=== PATIENT | female | born 1950 | race African-American/Black ===

== ENCOUNTER 2016-03-04 16:08 | Inpatient (IN) | payer OTHER ==
[~2016-03-04] VITALS: Ht 172.7 cm; Wt 134.2 kg
[~2016-03-04 16:08] MED LIST: LETR2.5T PO; LISI2.5T3 PO; LORTA5 PO
[2016-03-04 16:10] VITALS: BP 157/79; PULSE 80; RESP 20; TEMP 97.8; O2SAT 98
[2016-03-04] MEDS ORDERED: LETR2.5T PO (16:26)
[2016-03-04] MEDS ORDERED: LISI20TA3 PO (16:26)
[2016-03-04] MEDS ORDERED: SODIUM CHLOR 0.9% 1000 ML INJ 1,000 ML IV SCH ×4 (16:26→17:45)
[2016-03-04 16:27] VITALS: BP 190/86; PULSE 67; RESP 26; O2SAT 97
[2016-03-04] MEDS ORDERED: SODIUM CHLORIDE 0.9% FLUSH 5 ML FLUSH IVF PRN (16:30)
[2016-03-04] MEDS ORDERED: ONDANSETRON HCL 4 MG/2 ML VIAL IVP ONE (16:30)
[2016-03-04 16:45] LABS: BLOOD GAS BASE EXCESS -1.1 mmol/L (-2-2); BLOOD GAS CARBOXYHEMOGLOBIN 1.8 % (0-4); BLOOD GAS HCO3 23 mmol/L (22-26); BLOOD GAS METHEMOGLOBIN 1.9 % (0-2); BLOOD GAS O2 HGB SATURATION 90 % (90-100); BLOOD GAS OXYGEN CONTENT 17.9 Vol % (12.0-20.0); BLOOD GAS PCO2 35 mmHg (38-42); BLOOD GAS PO2 63 mmHG (61-120); BLOOD GAS TOTAL HGB 14.2 G/DL (12.0-16.0); CRITICAL VALUE NO; DRAW SITE RT RADIAL; FIO2 21 %; NUMBER OF ARTERIAL PUNCTURES 1; STAT YES; TEMP CORR TO 98.6; ULNAR PULSE PRESENT
--- NOTE | 2016-03-04 16:47 | PD ---
HPI Chief Complaint: Abdominal Pain Time Seen by Provider: 16:21 Travel History International Travel<30 days: No Contact w/Intl Traveler<30days: No Traveled to known affect area: No History of Present Illness HPI This is a 66-year-old female who presents to the emergency department having had onset of vomiting starting yesterday evening, severe, constant, unable to keep anything down today. She did have a loose stool yesterday prior to the onset of her symptoms. She denies any fevers or chills. She denies any dysuria or hematuria. She's never had symptoms like this before. Patient is quite lethargic and most of her history is obtained through her family member. The patient does deny any headache or chest pain. She's never had surgery on her abdomen. PFSH Past Medical History Cancer: Yes (breast) Diminished Hearing: No Hypertension: Yes Past Surgical History Hysterectomy: Yes Other Surgery: Yes (RT MASTECTOMY) Social History Alcohol Use: No Tobacco Use: No Substance Use: No Allergies-Medications (Allergen,Severity, Reaction): Coded Allergies: No Known Allergies (Verified , 02/18/15) Reported Meds & Prescriptions Reported Meds & Active Scripts Active Reported Letrozole 2.5 Mg Tab 1 Tab PO DAILY Lisinopril-Hctz 20-25 Mg Tab 1 Tab PO DAILY Review of Systems Except as stated in HPI: all other systems reviewed are Neg Physical Exam Narrative GENERAL:Ill appearing SKIN: Warm and dry. HEAD: Atraumatic. Normocephalic. EYES: Pupils equal and round. No injection or drainage. ENT: Moist mucous membranes NECK: Trachea midline. CARDIOVASCULAR: Regular rate and rhythm. No murmur appreciated. RESPIRATORY: Clear to auscultation. Breath sounds equal bilaterally. GASTROINTESTINAL: Abdomen soft, diffusely tender to palpation, worst in the upper abdomen with no rebound/guarding MUSCULOSKELETAL: No obvious deformities. NEUROLOGICAL: Awake and alert. No obvious cranial nerve deficits. Moving all extremities PSYCHIATRIC: Appropriate mood and affect; insight and judgment normal. Data Data Last Documented VS Vital Signs Date Time Temp Pulse Resp B/P Pulse Ox O2 Delivery O2 Flow Rate FiO2 03/04/16 17:30 70 14 204/90 96 Room Air 03/04/16 16:49 2.00 03/04/16 16:10 97.8 Orders Complete Blood Count With Diff (03/04/16 16:26) Comprehensive Metabolic Panel (03/04/16 16:26) Lipase (03/04/16 16:26) Lactic Acid (03/04/16 16:26) Prothrombin Time / Inr (Pt) (03/04/16 16:26) Act Partial Throm Time (Ptt) (03/04/16 16:26) Urinalysis - C+S If Indicated (03/04/16 16:26) Iv Access Insert/Monitor (03/04/16 16:26) Ecg Monitoring (03/04/16 16:26) Oximetry (03/04/16 16:26) Ondansetron Inj (Zofran Inj) (03/04/16 16:30) Sodium Chlor 0.9% 1000 Ml Inj (Ns 1000 M (03/04/16 16:26) Sodium Chloride 0.9% Flush (Ns Flush) (03/04/16 16:30) Chest, Single Ap (03/04/16 16:26) Sodium Chlor 0.9% 1000 Ml Inj (Ns 1000 M (03/04/16 16:30) Troponin I (03/04/16 16:26) Electrocardiogram (03/04/16 ) Arterial Blood Gas (Abg) (03/04/16 ) Blood Culture (03/04/16 16:52) Piperacil-Tazo 3.375 Gm Premix (Zosyn 3. (03/04/16 17:45) Us Abdomen Gallbladder (03/04/16 ) Sodium Chlor 0.9% 1000 Ml Inj (Ns 1000 M (03/04/16 17:45) Sodium Chlor 0.9% 1000 Ml Inj (Ns 1000 M (03/04/16 17:45) Morphine Inj (Morphine Inj) (03/04/16 17:45) Urine Culture (03/04/16 16:44) Mri Mrcp W/O Contrast (03/04/16 ) Admit Order (Ed Use Only) (03/04/16 18:02) Consult Gastroenterology (03/04/16 ) Labs Laboratory Tests Test 03/04/16 03/04/16 03/04/16 16:38 16:44 16:50 Blood Gas Puncture Site RT RADIAL Blood Gas Patient Temperature 98.6 Blood Gas HCO3 23 mmol/L Blood Gas Base Excess -1.1 mmol/L Blood Gas Oxygen Saturation 90 % Arterial Blood pH 7.42 Arterial Blood Partial 35 mmHg Pressure CO2 Arterial Blood Partial 63 mmHG Pressure O2 Arterial Blood Oxygen Content 17.9 Vol % Arterial Blood 1.8 % Carboxyhemoglobin Arterial Blood Methemoglobin 1.9 % Blood Gas Hemoglobin 14.2 G/DL Blood Gas Inspired Oxygen 21 % Urine Color DARK-BROWN Urine Turbidity HAZY Urine pH 5.5 Urine Specific [place] 1.025 Urine Protein 30 mg/dL Urine Glucose (UA) TRACE mg/dL Urine Ketones NEG mg/dL Urine Occult Blood SMALL Urine Nitrite NEG Urine Bilirubin MOD Urine Urobilinogen 8.0 MG/DL Urine Leukocyte Esterase NEG Urine RBC 2 /hpf Urine WBC 33 /hpf Urine Squamous Epithelial 1 /hpf Cells Urine Bacteria RARE /hpf Urine Hyaline Casts 7 /lpf Urine Granular Casts 1 /lpf Urine Mucus MOD /lpf Microscopic Urinalysis Comment CULTURE INDICATED White Blood Count 16.8 TH/MM3 Red Blood Count 5.09 MIL/MM3 Hemoglobin 14.5 GM/DL Hematocrit 43.3 % Mean Corpuscular Volume 85.1 FL Mean Corpuscular Hemoglobin 28.5 PG Mean Corpuscular Hemoglobin 33.5 % Concent Red Cell Distribution Width 13.9 % Platelet Count 246 TH/MM3 Mean Platelet Volume 9.2 FL Neutrophils (%) (Auto) 89.8 % Lymphocytes (%) (Auto) 2.7 % Monocytes (%) (Auto) 7.3 % Eosinophils (%) (Auto) 0.0 % Basophils (%) (Auto) 0.2 % Neutrophils # (Auto) 15.1 TH/MM3 Lymphocytes # (Auto) 0.4 TH/MM3 Monocytes # (Auto) 1.2 TH/MM3 Eosinophils # (Auto) 0.0 TH/MM3 Basophils # (Auto) 0.0 TH/MM3 CBC Comment DIFF FINAL Differential Comment Prothrombin Time 12.0 SEC Prothromb Time International 1.1 RATIO Ratio Activated Partial 24.3 SEC Thromboplast Time Sodium Level 138 MEQ/L Potassium Level 3.1 MEQ/L Chloride Level 100 MEQ/L Carbon Dioxide Level 25.4 MEQ/L Anion Gap 13 MEQ/L Blood Urea Nitrogen 14 MG/DL Creatinine 1.20 MG/DL Random Glucose 207 MG/DL Lactic Acid Level 4.5 mmol/L Calcium Level 10.5 MG/DL Total Bilirubin 4.0 MG/DL Aspartate Amino Transf 472 U/L (AST/SGOT) Alanine Aminotransferase 378 U/L (ALT/SGPT) Alkaline Phosphatase 154 U/L Troponin I LESS THAN 0.02 NG/ML Total Protein 8.5 GM/DL Albumin 3.7 GM/DL Lipase 7635 U/L [facility] Medical Decision Making Medical Screen Exam Complete: Yes Emergency Medical Condition: Yes Interpretation(s) Afebrile, no tachycardia, hypertensive, tachypneic Leukocytosis with left shift Mild hypokalemia Total bilirubin is 4 Transaminitis Lipase is 7635 Lactic acid is 4.5 PH is 7.42 Urinalysis demonstrates some white blood cells Differential Diagnosis Perforated ulcer, cholecystitis, colitis, cholangitis, ischemic bowel Narrative Course This is a 66-year-old female who presents to the emergency department ill- appearing after 2 days of vomiting and abdominal pain. She was placed on a monitor and 2 IVs were established. She was given 2 L of IV fluid up front, cultures were obtained and the patient was started on IV Zosyn. Upright plain films demonstrated no free air. Labs resulted in were consistent with cholangitis and sepsis. Patient is given an additional 2 L of IV fluid. I spoke to Dr. Reyes on-call for GI who ordered an MRCP. Ultrasound is also pending. Patient will be admitted to the intensive care unit for concern for possible deterioration as she was quite ill-appearing on arrival. Critical Care Narrative Aggregate critical care time was 60 minutes. Time to perform other separately billable procedures was not included in the critical care time. My time did not include minutes spent treating any other patients simultaneously or on activities that did not directly contribute to the patient's treatment. The services I provided to this patient were to treat and/or prevent clinically significant deterioration that could result in: Disability, I provided critical care services requiring my management, as noted below: Chart data review, documentation time, medication orders and management, vital sign assessments/reviewing monitor data, ordering and reviewing lab tests, ordering and interpreting/reviewing x-rays and diagnostic studies, care of the patient and discussion of the patient with the admitting physicians. Diagnosis Primary Impression: Cholangitis Admitting Information Admitting Physician Requests: Admit Jina Farias MD Mar 04, 2016 16:47
[2016-03-04 16:49] VITALS: O2SAT 95
[2016-03-04 17:20] LABS: AUTOMATED NEUTROPHIL # 15.1 TH/MM3 (1.8-7.7); BASOPHIL % 0.2 % (0.0-2.0); HEMATOCRIT 43.3 % (35.0-46.0); HEMO FLAGS DIFF FINAL; LYMPH % 2.7 % (9.0-44.0); LYMPHOCYTE # 0.4 TH/MM3 (1.0-4.8); MEAN CELL VOLUME 85.1 FL (80.0-100.0); MEAN CORPUSCULAR HEMOGLOBIN 28.5 PG (27.0-34.0); MEAN CORPUSCULAR HGB CONC 33.5 % (32.0-36.0); MONO % 7.3 % (0.0-8.0); NEUT % 89.8 % (16.0-70.0); PLATELET COUNT 246 TH/MM3 (150-450); RED BLOOD COUNT 5.09 MIL/MM3 (4.00-5.30); RED CELL DISTRIBUTION WIDTH 13.9 % (11.6-17.2); WHITE BLOOD COUNT 16.8 TH/MM3 (4.0-11.0)
--- NOTE | 2016-03-04 17:23 | RADRPT ---
EXAM DATE/TIME: 03/04/2016 16:52 [facility] COMPARISON: No previous studies available for comparison. INDICATIONS : Possible Free Air MEDICAL HISTORY : Hypertension. SURGICAL HISTORY : Mastectomy, right. Hysterectomy. ENCOUNTER: Initial ACUITY: 1 day PAIN SCORE: 10/10 LOCATION: Abdominal FINDINGS: There is mild elevation of the right hemidiaphragm. The heart is mildly enlarged. The pulmonary vas cular pattern is normal. The lungs are clear. CONCLUSION: 1. Mild cardiomegaly. 2. No acute focal pulmonary infiltrate or pulmonary vascular congestion. 3. Mild elevation of right hemidiaphragm. Odilon Butler MD on March 04, 2016 at 17:17 Board Certified Radiologist. This report was verified electronically.
[2016-03-04 17:30] VITALS: BP 204/90; PULSE 70; RESP 14; O2SAT 96
[2016-03-04 17:32] LABS: ALT (GPT) 378 U/L (10-53); ANION GAP 13 MEQ/L (5-15); AST (GOT) 472 U/L (15-37); BICARBONATE 25.4 MEQ/L (21.0-32.0); BLOOD UREA NITROGEN 14 MG/DL (7-18); CHLORIDE 100 MEQ/L (98-107); POTASSIUM 3.1 MEQ/L (3.5-5.1); SODIUM (NA) 138 MEQ/L (136-145)
[2016-03-04 17:36] LABS: BACTERIA, URINE RARE /hpf; BLOOD, URINE SMALL (NEG); COMMENT (UR) CULTURE INDICATED; CULTURE IF INDICATED CULTURE INDICATED; GLUCOSE,URINE TRACE mg/dL (NEG); GRANULAR CAST, URINE 1 /lpf; HYALINE CAST, URINE 7 /lpf (RARE); KETONE, URINE NEG (NEG); MUCUS URINE MOD /lpf (OCC); NITRITE,URINE NEG (NEG); PH, URINE 5.5 (5.0-8.5); SQUAMOUS EPITHELIAL CELL URINE 1 /hpf (0-5)
[2016-03-04 17:36] LABS: ALKALINE PHOSPHATASE 154 U/L (45-117)
[2016-03-04 17:44] LABS: APTT (PATIENT) 24.3 SEC (24.3-30.1); INTERNATIONAL NORMALIZED RATIO 1.1 RATIO
[2016-03-04] MEDS ORDERED: PIPERACIL-TAZO 3.375 GM PREMIX 50 ML IV ONE (17:45)
[2016-03-04] MEDS ORDERED: MORPHINE SULFATE 4 MG/ML INJ IV PUSH ONE (17:45)
[2016-03-04 17:49] LABS: URINE COLOR DARK-BROWN (YELLW/STRAW)
[2016-03-04] MEDS: SODIUM CHLOR 0.9% 1000 ML INJ 1,000 ML IV SCH (18:07)
[2016-03-04] MEDS ORDERED: SODIUM CHLORIDE 0.9% FLUSH 5 ML FLUSH IV FLUSH PRN (18:15)
[2016-03-04] MEDS ORDERED: MAGNESIUM SULFATE INJ 4 GM in SODIUM CHLORIDE 0.9% INJ 92 ML IV PRN (18:15)
[2016-03-04] MEDS ORDERED: MORPHINE SULFATE 4 MG/ML INJ IV PRN (18:15)
[2016-03-04] MEDS ORDERED: POTASSIUM PHOSPHATE MONOBASIC 500 MG TAB PO/TUBE PRN (18:15)
[2016-03-04] MEDS ORDERED: SODIUM PHOSPHATE INJ 30 MMOL in SODIUM CHLOR 0.9% 250 ML INJ 240 ML IV PRN (18:15)
[2016-03-04] MEDS ORDERED: POTASSIUM CHLOR 40 MEQ PREMIX 100 ML IV PRN ×2 (18:15)
[2016-03-04] MEDS ORDERED: CHLORHEXIDINE GLUCONATE 2 % 1 PACK (2 CLOTHS) TOP PRN (18:15)
[2016-03-04] MEDS ORDERED: LABETALOL HCL 100 MG/20 ML VIAL IV PUSH PRN (18:15)
[2016-03-04] MEDS ORDERED: RESP: ALBUTEROL 2.5 MG/IPRATROPIUM 0.5 MG NEB (PRN) INH (18:15)
[2016-03-04] MEDS ORDERED: MAGNESIUM SULFATE INJ 2 GM in SODIUM CHLORIDE 0.9% INJ 96 ML IV PRN (18:15)
[2016-03-04] MEDS ORDERED: ONDANSETRON HCL 4 MG/2 ML VIAL IV PRN (18:15)
[2016-03-04] MEDS ORDERED: POTASSIUM PHOSPHATE INJ 30 MMOL in SODIUM CHLOR 0.9% 250 ML INJ 250 ML IV PRN (18:15)
[2016-03-04] MEDS ORDERED: MISCELLANEOUS NURSING INFORMATION XX SCH (18:15)
[2016-03-04] MEDS ORDERED: POTASSIUM CL 40 MEQ/30 ML LIQ UDC PO/TUBE PRN ×2 (18:15)
[2016-03-04] MEDS ORDERED: POTASSIUM CHLOR 20 MEQ PREMIX 100 ML IV PRN (18:15)
[2016-03-04] MEDS ORDERED: MAGNESIUM OXIDE 400 MG TAB PO PRN (18:15)
--- NOTE | 2016-03-04 18:35 | MB ---
cc: SCOT BROWN M.D. DATE OF CONSULTATION: 03/04/2016. REASON FOR CONSULTATION: Pancreatitis, possible cholecystitis versus common bile duct obstruction. DATE OF : 1950. REFERRING PHYSICIAN: Dr. Farias. HISTORY OF PRESENT ILLNESS: Mrs. Dalton is a very pleasant 66-year-old lady who was in her usual state of health when she suddenly developed nausea and vomiting yesterday evening with severe abdominal pain, unable to keep anything down. She did have some loose stools yesterday prior to her symptoms developing. She also had complained of some abdominal pain. At this point, the patient is complaining of diffuse abdominal pain. She did have some chills at home, unclear if she had fever or not. She denies any previous history of similar symptoms. No history of gallstones or pancreatic issues. She had a colonoscopy some time ago and according to her it was normal. PAST MEDICAL HISTORY: 1. Breast cancer status post surgery. 2. High blood pressure. PAST SURGICAL HISTORY: 1. Double mastectomy. 2. Hysterectomy. SOCIAL HISTORY: She denies smoking, drinking or drug use. ALLERGIES: NO KNOWN ALLERGIES. MEDICATIONS: 1. Letrozole. 2. Lisinopril. REVIEW OF SYSTEMS: CONSTITUTIONAL: She did have chills, felt sick. HEAD, EYES, EARS, NOSE, THROAT: No alteration in baseline hearing or visual acuity. PULMONARY: Denies any chest pain or shortness of breath. GASTROINTESTINAL: As above. GENITOURINARY: Denies any dysuria or hematuria. HEMATOLOGICAL: Denies any history of anemia or bleeding disorder. SKIN: No alteration in baseline skin lesions. NEUROLOGICAL: No history of TIA or CVA kind of symptoms. PHYSICAL EXAMINATION: GENERAL: On clinical exam, she is sitting in bed in mild distress. She looks sick. VITAL SIGNS: Temperature 97.8, pulse 80, respirations 20, blood pressure 157/79. HEAD, EYES, EARS, NOSE, THROAT: Pupils equal, round and reactive to light and accommodation. Mild jaundice. NECK: No jugular venous distention. No lymphadenopathy. CHEST: Clear to auscultation and palpation. CARDIOVASCULAR: S1 and S2, no murmur. ABDOMEN: Abdomen soft and obese, diffuse tenderness. Bowel sounds are present. LINING PARTS SEWER: Awake, alert and oriented times three. No focal signs identified. LABORATORY STUDIES: Her white count is 16.8, hemoglobin 14.5, platelets 246,000. PT/INR normal. Her chemistry IS suggestive of A glucose of 207, calcium 10.5 total bilirubin 4, AST 472 with ALT 378, alkaline phosphatase 154, lipase 7635. Urine test is pending. MEDICATIONS: She was started on: 1. Piperacillin. 2. IV fluids. 3. Morphine. 4. Zofran. IMAGING STUDIES: There are no abdominal images at this time. The patient just had a chest x-ray shows mild cardiomegaly and mild elevation of the right diaphragm. IMPRESSION: Mrs. Dalton is a very pleasant 66-year-old lady admitted with acute pancreatitis most likely biliary origin, concern for possible cholecystitis or cholangitis. RECOMMENDATIONS: 1. IV fluids. 2. IV antibiotics. 3. Right upper quadrant ultrasound was already ordered by the emergency room doctors. 4. STAT MRCP. 5. Lipid profile. 6. Direct and indirect bilirubin. 7. Protonix drip. 8. Supportive care. 9. Agree with admission to the intensive care unit. Further recommendation depending on the patient's clinical status and the imaging results. If any indication of common bile duct obstruction, may need ERCP. If any indication of cholecystitis, may need surgical consultation. Risks and benefits of possible ERCP were discussed with the patient and family at bedside and discussed with the emergency room physician. MD KIMBERLY MarvinB/PAM /6:06 PM /6:24 PM [facility]ENTERFifi
[2016-03-04] MEDS: PANTOPRAZOLE SODIUM 40 MG VIAL IV SCH (18:54)
--- NOTE | 2016-03-04 18:57 | RADRPT ---
EXAM DATE/TIME: 03/04/2016 18:24 [facility] COMPARISON: CT ABDOMEN & PELVIS W/O CONTRAST, February 18, 2015, 2:32. INDICATIONS : Pancreatitis. MEDICAL HISTORY : Hypertension. SURGICAL HISTORY : Hysterectomy. Mastectomy, right. ENCOUNTER: Initial ACUITY: 1 day PAIN SCORE: 4/10 LOCATION: Abdomen TECHNIQUE: Multiplanar, multisequence magnetic resonance imaging of the abdomen was performed. High-resolution 3D dataset was utilized to reconstruct maximum-intensity projection (MIP) images. FINDINGS: Breathing motion artifact degrades the examination. INTRAHEPATIC BILE DUCTS: Within normal limits. No significant anatomical variant is present. EXTRAHEPATIC BILE DUCTS: The common bile duct measures 6 mm. No stone or filling defect is identified. It does show a signific ant caliber change within the pancreatic head. It tapers to 1-2 mm. No discrete mass observed. GALLBLADDER: A few tiny stones are seen layering within the gallbladder. No gallbladder wall thickening. No disten tion of the gallbladder. LIVER: Normal size and signal intensity. No concerning liver lesion is identified on this non-contrast exam. PANCREAS: The pancreas is diffusely edematous and there is fluid throughout the retroperitoneum. No abscess or pseudocyst. No pancreatic ductal dilatation. No discrete mass. OTHER: The remaining visualized structures demonstrate no acute abnormality on this non-contrast exam. Tiny cortical cysts are seen involving each kidney. CONCLUSION: 1. Extensive edema throughout the retroperitoneum and pancreas. No abscess or pseudocyst. 2. Tiny layering gallstones within the gallbladder. No discrete common bile duct stone. There is tape ring of the common bile duct within the pancreatic head felt to be secondary to the edema within the pancreas. No discrete mass or choledocholithiasis. No intrahepatic or extrahepatic ductal dilatation. Maxwell Hsu Jr., MD on March 04, 2016 at 18:45 Board Certified Radiologist. This report was verified electronically.
[2016-03-04 20:00] VITALS: BP 207/87; PULSE 80; PULSE 96; RESP 24; TEMP 98; O2SAT 100
[2016-03-04] MEDS ORDERED: PIPERACIL-TAZO 4.5 GM PREMIX 100 ML IV SCH (20:00)
[2016-03-04] MEDS ORDERED: hydrALAZINE HCL 20 MG/ML VIAL IV PUSH PRN (20:00)
[2016-03-04 20:09] LABS: HDL CHOLESTEROL 64.2 MG/DL (40.0-60.0)
--- NOTE | 2016-03-04 20:22 | RADRPT ---
EXAM DATE/TIME: 03/04/2016 19:36 [facility] COMPARISON: No previous studies available for comparison. INDICATIONS : Right upper quadrant pain. MEDICAL HISTORY : Hypertension. Carcinoma, breast. SURGICAL HISTORY : Hysterectomy. Mastectomy, right. ENCOUNTER: Initial ACUITY: 2 days PAIN SCORE: 10/10 LOCATION: Right upper quadrant MEASUREMENTS: LIVER: 12.3 cm length COMMON DUCT: 4 mm RIGHT KIDNEY: 10.8 x 4.8 x 5.6 cm FINDINGS: The wall of the gallbladder is thickened. There is pericholecystic fluid. There is a gallstone with in the neck of the gallbladder. The findings raise the possibility of acute cholecystitis. Clinical correlation is recommended. There is free fluid within the expected region of Polanco's pouch. The liver is normal in size but demonstrates diffuse increased echogenicity consistent with probable fat ty infiltration. No focal hepatic mass is noted. No biliary ductal dilatation is noted. There is h epatopetal flow within the portal vein. The common bile duct is normal in caliber. There is poor vi sualization of the pancreas due to shadowing bowel gas. The right kidney is unremarkable without haily id mass or hydronephrosis. No stone is noted within the right kidney. CONCLUSION: 1. Thick-walled gallbladder with some pericholecystic fluid and multiple gallstones in the region of the neck. The findings are suggestive of acute cholecystitis. Clinical correlation is recommended. 2. Fatty liver. 3. Minimal ascites within Polanco's pouch. 4. Poor visualization of the pancreas due to shadowing bowel gas. Odilon Butler MD on March 04, 2016 at 20:14 Board Certified Radiologist. This report was verified electronically.
[2016-03-04] MEDS: HYDROmorphone HCL PF 1 MG/ML VIAL IV PRN (20:42)
[2016-03-04] MEDS ORDERED: SODIUM CHLORIDE 0.9% FLUSH 5 ML FLUSH IV FLUSH SCH (21:00)
[2016-03-04] MEDS: ENALAPRILAT 1.25 MG/ML VIAL IV PUSH SCH (22:10)
--- NOTE | 2016-03-04 22:12 | HHI.HP ---
[facility] Service Critical Care Medicine Primary Care Physician Vic Diaz, DO Admission Diagnosis cholangitis Diagnosis: (1) Severe sepsis with acute organ dysfunction Diagnosis: Principal (2) Cholangitis Diagnosis: Principal (3) Hypertensive urgency Diagnosis: Secondary Chief Complaint: Epigastric pain with vomiting for over 48 hours. Unable to eat or swallow her BP meds. Travel History International Travel<30 Days: No Contact w/Intl Traveler <30 Da: No Traveled to Known Affected Are: No Sepsis Criteria SIRS Criteria (2 or more): Heart rate over 90, WBC > 24342, < 4000 or > 10% bands Sepsis Criteria (SIRS+source): Infect source susp/known Severe Sepsis (+one): Organ Dysfunction, Lactate >2, Acute Oliguria/Renal Failure Criteria Outcome: Meets severe sepsis criteria History of Present Illness > 48 hour history of epigastric pain, vomiting. GB US reveals cholecystitis with stones in neck. MRCP - pancreatitis, ducts not dilated. Review of Systems ROS Vomiting, abdominal pain > 48 hrs. Past Family Social History Allergies: Coded Allergies: No Known Allergies (Verified , 02/18/15) Past Medical History Past Medical History Cancer: Yes (breast) Diminished Hearing: No Hypertension: Yes Past Surgical History Hysterectomy: Yes Other Surgery: Yes (RT MASTECTOMY) Social History Alcohol Use: No Tobacco Use: No Substance Use: No Allergies-Medications Allergies-Medications (Allergen,Severity, Reaction): Coded Allergies: No Known Allergies (Verified , 02/18/15) Reported Meds & Prescriptions Reported Meds & Active Scripts Active Reported Letrozole 2.5 Mg Tab 1 Tab PO DAILY Lisinopril-Hctz 20-25 Mg Tab 1 Tab PO DAILY Physical Exam Vital Signs Vital Signs Date Time Temp Pulse Resp B/P Pulse Ox O2 Delivery O2 Flow Rate FiO2 03/04/16 17:30 70 14 204/90 96 Room Air 03/04/16 16:49 95 Nasal Cannula 2.00 03/04/16 16:27 67 26 190/86 97 Room Air 03/04/16 16:10 97.8 80 20 157/79 98 Room Air Physical Exam Gen: Ill-appearing elderly woman. Head: Normal, flushed face. Neck: Supple, airway widely patent. Lungs: Clear with tachypnea, shallow breaths limited by abdominal pain. Heart: NL S1S2, no m,r. RRR. neck veins are flat. Abdomen: Diffusely tender to mild palpation, > RUQ, epigastrium No peritoneal irritation. BS few. Extremities: Flushed, warm, diaphoretic. Neuro: Lethargic, weak. O X 3. Follows commands, moves 4 limbs spontaneously. Laboratory Laboratory Tests Test 03/04/16 03/04/16 03/04/16 16:38 16:44 16:50 Blood Gas Puncture Site RT RADIAL Blood Gas Patient Temperature 98.6 Blood Gas HCO3 23 Blood Gas Base Excess -1.1 Blood Gas Oxygen Saturation 90 Arterial Blood pH 7.42 Arterial Blood Partial 35 Pressure CO2 Arterial Blood Partial 63 Pressure O2 Arterial Blood Oxygen Content 17.9 Arterial Blood 1.8 Carboxyhemoglobin Arterial Blood Methemoglobin 1.9 Blood Gas Hemoglobin 14.2 Blood Gas Inspired Oxygen 21 Urine Color DARK-BROWN Urine Turbidity HAZY Urine pH 5.5 Urine Specific [place] 1.025 Urine Protein 30 Urine Glucose (UA) TRACE Urine Ketones NEG Urine Occult Blood SMALL Urine Nitrite NEG Urine Bilirubin MOD Urine Urobilinogen 8.0 Urine Leukocyte Esterase NEG Urine RBC 2 Urine WBC 33 Urine Squamous Epithelial 1 Cells Urine Bacteria RARE Urine Hyaline Casts 7 Urine Granular Casts 1 Urine Mucus MOD Microscopic Urinalysis Comment CULTURE INDICATED White Blood Count 16.8 Red Blood Count 5.09 Hemoglobin 14.5 Hematocrit 43.3 Mean Corpuscular Volume 85.1 Mean Corpuscular Hemoglobin 28.5 Mean Corpuscular Hemoglobin 33.5 Concent Red Cell Distribution Width 13.9 Platelet Count 246 Mean Platelet Volume 9.2 Neutrophils (%) (Auto) 89.8 Lymphocytes (%) (Auto) 2.7 Monocytes (%) (Auto) 7.3 Eosinophils (%) (Auto) 0.0 Basophils (%) (Auto) 0.2 Neutrophils # (Auto) 15.1 Lymphocytes # (Auto) 0.4 Monocytes # (Auto) 1.2 Eosinophils # (Auto) 0.0 Basophils # (Auto) 0.0 CBC Comment DIFF FINAL Differential Comment Prothrombin Time 12.0 Prothromb Time International 1.1 Ratio Activated Partial 24.3 Thromboplast Time Sodium Level 138 Potassium Level 3.1 Chloride Level 100 Carbon Dioxide Level 25.4 Anion Gap 13 Blood Urea Nitrogen 14 Creatinine 1.20 Random Glucose 207 Lactic Acid Level 4.5 Calcium Level 10.5 Total Bilirubin 4.0 Direct Bilirubin 2.9 Aspartate Amino Transf 472 (AST/SGOT) Alanine Aminotransferase 378 (ALT/SGPT) Alkaline Phosphatase 154 Troponin I LESS THAN 0.02 Total Protein 8.5 Albumin 3.7 Triglycerides Level 117 Cholesterol Level 222 LDL Cholesterol 134 HDL Cholesterol 64.2 Cholesterol/HDL Ratio 3.45 Lipase 7635 Date/Time Procedure Status Source Growth 03/04/16 16:55 Aerobic Blood Culture Received Blood Peripheral Pending 03/04/16 16:55 Anaerobic Blood Culture Received Blood Peripheral Pending 03/04/16 16:44 Urine Culture Received Urine Clean Catch Pending Result Diagram: 03/04/16 1650 03/04/16 1650 Assessment and Plan Problem List: (1) Severe sepsis with acute organ dysfunction ICD Code: A41.9 Status: Acute (2) Cholangitis ICD Code: K83.0 Status: Acute (3) Hypertensive urgency ICD Code: I16.0 Status: Acute Assessment and Plan PLAN: CV: Aggressive hydration with NS to produce urine > 30/hr. IV hydralazine and labetalol. Hold GIFTY-I until better hydrated. RESP: Suppl O2 to keep sats > 92%. May require BiPAP. NEURO: Analgesia required. GI: NPO, consider NG decompression and bowel rest. ERCP/sphincterotomy planned REN. Serial LFTs, lipase. : Azul required for assessment of hydration status. HEME: Serial WBC. ID: [id number] coverage has been started, adjust for C&S blood. ENDO: Follow glucose, calcium closely. Anticipate glucose intolerance and hypocalcemia. RENAL: Electrolyte repalcement protocol. Hydration with isotonic solution. PROPHYLAXIS:Heparin sq tid, protonix. Overall impression: This woman presented with severe sepsis from cholangitis, marked dehydration, and lactic acidosis. She has been aggressively hydrated and loaded with IV antibiotics. She remains critically ill with a life-threatening biliary tract infection and requires attempt at emergency biliary decompression as soon as possible. Critical Care 48 mins aside from procedures Carl Maxwell MD Mar 04, 2016 22:12
[2016-03-04] MEDS ORDERED: SODIUM CHLOR 0.9% 1000 ML INJ 1,000 ML IV ONE (22:15)
[2016-03-04] MEDS ORDERED: IOHEXOL 350 MG/ML 100 ML BTL (for RAD DIAG) OTHER ONE (23:00)
[2016-03-05] VITALS (13 sets, daily range): BP systolic 93–160; BP diastolic 54–81; PULSE 80–132; RESP 14–27; TEMP 98.4–99.9; O2SAT 93–100
[2016-03-05] MEDS ORDERED: ONDANSETRON HCL 4 MG/5 ML UDC ONE (00:01)
--- NOTE | 2016-03-05 00:47 | RADRPT ---
EXAM DATE/TIME: 03/04/2016 23:02 [facility] COMPARISON: US ABDOMEN - GALLBLADDER, March 04, 2016, 19:36. INDICATIONS : Distal Common Bile Duct stricture, CDB stent placement. The right upper quadrant pain. Patient had an abnormal ultrasound demonstrating gallbladder wall thickening with pericholecystic fluid and multipl e gallstones. FLUORO TIME: 8.01 minutes IMAGE COUNT: 6 CONTRAST: Instilled by Ordering Physician MEDICAL HISTORY : Hypertension. Carcinoma, breast. SURGICAL HISTORY : Hysterectomy. Mastectomy, right. ENCOUNTER: Initial ACUITY: 1 day PAIN SCORE: Non-responsive. LOCATION: Abdomen FINDINGS: An ERCP was performed by the ordering physician. The images demonstrate placement of an endoscope and cannulization of the distal common bile duct. Th e common bile duct is within normal limits with no definite filling defects. The pancreatic duct is u nremarkable. The last image demonstrates placement of a stent catheter. CONCLUSION: ERCP as above. Vidal Ye MD on March 05, 2016 at 0:43 Board Certified Radiologist. This report was verified electronically.
[2016-03-05] MEDS: HYDROmorphone HCL PF 1 MG/ML VIAL IV PRN ×2 (01:18→19:36)
[2016-03-05] MEDS: SODIUM CHLOR 0.9% 1000 ML INJ 1,000 ML IV SCH ×4 (01:30→21:45)
[2016-03-05] MEDS: ENALAPRILAT 1.25 MG/ML VIAL IV PUSH SCH (02:00)
[2016-03-05 03:50] LABS: AUTOMATED NEUTROPHIL # 8.1 TH/MM3 (1.8-7.7); BASOPHIL % 0.4 % (0.0-2.0); HEMATOCRIT 37.4 % (35.0-46.0); HEMO FLAGS DIFF FINAL; LYMPH % 6.9 % (9.0-44.0); LYMPHOCYTE # 0.7 TH/MM3 (1.0-4.8); MEAN CELL VOLUME 86.5 FL (80.0-100.0); MEAN CORPUSCULAR HEMOGLOBIN 28.5 PG (27.0-34.0); MONO % 9.3 % (0.0-8.0); NEUT % 83.4 % (16.0-70.0); PLATELET COUNT 191 TH/MM3 (150-450); RED BLOOD COUNT 4.32 MIL/MM3 (4.00-5.30); RED CELL DISTRIBUTION WIDTH 14.3 % (11.6-17.2); WHITE BLOOD COUNT 9.7 TH/MM3 (4.0-11.0)
[2016-03-05] MEDS ORDERED: CHLORHEXIDINE GLUCONATE 2 % 1 PACK (2 CLOTHS) TOP SCH (04:00)
[2016-03-05] MEDS ORDERED: PIPERACIL-TAZO 4.5 GM PREMIX 100 ML IV SCH ×2 (04:00→07:00)
[2016-03-05 04:26] LABS: ALT (GPT) 292 U/L (10-53); ANION GAP 8 MEQ/L (5-15); AST (GOT) 355 U/L (15-37); BICARBONATE 23.8 MEQ/L (21.0-32.0); BLOOD UREA NITROGEN 14 MG/DL (7-18); CHLORIDE 110 MEQ/L (98-107); GLOMERULAR FILTRATION RATE 67 ML/MIN (>89); SODIUM (NA) 142 MEQ/L (136-145)
[2016-03-05 04:34] LABS: ALKALINE PHOSPHATASE 120 U/L (45-117); POTASSIUM 4.9 MEQ/L (3.5-5.1); TOTAL BILIRUBIN ADULT 5.3 MG/DL (0.2-1.0)
[2016-03-05] MEDS ORDERED: NITROGLYCERIN 2% OINT 1 GM PACKET TOPICAL PRN (06:45)
[2016-03-05] MEDS ORDERED: MISCELLANEOUS NURSING INFORMATION XX SCH (07:00)
[2016-03-05] MEDS ORDERED: SODIUM CHLORIDE 0.9% FLUSH 5 ML FLUSH IV FLUSH PRN (07:00)
[2016-03-05] MEDS ORDERED: DEXTROSE 50% IN WATER 50 ML VIAL(D50) IV PUSH PRN (07:00)
[2016-03-05] MEDS ORDERED: HEPARIN SODIUM - SQ 10,000 UNITS/ML VIAL SQ SCH (07:00)
[2016-03-05] MEDS ORDERED: GLUCAGON 1 MG/ML VIAL OTHER PRN (07:00)
[2016-03-05] MEDS ORDERED: cefTRIAXone INJ 1,000 MG in SODIUM CHLORIDE 0.9% INJ 100 ML IV SCH (07:00)
[2016-03-05] MEDS ORDERED: CHLORHEXIDINE GLUCONATE 2 % 1 PACK (2 CLOTHS) TOP PRN (07:00)
[2016-03-05] MEDS ORDERED: ONDANSETRON HCL 4 MG/2 ML VIAL IV PRN (07:00)
[2016-03-05] MEDS ORDERED: SENNOSIDES 8.6 MG TAB PO PRN (07:00)
--- NOTE | 2016-03-05 07:16 | HHI.CCPN ---
Subjective Remarks/Hospital Course > 48 hour history of epigastric pain, vomiting. GB US reveals cholecystitis with stones in neck. MRCP - pancreatitis, ducts not dilated. Subjective 03/05: Status post ERCP with stent placement, bile duct secondary to stricture overnight. Pain is currently 8/10. Cleared for clear liquid as by GI. Hemodynamically stable. Urine output is picking up. Objective Vital Signs Date Time Temp Pulse Resp B/P Pulse Ox O2 Delivery O2 Flow Rate FiO2 03/05/16 06:00 97 03/05/16 04:00 98.6 14 151/70 99 03/04/16 20:00 Nasal Cannula 4.00 Intake and Output 03/04/16 03/04/16 03/04/16 07:59 15:59 23:59 Intake Total 2000 ml Output Total 200 ml Balance 1800 ml Result Diagram: 03/05/16 0338 03/05/16 0338 Other Results Microbiology Date/Time Procedure Status Source Growth 03/04/16 16:55 Aerobic Blood Culture Received Blood Peripheral Pending 03/04/16 16:55 Anaerobic Blood Culture Received Blood Peripheral Pending 03/04/16 16:44 Urine Culture Received Urine Clean Catch Pending Imaging Last Impressions GI Procedure 03/05/16 0000 Signed Impressions: Service Date/Time: Friday, March 04, 2016 23:02 - CONCLUSION: ERCP as above. Vidal Ye MD Chest X-Ray 03/04/16 1626 Signed Impressions: Service Date/Time: Friday, March 04, 2016 16:52 - CONCLUSION: 1. Mild cardiomegaly. 2. No acute focal pulmonary infiltrate or pulmonary vascular congestion. 3. Mild elevation of right hemidiaphragm. Odilon Butler MD Gall Bladder Ultrasound 03/04/16 0000 Signed Impressions: Service Date/Time: Friday, March 04, 2016 19:36 - CONCLUSION: 1. Thick-walled gallbladder with some pericholecystic fluid and multiple gallstones in the region of the neck. The findings are suggestive of acute cholecystitis. Clinical correlation is recommended. 2. Fatty liver. 3. Minimal ascites within Polanco's pouch. 4. Poor visualization of the pancreas due to shadowing bowel gas. Odilon Butler MD Cholangiopancreatography MRI 03/04/16 0000 Signed Impressions: Service Date/Time: Friday, March 04, 2016 18:24 - CONCLUSION: 1. Extensive edema throughout the retroperitoneum and pancreas. No abscess or pseudocyst. 2. Tiny layering gallstones within the gallbladder. No discrete common bile duct stone. There is tapering of the common bile duct within the pancreatic head felt to be secondary to the edema within the pancreas. No discrete mass or choledocholithiasis. No intrahepatic or extrahepatic ductal dilatation. Maxwell Hsu Jr., MD Objective Remarks GENERAL: 66-year-old AA female, critically ill currently resting in bed in no acute distress SKIN: Warm and dry. No rash HEAD: Atraumatic. Normocephalic. EYES: Pupils equal and round around 3 mm bilaterally and reactive. No scleral icterus. No injection or drainage. ENT: No nasal bleeding or discharge. Mucous membranes pink and moist. NECK: Trachea midline. No JVD. CARDIOVASCULAR: Regular rate and rhythm. S1, S2. No S4. Without murmur RESPIRATORY: Clear to auscultation. Breath sounds equal bilaterally. GASTROINTESTINAL: Abdomen obese. Tender to palpation right upper quadrant/ epigastric region with no rebound. Voluntary guarding. No rigidity. Hypoactive bowel sounds MUSCULOSKELETAL: Extremities trace lower extremity pedal edema. No obvious deformities. NEUROLOGICAL: Awake and alert. No obvious cranial nerve deficits. Motor grossly within normal limits. Five out of 5 muscle strength in the arms and legs. Normal speech. PSYCHIATRIC: Appropriate mood and affect; insight and judgment normal. A/P Problem List: (1) Severe sepsis with acute organ dysfunction ICD Code: A41.9 Status: Acute (2) Cholangitis ICD Code: K83.0 Status: Acute (3) Hypertensive urgency ICD Code: I16.0 Status: Acute Assessment and Plan Neuro/Psych: Pain management for acute pancreatitis Datil 5/325 one every 4 hours/Dilaudid 1 mg IV every 4 hours when necessary for pain management CV: Severe sepsis from cholangitis Hypertension Dyslipidemia Lactic acidosis Status post 3 L normal saline bolus in ED. Currently on NS @ 150 cc an hour. Continue hydration Holding home medications lisinopril/HCTZ 20/25 one tablet daily until better hydrated Noted elevated HDL/LDL/total cholesterol. Consider starting statin when appropriate once LFTs normalize As needed labetalol, hydralazine, Nitropaste for blood pressure control of present Lactates subjective cleared currently 2.2. Recheck in a.m. Resp: Nasal cannula to maintain saturations greater than equal to 90% Incentive spirometry while awake GI: Status post ERCP/placement of stenting, bile duct secondary to stenosis Pancreatitis Transaminitis Hypo-albuminemia Dr. Lucero/GI performed ERCP with stent placement, common bile duct secondary to stricture Ultrasound revealed thickening in the gallbladder with pericholecystic fluid. Tiny gallstones noted. MRCP revealed retroperitoneal edema, with edema causing potentially narrowing of the distal common bile duct LFTs/lipase ordered for a.m. Protonix for GI prophylaxis Colace/as needed Senokot for bowel regimen : Azul if needed for accurate I's and O's in critically ill patient Endo: Hyperglycemia of critical illness Sliding-scale insulin. Accu-Cheks before meals/at bedtime to maintain euglycemia. Low regimen. Renal: Creatinine currently within normal limits. Follow BMP in a.m. Heme/Onc: History of breast cancer status post right mastectomy CBC/cordis within normal limits this exam. Follow-up labs in a.m. Currently holding Letrozole 2.5 mg daily with elevated LFTs. Resume when clinically indicated ID: UTI Day #2 Zosyn. Narrow spectrum once cultures obtained. Pertinent cultures 03/04 - blood cultures 2 - pending 03/04 - urine - pending FEN: Replace electrolytes as clinically indicated per ICU electrolyte protocol On clear liquid diet per GI MSK: Out of bed/PT evaluate and treat Access - Utilize peripheral IV. Central line if clinically indicated Prophylaxis - GI - Protonix - DVT - SCD/heparin Critical Care: The total critical care time was 45 minutes. Time to perform other separately billable procedures was not included in the critical care time. Rosalio Bowie MD Mar 05, 2016 07:16
[2016-03-05] MEDS: ACETAMINOPHEN/HYDROcodone 325 MG/5 MG TAB PO PRN ×2 (09:29→15:32)
[2016-03-05] MEDS: DOCUSATE SODIUM 100 MG CAP PO SCH ×2 (09:29→19:35)
[2016-03-05] MEDS: SODIUM CHLORIDE 0.9% FLUSH 5 ML FLUSH IV FLUSH SCH ×2 (09:30→19:36)
[2016-03-05] MEDS: PANTOPRAZOLE SODIUM 40 MG VIAL IV SCH (09:30)
--- NOTE | 2016-03-05 09:39 | PD.CONS ---
HPI Service General Surgery Consult Requested By Dr. Fairchild Reason for Consult Gallstones pancreatitis, possible cholecystitis Primary Care Physician Vic Diaz DO History of Present Illness Ms. Dalton is a 66 yo F who developed epigastric abdominal pain with nausea and vomiting about two days prior to admission. In the ED she was noted to have leukocytosis, hyperbilirubinemia, elevated lipase. MRCP revealed pancreatic and peripancreatic edema with compression of the distal CBD as well as gallstones. Ultrasound revealed gallstones in the neck of the gallbladder with pericholecystic fluid and wall thickening. She underwent emergent ERCP last night with stent placement. The cystic duct was patent. This morning, she states she has some improvement in abdominal pain. She is hemodynamically stable. WBC and lactic acid have improved. LFTs remain elevated. Review of Systems Constitutional: COMPLAINS OF: Chills, DENIES: Fever Eyes: DENIES: Eye inflammation, Eye pain Respiratory: DENIES: Cough, Wheezing Cardiovascular: DENIES: Chest pain, Palpitations Gastrointestinal: COMPLAINS OF: Abdominal pain, Nausea, Vomiting Integumentary: DENIES: Pruritus, Rash Neurologic: DENIES: Localized weakness, Paresthesias Past Family Social History Past Medical History Breast cancer s/p bilateral mastectomy HTN Past Surgical History Bilateral mastectomy Hysterectomy Reported Medications Reported Meds & Active Scripts Active Reported Letrozole 2.5 Mg Tab 1 Tab PO DAILY Lisinopril-Hctz 20-25 Mg Tab 1 Tab PO DAILY Allergies: Coded Allergies: No Known Allergies (Verified , 02/18/15) Active Ordered Medications Current Medications Medications (Trade) Dose Ordered Sig/Zonia Route Start Time Stop Time Status Last Admin Labetalol HCl 20 mg 20 mg Q2H PRN IV PUSH 03/04/16 18:15 (NS 1000 ml Inj) 1,000 ml @ 150 mls/hr Q6H40M IV 03/04/16 18:07 03/04/16 18:07 Pantoprazole Sodium 40 mg 40 mg DAILY IV 03/04/16 18:15 03/04/16 18:54 Potassium Chloride 100 ml @ 50 mls/hr Q2H PRN IV 03/04/16 18:15 (KCl 20 Meq Premix Inj) 100 ml @ 50 mls/hr Q2H PRN IV 03/04/16 18:15 Potassium Chloride 40 meq 40 meq UNSCH PRN PO/TUBE 03/04/16 18:15 Potassium Chloride 100 ml @ 25 mls/hr UNSCH PRN IV 03/04/16 18:15 Potassium Chloride 100 ml @ 50 mls/hr Q2H PRN IV 03/04/16 18:15 (Magnesium Sulfate Inj/NS Inj) 100 ml @ 50 mls/hr UNSCH PRN IV 03/04/16 18:15 Magnesium Oxide 800 mg 800 mg UNSCH PRN PO 03/04/16 18:15 (Magnesium Sulfate Inj/NS Inj) 100 ml @ 50 mls/hr UNSCH PRN IV 03/04/16 18:15 Potassium Phosphate 2000 mg 2,000 mg Q4H PRN PO 03/04/16 18:15 (Sodium Phosphate Inj/NS 250 ml Inj) 250 ml @ 42 mls/hr UNSCH PRN IV 03/04/16 18:15 (KCl 40 Meq/30 ml Liq) 40 meq UNSCH PRN PO/TUBE 03/04/16 18:15 Potassium Phosphate 2000 mg 2,000 mg UNSCH PRN PO/TUBE 03/04/16 18:15 (Potassium Phosphate Inj/NS 250 ml Inj) 260 ml @ 42 mls/hr UNSCH PRN IV 03/04/16 18:15 (Dilaudid Pf Inj) 1 mg Q3H PRN IV 03/04/16 20:30 03/05/16 01:18 (Apresoline Inj) 10 mg Q1HR PRN IV PUSH 03/05/16 07:00 (Trandate Inj) 10 mg Q1HR PRN IV PUSH 03/05/16 06:45 (Nitroglycerin 2% Oint) 2 inch Q6HR PRN TOPICAL 03/05/16 06:45 (D50w (Vial) Inj) 25 ml UNSCH PRN IV PUSH 03/05/16 07:00 (Glucagon Inj) 1 mg UNSCH PRN OTHER 03/05/16 07:00 (Slaughters 5-325 Mg) 1 tab Q4H PRN PO 03/05/16 07:00 (NS Flush) 2 ml UNSCH PRN IV FLUSH 03/05/16 07:00 (NS Flush) 2 ml BID IV FLUSH 03/05/16 09:00 (Tylenol) 650 mg Q6H PRN PO 03/05/16 07:00 (Zofran Inj) 4 mg Q6H PRN IV 03/05/16 07:00 (Colace) 100 mg BID PO 03/05/16 09:00 (Senokot) 17.2 mg Q12H PRN PO 03/05/16 07:00 Miscellaneous Information 1 Q361D XX 03/05/16 07:00 (Chlorhexidine 2% Cloth) 3 pack Taper DAILY@04 TOP 03/06/16 04:00 03/02/17 03:59 (Chlorhexidine 2% Cloth) 3 pack UNSCH PRN TOP 03/05/16 07:00 Heparin Sodium (Porcine) 5000 units 5,000 units Q8H SQ 03/06/16 08:00 (Zosyn 4.5 Gm Premix) 100 ml @ 200 mls/hr Q8H IV 03/05/16 12:00 Family History Noncontributory Social History Denies ETOH, tobacco, or drug use. Physical Exam Vital Signs Vital Signs Date Time Temp Pulse Resp B/P Pulse Ox O2 Delivery O2 Flow Rate FiO2 03/05/16 09:12 99 Nasal Cannula 2.00 03/05/16 06:00 97 03/05/16 04:00 96 03/05/16 04:00 98.6 80 14 151/70 99 03/05/16 02:00 94 03/05/16 01:48 18 03/05/16 00:00 98.4 85 24 133/81 100 03/04/16 20:00 100 Nasal Cannula 4.00 03/04/16 20:00 98.0 80 24 207/87 100 03/04/16 20:00 96 03/04/16 17:30 70 14 204/90 96 Room Air 03/04/16 16:49 95 Nasal Cannula 2.00 03/04/16 16:27 67 26 190/86 97 Room Air 03/04/16 16:10 97.8 80 20 157/79 98 Room Air Physical Exam GENERAL: Awake and alert. Cooperative. Appears in some pain. HEAD: Normocephalic. Atraumatic. EYES: Pupils equal round and reactive to light bilaterally. ? mild scleral icterus. NECK: Trachea midline. CHEST: Lungs clear to auscultation bilaterally with no wheezing or rhonchi. No respiratory distress. CARDIOVASCULAR: Regular rate and rhythm. ABDOMEN: Well healed lower midline incision. Mild distention. Diffuse ttp, worse in bilateral lower abdomen and RUQ. EXTREMITIES: No cyanosis or edema. SKIN: Warm, dry, nonjaundiced. Laboratory Laboratory Tests Test 03/04/16 03/04/16 03/04/16 03/04/16 16:38 16:44 16:50 20:00 Blood Gas Puncture Site RT RADIAL Blood Gas Patient Temperature 98.6 Blood Gas HCO3 23 Blood Gas Base Excess -1.1 Blood Gas Oxygen Saturation 90 Arterial Blood pH 7.42 Arterial Blood Partial 35 Pressure CO2 Arterial Blood Partial 63 Pressure O2 Arterial Blood Oxygen Content 17.9 Arterial Blood 1.8 Carboxyhemoglobin Arterial Blood Methemoglobin 1.9 Blood Gas Hemoglobin 14.2 Blood Gas Inspired Oxygen 21 Urine Color DARK-BROWN Urine Turbidity HAZY Urine pH 5.5 Urine Specific [place] 1.025 Urine Protein 30 Urine Glucose (UA) TRACE Urine Ketones NEG Urine Occult Blood SMALL Urine Nitrite NEG Urine Bilirubin MOD Urine Urobilinogen 8.0 Urine Leukocyte Esterase NEG Urine RBC 2 Urine WBC 33 Urine Squamous Epithelial 1 Cells Urine Bacteria RARE Urine Hyaline Casts 7 Urine Granular Casts 1 Urine Mucus MOD Microscopic Urinalysis Comment CULTURE INDICATED White Blood Count 16.8 Red Blood Count 5.09 Hemoglobin 14.5 Hematocrit 43.3 Mean Corpuscular Volume 85.1 Mean Corpuscular Hemoglobin 28.5 Mean Corpuscular Hemoglobin 33.5 Concent Red Cell Distribution Width 13.9 Platelet Count 246 Mean Platelet Volume 9.2 Neutrophils (%) (Auto) 89.8 Lymphocytes (%) (Auto) 2.7 Monocytes (%) (Auto) 7.3 Eosinophils (%) (Auto) 0.0 Basophils (%) (Auto) 0.2 Neutrophils # (Auto) 15.1 Lymphocytes # (Auto) 0.4 Monocytes # (Auto) 1.2 Eosinophils # (Auto) 0.0 Basophils # (Auto) 0.0 CBC Comment DIFF FINAL Differential Comment Prothrombin Time 12.0 Prothromb Time International 1.1 Ratio Activated Partial 24.3 Thromboplast Time Sodium Level 138 Potassium Level 3.1 Chloride Level 100 Carbon Dioxide Level 25.4 Anion Gap 13 Blood Urea Nitrogen 14 Creatinine 1.20 Random Glucose 207 Lactic Acid Level 4.5 Calcium Level 10.5 Total Bilirubin 4.0 Direct Bilirubin 2.9 Aspartate Amino Transf 472 (AST/SGOT) Alanine Aminotransferase 378 (ALT/SGPT) Alkaline Phosphatase 154 Troponin I LESS THAN 0.02 Total Protein 8.5 Albumin 3.7 Triglycerides Level 117 Cholesterol Level 222 LDL Cholesterol 134 HDL Cholesterol 64.2 Cholesterol/HDL Ratio 3.45 Lipase 7635 Nasal Screen MRSA (PCR) NEGATIVE Test 03/05/16 03:38 White Blood Count 9.7 Red Blood Count 4.32 Hemoglobin 12.3 Hematocrit 37.4 Mean Corpuscular Volume 86.5 Mean Corpuscular Hemoglobin 28.5 Mean Corpuscular Hemoglobin 33.0 Concent Red Cell Distribution Width 14.3 Platelet Count 191 Mean Platelet Volume 8.5 Neutrophils (%) (Auto) 83.4 Lymphocytes (%) (Auto) 6.9 Monocytes (%) (Auto) 9.3 Eosinophils (%) (Auto) 0.0 Basophils (%) (Auto) 0.4 Neutrophils # (Auto) 8.1 Lymphocytes # (Auto) 0.7 Monocytes # (Auto) 0.9 Eosinophils # (Auto) 0.0 Basophils # (Auto) 0.0 CBC Comment DIFF FINAL Differential Comment Sodium Level 142 Potassium Level 4.9 Chloride Level 110 Carbon Dioxide Level 23.8 Anion Gap 8 Blood Urea Nitrogen 14 Creatinine 1.00 Estimat Glomerular Filtration 67 Rate Random Glucose 226 Lactic Acid Level 2.2 Calcium Level 8.6 Total Bilirubin 5.3 Aspartate Amino Transf 355 (AST/SGOT) Alanine Aminotransferase 292 (ALT/SGPT) Alkaline Phosphatase 120 Total Protein 6.3 Albumin 2.7 Lipase 6764 Date/Time Procedure Status Source Growth 03/04/16 16:55 Aerobic Blood Culture Received Blood Peripheral Pending 03/04/16 16:55 Anaerobic Blood Culture Received Blood Peripheral Pending 03/04/16 16:44 Urine Culture Received Urine Clean Catch Pending Result Diagram: 03/05/16 0338 03/05/16 0338 Imaging Last Impressions GI Procedure 03/05/16 0000 Signed Impressions: Service Date/Time: Friday, March 04, 2016 23:02 - CONCLUSION: ERCP as above. Vidal Ye MD Chest X-Ray 03/04/16 1626 Signed Impressions: Service Date/Time: Friday, March 04, 2016 16:52 - CONCLUSION: 1. Mild cardiomegaly. 2. No acute focal pulmonary infiltrate or pulmonary vascular congestion. 3. Mild elevation of right hemidiaphragm. Odilon Butler MD Gall Bladder Ultrasound 03/04/16 0000 Signed Impressions: Service Date/Time: Friday, March 04, 2016 19:36 - CONCLUSION: 1. Thick-walled gallbladder with some pericholecystic fluid and multiple gallstones in the region of the neck. The findings are suggestive of acute cholecystitis. Clinical correlation is recommended. 2. Fatty liver. 3. Minimal ascites within Polanco's pouch. 4. Poor visualization of the pancreas due to shadowing bowel gas. Odilon Butler MD Cholangiopancreatography MRI 03/04/16 0000 Signed Impressions: Service Date/Time: Friday, March 04, 2016 18:24 - CONCLUSION: 1. Extensive edema throughout the retroperitoneum and pancreas. No abscess or pseudocyst. 2. Tiny layering gallstones within the gallbladder. No discrete common bile duct stone. There is tapering of the common bile duct within the pancreatic head felt to be secondary to the edema within the pancreas. No discrete mass or choledocholithiasis. No intrahepatic or extrahepatic ductal dilatation. Maxwell Hsu Jr., MD Assessment and Plan Assessment and Plan 66 yo F with gallstone pancreatitis, biliary obstruction secondary to choledocholithiasis vs pancreatic head edema, cholecystitis. S/p ERCP with stent placement. Stable. I would recommend continued medical management of cholangitis and pancreatitis with IVF, NPO status, antibiotics. Continue to follow LFTs. Regarding cholecystitis, would continue to treat with antibiotics and avoid any invasive procedure at this point. She will certainly benefit from cholecystectomy in the future. I will continue to follow. Brian Ceballos MD Mar 05, 2016 09:39
--- NOTE | 2016-03-05 11:22 | HHI.GIFU ---
GI Follow-up Note Consult Follow-up Subjective: Patient laying in bed comfortably, feeling better. Nausea, no vomiting. Abdominal pain better. US, mrcp, labs , notes reviewed Objective: PHYSICAL EXAMINATION: Vitals signs stable No fever Vital Signs Date Time Temp Pulse Resp B/P Pulse Ox O2 Delivery O2 Flow Rate FiO2 03/05/16 10:00 112 03/05/16 09:12 99 Nasal Cannula 2.00 03/05/16 08:00 100 03/05/16 08:00 99.3 100 23 137/68 100 03/05/16 07:00 100 Nasal Cannula 3.00 03/05/16 06:00 97 03/05/16 04:00 96 03/05/16 04:00 98.6 80 14 151/70 99 HEENT: Pupils round and reactive to light; normocephalic; atraumatic; no jaundice. Throat is clear. NECK: Neck is supple, no JVD, no lymphadenopathy. CHEST: Chest is clear to auscultation and percussion. CARDIAC: Regular rate and rhythm with no murmur gallop or rubs. ABDOMEN: Soft, distended, epigastric tenderness ; no hepatosplenomegaly; bowel sounds are present in all four quadrants. EXTREMITIES: No clubbing, cyanosis, or edema. SKIN: Normal; no rash; no jaundice. 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 Available Data (labs, X- Rays, Procedues) : Laboratory Tests Test 03/04/16 03/04/16 03/04/16 03/04/16 16:38 16:44 16:50 20:00 Blood Gas Puncture Site RT RADIAL Blood Gas Patient Temperature 98.6 Blood Gas HCO3 23 mmol/L Blood Gas Base Excess -1.1 mmol/L Blood Gas Oxygen Saturation 90 % Arterial Blood pH 7.42 Arterial Blood Partial 35 mmHg Pressure CO2 Arterial Blood Partial 63 mmHG Pressure O2 Arterial Blood Oxygen Content 17.9 Vol % Arterial Blood 1.8 % Carboxyhemoglobin Arterial Blood Methemoglobin 1.9 % Blood Gas Hemoglobin 14.2 G/DL Blood Gas Inspired Oxygen 21 % Urine Color DARK-BROWN Urine Turbidity HAZY Urine pH 5.5 Urine Specific [place] 1.025 Urine Protein 30 mg/dL Urine Glucose (UA) TRACE mg/dL Urine Ketones NEG mg/dL Urine Occult Blood SMALL Urine Nitrite NEG Urine Bilirubin MOD Urine Urobilinogen 8.0 MG/DL Urine Leukocyte Esterase NEG Urine RBC 2 /hpf Urine WBC 33 /hpf Urine Squamous Epithelial 1 /hpf Cells Urine Bacteria RARE /hpf Urine Hyaline Casts 7 /lpf Urine Granular Casts 1 /lpf Urine Mucus MOD /lpf Microscopic Urinalysis Comment CULTURE INDICATED White Blood Count 16.8 TH/MM3 Red Blood Count 5.09 MIL/MM3 Hemoglobin 14.5 GM/DL Hematocrit 43.3 % Mean Corpuscular Volume 85.1 FL Mean Corpuscular Hemoglobin 28.5 PG Mean Corpuscular Hemoglobin 33.5 % Concent Red Cell Distribution Width 13.9 % Platelet Count 246 TH/MM3 Mean Platelet Volume 9.2 FL Neutrophils (%) (Auto) 89.8 % Lymphocytes (%) (Auto) 2.7 % Monocytes (%) (Auto) 7.3 % Eosinophils (%) (Auto) 0.0 % Basophils (%) (Auto) 0.2 % Neutrophils # (Auto) 15.1 TH/MM3 Lymphocytes # (Auto) 0.4 TH/MM3 Monocytes # (Auto) 1.2 TH/MM3 Eosinophils # (Auto) 0.0 TH/MM3 Basophils # (Auto) 0.0 TH/MM3 CBC Comment DIFF FINAL Differential Comment Prothrombin Time 12.0 SEC Prothromb Time International 1.1 RATIO Ratio Activated Partial 24.3 SEC Thromboplast Time Sodium Level 138 MEQ/L Potassium Level 3.1 MEQ/L Chloride Level 100 MEQ/L Carbon Dioxide Level 25.4 MEQ/L Anion Gap 13 MEQ/L Blood Urea Nitrogen 14 MG/DL Creatinine 1.20 MG/DL Random Glucose 207 MG/DL Lactic Acid Level 4.5 mmol/L Calcium Level 10.5 MG/DL Total Bilirubin 4.0 MG/DL Direct Bilirubin 2.9 MG/DL Aspartate Amino Transf 472 U/L (AST/SGOT) Alanine Aminotransferase 378 U/L (ALT/SGPT) Alkaline Phosphatase 154 U/L Troponin I LESS THAN 0.02 NG/ML Total Protein 8.5 GM/DL Albumin 3.7 GM/DL Triglycerides Level 117 MG/DL Cholesterol Level 222 MG/DL LDL Cholesterol 134 MG/DL HDL Cholesterol 64.2 MG/DL Cholesterol/HDL Ratio 3.45 RATIO Lipase 7635 U/L Nasal Screen MRSA (PCR) NEGATIVE Test 03/05/16 03:38 White Blood Count 9.7 TH/MM3 Red Blood Count 4.32 MIL/MM3 Hemoglobin 12.3 GM/DL Hematocrit 37.4 % Mean Corpuscular Volume 86.5 FL Mean Corpuscular Hemoglobin 28.5 PG Mean Corpuscular Hemoglobin 33.0 % Concent Red Cell Distribution Width 14.3 % Platelet Count 191 TH/MM3 Mean Platelet Volume 8.5 FL Neutrophils (%) (Auto) 83.4 % Lymphocytes (%) (Auto) 6.9 % Monocytes (%) (Auto) 9.3 % Eosinophils (%) (Auto) 0.0 % Basophils (%) (Auto) 0.4 % Neutrophils # (Auto) 8.1 TH/MM3 Lymphocytes # (Auto) 0.7 TH/MM3 Monocytes # (Auto) 0.9 TH/MM3 Eosinophils # (Auto) 0.0 TH/MM3 Basophils # (Auto) 0.0 TH/MM3 CBC Comment DIFF FINAL Differential Comment Sodium Level 142 MEQ/L Potassium Level 4.9 MEQ/L Chloride Level 110 MEQ/L Carbon Dioxide Level 23.8 MEQ/L Anion Gap 8 MEQ/L Blood Urea Nitrogen 14 MG/DL Creatinine 1.00 MG/DL Estimat Glomerular Filtration 67 ML/MIN Rate Random Glucose 226 MG/DL Lactic Acid Level 2.2 mmol/L Calcium Level 8.6 MG/DL Total Bilirubin 5.3 MG/DL Aspartate Amino Transf 355 U/L (AST/SGOT) Alanine Aminotransferase 292 U/L (ALT/SGPT) Alkaline Phosphatase 120 U/L Total Protein 6.3 GM/DL Albumin 2.7 GM/DL Lipase 6764 U/L ASSESSMENT/PLAN: acute pancreatitis secondary gallstones-improving acute cholecystitis obstructive jaundice secondary compressed CBD secondary peripancreatic edema s/ p ercp with stent placement, no indication of cholangitis during ERCP Recommendations iv fluids iv antibiotics clear liquid diet cholecystectomy timing as per surgery ercp with stent removal in 6-8 weeks antiemetics It was a pleasure seeing Swapna Dalton. Thank you for this consult. Entered by: Cara Hilario MD Mar 05, 2016 11:22
[2016-03-05] MEDS: INSULIN NovoLIN REGULAR SUPPLEMENTAL SCALE SQ SCH ×3 (12:20→20:53)
[2016-03-05] MEDS: PIPERACIL-TAZO 4.5 GM PREMIX 100 ML IV SCH ×2 (12:20→19:35)
[2016-03-05] MEDS ORDERED: PROPOFOL 200 MG/20 ML AMP IV ONE (14:24)
[2016-03-05] MEDS ORDERED: SINCALIDE 5 MCG/5 ML VIAL IV ONE (14:24)
[2016-03-05] MEDS ORDERED: PHENYLEPH/NS 1000 MCG/10 ML SYR IV ONE (14:24)
[2016-03-05] MEDS: hydrALAZINE HCL 20 MG/ML VIAL IV PUSH PRN (18:47)
[2016-03-05 21:35] LABS: HEMATOCRIT 36.1 % (35.0-46.0); MEAN CELL VOLUME 87.5 FL (80.0-100.0); MEAN CORPUSCULAR HEMOGLOBIN 29.1 PG (27.0-34.0); MEAN CORPUSCULAR HGB CONC 33.3 % (32.0-36.0); PLATELET COUNT 172 TH/MM3 (150-450); RED BLOOD COUNT 4.13 MIL/MM3 (4.00-5.30); RED CELL DISTRIBUTION WIDTH 14.5 % (11.6-17.2); WHITE BLOOD COUNT 14.5 TH/MM3 (4.0-11.0)
[2016-03-05 21:40] LABS: HEMO FLAGS AUTO DIFF
--- NOTE | 2016-03-05 21:43 | EKG ---
Date Performed: 03/04/2016 Time Performed: 16:43:09 PTAGE: 66 years EKG: sinus arrhythmia INTRAVENTRICULAR CONDUCTION DELAY ABNORMAL ECG PREVIOUS TRACING : 05/28/1995 08.29 DOCTOR: Thai Todd Interpretating Date/Time 03/05/2016 21:34:11
[2016-03-05 21:57] LABS: BICARBONATE 21.1 MEQ/L (21.0-32.0)
[2016-03-05 22:02] LABS: POTASSIUM 4.3 MEQ/L (3.5-5.1)
[2016-03-05 22:11] LABS: BANDS 25 % (0-6); NEUTROPHIL # MANUAL DIFF 13.8 TH/MM3 (1.8-7.7); PLATELET ESTIMATE SMEAR NORMAL (NORMAL); PLATELET MORPHOLOGY NORMAL (NORMAL); POLYS (SEG NEUTROPHILS) 70 % (16-70); SCAN/DIFF FINAL DIFF MANUAL; WBC DIFF SAMPLE 100
[2016-03-06] VITALS (14 sets, daily range): BP systolic 107–145; BP diastolic 59–82; PULSE 100–136; RESP 20–32; TEMP 97–99.7; O2SAT 93–100
[2016-03-06] MEDS ORDERED: LACTATED RINGER'S 1000 ML INJ 1,000 ML IV ONE ×2 (01:00→08:30)
[2016-03-06] MEDS: LACTATED RINGER'S 1000 ML INJ 1,000 ML IV SCH ×5 (01:25→23:26)
[2016-03-06 03:52] LABS: HEMATOCRIT 34.7 % (35.0-46.0); MEAN CELL VOLUME 86.9 FL (80.0-100.0); MEAN CORPUSCULAR HEMOGLOBIN 29.1 PG (27.0-34.0); MEAN CORPUSCULAR HGB CONC 33.5 % (32.0-36.0); PLATELET COUNT 168 TH/MM3 (150-450); RED CELL DISTRIBUTION WIDTH 14.5 % (11.6-17.2); WHITE BLOOD COUNT 16.9 TH/MM3 (4.0-11.0)
[2016-03-06] MEDS: CHLORHEXIDINE GLUCONATE 2 % 1 PACK (2 CLOTHS) TOP SCH (04:00)
[2016-03-06 04:19] LABS: HEMO FLAGS AUTO DIFF
[2016-03-06 04:25] LABS: ALKALINE PHOSPHATASE 104 U/L (45-117); ALT (GPT) 197 U/L (10-53); CREATINE KINASE 211 U/L (26-192); TOTAL BILIRUBIN ADULT 4.9 MG/DL (0.2-1.0)
[2016-03-06 04:28] LABS: ANION GAP 10 MEQ/L (5-15); AST (GOT) 180 U/L (15-37); CHLORIDE 109 MEQ/L (98-107); GLOMERULAR FILTRATION RATE 36 ML/MIN (>89); MAGNESIUM 1.5 MG/DL (1.5-2.5); SODIUM (NA) 140 MEQ/L (136-145)
[2016-03-06 04:43] LABS: CKMB 2.7 NG/ML (0.5-3.6)
[2016-03-06 04:44] LABS: BLOOD UREA NITROGEN 32 MG/DL (7-18)
[2016-03-06] MEDS: PIPERACIL-TAZO 4.5 GM PREMIX 100 ML IV SCH (04:49)
[2016-03-06 04:50] LABS: BANDS 13 % (0-6); METAMYELOCYTES 1 % (0-1); NEUTROPHIL # MANUAL DIFF 15.9 TH/MM3 (1.8-7.7); POLYS (SEG NEUTROPHILS) 80 % (16-70); WBC DIFF SAMPLE 100
[2016-03-06 04:51] LABS: OVALOCYTES 1+ (NORMAL); PLATELET ESTIMATE SMEAR LOW (NORMAL); PLATELET MORPHOLOGY NORMAL (NORMAL); SCAN/DIFF FINAL DIFF MANUAL
[2016-03-06] MEDS: INSULIN NovoLIN REGULAR SUPPLEMENTAL SCALE SQ SCH ×4 (06:20→20:42)
[2016-03-06] MEDS: PANTOPRAZOLE SODIUM 40 MG VIAL IV SCH (07:59)
[2016-03-06] MEDS: HEPARIN SODIUM - SQ 10,000 UNITS/ML VIAL SQ SCH ×3 (07:59→23:27)
[2016-03-06] MEDS: SODIUM CHLORIDE 0.9% FLUSH 5 ML FLUSH IV FLUSH SCH ×2 (08:00→20:42)
[2016-03-06] MEDS: HYDROmorphone HCL PF 1 MG/ML VIAL IV PRN (08:00)
[2016-03-06] MEDS: DOCUSATE SODIUM 100 MG CAP PO SCH ×2 (08:00→20:41)
[2016-03-06] MEDS: POTASSIUM PHOSPHATE MONOBASIC 500 MG TAB PO PRN ×2 (08:01→12:00)
--- NOTE | 2016-03-06 08:21 | HHI.PR ---
Subjective Subjective Notes She states her abdomen is sore but overall the pain feels better. UOP overnight low and she received on bolus. Objective Vitals/I&O Vital Signs Date Time Temp Pulse Resp B/P Pulse Ox O2 Delivery O2 Flow Rate FiO2 03/06/16 07:42 95 Nasal Cannula 2.00 03/06/16 06:00 123 03/06/16 04:00 99.7 32 130/62 Labs Laboratory Tests Test 03/05/16 03/06/16 21:03 03:40 White Blood Count 14.5 16.9 Red Blood Count 4.13 4.00 Hemoglobin 12.0 11.6 Hematocrit 36.1 34.7 Mean Corpuscular Volume 87.5 86.9 Mean Corpuscular Hemoglobin 29.1 29.1 Mean Corpuscular Hemoglobin 33.3 33.5 Concent Red Cell Distribution Width 14.5 14.5 Platelet Count 172 168 Mean Platelet Volume 9.1 9.1 Neutrophils (%) (Auto) Lymphocytes (%) (Auto) Monocytes (%) (Auto) Eosinophils (%) (Auto) Basophils (%) (Auto) Neutrophils # (Auto) Lymphocytes # (Auto) Monocytes # (Auto) Eosinophils # (Auto) Basophils # (Auto) CBC Comment AUTO DIFF AUTO DIFF Differential Total Cells 100 100 Counted Neutrophils % (Manual) 70 80 Band Neutrophils % 25 13 Lymphocytes % 3 1 Monocytes % 2 5 Neutrophils # (Manual) 13.8 15.9 Differential Comment FINAL DIFF FINAL DIFF MANUAL MANUAL Platelet Estimate NORMAL LOW Platelet Morphology Comment NORMAL NORMAL Red Cell Morphology Comment NORMAL Sodium Level 142 140 Potassium Level 4.3 4.0 Chloride Level 110 109 Carbon Dioxide Level 21.1 21.0 Anion Gap 11 10 Blood Urea Nitrogen 25 32 Creatinine 1.66 1.74 Estimat Glomerular Filtration 38 36 Rate Random Glucose 293 235 Lactic Acid Level 4.0 2.4 Calcium Level 8.6 9.0 Metamyelocytes 1 Ovalocytes 1+ Phosphorus Level 1.8 Magnesium Level 1.5 Total Bilirubin 4.9 Aspartate Amino Transf 180 (AST/SGOT) Alanine Aminotransferase 197 (ALT/SGPT) Alkaline Phosphatase 104 Total Creatine Kinase 211 Creatine Kinase MB 2.7 Creatine Kinase MB % 1.3 Total Protein 6.1 Albumin 2.4 Lipase 7155 Date/Time Procedure Status Source Growth 03/04/16 16:55 Aerobic Blood Culture - Preliminary Resulted Blood Peripheral NO GROWTH IN 1 DAY 03/04/16 16:55 Anaerobic Blood Culture - Preliminary Resulted Blood Peripheral NO GROWTH IN 1 DAY 03/04/16 16:44 Urine Culture - Preliminary Resulted Urine Clean Catch NO GROWTH IN 24 HOURS. Radiology Last Impressions GI Procedure 03/05/16 0000 Signed Impressions: Service Date/Time: Friday, March 04, 2016 23:02 - CONCLUSION: ERCP as above. Vidal Ye MD Chest X-Ray 03/04/16 1626 Signed Impressions: Service Date/Time: Friday, March 04, 2016 16:52 - CONCLUSION: 1. Mild cardiomegaly. 2. No acute focal pulmonary infiltrate or pulmonary vascular congestion. 3. Mild elevation of right hemidiaphragm. Odilon Butler MD Gall Bladder Ultrasound 03/04/16 0000 Signed Impressions: Service Date/Time: Friday, March 04, 2016 19:36 - CONCLUSION: 1. Thick-walled gallbladder with some pericholecystic fluid and multiple gallstones in the region of the neck. The findings are suggestive of acute cholecystitis. Clinical correlation is recommended. 2. Fatty liver. 3. Minimal ascites within Polanco's pouch. 4. Poor visualization of the pancreas due to shadowing bowel gas. Odilon Butler MD Cholangiopancreatography MRI 03/04/16 0000 Signed Impressions: Service Date/Time: Friday, March 04, 2016 18:24 - CONCLUSION: 1. Extensive edema throughout the retroperitoneum and pancreas. No abscess or pseudocyst. 2. Tiny layering gallstones within the gallbladder. No discrete common bile duct stone. There is tapering of the common bile duct within the pancreatic head felt to be secondary to the edema within the pancreas. No discrete mass or choledocholithiasis. No intrahepatic or extrahepatic ductal dilatation. Maxwell Hsu Jr., MD Narrative Exam Awake and alert, no distress Lungs: 2L NC CV: sinus tachycardia 120s Abd: upper abdomen severe ttp, no guarding. Lower abdomen mild ttp. : UOP marginal A/P Assessment and Plan 66 yo F with biliary obstruction secondary to pancreatic head edema s/p ERCP with stent, gallstone pancreatitis, acute cholecystitis. WBC is increasing. LFTs, lipase remain elevated. UOP low. Cont IV antibiotics. Fluids Will consider naomie tube as WBC is increasing and also still has obstructive jaundice. I will d/w GI. Brian Ceballos MD Mar 06, 2016 08:21
[2016-03-06] MEDS: PIPERACIL-TAZO 2.25 GM PREMIX 50 ML IV SCH ×3 (13:02→23:26)
[2016-03-06] MEDS: LABETALOL HCL 100 MG/20 ML VIAL IV PUSH PRN (15:16)
--- NOTE | 2016-03-06 15:53 | HHI.PR ---
Subjective Remarks Pt reports continued abd pain and no appetite She has not been eating the clear liquids Tmax 99.7 today No vomiting. Objective Vitals Vital Signs Date Time Temp Pulse Resp B/P Pulse Ox O2 Delivery O2 Flow Rate FiO2 03/06/16 14:00 127 03/06/16 12:00 136 03/06/16 12:00 99.2 136 24 116/82 93 03/06/16 10:00 133 03/06/16 08:39 22 03/06/16 08:00 127 03/06/16 08:00 99.4 126 22 138/63 95 03/06/16 07:42 95 Nasal Cannula 2.00 03/06/16 07:00 95 Nasal Cannula 2.00 03/06/16 06:00 123 03/06/16 04:00 123 03/06/16 04:00 99.7 132 32 130/62 96 03/06/16 02:00 120 03/06/16 00:00 97.0 124 29 107/65 97 03/06/16 00:00 124 03/05/16 22:00 121 03/05/16 20:32 93 Nasal Cannula 2.00 03/05/16 20:00 132 03/05/16 20:00 99.7 132 27 93/54 93 03/05/16 19:00 93 Nasal Cannula 3.00 03/05/16 16:00 99.9 116 24 160/77 95 03/05/16 16:00 116 03/05/16 03/05/16 03/06/16 14:59 22:59 06:59 Intake Total 1567 ml 1107 ml 1880 ml Output Total 475 ml 261 ml 139 ml Balance 1092 ml 846 ml 1741 ml Intake Oral 360 ml 60 ml IV Total 1207 ml 1107 ml 1820 ml Output Urine Total 475 ml 261 ml 139 ml # Bowel Movements 0 0 Result Diagram: 03/06/16 0340 03/06/16 0340 Other Results Laboratory Tests Test 03/04/16 03/04/16 03/04/16 03/04/16 16:38 16:44 16:50 20:00 Blood Gas Puncture Site RT RADIAL Blood Gas Patient Temperature 98.6 Blood Gas HCO3 23 mmol/L Blood Gas Base Excess -1.1 mmol/L Blood Gas Oxygen Saturation 90 % Arterial Blood pH 7.42 Arterial Blood Partial 35 mmHg Pressure CO2 Arterial Blood Partial 63 mmHG Pressure O2 Arterial Blood Oxygen Content 17.9 Vol % Arterial Blood 1.8 % Carboxyhemoglobin Arterial Blood Methemoglobin 1.9 % Blood Gas Hemoglobin 14.2 G/DL Blood Gas Inspired Oxygen 21 % Urine Color DARK-BROWN Urine Turbidity HAZY Urine pH 5.5 Urine Specific [place] 1.025 Urine Protein 30 mg/dL Urine Glucose (UA) TRACE mg/dL Urine Ketones NEG mg/dL Urine Occult Blood SMALL Urine Nitrite NEG Urine Bilirubin MOD Urine Urobilinogen 8.0 MG/DL Urine Leukocyte Esterase NEG Urine RBC 2 /hpf Urine WBC 33 /hpf Urine Squamous Epithelial 1 /hpf Cells Urine Bacteria RARE /hpf Urine Hyaline Casts 7 /lpf Urine Granular Casts 1 /lpf Urine Mucus MOD /lpf Microscopic Urinalysis Comment CULTURE INDICATED White Blood Count 16.8 TH/MM3 Red Blood Count 5.09 MIL/MM3 Hemoglobin 14.5 GM/DL Hematocrit 43.3 % Mean Corpuscular Volume 85.1 FL Mean Corpuscular Hemoglobin 28.5 PG Mean Corpuscular Hemoglobin 33.5 % Concent Red Cell Distribution Width 13.9 % Platelet Count 246 TH/MM3 Mean Platelet Volume 9.2 FL Neutrophils (%) (Auto) 89.8 % Lymphocytes (%) (Auto) 2.7 % Monocytes (%) (Auto) 7.3 % Eosinophils (%) (Auto) 0.0 % Basophils (%) (Auto) 0.2 % Neutrophils # (Auto) 15.1 TH/MM3 Lymphocytes # (Auto) 0.4 TH/MM3 Monocytes # (Auto) 1.2 TH/MM3 Eosinophils # (Auto) 0.0 TH/MM3 Basophils # (Auto) 0.0 TH/MM3 CBC Comment DIFF FINAL Differential Comment Prothrombin Time 12.0 SEC Prothromb Time International 1.1 RATIO Ratio Activated Partial 24.3 SEC Thromboplast Time Sodium Level 138 MEQ/L Potassium Level 3.1 MEQ/L Chloride Level 100 MEQ/L Carbon Dioxide Level 25.4 MEQ/L Anion Gap 13 MEQ/L Blood Urea Nitrogen 14 MG/DL Creatinine 1.20 MG/DL Random Glucose 207 MG/DL Lactic Acid Level 4.5 mmol/L Calcium Level 10.5 MG/DL Total Bilirubin 4.0 MG/DL Direct Bilirubin 2.9 MG/DL Aspartate Amino Transf 472 U/L (AST/SGOT) Alanine Aminotransferase 378 U/L (ALT/SGPT) Alkaline Phosphatase 154 U/L Troponin I LESS THAN 0.02 NG/ML Total Protein 8.5 GM/DL Albumin 3.7 GM/DL Triglycerides Level 117 MG/DL Cholesterol Level 222 MG/DL LDL Cholesterol 134 MG/DL HDL Cholesterol 64.2 MG/DL Cholesterol/HDL Ratio 3.45 RATIO Lipase 7635 U/L Nasal Screen MRSA (PCR) NEGATIVE Test 03/05/16 03/05/16 03/06/16 03:38 21:03 03:40 White Blood Count 9.7 TH/MM3 14.5 TH/MM3 16.9 TH/MM3 Red Blood Count 4.32 MIL/MM3 4.13 MIL/MM3 4.00 MIL/MM3 Hemoglobin 12.3 GM/DL 12.0 GM/DL 11.6 GM/DL Hematocrit 37.4 % 36.1 % 34.7 % Mean Corpuscular Volume 86.5 FL 87.5 FL 86.9 FL Mean Corpuscular Hemoglobin 28.5 PG 29.1 PG 29.1 PG Mean Corpuscular Hemoglobin 33.0 % 33.3 % 33.5 % Concent Red Cell Distribution Width 14.3 % 14.5 % 14.5 % Platelet Count 191 TH/MM3 172 TH/MM3 168 TH/MM3 Mean Platelet Volume 8.5 FL 9.1 FL 9.1 FL Neutrophils (%) (Auto) 83.4 % % % Lymphocytes (%) (Auto) 6.9 % % % Monocytes (%) (Auto) 9.3 % % % Eosinophils (%) (Auto) 0.0 % % % Basophils (%) (Auto) 0.4 % % % Neutrophils # (Auto) 8.1 TH/MM3 TH/MM3 TH/MM3 Lymphocytes # (Auto) 0.7 TH/MM3 TH/MM3 TH/MM3 Monocytes # (Auto) 0.9 TH/MM3 TH/MM3 TH/MM3 Eosinophils # (Auto) 0.0 TH/MM3 TH/MM3 TH/MM3 Basophils # (Auto) 0.0 TH/MM3 TH/MM3 TH/MM3 CBC Comment DIFF FINAL AUTO DIFF AUTO DIFF Differential Comment FINAL DIFF FINAL DIFF MANUAL MANUAL Sodium Level 142 MEQ/L 142 MEQ/L 140 MEQ/L Potassium Level 4.9 MEQ/L 4.3 MEQ/L 4.0 MEQ/L Chloride Level 110 MEQ/L 110 MEQ/L 109 MEQ/L Carbon Dioxide Level 23.8 MEQ/L 21.1 MEQ/L 21.0 MEQ/L Anion Gap 8 MEQ/L 11 MEQ/L 10 MEQ/L Blood Urea Nitrogen 14 MG/DL 25 MG/DL 32 MG/DL Creatinine 1.00 MG/DL 1.66 MG/DL 1.74 MG/DL Estimat Glomerular Filtration 67 ML/MIN 38 ML/MIN 36 ML/MIN Rate Random Glucose 226 MG/DL 293 MG/DL 235 MG/DL Lactic Acid Level 2.2 mmol/L 4.0 mmol/L 2.4 mmol/L Calcium Level 8.6 MG/DL 8.6 MG/DL 9.0 MG/DL Total Bilirubin 5.3 MG/DL 4.9 MG/DL Aspartate Amino Transf 355 U/L 180 U/L (AST/SGOT) Alanine Aminotransferase 292 U/L 197 U/L (ALT/SGPT) Alkaline Phosphatase 120 U/L 104 U/L Total Protein 6.3 GM/DL 6.1 GM/DL Albumin 2.7 GM/DL 2.4 GM/DL Lipase 6764 U/L 7155 U/L Differential Total Cells 100 100 Counted Neutrophils % (Manual) 70 % 80 % Band Neutrophils % 25 % 13 % Lymphocytes % 3 % 1 % Monocytes % 2 % 5 % Neutrophils # (Manual) 13.8 TH/MM3 15.9 TH/MM3 Platelet Estimate NORMAL LOW Platelet Morphology Comment NORMAL NORMAL Red Cell Morphology Comment NORMAL Metamyelocytes 1 % Ovalocytes 1+ Phosphorus Level 1.8 MG/DL Magnesium Level 1.5 MG/DL Total Creatine Kinase 211 U/L Creatine Kinase MB 2.7 NG/ML Creatine Kinase MB % 1.3 % Imaging Last Impressions GI Procedure 03/05/16 0000 Signed Impressions: Service Date/Time: Friday, March 04, 2016 23:02 - CONCLUSION: ERCP as above. Vidal Ye MD Chest X-Ray 03/04/16 1626 Signed Impressions: Service Date/Time: Friday, March 04, 2016 16:52 - CONCLUSION: 1. Mild cardiomegaly. 2. No acute focal pulmonary infiltrate or pulmonary vascular congestion. 3. Mild elevation of right hemidiaphragm. Odilon Butler MD Gall Bladder Ultrasound 03/04/16 0000 Signed Impressions: Service Date/Time: Friday, March 04, 2016 19:36 - CONCLUSION: 1. Thick-walled gallbladder with some pericholecystic fluid and multiple gallstones in the region of the neck. The findings are suggestive of acute cholecystitis. Clinical correlation is recommended. 2. Fatty liver. 3. Minimal ascites within Polanco's pouch. 4. Poor visualization of the pancreas due to shadowing bowel gas. Odilon Butler MD Cholangiopancreatography MRI 03/04/16 0000 Signed Impressions: Service Date/Time: Friday, March 04, 2016 18:24 - CONCLUSION: 1. Extensive edema throughout the retroperitoneum and pancreas. No abscess or pseudocyst. 2. Tiny layering gallstones within the gallbladder. No discrete common bile duct stone. There is tapering of the common bile duct within the pancreatic head felt to be secondary to the edema within the pancreas. No discrete mass or choledocholithiasis. No intrahepatic or extrahepatic ductal dilatation. Maxwell Hsu Jr., MD Objective Remarks General: NAD, AAOx3 Chest: CTA bilaterally Cardiac: Tachy, regular Abd: Ext: A/P Problem List: (1) Severe sepsis with acute organ dysfunction Status: Acute Plan: - Pt admitted with sudden onset of abd pain, nausea/vomiting on 03/04/16 - Labs at admission noted elevated WBC count 16.8 - LFTs were elevated at TBili 4.0, AST 472, ALT 378, AlkPhos 154 with Lipase of 7635 - Also noted to have an elevated Lactic acid of 4.5 and was admitted to ICU - MRCP (03/04) --> Extensive edema throughout the retroperitoneum and pancreas. No abscess or pseudocyst. Tiny layering gallstones within the gallbladder. No discrete common bile duct stone. There is tapering of the common bile duct within the pancreatic head felt to be secondary to the edema within the pancreas. No discrete mass or choledocholithiasis. No intrahepatic or extrahepatic ductal dilatation. - GB US (03/04) --> Thick-walled gallbladder with some pericholecystic fluid and multiple gallstones in the region of the neck. The findings are suggestive of acute cholecystitis. Fatty liver. Minimal ascites within Polanco's pouch. - Pt was seen by GI and underwent ERCP with stent placement in the CBD on - General Surgery is following and pt may require cholecystostomy tube - LFTs are slightly improved today compared to labs on 03/05 with TBili 4.9, AST 180, ALT 197, AlkPhos 104 - Lipase remains elevated at 7155 - Pts renal function is worsening and UOP is decreased today - Pt with very low grade temps with Tmax 99.7 today. - WBC count increased today to 16.9 with elevated bands - Cont. Zosyn - Cont. IVF - Supportive care - DVT prophylaxis (2) Cholangitis Status: Acute Plan: - See above (3) HTN (hypertension) Status: Chronic Plan: - BP at admission was quite elevated - Her home medications are being held due to renal dysfunction - Currently BP is low/normal - PRN BP meds (4) Renal insufficiency Status: Acute Plan: - See above (5) Leukocytosis Status: Acute Plan: - See above Assessment and Plan Patient examined. Assessment and plan formulated with Zita Plummer PA-C. I agree with the above. Zita Plummer Mar 06, 2016 15:52 Yandel Stewart DO Mar 10, 2016 00:01
--- NOTE | 2016-03-06 16:43 | HHI.GIFU ---
Subjective Remarks Feeling hungry but still complaining of abdominal pain, Objective Vitals I&O Vital Signs Date Time Temp Pulse Resp B/P Pulse Ox O2 Delivery O2 Flow Rate FiO2 03/06/16 14:00 127 03/06/16 12:00 136 03/06/16 12:00 99.2 136 24 116/82 93 03/06/16 10:00 133 03/06/16 08:39 22 03/06/16 08:00 127 03/06/16 08:00 99.4 126 22 138/63 95 03/06/16 07:42 95 Nasal Cannula 2.00 03/06/16 07:00 95 Nasal Cannula 2.00 03/06/16 06:00 123 03/06/16 04:00 123 03/06/16 04:00 99.7 132 32 130/62 96 03/06/16 02:00 120 03/06/16 00:00 97.0 124 29 107/65 97 03/06/16 00:00 124 03/05/16 22:00 121 03/05/16 20:32 93 Nasal Cannula 2.00 03/05/16 20:00 132 03/05/16 20:00 99.7 132 27 93/54 93 03/05/16 19:00 93 Nasal Cannula 3.00 I/O 03/05/16 03/05/16 03/05/16 03/06/16 03/06/16 03/06/16 06:59 14:59 22:59 06:59 14:59 22:59 Intake Total 2000 ml 1567 ml 1107 ml 1880 ml 1854 ml 113 ml Output Total 200 ml 475 ml 261 ml 139 ml 261 ml 45 ml Balance 1800 ml 1092 ml 846 ml 1741 ml 1593 ml 68 ml Intake Oral 360 ml 60 ml 200 ml IV Total 2000 ml 1207 ml 1107 ml 1820 ml 1654 ml 113 ml Output Urine Total 200 ml 475 ml 261 ml 139 ml 261 ml 45 ml # Bowel Movements 0 0 0 0 Laboratory Laboratory Tests Test 03/05/16 03/06/16 21:03 03:40 White Blood Count 14.5 16.9 Red Blood Count 4.13 4.00 Hemoglobin 12.0 11.6 Hematocrit 36.1 34.7 Mean Corpuscular Volume 87.5 86.9 Mean Corpuscular Hemoglobin 29.1 29.1 Mean Corpuscular Hemoglobin 33.3 33.5 Concent Red Cell Distribution Width 14.5 14.5 Platelet Count 172 168 Mean Platelet Volume 9.1 9.1 Neutrophils (%) (Auto) Lymphocytes (%) (Auto) Monocytes (%) (Auto) Eosinophils (%) (Auto) Basophils (%) (Auto) Neutrophils # (Auto) Lymphocytes # (Auto) Monocytes # (Auto) Eosinophils # (Auto) Basophils # (Auto) CBC Comment AUTO DIFF AUTO DIFF Differential Total Cells 100 100 Counted Neutrophils % (Manual) 70 80 Band Neutrophils % 25 13 Lymphocytes % 3 1 Monocytes % 2 5 Neutrophils # (Manual) 13.8 15.9 Differential Comment FINAL DIFF FINAL DIFF MANUAL MANUAL Platelet Estimate NORMAL LOW Platelet Morphology Comment NORMAL NORMAL Red Cell Morphology Comment NORMAL Sodium Level 142 140 Potassium Level 4.3 4.0 Chloride Level 110 109 Carbon Dioxide Level 21.1 21.0 Anion Gap 11 10 Blood Urea Nitrogen 25 32 Creatinine 1.66 1.74 Estimat Glomerular Filtration 38 36 Rate Random Glucose 293 235 Lactic Acid Level 4.0 2.4 Calcium Level 8.6 9.0 Metamyelocytes 1 Ovalocytes 1+ Phosphorus Level 1.8 Magnesium Level 1.5 Total Bilirubin 4.9 Aspartate Amino Transf 180 (AST/SGOT) Alanine Aminotransferase 197 (ALT/SGPT) Alkaline Phosphatase 104 Total Creatine Kinase 211 Creatine Kinase MB 2.7 Creatine Kinase MB % 1.3 Total Protein 6.1 Albumin 2.4 Lipase 7155 Date/Time Procedure Status Source Growth 03/04/16 16:55 Aerobic Blood Culture - Preliminary Resulted Blood Peripheral NO GROWTH IN 2 DAYS 03/04/16 16:55 Anaerobic Blood Culture - Preliminary Resulted Blood Peripheral NO GROWTH IN 2 DAYS 03/04/16 16:44 Urine Culture - Final Complete Urine Clean Catch NO GROWTH IN 48 HOURS. Physical Exam NECK: Neck is supple, no JVD, no lymphadenopathy. CHEST: Chest is clear to auscultation and percussion. CARDIAC: Regular rate and rhythm with no murmur gallop or rubs. ABDOMEN: Tender in all four quadrants. EXTREMITIES: No clubbing, cyanosis, or edema. SKIN: Normal; no rash; no jaundice. 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
[2016-03-07] VITALS (14 sets, daily range): BP systolic 123–152; BP diastolic 60–79; PULSE 118–128; RESP 24–35; TEMP 98.7–100.7; O2SAT 91–97
[2016-03-07] MEDS: ACETAMINOPHEN/HYDROcodone 325 MG/5 MG TAB PO PRN ×3 (04:04→16:33)
[2016-03-07] MEDS: CHLORHEXIDINE GLUCONATE 2 % 1 PACK (2 CLOTHS) TOP SCH (04:05)
[2016-03-07 04:43] LABS: TOTAL BILIRUBIN ADULT 3.2 MG/DL (0.2-1.0)
[2016-03-07 04:52] LABS: BICARBONATE 20.2 MEQ/L (21.0-32.0); INDIRECT BILIRUBIN 1.3 MG/DL (0.0-0.8); MAGNESIUM 1.7 MG/DL (1.5-2.5); POTASSIUM 4.2 MEQ/L (3.5-5.1)
[2016-03-07 04:57] LABS: AUTOMATED NEUTROPHIL # 14.9 TH/MM3 (1.8-7.7); BASOPHIL % 0.2 % (0.0-2.0); EOSINOPHIL % 0.2 % (0.0-4.0); HEMATOCRIT 35.8 % (35.0-46.0); LYMPH % 5.5 % (9.0-44.0); MEAN CELL VOLUME 87.9 FL (80.0-100.0); MEAN CORPUSCULAR HEMOGLOBIN 29.5 PG (27.0-34.0); MEAN CORPUSCULAR HGB CONC 33.6 % (32.0-36.0); NEUT % 86.1 % (16.0-70.0); PLATELET COUNT 161 TH/MM3 (150-450); RED BLOOD COUNT 4.08 MIL/MM3 (4.00-5.30); WHITE BLOOD COUNT 17.3 TH/MM3 (4.0-11.0)
[2016-03-07] MEDS: LACTATED RINGER'S 1000 ML INJ 1,000 ML IV SCH ×4 (05:27→23:14)
[2016-03-07] MEDS: PIPERACIL-TAZO 2.25 GM PREMIX 50 ML IV SCH ×4 (06:13→23:35)
[2016-03-07] MEDS: INSULIN NovoLIN REGULAR SUPPLEMENTAL SCALE SQ SCH ×4 (06:22→21:06)
[2016-03-07 06:43] LABS: HEMO FLAGS AUTO DIFF
[2016-03-07 06:46] LABS: BANDS 21 % (0-6); METAMYELOCYTES 1 % (0-1); NEUTROPHIL # MANUAL DIFF 14.9 TH/MM3 (1.8-7.7); POLYS (SEG NEUTROPHILS) 64 % (16-70); WBC DIFF SAMPLE 100
[2016-03-07 06:47] LABS: ACANTHOCYTES OCC (NORMAL); PLATELET ESTIMATE SMEAR NORMAL (NORMAL); PLATELET MORPHOLOGY NORMAL (NORMAL); SCAN/DIFF FINAL DIFF MANUAL
[2016-03-07] MEDS: HEPARIN SODIUM - SQ 10,000 UNITS/ML VIAL SQ SCH ×4 (07:55→23:35)
[2016-03-07] MEDS: DOCUSATE SODIUM 100 MG CAP PO SCH ×3 (07:55→21:06)
--- NOTE | 2016-03-07 09:56 | HHI.PR ---
Subjective Subjective Notes Her pain is improving. Her granddaughter is at bedside. Tm 100.4 this am. Objective Vitals/I&O Vital Signs Date Time Temp Pulse Resp B/P Pulse Ox O2 Delivery O2 Flow Rate FiO2 03/07/16 06:00 128 03/07/16 04:00 100.4 30 152/70 97 03/06/16 19:41 Nasal Cannula 03/06/16 19:00 2.00 Labs Laboratory Tests Test 03/07/16 03:40 White Blood Count 17.3 Red Blood Count 4.08 Hemoglobin 12.0 Hematocrit 35.8 Mean Corpuscular Volume 87.9 Mean Corpuscular Hemoglobin 29.5 Mean Corpuscular Hemoglobin 33.6 Concent Red Cell Distribution Width 15.0 Platelet Count 161 Mean Platelet Volume 10.0 Neutrophils (%) (Auto) 86.1 Lymphocytes (%) (Auto) 5.5 Monocytes (%) (Auto) 8.0 Eosinophils (%) (Auto) 0.2 Basophils (%) (Auto) 0.2 Neutrophils # (Auto) 14.9 Lymphocytes # (Auto) 1.0 Monocytes # (Auto) 1.4 Eosinophils # (Auto) 0.0 Basophils # (Auto) 0.0 CBC Comment AUTO DIFF Differential Total Cells 100 Counted Neutrophils % (Manual) 64 Band Neutrophils % 21 Lymphocytes % 3 Monocytes % 11 Neutrophils # (Manual) 14.9 Metamyelocytes 1 Differential Comment FINAL DIFF MANUAL Platelet Estimate NORMAL Platelet Morphology Comment NORMAL Acanthocytes OCC Sodium Level 139 Potassium Level 4.2 Chloride Level 109 Carbon Dioxide Level 20.2 Anion Gap 10 Blood Urea Nitrogen 36 Creatinine 1.69 Estimat Glomerular Filtration 37 Rate Random Glucose 215 Calcium Level 9.3 Magnesium Level 1.7 Total Bilirubin 3.2 Direct Bilirubin 1.9 Indirect Bilirubin 1.3 Aspartate Amino Transf 106 (AST/SGOT) Alanine Aminotransferase 133 (ALT/SGPT) Alkaline Phosphatase 107 Total Protein 6.2 Albumin 2.3 Date/Time Procedure Status Source Growth 03/04/16 16:55 Aerobic Blood Culture - Preliminary Resulted Blood Peripheral NO GROWTH IN 2 DAYS 03/04/16 16:55 Anaerobic Blood Culture - Preliminary Resulted Blood Peripheral NO GROWTH IN 2 DAYS 03/04/16 16:44 Urine Culture - Final Complete Urine Clean Catch NO GROWTH IN 48 HOURS. Radiology Last Impressions GI Procedure 03/05/16 0000 Signed Impressions: Service Date/Time: Friday, March 04, 2016 23:02 - CONCLUSION: ERCP as above. Vidal Ye MD Chest X-Ray 03/04/16 1626 Signed Impressions: Service Date/Time: Friday, March 04, 2016 16:52 - CONCLUSION: 1. Mild cardiomegaly. 2. No acute focal pulmonary infiltrate or pulmonary vascular congestion. 3. Mild elevation of right hemidiaphragm. Odilon Butler MD Gall Bladder Ultrasound 03/04/16 0000 Signed Impressions: Service Date/Time: Friday, March 04, 2016 19:36 - CONCLUSION: 1. Thick-walled gallbladder with some pericholecystic fluid and multiple gallstones in the region of the neck. The findings are suggestive of acute cholecystitis. Clinical correlation is recommended. 2. Fatty liver. 3. Minimal ascites within Polanco's pouch. 4. Poor visualization of the pancreas due to shadowing bowel gas. Odilon Butler MD Cholangiopancreatography MRI 03/04/16 0000 Signed Impressions: Service Date/Time: Friday, March 04, 2016 18:24 - CONCLUSION: 1. Extensive edema throughout the retroperitoneum and pancreas. No abscess or pseudocyst. 2. Tiny layering gallstones within the gallbladder. No discrete common bile duct stone. There is tapering of the common bile duct within the pancreatic head felt to be secondary to the edema within the pancreas. No discrete mass or choledocholithiasis. No intrahepatic or extrahepatic ductal dilatation. Maxwell Hsu Jr., MD Narrative Exam Awake and alert, no distress CV: sinus tachycardia 120s Abd: upper abdomen mod ttp worst in epigastrium, no guarding. Lower abdomen nontender. : UOP adequate A/P Assessment and Plan 66 yo F with biliary obstruction secondary to pancreatic head edema s/p ERCP with stent, gallstone pancreatitis, acute cholecystitis. Symptomatically improving. WBC still elevated, low grade temps. LFTs improving. Plan: - Cont to monitor. If continued temps/leukocytosis may benefit from CT a/p to eval evolving pancreatitis. RUQ is less tender so I doubt cholecystitis is the cause but could also repeat u/s. Will hold off on imaging now. She needs continued resuscitation. Brian Ceballos MD Mar 07, 2016 09:56
[2016-03-07] MEDS: SODIUM CHLORIDE 0.9% FLUSH 5 ML FLUSH IV FLUSH SCH ×2 (10:09→21:07)
[2016-03-07] MEDS: PANTOPRAZOLE SODIUM 40 MG VIAL IV SCH (10:09)
--- NOTE | 2016-03-07 11:23 | HHI.GIFU ---
Subjective Remarks Still complaining of abdominal pain but improving, tolerating clears well. Objective Vitals I&O Vital Signs Date Time Temp Pulse Resp B/P Pulse Ox O2 Delivery O2 Flow Rate FiO2 03/07/16 10:24 91 Nasal Cannula 2.00 03/07/16 06:00 128 03/07/16 04:00 124 03/07/16 04:00 100.4 124 30 152/70 97 03/07/16 02:00 123 03/07/16 00:00 126 03/07/16 00:00 100.4 126 30 143/60 96 03/06/16 22:00 126 03/06/16 20:00 122 03/06/16 20:00 99.2 122 29 145/73 95 03/06/16 19:41 100 Nasal Cannula 03/06/16 19:00 97 Nasal Cannula 2.00 03/06/16 18:00 122 03/06/16 16:00 100 03/06/16 16:00 99.3 100 20 124/59 95 03/06/16 14:00 127 03/06/16 12:00 136 03/06/16 12:00 99.2 136 24 116/82 93 I/O 03/06/16 03/06/16 03/06/16 03/07/16 03/07/16 03/07/16 06:59 14:59 22:59 06:59 14:59 22:59 Intake Total 1880 ml 1854 ml 811 ml 1143 ml 123 ml Output Total 139 ml 261 ml 367 ml 525 ml 30 ml Balance 1741 ml 1593 ml 444 ml 618 ml 93 ml Intake Oral 60 ml 200 ml IV Total 1820 ml 1654 ml 811 ml 1143 ml 123 ml Output Urine Total 139 ml 261 ml 367 ml 525 ml 30 ml Stool Total 0 ml # Bowel Movements 0 Laboratory Laboratory Tests Test 03/07/16 03:40 White Blood Count 17.3 Red Blood Count 4.08 Hemoglobin 12.0 Hematocrit 35.8 Mean Corpuscular Volume 87.9 Mean Corpuscular Hemoglobin 29.5 Mean Corpuscular Hemoglobin 33.6 Concent Red Cell Distribution Width 15.0 Platelet Count 161 Mean Platelet Volume 10.0 Neutrophils (%) (Auto) 86.1 Lymphocytes (%) (Auto) 5.5 Monocytes (%) (Auto) 8.0 Eosinophils (%) (Auto) 0.2 Basophils (%) (Auto) 0.2 Neutrophils # (Auto) 14.9 Lymphocytes # (Auto) 1.0 Monocytes # (Auto) 1.4 Eosinophils # (Auto) 0.0 Basophils # (Auto) 0.0 CBC Comment AUTO DIFF Differential Total Cells 100 Counted Neutrophils % (Manual) 64 Band Neutrophils % 21 Lymphocytes % 3 Monocytes % 11 Neutrophils # (Manual) 14.9 Metamyelocytes 1 Differential Comment FINAL DIFF MANUAL Platelet Estimate NORMAL Platelet Morphology Comment NORMAL Acanthocytes OCC Sodium Level 139 Potassium Level 4.2 Chloride Level 109 Carbon Dioxide Level 20.2 Anion Gap 10 Blood Urea Nitrogen 36 Creatinine 1.69 Estimat Glomerular Filtration 37 Rate Random Glucose 215 Calcium Level 9.3 Magnesium Level 1.7 Total Bilirubin 3.2 Direct Bilirubin 1.9 Indirect Bilirubin 1.3 Aspartate Amino Transf 106 (AST/SGOT) Alanine Aminotransferase 133 (ALT/SGPT) Alkaline Phosphatase 107 Total Protein 6.2 Albumin 2.3 Date/Time Procedure Status Source Growth 03/04/16 16:55 Aerobic Blood Culture - Preliminary Resulted Blood Peripheral NO GROWTH IN 3 DAYS 03/04/16 16:55 Anaerobic Blood Culture - Preliminary Resulted Blood Peripheral NO GROWTH IN 3 DAYS 03/04/16 16:44 Urine Culture - Final Complete Urine Clean Catch NO GROWTH IN 48 HOURS. Physical Exam NECK: Neck is supple, no JVD, no lymphadenopathy. CHEST: Chest is clear to auscultation and percussion. CARDIAC: Regular rate and rhythm with no murmur gallop or rubs. ABDOMEN: Tender in all four quadrants. EXTREMITIES: No clubbing, cyanosis, or edema. SKIN: Normal; no rash; no jaundice. 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
--- NOTE | 2016-03-07 15:58 | HHI.PR ---
Subjective Remarks c/o continued abdominal pain. but, pt is tolerating PO intake. no n/v Objective Vitals Vital Signs Date Time Temp Pulse Resp B/P Pulse Ox O2 Delivery O2 Flow Rate FiO2 03/07/16 10:24 91 Nasal Cannula 2.00 03/07/16 06:00 128 03/07/16 04:00 124 03/07/16 04:00 100.4 124 30 152/70 97 03/07/16 02:00 123 03/07/16 00:00 126 03/07/16 00:00 100.4 126 30 143/60 96 03/06/16 22:00 126 03/06/16 20:00 122 03/06/16 20:00 99.2 122 29 145/73 95 03/06/16 19:41 100 Nasal Cannula 03/06/16 19:00 97 Nasal Cannula 2.00 03/06/16 18:00 122 03/06/16 16:00 100 03/06/16 16:00 99.3 100 20 124/59 95 03/06/16 03/06/16 03/07/16 14:59 22:59 06:59 Intake Total 1854 ml 811 ml 1143 ml Output Total 261 ml 367 ml 525 ml Balance 1593 ml 444 ml 618 ml Intake Oral 200 ml IV Total 1654 ml 811 ml 1143 ml Output Urine Total 261 ml 367 ml 525 ml Stool Total 0 ml # Bowel Movements 0 Result Diagram: 03/07/16 0340 03/07/16 0340 Imaging Last Impressions GI Procedure 03/05/16 0000 Signed Impressions: Service Date/Time: Friday, March 04, 2016 23:02 - CONCLUSION: ERCP as above. Vidal Ye MD Chest X-Ray 03/04/16 1626 Signed Impressions: Service Date/Time: Friday, March 04, 2016 16:52 - CONCLUSION: 1. Mild cardiomegaly. 2. No acute focal pulmonary infiltrate or pulmonary vascular congestion. 3. Mild elevation of right hemidiaphragm. Odilon Butler MD Gall Bladder Ultrasound 03/04/16 0000 Signed Impressions: Service Date/Time: Friday, March 04, 2016 19:36 - CONCLUSION: 1. Thick-walled gallbladder with some pericholecystic fluid and multiple gallstones in the region of the neck. The findings are suggestive of acute cholecystitis. Clinical correlation is recommended. 2. Fatty liver. 3. Minimal ascites within Polanco's pouch. 4. Poor visualization of the pancreas due to shadowing bowel gas. Odilon Butler MD Cholangiopancreatography MRI 03/04/16 0000 Signed Impressions: Service Date/Time: Friday, March 04, 2016 18:24 - CONCLUSION: 1. Extensive edema throughout the retroperitoneum and pancreas. No abscess or pseudocyst. 2. Tiny layering gallstones within the gallbladder. No discrete common bile duct stone. There is tapering of the common bile duct within the pancreatic head felt to be secondary to the edema within the pancreas. No discrete mass or choledocholithiasis. No intrahepatic or extrahepatic ductal dilatation. 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 No abscess or pseudocyst. Tiny layering gallstones within the gallbladder. No discrete common bile duct stone. There is tapering of the common bile duct within the pancreatic head felt to be secondary to the edema within the pancreas. No discrete mass or choledocholithiasis. No intrahepatic or extrahepatic ductal dilatation. - GB US (03/04) --> Thick-walled gallbladder with some pericholecystic fluid and multiple gallstones in the region of the neck. The findings are suggestive of acute cholecystitis. Fatty liver. Minimal ascites within Polanco's pouch. - Pt was seen by GI and underwent ERCP with stent placement in the CBD on - General Surgery is following and pt may require cholecystostomy tube - LFTs continue to slowly improve - Lipase 7155 (03/07/16) - Pts renal function is worsening and UOP is decreased today - Pt with low grade temps with Tmax 100.4F today. - WBC count increased today to 17.3 (03/07/16) with elevated bands - Cont. Zosyn - Cont. IVF - Supportive care - DVT prophylaxis (2) Cholangitis Status: Acute Plan: - See above (3) HTN (hypertension) Status: Chronic Plan: - BP at admission was quite elevated - Her home medications are being held due to renal dysfunction - Currently BP is low/normal - PRN BP meds (4) Renal insufficiency Status: Acute Plan: - See above (5) Leukocytosis Status: Acute Plan: - See above Yandel Stewart DO Mar 07, 2016 15:58
--- NOTE | 2016-03-07 16:22 | RADRPT ---
EXAM DATE/TIME: 03/07/2016 16:02 [facility] COMPARISON: CHEST SINGLE AP, March 04, 2016, 16:52. INDICATIONS : Fever with lower chest pain MEDICAL HISTORY : Hypertension SURGICAL HISTORY : Mastectomy, right. Hysterectomy ENCOUNTER: Subsequent ACUITY: 2 days PAIN SCORE: 2/10 LOCATION: Bilateral chest FINDINGS: The heart is enlarged. Minimal patchiness is noted within the left lung base consistent with possibl e atelectasis and/or infiltrate. Clinical correlation is recommended. The right lung is clear. CONCLUSION: 1. Minimal patchiness within the left lung base consistent with atelectasis and/or infiltrate. Clinic al correlation is recommended. 2. Cardiomegaly. Odilon Butler MD on March 07, 2016 at 16:15 Board Certified Radiologist. This report was verified electronically.
[2016-03-07 17:15] LABS: BACTERIA, URINE RARE /hpf; BLOOD, URINE MOD (NEG); COMMENT (UR) CULT NOT INDICATED; CULTURE IF INDICATED CULT NOT INDICATED; GLUCOSE,URINE 150 mg/dL (NEG); KETONE, URINE NEG (NEG); MUCUS URINE FEW /lpf (OCC); NITRITE,URINE NEG (NEG); PH, URINE 5.5 (5.0-8.5); SQUAMOUS EPITHELIAL CELL URINE <1 /hpf (0-5); URINE COLOR YELLOW (YELLW/STRAW)
[2016-03-08] VITALS (11 sets, daily range): BP systolic 123–166; BP diastolic 65–88; PULSE 85–129; RESP 26–32; TEMP 98.2–100.7; O2SAT 94–96
[2016-03-08 00:20] LABS: MAGNESIUM 1.7 MG/DL (1.5-2.5); POTASSIUM 3.9 MEQ/L (3.5-5.1)
[2016-03-08] MEDS ORDERED: MAGNESIUM SULFATE 1 GM PREMIX 100 ML IV ONE (00:30)
[2016-03-08] MEDS: ACETAMINOPHEN/HYDROcodone 325 MG/5 MG TAB PO PRN (03:45)
[2016-03-08] MEDS: CHLORHEXIDINE GLUCONATE 2 % 1 PACK (2 CLOTHS) TOP SCH ×2 (04:01→22:00)
[2016-03-08 04:45] LABS: AUTOMATED NEUTROPHIL # 12.1 TH/MM3 (1.8-7.7); BASOPHIL % 0.2 % (0.0-2.0); EOSINOPHIL % 0.1 % (0.0-4.0); HEMATOCRIT 31.2 % (35.0-46.0); LYMPH % 6.6 % (9.0-44.0); MEAN CELL VOLUME 86.2 FL (80.0-100.0); MEAN CORPUSCULAR HEMOGLOBIN 29.2 PG (27.0-34.0); MEAN CORPUSCULAR HGB CONC 33.9 % (32.0-36.0); MONO % 11.7 % (0.0-8.0); NEUT % 81.4 % (16.0-70.0); PLATELET COUNT 190 TH/MM3 (150-450); RED BLOOD COUNT 3.62 MIL/MM3 (4.00-5.30); RED CELL DISTRIBUTION WIDTH 15.2 % (11.6-17.2); WHITE BLOOD COUNT 14.9 TH/MM3 (4.0-11.0)
[2016-03-08 04:53] LABS: HEMO FLAGS AUTO DIFF
[2016-03-08 05:16] LABS: ALKALINE PHOSPHATASE 87 U/L (45-117); ALT (GPT) 82 U/L (10-53); TOTAL BILIRUBIN ADULT 2.1 MG/DL (0.2-1.0)
[2016-03-08] MEDS: LACTATED RINGER'S 1000 ML INJ 1,000 ML IV SCH ×4 (05:19→20:47)
[2016-03-08 05:20] LABS: ANION GAP 11 MEQ/L (5-15); AST (GOT) 41 U/L (15-37); BICARBONATE 22.1 MEQ/L (21.0-32.0); BLOOD UREA NITROGEN 33 MG/DL (7-18); CHLORIDE 106 MEQ/L (98-107); GLOMERULAR FILTRATION RATE 46 ML/MIN (>89); POTASSIUM 3.8 MEQ/L (3.5-5.1); SODIUM (NA) 139 MEQ/L (136-145)
[2016-03-08 05:26] LABS: SCAN/DIFF AUTO DIFF CONFIRMED
[2016-03-08] MEDS: INSULIN NovoLIN REGULAR SUPPLEMENTAL SCALE SQ SCH ×4 (06:46→20:48)
[2016-03-08] MEDS: PIPERACIL-TAZO 2.25 GM PREMIX 50 ML IV SCH ×4 (06:46→23:48)
--- NOTE | 2016-03-08 08:35 | HHI.PR ---
Subjective Subjective Notes She had short runs of v tach last night per nursing staff and cardiology has been consulted. She complains of shortness of breath and inability to move IS much. Abdominal pain continues to improve. She tolerated clears without nausea. Objective Vitals/I&O Vital Signs Date Time Temp Pulse Resp B/P Pulse Ox O2 Delivery O2 Flow Rate FiO2 03/08/16 06:00 128 03/08/16 04:00 100.5 28 152/88 95 03/07/16 20:39 Nasal Cannula 2.00 Labs Laboratory Tests Test 03/07/16 03/07/16 03/08/16 16:40 23:53 03:30 Urine Color YELLOW Urine Turbidity HAZY Urine pH 5.5 Urine Specific [place] 1.020 Urine Protein 30 Urine Glucose (UA) 150 Urine Ketones NEG Urine Occult Blood MOD Urine Nitrite NEG Urine Bilirubin SMALL Urine Urobilinogen LESS THAN 2.0 Urine Leukocyte Esterase NEG Urine RBC 11 Urine WBC 2 Urine Squamous Epithelial <1 Cells Urine Bacteria RARE Urine Mucus FEW Microscopic Urinalysis Comment CULT NOT INDICATED Potassium Level 3.9 3.8 Magnesium Level 1.7 Troponin I LESS THAN 0.02 White Blood Count 14.9 Red Blood Count 3.62 Hemoglobin 10.6 Hematocrit 31.2 Mean Corpuscular Volume 86.2 Mean Corpuscular Hemoglobin 29.2 Mean Corpuscular Hemoglobin 33.9 Concent Red Cell Distribution Width 15.2 Platelet Count 190 Mean Platelet Volume 9.8 Neutrophils (%) (Auto) 81.4 Lymphocytes (%) (Auto) 6.6 Monocytes (%) (Auto) 11.7 Eosinophils (%) (Auto) 0.1 Basophils (%) (Auto) 0.2 Neutrophils # (Auto) 12.1 Lymphocytes # (Auto) 1.0 Monocytes # (Auto) 1.7 Eosinophils # (Auto) 0.0 Basophils # (Auto) 0.0 CBC Comment AUTO DIFF Differential Comment AUTO DIFF CONFIRMED Sodium Level 139 Chloride Level 106 Carbon Dioxide Level 22.1 Anion Gap 11 Blood Urea Nitrogen 33 Creatinine 1.39 Estimat Glomerular Filtration 46 Rate Random Glucose 277 Calcium Level 9.5 Total Bilirubin 2.1 Aspartate Amino Transf 41 (AST/SGOT) Alanine Aminotransferase 82 (ALT/SGPT) Alkaline Phosphatase 87 Total Protein 6.0 Albumin 2.0 Lipase 449 Date/Time Procedure Status Source Growth 03/07/16 17:15 Aerobic Blood Culture Received Blood Peripheral Pending 03/07/16 17:15 Anaerobic Blood Culture Received Blood Peripheral Pending 03/04/16 16:55 Aerobic Blood Culture - Preliminary Resulted Blood Peripheral NO GROWTH IN 3 DAYS 03/04/16 16:55 Anaerobic Blood Culture - Preliminary Resulted Blood Peripheral NO GROWTH IN 3 DAYS 03/04/16 16:44 Urine Culture - Final Complete Urine Clean Catch NO GROWTH IN 48 HOURS. Radiology Last Impressions GI Procedure 03/05/16 0000 Signed Impressions: Service Date/Time: Friday, March 04, 2016 23:02 - CONCLUSION: ERCP as above. Vidal Ye MD Chest X-Ray 03/04/16 1626 Signed Impressions: Service Date/Time: Friday, March 04, 2016 16:52 - CONCLUSION: 1. Mild cardiomegaly. 2. No acute focal pulmonary infiltrate or pulmonary vascular congestion. 3. Mild elevation of right hemidiaphragm. Odilon Butler MD Gall Bladder Ultrasound 03/04/16 0000 Signed Impressions: Service Date/Time: Friday, March 04, 2016 19:36 - CONCLUSION: 1. Thick-walled gallbladder with some pericholecystic fluid and multiple gallstones in the region of the neck. The findings are suggestive of acute cholecystitis. Clinical correlation is recommended. 2. Fatty liver. 3. Minimal ascites within Polanco's pouch. 4. Poor visualization of the pancreas due to shadowing bowel gas. Odilon Butler MD Cholangiopancreatography MRI 03/04/16 0000 Signed Impressions: Service Date/Time: Friday, March 04, 2016 18:24 - CONCLUSION: 1. Extensive edema throughout the retroperitoneum and pancreas. No abscess or pseudocyst. 2. Tiny layering gallstones within the gallbladder. No discrete common bile duct stone. There is tapering of the common bile duct within the pancreatic head felt to be secondary to the edema within the pancreas. No discrete mass or choledocholithiasis. No intrahepatic or extrahepatic ductal dilatation. Maxwell Hsu Jr., MD Narrative Exam Awake and alert, no distress Pulm: shallow breathing, moderate tachypnea CV: sinus tachycardia 120s Abd: mod ttp in epigastrium, no guarding. Lower abdomen nontender. : UOP adequate A/P Assessment and Plan 66 yo F with biliary obstruction secondary to pancreatic head edema s/p ERCP with stent, gallstone pancreatitis, acute cholecystitis. Abdomen seems to be improving, however she has persistent leukocytosis and has been having low grade temps. I will order a CT a/p to evaluate evolving pancreatitis. Cardiology is consulted regarding v tach. Brian Ceballos MD Mar 08, 2016 08:35
[2016-03-08] MEDS ORDERED: DIATRIZOATE MEGLUM/DIATRIZOATE SOD 9 ML CUP PO ONE (09:00)
--- NOTE | 2016-03-08 09:06 | MR ---
cc: QUINTON BOLAÑOS BEATRICE S. M.D. ZULFIQAR, HASSAN M.D. HARMAN, P.KENT MD DATE OF PROCEDURE March 04, 2016 PHYSICIAN Carl Maxwell MD INDICATIONS FOR PROCEDURE Cholangitis. Elevated liver function tests. Abdominal pain. PROCEDURE ERCP. OPERATIVE PROCEDURE After informed consent and explaining the risks of the procedure to the patient including bleeding, perforation, risk of pancreatitis, risk of failed procedure, Ms. Dalton was electively intubated and sedated with the help of Anesthesia. ERCP scope advanced to the ampulla. The pancreatic duct was easily cannulated. This was a very, very small pancreatic duct. After some maneuvering, the common bile duct was able to be cannulated. There appeared to be a long stricture in the distal common bile duct in the intrapancreatic portion of the pancreas. This could just be related to severe pancreatitis. The duct above that was normal. Intrahepatic ducts were normal. Large patent cystic duct with low takeoff. The common bile duct filled normally. No clear filling defects identified. An 8.5-Frency x 7-cm stent was left in place. Good drainage of bile was seen after stent placement. The patient appeared to tolerate the procedure well. There were no apparent immediate complications. There was no evidence of cholangitis. IMPRESSION 1. Stricture in the distal common bile duct. 2. Normal intrahepatic ducts. 3. Normal pancreatic duct. 4. Patent cystic duct. RECOMMENDATIONS 1. Post-ERCP protocol. 2. Continue antibiotics. 3. Clear liquid diet. 4. Dr. Fairchild will follow. MD DILLON Grey/AMINA /11:59 PM /8:55 AM
--- NOTE | 2016-03-08 09:36 | MB ---
cc: MEHRDAD URIOSTEGUI MD DATE OF CONSULTATION 03/08/2016 HISTORY This is a 66-year-old woman who was admitted to the hospital with nausea and vomiting and found to have acute cholelithiasis with resultant pancreatitis. She has undergone emergency ERCP with stent placement and has been slowly improving. She is now taking p.o. liquids and abdominal pain is much improved. No history of heart disease has been present. We have been asked to see her in that she had two runs of ventricular tachycardia last night. No shortness of breath, lightheadedness or dizziness has been present. As noted above, she has not had any prior history of heart disease. PAST MEDICAL HISTORY Significant only for - 1. Hypertension. 2. History of breast cancer which apparently is in remission. PAST SURGICAL HISTORY She has undergone mastectomy and hysterectomy in the past. ALLERGIES None. PHYSICAL EXAMINATION General: On physical exam now she is resting comfortably eating Jello. Vital Signs: Her blood pressure is 150/80, pulse is 110 and regular. Neck: There is no neck vein distension. Carotids are normal. Lungs: Clear. Cardiovascular: Exam reveals a regular rate and rhythm. No murmur is noted. There is no gallop. Abdomen: Obese; it is mildly tender to palpation. Bowel sounds are normal. Extremities: Reveal no edema. CHEST X-RAY Reveals evidence for heart failure. LABORATORY DATA Electrolytes are within normal limits. Troponin was 0.02. ASSESSMENT The patient has had a run of ventricular tachycardia, probably secondary to her acute illness. PLAN We will get an echocardiogram and I have started her on a small dose of metoprolol to help prevent further episodes. MD YEIMI Childs/AMINA /9:13 AM /9:29 AM
[2016-03-08] MEDS: PANTOPRAZOLE SODIUM 40 MG VIAL IV SCH (09:40)
[2016-03-08] MEDS: SODIUM CHLORIDE 0.9% FLUSH 5 ML FLUSH IV FLUSH SCH ×2 (09:40→23:49)
[2016-03-08] MEDS: HEPARIN SODIUM - SQ 10,000 UNITS/ML VIAL SQ SCH ×3 (09:40→23:47)
[2016-03-08] MEDS: METOPROLOL TARTRATE 50 MG TAB PO SCH ×2 (09:42→20:47)
[2016-03-08] MEDS: DOCUSATE SODIUM 100 MG CAP PO SCH ×2 (09:42→20:47)
--- NOTE | 2016-03-08 11:13 | HHI.GIFU ---
Subjective Remarks Patient is sitting up in chair, denies nausea, vomiting or abd pain. (Mary LouOtis) Objective Vitals I&O Vital Signs Date Time Temp Pulse Resp B/P Pulse Ox O2 Delivery O2 Flow Rate FiO2 03/08/16 06:00 128 03/08/16 04:00 126 03/08/16 04:00 100.5 126 28 152/88 95 03/08/16 02:00 124 03/08/16 00:00 100.7 116 30 158/76 94 03/08/16 00:00 116 03/07/16 22:00 128 03/07/16 20:39 94 Nasal Cannula 2.00 03/07/16 20:00 100.7 128 35 148/79 94 03/07/16 20:00 128 03/07/16 19:00 95 Nasal Cannula 2.00 03/07/16 18:00 128 03/07/16 16:00 98.7 127 29 140/66 94 03/07/16 16:00 127 03/07/16 14:00 119 03/07/16 12:00 122 03/07/16 12:00 100.0 122 26 123/71 93 I/O 03/07/16 03/07/16 03/07/16 03/08/16 03/08/16 03/08/16 07:00 15:00 23:00 07:00 15:00 23:00 Intake Total 1177 ml 1242 ml 1532 ml 371 ml Output Total 455 ml 595 ml 447 ml 395 ml Balance 722 ml 647 ml 1085 ml -24 ml Intake Oral 480 ml 840 ml IV Total 1177 ml 762 ml 692 ml 371 ml Output Urine Total 455 ml 595 ml 447 ml 395 ml # Bowel Movements 0 Laboratory Laboratory Tests Test 03/07/16 03/07/16 03/08/16 16:40 23:53 03:30 Urine Color YELLOW Urine Turbidity HAZY Urine pH 5.5 Urine Specific [place] 1.020 Urine Protein 30 Urine Glucose (UA) 150 Urine Ketones NEG Urine Occult Blood MOD Urine Nitrite NEG Urine Bilirubin SMALL Urine Urobilinogen LESS THAN 2.0 Urine Leukocyte Esterase NEG Urine RBC 11 Urine WBC 2 Urine Squamous Epithelial <1 Cells Urine Bacteria RARE Urine Mucus FEW Microscopic Urinalysis Comment CULT NOT INDICATED Potassium Level 3.9 3.8 Magnesium Level 1.7 Troponin I LESS THAN 0.02 White Blood Count 14.9 Red Blood Count 3.62 Hemoglobin 10.6 Hematocrit 31.2 Mean Corpuscular Volume 86.2 Mean Corpuscular Hemoglobin 29.2 Mean Corpuscular Hemoglobin 33.9 Concent Red Cell Distribution Width 15.2 Platelet Count 190 Mean Platelet Volume 9.8 Neutrophils (%) (Auto) 81.4 Lymphocytes (%) (Auto) 6.6 Monocytes (%) (Auto) 11.7 Eosinophils (%) (Auto) 0.1 Basophils (%) (Auto) 0.2 Neutrophils # (Auto) 12.1 Lymphocytes # (Auto) 1.0 Monocytes # (Auto) 1.7 Eosinophils # (Auto) 0.0 Basophils # (Auto) 0.0 CBC Comment AUTO DIFF Differential Comment AUTO DIFF CONFIRMED Sodium Level 139 Chloride Level 106 Carbon Dioxide Level 22.1 Anion Gap 11 Blood Urea Nitrogen 33 Creatinine 1.39 Estimat Glomerular Filtration 46 Rate Random Glucose 277 Calcium Level 9.5 Total Bilirubin 2.1 Aspartate Amino Transf 41 (AST/SGOT) Alanine Aminotransferase 82 (ALT/SGPT) Alkaline Phosphatase 87 Total Protein 6.0 Albumin 2.0 Lipase 449 Date/Time Procedure Status Source Growth 03/07/16 17:15 Aerobic Blood Culture Received Blood Peripheral Pending 03/07/16 17:15 Anaerobic Blood Culture Received Blood Peripheral Pending 03/04/16 16:55 Aerobic Blood Culture - Preliminary Resulted Blood Peripheral NO GROWTH IN 3 DAYS 03/04/16 16:55 Anaerobic Blood Culture - Preliminary Resulted Blood Peripheral NO GROWTH IN 3 DAYS 03/04/16 16:44 Urine Culture - Final Complete Urine Clean Catch NO GROWTH IN 48 HOURS. Imaging Last Impressions Chest X-Ray 03/07/16 0000 Signed Impressions: Service Date/Time: Monday, March 07, 2016 16:02 - CONCLUSION: 1. Minimal patchiness within the left lung base consistent with atelectasis and/or infiltrate. Clinical correlation is recommended. 2. Cardiomegaly. Odilon Butler MD GI Procedure 03/05/16 0000 Signed Impressions: Service Date/Time: Friday, March 04, 2016 23:02 - CONCLUSION: ERCP as above. Vidal Ye MD Gall Bladder Ultrasound 03/04/16 0000 Signed Impressions: Service Date/Time: Friday, March 04, 2016 19:36 - CONCLUSION: 1. Thick-walled gallbladder with some pericholecystic fluid and multiple gallstones in the region of the neck. The findings are suggestive of acute cholecystitis. Clinical correlation is recommended. 2. Fatty liver. 3. Minimal ascites within Polanco's pouch. 4. Poor visualization of the pancreas due to shadowing bowel gas. Odilon Butler MD Cholangiopancreatography MRI 03/04/16 0000 Signed Impressions: Service Date/Time: Friday, March 04, 2016 18:24 - CONCLUSION: 1. Extensive edema throughout the retroperitoneum and pancreas. No abscess or pseudocyst. 2. Tiny layering gallstones within the gallbladder. No discrete common bile duct stone. There is tapering of the common bile duct within the pancreatic head felt to be secondary to the edema within the pancreas. No discrete mass or choledocholithiasis. No intrahepatic or extrahepatic ductal dilatation. Maxwell Hsu Jr., MD Physical Exam NECK: Neck is supple, no JVD, no lymphadenopathy. CHEST: Chest is clear to auscultation and percussion. CARDIAC: Regular rate and rhythm with no murmur gallop or rubs. ABDOMEN: Non tender, soft, active bowel sound EXTREMITIES: No clubbing, cyanosis, or edema. SKIN: Normal; no rash; no jaundice. 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 Stroud and myself and this note is written on his behalf. (Otis Barreto) Physician Comments Seen and examined, plan as above, significant improvement chemically and clinically . (Dottie Stroud MD) Otis Barreto Mar 08, 2016 11:13 Dottie Stroud MD Mar 08, 2016 21:17
[2016-03-08] MEDS ORDERED: LIDOCAINE HCL 2% 100 MG/5 ML SYRINGE ONE (14:52)
[2016-03-08] MEDS ORDERED: ATROPINE SULFATE 1 MG/10 ML SYRINGE ONE (14:52)
[2016-03-08] MEDS ORDERED: EPINEPHrine HCL (1:10,000) 1 MG/10 ML SYRINGE ONE (14:52)
--- NOTE | 2016-03-08 15:21 | HHI.PR ---
Subjective Remarks Pt had episode of nonsustained VT last night. Pt had NO c/o chest pain. Objective Vitals Vital Signs Date Time Temp Pulse Resp B/P Pulse Ox O2 Delivery O2 Flow Rate FiO2 03/08/16 08:38 95 Nasal Cannula 2.00 03/08/16 06:00 128 03/08/16 04:00 126 03/08/16 04:00 100.5 126 28 152/88 95 03/08/16 02:00 124 03/08/16 00:00 100.7 116 30 158/76 94 03/08/16 00:00 116 03/07/16 22:00 128 03/07/16 20:39 94 Nasal Cannula 2.00 03/07/16 20:00 100.7 128 35 148/79 94 03/07/16 20:00 128 03/07/16 19:00 95 Nasal Cannula 2.00 03/07/16 18:00 128 03/07/16 16:00 98.7 127 29 140/66 94 03/07/16 16:00 127 03/07/16 03/07/16 03/08/16 15:00 23:00 07:00 Intake Total 1242 ml 1532 ml 371 ml Output Total 595 ml 447 ml 395 ml Balance 647 ml 1085 ml -24 ml Intake Oral 480 ml 840 ml IV Total 762 ml 692 ml 371 ml Output Urine Total 595 ml 447 ml 395 ml # Bowel Movements 0 Result Diagram: 03/08/16 0330 03/08/16 0330 Imaging Last Impressions GI Procedure 03/05/16 0000 Signed Impressions: Service Date/Time: Friday, March 04, 2016 23:02 - CONCLUSION: ERCP as above. Vidal Ye MD Chest X-Ray 03/04/16 1626 Signed Impressions: Service Date/Time: Friday, March 04, 2016 16:52 - CONCLUSION: 1. Mild cardiomegaly. 2. No acute focal pulmonary infiltrate or pulmonary vascular congestion. 3. Mild elevation of right hemidiaphragm. Odilon Butler MD Gall Bladder Ultrasound 03/04/16 0000 Signed Impressions: Service Date/Time: Friday, March 04, 2016 19:36 - CONCLUSION: 1. Thick-walled gallbladder with some pericholecystic fluid and multiple gallstones in the region of the neck. The findings are suggestive of acute cholecystitis. Clinical correlation is recommended. 2. Fatty liver. 3. Minimal ascites within Polanco's pouch. 4. Poor visualization of the pancreas due to shadowing bowel gas. Odilon Butler MD Cholangiopancreatography MRI 03/04/16 0000 Signed Impressions: Service Date/Time: Sunday, March 04, 2016 18:24 - CONCLUSION: 1. Extensive edema throughout the retroperitoneum and pancreas. No abscess or pseudocyst. 2. Tiny layering gallstones within the gallbladder. No discrete common bile duct stone. There is tapering of the common bile duct within the pancreatic head felt to be secondary to the edema within the pancreas. No discrete mass or choledocholithiasis. No intrahepatic or extrahepatic ductal dilatation. 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 No abscess or pseudocyst. Tiny layering gallstones within the gallbladder. No discrete common bile duct stone. There is tapering of the common bile duct within the pancreatic head felt to be secondary to the edema within the pancreas. No discrete mass or choledocholithiasis. No intrahepatic or extrahepatic ductal dilatation. - GB US (03/04) --> Thick-walled gallbladder with some pericholecystic fluid and multiple gallstones in the region of the neck. The findings are suggestive of acute cholecystitis. Fatty liver. Minimal ascites within Polanco's pouch. - Pt was seen by GI and underwent ERCP with stent placement in the CBD on - General Surgery is following and pt may require cholecystostomy tube - LFTs continue to improve - Lipase 7155 (03/07/16), 449 (03/08/16) - Pts renal function is now improving - Pt with low grade temps with Tmax 100.7F at noon - WBC count 17.3 (03/07/16) with elevated bands, 14.9 (03/08/16) - Cont. Zosyn - Cont. IVF - await input from ID - Supportive care - DVT prophylaxis (2) Cholangitis Status: Acute Plan: - See above (3) HTN (hypertension) Status: Chronic Plan: - metoprolol 50mg BID - start lisinopril 10mg BID (4) Renal insufficiency Status: Acute Plan: - improving - See above (5) Leukocytosis Status: Acute Plan: - improving - See above Yandel Stewart DO Mar 08, 2016 15:21
[2016-03-08] MEDS ORDERED: IOHEXOL 300 MG/ML 50 ML BTL (for RAD DIAG) IV ONE (15:46)
--- NOTE | 2016-03-08 16:12 | RADRPT ---
EXAM DATE/TIME: 03/08/2016 15:28 [place] COMPARISON: No previous studies available for comparison. INDICATIONS : Abdominal pain, pancreatitis. IV CONTRAST: 93 cc Omnipaque 300 (iohexol) IV ORAL CONTRAST: Prescribed oral contrast ingested. RADIATION DOSE: 27.71 CTDIvol (mGy) MEDICAL HISTORY : Carcinoma, breast. Hypertension. Pancreatitis. SURGICAL HISTORY : Hysterectomy. ENCOUNTER: Initial ACUITY: 2 days PAIN SCALE: 6/10 LOCATION: diffuse abdomen. TECHNIQUE: Volumetric scanning of the abdomen and pelvis was performed. Using automated exposure control and ad justment of the mA and/or kV according to patient size, radiation dose was kept as low as reasonably achievable to obtain optimal diagnostic quality images. FINDINGS: LOWER LUNGS: Mild bibasilar atelectasis. Small effusion on the left. LIVER: Homogeneous density without lesion. There is no dilation of the biliary tree. Biliary stent in place . SPLEEN: Normal size without lesion. PANCREAS: Diffusely edematous with prominent inflammatory change throughout pancreatic bed and in the para jordin l spaces bilaterally extending into the pelvis. Irregularly-shaped focus of relative increased densit y in the pancreatic body region may be a small area of normally preserved pancreatic parenchyma or ma y reflect hemorrhage within the injured organ. KIDNEYS: Normal in size and shape. There is no mass, stone or hydronephrosis. ADRENAL GLANDS: Within normal limits. VASCULAR: There is no aortic aneurysm. BOWEL/MESENTERY: The stomach, small bowel, and colon demonstrate no acute abnormality. Small volume of peritoneal flui d and mild nonspecific fluid and gaseous distention of bowel structures, likely reflecting mild ileus ABDOMINAL WALL: Within normal limits. RETROPERITONEUM: There is no lymphadenopathy. BLADDER: No wall thickening or mass. REPRODUCTIVE: Uterus surgically absent. INGUINAL: There is no lymphadenopathy or hernia. MUSCULOSKELETAL: Severe degenerative changes in the hips and spine. CONCLUSION: Severe changes of pancreatitis, potentially with areas of hemorrhagic conversion. Darrian Engel MD on March 08, 2016 at 16:02 Board Certified Radiologist. This report was verified electronically.
--- NOTE | 2016-03-08 17:02 | EC ---
Study Study Date:03/08/2016 STUDY CONCLUSIONS SUMMARY - Procedure narrative: Transthoracic echocardiography. Image quality was poor. Scanning was performed from the parasternal, apical, and subcostal acoustic windows. - Left ventricle: The cavity size was normal. Wall thickness was normal. Systolic function was normal. The estimated ejection fraction was in the range of 55% to 60%. Regional wall motion abnormalities cannot be excluded. - Tricuspid valve: Mild regurgitation. - Pulmonary arteries: PA peak pressure: 39mm Hg (S). If LV function is below 40, please consider prescribing an ACEI or ARB or document rationale for non-use. PROCEDURE DATA STUDY STATUS: Elective. Procedure: Transthoracic echocardiography. Image quality was poor. Scanning was performed from the parasternal, apical, and subcostal acoustic windows. Study completion: The patient tolerated the procedure well. Transthoracic echocardiography. M-mode, complete 2D, complete spectral Doppler, and color Doppler. Height: Height: 68in. Weight: Weight: 290.4lb. Body mass index: BMI: 44.2kg/m^2. Body surface area: BSA: 2.4m^2. Patient status: Inpatient. CARDIAC ANATOMY LEFT VENTRICLE: The cavity size was normal. Wall thickness was normal. Systolic function was normal. The estimated ejection fraction was in the range of 55% to 60%. Regional wall motion abnormalities cannot be excluded. AORTIC VALVE: Trileaflet; normal thickness leaflets. Doppler: Transvalvular velocity was within the normal range. There was no stenosis. No regurgitation. Valve area: 2.09cm^2 (Vmax). Indexed valve area: 0.87cm^2/m^2 (Vmax). Peak gradient: 11mm Hg (S). AORTA: Aortic root: The aortic root was normal in size. MITRAL VALVE: Structurally normal valve. Doppler: Transvalvular velocity was within the normal range. There was no evidence for stenosis. No regurgitation. LEFT ATRIUM: The atrium was normal in size. RIGHT VENTRICLE: The cavity size was normal. Wall thickness was normal. PULMONIC VALVE: Doppler: Transvalvular velocity was within the normal range. There was no evidence for stenosis. No regurgitation. TRICUSPID VALVE: Structurally normal valve. Doppler: Transvalvular velocity was within the normal range. Mild regurgitation. PULMONARY ARTERY: The main pulmonary artery was normal-sized. Systolic pressure was within the normal range. RIGHT ATRIUM: The atrium was normal in size. PERICARDIUM: There was no pericardial effusion. SYSTEMIC VEINS: Inferior vena cava: The vessel was normal in size. Patient weight: 290.4lb _Ejection fraction:_ 65-75% _Fractional shortening:_ 32% up to 5Kg 5-11.5Kg 11.6-22.9Kg 23-45Kg 45-57Kg Aortic Root 7-13 <17 13-22 17-27 17-27 LA diam 6-13 <23 24-38 33-47 37-40 RVID 10-17 7-15 7-15 7-18 8-17 LVIDd 12-22 <32 24-38 33-47 37-40 LVPW 2-4 3-6 5-7 6-8 7-8 IVS 2-4 3-6 5-7 6-8 7-8 BASIC MEASUREMENTS ADULT NORMAL Left ventricle LV internal dimension, ED, chordal *41.6 mm 43-52 level, PLAX LV internal dimension, ES, chordal 30 mm 23-38 level, PLAX Fractional shortening, chordal level, *28 % >29 PLAX LV posterior wall thickness, ED 9.43 mm IVS/LVPW ratio, ED 0.92 <1.3 Ventricular septum Septal thickness, ED 8.66 mm Aortic valve Leaflet separation 20 mm 15-26 Right ventricle RV internal dimension, ED, PLAX 24.8 mm 19-38 BASIC MEASUREMENTS ADULT NORMAL Aortic valve Leaflet separation 20 mm 15-26 Aorta Root diameter, ED 28 mm 20-37 Left atrium Anterior-posterior dimension, ES 38 mm 19-40 Anterior-posterior dimension index, ES 1.58 cm/m^2 <2.2 LA/aortic root ratio 1.36 DOPPLER MEASUREMENTS ADULT NORMAL Main pulmonary artery Pressure, S *39 mm Hg =30 Aortic valve Peak velocity, S 166 cm/s Peak gradient, S 11 mm Hg Valve area, Vmax 2.09 cm^2 Valve area index, Vmax 0.87 cm^2/m^2 Mitral valve Peak E-wave velocity 46.4 cm/s Peak A-wave velocity 54.8 cm/s Deceleration time *254 ms 150-230 Peak E/A ratio 0.8 Tricuspid valve Regurgitant peak velocity 295 cm/s Peak RV-RA gradient, S 35 mm Hg Maximal regurgitant velocity 295 cm/s Systemic veins Estimated CVP 10 mm Hg Right ventricle RV pressure, S *45 mm Hg <30 Pulmonic valve Peak velocity, S 126 cm/s LEGEND: Mean values are shown as u=mean value. Asterisk (*) andrews values outside specified normal range. Prepared and signed by Franck Mendez [id number]
--- NOTE | 2016-03-08 17:34 | PD.ID.CON ---
History of Present Illness Service Infectious Disease Consult Requested By Reason for Consult Evaluation and Mment of fever in a patient with acute cholangitis and acute severe pancreatitis. Primary Care Physician Vic Diaz DO Diagnoses: History of Present Illness is a 66-year-old woman who was admitted to the hospital with nausea and vomiting with severe abdominal pain and no po intake on admission.She also reports diarrhea prior to arrival. Patient reported chills on admission. No prior h/o gallstones or pancreatic issues. In the ED she was noted to have leukocytosis, hyperbilirubinemia, elevated lipase and lactic acidemia. MRCP revealed pancreatic and peripancreatic edema with compression of the distal CBD as well as gallstones. Ultrasound revealed gallstones in the neck of the gallbladder with pericholecystic fluid and wall thickening. She underwent emergent ERCP last night with stent placement. The cystic duct was patent. Patient reports some improvement in abdominal pain since ERCP. She is hemodynamically stable. LFTs remain elevated but trending downwards. Patient has low grade fevers and leucocytosis with bandemia. Pertinent positives and negatives: No central lines in place. Patient has a esparza in place since . No cough or chest pain. ID is consulted for evaluation and Mment of fever in a patient with acute cholangitis and acute severe pancreatitis. Review of Systems ROS Limitations: Poor Historian Gastrointestinal: COMPLAINS OF: Abdominal pain Past Family Social History Allergies: Coded Allergies: No Known Allergies (Verified , 02/18/15) Past Medical History Hypertension. History of breast cancer which apparently is in remission. Past Surgical History mastectomy Hysterectomy Colonoscopy ERCP this admission Reported Medications Reported Meds & Active Scripts Active Reported Letrozole 2.5 Mg Tab 1 Tab PO DAILY Lisinopril-Hctz 20-25 Mg Tab 1 Tab PO DAILY Active Ordered Medications Current Medications Medications (Trade) Dose Ordered Sig/Zonia Route Start Time Stop Time Status Last Admin (Trandate Inj) 20 mg Q2H PRN IV PUSH 03/04/16 18:15 Pantoprazole Sodium 40 mg 40 mg DAILY IV 03/04/16 18:15 03/08/16 09:40 Potassium Chloride 100 ml @ 50 mls/hr Q2H PRN IV 03/04/16 18:15 (KCl 20 Meq Premix Inj) 100 ml @ 50 mls/hr Q2H PRN IV 03/04/16 18:15 Potassium Chloride 40 meq 40 meq UNSCH PRN PO/TUBE 03/04/16 18:15 Potassium Chloride 100 ml @ 25 mls/hr UNSCH PRN IV 03/04/16 18:15 Potassium Chloride 100 ml @ 50 mls/hr Q2H PRN IV 03/04/16 18:15 (Magnesium Sulfate Inj/NS Inj) 100 ml @ 50 mls/hr UNSCH PRN IV 03/04/16 18:15 Magnesium Oxide 800 mg 800 mg UNSCH PRN PO 03/04/16 18:15 03/06/16 08:00 (Magnesium Sulfate Inj/NS Inj) 100 ml @ 50 mls/hr UNSCH PRN IV 03/04/16 18:15 Potassium Phosphate 2000 mg 2,000 mg Q4H PRN PO 03/04/16 18:15 03/06/16 12:00 (Sodium Phosphate Inj/NS 250 ml Inj) 250 ml @ 42 mls/hr UNSCH PRN IV 03/04/16 18:15 (KCl 40 Meq/30 ml Liq) 40 meq UNSCH PRN PO/TUBE 03/04/16 18:15 Potassium Phosphate 2000 mg 2,000 mg UNSCH PRN PO/TUBE 03/04/16 18:15 (Potassium Phosphate Inj/NS 250 ml Inj) 260 ml @ 42 mls/hr UNSCH PRN IV 03/04/16 18:15 (Dilaudid Pf Inj) 1 mg Q3H PRN IV 03/04/16 20:30 03/06/16 08:00 (Apresoline Inj) 10 mg Q1HR PRN IV PUSH 03/05/16 07:00 03/05/16 18:47 (Trandate Inj) 10 mg Q1HR PRN IV PUSH 03/05/16 06:45 03/06/16 15:16 (Nitroglycerin 2% Oint) 2 inch Q6HR PRN TOPICAL 03/05/16 06:45 (D50w (Vial) Inj) 25 ml UNSCH PRN IV PUSH 03/05/16 07:00 (Glucagon Inj) 1 mg UNSCH PRN OTHER 03/05/16 07:00 ([place] 5-325 Mg) 1 tab Q4H PRN PO 03/05/16 07:00 03/08/16 03:45 (NS Flush) 2 ml UNSCH PRN IV FLUSH 03/05/16 07:00 (NS Flush) 2 ml BID IV FLUSH 03/05/16 09:00 03/08/16 09:40 (Tylenol) 650 mg Q6H PRN PO 03/05/16 07:00 (Zofran Inj) 4 mg Q6H PRN IV 03/05/16 07:00 03/05/16 19:35 (Colace) 100 mg BID PO 03/05/16 09:00 03/08/16 09:42 (Senokot) 17.2 mg Q12H PRN PO 03/05/16 07:00 03/08/16 09:42 Miscellaneous Information 1 Q361D XX 03/05/16 07:00 03/05/16 20:52 (Chlorhexidine 2% Cloth) 3 pack Taper DAILY@04 TOP 03/06/16 04:00 03/02/17 03:59 03/08/16 04:01 (Chlorhexidine 2% Cloth) 3 pack UNSCH PRN TOP 03/05/16 07:00 Heparin Sodium (Porcine) 5000 units 5,000 units Q8H SQ 03/06/16 08:00 03/08/16 17:28 Lactated Ringer's 1,000 ml @ 175 mls/hr Q5H43M IV 03/06/16 01:00 03/08/16 05:19 (Zosyn 2.25 Gm Premix) 50 ml @ 200 mls/hr Q6H IV 03/06/16 12:00 03/08/16 17:28 (Lopressor) 50 mg Q12HR PO 03/08/16 10:00 03/08/16 09:42 (Prinivil) 10 mg Q12HR PO 03/08/16 21:00 (Diflucan) 100 mg DAILY PO 03/08/16 17:45 03/08/16 17:41 Family History reviewed and NC to current ID problems. Social History reviewed. Physical Exam Vital Signs Vital Signs Date Time Temp Pulse Resp B/P Pulse Ox O2 Delivery O2 Flow Rate FiO2 03/08/16 08:38 95 Nasal Cannula 2.00 03/08/16 06:00 128 03/08/16 04:00 126 03/08/16 04:00 100.5 126 28 152/88 95 03/08/16 02:00 124 03/08/16 00:00 100.7 116 30 158/76 94 03/08/16 00:00 116 03/07/16 22:00 128 03/07/16 20:39 94 Nasal Cannula 2.00 03/07/16 20:00 100.7 128 35 148/79 94 03/07/16 20:00 128 03/07/16 19:00 95 Nasal Cannula 2.00 03/07/16 18:00 128 Physical Exam GENERAL: This is a well-nourished, well-developed patient, in no apparent distress. SKIN: No rashes, ecchymoses or lesions. Cool and dry. HEAD: Atraumatic. Normocephalic. No temporal or scalp tenderness. EYES: Pupils equal round and reactive. Extraocular motions intact. No scleral icterus. No injection or drainage. ENT: Nose without bleeding, purulent drainage or septal hematoma. Throat without erythema, tonsillar hypertrophy or exudate. Uvula midline. Airway patent. NECK: Trachea midline. No JVD or lymphadenopathy. Supple, nontender, no meningeal signs. CARDIOVASCULAR: Regular rate and rhythm without murmurs, gallops, or rubs. RESPIRATORY: Clear to auscultation. Breath sounds equal bilaterally. No wheezes , rales, or rhonchi. GASTROINTESTINAL: Abdomen soft, tenderness in RUQ and epigastric region. MUSCULOSKELETAL: Extremities without clubbing, cyanosis, or edema. No joint tenderness, effusion, or edema noted. No calf tenderness. Negative Homans sign bilaterally. NEUROLOGICAL: Awake and alert. Grossly non focal Psych: cooperative IV line sites with no e/o infection. Laboratory Laboratory Tests Test 03/07/16 03/08/16 23:53 03:30 Potassium Level 3.9 3.8 Magnesium Level 1.7 Troponin I LESS THAN 0.02 White Blood Count 14.9 Red Blood Count 3.62 Hemoglobin 10.6 Hematocrit 31.2 Mean Corpuscular Volume 86.2 Mean Corpuscular Hemoglobin 29.2 Mean Corpuscular Hemoglobin 33.9 Concent Red Cell Distribution Width 15.2 Platelet Count 190 Mean Platelet Volume 9.8 Neutrophils (%) (Auto) 81.4 Lymphocytes (%) (Auto) 6.6 Monocytes (%) (Auto) 11.7 Eosinophils (%) (Auto) 0.1 Basophils (%) (Auto) 0.2 Neutrophils # (Auto) 12.1 Lymphocytes # (Auto) 1.0 Monocytes # (Auto) 1.7 Eosinophils # (Auto) 0.0 Basophils # (Auto) 0.0 CBC Comment AUTO DIFF Differential Comment AUTO DIFF CONFIRMED Sodium Level 139 Chloride Level 106 Carbon Dioxide Level 22.1 Anion Gap 11 Blood Urea Nitrogen 33 Creatinine 1.39 Estimat Glomerular Filtration 46 Rate Random Glucose 277 Calcium Level 9.5 Total Bilirubin 2.1 Aspartate Amino Transf 41 (AST/SGOT) Alanine Aminotransferase 82 (ALT/SGPT) Alkaline Phosphatase 87 Total Protein 6.0 Albumin 2.0 Lipase 449 Date/Time Procedure Status Source Growth 03/07/16 17:15 Aerobic Blood Culture - Preliminary Resulted Blood Peripheral NO GROWTH IN 1 DAY 03/07/16 17:15 Anaerobic Blood Culture - Preliminary Resulted Blood Peripheral NO GROWTH IN 1 DAY 03/04/16 16:44 Urine Culture - Final Complete Urine Clean Catch NO GROWTH IN 48 HOURS. Result Diagram: 03/08/16 0330 03/08/16 0330 Imaging Last Impressions Abdomen/Pelvis CT 03/08/16 0000 Signed Impressions: Service Date/Time: Tuesday, March 08, 2016 15:28 - CONCLUSION: Severe changes of pancreatitis, potentially with areas of hemorrhagic conversion. Darrian Engel MD Chest X-Ray 03/07/16 0000 Signed Impressions: Service Date/Time: Monday, March 07, 2016 16:02 - CONCLUSION: 1. Minimal patchiness within the left lung base consistent with atelectasis and/or infiltrate. Clinical correlation is recommended. 2. Cardiomegaly. Odilon Butler MD GI Procedure 03/05/16 0000 Signed Impressions: Service Date/Time: Friday, March 04, 2016 23:02 - CONCLUSION: ERCP as above. Vidal Ye MD Gall Bladder Ultrasound 03/04/16 0000 Signed Impressions: Service Date/Time: Friday, March 04, 2016 19:36 - CONCLUSION: 1. Thick-walled gallbladder with some pericholecystic fluid and multiple gallstones in the region of the neck. The findings are suggestive of acute cholecystitis. Clinical correlation is recommended. 2. Fatty liver. 3. Minimal ascites within Polanco's pouch. 4. Poor visualization of the pancreas due to shadowing bowel gas. Odilon Butler MD Cholangiopancreatography MRI 03/04/16 0000 Signed Impressions: Service Date/Time: Friday, March 04, 2016 18:24 - CONCLUSION: 1. Extensive edema throughout the retroperitoneum and pancreas. No abscess or pseudocyst. 2. Tiny layering gallstones within the gallbladder. No discrete common bile duct stone. There is tapering of the common bile duct within the pancreatic head felt to be secondary to the edema within the pancreas. No discrete mass or choledocholithiasis. No intrahepatic or extrahepatic ductal dilatation. Maxwell Hsu Jr., MD Assessment and Plan Assessment and Plan SIRS possible Sepsis related vs Pancreatitis related. Severe Pancreatitis with hemorrhage. Acute cholangitis Fever DDX: new infection, need for fungal coverage in abd sepsis, drug fever. UA negative. CXR negative. Recs: Continue Zosyn IV Add Diflucan If fevers persist will consider switching class of ABX. If that does not help it either then likely pancreatitis related SIRS although lipase is trending down suggesting resolving inflammatory process. Follow cultures Follow clinically. Margo WISE and patient. Cely Ayers MD Mar 08, 2016 17:33 Cely Ayers MD Mar 08, 2016 17:33
[2016-03-08] MEDS: FLUCONAZOLE 100 MG TAB PO SCH (17:41)
[2016-03-08] MEDS: LISINOPRIL 10 MG TAB PO SCH (20:47)
--- NOTE | 2016-03-08 21:09 | EKG ---
Date Performed: 03/07/2016 Time Performed: 22:58:48 PTAGE: 66 years EKG: Sinus tachycardia with PVC(s) Lateral ST-T changes may be due to myocardial ischemia Abnorm al ECG Compared to the PREVIOUS TRACING , ST present DOCTOR: Sincere Howard Interpretating Date/Time 03/08/2016 21:08:51
[2016-03-09] VITALS (14 sets, daily range): BP systolic 126–173; BP diastolic 58–99; PULSE 78–103; RESP 18–24; TEMP 97.9–99.9; O2SAT 93–99
[2016-03-09 04:44] LABS: INDIRECT BILIRUBIN 0.6 MG/DL (0.0-0.8); TOTAL BILIRUBIN ADULT 1.5 MG/DL (0.2-1.0)
[2016-03-09] MEDS: PIPERACIL-TAZO 2.25 GM PREMIX 50 ML IV SCH ×3 (05:54→18:13)
[2016-03-09] MEDS: LACTATED RINGER'S 1000 ML INJ 1,000 ML IV SCH ×3 (05:55→18:13)
[2016-03-09] MEDS: INSULIN NovoLIN REGULAR SUPPLEMENTAL SCALE SQ SCH ×4 (06:49→21:44)
--- NOTE | 2016-03-09 07:28 | PD.CARD.PN ---
Subjective Subjective Remarks Normal sinus overnight. BMP normal. Echo shows normal EF. Will continue beta ayyo Objective Vital Signs / I&O Vital Signs Date Time Temp Pulse Resp B/P Pulse Ox O2 Delivery O2 Flow Rate FiO2 03/09/16 06:00 95 03/09/16 04:00 98.9 103 23 139/65 96 03/09/16 04:00 103 03/09/16 02:00 101 03/09/16 00:00 99.1 100 24 147/67 96 03/09/16 00:00 100 03/08/16 22:00 97 03/08/16 20:00 99 Nasal Cannula 2.00 03/08/16 20:00 100 03/08/16 20:00 99.9 100 26 153/71 96 03/08/16 19:49 95 Nasal Cannula 03/08/16 16:00 85 03/08/16 16:00 98.7 85 28 166/82 94 03/08/16 12:00 90 03/08/16 12:00 98.8 90 32 123/78 96 03/08/16 08:38 95 Nasal Cannula 2.00 03/08/16 08:00 95 Nasal Cannula 2.00 03/08/16 08:00 98.2 129 30 138/65 95 03/08/16 08:00 129 I/O 03/08/16 03/08/16 03/08/16 03/09/16 03/09/16 03/09/16 07:00 15:00 23:00 07:00 15:00 23:00 Intake Total 515 ml 1605 ml 1449 ml 120 ml Output Total 435 ml 375 ml 475 ml 220 ml Balance 80 ml 1230 ml 974 ml -100 ml Intake Oral 1150 ml 420 ml 120 ml IV Total 515 ml 455 ml 1029 ml Output Urine Total 435 ml 375 ml 475 ml 220 ml # Bowel Movements 0 1 4 Laboratory Laboratory Tests Test 03/09/16 03:24 Total Bilirubin 1.5 MG/DL Direct Bilirubin 0.9 MG/DL Indirect Bilirubin 0.6 MG/DL Aspartate Amino Transf 29 U/L (AST/SGOT) Alanine Aminotransferase 52 U/L (ALT/SGPT) Alkaline Phosphatase 80 U/L Total Protein 6.0 GM/DL Albumin 1.8 GM/DL Lipase 224 U/L Star Cao MD, [facility] Mar 09, 2016 07:28
[2016-03-09] MEDS: DOCUSATE SODIUM 100 MG CAP PO SCH ×2 (09:00→20:38)
[2016-03-09] MEDS: FLUCONAZOLE 100 MG TAB PO SCH (09:29)
[2016-03-09] MEDS: LISINOPRIL 10 MG TAB PO SCH ×2 (09:29→20:39)
[2016-03-09] MEDS: PANTOPRAZOLE SODIUM 40 MG VIAL IV SCH (09:29)
[2016-03-09] MEDS: METOPROLOL TARTRATE 50 MG TAB PO SCH ×2 (09:29→20:39)
[2016-03-09] MEDS: HEPARIN SODIUM - SQ 10,000 UNITS/ML VIAL SQ SCH ×2 (09:30→20:40)
[2016-03-09] MEDS: SODIUM CHLORIDE 0.9% FLUSH 5 ML FLUSH IV FLUSH SCH ×2 (09:30→20:39)
--- NOTE | 2016-03-09 09:58 | HHI.PR ---
Subjective Subjective Notes Continues to feel better. HR much improved after lopressor started. Leilani clears. CT yesterday showed severe peripancreatic edema and retroperitoneal edema. Objective Vitals/I&O Vital Signs Date Time Temp Pulse Resp B/P Pulse Ox O2 Delivery O2 Flow Rate FiO2 03/09/16 07:00 98 Nasal Cannula 2.00 03/09/16 06:00 95 03/09/16 04:00 98.9 23 139/65 Labs Laboratory Tests Test 03/09/16 03:24 Total Bilirubin 1.5 Direct Bilirubin 0.9 Indirect Bilirubin 0.6 Aspartate Amino Transf 29 (AST/SGOT) Alanine Aminotransferase 52 (ALT/SGPT) Alkaline Phosphatase 80 Total Protein 6.0 Albumin 1.8 Lipase 224 Date/Time Procedure Status Source Growth 03/07/16 17:15 Aerobic Blood Culture - Preliminary Resulted Blood Peripheral NO GROWTH IN 1 DAY 03/07/16 17:15 Anaerobic Blood Culture - Preliminary Resulted Blood Peripheral NO GROWTH IN 1 DAY 03/04/16 16:44 Urine Culture - Final Complete Urine Clean Catch NO GROWTH IN 48 HOURS. Radiology Last Impressions GI Procedure 03/05/16 0000 Signed Impressions: Service Date/Time: Friday, March 04, 2016 23:02 - CONCLUSION: ERCP as above. Vidal Ye MD Chest X-Ray 03/04/16 1626 Signed Impressions: Service Date/Time: Friday, March 04, 2016 16:52 - CONCLUSION: 1. Mild cardiomegaly. 2. No acute focal pulmonary infiltrate or pulmonary vascular congestion. 3. Mild elevation of right hemidiaphragm. Odilon Butler MD Gall Bladder Ultrasound 03/04/16 0000 Signed Impressions: Service Date/Time: Friday, March 04, 2016 19:36 - CONCLUSION: 1. Thick-walled gallbladder with some pericholecystic fluid and multiple gallstones in the region of the neck. The findings are suggestive of acute cholecystitis. Clinical correlation is recommended. 2. Fatty liver. 3. Minimal ascites within Polanco's pouch. 4. Poor visualization of the pancreas due to shadowing bowel gas. Odilon Butler MD Cholangiopancreatography MRI 03/04/16 0000 Signed Impressions: Service Date/Time: Friday, March 04, 2016 18:24 - CONCLUSION: 1. Extensive edema throughout the retroperitoneum and pancreas. No abscess or pseudocyst. 2. Tiny layering gallstones within the gallbladder. No discrete common bile duct stone. There is tapering of the common bile duct within the pancreatic head felt to be secondary to the edema within the pancreas. No discrete mass or choledocholithiasis. No intrahepatic or extrahepatic ductal dilatation. Maxwell Hsu Jr., MD Narrative Exam Awake and alert, no distress CV: RRR Abd: mod ttp in epigastrium, no guarding. Lower abdomen nontender. : UOP adequate A/P Assessment and Plan 66 yo F with biliary obstruction secondary to pancreatic head edema s/p ERCP with stent, gallstone pancreatitis, acute cholecystitis. Recommend dobhoff placement and initiation of post pyloric tube feeds. Would continue antibiotics. I do not think she needs cholecystostomy tube at this time. TuckerBrian garcia MD Mar 09, 2016 09:58
--- NOTE | 2016-03-09 11:03 | RADRPT ---
EXAM DATE/TIME: 03/09/2016 10:33 [facility] COMPARISON: CHEST SINGLE AP, March 07, 2016, 16:02. INDICATIONS : NG tube placement MEDICAL HISTORY : Carcinoma, breast. Hypertension. SURGICAL HISTORY : Hysterectomy. ENCOUNTER: Subsequent ACUITY: 3 days PAIN SCORE: 0/10 LOCATION: Bilateral abdomen FINDINGS: The examination demonstrates a weighted feeding tube to be present. The tip of the tube is through th e pylorus and into the proximal duodenum. Note is made of an internal biliary stent. The exam demonstrates mild gaseous distention of the small bowel. There no findings to indicate bowel obstruction. CONCLUSION: The tip of the feeding tube is through the pylorus and into the proximal duodenum. Scar Resendez MD on March 09, 2016 at 10:59 Board Certified Radiologist. This report was verified electronically.
--- NOTE | 2016-03-09 11:42 | RADRPT ---
EXAM DATE/TIME: 03/09/2016 11:11 [facility] COMPARISON: ABDOMEN KUB ONLY, March 09, 2016, 10:33. INDICATIONS : Confirm NG Tube Placement. MEDICAL HISTORY : Carcinoma, breast. Hypertension. Pancreatitis. SURGICAL HISTORY : Hysterectomy. ENCOUNTER: Subsequent ACUITY: 3 days PAIN SCORE: 4/10 LOCATION: Abdomen. FINDINGS: The examination demonstrates the tip of a weighted feeding tube to be through the pylorus and into th e descending portion of the duodenum. Note is made of the distal portion of a biliary stent. There is mild gaseous distention of at least 2 loops of small bowel. CONCLUSION: 1. The tip of the weighted feeding tube is located in the descending portion of the duodenum. Scar Resendez MD on March 09, 2016 at 11:36 Board Certified Radiologist. This report was verified electronically.
--- NOTE | 2016-03-09 12:18 | HHI.GIFU ---
Subjective Remarks patient was receiving a bed bath, accompanied by nurses who reports blue discoloration on bilateral sides of lower abd, no nausea, vomiting or abd pain, Dobbhoff tube inserted. (Mary LouAnupdavidjohn CORONADO) Objective Vitals I&O Vital Signs Date Time Temp Pulse Resp B/P Pulse Ox O2 Delivery O2 Flow Rate FiO2 03/09/16 10:00 85 03/09/16 08:00 99.9 82 23 153/68 99 03/09/16 08:00 82 03/09/16 07:00 98 Nasal Cannula 2.00 03/09/16 06:00 95 03/09/16 04:00 98.9 103 23 139/65 96 03/09/16 04:00 103 03/09/16 02:00 101 03/09/16 00:00 99.1 100 24 147/67 96 03/09/16 00:00 100 03/08/16 22:00 97 03/08/16 20:00 99 Nasal Cannula 2.00 03/08/16 20:00 100 03/08/16 20:00 99.9 100 26 153/71 96 03/08/16 19:49 95 Nasal Cannula 03/08/16 16:00 85 03/08/16 16:00 98.7 85 28 166/82 94 I/O 03/08/16 03/08/16 03/08/16 03/09/16 03/09/16 03/09/16 06:59 14:59 22:59 06:59 14:59 22:59 Intake Total 455 ml 1613 ml 1585 ml 120 ml 10 ml Output Total 445 ml 360 ml 490 ml 260 ml Balance 10 ml 1253 ml 1095 ml -140 ml 10 ml Intake Oral 1150 ml 420 ml 120 ml 10 ml IV Total 455 ml 463 ml 1165 ml Output Urine Total 445 ml 360 ml 490 ml 260 ml # Bowel Movements 0 1 4 Laboratory Laboratory Tests Test 03/09/16 03:24 Total Bilirubin 1.5 Direct Bilirubin 0.9 Indirect Bilirubin 0.6 Aspartate Amino Transf 29 (AST/SGOT) Alanine Aminotransferase 52 (ALT/SGPT) Alkaline Phosphatase 80 Total Protein 6.0 Albumin 1.8 Lipase 224 Date/Time Procedure Status Source Growth 03/07/16 17:15 Aerobic Blood Culture - Preliminary Resulted Blood Peripheral NO GROWTH IN 2 DAYS 12/20/16 17:15 Anaerobic Blood Culture - Preliminary Resulted Blood Peripheral NO GROWTH IN 2 DAYS 03/04/16 16:55 Aerobic Blood Culture - Final Complete Blood Peripheral NO GROWTH IN 5 DAYS 03/04/16 16:55 Anaerobic Blood Culture - Final Complete Blood Peripheral NO GROWTH IN 5 DAYS 03/04/16 16:44 Urine Culture - Final Complete Urine Clean Catch NO GROWTH IN 48 HOURS. Imaging Last Impressions Abdomen X-Ray 03/09/16 0000 Signed Impressions: Service Date/Time: February 11:11 - CONCLUSION: 1. The tip of the weighted feeding tube is located in the descending portion of the duodenum. Scar Resendez MD Abdomen/Pelvis CT 03/08/16 0000 Signed Impressions: Service Date/Time: Tuesday, March 08, 2016 15:28 - CONCLUSION: Severe changes of pancreatitis, potentially with areas of hemorrhagic conversion. Darrian Engel MD Chest X-Ray 03/07/16 0000 Signed Impressions: Service Date/Time: Monday, March 07, 2016 16:02 - CONCLUSION: 1. Minimal patchiness within the left lung base consistent with atelectasis and/or infiltrate. Clinical correlation is recommended. 2. Cardiomegaly. Odilon Butler MD GI Procedure 03/05/16 0000 Signed Impressions: Service Date/Time: Friday, March 04, 2016 23:02 - CONCLUSION: ERCP as above. Vidal Ye MD Gall Bladder Ultrasound 03/04/16 0000 Signed Impressions: Service Date/Time: Friday, March 04, 2016 19:36 - CONCLUSION: 1. Thick-walled gallbladder with some pericholecystic fluid and multiple gallstones in the region of the neck. The findings are suggestive of acute cholecystitis. Clinical correlation is recommended. 2. Fatty liver. 3. Minimal ascites within Polanco's pouch. 4. Poor visualization of the pancreas due to shadowing bowel gas. Odilon Butler MD Cholangiopancreatography MRI 03/04/16 0000 Signed Impressions: Service Date/Time: Friday, March 04, 2016 18:24 - CONCLUSION: 1. Extensive edema throughout the retroperitoneum and pancreas. No abscess or pseudocyst. 2. Tiny layering gallstones within the gallbladder. No discrete common bile duct stone. There is tapering of the common bile duct within the pancreatic head felt to be secondary to the edema within the pancreas. No discrete mass or choledocholithiasis. No intrahepatic or extrahepatic ductal dilatation. Maxwell Hsu Jr., MD Physical Exam NECK: Neck is supple, no JVD, no lymphadenopathy. CHEST: Chest is clear to auscultation and percussion. CARDIAC: Regular rate and rhythm with no murmur gallop or rubs. ABDOMEN: Non tender, soft, active bowel sound, blue discoloration to bilateral lower abd EXTREMITIES: No clubbing, cyanosis, or edema. SKIN: Normal; no rash; no jaundice. (Otis Barreto) Assessment and Plan Plan ASSESSMENT: - Acute pancreatitis, lipase normalized, CT yesterday showed severe peripancreatic edema and retroperitoneal edema, potentially with areas of hemorrhagic conversion. - Acute cholecystitis- GS on the case, holding off on surgery due to leukocytosis, CT91/) yesterday showed diffusely edematous with prominent inflammatory change throughout pancreatic bed ans in the para renal spaces bilaterally extending into the pelvis. 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, s/p ercp with stent placement , LFTs, lipase continue to improve - Leukocytosis- WBC 14.9, febrile,CT yesterday showed severe peripancreatic edema and retroperitoneal edema, potentially with areas of hemorrhagic conversion.Dobbhoff inserted for post pyloric feedings - possible hemorrhage- patient on Heparin, blue discoloration to bilateral lower abd Recommendations - consult c wpf developer for TF recommendation - Stat CBC - Consider discontinuing heparin - IV antibiotics - GS on the case - ERCP in 3 months for stent removal - Supportive care - Further recommendations to follow - Patient seen and examined by Dr. Stroud and myself and this note is written on his behalf. (Otis Barreto) Physician Comments Seen and examined, plan as above, will sign off for now, please notify us if needed. (Dottie Stroud MD) Otis Barreto Mar 09, 2016 12:18 Dottie Stroud MD Mar 09, 2016 12:52
[2016-03-09 12:43] LABS: AUTOMATED NEUTROPHIL # 14.9 TH/MM3 (1.8-7.7); BASOPHIL # 0.1 TH/MM3 (0-0.2); BASOPHIL % 0.6 % (0.0-2.0); EOSINOPHIL # 0.6 TH/MM3 (0-0.4); EOSINOPHIL % 3.3 % (0.0-4.0); HEMATOCRIT 32.3 % (35.0-46.0); LYMPH % 10.7 % (9.0-44.0); LYMPHOCYTE # 2.1 TH/MM3 (1.0-4.8); MEAN CELL VOLUME 86.9 FL (80.0-100.0); MEAN CORPUSCULAR HEMOGLOBIN 28.5 PG (27.0-34.0); MEAN CORPUSCULAR HGB CONC 32.8 % (32.0-36.0); MONO % 7.9 % (0.0-8.0); NEUT % 77.5 % (16.0-70.0); PLATELET COUNT 207 TH/MM3 (150-450); RED BLOOD COUNT 3.72 MIL/MM3 (4.00-5.30); WHITE BLOOD COUNT 19.3 TH/MM3 (4.0-11.0)
[2016-03-09 12:45] LABS: HEMO FLAGS AUTO DIFF
--- NOTE | 2016-03-09 13:09 | HHI.PR ---
Subjective Remarks Pt had Dobhoff placed today for post-pyloric TF Pt had some bluish discoloration on her flanks and thighs noted by the nursing staff. Pt feeling more SOB today and appears dyspneic and is audibly wheezing at the time of exam Objective Vitals Vital Signs Date Time Temp Pulse Resp B/P Pulse Ox O2 Delivery O2 Flow Rate FiO2 03/09/16 12:00 99.1 78 24 173/99 93 03/09/16 12:00 78 03/09/16 10:00 85 03/09/16 08:00 99.9 82 23 153/68 99 03/09/16 08:00 82 03/09/16 07:00 98 Nasal Cannula 2.00 03/09/16 06:00 95 03/09/16 04:00 98.9 103 23 139/65 96 03/09/16 04:00 103 03/09/16 02:00 101 03/09/16 00:00 99.1 100 24 147/67 96 03/09/16 00:00 100 03/08/16 22:00 97 03/08/16 20:00 99 Nasal Cannula 2.00 03/08/16 20:00 100 03/08/16 20:00 99.9 100 26 153/71 96 03/08/16 19:49 95 Nasal Cannula 03/08/16 16:00 85 03/08/16 16:00 98.7 85 28 166/82 94 03/08/16 03/08/16 03/09/16 15:00 23:00 07:00 Intake Total 1605 ml 1449 ml 130 ml Output Total 375 ml 475 ml 220 ml Balance 1230 ml 974 ml -90 ml Intake Oral 1150 ml 420 ml 130 ml IV Total 455 ml 1029 ml Output Urine Total 375 ml 475 ml 220 ml # Bowel Movements 0 1 4 Result Diagram: 03/09/16 1226 03/08/16 0330 Other Results Laboratory Tests Test 03/07/16 03/07/16 03/08/16 03/09/16 16:40 23:53 03:30 03:24 Urine Color YELLOW Urine Turbidity HAZY Urine pH 5.5 Urine Specific [place] 1.020 Urine Protein 30 mg/dL Urine Glucose (UA) 150 mg/dL Urine Ketones NEG mg/dL Urine Occult Blood MOD Urine Nitrite NEG Urine Bilirubin SMALL Urine Urobilinogen LESS THAN 2.0 MG/DL Urine Leukocyte Esterase NEG Urine RBC 11 /hpf Urine WBC 2 /hpf Urine Squamous Epithelial <1 /hpf Cells Urine Bacteria RARE /hpf Urine Mucus FEW /lpf Microscopic Urinalysis Comment CULT NOT INDICATED Potassium Level 3.9 MEQ/L 3.8 MEQ/L Magnesium Level 1.7 MG/DL Troponin I LESS THAN 0.02 NG/ML White Blood Count 14.9 TH/MM3 Red Blood Count 3.62 MIL/MM3 Hemoglobin 10.6 GM/DL Hematocrit 31.2 % Mean Corpuscular Volume 86.2 FL Mean Corpuscular Hemoglobin 29.2 PG Mean Corpuscular Hemoglobin 33.9 % Concent Red Cell Distribution Width 15.2 % Platelet Count 190 TH/MM3 Mean Platelet Volume 9.8 FL Neutrophils (%) (Auto) 81.4 % Lymphocytes (%) (Auto) 6.6 % Monocytes (%) (Auto) 11.7 % Eosinophils (%) (Auto) 0.1 % Basophils (%) (Auto) 0.2 % Neutrophils # (Auto) 12.1 TH/MM3 Lymphocytes # (Auto) 1.0 TH/MM3 Monocytes # (Auto) 1.7 TH/MM3 Eosinophils # (Auto) 0.0 TH/MM3 Basophils # (Auto) 0.0 TH/MM3 CBC Comment AUTO DIFF Differential Comment AUTO DIFF CONFIRMED Sodium Level 139 MEQ/L Chloride Level 106 MEQ/L Carbon Dioxide Level 22.1 MEQ/L Anion Gap 11 MEQ/L Blood Urea Nitrogen 33 MG/DL Creatinine 1.39 MG/DL Estimat Glomerular Filtration 46 ML/MIN Rate Random Glucose 277 MG/DL Calcium Level 9.5 MG/DL Total Bilirubin 2.1 MG/DL 1.5 MG/DL Aspartate Amino Transf 41 U/L 29 U/L (AST/SGOT) Alanine Aminotransferase 82 U/L 52 U/L (ALT/SGPT) Alkaline Phosphatase 87 U/L 80 U/L Total Protein 6.0 GM/DL 6.0 GM/DL Albumin 2.0 GM/DL 1.8 GM/DL Lipase 449 U/L 224 U/L Direct Bilirubin 0.9 MG/DL Indirect Bilirubin 0.6 MG/DL Test 03/09/16 12:26 White Blood Count 19.3 TH/MM3 Red Blood Count 3.72 MIL/MM3 Hemoglobin 10.6 GM/DL Hematocrit 32.3 % Mean Corpuscular Volume 86.9 FL Mean Corpuscular Hemoglobin 28.5 PG Mean Corpuscular Hemoglobin 32.8 % Concent Red Cell Distribution Width 15.0 % Platelet Count 207 TH/MM3 Mean Platelet Volume 9.5 FL Neutrophils (%) (Auto) 77.5 % Lymphocytes (%) (Auto) 10.7 % Monocytes (%) (Auto) 7.9 % Eosinophils (%) (Auto) 3.3 % Basophils (%) (Auto) 0.6 % Neutrophils # (Auto) 14.9 TH/MM3 Lymphocytes # (Auto) 2.1 TH/MM3 Monocytes # (Auto) 1.5 TH/MM3 Eosinophils # (Auto) 0.6 TH/MM3 Basophils # (Auto) 0.1 TH/MM3 CBC Comment AUTO DIFF Imaging Last Impressions Abdomen X-Ray 03/09/16 0000 Signed Impressions: Service Date/Time: February 11:11 - CONCLUSION: 1. The tip of the weighted feeding tube is located in the descending portion of the duodenum. Scar Resenedz MD Abdomen/Pelvis CT 03/08/16 0000 Signed Impressions: Service Date/Time: Tuesday, March 08, 2016 15:28 - CONCLUSION: Severe changes of pancreatitis, potentially with areas of hemorrhagic conversion. Darrian Engel MD Chest X-Ray 03/07/16 0000 Signed Impressions: Service Date/Time: Monday, March 07, 2016 16:02 - CONCLUSION: 1. Minimal patchiness within the left lung base consistent with atelectasis and/or infiltrate. Clinical correlation is recommended. 2. Cardiomegaly. Odilon Butler MD GI Procedure 03/05/16 0000 Signed Impressions: Service Date/Time: Friday, March 04, 2016 23:02 - CONCLUSION: ERCP as above. Vidal Ye MD Gall Bladder Ultrasound 03/04/16 0000 Signed Impressions: Service Date/Time: Friday, March 04, 2016 19:36 - CONCLUSION: 1. Thick-walled gallbladder with some pericholecystic fluid and multiple gallstones in the region of the neck. The findings are suggestive of acute cholecystitis. Clinical correlation is recommended. 2. Fatty liver. 3. Minimal ascites within Polanco's pouch. 4. Poor visualization of the pancreas due to shadowing bowel gas. Odilon Butler MD Cholangiopancreatography MRI 03/04/16 0000 Signed Impressions: Service Date/Time: Friday, March 04, 2016 18:24 - CONCLUSION: 1. Extensive edema throughout the retroperitoneum and pancreas. No abscess or pseudocyst. 2. Tiny layering gallstones within the gallbladder. No discrete common bile duct stone. There is tapering of the common bile duct within the pancreatic head felt to be secondary to the edema within the pancreas. No discrete mass or choledocholithiasis. No intrahepatic or extrahepatic ductal dilatation. Maxwell Hsu Jr., MD Objective Remarks General: NAD, AAOx3 Chest: diffuse wheeze, poor air movement, appears dyspneic Cardiac: Tachy, regular Abd: soft, +BS x 4 Ext: Bilateral LE pitting edema A/P Problem List: (1) Severe sepsis with acute organ dysfunction Status: Acute Plan: - Pt admitted with sudden onset of abd pain, nausea/vomiting on 03/04/16 - Labs at admission noted elevated WBC count 16.8 - LFTs were elevated at TBili 4.0, AST 472, ALT 378, AlkPhos 154 with Lipase of 7635 - Also noted to have an elevated Lactic acid of 4.5 and was admitted to ICU - MRCP (03/04) --> Extensive edema throughout the retroperitoneum and pancreas. No abscess or pseudocyst. Tiny layering gallstones within the gallbladder. No discrete common bile duct stone. There is tapering of the common bile duct within the pancreatic head felt to be secondary to the edema within the pancreas. No discrete mass or choledocholithiasis. No intrahepatic or extrahepatic ductal dilatation. - GB US (03/04) --> Thick-walled gallbladder with some pericholecystic fluid and multiple gallstones in the region of the neck. The findings are suggestive of acute cholecystitis. Fatty liver. Minimal ascites within Polanco's pouch. - Pt was seen by GI and underwent ERCP with stent placement in the CBD on - General Surgery is following - LFTs continue to improve - Lipase 7155 (03/07/16) --> 449 (03/08/16) --> 224 (03/09) - Pt had been having fevers and CT Abd/pelvis was repeated on 03/08 which noted severe changes of pancreatitis, potentially with areas of hemorrhagic conversion. - Pt made NPO and had Dobbhoff placed for post-pyloric TF - Pt with continues to have low grade temps with Tmax 99.9 today - WBC count increased today to 19.3 - Blood cultures (03/04) with no growth x 5 days - Repeat blood cultures (03/07) with no growth to date - Cont. Zosyn - Diflucan 100mg po daily added on 03/08 - Appreciate input from ID - Pt more SOB today and appears to be dyspneic and audibly wheezing on exam - Check STAT CXR - Pts weight has increased from 121Kg to 130 Kg since admission. - Pt is receiving IVF with LR @175mL/hr - Pt likely getting volume overloaded and will require some diuresis. Await CXR results - DVT prophylaxis (2) Pancreatitis, acute Status: Acute Plan: - See above. (3) Cholangitis Status: Acute Plan: - See above (4) Ventricular tachycardia (paroxysmal) Status: Acute Plan: - Cardiology consulted on 03/08 due to pt having a two runs of ventricular tachycardia on 03/07 which was felt to be secondary to her acute illness. - Pt was started on Metoprolol 50mg Q12H - No further issues with dysrhythmia noted - 2D echo (03/08) - Estimated EF 55-60% - Mild tricuspid regurgitation - PA peak pressure 39mmHg (5) HTN (hypertension) Status: Chronic Plan: - Cont. Metoprolol 50mg BID - Cont. Lisinopril 10mg BID (6) Renal insufficiency Status: Acute Plan: - improving - See above (7) Leukocytosis Status: Acute Plan: - improving - See above Assessment and Plan Patient examined. Assessment and plan formulated with Zita Plummer PA-C. I agree with the above. Zita Plummer Mar 09, 2016 13:09 Yandel Stewart DO Mar 10, 2016 00:04
[2016-03-09 13:16] LABS: MAGNESIUM 2.2 MG/DL (1.5-2.5)
[2016-03-09 13:17] LABS: BANDS 11 % (0-6); CORRECTED NUCLEATED RBC 1 /100 WBC (0-0); EOSINOPHILS 2 % (0-4); METAMYELOCYTES 1 % (0-1); MYELOCYTES 8 % (0-0); NEUTROPHIL # MANUAL DIFF 14.5 TH/MM3 (1.8-7.7); PLASMA CELLS 1 % (0-0); PLATELET ESTIMATE SMEAR NORMAL (NORMAL); PLATELET MORPHOLOGY NORMAL (NORMAL); POLYS (SEG NEUTROPHILS) 55 % (16-70); SCAN/DIFF FINAL DIFF MANUAL; TOXIC GRANULATION 1+ (NORMAL); TOXIC VACUOLATION PRESENT (NONE SEEN); WBC DIFF SAMPLE 100
[2016-03-09 13:18] LABS: OVALOCYTES 1+ (NORMAL)
[2016-03-09] MEDS: ACETAMINOPHEN/HYDROcodone 325 MG/5 MG TAB PO PRN (13:21)
--- NOTE | 2016-03-09 13:31 | RADRPT ---
EXAM DATE/TIME: 03/09/2016 13:11 [facility] COMPARISON: CHEST SINGLE AP, March 07, 2016, 16:02. INDICATIONS : Short of breath. MEDICAL HISTORY : Carcinoma, breast. Pancreatitis. Hypertension. SURGICAL HISTORY : Hysterectomy. ENCOUNTER: Subsequent ACUITY: 2 days PAIN SCORE: 0/10 LOCATION: Bilateral chest FINDINGS: A single portable frontal view of the chest is blurred by motion artifact. The heart is at the upper limits of normal in terms of size. Right hemidiaphragm elevation is again noted. Again seen is a pare nchymal opacity within the left lower lobe. This is similar to the prior study. No effusions. Weighte d feeding tube courses off the inferior margin of the film. CONCLUSION: Left lower lobe atelectasis versus infiltrate is unchanged. Maxwell Hsu Jr., MD on March 09, 2016 at 13:18 Board Certified Radiologist. This report was verified electronically.
[2016-03-09] MEDS ORDERED: FUROSEMIDE 100 MG/10 ML VIAL IV PUSH ONE (14:00)
--- NOTE | 2016-03-09 14:18 | HHI.IDPN ---
Subjective Subjective Remarks is a 66-year-old woman who was admitted to the hospital with nausea and vomiting with severe abdominal pain and no po intake on admission.She also reports diarrhea prior to arrival. Patient reported chills on admission. No prior h/o gallstones or pancreatic issues. Being treated acute pancreatitis and acute cholangitis. Overnight events reviewed No fever No rash No diarrhea. Antibiotics Zosyn IV Diflucan oral Lines Line sites with no e/o infection Past Medical History reviewed. Allergies: Coded Allergies: No Known Allergies (Verified , 02/18/15) Objective . Vital Signs Date Time Temp Pulse Resp B/P Pulse Ox O2 Delivery O2 Flow Rate FiO2 03/09/16 12:00 99.1 78 24 173/99 93 03/09/16 12:00 78 03/09/16 10:00 85 03/09/16 08:00 99.9 82 23 153/68 99 03/09/16 08:00 82 03/09/16 07:00 98 Nasal Cannula 2.00 03/09/16 06:00 95 03/09/16 04:00 98.9 103 23 139/65 96 03/09/16 04:00 103 03/09/16 02:00 101 03/09/16 00:00 99.1 100 24 147/67 96 03/09/16 00:00 100 03/08/16 22:00 97 03/08/16 20:00 99 Nasal Cannula 2.00 03/08/16 20:00 100 03/08/16 20:00 99.9 100 26 153/71 96 03/08/16 19:49 95 Nasal Cannula 03/08/16 16:00 85 03/08/16 16:00 98.7 85 28 166/82 94 03/08/16 03/08/16 03/09/16 15:00 23:00 07:00 Intake Total 1605 ml 1449 ml 130 ml Output Total 375 ml 475 ml 220 ml Balance 1230 ml 974 ml -90 ml Intake Oral 1150 ml 420 ml 130 ml IV Total 455 ml 1029 ml Output Urine Total 375 ml 475 ml 220 ml # Bowel Movements 0 1 4 . Laboratory Tests Test 03/08/16 03/09/16 03:30 12:26 White Blood Count 14.9 TH/MM3 19.3 TH/MM3 Red Blood Count 3.62 MIL/MM3 3.72 MIL/MM3 Hemoglobin 10.6 GM/DL 10.6 GM/DL Hematocrit 31.2 % 32.3 % Mean Corpuscular Volume 86.2 FL 86.9 FL Mean Corpuscular Hemoglobin 29.2 PG 28.5 PG Mean Corpuscular Hemoglobin 33.9 % 32.8 % Concent Red Cell Distribution Width 15.2 % 15.0 % Platelet Count 190 TH/MM3 207 TH/MM3 Mean Platelet Volume 9.8 FL 9.5 FL Neutrophils (%) (Auto) 81.4 % 77.5 % Lymphocytes (%) (Auto) 6.6 % 10.7 % Monocytes (%) (Auto) 11.7 % 7.9 % Eosinophils (%) (Auto) 0.1 % 3.3 % Basophils (%) (Auto) 0.2 % 0.6 % Neutrophils # (Auto) 12.1 TH/MM3 14.9 TH/MM3 Lymphocytes # (Auto) 1.0 TH/MM3 2.1 TH/MM3 Monocytes # (Auto) 1.7 TH/MM3 1.5 TH/MM3 Eosinophils # (Auto) 0.0 TH/MM3 0.6 TH/MM3 Basophils # (Auto) 0.0 TH/MM3 0.1 TH/MM3 CBC Comment AUTO DIFF AUTO DIFF Differential Comment AUTO DIFF FINAL DIFF CONFIRMED MANUAL Differential Total Cells 100 Counted Neutrophils % (Manual) 55 % Band Neutrophils % 11 % Lymphocytes % 11 % Monocytes % 11 % Eosinophils % 2 % Neutrophils # (Manual) 14.5 TH/MM3 Metamyelocytes 1 % Myelocytes 8 % Nucleated Red Blood Cells 1 /100 WBC Plasma Cells 1 % Toxic Granulation 1+ Toxic Vacuolation PRESENT Platelet Estimate NORMAL Platelet Morphology Comment NORMAL Polychromasia 2.0 % Ovalocytes 1+ Laboratory Tests Test 03/07/16 03/08/16 03/09/16 03/09/16 23:53 03:30 03:24 12:18 Potassium Level 3.9 MEQ/L 3.8 MEQ/L Magnesium Level 1.7 MG/DL 2.2 MG/DL Troponin I LESS THAN 0.02 NG/ML Sodium Level 139 MEQ/L Chloride Level 106 MEQ/L Carbon Dioxide Level 22.1 MEQ/L Anion Gap 11 MEQ/L Blood Urea Nitrogen 33 MG/DL Creatinine 1.39 MG/DL Estimat Glomerular Filtration 46 ML/MIN Rate Random Glucose 277 MG/DL Calcium Level 9.5 MG/DL Total Bilirubin 2.1 MG/DL 1.5 MG/DL Aspartate Amino Transf 41 U/L 29 U/L (AST/SGOT) Alanine Aminotransferase 82 U/L 52 U/L (ALT/SGPT) Alkaline Phosphatase 87 U/L 80 U/L Total Protein 6.0 GM/DL 6.0 GM/DL Albumin 2.0 GM/DL 1.8 GM/DL Lipase 449 U/L 224 U/L Direct Bilirubin 0.9 MG/DL Indirect Bilirubin 0.6 MG/DL Phosphorus Level 2.2 MG/DL Microbiology Date/Time Procedure Status Source Growth 03/07/16 17:10 Aerobic Blood Culture - Preliminary Resulted Blood Peripheral NO GROWTH IN 2 DAYS 03/07/16 17:10 Anaerobic Blood Culture - Preliminary Resulted Blood Peripheral NO GROWTH IN 2 DAYS 03/07/16 17:15 Aerobic Blood Culture - Preliminary Resulted Blood Peripheral NO GROWTH IN 2 DAYS 03/07/16 17:15 Anaerobic Blood Culture - Preliminary Resulted Blood Peripheral NO GROWTH IN 2 DAYS Imaging Last Impressions Chest X-Ray 03/09/16 0000 Signed Impressions: Service Date/Time: February 13:11 - CONCLUSION: Left lower lobe atelectasis versus infiltrate is unchanged. Maxwell Hsu Jr., MD Abdomen X-Ray 03/09/16 0000 Signed Impressions: Service Date/Time: February 11:11 - CONCLUSION: 1. The tip of the weighted feeding tube is located in the descending portion of the duodenum. Scar Resendez MD Abdomen/Pelvis CT 03/08/16 0000 Signed Impressions: Service Date/Time: Tuesday, March 08, 2016 15:28 - CONCLUSION: Severe changes of pancreatitis, potentially with areas of hemorrhagic conversion. Darrian Engel MD GI Procedure 03/05/16 0000 Signed Impressions: Service Date/Time: Friday, March 04, 2016 23:02 - CONCLUSION: ERCP as above. Vidal Ye MD Gall Bladder Ultrasound 03/04/16 0000 Signed Impressions: Service Date/Time: Friday, March 04, 2016 19:36 - CONCLUSION: 1. Thick-walled gallbladder with some pericholecystic fluid and multiple gallstones in the region of the neck. The findings are suggestive of acute cholecystitis. Clinical correlation is recommended. 2. Fatty liver. 3. Minimal ascites within Polanco's pouch. 4. Poor visualization of the pancreas due to shadowing bowel gas. Odilon Butler MD Cholangiopancreatography MRI 03/04/16 0000 Signed Impressions: Service Date/Time: Friday, March 04, 2016 18:24 - CONCLUSION: 1. Extensive edema throughout the retroperitoneum and pancreas. No abscess or pseudocyst. 2. Tiny layering gallstones within the gallbladder. No discrete common bile duct stone. There is tapering of the common bile duct within the pancreatic head felt to be secondary to the edema within the pancreas. No discrete mass or choledocholithiasis. No intrahepatic or extrahepatic ductal dilatation. Maxwell Hsu Jr., MD Physical Exam GENERAL: This is a well-nourished, well-developed patient, in no apparent distress. SKIN: No rashes, ecchymoses or lesions. Cool and dry. HEAD: Atraumatic. Normocephalic. No temporal or scalp tenderness. EYES: Pupils equal round and reactive. Extraocular motions intact. No scleral icterus. No injection or drainage. ENT: Nose without bleeding, purulent drainage or septal hematoma. Throat without erythema, tonsillar hypertrophy or exudate. Uvula midline. Airway patent. NECK: Trachea midline. No JVD or lymphadenopathy. Supple, nontender, no meningeal signs. CARDIOVASCULAR: Regular rate and rhythm without murmurs, gallops, or rubs. RESPIRATORY: Clear to auscultation. Breath sounds equal bilaterally. No wheezes , rales, or rhonchi. GASTROINTESTINAL: Abdomen soft, tenderness in RUQ and epigastric region. MUSCULOSKELETAL: Extremities without clubbing, cyanosis, or edema. No joint tenderness, effusion, or edema noted. No calf tenderness. Negative Homans sign bilaterally. NEUROLOGICAL: Awake and alert. Grossly non focal Psych: cooperative IV line sites with no e/o infection. Assessment & Plan Remarks SIRS possible Sepsis related vs Pancreatitis related. Severe Pancreatitis with hemorrhage. Acute cholangitis Fever DDX: new infection, need for fungal coverage in abd sepsis, drug fever. UA negative. CXR negative. Recs: Continue Zosyn IV Continue Diflucan oral. If fevers persist will consider switching class of ABX. If that does not help it either then likely pancreatitis related SIRS although lipase is trending down suggesting resolving inflammatory process. Follow cultures Follow clinically. Margo WISE and patient. Cely Ayers MD Mar 09, 2016 14:18
[2016-03-09] MEDS: INSULIN DETEMIR 100 UNITS/ML VIAL SQ SCH (20:40)
[2016-03-10] VITALS (14 sets, daily range): BP systolic 139–166; BP diastolic 62–72; PULSE 70–87; RESP 18–26; TEMP 97.7–101.6; O2SAT 93–99
[2016-03-10] MEDS: PIPERACIL-TAZO 2.25 GM PREMIX 50 ML IV SCH ×5 (00:10→23:50)
[2016-03-10] MEDS: LACTATED RINGER'S 1000 ML INJ 1,000 ML IV SCH ×2 (03:46→15:26)
[2016-03-10] MEDS: CHLORHEXIDINE GLUCONATE 2 % 1 PACK (2 CLOTHS) TOP SCH (04:00)
[2016-03-10 06:11] LABS: BICARBONATE 21.2 MEQ/L (21.0-32.0)
[2016-03-10 06:13] LABS: POTASSIUM 3.9 MEQ/L (3.5-5.1)
[2016-03-10] MEDS: INSULIN NovoLIN REGULAR SUPPLEMENTAL SCALE SQ SCH ×4 (06:53→21:20)
[2016-03-10 08:38] LABS: HEMATOCRIT 28.4 % (35.0-46.0); MEAN CELL VOLUME 86.2 FL (80.0-100.0); MEAN CORPUSCULAR HEMOGLOBIN 28.6 PG (27.0-34.0); MEAN CORPUSCULAR HGB CONC 33.2 % (32.0-36.0); PLATELET COUNT 209 TH/MM3 (150-450); WHITE BLOOD COUNT 22.3 TH/MM3 (4.0-11.0)
[2016-03-10 08:41] LABS: HEMO FLAGS AUTO DIFF
[2016-03-10] MEDS: DOCUSATE SODIUM 100 MG CAP PO SCH ×2 (09:00→21:00)
[2016-03-10] MEDS: HEPARIN SODIUM - SQ 10,000 UNITS/ML VIAL SQ SCH ×2 (09:16→21:20)
[2016-03-10] MEDS: METOPROLOL TARTRATE 50 MG TAB PO SCH ×2 (09:17→21:19)
[2016-03-10] MEDS: PANTOPRAZOLE SODIUM 40 MG VIAL IV SCH (09:18)
[2016-03-10] MEDS: FLUCONAZOLE 100 MG TAB PO SCH (09:18)
[2016-03-10] MEDS: LISINOPRIL 10 MG TAB PO SCH ×2 (09:18→21:19)
[2016-03-10] MEDS: SODIUM CHLORIDE 0.9% FLUSH 5 ML FLUSH IV FLUSH SCH ×2 (09:18→21:19)
[2016-03-10] MEDS: INSULIN DETEMIR 100 UNITS/ML VIAL SQ SCH ×2 (09:19→21:20)
[2016-03-10 10:37] LABS: BANDS 37 % (0-6); METAMYELOCYTES 1 % (0-1); MYELOCYTES 7 % (0-0); NEUTROPHIL # MANUAL DIFF 18.1 TH/MM3 (1.8-7.7); POLYS (SEG NEUTROPHILS) 36 % (16-70); WBC DIFF SAMPLE 100
[2016-03-10 10:38] LABS: ACANTHOCYTES 1+ (NORMAL); PLATELET ESTIMATE SMEAR NORMAL (NORMAL); PLATELET MORPHOLOGY NORMAL (NORMAL); POLYCHROMASIA 2.6 % (0.0-1.9); SCAN/DIFF FINAL DIFF MANUAL; TOXIC GRANULATION 2+ (NORMAL); TOXIC VACUOLATION PRESENT (NONE SEEN)
--- NOTE | 2016-03-10 11:05 | HHI.PR ---
Subjective Remarks Pt very weak today Still with some SOB Pt still receiving po clear liquids per nursing staff. Objective Vitals Vital Signs Date Time Temp Pulse Resp B/P Pulse Ox O2 Delivery O2 Flow Rate FiO2 03/10/16 08:00 99.4 77 21 146/68 97 03/10/16 08:00 77 03/10/16 07:00 97 Nasal Cannula 2.00 03/10/16 06:00 74 03/10/16 04:00 97.7 81 18 166/62 99 03/10/16 04:00 81 03/10/16 02:00 82 03/10/16 00:00 98.0 80 18 145/66 98 03/10/16 00:00 80 03/09/16 22:00 79 03/09/16 20:05 98 Nasal Cannula 2.00 03/09/16 20:00 97.9 81 18 126/59 97 03/09/16 20:00 81 03/09/16 19:00 100 Nasal Cannula 2.00 03/09/16 18:00 81 03/09/16 16:00 98.5 78 19 127/58 97 03/09/16 16:00 78 03/09/16 14:21 21 03/09/16 14:00 80 03/09/16 12:00 99.1 78 24 173/99 93 03/09/16 12:00 78 03/09/16 03/09/16 03/10/16 14:59 22:59 06:59 Intake Total 981 ml 1066 ml 849 ml Output Total 400 ml 1000 ml 650 ml Balance 581 ml 66 ml 199 ml Intake Oral 250 ml 300 ml 240 ml IV Total 710 ml 682 ml 540 ml Tube Feeding 21 ml 84 ml 69 ml Output Urine Total 400 ml 1000 ml 650 ml # Bowel Movements 2 0 1 Result Diagram: 03/10/16 0820 03/10/16 0504 Other Results Laboratory Tests Test 03/09/16 03/09/16 03/09/16 03/10/16 03:24 12:18 12:26 05:04 Total Bilirubin 1.5 MG/DL Direct Bilirubin 0.9 MG/DL Indirect Bilirubin 0.6 MG/DL Aspartate Amino Transf 29 U/L (AST/SGOT) Alanine Aminotransferase 52 U/L (ALT/SGPT) Alkaline Phosphatase 80 U/L Total Protein 6.0 GM/DL Albumin 1.8 GM/DL Lipase 224 U/L Phosphorus Level 2.2 MG/DL Magnesium Level 2.2 MG/DL White Blood Count 19.3 TH/MM3 Red Blood Count 3.72 MIL/MM3 Hemoglobin 10.6 GM/DL Hematocrit 32.3 % Mean Corpuscular Volume 86.9 FL Mean Corpuscular Hemoglobin 28.5 PG Mean Corpuscular Hemoglobin 32.8 % Concent Red Cell Distribution Width 15.0 % Platelet Count 207 TH/MM3 Mean Platelet Volume 9.5 FL Neutrophils (%) (Auto) 77.5 % Lymphocytes (%) (Auto) 10.7 % Monocytes (%) (Auto) 7.9 % Eosinophils (%) (Auto) 3.3 % Basophils (%) (Auto) 0.6 % Neutrophils # (Auto) 14.9 TH/MM3 Lymphocytes # (Auto) 2.1 TH/MM3 Monocytes # (Auto) 1.5 TH/MM3 Eosinophils # (Auto) 0.6 TH/MM3 Basophils # (Auto) 0.1 TH/MM3 CBC Comment AUTO DIFF Differential Total Cells 100 Counted Neutrophils % (Manual) 55 % Band Neutrophils % 11 % Lymphocytes % 11 % Monocytes % 11 % Eosinophils % 2 % Neutrophils # (Manual) 14.5 TH/MM3 Metamyelocytes 1 % Myelocytes 8 % Nucleated Red Blood Cells 1 /100 WBC Differential Comment FINAL DIFF MANUAL Plasma Cells 1 % Toxic Granulation 1+ Toxic Vacuolation PRESENT Platelet Estimate NORMAL Platelet Morphology Comment NORMAL Polychromasia 2.0 % Ovalocytes 1+ Sodium Level 136 MEQ/L Potassium Level 3.9 MEQ/L Chloride Level 105 MEQ/L Carbon Dioxide Level 21.2 MEQ/L Anion Gap 10 MEQ/L Blood Urea Nitrogen 39 MG/DL Creatinine 1.68 MG/DL Estimat Glomerular Filtration 37 ML/MIN Rate Random Glucose 226 MG/DL Calcium Level 9.7 MG/DL Test 03/10/16 08:20 White Blood Count 22.3 TH/MM3 Red Blood Count 3.30 MIL/MM3 Hemoglobin 9.4 GM/DL Hematocrit 28.4 % Mean Corpuscular Volume 86.2 FL Mean Corpuscular Hemoglobin 28.6 PG Mean Corpuscular Hemoglobin 33.2 % Concent Red Cell Distribution Width 15.0 % Platelet Count 209 TH/MM3 Mean Platelet Volume 9.4 FL Neutrophils (%) (Auto) % Lymphocytes (%) (Auto) % Monocytes (%) (Auto) % Eosinophils (%) (Auto) % Basophils (%) (Auto) % Neutrophils # (Auto) TH/MM3 Lymphocytes # (Auto) TH/MM3 Monocytes # (Auto) TH/MM3 Eosinophils # (Auto) TH/MM3 Basophils # (Auto) TH/MM3 CBC Comment AUTO DIFF Differential Total Cells 100 Counted Neutrophils % (Manual) 36 % Band Neutrophils % 37 % Lymphocytes % 9 % Monocytes % 10 % Neutrophils # (Manual) 18.1 TH/MM3 Metamyelocytes 1 % Myelocytes 7 % Differential Comment FINAL DIFF MANUAL Toxic Granulation 2+ Toxic Vacuolation PRESENT Platelet Estimate NORMAL Platelet Morphology Comment NORMAL Polychromasia 2.6 % Acanthocytes 1+ Imaging Last Impressions Chest X-Ray 03/09/16 0000 Signed Impressions: Service Date/Time: February 13:11 - CONCLUSION: Left lower lobe atelectasis versus infiltrate is unchanged. Maxwell Hsu Jr., MD Abdomen X-Ray 03/09/16 0000 Signed Impressions: Service Date/Time: February 11:11 - CONCLUSION: 1. The tip of the weighted feeding tube is located in the descending portion of the duodenum. Scar Resendez MD Abdomen/Pelvis CT 03/08/16 0000 Signed Impressions: Service Date/Time: Tuesday, March 08, 2016 15:28 - CONCLUSION: Severe changes of pancreatitis, potentially with areas of hemorrhagic conversion. Darrian Engel MD GI Procedure 03/05/16 0000 Signed Impressions: Service Date/Time: Friday, March 04, 2016 23:02 - CONCLUSION: ERCP as above. Vidal Ye MD Gall Bladder Ultrasound 03/04/16 0000 Signed Impressions: Service Date/Time: Friday, March 04, 2016 19:36 - CONCLUSION: 1. Thick-walled gallbladder with some pericholecystic fluid and multiple gallstones in the region of the neck. The findings are suggestive of acute cholecystitis. Clinical correlation is recommended. 2. Fatty liver. 3. Minimal ascites within Polanco's pouch. 4. Poor visualization of the pancreas due to shadowing bowel gas. Odilon Butler MD Cholangiopancreatography MRI 03/04/16 0000 Signed Impressions: Service Date/Time: Friday, March 04, 2016 18:24 - CONCLUSION: 1. Extensive edema throughout the retroperitoneum and pancreas. No abscess or pseudocyst. 2. Tiny layering gallstones within the gallbladder. No discrete common bile duct stone. There is tapering of the common bile duct within the pancreatic head felt to be secondary to the edema within the pancreas. No discrete mass or choledocholithiasis. No intrahepatic or extrahepatic ductal dilatation. Maxwell Hsu Jr., MD Objective Remarks General: NAD, AAOx3 Chest: diffuse wheeze, poor air movement Cardiac: Regular Abd: soft, +BS x 4 Ext: Bilateral LE pitting edema A/P Problem List: (1) Severe sepsis with acute organ dysfunction Status: Acute Plan: - Pt admitted with sudden onset of abd pain, nausea/vomiting on 03/04/16 - Labs at admission noted elevated WBC count 16.8 - LFTs were elevated at TBili 4.0, AST 472, ALT 378, AlkPhos 154 with Lipase of 7635 - Also noted to have an elevated Lactic acid of 4.5 and was admitted to ICU - MRCP (03/04) --> Extensive edema throughout the retroperitoneum and pancreas. No abscess or pseudocyst. Tiny layering gallstones within the gallbladder. No discrete common bile duct stone. There is tapering of the common bile duct within the pancreatic head felt to be secondary to the edema within the pancreas. No discrete mass or choledocholithiasis. No intrahepatic or extrahepatic ductal dilatation. - GB US (03/04) --> Thick-walled gallbladder with some pericholecystic fluid and multiple gallstones in the region of the neck. The findings are suggestive of acute cholecystitis. Fatty liver. Minimal ascites within Polanco's pouch. - Pt was seen by GI and underwent ERCP with stent placement in the CBD on - General Surgery is following - LFTs continue to improve - Lipase 7155 (03/07/16) --> 449 (03/08/16) --> 224 (03/09) - Pt had been having fevers and CT Abd/pelvis was repeated on 03/08 which noted severe changes of pancreatitis, potentially with areas of hemorrhagic conversion. - Pt made NPO and had Dobbhoff placed for post-pyloric TF - WBC count increased today to 22.3 - Blood cultures (03/04) with no growth x 5 days - Repeat blood cultures (03/07) wth no growth to date - Cont. Zosyn - Diflucan 100mg po daily added on 03/08 - Appreciate input from ID - Pt had more SOB yesterday and was audibly wheezing on exam - CXR (03/09) --> Left lower lobe atelectasis versus infiltrate is unchanged. - Pts weight had increased from 121Kg to 133 Kg on 03/09. - IVF with LR were decreased to @85mL/hr - Pt was given Lasix 80mg IV x one dose on 03/09. - Pt UOP was 2049 and weight decreased to 130.2kg - DVT prophylaxis (2) Pancreatitis, acute Status: Acute Plan: - See above. (3) Cholangitis Status: Acute Plan: - See above (4) Ventricular tachycardia (paroxysmal) Status: Acute Plan: - Cardiology consulted on 03/08 due to pt having a two runs of ventricular tachycardia on 03/07 which was felt to be secondary to her acute illness. - Pt was started on Metoprolol 50mg Q12H - No further issues with dysrhythmia noted - 2D echo (03/08) - Estimated EF 55-60% - Mild tricuspid regurgitation - PA peak pressure 39mmHg (5) HTN (hypertension) Status: Chronic Plan: - Cont. Metoprolol 50mg BID - Cont. Lisinopril 10mg BID (6) Renal insufficiency Status: Acute Plan: - Renal function worse today with Cr 1.68/BUN 39, GFR 37 - Monitor labs - See above (7) Leukocytosis Status: Acute Plan: - See above Assessment and Plan Patient examined. Assessment and plan formulated with Zita Plummer PA-C. I agree with the above. Zita Plummer Mar 10, 2016 11:05 Yandel Stewart DO Mar 12, 2016 14:59
--- NOTE | 2016-03-10 12:41 | HHI.GIFU ---
Subjective Remarks Patient is resting in bed feeling weak, denies nausea, vomiting or abd pain. Objective Vitals I&O Vital Signs Date Time Temp Pulse Resp B/P Pulse Ox O2 Delivery O2 Flow Rate FiO2 03/10/16 10:00 87 03/10/16 08:00 99.4 77 21 146/68 97 03/10/16 08:00 77 03/10/16 07:00 97 Nasal Cannula 2.00 03/10/16 06:00 74 03/10/16 04:00 97.7 81 18 166/62 99 03/10/16 04:00 81 03/10/16 02:00 82 03/10/16 00:00 98.0 80 18 145/66 98 03/10/16 00:00 80 03/09/16 22:00 79 03/09/16 20:05 98 Nasal Cannula 2.00 03/09/16 20:00 97.9 81 18 126/59 97 03/09/16 20:00 81 03/09/16 19:00 100 Nasal Cannula 2.00 03/09/16 18:00 81 03/09/16 16:00 98.5 78 19 127/58 97 03/09/16 16:00 78 03/09/16 14:21 21 03/09/16 14:00 80 I/O 03/09/16 03/09/16 03/09/16 03/10/16 03/10/16 03/10/16 06:59 14:59 22:59 06:59 14:59 22:59 Intake Total 120 ml 981 ml 1066 ml 849 ml Output Total 260 ml 400 ml 1000 ml 650 ml Balance -140 ml 581 ml 66 ml 199 ml Intake Oral 120 ml 250 ml 300 ml 240 ml IV Total 710 ml 682 ml 540 ml Tube Feeding 21 ml 84 ml 69 ml Output Urine Total 260 ml 400 ml 1000 ml 650 ml # Bowel Movements 4 2 0 1 Laboratory Laboratory Tests Test 03/10/16 03/10/16 05:04 08:20 Sodium Level 136 Potassium Level 3.9 Chloride Level 105 Carbon Dioxide Level 21.2 Anion Gap 10 Blood Urea Nitrogen 39 Creatinine 1.68 Estimat Glomerular Filtration 37 Rate Random Glucose 226 Calcium Level 9.7 White Blood Count 22.3 Red Blood Count 3.30 Hemoglobin 9.4 Hematocrit 28.4 Mean Corpuscular Volume 86.2 Mean Corpuscular Hemoglobin 28.6 Mean Corpuscular Hemoglobin 33.2 Concent Red Cell Distribution Width 15.0 Platelet Count 209 Mean Platelet Volume 9.4 Neutrophils (%) (Auto) Lymphocytes (%) (Auto) Monocytes (%) (Auto) Eosinophils (%) (Auto) Basophils (%) (Auto) Neutrophils # (Auto) Lymphocytes # (Auto) Monocytes # (Auto) Eosinophils # (Auto) Basophils # (Auto) CBC Comment AUTO DIFF Differential Total Cells 100 Counted Neutrophils % (Manual) 36 Band Neutrophils % 37 Lymphocytes % 9 Monocytes % 10 Neutrophils # (Manual) 18.1 Metamyelocytes 1 Myelocytes 7 Differential Comment FINAL DIFF MANUAL Toxic Granulation 2+ Toxic Vacuolation PRESENT Platelet Estimate NORMAL Platelet Morphology Comment NORMAL Polychromasia 2.6 Acanthocytes 1+ Date/Time Procedure Status Source Growth 03/07/16 17:15 Aerobic Blood Culture - Preliminary Resulted Blood Peripheral NO GROWTH IN 3 DAYS 03/07/16 17:15 Anaerobic Blood Culture - Preliminary Resulted Blood Peripheral NO GROWTH IN 3 DAYS Imaging Last Impressions Chest X-Ray 03/09/16 0000 Signed Impressions: Service Date/Time: February 13:11 - CONCLUSION: Left lower lobe atelectasis versus infiltrate is unchanged. Maxwell Hsu Jr., MD Abdomen X-Ray 03/09/16 0000 Signed Impressions: Service Date/Time: February 11:11 - CONCLUSION: 1. The tip of the weighted feeding tube is located in the descending portion of the duodenum. Scar Resendez MD Abdomen/Pelvis CT 03/08/16 0000 Signed Impressions: Service Date/Time: Tuesday, March 08, 2016 15:28 - CONCLUSION: Severe changes of pancreatitis, potentially with areas of hemorrhagic conversion. Darrian Engel MD GI Procedure 03/05/16 0000 Signed Impressions: Service Date/Time: Friday, March 04, 2016 23:02 - CONCLUSION: ERCP as above. Vidal Ye MD Gall Bladder Ultrasound 03/04/16 0000 Signed Impressions: Service Date/Time: Friday, March 04, 2016 19:36 - CONCLUSION: 1. Thick-walled gallbladder with some pericholecystic fluid and multiple gallstones in the region of the neck. The findings are suggestive of acute cholecystitis. Clinical correlation is recommended. 2. Fatty liver. 3. Minimal ascites within Polanco's pouch. 4. Poor visualization of the pancreas due to shadowing bowel gas. Odilon Butler MD Cholangiopancreatography MRI 03/04/16 0000 Signed Impressions: Service Date/Time: Friday, March 04, 2016 18:24 - CONCLUSION: 1. Extensive edema throughout the retroperitoneum and pancreas. No abscess or pseudocyst. 2. Tiny layering gallstones within the gallbladder. No discrete common bile duct stone. There is tapering of the common bile duct within the pancreatic head felt to be secondary to the edema within the pancreas. No discrete mass or choledocholithiasis. No intrahepatic or extrahepatic ductal dilatation. Maxwell Hsu Jr., MD Physical Exam NECK: Neck is supple, no JVD, no lymphadenopathy. CHEST: Chest is clear to auscultation and percussion. CARDIAC: Regular rate and rhythm with no murmur gallop or rubs. ABDOMEN: Non tender, soft, active bowel sound, blue discoloration to bilateral lower abd EXTREMITIES: No clubbing, cyanosis, or edema. SKIN: Normal; no rash; no jaundice. Assessment and Plan Plan ASSESSMENT: - Acute pancreatitis, lipase normalized, CT (03/08/16) showed severe peripancreatic edema and retroperitoneal edema, potentially with areas of hemorrhagic conversion. - Acute cholecystitis- GS on the case, holding off on surgery due to leukocytosis, CT(03/08/16) showed diffusely edematous with prominent inflammatory change throughout pancreatic bed ans in the para renal spaces bilaterally extending into the pelvis. 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 CT () showed severe peripancreatic edema and retroperitoneal edema, potentially with areas of hemorrhagic conversion.Dobbhoff inserted for post pyloric feedings - possible hemorrhage- patient on Heparin, blue discoloration to bilateral lower abd, hgb 9.4 Recommendations - Glucerna to rate of 50 per dietary recommendation through Dobbhoff - NPO - Consider discontinuing heparin - IV antibiotics - GS on the case - ERCP in 3 months for stent removal - Supportive care - Further recommendations to follow - Patient seen and examined by Dr. Stroud and myself and this note is written on his behalf. Otis Barreto Mar 10, 2016 12:41
[2016-03-10] MEDS: ACETAMINOPHEN 325 MG TAB PO PRN (15:43)
--- NOTE | 2016-03-10 16:40 | HHI.PR ---
Subjective Subjective Notes Clinically she continues to do well. Tolerating post pyloric tube feeding at 30cc/h. Denies abdominal pain. Objective Vitals/I&O Vital Signs Date Time Temp Pulse Resp B/P Pulse Ox O2 Delivery O2 Flow Rate FiO2 03/10/16 14:00 86 03/10/16 12:00 100.0 26 156/72 98 03/10/16 09:18 Nasal Cannula 2.00 Labs Laboratory Tests Test 03/10/16 03/10/16 05:04 08:20 Sodium Level 136 Potassium Level 3.9 Chloride Level 105 Carbon Dioxide Level 21.2 Anion Gap 10 Blood Urea Nitrogen 39 Creatinine 1.68 Estimat Glomerular Filtration 37 Rate Random Glucose 226 Calcium Level 9.7 White Blood Count 22.3 Red Blood Count 3.30 Hemoglobin 9.4 Hematocrit 28.4 Mean Corpuscular Volume 86.2 Mean Corpuscular Hemoglobin 28.6 Mean Corpuscular Hemoglobin 33.2 Concent Red Cell Distribution Width 15.0 Platelet Count 209 Mean Platelet Volume 9.4 Neutrophils (%) (Auto) Lymphocytes (%) (Auto) Monocytes (%) (Auto) Eosinophils (%) (Auto) Basophils (%) (Auto) Neutrophils # (Auto) Lymphocytes # (Auto) Monocytes # (Auto) Eosinophils # (Auto) Basophils # (Auto) CBC Comment AUTO DIFF Differential Total Cells 100 Counted Neutrophils % (Manual) 36 Band Neutrophils % 37 Lymphocytes % 9 Monocytes % 10 Neutrophils # (Manual) 18.1 Metamyelocytes 1 Myelocytes 7 Differential Comment FINAL DIFF MANUAL Toxic Granulation 2+ Toxic Vacuolation PRESENT Platelet Estimate NORMAL Platelet Morphology Comment NORMAL Polychromasia 2.6 Acanthocytes 1+ Date/Time Procedure Status Source Growth 03/07/16 17:15 Aerobic Blood Culture - Preliminary Resulted Blood Peripheral NO GROWTH IN 3 DAYS 03/07/16 17:15 Anaerobic Blood Culture - Preliminary Resulted Blood Peripheral NO GROWTH IN 3 DAYS Radiology Last Impressions GI Procedure 03/05/16 0000 Signed Impressions: Service Date/Time: Friday, March 04, 2016 23:02 - CONCLUSION: ERCP as above. Vidal Ye MD Chest X-Ray 03/04/16 1626 Signed Impressions: Service Date/Time: Friday, March 04, 2016 16:52 - CONCLUSION: 1. Mild cardiomegaly. 2. No acute focal pulmonary infiltrate or pulmonary vascular congestion. 3. Mild elevation of right hemidiaphragm. Odilon Butler MD Gall Bladder Ultrasound 03/04/16 0000 Signed Impressions: Service Date/Time: Friday, March 04, 2016 19:36 - CONCLUSION: 1. Thick-walled gallbladder with some pericholecystic fluid and multiple gallstones in the region of the neck. The findings are suggestive of acute cholecystitis. Clinical correlation is recommended. 2. Fatty liver. 3. Minimal ascites within Polanco's pouch. 4. Poor visualization of the pancreas due to shadowing bowel gas. Odilon Butler MD Cholangiopancreatography MRI 03/04/16 0000 Signed Impressions: Service Date/Time: Friday, March 04, 2016 18:24 - CONCLUSION: 1. Extensive edema throughout the retroperitoneum and pancreas. No abscess or pseudocyst. 2. Tiny layering gallstones within the gallbladder. No discrete common bile duct stone. There is tapering of the common bile duct within the pancreatic head felt to be secondary to the edema within the pancreas. No discrete mass or choledocholithiasis. No intrahepatic or extrahepatic ductal dilatation. Maxwell Hsu Jr., MD Narrative Exam Awake and alert, no distress CV: RRR Abd: Soft, nontender A/P Assessment and Plan 66 yo F with biliary obstruction secondary to pancreatic head edema s/p ERCP with stent, gallstone pancreatitis, acute cholecystitis. I think she likely has hemorrhagic pancreatitis. Heparin is on hold. Hemoglobin went down slightly to 9.4 today. Continue to monitor. Continue enteral feeding at this time. Brian Ceballos MD Mar 10, 2016 16:40
[2016-03-10] MEDS: HYDROmorphone HCL PF 1 MG/ML VIAL IV PRN (21:28)
[2016-03-11] VITALS (14 sets, daily range): BP systolic 132–176; BP diastolic 60–91; PULSE 75–112; RESP 16–37; TEMP 98.3–100.1; O2SAT 92–100
[2016-03-11] MEDS: CHLORHEXIDINE GLUCONATE 2 % 1 PACK (2 CLOTHS) TOP SCH (00:21)
[2016-03-11] MEDS: LACTATED RINGER'S 1000 ML INJ 1,000 ML IV SCH ×2 (01:14→14:33)
[2016-03-11 04:44] LABS: AUTOMATED NEUTROPHIL # 22.7 TH/MM3 (1.8-7.7); BASOPHIL # 0.2 TH/MM3 (0-0.2); BASOPHIL % 0.6 % (0.0-2.0); EOSINOPHIL # 0.3 TH/MM3 (0-0.4); EOSINOPHIL % 1.1 % (0.0-4.0); HEMATOCRIT 30.9 % (35.0-46.0); LYMPH % 3.6 % (9.0-44.0); LYMPHOCYTE # 0.9 TH/MM3 (1.0-4.8); MEAN CELL VOLUME 86.2 FL (80.0-100.0); MEAN CORPUSCULAR HEMOGLOBIN 28.1 PG (27.0-34.0); MEAN CORPUSCULAR HGB CONC 32.6 % (32.0-36.0); MONO % 6.9 % (0.0-8.0); NEUT % 87.8 % (16.0-70.0); PLATELET COUNT 222 TH/MM3 (150-450); RED BLOOD COUNT 3.58 MIL/MM3 (4.00-5.30); RED CELL DISTRIBUTION WIDTH 15.1 % (11.6-17.2); WHITE BLOOD COUNT 25.8 TH/MM3 (4.0-11.0)
[2016-03-11 04:52] LABS: HEMO FLAGS AUTO DIFF
[2016-03-11 05:06] LABS: ALT (GPT) 34 U/L (10-53); ANION GAP 9 MEQ/L (5-15); AST (GOT) 39 U/L (15-37); BICARBONATE 24.9 MEQ/L (21.0-32.0); BLOOD UREA NITROGEN 41 MG/DL (7-18); CHLORIDE 106 MEQ/L (98-107); GLOMERULAR FILTRATION RATE 36 ML/MIN (>89); POTASSIUM 3.3 MEQ/L (3.5-5.1); SODIUM (NA) 140 MEQ/L (136-145)
[2016-03-11 05:10] LABS: ALKALINE PHOSPHATASE 103 U/L (45-117); TOTAL BILIRUBIN ADULT 0.8 MG/DL (0.2-1.0)
[2016-03-11] MEDS: POTASSIUM CHLOR 20 MEQ PREMIX 100 ML IV PRN (05:15)
[2016-03-11 05:25] LABS: BANDS 33 % (0-6); EOSINOPHILS 1 % (0-4); METAMYELOCYTES 2 % (0-1); MYELOCYTES 1 % (0-0); NEUTROPHIL # MANUAL DIFF 22.4 TH/MM3 (1.8-7.7); PLATELET ESTIMATE SMEAR NORMAL (NORMAL); PLATELET MORPHOLOGY ENLARGED (NORMAL); POLYS (SEG NEUTROPHILS) 51 % (16-70); SCAN/DIFF FINAL DIFF MANUAL; WBC DIFF SAMPLE 100
[2016-03-11 05:26] LABS: TOXIC GRANULATION 1+ (NORMAL)
[2016-03-11] MEDS: INSULIN NovoLIN REGULAR SUPPLEMENTAL SCALE SQ SCH ×4 (05:54→21:25)
[2016-03-11] MEDS: PIPERACIL-TAZO 2.25 GM PREMIX 50 ML IV SCH ×4 (05:54→23:16)
[2016-03-11] MEDS: PANTOPRAZOLE SODIUM 40 MG VIAL IV SCH (07:54)
[2016-03-11] MEDS: SODIUM CHLORIDE 0.9% FLUSH 5 ML FLUSH IV FLUSH SCH ×2 (07:54→20:56)
[2016-03-11] MEDS: INSULIN DETEMIR 100 UNITS/ML VIAL SQ SCH ×2 (07:55→20:55)
[2016-03-11] MEDS: HEPARIN SODIUM - SQ 10,000 UNITS/ML VIAL SQ SCH ×2 (07:55→20:55)
[2016-03-11] MEDS: DOCUSATE SODIUM 100 MG CAP PO SCH ×2 (07:56→21:00)
[2016-03-11] MEDS: HYDROmorphone HCL PF 1 MG/ML VIAL IV PRN ×3 (07:56→21:03)
[2016-03-11] MEDS: FLUCONAZOLE 100 MG TAB PO SCH (07:57)
[2016-03-11] MEDS: METOPROLOL TARTRATE 50 MG TAB PO SCH ×2 (09:00→20:56)
[2016-03-11] MEDS: LISINOPRIL 10 MG TAB PO SCH ×2 (09:49→20:55)
--- NOTE | 2016-03-11 10:25 | HHI.PR ---
Subjective Subjective Notes Tolerating post pyloric feeding. No complaints. Denies nausea or abdominal pain. Objective Vitals/I&O Vital Signs Date Time Temp Pulse Resp B/P Pulse Ox O2 Delivery O2 Flow Rate FiO2 03/11/16 08:30 96 Nasal Cannula 2.00 03/11/16 08:00 98.5 97 19 176/91 Labs Laboratory Tests Test 03/11/16 03:45 White Blood Count 25.8 Red Blood Count 3.58 Hemoglobin 10.1 Hematocrit 30.9 Mean Corpuscular Volume 86.2 Mean Corpuscular Hemoglobin 28.1 Mean Corpuscular Hemoglobin 32.6 Concent Red Cell Distribution Width 15.1 Platelet Count 222 Mean Platelet Volume 9.8 Neutrophils (%) (Auto) 87.8 Lymphocytes (%) (Auto) 3.6 Monocytes (%) (Auto) 6.9 Eosinophils (%) (Auto) 1.1 Basophils (%) (Auto) 0.6 Neutrophils # (Auto) 22.7 Lymphocytes # (Auto) 0.9 Monocytes # (Auto) 1.8 Eosinophils # (Auto) 0.3 Basophils # (Auto) 0.2 CBC Comment AUTO DIFF Differential Total Cells 100 Counted Neutrophils % (Manual) 51 Band Neutrophils % 33 Lymphocytes % 6 Monocytes % 6 Eosinophils % 1 Neutrophils # (Manual) 22.4 Metamyelocytes 2 Myelocytes 1 Differential Comment FINAL DIFF MANUAL Toxic Granulation 1+ Platelet Estimate NORMAL Platelet Morphology Comment ENLARGED Sodium Level 140 Potassium Level 3.3 Chloride Level 106 Carbon Dioxide Level 24.9 Anion Gap 9 Blood Urea Nitrogen 41 Creatinine 1.74 Estimat Glomerular Filtration 36 Rate Random Glucose 225 Calcium Level 9.9 Magnesium Level 2.0 Total Bilirubin 0.8 Aspartate Amino Transf 39 (AST/SGOT) Alanine Aminotransferase 34 (ALT/SGPT) Alkaline Phosphatase 103 Total Protein 6.0 Albumin 1.6 Date/Time Procedure Status Source Growth 03/07/16 17:15 Aerobic Blood Culture - Preliminary Resulted Blood Peripheral NO GROWTH IN 3 DAYS 03/07/16 17:15 Anaerobic Blood Culture - Preliminary Resulted Blood Peripheral NO GROWTH IN 3 DAYS Radiology Last Impressions GI Procedure 03/05/16 0000 Signed Impressions: Service Date/Time: Friday, March 04, 2016 23:02 - CONCLUSION: ERCP as above. Vidal Ye MD Chest X-Ray 03/04/16 1626 Signed Impressions: Service Date/Time: Friday, March 04, 2016 16:52 - CONCLUSION: 1. Mild cardiomegaly. 2. No acute focal pulmonary infiltrate or pulmonary vascular congestion. 3. Mild elevation of right hemidiaphragm. Odilon Butler MD Gall Bladder Ultrasound 03/04/16 0000 Signed Impressions: Service Date/Time: Friday, March 04, 2016 19:36 - CONCLUSION: 1. Thick-walled gallbladder with some pericholecystic fluid and multiple gallstones in the region of the neck. The findings are suggestive of acute cholecystitis. Clinical correlation is recommended. 2. Fatty liver. 3. Minimal ascites within Polanco's pouch. 4. Poor visualization of the pancreas due to shadowing bowel gas. Odilon Butler MD Cholangiopancreatography MRI 03/04/16 0000 Signed Impressions: Service Date/Time: Friday, March 04, 2016 18:24 - CONCLUSION: 1. Extensive edema throughout the retroperitoneum and pancreas. No abscess or pseudocyst. 2. Tiny layering gallstones within the gallbladder. No discrete common bile duct stone. There is tapering of the common bile duct within the pancreatic head felt to be secondary to the edema within the pancreas. No discrete mass or choledocholithiasis. No intrahepatic or extrahepatic ductal dilatation. Maxwell Hsu Jr., MD Narrative Exam Awake and alert, no distress CV: RRR Abd: Soft, moderate upper abdominal ttp A/P Assessment and Plan 66 yo F with biliary obstruction secondary to pancreatic head edema s/p ERCP with stent, gallstone pancreatitis, acute cholecystitis. Hgb stable. Tolerating enteral feeding. WBC continues to climb. ? secondary to SIRS from pancreatitis vs infectious process, although CT a/p recently did not show evidence of abdominal infection. Brian Ceballos MD Mar 11, 2016 10:25
--- NOTE | 2016-03-11 13:18 | HHI.PR ---
Subjective Remarks No new complaints. Objective Vitals Vital Signs Date Time Temp Pulse Resp B/P Pulse Ox O2 Delivery O2 Flow Rate FiO2 03/11/16 12:00 98.3 82 25 152/69 95 03/11/16 12:00 82 03/11/16 10:00 82 03/11/16 08:30 96 Nasal Cannula 2.00 03/11/16 08:00 98.5 97 19 176/91 95 03/11/16 08:00 97 03/11/16 07:00 98 Nasal Cannula 2.00 03/11/16 06:00 93 03/11/16 04:00 99.0 84 21 151/70 98 03/11/16 04:00 86 03/11/16 02:00 83 03/11/16 00:00 75 03/11/16 00:00 98.9 75 16 132/60 100 03/10/16 22:00 70 03/10/16 20:52 96 Nasal Cannula 2.00 03/10/16 20:00 80 03/10/16 20:00 Nasal Cannula 2.00 Humidified 03/10/16 20:00 99.8 80 24 152/70 96 03/10/16 18:00 81 03/10/16 16:00 84 03/10/16 16:00 101.6 84 23 139/62 96 03/10/16 14:00 86 03/10/16 03/10/16 03/11/16 15:00 23:00 07:00 Intake Total 681 ml 694 ml 748 ml Output Total 400 ml 400 ml 300 ml Balance 281 ml 294 ml 448 ml Intake Oral 240 ml 0 ml 0 ml IV Total 339 ml 437 ml 469 ml Tube Feeding 102 ml 227 ml 259 ml Other 30 ml 20 ml Output Urine Total 400 ml 400 ml 300 ml # Bowel Movements 1 1 1 Result Diagram: 03/11/16 0345 03/11/16 0345 Imaging Last Impressions Chest X-Ray 03/09/16 0000 Signed Impressions: Service Date/Time: February 13:11 - CONCLUSION: Left lower lobe atelectasis versus infiltrate is unchanged. Maxwell Hsu Jr., MD Abdomen X-Ray 03/09/16 0000 Signed Impressions: Service Date/Time: February 11:11 - CONCLUSION: 1. The tip of the weighted feeding tube is located in the descending portion of the duodenum. Scar Resendez MD Abdomen/Pelvis CT 03/08/16 0000 Signed Impressions: Service Date/Time: Tuesday, March 08, 2016 15:28 - CONCLUSION: Severe changes of pancreatitis, potentially with areas of hemorrhagic conversion. Darrian Engel MD GI Procedure 03/05/16 0000 Signed Impressions: Service Date/Time: Friday, March 04, 2016 23:02 - CONCLUSION: ERCP as above. Vidal Ye MD Gall Bladder Ultrasound 03/04/16 0000 Signed Impressions: Service Date/Time: Friday, March 04, 2016 19:36 - CONCLUSION: 1. Thick-walled gallbladder with some pericholecystic fluid and multiple gallstones in the region of the neck. The findings are suggestive of acute cholecystitis. Clinical correlation is recommended. 2. Fatty liver. 3. Minimal ascites within Polanco's pouch. 4. Poor visualization of the pancreas due to shadowing bowel gas. Odilon Butler MD Cholangiopancreatography MRI 03/04/16 0000 Signed Impressions: Service Date/Time: Friday, March 04, 2016 18:24 - CONCLUSION: 1. Extensive edema throughout the retroperitoneum and pancreas. No abscess or pseudocyst. 2. Tiny layering gallstones within the gallbladder. No discrete common bile duct stone. There is tapering of the common bile duct within the pancreatic head felt to be secondary to the edema within the pancreas. No discrete mass or choledocholithiasis. No intrahepatic or extrahepatic ductal dilatation. Maxwell Hsu Jr., MD Objective Remarks General: NAD, AAOx3 Chest: diffuse wheeze, poor air movement Cardiac: Regular Abd: soft, +BS x 4 Ext: Bilateral LE pitting edema A/P Problem List: (1) Severe sepsis with acute organ dysfunction Status: Acute Plan: - comgmt with General Surgery, ID, and GI - Pt admitted with sudden onset of abd pain, nausea/vomiting on 03/04/16 - Labs at admission noted elevated WBC count 16.8 - LFTs were elevated at TBili 4.0, AST 472, ALT 378, AlkPhos 154 with Lipase of 7635 - Also noted to have an elevated Lactic acid of 4.5 and was admitted to ICU - MRCP (03/04) --> Extensive edema throughout the retroperitoneum and pancreas. No abscess or pseudocyst. Tiny layering gallstones within the gallbladder. No discrete common bile duct stone. There is tapering of the common bile duct within the pancreatic head felt to be secondary to the edema within the pancreas. No discrete mass or choledocholithiasis. No intrahepatic or extrahepatic ductal dilatation. - GB US (03/04) --> Thick-walled gallbladder with some pericholecystic fluid and multiple gallstones in the region of the neck. The findings are suggestive of acute cholecystitis. Fatty liver. Minimal ascites within Polanco's pouch. - Pt was seen by GI and underwent ERCP with stent placement in the CBD on - LFTs nearly normalized - Tmax 101.6F 4PM 03/10/16 - Lipase 7155 (03/07/16) --> 449 (03/08/16) --> 224 (03/09) - repeat CT Abd/pelvis (03/08/16) severe pancreatitis, potentially with areas of hemorrhagic conversion. - Pt made NPO and had Dobbhoff placed for post-pyloric TF - WBC count increased today to 25,8 - Blood cultures (03/04) with no growth x 5 days - Repeat blood cultures (03/07) with no growth at 4d - Cont. Zosyn - Diflucan 100mg po daily added on 03/08 - Pts weight had increased from 121Kg to 133 Kg on 03/09. - IVF with LR were decreased to @85mL/hr - Pt was given Lasix 80mg IV x one dose on 03/09. - Pt UOP was 0 and weight decreased to 130.2kg - DVT prophylaxis (2) Pancreatitis, acute Status: Acute Plan: - See above. (3) Cholangitis Status: Acute Plan: - See above (4) Ventricular tachycardia (paroxysmal) Status: Acute Plan: - Cardiology consulted on 03/08 due to pt having a two runs of ventricular tachycardia on 03/07 which was felt to be secondary to her acute illness. - Pt was started on Metoprolol 50mg Q12H - No further issues with dysrhythmia noted - 2D echo (03/08) - Estimated EF 55-60% - Mild tricuspid regurgitation - PA peak pressure 39mmHg (5) HTN (hypertension) Status: Chronic Plan: - Cont. Metoprolol 50mg BID - Cont. Lisinopril 10mg BID (6) Renal insufficiency Status: Acute Plan: - Renal function worse today with Cr 1.68/BUN 39, GFR 37 - Monitor labs - See above (7) Leukocytosis Status: Acute Plan: - See above Yandel Stewart DO Mar 11, 2016 13:18
[2016-03-11] MEDS: hydrALAZINE HCL 20 MG/ML VIAL IV PUSH PRN (17:02)
[2016-03-12] VITALS (14 sets, daily range): BP systolic 108–171; BP diastolic 53–88; PULSE 68–116; RESP 21–28; TEMP 98.6–99.9; O2SAT 92–96
[2016-03-12] MEDS: ACETAMINOPHEN/HYDROcodone 325 MG/5 MG TAB PO PRN (01:19)
[2016-03-12] MEDS: LACTATED RINGER'S 1000 ML INJ 1,000 ML IV SCH ×3 (02:50→21:25)
[2016-03-12] MEDS: CHLORHEXIDINE GLUCONATE 2 % 1 PACK (2 CLOTHS) TOP SCH (04:00)
[2016-03-12] MEDS: HYDROmorphone HCL PF 1 MG/ML VIAL IV PRN ×5 (04:01→22:32)
[2016-03-12 04:34] LABS: HEMATOCRIT 29.1 % (35.0-46.0); MEAN CELL VOLUME 86.8 FL (80.0-100.0); MEAN CORPUSCULAR HEMOGLOBIN 27.9 PG (27.0-34.0); MEAN CORPUSCULAR HGB CONC 32.2 % (32.0-36.0); PLATELET COUNT 277 TH/MM3 (150-450); RED BLOOD COUNT 3.35 MIL/MM3 (4.00-5.30); RED CELL DISTRIBUTION WIDTH 15.6 % (11.6-17.2); WHITE BLOOD COUNT 27.6 TH/MM3 (4.0-11.0)
[2016-03-12 04:40] LABS: HEMO FLAGS AUTO DIFF
[2016-03-12 04:43] LABS: BICARBONATE 22.4 MEQ/L (21.0-32.0); MAGNESIUM 2.1 MG/DL (1.5-2.5); POTASSIUM 3.9 MEQ/L (3.5-5.1)
[2016-03-12 05:41] LABS: BANDS 7 % (0-6); EOSINOPHILS 3 % (0-4); METAMYELOCYTES 1 % (0-1); MYELOCYTES 2 % (0-0); NEUTROPHIL # MANUAL DIFF 25.4 TH/MM3 (1.8-7.7); POLYS (SEG NEUTROPHILS) 82 % (16-70); WBC DIFF SAMPLE 100
[2016-03-12 05:42] LABS: KERATOCYTES 1+ (NORMAL); PLATELET ESTIMATE SMEAR NORMAL (NORMAL); PLATELET MORPHOLOGY NORMAL (NORMAL); SCAN/DIFF FINAL DIFF MANUAL
[2016-03-12] MEDS: PIPERACIL-TAZO 2.25 GM PREMIX 50 ML IV SCH ×3 (06:23→17:35)
[2016-03-12] MEDS: INSULIN NovoLIN REGULAR SUPPLEMENTAL SCALE SQ SCH ×4 (06:52→21:28)
[2016-03-12] MEDS: FLUCONAZOLE 100 MG TAB PO SCH (07:57)
[2016-03-12] MEDS: LISINOPRIL 10 MG TAB PO SCH (07:57)
[2016-03-12] MEDS: HEPARIN SODIUM - SQ 10,000 UNITS/ML VIAL SQ SCH ×2 (07:57→21:26)
[2016-03-12] MEDS: PANTOPRAZOLE SODIUM 40 MG VIAL IV SCH (07:57)
[2016-03-12] MEDS: INSULIN DETEMIR 100 UNITS/ML VIAL SQ SCH ×2 (07:58→21:27)
[2016-03-12] MEDS: METOPROLOL TARTRATE 50 MG TAB PO SCH ×2 (07:58→21:26)
[2016-03-12] MEDS: DOCUSATE SODIUM 100 MG CAP PO SCH ×2 (07:58→21:26)
[2016-03-12] MEDS: SODIUM CHLORIDE 0.9% FLUSH 5 ML FLUSH IV FLUSH SCH ×2 (08:52→21:26)
--- NOTE | 2016-03-12 09:51 | HHI.PR ---
Subjective Subjective Notes Abdomen is more sore today. Continues to tolerate enteral feeding. Objective Vitals/I&O Vital Signs Date Time Temp Pulse Resp B/P Pulse Ox O2 Delivery O2 Flow Rate FiO2 03/12/16 08:00 100 03/12/16 08:00 98.6 26 171/88 92 03/12/16 07:36 Nasal Cannula 2.00 Labs Laboratory Tests Test 03/11/16 03/12/16 13:58 03:36 Potassium Level 3.6 3.9 White Blood Count 27.6 Red Blood Count 3.35 Hemoglobin 9.4 Hematocrit 29.1 Mean Corpuscular Volume 86.8 Mean Corpuscular Hemoglobin 27.9 Mean Corpuscular Hemoglobin 32.2 Concent Red Cell Distribution Width 15.6 Platelet Count 277 Mean Platelet Volume 9.7 Neutrophils (%) (Auto) Lymphocytes (%) (Auto) Monocytes (%) (Auto) Eosinophils (%) (Auto) Basophils (%) (Auto) Neutrophils # (Auto) Lymphocytes # (Auto) Monocytes # (Auto) Eosinophils # (Auto) Basophils # (Auto) CBC Comment AUTO DIFF Differential Total Cells 100 Counted Neutrophils % (Manual) 82 Band Neutrophils % 7 Monocytes % 5 Eosinophils % 3 Neutrophils # (Manual) 25.4 Metamyelocytes 1 Myelocytes 2 Differential Comment FINAL DIFF MANUAL Platelet Estimate NORMAL Platelet Morphology Comment NORMAL Keratocytes 1+ Sodium Level 140 Chloride Level 107 Carbon Dioxide Level 22.4 Anion Gap 11 Blood Urea Nitrogen 48 Creatinine 2.06 Estimat Glomerular Filtration 29 Rate Random Glucose 302 Calcium Level 10.0 Magnesium Level 2.1 Date/Time Procedure Status Source Growth 03/07/16 17:15 Aerobic Blood Culture - Preliminary Resulted Blood Peripheral NO GROWTH IN 4 DAYS 03/07/16 17:15 Anaerobic Blood Culture - Preliminary Resulted Blood Peripheral NO GROWTH IN 4 DAYS Radiology Last Impressions GI Procedure 03/05/16 0000 Signed Impressions: Service Date/Time: Friday, March 04, 2016 23:02 - CONCLUSION: ERCP as above. Vidal Ye MD Chest X-Ray 03/04/16 1626 Signed Impressions: Service Date/Time: Friday, March 04, 2016 16:52 - CONCLUSION: 1. Mild cardiomegaly. 2. No acute focal pulmonary infiltrate or pulmonary vascular congestion. 3. Mild elevation of right hemidiaphragm. Odilon Butler MD Gall Bladder Ultrasound 03/04/16 0000 Signed Impressions: Service Date/Time: Friday, March 04, 2016 19:36 - CONCLUSION: 1. Thick-walled gallbladder with some pericholecystic fluid and multiple gallstones in the region of the neck. The findings are suggestive of acute cholecystitis. Clinical correlation is recommended. 2. Fatty liver. 3. Minimal ascites within Polanco's pouch. 4. Poor visualization of the pancreas due to shadowing bowel gas. Odilon Butler MD Cholangiopancreatography MRI 03/04/16 0000 Signed Impressions: Service Date/Time: Friday, March 04, 2016 18:24 - CONCLUSION: 1. Extensive edema throughout the retroperitoneum and pancreas. No abscess or pseudocyst. 2. Tiny layering gallstones within the gallbladder. No discrete common bile duct stone. There is tapering of the common bile duct within the pancreatic head felt to be secondary to the edema within the pancreas. No discrete mass or choledocholithiasis. No intrahepatic or extrahepatic ductal dilatation. Maxwell Hsu Jr., MD Narrative Exam Awake and alert, no distress CV: RRR Abd: Soft, moderate upper abdominal ttp A/P Assessment and Plan 66 yo F with biliary obstruction secondary to pancreatic head edema s/p ERCP with stent, gallstone pancreatitis, acute cholecystitis. WBC continues to increase. Will check another CT a/p. Cont enteral feeding. Brian Ceballos MD Mar 12, 2016 09:51
[2016-03-12] MEDS ORDERED: DIATRIZOATE MEGLUM/DIATRIZOATE SOD 9 ML CUP PO ONE (10:45)
--- NOTE | 2016-03-12 15:01 | HHI.PR ---
Subjective Remarks Pt c/o worsening abdominal pain and distension. No n/v. Pt is tolerating TF Objective Vitals Vital Signs Date Time Temp Pulse Resp B/P Pulse Ox O2 Delivery O2 Flow Rate FiO2 03/12/16 14:00 87 03/12/16 12:00 87 03/12/16 12:00 99.0 87 25 122/60 94 03/12/16 10:00 68 03/12/16 08:00 100 03/12/16 08:00 98.6 100 26 171/88 92 03/12/16 07:36 93 Nasal Cannula 2.00 03/12/16 07:00 94 Nasal Cannula 2.00 03/12/16 06:00 74 03/12/16 04:00 99.9 74 27 147/84 95 03/12/16 04:00 74 03/12/16 02:00 70 03/12/16 00:00 82 03/12/16 00:00 98.9 82 21 108/60 95 03/11/16 22:00 80 03/11/16 20:38 96 Nasal Cannula 2.00 03/11/16 20:00 100.1 104 24 134/65 95 03/11/16 20:00 104 03/11/16 19:00 95 Nasal Cannula 2.00 03/11/16 18:00 108 03/11/16 16:00 99.1 112 37 171/79 92 03/11/16 16:00 112 03/11/16 03/11/16 03/12/16 14:59 22:59 06:59 Intake Total 1441 ml 1126 ml 1210 ml Output Total 400 ml 375 ml 240 ml Balance 1041 ml 751 ml 970 ml Intake Oral 0 ml IV Total 1014 ml 663 ml 701 ml Tube Feeding 347 ml 363 ml 409 ml Other 80 ml 100 ml 100 ml Output Urine Total 400 ml 375 ml 240 ml # Bowel Movements 1 1 0 Result Diagram: 03/12/16 0336 03/12/16 0336 Imaging Last Impressions Chest X-Ray 03/09/16 0000 Signed Impressions: Service Date/Time: February 13:11 - CONCLUSION: Left lower lobe atelectasis versus infiltrate is unchanged. Maxwell Hsu Jr., MD Abdomen X-Ray 03/09/16 0000 Signed Impressions: Service Date/Time: February 11:11 - CONCLUSION: 1. The tip of the weighted feeding tube is located in the descending portion of the duodenum. Scar Resendez MD Abdomen/Pelvis CT 03/08/16 0000 Signed Impressions: Service Date/Time: Tuesday, March 08, 2016 15:28 - CONCLUSION: Severe changes of pancreatitis, potentially with areas of hemorrhagic conversion. Darrian Engel MD GI Procedure 03/05/16 0000 Signed Impressions: Service Date/Time: Friday, March 04, 2016 23:02 - CONCLUSION: ERCP as above. Vidal Ye MD Gall Bladder Ultrasound 03/04/16 0000 Signed Impressions: Service Date/Time: Friday, March 04, 2016 19:36 - CONCLUSION: 1. Thick-walled gallbladder with some pericholecystic fluid and multiple gallstones in the region of the neck. The findings are suggestive of acute cholecystitis. Clinical correlation is recommended. 2. Fatty liver. 3. Minimal ascites within Polanco's pouch. 4. Poor visualization of the pancreas due to shadowing bowel gas. Odilon Butler MD Cholangiopancreatography MRI 03/04/16 0000 Signed Impressions: Service Date/Time: Friday, March 04, 2016 18:24 - CONCLUSION: 1. Extensive edema throughout the retroperitoneum and pancreas. No abscess or pseudocyst. 2. Tiny layering gallstones within the gallbladder. No discrete common bile duct stone. There is tapering of the common bile duct within the pancreatic head felt to be secondary to the edema within the pancreas. No discrete mass or choledocholithiasis. No intrahepatic or extrahepatic ductal dilatation. Maxwell Hsu Jr., MD Objective Remarks General: NAD, AAOx3 Chest: diffuse wheeze, poor air movement Cardiac: Regular Abd: soft, +BS x 4 Ext: mild LE pitting edema A/P Problem List: (1) Severe sepsis with acute organ dysfunction Status: Acute Plan: - comgmt with General Surgery, ID, and GI - Pt admitted with sudden onset of abd pain, nausea/vomiting on 03/04/16 - Labs at admission noted elevated WBC count 16.8 - LFTs were elevated at TBili 4.0, AST 472, ALT 378, AlkPhos 154 with Lipase of 7635 - Also noted to have an elevated Lactic acid of 4.5 and was admitted to ICU - MRCP (03/04) --> Extensive edema throughout the retroperitoneum and pancreas. No abscess or pseudocyst. Tiny layering gallstones within the gallbladder. No discrete common bile duct stone. There is tapering of the common bile duct within the pancreatic head felt to be secondary to the edema within the pancreas. No discrete mass or choledocholithiasis. No intrahepatic or extrahepatic ductal dilatation. - GB US (03/04) --> Thick-walled gallbladder with some pericholecystic fluid and multiple gallstones in the region of the neck. The findings are suggestive of acute cholecystitis. Fatty liver. Minimal ascites within Polanco's pouch. - Pt was seen by GI and underwent ERCP with stent placement in the CBD on - LFTs nearly normalized - Tmax 100.1 at 8PM (03/11/16) - Lipase 7155 (03/07/16) --> 449 (03/08/16) --> 224 (03/09) - repeat CT Abd/pelvis (03/08/16) severe pancreatitis, potentially with areas of hemorrhagic conversion. - Pt made NPO and had Dobbhoff placed for post-pyloric TF - WBC count increased today to 27.6 (03/12/16) - Blood cultures (03/04) with no growth x 5 days - Repeat blood cultures (03/07) with no growth at 5d - Cont. Zosyn - Diflucan 100mg po daily added on 03/08 - Pts weight had increased from 121Kg to 133 Kg on 03/09. - IVF with LR were decreased to @85mL/hr - Pt was given Lasix 80mg IV x one dose on 03/09. - Pt UOP was 2049 and weight decreased to 130.2kg - pt's UOP now decreased. IVF rate again increased, 150 ml/hour - observe UOP - observe respiratory status - repeat CBC, BMP, Mag in AM - agree with repeat CT abd/pelvis ordered by General Surgery - DVT prophylaxis (2) Pancreatitis, acute Status: Acute Plan: - See above. (3) Cholangitis Status: Acute Plan: - See above (4) Ventricular tachycardia (paroxysmal) Status: Acute Plan: - Cardiology consulted on 03/08 due to pt having a two runs of ventricular tachycardia on 03/07 which was felt to be secondary to her acute illness. - Pt was started on Metoprolol 50mg Q12H - No further issues with dysrhythmia noted - 2D echo (03/08) - Estimated EF 55-60% - Mild tricuspid regurgitation - PA peak pressure 39mmHg (5) HTN (hypertension) Status: Chronic Plan: - Cont. Metoprolol 50mg BID - Cont. Lisinopril 10mg BID (6) Renal insufficiency Status: Acute Plan: - worsening - Cr 2.06 (03/12/16) - IVFs - repeat BMP in AM (7) Leukocytosis Status: Acute Plan: - See above Yandel Stewart DO Mar 12, 2016 15:01
[2016-03-12] MEDS ORDERED: FUROSEMIDE 20 MG/2 ML VIAL IV PUSH ONE (15:45)
--- NOTE | 2016-03-12 15:50 | RADRPT ---
EXAM DATE/TIME: 03/12/2016 15:26 [facility] COMPARISON: CHEST SINGLE AP, March 07, 2016, 16:02. CHEST SINGLE AP, March 09, 2016, 13:11. INDICATIONS : Shortness of breath. MEDICAL HISTORY : Carcinoma, breast. Pancreatitis. Hypertension. SURGICAL HISTORY : Hysterectomy. ENCOUNTER: Subsequent ACUITY: 1 week PAIN SCORE: Non-responsive. LOCATION: Bilateral chest FINDINGS: Mild left lung base atelectasis and/or infiltrate is seen. Dobbhoff tube is present with tip not visu alized. There is slight haziness to the perivascular structures may be technical. CONCLUSION: Mild left lung base atelectasis and/or infiltrate is seen. Abisai Lundy MD on March 12, 2016 at 15:46 Board Certified Radiologist. This report was verified electronically.
--- NOTE | 2016-03-12 16:13 | HHI.CCPN ---
Subjective Remarks/Hospital Course > 48 hour history of epigastric pain, vomiting. GB US reveals cholecystitis with stones in neck. MRCP - pancreatitis, ducts not dilated. Received stent into a bile duct secondary to stricture due to pancreatic head edema. [facility] re -consulted today 03/12 due to patient's tachypnea and abdominal distention. Objective Vital Signs Date Time Temp Pulse Resp B/P Pulse Ox O2 Delivery O2 Flow Rate FiO2 03/12/16 14:00 87 03/12/16 12:00 99.0 25 122/60 94 03/12/16 07:36 Nasal Cannula 2.00 Intake and Output 03/11/16 03/11/16 03/12/16 08:00 16:00 00:00 Intake Total 748 ml 1441 ml 1126 ml Output Total 300 ml 400 ml 375 ml Balance 448 ml 1041 ml 751 ml Result Diagram: 03/12/16 0336 03/12/16 0336 Imaging Last Impressions GI Procedure 03/05/16 0000 Signed Impressions: Service Date/Time: Friday, March 04, 2016 23:02 - CONCLUSION: ERCP as above. Vidal Ye MD Chest X-Ray 03/04/16 1626 Signed Impressions: Service Date/Time: Friday, March 04, 2016 16:52 - CONCLUSION: 1. Mild cardiomegaly. 2. No acute focal pulmonary infiltrate or pulmonary vascular congestion. 3. Mild elevation of right hemidiaphragm. Oidlon Butler MD Gall Bladder Ultrasound 03/04/16 0000 Signed Impressions: Service Date/Time: Friday, March 04, 2016 19:36 - CONCLUSION: 1. Thick-walled gallbladder with some pericholecystic fluid and multiple gallstones in the region of the neck. The findings are suggestive of acute cholecystitis. Clinical correlation is recommended. 2. Fatty liver. 3. Minimal ascites within Polanco's pouch. 4. Poor visualization of the pancreas due to shadowing bowel gas. Odilon Butler MD Cholangiopancreatography MRI 03/04/16 0000 Signed Impressions: Service Date/Time: Friday, March 04, 2016 18:24 - CONCLUSION: 1. Extensive edema throughout the retroperitoneum and pancreas. No abscess or pseudocyst. 2. Tiny layering gallstones within the gallbladder. No discrete common bile duct stone. There is tapering of the common bile duct within the pancreatic head felt to be secondary to the edema within the pancreas. No discrete mass or choledocholithiasis. No intrahepatic or extrahepatic ductal dilatation. Maxwell Hsu Jr., MD Objective Remarks GENERAL: 66-year-old AA female, morbidly obese, critically ill appearing, currently resting in bed in no acute distress SKIN: Warm and dry. No rash HEAD: Atraumatic. Normocephalic. EYES: Pupils equal and round around 3 mm bilaterally and reactive. No scleral icterus. No injection or drainage. ENT: No nasal bleeding or discharge. Mucous membranes pink and moist. NECK: Trachea midline. No JVD. CARDIOVASCULAR: Regular rate and rhythm. S1, S2. No S4. Without murmur RESPIRATORY: Clear to auscultation. Breath sounds equal bilaterally. GASTROINTESTINAL: Abdomen obese. Tender to palpation in all quadrants with no rebound. Voluntary guarding. No rigidity. Hypoactive bowel sounds MUSCULOSKELETAL: Extremities trace lower extremity pedal edema. No obvious deformities. NEUROLOGICAL: Awake and alert. No obvious cranial nerve deficits. Motor grossly within normal limits. Five out of 5 muscle strength in the arms and legs. Normal speech. PSYCHIATRIC: Appropriate mood and affect; insight and judgment normal. Reason for Continuation resp distress A/P Problem List: (1) Severe sepsis with acute organ dysfunction ICD Code: A41.9 Status: Acute (2) Cholangitis ICD Code: K83.0 Status: Acute (3) Hypertensive urgency ICD Code: I16.0 Status: Acute Assessment and Plan Neuro/Psych: Pain management for acute pancreatitis [place] 5/325 one every 4 hours/Dilaudid 1 mg IV every 4 hours when necessary for pain management CV: Severe sepsis from cholangitis Hypertension Dyslipidemia Lactic acidosis - appears fluid overloaded, will hold hydration - repeat ABG, Lactate - Holding home medications lisinopril/HCTZ 20/25 - Noted elevated HDL/LDL/total cholesterol - Consider statin when appropriate once LFTs normalize - As needed labetalol, hydralazine, Nitropaste for blood pressure control of present Resp: - Nasal cannula to maintain saturations greater than equal to 90% - Incentive spirometry while awake - ABG stat - CXR stat GI: Status post ERCP/placement of stenting, bile duct secondary to stenosis Pancreatitis Transaminitis Hypo-albuminemia - Dr. Lucero/GI performed ERCP with stent placement, common bile duct secondary to stricture - Ultrasound revealed thickening in the gallbladder with pericholecystic fluid. Tiny gallstones noted. - MRCP revealed retroperitoneal edema, with edema causing potentially narrowing of the distal common bile duct - LFTs/lipase STAT - Protonix for GI prophylaxis - Colace/as needed Senokot for bowel regimen - Autoimmune pancreatitis??? - consider steroids : Azul if needed for accurate I's and O's in critically ill patient Endo: Hyperglycemia of critical illness Sliding-scale insulin. Accu-Cheks before meals/at bedtime to maintain euglycemia. Low regimen. Renal: LOI - fluid overload - Creatinine worsening - attempt to diurese - Follow BMP in a.m. Heme/Onc: History of breast cancer status post right mastectomy CBC/cordis within normal limits this exam. Follow-up labs in a.m. Currently holding Letrozole 2.5 mg daily with elevated LFTs. Resume when clinically indicated ID: Zosyn Fluconazole ID consult appreciated FEN: Replace electrolytes as clinically indicated per ICU electrolyte protocol On clear liquid diet per GI MSK: Out of bed/PT evaluate and treat Access - Utilize peripheral IV. Central line if clinically indicated Prophylaxis - GI - Protonix - DVT - SCD/heparin Critical Care: The total critical care time was 35 minutes. Time to perform other separately billable procedures was not included in the critical care time. Alexandre Stafford MD Mar 12, 2016 16:13 The total critical care time was 45 minutes. Time to perform other separately billable procedures was not included in the critical care time. Alexandre Stafford MD Mar 12, 2016 16:13
[2016-03-12 16:30] LABS: BLOOD GAS BASE EXCESS 0.2 mmol/L (-2-2); BLOOD GAS CARBOXYHEMOGLOBIN 1.5 % (0-4); BLOOD GAS HCO3 25 mmol/L (22-26); BLOOD GAS METHEMOGLOBIN 0.9 % (0-2); BLOOD GAS O2 HGB SATURATION 93 % (90-100); BLOOD GAS OXYGEN CONTENT 13.1 Vol % (12.0-20.0); BLOOD GAS PCO2 45 mmHg (38-42); BLOOD GAS PO2 80 mmHg (61-120); BLOOD GAS TOTAL HGB 9.9 G/DL (12.0-16.0); CRITICAL VALUE NO; DRAW SITE LT RADIAL; LITER FLOW 3.5 L/M; NUMBER OF ARTERIAL PUNCTURES 1; OXYGEN DEVICE NASAL CANNULA; STAT YES; TEMP CORR TO 98.6; ULNAR PULSE PRESENT
[2016-03-12 17:07] LABS: INDIRECT BILIRUBIN 0.2 MG/DL (0.0-0.8); TOTAL BILIRUBIN ADULT 0.6 MG/DL (0.2-1.0)
--- NOTE | 2016-03-12 17:48 | RADRPT ---
EXAM DATE/TIME: 03/12/2016 16:59 This report includes an Addendum and supersedes previous reports for this exam. [facility] COMPARISON: CT ABDOMEN & PELVIS W CONTRAST, March 08, 2016, 15:28. ABDOMEN KUB ONLY, March 09, 2016, 11:11 . INDICATIONS : Follow up pancreatitis. ORAL CONTRAST: Prescribed oral contrast ingested. RADIATION DOSE: 31.76 CTDIvol (mGy) MEDICAL HISTORY : Hypertension. Pancreatitis. Carcinoma, breast. SURGICAL HISTORY : None. ENCOUNTER: Subsequent ACUITY: 1 week PAIN SCALE: Non-responsive LOCATION: abdomen TECHNIQUE: Volumetric scanning of the abdomen and pelvis was performed. Using automated exposure control and ad justment of the mA and/or kV according to patient size, radiation dose was kept as low as reasonably achievable to obtain optimal diagnostic quality images. FINDINGS: Multiple gallstones are again seen. There is slight fluid in the perihepatic space with signific ant fluid and edema in the lesser sac surrounding the pancreas. This is characteristic of fairly sign ificant acute pancreatitis and the possibility of gangrenous pancreatitis should be entertained. Ther e is worsening of edema in the lesser sac with extension down into bilateral paracolic gutters. Sligh t degree of anasarca is seen. Dobbhoff tube is present with tip in the duodenum and there is also a b iliary stent in place. Left lung base consolidation is present with slight right lung base atelectasi s and/or infiltrate. A Dobbhoff tube is in place with gas collection projecting over the dome of the bladder probably inside the bladder on the coronal projection. The rest of the examination is unremar kable. CONCLUSION: Worsening acute pancreatitis. Abisai Lundy MD on March 12, 2016 at 17:37 Board Certified Radiologist. This report was verified electronically. ADDENDUM: Not mentioned above are bubbles of gas involving the cecum and ascending colon difficult to exclude p neumatosis, however they appear to be towards the dependent portion of the bowel wall and therefore p ossibility of pneumatosis intestinalis should be entertained. Abisai Lundy MD on March 12, 2016 at 19:05 Board Certified Radiologist. This report was verified electronically.
[2016-03-12] MEDS ORDERED: HYDROCORTISONE SOD SUCCINATE 100 MG VIAL IV PUSH SCH (22:00)
[2016-03-13] VITALS (14 sets, daily range): BP systolic 95–153; BP diastolic 51–70; PULSE 67–108; RESP 20–31; TEMP 97.7–99.8; O2SAT 93–100
[2016-03-13] MEDS: PIPERACIL-TAZO 2.25 GM PREMIX 50 ML IV SCH ×2 (00:18→05:23)
[2016-03-13] MEDS ORDERED: SODIUM CHLORID 0.9% 500 ML INJ 500 ML IV ONE (00:45)
[2016-03-13] MEDS: HYDROmorphone HCL PF 1 MG/ML VIAL IV PRN ×3 (03:17→12:56)
[2016-03-13] MEDS: CHLORHEXIDINE GLUCONATE 2 % 1 PACK (2 CLOTHS) TOP SCH (03:31)
[2016-03-13 05:07] LABS: HEMATOCRIT 30.1 % (35.0-46.0); MEAN CELL VOLUME 87.3 FL (80.0-100.0); MEAN CORPUSCULAR HEMOGLOBIN 27.3 PG (27.0-34.0); MEAN CORPUSCULAR HGB CONC 31.3 % (32.0-36.0); PLATELET COUNT 325 TH/MM3 (150-450); RED BLOOD COUNT 3.45 MIL/MM3 (4.00-5.30); RED CELL DISTRIBUTION WIDTH 15.5 % (11.6-17.2); WHITE BLOOD COUNT 35.3 TH/MM3 (4.0-11.0)
[2016-03-13 05:09] LABS: HEMO FLAGS AUTO DIFF
[2016-03-13] MEDS: LACTATED RINGER'S 1000 ML INJ 1,000 ML IV SCH (05:22)
[2016-03-13 06:07] LABS: BLOOD UREA NITROGEN 62 MG/DL (7-18); GLOMERULAR FILTRATION RATE 25 ML/MIN (>89)
[2016-03-13 06:08] LABS: ALKALINE PHOSPHATASE 118 U/L (45-117); ALT (GPT) 34 U/L (10-53); ANION GAP 10 MEQ/L (5-15); AST (GOT) 43 U/L (15-37); BICARBONATE 24.4 MEQ/L (21.0-32.0); CHLORIDE 106 MEQ/L (98-107); MAGNESIUM 2.2 MG/DL (1.5-2.5); POTASSIUM 4.6 MEQ/L (3.5-5.1); SODIUM (NA) 140 MEQ/L (136-145); TOTAL BILIRUBIN ADULT 0.6 MG/DL (0.2-1.0)
[2016-03-13] MEDS: INSULIN NovoLIN REGULAR SUPPLEMENTAL SCALE SQ SCH ×4 (06:26→21:23)
[2016-03-13 06:47] LABS: BANDS 6 % (0-6); METAMYELOCYTES 1 % (0-1); MYELOCYTES 1 % (0-0); NEUTROPHIL # MANUAL DIFF 33.5 TH/MM3 (1.8-7.7); POLYS (SEG NEUTROPHILS) 87 % (16-70); SCAN/DIFF FINAL DIFF MANUAL; WBC DIFF SAMPLE 100
[2016-03-13 06:48] LABS: PLATELET ESTIMATE SMEAR NORMAL (NORMAL)
[2016-03-13 06:49] LABS: PLATELET MORPHOLOGY NORMAL (NORMAL)
[2016-03-13 06:50] LABS: ACANTHOCYTES OCC (NORMAL); KERATOCYTES OCC (NORMAL); OVALOCYTES 1+ (NORMAL)
[2016-03-13] MEDS: FLUCONAZOLE 100 MG TAB PO SCH (08:27)
[2016-03-13] MEDS: DOCUSATE SODIUM 100 MG CAP PO SCH ×2 (08:27→21:00)
[2016-03-13] MEDS: METOPROLOL TARTRATE 50 MG TAB PO SCH (08:27)
[2016-03-13] MEDS: INSULIN DETEMIR 100 UNITS/ML VIAL SQ SCH (08:28)
[2016-03-13] MEDS: HEPARIN SODIUM - SQ 10,000 UNITS/ML VIAL SQ SCH ×2 (08:28→21:22)
[2016-03-13] MEDS: PANTOPRAZOLE SODIUM 40 MG VIAL IV SCH (08:28)
[2016-03-13] MEDS: SODIUM CHLORIDE 0.9% FLUSH 5 ML FLUSH IV FLUSH SCH ×2 (08:28→21:22)
[2016-03-13] MEDS ORDERED: MEROPENEM INJ 1,000 MG in SODIUM CHLORIDE 0.9% INJ 100 ML IV SCH ×2 (09:30→12:00)
[2016-03-13] MEDS ORDERED: ASP: Necrotizing pancreatitis XX PRN (09:30)
[2016-03-13] MEDS ORDERED: MISCELLANEOUS PHARMACY INFORMATION XX PRN (09:30)
--- NOTE | 2016-03-13 09:54 | HHI.CCPN ---
Subjective Remarks/Hospital Course > 48 hour history of epigastric pain, vomiting. GB US reveals cholecystitis with stones in neck. MRCP - pancreatitis, ducts not dilated. Received stent into a bile duct secondary to stricture due to pancreatic head edema. [facility] re -consulted today 03/12 due to patient's tachypnea and abdominal distention. Subjective 03/13 - Patient appears significantly more acutely ill since I last saw her . Answers questions in 1-2 word responses. Resting in bed with quite distant added. Diffuse in all 4 quadrants abdominal stated to be Pain 10 out of 10. Tube feeds on hold. Decreased urine output noted. Objective Vital Signs Date Time Temp Pulse Resp B/P Pulse Ox O2 Delivery O2 Flow Rate FiO2 03/13/16 08:41 98 Nasal Cannula 2.00 03/13/16 08:00 80 03/13/16 08:00 97.7 26 136/66 Intake and Output 03/12/16 03/12/16 03/13/16 08:00 16:00 00:00 Intake Total 1210 ml 1372 ml 270 ml Output Total 240 ml 200 ml 200 ml Balance 970 ml 1172 ml 70 ml Result Diagram: 03/13/16 0449 03/13/16 0449 Imaging Last Impressions Chest X-Ray 03/12/16 0000 Signed Impressions: Service Date/Time: Saturday, March 12, 2016 15:26 - CONCLUSION: Mild left lung base atelectasis and/or infiltrate is seen. Abisai Lundy MD Abdomen/Pelvis CT 03/12/16 0000 Signed Impressions: Service Date/Time: Saturday, March 12, 2016 16:59 - CONCLUSION: Worsening acute pancreatitis. Abisai Lundy MD ADDENDUM: Not mentioned above are bubbles of gas involving the cecum and ascending colon difficult to exclude pneumatosis, however they appear to be towards the dependent portion of the bowel wall and therefore possibility of pneumatosis intestinalis should be entertained. Abisai Lundy MD Abdomen X-Ray 03/09/16 0000 Signed Impressions: Service Date/Time: February 11:11 - CONCLUSION: 1. The tip of the weighted feeding tube is located in the descending portion of the duodenum. Scar Resendez MD GI Procedure 03/05/16 0000 Signed Impressions: Service Date/Time: Friday, March 04, 2016 23:02 - CONCLUSION: ERCP as above. Vidal Ye MD Gall Bladder Ultrasound 03/04/16 0000 Signed Impressions: Service Date/Time: Friday, March 04, 2016 19:36 - CONCLUSION: 1. Thick-walled gallbladder with some pericholecystic fluid and multiple gallstones in the region of the neck. The findings are suggestive of acute cholecystitis. Clinical correlation is recommended. 2. Fatty liver. 3. Minimal ascites within Polanco's pouch. 4. Poor visualization of the pancreas due to shadowing bowel gas. Odilon Butler MD Cholangiopancreatography MRI 03/04/16 0000 Signed Impressions: Service Date/Time: Friday, March 04, 2016 18:24 - CONCLUSION: 1. Extensive edema throughout the retroperitoneum and pancreas. No abscess or pseudocyst. 2. Tiny layering gallstones within the gallbladder. No discrete common bile duct stone. There is tapering of the common bile duct within the pancreatic head felt to be secondary to the edema within the pancreas. No discrete mass or choledocholithiasis. No intrahepatic or extrahepatic ductal dilatation. Maxwell Hsu Jr., MD Objective Remarks GENERAL: 66-year-old AA female, morbidly obese, critically ill appearing, currently resting in bed in no acute distress SKIN: Warm and dry. No rash HEAD: Atraumatic. Normocephalic. EYES: Pupils equal and round around 3 mm bilaterally and reactive. No scleral icterus. No injection or drainage. ENT: No nasal bleeding or discharge. Mucous membranes pink and moist. NECK: Trachea midline. No JVD. CARDIOVASCULAR: Regular rate and rhythm. S1, S2. No S4. Without murmur RESPIRATORY: Clear to auscultation. Breath sounds equal bilaterally. GASTROINTESTINAL: Abdomen obese. Tender to palpation in all quadrants with no rebound. Voluntary guarding. No rigidity. Hypoactive bowel sounds MUSCULOSKELETAL: Extremities with 1-2+ lower extremity pedal edema/anasarca- like. No obvious deformities. NEUROLOGICAL: Awake and alert. No obvious cranial nerve deficits. Motor grossly within normal limits. Five out of 5 muscle strength in the arms and legs. Normal speech. PSYCHIATRIC: Depressed mood and affect. A/P Problem List: (1) Severe sepsis with acute organ dysfunction ICD Code: A41.9 Status: Acute (2) Cholangitis ICD Code: K83.0 Status: Acute (3) Hypertensive urgency ICD Code: I16.0 Status: Acute Assessment and Plan Neuro/Psych: Pain management for acute necrotizing pancreatitis [place] 5/325 one every 4 hours/Dilaudid 1 mg IV every 4 hours when necessary for pain management CV: Severe sepsis from cholangitis/necrotizing pancreatitis Hypertension by history Dyslipidemia Lactic acidosis - resolved - appears fluid overloaded, +12 kg since admission - repeat Lactate this a.m. pending. Normal yesterday - Holding home medications lisinopril/HCTZ in light of acute kidney injury. - Noted elevated HDL/LDL/total cholesterol - triglycerides within normal limits Consider statin when appropriate once LFTs normalize - As needed labetalol, hydralazine, Nitropaste for blood pressure control of present - On metoprolol 50 mg twice a day with some SVT during this hospitalization. We 'll switch to IV Lopressor 2.5 every 6 hours - 2-D echo EF 55 - 60%. Trace MRSamuel ANNIE 39 mmHg Resp: - Nasal cannula to maintain saturations greater than equal to 92% - Incentive spirometry while awake - Chest x-ray 03/12 reveals possible right lower lobe effusion/atelectasis GI: Status post ERCP/placement of stenting, bile duct secondary to stenosis Acute necrotizing Pancreatitis Possible pneumatosis intestinalis Transaminitis Hypo-albuminemia CT abdomen/pelvis 03/12 revealed multiple gallstones/worsening pancreatitis and possible pneumatosis intestinalis involving the cecum and the ascending colon Dr. Ceballos/general surgery following Pending lactate and intra-abdominal bladder pressures - Dr. Lucero/GI performed ERCP 03/04 with stent placement, distal common bile duct 8.5 [place] 7 cm secondary to stricture - Ultrasound revealed thickening in the gallbladder with pericholecystic fluid. Tiny gallstones noted. - MRCP revealed retroperitoneal edema, with edema causing potentially narrowing of the distal common bile duct - Protonix for GI prophylaxis - Colace/as needed Senokot for bowel regimen - Autoimmune pancreatitis - IgG4 pending : Azul if needed for accurate I's and O's in critically ill patient Endo: Hyperglycemia of critical illness Sliding-scale insulin. Accu-Cheks every 6 hours to maintain euglycemia. Low regimen. Levemir 10 units twice a day held in light of nothing by mouth status Renal: LOI - fluid overload. +16 kg since admission - Creatinine worsening and currently 2.6 - Avoid nephrotoxic drugs. Noted lisinopril/adequate as it held - attempt to diurese with Bumex drip at 0.5 mg an hour - Started albumin 25 g every 6 hours 4 dosages - Nephrology consultation. Need of hemodialysis with the next 24-48 hours - Ordered urine eosinophils/electrolytes and renal ultrasound - Follow BMP in a.m. Heme/Onc: History of breast cancer status post right mastectomy Leukocytosis Normocytic anemia CBC/coags ordered this a.m. Currently holding Letrozole 2.5 mg daily with elevated LFTs. Resume when clinically indicated ID: Possible necrotizing pancreatitis/pneumatosis intestinalis Day #1 micafungin/Merrem ID consult appreciated Blood cultures 2 ordered FEN: Replace electrolytes as clinically indicated Currently nothing by mouth for general surgery On normal saline at 40 cc an hour MSK: Out of bed/PT evaluate and treat Access - Utilize peripheral IV. Central line if clinically indicated Prophylaxis - GI - Protonix - DVT - SCD/heparin Critical Care: The total critical care time was 35 minutes. Time to perform other separately billable procedures was not included in the critical care time. Discussed with Rosalio Flores MD Mar 13, 2016 09:53
[2016-03-13] MEDS: SODIUM CHLOR 0.9% 1000 ML INJ 1,000 ML IV SCH (10:04)
[2016-03-13] MEDS: ALBUMIN HUMAN 25% 25 GM/100 ML BAGP IV SCH ×2 (10:28→18:11)
[2016-03-13] MEDS: metroNIDAZOLE 500 MG INJ 100 ML IV SCH ×2 (10:29→18:11)
[2016-03-13 11:05] LABS: BACTERIA, URINE MOD /hpf; BLOOD, URINE TRACE (NEG); GLUCOSE,URINE NEG (NEG); KETONE, URINE NEG (NEG); MUCUS URINE FEW /lpf (OCC); NITRITE,URINE NEG (NEG); SQUAMOUS EPITHELIAL CELL URINE <1 /hpf (0-5); URINE COLOR YELLOW (YELLW/STRAW)
[2016-03-13] MEDS: METOPROLOL TARTRATE 5 MG/5 ML VIAL IV PUSH SCH ×2 (11:33→18:11)
[2016-03-13] MEDS: MICAFUNGIN INJ 150 MG in SODIUM CHLORIDE 0.9% INJ 100 ML IV SCH (11:34)
[2016-03-13 11:55] LABS: AMYLASE 53 U/L (25-115); CREATINE KINASE 29 U/L (26-192)
[2016-03-13] MEDS: BUMETANIDE INJ 100 ML IV SCH (13:06)
[2016-03-13 13:09] LABS: APTT (PATIENT) 23.8 SEC (24.3-30.1); INTERNATIONAL NORMALIZED RATIO 1.1 RATIO; PROTHROMBIN TIME - PATIENT 11.7 SEC (9.8-11.6)
[2016-03-13] MEDS ORDERED: HYDROmorphone HCL PF 1 MG/ML VIAL IV PUSH PRN (15:30)
[2016-03-13 16:31] LABS: BLOOD GAS BASE EXCESS 0.4 mmol/L (-2-2); BLOOD GAS CARBOXYHEMOGLOBIN 1.6 % (0-4); BLOOD GAS HCO3 26 mmol/L (22-26); BLOOD GAS METHEMOGLOBIN 0.9 % (0-2); BLOOD GAS O2 HGB SATURATION 90 % (90-100); BLOOD GAS PCO2 51 mmHg (38-42); BLOOD GAS PO2 70 mmHg (61-120); BLOOD GAS TOTAL HGB 9.4 G/DL (12.0-16.0); TEMP CORR TO 98.6
[2016-03-13 16:32] LABS: CRITICAL VALUE YES; DRAW SITE LT RADIAL; LITER FLOW 2.5 L/M; NUMBER OF ARTERIAL PUNCTURES 1; OXYGEN DEVICE NASAL CANNULA; STAT NO; ULNAR PULSE PRESENT
[2016-03-13] MEDS ORDERED: SODIUM CHLOR 0.9% 1000 ML INJ 1,000 ML IV PRN ×2 (17:19)
--- NOTE | 2016-03-13 17:26 | HHI.IDPN ---
Subjective Subjective Remarks is a 66-year-old woman who was admitted to the hospital with nausea and vomiting with severe abdominal pain and no po intake on admission.She also reports diarrhea prior to arrival. Patient reported chills on admission. No prior h/o gallstones or pancreatic issues. Being treated acute pancreatitis and acute cholangitis. Overnight events reviewed Weekend events reviewed. CT Abd/pelvis reviewed. No fevers UO low. Appears more short of breath. No rash No diarrhea Antibiotics Zosyn IV Diflucan oral Lines Line sites with no e/o infection Past Medical History reviewed. Allergies: Coded Allergies: No Known Allergies (Verified , 02/18/15) Objective . Vital Signs Date Time Temp Pulse Resp B/P Pulse Ox O2 Delivery O2 Flow Rate FiO2 03/13/16 16:00 82 03/13/16 16:00 98.6 82 25 153/67 96 03/13/16 14:00 84 03/13/16 12:00 82 03/13/16 12:00 98.2 74 25 131/60 94 03/13/16 10:00 67 03/13/16 08:41 98 Nasal Cannula 2.00 03/13/16 08:00 80 03/13/16 08:00 97.7 80 26 136/66 100 03/13/16 07:00 98 Nasal Cannula 2.00 03/13/16 06:00 81 03/13/16 04:00 98.1 79 21 120/60 93 03/13/16 04:00 79 03/13/16 02:00 79 03/13/16 00:00 73 03/13/16 00:00 98.2 73 20 95/51 96 03/12/16 22:00 91 03/12/16 20:00 110 03/12/16 20:00 99.8 110 26 118/63 94 03/12/16 19:38 94 Nasal Cannula 2.00 03/12/16 19:00 94 Nasal Cannula 2.00 03/12/16 18:00 116 03/12/16 03/12/16 03/13/16 15:00 23:00 07:00 Intake Total 1372 ml 270 ml 1269 ml Output Total 200 ml 200 ml 150 ml Balance 1172 ml 70 ml 1119 ml Intake Oral 473 ml 50 ml IV Total 577 ml 174 ml 1219 ml Tube Feeding 222 ml 96 ml Other 100 ml Output Urine Total 200 ml 200 ml 150 ml # Bowel Movements 1 . Laboratory Tests Test 03/12/16 03/13/16 03:36 04:49 White Blood Count 27.6 TH/MM3 35.3 TH/MM3 Red Blood Count 3.35 MIL/MM3 3.45 MIL/MM3 Hemoglobin 9.4 GM/DL 9.4 GM/DL Hematocrit 29.1 % 30.1 % Mean Corpuscular Volume 86.8 FL 87.3 FL Mean Corpuscular Hemoglobin 27.9 PG 27.3 PG Mean Corpuscular Hemoglobin 32.2 % 31.3 % Concent Red Cell Distribution Width 15.6 % 15.5 % Platelet Count 277 TH/MM3 325 TH/MM3 Mean Platelet Volume 9.7 FL 9.7 FL Neutrophils (%) (Auto) % % Lymphocytes (%) (Auto) % % Monocytes (%) (Auto) % % Eosinophils (%) (Auto) % % Basophils (%) (Auto) % % Neutrophils # (Auto) TH/MM3 TH/MM3 Lymphocytes # (Auto) TH/MM3 TH/MM3 Monocytes # (Auto) TH/MM3 TH/MM3 Eosinophils # (Auto) TH/MM3 TH/MM3 Basophils # (Auto) TH/MM3 TH/MM3 CBC Comment AUTO DIFF AUTO DIFF Differential Total Cells 100 100 Counted Neutrophils % (Manual) 82 % 87 % Band Neutrophils % 7 % 6 % Monocytes % 5 % 3 % Eosinophils % 3 % Neutrophils # (Manual) 25.4 TH/MM3 33.5 TH/MM3 Metamyelocytes 1 % 1 % Myelocytes 2 % 1 % Differential Comment FINAL DIFF FINAL DIFF MANUAL MANUAL Platelet Estimate NORMAL NORMAL Platelet Morphology Comment NORMAL NORMAL Keratocytes 1+ OCC Lymphocytes % 2 % Ovalocytes 1+ Acanthocytes OCC Laboratory Tests Test 03/12/16 03/12/16 03/13/16 03/13/16 03:36 16:30 04:49 11:03 Sodium Level 140 MEQ/L 140 MEQ/L Potassium Level 3.9 MEQ/L 4.6 MEQ/L Chloride Level 107 MEQ/L 106 MEQ/L Carbon Dioxide Level 22.4 MEQ/L 24.4 MEQ/L Anion Gap 11 MEQ/L 10 MEQ/L Blood Urea Nitrogen 48 MG/DL 62 MG/DL Creatinine 2.06 MG/DL 2.39 MG/DL Estimat Glomerular Filtration 29 ML/MIN 25 ML/MIN Rate Random Glucose 302 MG/DL 229 MG/DL Calcium Level 10.0 MG/DL 10.0 MG/DL Magnesium Level 2.1 MG/DL 2.2 MG/DL Lactic Acid Level 1.2 mmol/L 1.1 mmol/L Total Bilirubin 0.6 MG/DL 0.6 MG/DL Direct Bilirubin 0.4 MG/DL Indirect Bilirubin 0.2 MG/DL Aspartate Amino Transf 41 U/L 43 U/L (AST/SGOT) Alanine Aminotransferase 34 U/L 34 U/L (ALT/SGPT) Alkaline Phosphatase 124 U/L 118 U/L Total Protein 6.8 GM/DL 6.6 GM/DL Albumin 1.7 GM/DL 1.6 GM/DL Amylase Level 62 U/L 53 U/L Lipase 149 U/L 136 U/L Phosphorus Level 4.5 MG/DL Total Creatine Kinase 29 U/L Microbiology Date/Time Procedure Status Source Growth 03/13/16 11:03 Aerobic Blood Culture Received Blood Other Pending 03/13/16 11:03 Anaerobic Blood Culture Received Blood Other Pending 03/13/16 11:25 Aerobic Blood Culture Received Blood Other Pending 03/13/16 11:25 Anaerobic Blood Culture Received Blood Other Pending Imaging Last Impressions Chest X-Ray 03/09/16 0000 Signed Impressions: Service Date/Time: February 13:11 - CONCLUSION: Left lower lobe atelectasis versus infiltrate is unchanged. Maxwell Hsu Jr., MD Abdomen X-Ray 03/09/16 0000 Signed Impressions: Service Date/Time: February 11:11 - CONCLUSION: 1. The tip of the weighted feeding tube is located in the descending portion of the duodenum. Scar Resendez MD Abdomen/Pelvis CT 03/08/16 0000 Signed Impressions: Service Date/Time: Tuesday, March 08, 2016 15:28 - CONCLUSION: Severe changes of pancreatitis, potentially with areas of hemorrhagic conversion. Darrian Engel MD GI Procedure 03/05/16 0000 Signed Impressions: Service Date/Time: Friday, March 04, 2016 23:02 - CONCLUSION: ERCP as above. Vidal Ye MD Gall Bladder Ultrasound 03/04/16 0000 Signed Impressions: Service Date/Time: Friday, March 04, 2016 19:36 - CONCLUSION: 1. Thick-walled gallbladder with some pericholecystic fluid and multiple gallstones in the region of the neck. The findings are suggestive of acute cholecystitis. Clinical correlation is recommended. 2. Fatty liver. 3. Minimal ascites within Polanco's pouch. 4. Poor visualization of the pancreas due to shadowing bowel gas. Odilon Butler MD Cholangiopancreatography MRI 03/04/16 0000 Signed Impressions: Service Date/Time: Friday, March 04, 2016 18:24 - CONCLUSION: 1. Extensive edema throughout the retroperitoneum and pancreas. No abscess or pseudocyst. 2. Tiny layering gallstones within the gallbladder. No discrete common bile duct stone. There is tapering of the common bile duct within the pancreatic head felt to be secondary to the edema within the pancreas. No discrete mass or choledocholithiasis. No intrahepatic or extrahepatic ductal dilatation. Maxwell Hsu Jr., MD Physical Exam GENERAL: Obese AAF patient, in no apparent distress. SKIN: No rashes, ecchymoses or lesions. Cool and dry. HEAD: Atraumatic. Normocephalic. No temporal or scalp tenderness. EYES: Pupils equal round and reactive. Extraocular motions intact. No scleral icterus. No injection or drainage. ENT: Nose without bleeding, purulent drainage or septal hematoma. Throat without erythema, tonsillar hypertrophy or exudate. Uvula midline. Airway patent. NECK: Trachea midline. Supple, nontender, no meningeal signs. CARDIOVASCULAR: Regular rate and rhythm without murmurs, gallops, or rubs. RESPIRATORY: Clear to auscultation. Breath sounds equal bilaterally. No wheezes , rales, or rhonchi. GASTROINTESTINAL: Abdomen soft, tenderness in RUQ and epigastric region, distended, abd wall edema noted. MUSCULOSKELETAL: Generalized anasarca noted. NEUROLOGICAL: Awake and alert. Grossly non focal Psych: cooperative IV line sites with no e/o infection. Assessment & Plan Remarks SIRS possible Sepsis Acute Severe Pancreatitis with hemorrhage. Acute Pneumatosis Intestinalis (vs anasarca related bowel edema, cdiff) Acute cholangitis Recs: DC Zosyn IV and Flagyl. Start Meropenem IV Start Micafungin IV Start Flagyl IV for Cdiff and Pneumatosis Intestinalis. D/w and nephro HD tonight appears tachypneic. Follow cultures Follow clinically. D.w RN and patient. Cely Ayers MD Mar 13, 2016 17:26
[2016-03-13] MEDS ORDERED: ACETAMINOPHEN 325 MG TAB PO PRN (17:30)
[2016-03-13] MEDS ORDERED: ONDANSETRON HCL 4 MG/2 ML VIAL IV PRN (17:30)
[2016-03-13] MEDS ORDERED: diphenhydrAMINE HCL 25 MG CAP PO PRN (17:30)
[2016-03-13] MEDS ORDERED: MANNITOL 12.5 GM/50 ML VIAL IV PRN (17:30)
[2016-03-13] MEDS ORDERED: NITROGLYCERIN 0.4 MG SL 25 TABS/BTL SL PRN (17:30)
[2016-03-13] MEDS ORDERED: cloNIDine HCL 0.1 MG TAB PO PRN (17:30)
[2016-03-13] MEDS ORDERED: GELATIN 12 MM/7 MM FOAM TOP PRN (17:30)
[2016-03-13] MEDS ORDERED: ALBUMIN HUMAN 25% 25 GM/100 ML BAGP IV PRN (17:30)
[2016-03-13] MEDS ORDERED: SODIUM CHLORIDE 0.9% FLUSH 5 ML FLUSH IVF PRN (17:30)
[2016-03-13] MEDS ORDERED: HEPARIN SODIUM - IV 10,000 UNITS/10 ML VIAL IVF PRN (17:30)
--- NOTE | 2016-03-13 17:36 | PD.CONS ---
HPI Service Nephrology Consult Requested By Dr. Bowie Reason for Consult Acute renal failure Primary Care Physician Vic Diaz DO History of Present Illness Patient is 66-year-old female who has history of hypertension, obesity presented with abdominal pain and the has the elevated liver enzyme and lipase she was having acute pancreatitis underwent MRCP in the day was decompression of the common bile duct gallstones were removed to and she remains critically ill she is passing less and less urine, she is on Bumex drip at 2 mg per hour and accumulating fluid and gained weight she is increasingly short of breath requiring oxygen she is still awake and able to talk. Review of Systems Constitutional: COMPLAINS OF: Fatigue, Weight gain Respiratory: COMPLAINS OF: Shortness of breath Cardiovascular: COMPLAINS OF: Dyspnea on Exertion, Lower Extremity Edema Gastrointestinal: COMPLAINS OF: Abdominal pain, Nausea Psychiatric: COMPLAINS OF: Anxiety Past Family Social History Allergies: Coded Allergies: No Known Allergies (Verified , 02/18/15) Past Medical History Breast cancer s/p bilateral mastectomy HTN Obesity Past Surgical History Bilateral mastectomy Hysterectomy Reported Medications Reported Meds & Active Scripts Active Reported Letrozole 2.5 Mg Tab 1 Tab PO DAILY Lisinopril-Hctz 20-25 Mg Tab 1 Tab PO DAILY Active Ordered Medications Current Medications Medications (Trade) Dose Ordered Sig/Zonia Route Start Time Stop Time Status Last Admin (Protonix Inj) 40 mg DAILY IV 03/04/16 18:15 03/13/16 08:28 (Dilaudid Pf Inj) 1 mg Q3H PRN IV 03/04/16 20:30 03/13/16 12:56 (Apresoline Inj) 10 mg Q1HR PRN IV PUSH 03/05/16 07:00 03/11/16 17:02 (Trandate Inj) 10 mg Q1HR PRN IV PUSH 03/05/16 06:45 03/06/16 15:16 (Nitroglycerin 2% Oint) 2 inch Q6HR PRN TOPICAL 03/05/16 06:45 (D50w (Vial) Inj) 25 ml UNSCH PRN IV PUSH 03/05/16 07:00 (Glucagon Inj) 1 mg UNSCH PRN OTHER 03/05/16 07:00 ([place] 5-325 Mg) 1 tab Q4H PRN PO 03/05/16 07:00 03/12/16 01:19 (NS Flush) 2 ml UNSCH PRN IV FLUSH 03/05/16 07:00 (NS Flush) 2 ml BID IV FLUSH 03/05/16 09:00 03/13/16 08:28 (Tylenol) 650 mg Q6H PRN PO 03/05/16 07:00 03/10/16 15:43 (Zofran Inj) 4 mg Q6H PRN IV 03/05/16 07:00 03/05/16 19:35 (Colace) 100 mg BID PO 03/05/16 09:00 03/13/16 08:27 (Senokot) 17.2 mg Q12H PRN PO 03/05/16 07:00 03/08/16 09:42 Miscellaneous Information 1 Q361D XX 03/05/16 07:00 03/05/16 20:52 (Chlorhexidine 2% Cloth) Taper DAILY@04 TOP 03/06/16 04:00 03/02/17 03:59 03/12/16 04:00 Chlorhexidine Gluconate 3 pack 3 pack UNSCH PRN TOP 03/05/16 07:00 (Lr 1000 ml Inj) 1,000 ml @ 150 mls/hr Q6H40M IV 03/06/16 01:00 Hold 03/12/16 14:36 (Heparin Inj) 5,000 units Q12HR SQ 03/09/16 21:00 03/13/16 08:28 Lisinopril 20 mg 20 mg Q12HR PO 03/11/16 21:00 Hold 03/12/16 07:57 Micafungin Sodium 150 mg/Sodium Chloride 100 ml @ 100 mls/hr Q24H IV 03/13/16 11:00 03/13/16 11:34 Metronidazole 100 ml @ 100 mls/hr Q8H IV 03/13/16 10:00 03/13/16 10:29 (Bumex Inj) 100 ml @ 8 mls/hr CONTINUOUS IV 03/13/16 11:45 03/13/16 13:06 (Albumin 25% Inj) 25 gm Q6HR IV 03/13/16 12:00 03/14/16 06:01 03/13/16 10:28 Insulin Human Regular 1 1 Q4HR SQ 03/13/16 12:00 03/13/16 16:07 (NS 1000 ml Inj) 1,000 ml @ 42 mls/hr [id number] IV 03/13/16 09:45 03/13/16 10:04 Metoprolol Tartrate 2.5 mg 2.5 mg Q6HR IV PUSH 03/13/16 12:00 03/13/16 11:33 (Merrem Inj/NS Inj) 100 ml @ 200 mls/hr Q12H IV 03/14/16 01:00 Hydromorphone HCl 0.5 mg 0.5 mg Q4H PRN IV PUSH 03/13/16 15:30 03/13/16 15:55 (NS 1000 ml Inj) 1,000 ml @ 0 mls/hr Q0M PRN IV 03/13/16 17:19 UNV (Benadryl) 25 mg UNSCH PRN PO 03/13/16 17:30 UNV Family History Noncontributory Social History Denies smoking or alcohol use Physical Exam Vital Signs Vital Signs Date Time Temp Pulse Resp B/P Pulse Ox O2 Delivery O2 Flow Rate FiO2 03/13/16 16:00 82 03/13/16 16:00 98.6 82 25 153/67 96 03/13/16 14:00 84 03/13/16 12:00 82 03/13/16 12:00 98.2 74 25 131/60 94 03/13/16 10:00 67 03/13/16 08:41 98 Nasal Cannula 2.00 03/13/16 08:00 80 03/13/16 08:00 97.7 80 26 136/66 100 03/13/16 07:00 98 Nasal Cannula 2.00 03/13/16 06:00 81 03/13/16 04:00 98.1 79 21 120/60 93 03/13/16 04:00 79 03/13/16 02:00 79 03/13/16 00:00 73 03/13/16 00:00 98.2 73 20 95/51 96 03/12/16 22:00 91 03/12/16 20:00 110 03/12/16 20:00 99.8 110 26 118/63 94 03/12/16 19:38 94 Nasal Cannula 2.00 03/12/16 19:00 94 Nasal Cannula 2.00 03/12/16 18:00 116 Physical Exam GENERAL: Obese patient increasing shortness of breath. SKIN: Warm and dry. HEAD: Normocephalic. EYES: No scleral icterus. No injection or drainage. NECK: Supple, trachea midline. JVD 9 cm no lymphadenopathy. CARDIOVASCULAR: Tachycardia RESPIRATORY: Bilateral Rales in accessory muscles used GASTROINTESTINAL: Abdomen tender, distended. EXTREMITIES: No cyanosis, 3-4 plus edema. NEUROLOGICAL: Awake, alert, and oriented x 3. Laboratory Laboratory Tests Test 03/13/16 03/13/16 03/13/16 03/13/16 04:49 10:45 11:03 12:32 White Blood Count 35.3 Red Blood Count 3.45 Hemoglobin 9.4 Hematocrit 30.1 Mean Corpuscular Volume 87.3 Mean Corpuscular Hemoglobin 27.3 Mean Corpuscular Hemoglobin 31.3 Concent Red Cell Distribution Width 15.5 Platelet Count 325 Mean Platelet Volume 9.7 Neutrophils (%) (Auto) Lymphocytes (%) (Auto) Monocytes (%) (Auto) Eosinophils (%) (Auto) Basophils (%) (Auto) Neutrophils # (Auto) Lymphocytes # (Auto) Monocytes # (Auto) Eosinophils # (Auto) Basophils # (Auto) CBC Comment AUTO DIFF Differential Total Cells 100 Counted Neutrophils % (Manual) 87 Band Neutrophils % 6 Lymphocytes % 2 Monocytes % 3 Neutrophils # (Manual) 33.5 Metamyelocytes 1 Myelocytes 1 Differential Comment FINAL DIFF MANUAL Platelet Estimate NORMAL Platelet Morphology Comment NORMAL Ovalocytes 1+ Acanthocytes OCC Keratocytes OCC Sodium Level 140 Potassium Level 4.6 Chloride Level 106 Carbon Dioxide Level 24.4 Anion Gap 10 Blood Urea Nitrogen 62 Creatinine 2.39 Estimat Glomerular Filtration 25 Rate Random Glucose 229 Calcium Level 10.0 Phosphorus Level 4.5 Magnesium Level 2.2 Total Bilirubin 0.6 Aspartate Amino Transf 43 (AST/SGOT) Alanine Aminotransferase 34 (ALT/SGPT) Alkaline Phosphatase 118 Total Protein 6.6 Albumin 1.6 Urine Color YELLOW Urine Turbidity HAZY Urine pH 5.0 Urine Specific [place] 1.011 Urine Protein TRACE Urine Glucose (UA) NEG Urine Ketones NEG Urine Occult Blood TRACE Urine Nitrite NEG Urine Bilirubin NEG Urine Urobilinogen LESS THAN 2.0 Urine Leukocyte Esterase SMALL Urine RBC 5 Urine WBC 10 Urine Squamous Epithelial <1 Cells Urine Amorphous Sediment RARE Urine Bacteria MOD Urine Mucus FEW Urine Eosinophils NONE SEEN Urine Random Creatinine GREATER THAN 40.0 Urine Random Sodium 102 Lactic Acid Level 1.1 Total Creatine Kinase 29 Amylase Level 53 Lipase 136 Prothrombin Time 11.7 Prothromb Time International 1.1 Ratio Activated Partial 23.8 Thromboplast Time Fibrinogen 415 Test 03/13/16 16:22 Blood Gas Puncture Site LT RADIAL Blood Gas Patient Temperature 98.6 Blood Gas HCO3 26 Blood Gas Base Excess 0.4 Blood Gas Oxygen Saturation 90 Arterial Blood pH 7.33 Arterial Blood Partial 51 Pressure CO2 Arterial Blood Partial 70 Pressure O2 Arterial Blood Oxygen Content 12.0 Arterial Blood 1.6 Carboxyhemoglobin Arterial Blood Methemoglobin 0.9 Blood Gas Hemoglobin 9.4 Oxygen Delivery Device NASAL CANNULA Blood Gas Liter Flow 2.5 Date/Time Procedure Status Source Growth 03/13/16 11:25 Aerobic Blood Culture Received Blood Other Pending 03/13/16 11:25 Anaerobic Blood Culture Received Blood Other Pending Result Diagram: 03/13/16 0449 03/13/16 0449 Imaging Last Impressions Chest X-Ray 03/12/16 0000 Signed Impressions: Service Date/Time: Saturday, March 12, 2016 15:26 - CONCLUSION: Mild left lung base atelectasis and/or infiltrate is seen. Abisai Lundy MD Abdomen/Pelvis CT 03/12/16 0000 Signed Impressions: Service Date/Time: Saturday, March 12, 2016 16:59 - CONCLUSION: Worsening acute pancreatitis. Abisai Lundy MD ADDENDUM: Not mentioned above are bubbles of gas involving the cecum and ascending colon difficult to exclude pneumatosis, however they appear to be towards the dependent portion of the bowel wall and therefore possibility of pneumatosis intestinalis should be entertained. Abisai Lundy MD Abdomen X-Ray 03/09/16 0000 Signed Impressions: Service Date/Time: February 11:11 - CONCLUSION: 1. The tip of the weighted feeding tube is located in the descending portion of the duodenum. Scar Resendez MD GI Procedure 03/05/16 0000 Signed Impressions: Service Date/Time: Friday, March 04, 2016 23:02 - CONCLUSION: ERCP as above. Vidal Ye MD Gall Bladder Ultrasound 03/04/16 0000 Signed Impressions: Service Date/Time: Friday, March 04, 2016 19:36 - CONCLUSION: 1. Thick-walled gallbladder with some pericholecystic fluid and multiple gallstones in the region of the neck. The findings are suggestive of acute cholecystitis. Clinical correlation is recommended. 2. Fatty liver. 3. Minimal ascites within Polanco's pouch. 4. Poor visualization of the pancreas due to shadowing bowel gas. Odilon Butler MD Cholangiopancreatography MRI 03/04/16 0000 Signed Impressions: Service Date/Time: Friday, March 04, 2016 18:24 - CONCLUSION: 1. Extensive edema throughout the retroperitoneum and pancreas. No abscess or pseudocyst. 2. Tiny layering gallstones within the gallbladder. No discrete common bile duct stone. There is tapering of the common bile duct within the pancreatic head felt to be secondary to the edema within the pancreas. No discrete mass or choledocholithiasis. No intrahepatic or extrahepatic ductal dilatation. Maxwell Hsu Jr., MD Assessment and Plan Problem List: (1) Acute renal failure Plan: Patient will need to hemodialysis and she is tachypneic increasing shortness of breath and I discussed the care with Dr. Bowie, she'll need a Vas- Cath and hemodialysis to get fluid off or she may still need intubation at some point the she has gained the more than 17 kg of fluid and body weight since admission and she has been tried on Bumex drip, she is in multiorgan failure due to pancreatitis and likely has developed acute tubular necrosis due to severe sepsis (2) Anasarca Plan: Need hemodialysis continue to get fluid off (3) Pancreatitis, acute Plan: She will be observed (4) Severe sepsis with acute organ dysfunction Plan: ID is following on meropenem and micafungin (5) Cholangitis Plan: As above Problem Qualifiers (1) Acute renal failure: Qualified Code: N17.0 - Acute renal failure with tubular necrosis (2) Pancreatitis, acute: Estela Lares MD Mar 13, 2016 17:36
--- NOTE | 2016-03-13 18:32 | RADRPT ---
EXAM DATE/TIME: 03/13/2016 16:39 [facility] COMPARISON: No previous studies available for comparison. INDICATIONS : Increased BUN/creatine MEDICAL HISTORY : Hypertension. Pancreatitis. Carcinoma, breast. SURGICAL HISTORY : Mastectomy, right. ENCOUNTER: Initial ACUITY: 1 day PAIN SCORE: 4/10 LOCATION: Bilateral flank MEASUREMENTS: RIGHT KIDNEY: 10.8 x 6.1 x 6.1 cm LEFT KIDNEY: 11.4 x 6.7 x 6.3 cm FINDINGS: There is no hydronephrosis. No definite solid mass is identified. No definite stone is identified f or technique. The bladder is grossly intact for technique and not being completely distended during t he exam. CONCLUSION: Unremarkable renal ultrasound. Abisai Lundy MD on March 13, 2016 at 18:29 Board Certified Radiologist. This report was verified electronically.
[2016-03-13] MEDS: LABETALOL HCL 100 MG/20 ML VIAL IV PUSH PRN (18:35)
--- NOTE | 2016-03-13 20:55 | PD.PROCEDR ---
Procedure Note Procedure Internal Jugular Dialysis Catheter Placement A time-out was completed verifying correct patient, procedure, site, positioning , and special equipment if applicable. The patient was placed in a dependent position appropriate for central line placement based on the vein to be cannulated. The patients left neck was prepped and draped in sterile fashion. 1 % Lidocaine was used to anesthetize the surrounding skin area. A double lumen dialysis catheter was introduced into the the internal jugular vein using the Seldinger technique and under ultrasound guidance. The catheter was threaded smoothly over the guide wire and appropriate blood return was obtained. Each lumen of the catheter was evacuated of air and flushed with sterile saline. The catheter was then sutured in place to the skin and a sterile dressing applied. Estimated Blood Loss: 1 ml The patient tolerated the procedure well and there were no complications. Alexandre Stafford MD Mar 13, 2016 20:55
--- NOTE | 2016-03-13 21:04 | RADRPT ---
EXAM DATE/TIME: 03/13/2016 20:35 [facility] COMPARISON: CHEST SINGLE AP, March 12, 2016, 15:26. INDICATIONS : Central line placement. MEDICAL HISTORY : Carcinoma, breast. Pancreatitis. Hypertension SURGICAL HISTORY : Hysterectomy. ENCOUNTER: Subsequent ACUITY: 1 week PAIN SCORE: Non-responsive. LOCATION: Bilateral chest FINDINGS: The Dobbhoff tube is present with tip not visualized. Mild left lung base atelectasis and/or infiltra te is seen. Left IJ line is present with tip overlapping the expected region of the SVC. No definite pneumothorax is seen for technique. CONCLUSION: Line placed and no pneumothorax. Abisai Lundy MD on March 13, 2016 at 21:00 Board Certified Radiologist. This report was verified electronically.
[2016-03-13 21:11] LABS: ALKALINE PHOSPHATASE 111 U/L (45-117); ALT (GPT) 28 U/L (10-53); AST (GOT) 37 U/L (15-37); BLOOD UREA NITROGEN 66 MG/DL (7-18); GLOMERULAR FILTRATION RATE 25 ML/MIN (>89); MAGNESIUM 2.3 MG/DL (1.5-2.5); POTASSIUM 4.5 MEQ/L (3.5-5.1); SODIUM (NA) 140 MEQ/L (136-145); TOTAL BILIRUBIN ADULT 0.7 MG/DL (0.2-1.0)
[2016-03-13 21:12] LABS: ANION GAP 9 MEQ/L (5-15); BICARBONATE 24.9 MEQ/L (21.0-32.0); CHLORIDE 106 MEQ/L (98-107)
[2016-03-14] VITALS (14 sets, daily range): BP systolic 104–159; BP diastolic 56–75; PULSE 102–122; RESP 32–36; TEMP 98.9–102; O2SAT 93–99
[2016-03-14] MEDS: ALBUMIN HUMAN 25% 25 GM/100 ML BAGP IV SCH ×2 (00:44→05:25)
[2016-03-14] MEDS: INSULIN NovoLIN REGULAR SUPPLEMENTAL SCALE SQ SCH ×6 (00:45→20:22)
[2016-03-14] MEDS: HYDROmorphone HCL PF 1 MG/ML VIAL IV PRN ×2 (00:49→06:00)
[2016-03-14] MEDS: MEROPENEM INJ 1,000 MG in SODIUM CHLORIDE 0.9% INJ 100 ML IV SCH ×2 (01:00→13:56)
[2016-03-14] MEDS: metroNIDAZOLE 500 MG INJ 100 ML IV SCH ×3 (03:55→17:01)
[2016-03-14] MEDS: CHLORHEXIDINE GLUCONATE 2 % 1 PACK (2 CLOTHS) TOP SCH (04:00)
[2016-03-14 04:15] LABS: AUTOMATED NEUTROPHIL # 28.9 TH/MM3 (1.8-7.7); BASOPHIL # 0.1 TH/MM3 (0-0.2); BASOPHIL % 0.4 % (0.0-2.0); EOSINOPHIL # 0.1 TH/MM3 (0-0.4); EOSINOPHIL % 0.3 % (0.0-4.0); HEMATOCRIT 28.8 % (35.0-46.0); LYMPH % 2.7 % (9.0-44.0); LYMPHOCYTE # 0.9 TH/MM3 (1.0-4.8); MEAN CELL VOLUME 87.4 FL (80.0-100.0); MEAN CORPUSCULAR HEMOGLOBIN 27.5 PG (27.0-34.0); MEAN CORPUSCULAR HGB CONC 31.5 % (32.0-36.0); MONO % 5.6 % (0.0-8.0); PLATELET COUNT 367 TH/MM3 (150-450); RED CELL DISTRIBUTION WIDTH 15.6 % (11.6-17.2); WHITE BLOOD COUNT 31.8 TH/MM3 (4.0-11.0)
[2016-03-14 04:16] LABS: HEMO FLAGS AUTO DIFF
[2016-03-14 04:55] LABS: BANDS 24 % (0-6); CORRECTED NUCLEATED RBC 1 /100 WBC (0-0); EOSINOPHILS 1 % (0-4); MYELOCYTES 2 % (0-0); NEUTROPHIL # MANUAL DIFF 30.5 TH/MM3 (1.8-7.7); PLATELET ESTIMATE SMEAR NORMAL (NORMAL); PLATELET MORPHOLOGY NORMAL (NORMAL); POLYS (SEG NEUTROPHILS) 70 % (16-70); SCAN/DIFF FINAL DIFF MANUAL; TOXIC GRANULATION 1+ (NORMAL); WBC DIFF SAMPLE 100
[2016-03-14 04:56] LABS: ALKALINE PHOSPHATASE 107 U/L (45-117); ALT (GPT) 27 U/L (10-53); ANION GAP 10 MEQ/L (5-15); AST (GOT) 36 U/L (15-37); BICARBONATE 26.5 MEQ/L (21.0-32.0); BLOOD UREA NITROGEN 58 MG/DL (7-18); CHLORIDE 105 MEQ/L (98-107); GLOMERULAR FILTRATION RATE 28 ML/MIN (>89); MAGNESIUM 2.2 MG/DL (1.5-2.5); SODIUM (NA) 141 MEQ/L (136-145); TOTAL BILIRUBIN ADULT 0.9 MG/DL (0.2-1.0)
[2016-03-14 04:58] LABS: POTASSIUM 4.2 MEQ/L (3.5-5.1)
[2016-03-14] MEDS: METOPROLOL TARTRATE 5 MG/5 ML VIAL IV PUSH SCH ×4 (05:25→17:01)
[2016-03-14] MEDS: BUMETANIDE INJ 100 ML IV SCH (06:23)
[2016-03-14] MEDS: DOCUSATE SODIUM 100 MG CAP PO SCH ×2 (07:37→20:05)
[2016-03-14] MEDS: HEPARIN SODIUM - SQ 10,000 UNITS/ML VIAL SQ SCH ×2 (07:37→20:05)
[2016-03-14] MEDS: PANTOPRAZOLE SODIUM 40 MG VIAL IV SCH (07:37)
[2016-03-14] MEDS: SODIUM CHLORIDE 0.9% FLUSH 5 ML FLUSH IV FLUSH SCH ×2 (07:38→20:06)
[2016-03-14] MEDS: SODIUM CHLOR 0.9% 1000 ML INJ 1,000 ML IV SCH (07:38)
[2016-03-14] MEDS: EPOETIN ALFA 10,000 UNITS/ML VIAL IV PRN (08:14)
[2016-03-14] MEDS: HEPARIN SODIUM - IV 10,000 UNITS/10 ML VIAL PRN (08:14)
[2016-03-14] MEDS: SODIUM CHLOR 0.9% 1000 ML INJ 1,000 ML IV PRN (08:14)
[2016-03-14] MEDS: GENTAMICIN SULFATE (DIALYSIS USE ONLY) 20 MG/2 ML VIAL IV PRN (08:15)
[2016-03-14] MEDS ORDERED: LACTULOSE SYRUP 20 GM/30 ML CUP PO ONE (08:45)
--- NOTE | 2016-03-14 08:51 | HHI.CCPN ---
Subjective Remarks/Hospital Course > 48 hour history of epigastric pain, vomiting. GB US reveals cholecystitis with stones in neck. MRCP - pancreatitis, ducts not dilated. Received stent into a bile duct secondary to stricture due to pancreatic head edema. [facility] re -consulted today 03/12 due to patient's tachypnea and abdominal distention. 03/13 - Patient appears significantly more acutely ill since I last saw her . Answers questions in 1-2 word responses. Resting in bed with quite distant added. Diffuse in all 4 quadrants abdominal stated to be Pain 10 out of 10. Tube feeds on hold. Decreased urine output noted. Subjective 03/14: Tmax 100. Currently 98.9. Status post -4 L hemodialysis yesterday. Breathing appears intermittently tachypneic and labored however she is more alert today and able to verbally complete sentences today. No bowel movement yesterday. Tube feeds currently off. Objective Vital Signs Date Time Temp Pulse Resp B/P Pulse Ox O2 Delivery O2 Flow Rate FiO2 03/14/16 08:08 97 Nasal Cannula 3.00 03/14/16 06:00 103 03/14/16 04:00 98.9 33 155/72 Intake and Output 03/13/16 03/13/16 03/13/16 07:59 15:59 23:59 Intake Total 1269 ml 832 ml 500 ml Output Total 150 ml 200 ml 610 ml Balance 1119 ml 632 ml -110 ml Result Diagram: 03/14/16 0331 03/14/16 0331 Other Results Microbiology Date/Time Procedure Status Source Growth 03/13/16 11:25 Aerobic Blood Culture Resulted Blood Other Pending 03/13/16 11:25 Anaerobic Blood Culture - Final Resulted Blood Other QNS - SEE AEROBE REPORT Imaging Last Impressions Renal Ultrasound 03/13/16 0000 Signed Impressions: Service Date/Time: Sunday, March 13, 2016 16:39 - CONCLUSION: Unremarkable renal ultrasound. Abisai Lundy MD Chest X-Ray 03/13/16 0000 Signed Impressions: Service Date/Time: Sunday, March 13, 2016 20:35 - CONCLUSION: Line placed and no pneumothorax. Abisai Lundy MD Abdomen/Pelvis CT 03/12/16 0000 Signed Impressions: Service Date/Time: Saturday, March 12, 2016 16:59 - CONCLUSION: Worsening acute pancreatitis. Abisai Lundy MD ADDENDUM: Not mentioned above are bubbles of gas involving the cecum and ascending colon difficult to exclude pneumatosis, however they appear to be towards the dependent portion of the bowel wall and therefore possibility of pneumatosis intestinalis should be entertained. Abisai Lundy MD Abdomen X-Ray 03/09/16 0000 Signed Impressions: Service Date/Time: February 11:11 - CONCLUSION: 1. The tip of the weighted feeding tube is located in the descending portion of the duodenum. Scar Resendez MD GI Procedure 03/05/16 0000 Signed Impressions: Service Date/Time: Friday, March 04, 2016 23:02 - CONCLUSION: ERCP as above. Vidal Ye MD Gall Bladder Ultrasound 03/04/16 0000 Signed Impressions: Service Date/Time: Friday, March 04, 2016 19:36 - CONCLUSION: 1. Thick-walled gallbladder with some pericholecystic fluid and multiple gallstones in the region of the neck. The findings are suggestive of acute cholecystitis. Clinical correlation is recommended. 2. Fatty liver. 3. Minimal ascites within Polanco's pouch. 4. Poor visualization of the pancreas due to shadowing bowel gas. Odilon Butler MD Cholangiopancreatography MRI 03/04/16 0000 Signed Impressions: Service Date/Time: Friday, March 04, 2016 18:24 - CONCLUSION: 1. Extensive edema throughout the retroperitoneum and pancreas. No abscess or pseudocyst. 2. Tiny layering gallstones within the gallbladder. No discrete common bile duct stone. There is tapering of the common bile duct within the pancreatic head felt to be secondary to the edema within the pancreas. No discrete mass or choledocholithiasis. No intrahepatic or extrahepatic ductal dilatation. Maxwell Hsu Jr., MD Objective Remarks GENERAL: 66-year-old AA female, morbidly obese, critically ill appearing, currently resting in bed in mild respiratory distress SKIN: Warm and dry. No rash HEAD: Atraumatic. Normocephalic. EYES: Pupils equal and round around 3 mm bilaterally and reactive. No scleral icterus. No injection or drainage. ENT: No nasal bleeding or discharge. Mucous membranes pink and moist. Hayes fed tube in right nares NECK: Trachea midline. No JVD. Left hemodialysis catheter clean dry and intact CARDIOVASCULAR: Regular rate and rhythm. S1, S2. No S4. Without murmur RESPIRATORY: Somewhat tachypnea however very few crackles appreciated. Distant breath sounds. Symmetrical excursion. Shallow respirations. GASTROINTESTINAL: Abdomen obese. Tender to palpation in all quadrants with no rebound. Voluntary guarding. No rigidity. Hypoactive bowel sounds MUSCULOSKELETAL: Extremities with 1-2+ lower extremity pedal edema/anasarca- like. No obvious deformities. NEUROLOGICAL: Awake and alert. No obvious cranial nerve deficits. Motor grossly within normal limits. Five out of 5 muscle strength in the arms and legs. Able to answer 1 or 2 words to questions PSYCHIATRIC: Depressed mood and affect. A/P Problem List: (1) Severe sepsis with acute organ dysfunction ICD Code: A41.9 Status: Acute (2) Cholangitis ICD Code: K83.0 Status: Acute (3) Hypertensive urgency ICD Code: I16.0 Status: Acute Assessment and Plan Neuro/Psych: Pain management for acute necrotizing pancreatitis Acetaminophen for fever [place] 5/325 one every 4 hours/ morphine 2 mg every 3 hours hours when necessary for pain management CV: Severe sepsis from cholangitis/necrotizing pancreatitis Hypertension by history Dyslipidemia Lactic acidosis - resolved - appears fluid overloaded, +18 kg since admission - repeat Lactate 03/07 6 AM normal - Holding home medications lisinopril/HCTZ in light of acute kidney injury. - Noted elevated HDL/LDL/total cholesterol - triglycerides within normal limits Consider statin when appropriate once LFTs normalize - As needed labetalol, hydralazine, Nitropaste for blood pressure control of present - Previously on metoprolol 50 mg twice a day with some SVT during this hospitalization. We'll switch to IV Lopressor 2.5 every 6 hours while nothing by mouth - 2-D echo EF 55 - 60%. Trace MR. ANNIE 39 mmHg Resp: Acute respiratory insufficiency likely secondary to volume overload - Nasal cannula to maintain saturations greater than equal to 92% - Incentive spirometry while awake - Chest x-ray 03/13 after line placement reveals possible right lower lobe effusion/atelectasis GI: Status post ERCP/placement of stenting, bile duct secondary to stenosis Acute necrotizing Pancreatitis Possible pneumatosis intestinalis Transaminitis Hypo-albuminemia CT abdomen/pelvis 03/12 revealed multiple gallstones/worsening pancreatitis and possible pneumatosis intestinalis involving the cecum and the ascending colon Dr. Ceballos/general surgery following Discussed with Dr. Moulton yesterday. Agreed with hemodialysis and attempt to remove extra cellular fluid while maintaining intravascular volume. Difficult situation 14-24 intra-abdominal bladder pressures - Dr. Lucero/GI performed ERCP 03/04 with stent placement, distal common bile duct 8.5 [place] 7 cm secondary to stricture - Ultrasound revealed thickening in the gallbladder with pericholecystic fluid. Tiny gallstones noted. - MRCP revealed retroperitoneal edema, with edema causing potentially narrowing of the distal common bile duct - Protonix for GI prophylaxis - Colace/ Senokot for bowel regimen - Autoimmune pancreatitis - IgG4 pending : Azul if needed for accurate I's and O's in critically ill patient Endo: Hyperglycemia of critical illness Sliding-scale insulin. Accu-Cheks every 6 hours to maintain euglycemia. Low regimen. Levemir 10 units twice a day held in light of nothing by mouth status Renal: LOI - fluid overload. +16 kg since admission - Creatinine worsening and currently 2.1 - Avoid nephrotoxic drugs. Noted lisinopril/adequate as it held - attempt to diurese with Bumex drip at 2 mg an hour - Started albumin 25 g every 6 hours 4 dosages - Nephrology consultation. Need of hemodialysis with the next 24-48 hours -4 L yesterday. Urinalysis planned for today -Negative urine eosinophils renal ultrasound - Follow BMP in a.m. Heme/Onc: History of breast cancer status post right mastectomy Leukocytosis Normocytic anemia CBC/coags ordered this a.m. Currently holding Letrozole 2.5 mg daily with elevated LFTs. Resume when clinically indicated ID: Possible necrotizing pancreatitis/pneumatosis intestinalis Day #2 micafungin/Merrem ID consult appreciated Pertinent cultures 03/04 - urine culture - negative 03/04 - blood cultures 2 - negative 03/07 - blood cultures 2 - negative 03/13 - blood cultures 2 - pending FEN: Replace electrolytes as clinically indicated Currently nothing by mouth for general surgery On normal saline at 42 cc an hour MSK: Out of bed/PT evaluate and treat Access - Utilize peripheral IV. Central line if clinically indicated Prophylaxis - GI - Protonix - DVT - SCD/heparin Critical Care: The total critical care time was 35 minutes. Time to perform other separately billable procedures was not included in the critical care time. Discuss with daughter and granddaughter yesterday at length. Discuss with daughter at bedside this morning. Care plan discussed. All questions answered. Rosalio Bowie MD Mar 14, 2016 08:51
[2016-03-14] MEDS: POLYETHYLENE GLYCOL 17 GM PKG PO SCH (09:21)
[2016-03-14] MEDS: MORPHINE SULFATE 4 MG/ML INJ IV PUSH PRN ×3 (10:25→20:06)
[2016-03-14] MEDS ORDERED: SODIUM CHLORIDE 0.9% FLUSH 5 ML FLUSH IVF PRN (12:00)
--- NOTE | 2016-03-14 12:01 | PD.PROCEDR ---
Central Line Procedure REASON FOR PROCEDURE Central venous access PROCEDURE PERFORMED Central line placement: Right internal jugular vein CONSENT Informed consent for procedure was obtained. The risks and benefits of the procedure were discussed to include but limited to bleeding, clot formation, infection, and even . ANESTHESIA Local injection of 1% Lidocaine DESCRIPTION OF THE PROCEDURE The patient was placed in supine, mild Trendelenburg position. The area was exposed and cleansed with ChloraPrep, times two. Large sterile drape was used to cover the patient, with the site exposed, under sterile conditions including cap, face mask, sterile gown, and sterile gloves. On single attempt, the introducer needle was inserted with negative pressure in syringe and venous flash was obtained. The guide wire was then advanced without any restriction and the needle was removed. The dilator was used without any complications. Using Seldinger technique the triple-lumen catheter was advanced over the guide wire to a depth of 17 centimeters. The guide wire was removed. All ports were aspirated with dark venous blood return and flushed easily with sterile saline. All ports were capped. Antibiotic disc was placed around central line at puncture site. The central line was secured to the skin with two interrupted 2.0 silk sutures. The area was bandaged with sterile see-through central line bandage. RADIOLOGICAL DATA Ultrasound guidance was used to locate the right internal jugular vein. Doppler /color flow was used to confirm venous flow. COMPLICATIONS: No apparent complications ESTIMATED BLOOD LOSS: Less than 5 cc. Rosalio Bowie MD Mar 14, 2016 12:01
[2016-03-14] MEDS: MICAFUNGIN INJ 150 MG in SODIUM CHLORIDE 0.9% INJ 100 ML IV SCH (12:22)
[2016-03-14] MEDS: SODIUM CHLORIDE 0.9% FLUSH 5 ML FLUSH IVF SCH (12:22)
[2016-03-14] MEDS: ACETAMINOPHEN/HYDROcodone 325 MG/5 MG TAB PO PRN (12:40)
[2016-03-14] MEDS: ACETAMINOPHEN 325 MG TAB PO PRN (12:40)
--- NOTE | 2016-03-14 12:48 | RADRPT ---
EXAM DATE/TIME: 03/14/2016 12:22 [facility] COMPARISON: CHEST SINGLE AP, March 13, 2016, 20:35. INDICATIONS : Central line placement. MEDICAL HISTORY : Hypertension. Carcinoma, breast. SURGICAL HISTORY : Mastectomy, right. Hysterectomy. ENCOUNTER: Subsequent ACUITY: 2 weeks PAIN SCORE: Non-responsive. LOCATION: Right chest FINDINGS: There is a new right-sided central line in place. A central line appears to be in good position. Ther e is no pneumothorax. There is a left-sided central line remaining in position. There is prominence o f the pulmonary vasculature suggestive of pulmonary venous congestion. Heart size is stable. Stable a telectasis in the left lower lung. There is a feeding tube in place. CONCLUSION: 1. Right-sided central line in place. 2. No pneumothorax. Wilver Bond MD on March 14, 2016 at 12:45 Board Certified Radiologist. This report was verified electronically.
--- NOTE | 2016-03-14 13:37 | HHI.NPPN ---
Subjective Renal Failure: Acute Objective Data Data 03/13/16 03/14/16 19:00 07:00 Intake Total 832 ml 946 ml Output Total 200 ml 4950 ml Balance 632 ml -4004 ml Intake Oral 0 ml IV Total 672 ml 746 ml Tube Feeding 0 ml Albumin 100 ml 200 ml Tube Irrigant 60 ml Output Urine Total 200 ml 950 ml Hemodialysis 4000 ml # Bowel Movements 0 Vital Signs Date Time Temp Pulse Resp B/P Pulse Ox O2 Delivery O2 Flow Rate FiO2 03/14/16 12:00 118 03/14/16 12:00 102.0 118 36 144/68 97 03/14/16 10:00 122 03/14/16 08:08 97 Nasal Cannula 3.00 03/14/16 08:00 103 03/14/16 08:00 100.1 107 35 157/75 97 03/14/16 07:00 90 Nasal Cannula 3.00 03/14/16 06:00 103 03/14/16 04:00 110 03/14/16 04:00 98.9 110 33 155/72 99 03/14/16 02:00 111 03/14/16 00:00 100.0 115 34 104/56 96 03/14/16 00:00 115 03/13/16 22:00 108 03/13/16 20:00 99.8 107 31 151/70 93 03/13/16 20:00 107 03/13/16 19:46 93 Nasal Cannula 03/13/16 19:00 93 Nasal Cannula 2.00 03/13/16 18:00 100 03/13/16 16:00 82 03/13/16 16:00 98.6 82 25 153/67 96 03/13/16 14:00 84 -: 03/14/16 0331 03/14/16 0331 Physical Exam General Appearance: Well Developed Neck Neck Exam: Neck Supple Pulmonary Resp Exam: Decreased Bases Cardiology CV Exam: Tachycardia Gastrointestinal/Abdomen GI Exam: Soft, Distended Extremeties Extremities Exam: Moderate Edema, Pitting Edema Neurologic Neuro Exam: Alert, Awake Assessment/Plan Problem List: (1) Acute renal failure Plan: patient received hemodialysis UF 4 L Yesterday and today again another 4 L, she has edema schedule another treatment for tomorrow continue supportive care for now dc Bumex drip (2) Anasarca Plan: improving with hemodialysis (3) Pancreatitis, acute Plan: She will be observed (4) Severe sepsis with acute organ dysfunction Plan: ID is following on meropenem, Metronidazole and micafungin (5) Cholangitis Plan: As above Problem Qualifiers (1) Acute renal failure: Qualified Code: N17.0 - Acute renal failure with tubular necrosis (2) Pancreatitis, acute: Estela Lares MD Mar 14, 2016 13:37
--- NOTE | 2016-03-14 14:19 | HHI.IDPN ---
Subjective Subjective Remarks is a 66-year-old woman who was admitted to the hospital with nausea and vomiting with severe abdominal pain and no po intake on admission.She also reports diarrhea prior to arrival. Patient reported chills on admission. No prior h/o gallstones or pancreatic issues. Being treated acute pancreatitis and acute cholangitis. Overnight events reviewed CT Abd/pelvis reviewed. No fevers UO low. s/p HD x 2 today. No rash No diarrhea Antibiotics Zosyn IV Diflucan oral Lines Line sites with no e/o infection Past Medical History reviewed. Allergies: Coded Allergies: No Known Allergies (Verified , 02/18/15) Objective . Vital Signs Date Time Temp Pulse Resp B/P Pulse Ox O2 Delivery O2 Flow Rate FiO2 03/14/16 12:00 118 03/14/16 12:00 102.0 118 36 144/68 97 03/14/16 10:00 122 03/14/16 08:08 97 Nasal Cannula 3.00 03/14/16 08:00 103 03/14/16 08:00 100.1 107 35 157/75 97 03/14/16 07:00 90 Nasal Cannula 3.00 03/14/16 06:00 103 03/14/16 04:00 110 03/14/16 04:00 98.9 110 33 155/72 99 03/14/16 02:00 111 03/14/16 00:00 100.0 115 34 104/56 96 03/14/16 00:00 115 03/13/16 22:00 108 03/13/16 20:00 99.8 107 31 151/70 93 03/13/16 20:00 107 03/13/16 19:46 93 Nasal Cannula 03/13/16 19:00 93 Nasal Cannula 2.00 03/13/16 18:00 100 03/13/16 16:00 82 03/13/16 16:00 98.6 82 25 153/67 96 03/13/16 03/13/16 03/14/16 15:00 23:00 07:00 Intake Total 832 ml 500 ml 446 ml Output Total 200 ml 610 ml 4340 ml Balance 632 ml -110 ml -3894 ml Intake Oral 0 ml IV Total 672 ml 400 ml 346 ml Tube Feeding 0 ml Albumin 100 ml 100 ml 100 ml Tube Irrigant 60 ml Output Urine Total 200 ml 610 ml 340 ml Hemodialysis 4000 ml # Bowel Movements 0 . Laboratory Tests Test 03/13/16 03/14/16 04:49 03:31 White Blood Count 35.3 TH/MM3 31.8 TH/MM3 Red Blood Count 3.45 MIL/MM3 3.30 MIL/MM3 Hemoglobin 9.4 GM/DL 9.1 GM/DL Hematocrit 30.1 % 28.8 % Mean Corpuscular Volume 87.3 FL 87.4 FL Mean Corpuscular Hemoglobin 27.3 PG 27.5 PG Mean Corpuscular Hemoglobin 31.3 % 31.5 % Concent Red Cell Distribution Width 15.5 % 15.6 % Platelet Count 325 TH/MM3 367 TH/MM3 Mean Platelet Volume 9.7 FL 9.7 FL Neutrophils (%) (Auto) % 91.0 % Lymphocytes (%) (Auto) % 2.7 % Monocytes (%) (Auto) % 5.6 % Eosinophils (%) (Auto) % 0.3 % Basophils (%) (Auto) % 0.4 % Neutrophils # (Auto) TH/MM3 28.9 TH/MM3 Lymphocytes # (Auto) TH/MM3 0.9 TH/MM3 Monocytes # (Auto) TH/MM3 1.8 TH/MM3 Eosinophils # (Auto) TH/MM3 0.1 TH/MM3 Basophils # (Auto) TH/MM3 0.1 TH/MM3 CBC Comment AUTO DIFF AUTO DIFF Differential Total Cells 100 100 Counted Neutrophils % (Manual) 87 % 70 % Band Neutrophils % 6 % 24 % Lymphocytes % 2 % 2 % Monocytes % 3 % 1 % Neutrophils # (Manual) 33.5 TH/MM3 30.5 TH/MM3 Metamyelocytes 1 % Myelocytes 1 % 2 % Differential Comment FINAL DIFF FINAL DIFF MANUAL MANUAL Platelet Estimate NORMAL NORMAL Platelet Morphology Comment NORMAL NORMAL Ovalocytes 1+ Acanthocytes OCC Keratocytes OCC Eosinophils % 1 % Nucleated Red Blood Cells 1 /100 WBC Toxic Granulation 1+ Laboratory Tests Test 03/12/16 03/13/16 03/13/16 03/13/16 16:30 04:49 11:03 19:35 Lactic Acid Level 1.2 mmol/L 1.1 mmol/L 1.3 mmol/L Total Bilirubin 0.6 MG/DL 0.6 MG/DL 0.7 MG/DL Direct Bilirubin 0.4 MG/DL Indirect Bilirubin 0.2 MG/DL Aspartate Amino Transf 41 U/L 43 U/L 37 U/L (AST/SGOT) Alanine Aminotransferase 34 U/L 34 U/L 28 U/L (ALT/SGPT) Alkaline Phosphatase 124 U/L 118 U/L 111 U/L Total Protein 6.8 GM/DL 6.6 GM/DL 7.4 GM/DL Albumin 1.7 GM/DL 1.6 GM/DL 2.4 GM/DL Amylase Level 62 U/L 53 U/L Lipase 149 U/L 136 U/L Sodium Level 140 MEQ/L 140 MEQ/L Potassium Level 4.6 MEQ/L 4.5 MEQ/L Chloride Level 106 MEQ/L 106 MEQ/L Carbon Dioxide Level 24.4 MEQ/L 24.9 MEQ/L Anion Gap 10 MEQ/L 9 MEQ/L Blood Urea Nitrogen 62 MG/DL 66 MG/DL Creatinine 2.39 MG/DL 2.35 MG/DL Estimat Glomerular Filtration 25 ML/MIN 25 ML/MIN Rate Random Glucose 229 MG/DL 181 MG/DL Calcium Level 10.0 MG/DL 10.1 MG/DL Phosphorus Level 4.5 MG/DL 4.3 MG/DL Magnesium Level 2.2 MG/DL 2.3 MG/DL Total Creatine Kinase 29 U/L Test 03/14/16 03:31 Sodium Level 141 MEQ/L Potassium Level 4.2 MEQ/L Chloride Level 105 MEQ/L Carbon Dioxide Level 26.5 MEQ/L Anion Gap 10 MEQ/L Blood Urea Nitrogen 58 MG/DL Creatinine 2.13 MG/DL Estimat Glomerular Filtration 28 ML/MIN Rate Random Glucose 166 MG/DL Calcium Level 9.8 MG/DL Phosphorus Level 3.9 MG/DL Magnesium Level 2.2 MG/DL Total Bilirubin 0.9 MG/DL Aspartate Amino Transf 36 U/L (AST/SGOT) Alanine Aminotransferase 27 U/L (ALT/SGPT) Alkaline Phosphatase 107 U/L Total Protein 7.5 GM/DL Albumin 3.0 GM/DL Microbiology Date/Time Procedure Status Source Growth 03/13/16 11:03 Aerobic Blood Culture - Preliminary Resulted Blood Other NO GROWTH IN 1 DAY 03/13/16 11:03 Anaerobic Blood Culture - Preliminary Resulted Blood Other NO GROWTH IN 1 DAY 03/13/16 11:25 Aerobic Blood Culture - Preliminary Resulted Blood Other NO GROWTH IN 1 DAY 03/13/16 11:25 Anaerobic Blood Culture - Final Resulted Blood Other QNS - SEE AEROBE REPORT Imaging Last Impressions Chest X-Ray 03/09/16 0000 Signed Impressions: Service Date/Time: February 13:11 - CONCLUSION: Left lower lobe atelectasis versus infiltrate is unchanged. Maxwell Hsu Jr., MD Abdomen X-Ray 03/09/16 0000 Signed Impressions: Service Date/Time: February 11:11 - CONCLUSION: 1. The tip of the weighted feeding tube is located in the descending portion of the duodenum. Scar Resendez MD Abdomen/Pelvis CT 03/08/16 0000 Signed Impressions: Service Date/Time: Tuesday, March 08, 2016 15:28 - CONCLUSION: Severe changes of pancreatitis, potentially with areas of hemorrhagic conversion. Darrian Engel MD GI Procedure 03/05/16 0000 Signed Impressions: Service Date/Time: Friday, March 04, 2016 23:02 - CONCLUSION: ERCP as above. Vidal Ye MD Gall Bladder Ultrasound 03/04/16 0000 Signed Impressions: Service Date/Time: Friday, March 04, 2016 19:36 - CONCLUSION: 1. Thick-walled gallbladder with some pericholecystic fluid and multiple gallstones in the region of the neck. The findings are suggestive of acute cholecystitis. Clinical correlation is recommended. 2. Fatty liver. 3. Minimal ascites within Polanco's pouch. 4. Poor visualization of the pancreas due to shadowing bowel gas. Odilon Butler MD Cholangiopancreatography MRI 03/04/16 0000 Signed Impressions: Service Date/Time: Friday, March 04, 2016 18:24 - CONCLUSION: 1. Extensive edema throughout the retroperitoneum and pancreas. No abscess or pseudocyst. 2. Tiny layering gallstones within the gallbladder. No discrete common bile duct stone. There is tapering of the common bile duct within the pancreatic head felt to be secondary to the edema within the pancreas. No discrete mass or choledocholithiasis. No intrahepatic or extrahepatic ductal dilatation. Maxwell Hsu Jr., MD Physical Exam GENERAL: Obese AAF patient, in no apparent distress. SKIN: No rashes, ecchymoses or lesions. Cool and dry. HEAD: Atraumatic. Normocephalic. No temporal or scalp tenderness. EYES: Pupils equal round and reactive. Extraocular motions intact. No scleral icterus. No injection or drainage. ENT: Nose without bleeding, purulent drainage or septal hematoma. Throat without erythema, tonsillar hypertrophy or exudate. Uvula midline. Airway patent. NECK: Trachea midline. Supple, nontender, no meningeal signs. CARDIOVASCULAR: HS audible. No murmur. RESPIRATORY: Clear to auscultation. Breath sounds equal bilaterally but decreased in the bases. GASTROINTESTINAL: Abdomen soft, tenderness in RUQ and epigastric region, distended, abd wall edema noted. MUSCULOSKELETAL: Generalized anasarca noted. NEUROLOGICAL: Awake and alert. Grossly non focal Psych: cooperative IV line sites with no e/o infection. Assessment & Plan Remarks SIRS possible Sepsis Acute Severe Pancreatitis with hemorrhage. Acute Pneumatosis Intestinalis (vs anasarca related bowel edema, cdiff) Acute cholangitis Recs: Continue Meropenem IV Continue Micafungin IV Continue Flagyl IV for Cdiff and Pneumatosis Intestinalis. D/w Follow cultures Follow clinically. Daew RN and patient. Cely Ayers MD Mar 14, 2016 14:19
[2016-03-14] MEDS ORDERED: ATROPINE SULFATE 1 MG/10 ML SYRINGE ONE (15:46)
[2016-03-14] MEDS ORDERED: EPINEPHrine HCL (1:10,000) 1 MG/10 ML SYRINGE ONE (15:46)
--- NOTE | 2016-03-14 16:21 | RADRPT ---
EXAM DATE/TIME: 03/14/2016 16:13 [facility] COMPARISON: No previous studies available for comparison. INDICATIONS : Sudden-onset altered mental status today. RADIATION DOSE: 48.77 CTDIvol (mGy) MEDICAL HISTORY : Hypertension. Carcinoma, breast. SURGICAL HISTORY : None. ENCOUNTER: Initial ACUITY: 1 day PAIN SCALE: 0/10 LOCATION: cranial TECHNIQUE: Multiple contiguous axial images were obtained of the head. Using automated exposure control and adj ustment of the mA and/or kV according to patient size, radiation dose was kept as low as reasonably a chievable to obtain optimal diagnostic quality images. FINDINGS: CEREBRUM: The ventricles are normal for age. No evidence of midline shift, mass lesion, hemorrhage or acute in farction. No extra-axial fluid collections are seen. POSTERIOR FOSSA: The cerebellum and brainstem are intact. The 4th ventricle is midline. The cerebellopontine angle i s unremarkable. EXTRACRANIAL: The visualized portion of the orbits is intact. SKULL: The calvaria is intact. No evidence of skull fracture. CONCLUSION: Normal examination. Jere Toro MD on March 14, 2016 at 16:17 Board Certified Radiologist. This report was verified electronically.
[2016-03-14] MEDS: LABETALOL HCL 100 MG/20 ML VIAL IV PUSH PRN (18:41)
--- NOTE | 2016-03-14 18:46 | HHI.PR ---
Subjective Subjective Notes lying in bed with abd pain Objective Vitals/I&O Vital Signs Date Time Temp Pulse Resp B/P Pulse Ox O2 Delivery O2 Flow Rate FiO2 03/14/16 18:00 109 03/14/16 16:00 99.9 32 143/64 93 03/14/16 08:08 Nasal Cannula 3.00 Labs Laboratory Tests Test 03/13/16 03/14/16 03/14/16 19:35 03:31 17:17 Sodium Level 140 141 Potassium Level 4.5 4.2 Chloride Level 106 105 Carbon Dioxide Level 24.9 26.5 Anion Gap 9 10 Blood Urea Nitrogen 66 58 Creatinine 2.35 2.13 Estimat Glomerular Filtration 25 28 Rate Random Glucose 181 166 Lactic Acid Level 1.3 Calcium Level 10.1 9.8 Phosphorus Level 4.3 3.9 Magnesium Level 2.3 2.2 Total Bilirubin 0.7 0.9 Aspartate Amino Transf 37 36 (AST/SGOT) Alanine Aminotransferase 28 27 (ALT/SGPT) Alkaline Phosphatase 111 107 Total Protein 7.4 7.5 Albumin 2.4 3.0 Hepatitis A IgM Antibody NEGATIVE Hepatitis B Surface Antigen NEGATIVE Hepatitis B Core IgM Antibody NEGATIVE Hepatitis C Antibody NEGATIVE White Blood Count 31.8 Red Blood Count 3.30 Hemoglobin 9.1 Hematocrit 28.8 Mean Corpuscular Volume 87.4 Mean Corpuscular Hemoglobin 27.5 Mean Corpuscular Hemoglobin 31.5 Concent Red Cell Distribution Width 15.6 Platelet Count 367 Mean Platelet Volume 9.7 Neutrophils (%) (Auto) 91.0 Lymphocytes (%) (Auto) 2.7 Monocytes (%) (Auto) 5.6 Eosinophils (%) (Auto) 0.3 Basophils (%) (Auto) 0.4 Neutrophils # (Auto) 28.9 Lymphocytes # (Auto) 0.9 Monocytes # (Auto) 1.8 Eosinophils # (Auto) 0.1 Basophils # (Auto) 0.1 CBC Comment AUTO DIFF Differential Total Cells 100 Counted Neutrophils % (Manual) 70 Band Neutrophils % 24 Lymphocytes % 2 Monocytes % 1 Eosinophils % 1 Neutrophils # (Manual) 30.5 Myelocytes 2 Nucleated Red Blood Cells 1 Differential Comment FINAL DIFF MANUAL Toxic Granulation 1+ Platelet Estimate NORMAL Platelet Morphology Comment NORMAL Ammonia 21 Date/Time Procedure Status Source Growth 03/13/16 11:25 Aerobic Blood Culture - Preliminary Resulted Blood Other NO GROWTH IN 1 DAY 03/13/16 11:25 Anaerobic Blood Culture - Final Resulted Blood Other QNS - SEE AEROBE REPORT Radiology Last Impressions GI Procedure 03/05/16 0000 Signed Impressions: Service Date/Time: Friday, March 04, 2016 23:02 - CONCLUSION: ERCP as above. Vidal Ye MD Chest X-Ray 03/04/16 1626 Signed Impressions: Service Date/Time: Friday, March 04, 2016 16:52 - CONCLUSION: 1. Mild cardiomegaly. 2. No acute focal pulmonary infiltrate or pulmonary vascular congestion. 3. Mild elevation of right hemidiaphragm. Odilon Butler MD Gall Bladder Ultrasound 03/04/16 0000 Signed Impressions: Service Date/Time: Friday, March 04, 2016 19:36 - CONCLUSION: 1. Thick-walled gallbladder with some pericholecystic fluid and multiple gallstones in the region of the neck. The findings are suggestive of acute cholecystitis. Clinical correlation is recommended. 2. Fatty liver. 3. Minimal ascites within Polanco's pouch. 4. Poor visualization of the pancreas due to shadowing bowel gas. Odilon Butler MD Cholangiopancreatography MRI 03/04/16 0000 Signed Impressions: Service Date/Time: Friday, March 04, 2016 18:24 - CONCLUSION: 1. Extensive edema throughout the retroperitoneum and pancreas. No abscess or pseudocyst. 2. Tiny layering gallstones within the gallbladder. No discrete common bile duct stone. There is tapering of the common bile duct within the pancreatic head felt to be secondary to the edema within the pancreas. No discrete mass or choledocholithiasis. No intrahepatic or extrahepatic ductal dilatation. Maxwell Hsu Jr., MD Narrative Exam distended poorly localized tenderness A/P Assessment and Plan pt with sepsis secondary to pancreatitis cont to hold TF can start TPN Hydrate cont abx per ID Josias Moulton MD Mar 14, 2016 18:46
[2016-03-14] MEDS: SENNOSIDES 8.6 MG TAB PO SCH (20:05)
[2016-03-15] VITALS (14 sets, daily range): BP systolic 119–167; BP diastolic 63–77; PULSE 88–118; RESP 29–37; TEMP 98.4–100.8; O2SAT 94–99
[2016-03-15] MEDS: MORPHINE SULFATE 4 MG/ML INJ IV PUSH PRN ×3 (00:21→23:28)
[2016-03-15] MEDS: METOPROLOL TARTRATE 5 MG/5 ML VIAL IV PUSH SCH ×5 (00:21→23:29)
[2016-03-15] MEDS: MEROPENEM INJ 1,000 MG in SODIUM CHLORIDE 0.9% INJ 100 ML IV SCH ×2 (00:22→13:09)
[2016-03-15] MEDS: INSULIN NovoLIN REGULAR SUPPLEMENTAL SCALE SQ SCH ×6 (00:22→21:41)
[2016-03-15] MEDS: LABETALOL HCL 100 MG/20 ML VIAL IV PUSH PRN ×4 (01:39→22:02)
[2016-03-15] MEDS: metroNIDAZOLE 500 MG INJ 100 ML IV SCH ×2 (01:39→09:04)
[2016-03-15] MEDS: CHLORHEXIDINE GLUCONATE 2 % 1 PACK (2 CLOTHS) TOP SCH (04:00)
[2016-03-15 04:13] LABS: AUTOMATED NEUTROPHIL # 20.4 TH/MM3 (1.8-7.7); BASOPHIL % 0.2 % (0.0-2.0); EOSINOPHIL # 0.2 TH/MM3 (0-0.4); EOSINOPHIL % 0.9 % (0.0-4.0); HEMATOCRIT 25.6 % (35.0-46.0); LYMPH % 3.3 % (9.0-44.0); LYMPHOCYTE # 0.8 TH/MM3 (1.0-4.8); MEAN CELL VOLUME 86.5 FL (80.0-100.0); MEAN CORPUSCULAR HEMOGLOBIN 28.3 PG (27.0-34.0); MEAN CORPUSCULAR HGB CONC 32.8 % (32.0-36.0); MONO % 9.2 % (0.0-8.0); NEUT % 86.4 % (16.0-70.0); PLATELET COUNT 390 TH/MM3 (150-450); RED BLOOD COUNT 2.96 MIL/MM3 (4.00-5.30); RED CELL DISTRIBUTION WIDTH 15.5 % (11.6-17.2); WHITE BLOOD COUNT 23.6 TH/MM3 (4.0-11.0)
[2016-03-15 04:22] LABS: HEMO FLAGS AUTO DIFF
[2016-03-15 04:36] LABS: ALKALINE PHOSPHATASE 98 U/L (45-117); ALT (GPT) 24 U/L (10-53); ANION GAP 13 MEQ/L (5-15); AST (GOT) 28 U/L (15-37); BICARBONATE 24.7 MEQ/L (21.0-32.0); BLOOD UREA NITROGEN 56 MG/DL (7-18); CHLORIDE 106 MEQ/L (98-107); GLOMERULAR FILTRATION RATE 30 ML/MIN (>89); MAGNESIUM 2.1 MG/DL (1.5-2.5); POTASSIUM 3.4 MEQ/L (3.5-5.1); SODIUM (NA) 144 MEQ/L (136-145); TOTAL BILIRUBIN ADULT 0.8 MG/DL (0.2-1.0)
[2016-03-15] MEDS: SODIUM CHLOR 0.9% 1000 ML INJ 1,000 ML IV PRN (07:13)
[2016-03-15] MEDS: GENTAMICIN SULFATE (DIALYSIS USE ONLY) 20 MG/2 ML VIAL IV PRN (07:14)
[2016-03-15] MEDS: HEPARIN SODIUM - IV 10,000 UNITS/10 ML VIAL PRN (07:14)
[2016-03-15 07:34] LABS: BANDS 18 % (0-6); EOSINOPHILS 2 % (0-4); METAMYELOCYTES 2 % (0-1); MYELOCYTES 1 % (0-0); NEUTROPHIL # MANUAL DIFF 22.4 TH/MM3 (1.8-7.7); PLASMA CELLS 1 % (0-0); PLATELET ESTIMATE SMEAR NORMAL (NORMAL); PLATELET MORPHOLOGY NORMAL (NORMAL); POLYS (SEG NEUTROPHILS) 74 % (16-70); SCAN/DIFF FINAL DIFF MANUAL; TOXIC GRANULATION 2+ (NORMAL); WBC DIFF SAMPLE 100
[2016-03-15] MEDS: HEPARIN SODIUM - SQ 10,000 UNITS/ML VIAL SQ SCH ×2 (08:01→21:40)
[2016-03-15] MEDS: POLYETHYLENE GLYCOL 17 GM PKG PO SCH (08:01)
[2016-03-15] MEDS: PANTOPRAZOLE SODIUM 40 MG VIAL IV SCH (08:01)
[2016-03-15] MEDS: SENNOSIDES 8.6 MG TAB PO SCH ×2 (08:02→21:40)
[2016-03-15] MEDS: SODIUM CHLORIDE 0.9% FLUSH 5 ML FLUSH IVF SCH (08:02)
[2016-03-15] MEDS: DOCUSATE SODIUM 100 MG CAP PO SCH ×2 (08:02→21:39)
[2016-03-15] MEDS: SODIUM CHLORIDE 0.9% FLUSH 5 ML FLUSH IV FLUSH SCH ×2 (08:02→21:42)
[2016-03-15] MEDS: SODIUM CHLOR 0.9% 1000 ML INJ 1,000 ML IV SCH (09:04)
--- NOTE | 2016-03-15 09:30 | HHI.CCPN ---
Subjective Remarks/Hospital Course > 48 hour history of epigastric pain, vomiting. GB US reveals cholecystitis with stones in neck. MRCP - pancreatitis, ducts not dilated. Received stent into a bile duct secondary to stricture due to pancreatic head edema. [facility] re -consulted today 03/12 due to patient's tachypnea and abdominal distention. 03/13 - Patient appears significantly more acutely ill since I last saw her . Answers questions in 1-2 word responses. Resting in bed with quite distant added. Diffuse in all 4 quadrants abdominal stated to be Pain 10 out of 10. Tube feeds on hold. Decreased urine output noted. 03/14: Tmax 100. Currently 98.9. Status post -4 L hemodialysis yesterday. Breathing appears intermittently tachypneic and labored however she is more alert today and able to verbally complete sentences today. No bowel movement yesterday. Tube feeds currently off. Subjective 03/15: Tmax 102. Currently 100.5. Status post -3.5 L hemodialysis today. More lethargic. TPN to be initiated today. Objective Vital Signs Date Time Temp Pulse Resp B/P Pulse Ox O2 Delivery O2 Flow Rate FiO2 03/15/16 08:30 99 Nasal Cannula 2.00 03/15/16 08:00 98.5 94 34 119/63 Intake and Output 03/14/16 03/14/16 03/15/16 08:00 16:00 00:00 Intake Total 446 ml 588 ml 530 ml Output Total 4340 ml 4250 ml 260 ml Balance -3894 ml -3662 ml 270 ml Result Diagram: 03/15/16 0353 03/15/16 0353 Other Results Microbiology Date/Time Procedure Status Source Growth 03/13/16 11:25 Aerobic Blood Culture - Preliminary Resulted Blood Other NO GROWTH IN 1 DAY 03/13/16 11:25 Anaerobic Blood Culture - Final Resulted Blood Other QNS - SEE AEROBE REPORT Imaging Last Impressions Chest X-Ray 03/14/16 1159 Signed Impressions: Service Date/Time: Monday, March 14, 2016 12:22 - CONCLUSION: 1. Right-sided central line in place. 2. No pneumothorax. Wilver Bond MD Head CT 03/14/16 0000 Signed Impressions: Service Date/Time: Monday, March 14, 2016 16:13 - CONCLUSION: Normal examination. Jere Toro MD Renal Ultrasound 03/13/16 0000 Signed Impressions: Service Date/Time: Sunday, March 13, 2016 16:39 - CONCLUSION: Unremarkable renal ultrasound. Abisai Lundy MD Abdomen/Pelvis CT 03/12/16 0000 Signed Impressions: Service Date/Time: Saturday, March 12, 2016 16:59 - CONCLUSION: Worsening acute pancreatitis. Abisai Lundy MD ADDENDUM: Not mentioned above are bubbles of gas involving the cecum and ascending colon difficult to exclude pneumatosis, however they appear to be towards the dependent portion of the bowel wall and therefore possibility of pneumatosis intestinalis should be entertained. Abisai Lundy MD Abdomen X-Ray 03/09/16 0000 Signed Impressions: Service Date/Time: February 11:11 - CONCLUSION: 1. The tip of the weighted feeding tube is located in the descending portion of the duodenum. Scar Resendez MD GI Procedure 03/05/16 0000 Signed Impressions: Service Date/Time: Friday, March 04, 2016 23:02 - CONCLUSION: ERCP as above. Vidal Ye MD Gall Bladder Ultrasound 03/04/16 0000 Signed Impressions: Service Date/Time: Friday, March 04, 2016 19:36 - CONCLUSION: 1. Thick-walled gallbladder with some pericholecystic fluid and multiple gallstones in the region of the neck. The findings are suggestive of acute cholecystitis. Clinical correlation is recommended. 2. Fatty liver. 3. Minimal ascites within Polanco's pouch. 4. Poor visualization of the pancreas due to shadowing bowel gas. Odilon Butler MD Cholangiopancreatography MRI 03/04/16 0000 Signed Impressions: Service Date/Time: Friday, March 04, 2016 18:24 - CONCLUSION: 1. Extensive edema throughout the retroperitoneum and pancreas. No abscess or pseudocyst. 2. Tiny layering gallstones within the gallbladder. No discrete common bile duct stone. There is tapering of the common bile duct within the pancreatic head felt to be secondary to the edema within the pancreas. No discrete mass or choledocholithiasis. No intrahepatic or extrahepatic ductal dilatation. Maxwell Hsu Jr., MD Objective Remarks GENERAL: 66-year-old AA female, morbidly obese, critically ill appearing, currently resting in bed in mild respiratory distress SKIN: Warm and dry. No rash HEAD: Atraumatic. Normocephalic. EYES: Pupils equal and round around 3 mm bilaterally and reactive. No scleral icterus. No injection or drainage. ENT: No nasal bleeding or discharge. Mucous membranes pink and moist. Potter fed tube in right nares NECK: Trachea midline. No JVD. Left hemodialysis catheter clean dry and intact. Right IJ CVL clean dry and intact CARDIOVASCULAR: Regular rate and rhythm. S1, S2. No S4. Without murmur RESPIRATORY: Somewhat tachypnea however very few crackles appreciated. Distant breath sounds. Symmetrical excursion. Shallow respirations. GASTROINTESTINAL: Abdomen obese. Tender to palpation in all quadrants with no rebound. Voluntary guarding. No rigidity. Hypoactive bowel sounds MUSCULOSKELETAL: Extremities with 1+ lower extremity pedal edema/anasarca-like improved from yesterday. No obvious deformities. NEUROLOGICAL: Awake and alert to person only. No obvious cranial nerve deficits. Motor grossly within normal limits. Five out of 5 muscle strength in the arms and legs. Able to answer 1 or 2 words to questions PSYCHIATRIC: Depressed mood and affect. Urinary Catheter: Yes Assessment to: Continue Azul insert reason: Prolonged Immobilization Vascular Central Line Catheter: Yes Assessment to: Continue Date of Insertion: Mar 14, 2016 Line: Central Venous Catheter Side: Right Location: Internal, Jugular A/P Problem List: (1) Severe sepsis with acute organ dysfunction ICD Code: A41.9 Status: Acute (2) Cholangitis ICD Code: K83.0 Status: Acute (3) Hypertensive urgency ICD Code: I16.0 Status: Acute Assessment and Plan Neuro/Psych: Pain management for acute necrotizing pancreatitis Acetaminophen for fever [place] 5/325 one every 4 hours/ morphine 2 mg every 3 hours hours when necessary for pain management CV: Severe sepsis from cholangitis/necrotizing pancreatitis Hypertension by history Dyslipidemia Lactic acidosis - resolved - appears fluid overloaded, +18 kg since admission. -11.5 L past 3 dialysis sessions - repeat Lactate 03/07 6 AM normal - Holding home medications lisinopril/HCTZ in light of acute kidney injury. - Noted elevated HDL/LDL/total cholesterol - triglycerides within normal limits Consider statin when appropriate once LFTs normalize - As needed labetalol, hydralazine, Nitropaste for blood pressure control of present - Previously on metoprolol 50 mg twice a day with some SVT during this hospitalization. We'll switch to IV Lopressor 2.5 every 6 hours while nothing by mouth - 2-D echo EF 55 - 60%. Trace MR. ANNIE 39 mmHg Resp: Acute respiratory insufficiency likely secondary to volume overload - Nasal cannula to maintain saturations greater than equal to 92% - Incentive spirometry while awake - Chest x-ray 03/13 after line placement reveals possible right lower lobe effusion/atelectasis GI: Status post ERCP/placement of stenting, bile duct secondary to stenosis Acute necrotizing Pancreatitis Possible pneumatosis intestinalis Transaminitis Hypo-albuminemia CT abdomen/pelvis 03/12 revealed multiple gallstones/worsening pancreatitis and possible pneumatosis intestinalis involving the cecum and the ascending colon Dr. Ceballos/general surgery following Discussed with Dr. Moulton yesterday. Agreed with hemodialysis and attempt to remove extra cellular fluid while maintaining intravascular volume. Difficult situation - intra-abdominal bladder pressures - Dr. Lucero/GI performed ERCP 03/04 with stent placement, distal common bile duct 8.5 Yi 7 cm secondary to stricture - Ultrasound revealed thickening in the gallbladder with pericholecystic fluid. Tiny gallstones noted. - MRCP revealed retroperitoneal edema, with edema causing potentially narrowing of the distal common bile duct Plan on repeating CT abdomen and pelvis today with oral contrast - Protonix for GI prophylaxis - Colace/ Senokot/MiraLAX for bowel regimen - Autoimmune pancreatitis - IgG4 pending : Azul if needed for accurate I's and O's in critically ill patient Endo: Hyperglycemia of critical illness Sliding-scale insulin. Accu-Cheks every 6 hours to maintain euglycemia. Low regimen. Levemir 10 units twice a day held in light of nothing by mouth status. Resuming TPN initiated 14 units sliding scale insulin past 24 hours. Renal: LOI - fluid overload. +16 kg since admission - Creatinine appears to be stabilizing - Avoid nephrotoxic drugs. Noted lisinopril/adequate as it held -Bumex drip discontinued yesterday - Started albumin 25 g every 6 hours 4 dosages yesterday. Since discontinued - Nephrology consultation. Need of hemodialysis with the next 24-48 hours -11.5 L past 3 days -Negative urine eosinophils renal ultrasound - Follow BMP in a.m. Heme/Onc: History of breast cancer status post right mastectomy Leukocytosis Normocytic anemia CBC/coags ordered this a.m. Currently holding Letrozole 2.5 mg daily with elevated LFTs. Resume when clinically indicated ID: Possible necrotizing pancreatitis/pneumatosis intestinalis Day #3 micafungin/Merrem ID consult appreciated Pertinent cultures 03/04 - urine culture - negative 03/04 - blood cultures 2 - negative 03/07 - blood cultures 2 - negative 03/13 - blood cultures 2 -no growth FEN: Replace electrolytes as clinically indicated Currently nothing by mouth for general surgery TPN renal mix initiating at 8 PM tonight On normal saline at 60 cc an hour MSK: Out of bed/PT evaluate and treat Access -Right IJ CVL day 2 placed 03/14 - Left IJ hemodialysis catheter placed 03/13 Prophylaxis - GI - Protonix - DVT - SCD/heparin Critical Care: The total critical care time was 35 minutes. Time to perform other separately billable procedures was not included in the critical care time. Discuss with daughter in hallway. Care plan discussed. All questions answered. Rosalio Bowie MD Mar 15, 2016 09:29
[2016-03-15 10:54] LABS: BACTERIA, URINE MOD /hpf; BLOOD, URINE SMALL (NEG); GLUCOSE,URINE NEG (NEG); HYALINE CAST, URINE 21 /lpf (RARE); KETONE, URINE NEG (NEG); MUCUS URINE FEW /lpf (OCC); NITRITE,URINE NEG (NEG); SQUAMOUS EPITHELIAL CELL URINE 1 /hpf (0-5); URINE COLOR YELLOW (YELLW/STRAW)
[2016-03-15 10:55] LABS: COMMENT (UR) CATH-CULTURE IND; CULTURE IF INDICATED CATH CULTURE IND
[2016-03-15] MEDS: MICAFUNGIN INJ 150 MG in SODIUM CHLORIDE 0.9% INJ 100 ML IV SCH (10:55)
[2016-03-15] MEDS ORDERED: ATROPINE SULFATE 1 MG/10 ML SYRINGE ONE (15:17)
[2016-03-15] MEDS ORDERED: EPINEPHrine HCL (1:10,000) 1 MG/10 ML SYRINGE ONE (15:17)
--- NOTE | 2016-03-15 15:17 | HHI.NPPN ---
Subjective Renal Failure: Acute History of Present Illness 66 year old with Gall stone Pancreatitis Objective Data Data 03/14/16 03/15/16 19:00 07:00 Intake Total 588 ml 977 ml Output Total 4250 ml 760 ml Balance -3662 ml 217 ml Intake Oral 0 ml IV Total 468 ml 887 ml Tube Feeding 0 ml Tube Irrigant 120 ml 90 ml Output Urine Total 250 ml 760 ml Hemodialysis 4000 ml # Bowel Movements 0 Vital Signs Date Time Temp Pulse Resp B/P Pulse Ox O2 Delivery O2 Flow Rate FiO2 03/15/16 14:00 88 03/15/16 12:00 106 03/15/16 12:00 100.8 103 35 153/70 95 03/15/16 10:00 107 03/15/16 08:30 99 Nasal Cannula 2.00 03/15/16 08:00 98.5 94 34 119/63 99 03/15/16 08:00 100 03/15/16 07:00 96 Nasal Cannula 3.00 03/15/16 06:00 99 03/15/16 04:00 101 03/15/16 04:00 100.5 101 33 167/75 94 03/15/16 02:00 107 03/15/16 00:00 100.3 107 32 157/72 97 03/15/16 00:00 107 03/14/16 22:00 102 03/14/16 20:00 99.3 106 33 159/71 96 03/14/16 20:00 106 03/14/16 19:28 95 Nasal Cannula 2.00 03/14/16 19:00 90 Nasal Cannula 3.00 03/14/16 18:00 109 03/14/16 16:00 114 03/14/16 16:00 99.9 114 32 143/64 93 -: 03/15/16 0353 03/15/16 0353 Microbiology 03/15/16 Urine Culture, Received Pending Physical Exam General Appearance: Well Developed Neck Neck Exam: Neck Supple Pulmonary Resp Exam: Decreased Bases Cardiology CV Exam: Tachycardia Gastrointestinal/Abdomen GI Exam: Soft, Distended Extremeties Extremities Exam: Moderate Edema, Pitting Edema Neurologic Neuro Exam: Alert, Awake Assessment/Plan Problem List: (1) Acute renal failure Plan: patient received hemodialysis UF 3.5 L today , she has edema next HD tomorrow then may be on T,T,S shift schedule another treatment for tomorrow continue supportive care for now replace K (2) Anasarca Plan: improving with hemodialysis (3) Pancreatitis, acute Plan: She will be observed (4) Severe sepsis with acute organ dysfunction Plan: ID is following on meropenem, Metronidazole and micafungin (5) Cholangitis Plan: As above Problem Qualifiers (1) Acute renal failure: Qualified Code: N17.0 - Acute renal failure with tubular necrosis (2) Pancreatitis, acute: Estela Lares MD Mar 15, 2016 15:17
[2016-03-15] MEDS ORDERED: LIDOCAINE HCL 2% 100 MG/5 ML SYRINGE ONE (15:18)
[2016-03-15] MEDS ORDERED: POTASSIUM CHLORIDE INJ 30 MEQ in SODIUM CHLORIDE 0.9% INJ 100 ML IV-CENTRAL ONE (16:00)
[2016-03-15] MEDS: hydrALAZINE HCL 20 MG/ML VIAL IV PUSH PRN ×2 (16:21→18:55)
[2016-03-15] MEDS: ACETAMINOPHEN/HYDROcodone 325 MG/5 MG TAB PO PRN ×2 (17:27→21:39)
--- NOTE | 2016-03-15 18:13 | HHI.IDPN ---
Subjective Subjective Remarks Delayed entry. is a 66-year-old woman who was admitted to the hospital with nausea and vomiting with severe abdominal pain and no po intake on admission.She also reports diarrhea prior to arrival. Patient reported chills on admission. No prior h/o gallstones or pancreatic issues. Being treated acute pancreatitis and acute cholangitis. Overnight events reviewed No fevers UO low. Undergoing HD. No rash No diarrhea Antibiotics Meropenem IV Micafungin IV Lines Line sites with no e/o infection Past Medical History reviewed. Allergies: Coded Allergies: No Known Allergies (Verified , 02/18/15) Objective . Vital Signs Date Time Temp Pulse Resp B/P Pulse Ox O2 Delivery O2 Flow Rate FiO2 03/15/16 18:00 95 03/15/16 16:00 118 03/15/16 16:00 99.0 104 29 164/73 99 03/15/16 14:00 88 03/15/16 12:00 106 03/15/16 12:00 100.8 103 35 153/70 95 03/15/16 10:00 107 03/15/16 08:30 99 Nasal Cannula 2.00 03/15/16 08:00 98.5 94 34 119/63 99 03/15/16 08:00 100 03/15/16 07:00 96 Nasal Cannula 3.00 03/15/16 06:00 99 03/15/16 04:00 101 03/15/16 04:00 100.5 101 33 167/75 94 03/15/16 02:00 107 03/15/16 00:00 100.3 107 32 157/72 97 03/15/16 00:00 107 03/14/16 22:00 102 03/14/16 20:00 99.3 106 33 159/71 96 03/14/16 20:00 106 03/14/16 19:28 95 Nasal Cannula 2.00 03/14/16 19:00 90 Nasal Cannula 3.00 03/14/16 03/14/16 03/15/16 15:00 23:00 07:00 Intake Total 588 ml 530 ml 447 ml Output Total 4250 ml 260 ml 500 ml Balance -3662 ml 270 ml -53 ml Intake Oral 0 ml IV Total 468 ml 470 ml 417 ml Tube Feeding 0 ml Tube Irrigant 120 ml 60 ml 30 ml Output Urine Total 250 ml 260 ml 500 ml Hemodialysis 4000 ml # Bowel Movements 0 . Laboratory Tests Test 03/14/16 03/15/16 03:31 03:53 White Blood Count 31.8 TH/MM3 23.6 TH/MM3 Red Blood Count 3.30 MIL/MM3 2.96 MIL/MM3 Hemoglobin 9.1 GM/DL 8.4 GM/DL Hematocrit 28.8 % 25.6 % Mean Corpuscular Volume 87.4 FL 86.5 FL Mean Corpuscular Hemoglobin 27.5 PG 28.3 PG Mean Corpuscular Hemoglobin 31.5 % 32.8 % Concent Red Cell Distribution Width 15.6 % 15.5 % Platelet Count 367 TH/MM3 390 TH/MM3 Mean Platelet Volume 9.7 FL 9.0 FL Neutrophils (%) (Auto) 91.0 % 86.4 % Lymphocytes (%) (Auto) 2.7 % 3.3 % Monocytes (%) (Auto) 5.6 % 9.2 % Eosinophils (%) (Auto) 0.3 % 0.9 % Basophils (%) (Auto) 0.4 % 0.2 % Neutrophils # (Auto) 28.9 TH/MM3 20.4 TH/MM3 Lymphocytes # (Auto) 0.9 TH/MM3 0.8 TH/MM3 Monocytes # (Auto) 1.8 TH/MM3 2.2 TH/MM3 Eosinophils # (Auto) 0.1 TH/MM3 0.2 TH/MM3 Basophils # (Auto) 0.1 TH/MM3 0.0 TH/MM3 CBC Comment AUTO DIFF AUTO DIFF Differential Total Cells 100 100 Counted Neutrophils % (Manual) 70 % 74 % Band Neutrophils % 24 % 18 % Lymphocytes % 2 % 1 % Monocytes % 1 % 1 % Eosinophils % 1 % 2 % Neutrophils # (Manual) 30.5 TH/MM3 22.4 TH/MM3 Myelocytes 2 % 1 % Nucleated Red Blood Cells 1 /100 WBC Differential Comment FINAL DIFF FINAL DIFF MANUAL MANUAL Toxic Granulation 1+ 2+ Platelet Estimate NORMAL NORMAL Platelet Morphology Comment NORMAL NORMAL Metamyelocytes 2 % Plasma Cells 1 % Laboratory Tests Test 03/13/16 03/14/16 03/14/16 03/15/16 19:35 03:31 17:17 03:53 Sodium Level 140 MEQ/L 141 MEQ/L 144 MEQ/L Potassium Level 4.5 MEQ/L 4.2 MEQ/L 3.4 MEQ/L Chloride Level 106 MEQ/L 105 MEQ/L 106 MEQ/L Carbon Dioxide Level 24.9 MEQ/L 26.5 MEQ/L 24.7 MEQ/L Anion Gap 9 MEQ/L 10 MEQ/L 13 MEQ/L Blood Urea Nitrogen 66 MG/DL 58 MG/DL 56 MG/DL Creatinine 2.35 MG/DL 2.13 MG/DL 2.04 MG/DL Estimat Glomerular Filtration 25 ML/MIN 28 ML/MIN 30 ML/MIN Rate Random Glucose 181 MG/DL 166 MG/DL 259 MG/DL Lactic Acid Level 1.3 mmol/L 1.1 mmol/L Calcium Level 10.1 MG/DL 9.8 MG/DL 9.9 MG/DL Phosphorus Level 4.3 MG/DL 3.9 MG/DL 3.9 MG/DL Magnesium Level 2.3 MG/DL 2.2 MG/DL 2.1 MG/DL Total Bilirubin 0.7 MG/DL 0.9 MG/DL 0.8 MG/DL Aspartate Amino Transf 37 U/L 36 U/L 28 U/L (AST/SGOT) Alanine Aminotransferase 28 U/L 27 U/L 24 U/L (ALT/SGPT) Alkaline Phosphatase 111 U/L 107 U/L 98 U/L Total Protein 7.4 GM/DL 7.5 GM/DL 7.2 GM/DL Albumin 2.4 GM/DL 3.0 GM/DL 2.8 GM/DL Ammonia 21 MCMOL/L Microbiology Date/Time Procedure Status Source Growth 03/13/16 11:03 Aerobic Blood Culture - Preliminary Resulted Blood Other NO GROWTH IN 2 DAYS 03/13/16 11:03 Anaerobic Blood Culture - Preliminary Resulted Blood Other NO GROWTH IN 2 DAYS 03/13/16 11:25 Aerobic Blood Culture - Preliminary Resulted Blood Other NO GROWTH IN 2 DAYS 03/13/16 11:25 Anaerobic Blood Culture - Final Resulted Blood Other QNS - SEE AEROBE REPORT 03/15/16 09:30 Urine Culture Received Urine Clean Catch Pending Imaging Last Impressions Chest X-Ray 03/09/16 0000 Signed Impressions: Service Date/Time: February 13:11 - CONCLUSION: Left lower lobe atelectasis versus infiltrate is unchanged. Maxwell Hsu Jr., MD Abdomen X-Ray 03/09/16 0000 Signed Impressions: Service Date/Time: February 11:11 - CONCLUSION: 1. The tip of the weighted feeding tube is located in the descending portion of the duodenum. Scar Resendez MD Abdomen/Pelvis CT 03/08/16 0000 Signed Impressions: Service Date/Time: Tuesday, March 08, 2016 15:28 - CONCLUSION: Severe changes of pancreatitis, potentially with areas of hemorrhagic conversion. Darrian Engel MD GI Procedure 03/05/16 0000 Signed Impressions: Service Date/Time: Friday, March 04, 2016 23:02 - CONCLUSION: ERCP as above. Vidal Ye MD Gall Bladder Ultrasound 03/04/16 0000 Signed Impressions: Service Date/Time: Friday, March 04, 2016 19:36 - CONCLUSION: 1. Thick-walled gallbladder with some pericholecystic fluid and multiple gallstones in the region of the neck. The findings are suggestive of acute cholecystitis. Clinical correlation is recommended. 2. Fatty liver. 3. Minimal ascites within Polanco's pouch. 4. Poor visualization of the pancreas due to shadowing bowel gas. Odilon Butler MD Cholangiopancreatography MRI 03/04/16 0000 Signed Impressions: Service Date/Time: Friday, March 04, 2016 18:24 - CONCLUSION: 1. Extensive edema throughout the retroperitoneum and pancreas. No abscess or pseudocyst. 2. Tiny layering gallstones within the gallbladder. No discrete common bile duct stone. There is tapering of the common bile duct within the pancreatic head felt to be secondary to the edema within the pancreas. No discrete mass or choledocholithiasis. No intrahepatic or extrahepatic ductal dilatation. Maxwell Hsu Jr., MD Physical Exam GENERAL: Obese AAF patient, in no apparent distress. SKIN: No rashes, ecchymoses or lesions. Cool and dry. HEAD: Atraumatic. Normocephalic. No temporal or scalp tenderness. EYES: Pupils equal round and reactive. Extraocular motions intact. No scleral icterus. No injection or drainage. ENT: Nose without bleeding, purulent drainage or septal hematoma. Throat without erythema, tonsillar hypertrophy or exudate. Uvula midline. Airway patent. NECK: Trachea midline. Supple, nontender, no meningeal signs. CARDIOVASCULAR: HS audible. No murmur. RESPIRATORY: Clear to auscultation. Breath sounds equal bilaterally but decreased in the bases. GASTROINTESTINAL: Abdomen soft, tenderness in RUQ and epigastric region, distended, abd wall edema noted. MUSCULOSKELETAL: Generalized anasarca noted. NEUROLOGICAL: Awake and alert. Grossly non focal Psych: cooperative IV line sites with no e/o infection. Assessment & Plan Remarks SIRS possible Sepsis Acute Severe Pancreatitis with hemorrhage. Acute Pneumatosis Intestinalis (vs anasarca related bowel edema, cdiff) Acute cholangitis Recs: Continue Meropenem IV Continue Micafungin IV DC Flagyl IV as Cdiff negative. D/w Follow cultures Follow clinically. Margo RN and patient. Cely Ayers MD Mar 15, 2016 18:13
[2016-03-15] MEDS ORDERED: INSULIN DETEMIR 100 UNITS/ML VIAL SQ SCH (21:00)
[2016-03-15] MEDS: CLINIMIX 4.25/25 (Cust.Renal Central) 2000 mL- >42 mls/hr IV-CENTRAL SCH ×8 (21:42)
[2016-03-16] VITALS (15 sets, daily range): BP systolic 130–180; BP diastolic 60–85; PULSE 87–117; RESP 22–37; TEMP 97.3–99.9; O2SAT 95–97
[2016-03-16] MEDS: INSULIN NovoLIN REGULAR SUPPLEMENTAL SCALE SQ SCH (00:46)
[2016-03-16] MEDS: MEROPENEM INJ 1,000 MG in SODIUM CHLORIDE 0.9% INJ 100 ML IV SCH ×2 (01:29→13:02)
[2016-03-16] MEDS: hydrALAZINE HCL 20 MG/ML VIAL IV PUSH PRN ×3 (03:02→12:22)
[2016-03-16] MEDS: CHLORHEXIDINE GLUCONATE 2 % 1 PACK (2 CLOTHS) TOP SCH (04:00)
[2016-03-16 04:43] LABS: AUTOMATED NEUTROPHIL # 15.7 TH/MM3 (1.8-7.7); BASOPHIL # 0.1 TH/MM3 (0-0.2); BASOPHIL % 0.4 % (0.0-2.0); EOSINOPHIL # 0.1 TH/MM3 (0-0.4); EOSINOPHIL % 0.7 % (0.0-4.0); HEMATOCRIT 27.8 % (35.0-46.0); LYMPH % 2.6 % (9.0-44.0); LYMPHOCYTE # 0.5 TH/MM3 (1.0-4.8); MEAN CELL VOLUME 89.6 FL (80.0-100.0); MEAN CORPUSCULAR HEMOGLOBIN 28.2 PG (27.0-34.0); MEAN CORPUSCULAR HGB CONC 31.5 % (32.0-36.0); MONO % 8.7 % (0.0-8.0); NEUT % 87.6 % (16.0-70.0); PLATELET COUNT 424 TH/MM3 (150-450); RED CELL DISTRIBUTION WIDTH 15.5 % (11.6-17.2); WHITE BLOOD COUNT 17.9 TH/MM3 (4.0-11.0)
[2016-03-16 04:47] LABS: HEMO FLAGS AUTO DIFF; INTERNATIONAL NORMALIZED RATIO 1.1 RATIO; PROTHROMBIN TIME - PATIENT 12.7 SEC (9.8-11.6)
[2016-03-16] MEDS ORDERED: INSULIN REGULAR 100 UNITS/100 ML NS ALGORITHM 1 IV SCH ×2 (05:00)
[2016-03-16] MEDS ORDERED: DEXTROSE 50% IN WATER 50 ML VIAL(D50) IV PUSH PRN ×3 (05:00→16:00)
[2016-03-16] MEDS ORDERED: MISC INFORMATION XX ONE ×2 (05:00→07:45)
[2016-03-16 05:01] LABS: ALT (GPT) 23 U/L (10-53); ANION GAP 12 MEQ/L (5-15); AST (GOT) 30 U/L (15-37); BICARBONATE 24.7 MEQ/L (21.0-32.0); BLOOD UREA NITROGEN 63 MG/DL (7-18); CHLORIDE 103 MEQ/L (98-107); GLOMERULAR FILTRATION RATE 26 ML/MIN (>89); MAGNESIUM 2.2 MG/DL (1.5-2.5); POTASSIUM 3.6 MEQ/L (3.5-5.1); SODIUM (NA) 140 MEQ/L (136-145)
[2016-03-16 05:04] LABS: ALKALINE PHOSPHATASE 99 U/L (45-117); TOTAL BILIRUBIN ADULT 0.8 MG/DL (0.2-1.0)
[2016-03-16] MEDS: METOPROLOL TARTRATE 5 MG/5 ML VIAL IV PUSH SCH ×3 (06:02→17:14)
[2016-03-16 07:32] LABS: BANDS 3 % (0-6); BASOPHILS 3 % (0-2); METAMYELOCYTES 3 % (0-1); MYELOCYTES 5 % (0-0); NEUTROPHIL # MANUAL DIFF 15.9 TH/MM3 (1.8-7.7); POLYS (SEG NEUTROPHILS) 78 % (16-70); SCAN/DIFF FINAL DIFF MANUAL; WBC DIFF SAMPLE 100
[2016-03-16 07:33] LABS: PLATELET ESTIMATE SMEAR HIGH (NORMAL)
[2016-03-16 07:34] LABS: KERATOCYTES OCC (NORMAL)
[2016-03-16 07:35] LABS: PLATELET MORPHOLOGY NORMAL (NORMAL)
[2016-03-16 07:54] LABS: AMYLASE 42 U/L (25-115)
[2016-03-16] MEDS ORDERED: INSULIN REGULAR (IV INFUSION) 100 UNITS in SODIUM CHLORIDE 0.9% INJ 99 ML IV SCH (08:00)
--- NOTE | 2016-03-16 08:08 | HHI.CCPN ---
Subjective Remarks/Hospital Course > 48 hour history of epigastric pain, vomiting. GB US reveals cholecystitis with stones in neck. MRCP - pancreatitis, ducts not dilated. Received stent into a bile duct secondary to stricture due to pancreatic head edema. [place] re -consulted today 03/12 due to patient's tachypnea and abdominal distention. 03/13 - Patient appears significantly more acutely ill since I last saw her . Answers questions in 1-2 word responses. Resting in bed with quite distant added. Diffuse in all 4 quadrants abdominal stated to be Pain 10 out of 10. Tube feeds on hold. Decreased urine output noted. 03/14: Tmax 100. Currently 98.9. Status post -4 L hemodialysis yesterday. Breathing appears intermittently tachypneic and labored however she is more alert today and able to verbally complete sentences today. No bowel movement yesterday. Tube feeds currently off. 03/15: Tmax 102. Currently 100.5. Status post -3.5 L hemodialysis today. More lethargic. TPN to be initiated today. Subjective 03/16: Afebrile overnight. Started on TPN with elevated blood sugars. Currently on insulin drip. 2 large bowel movements yesterday. She is making adequate urine output. Pain better controlled today. White cell count has decreased slowly. Clinically appears better. Objective Vital Signs Date Time Temp Pulse Resp B/P Pulse Ox O2 Delivery O2 Flow Rate FiO2 03/16/16 06:00 112 03/16/16 04:00 97.9 37 178/74 95 03/15/16 20:36 Nasal Cannula 2.00 Intake and Output 03/15/16 03/15/16 03/16/16 08:00 16:00 00:00 Intake Total 447 ml 553 ml 429 ml Output Total 500 ml 3750 ml 275 ml Balance -53 ml -3197 ml 154 ml Result Diagram: 03/16/16 0415 03/16/16 0415 Other Results Microbiology Date/Time Procedure Status Source Growth 03/15/16 09:30 Urine Culture Received Urine Clean Catch Pending 03/13/16 11:25 Aerobic Blood Culture - Preliminary Resulted Blood Other NO GROWTH IN 2 DAYS 03/13/16 11:25 Anaerobic Blood Culture - Final Resulted Blood Other QNS - SEE AEROBE REPORT Imaging Last Impressions Chest X-Ray 03/14/16 1159 Signed Impressions: Service Date/Time: Monday, March 14, 2016 12:22 - CONCLUSION: 1. Right-sided central line in place. 2. No pneumothorax. Wilver Bond MD Head CT 03/14/16 0000 Signed Impressions: Service Date/Time: Monday, March 14, 2016 16:13 - CONCLUSION: Normal examination. Jere Toro MD Renal Ultrasound 03/13/16 0000 Signed Impressions: Service Date/Time: Sunday, March 13, 2016 16:39 - CONCLUSION: Unremarkable renal ultrasound. Abisai Lundy MD Abdomen/Pelvis CT 03/12/16 0000 Signed Impressions: Service Date/Time: Saturday, March 12, 2016 16:59 - CONCLUSION: Worsening acute pancreatitis. Abisai Lundy MD ADDENDUM: Not mentioned above are bubbles of gas involving the cecum and ascending colon difficult to exclude pneumatosis, however they appear to be towards the dependent portion of the bowel wall and therefore possibility of pneumatosis intestinalis should be entertained. Abisai Lundy MD Abdomen X-Ray 03/09/16 0000 Signed Impressions: Service Date/Time: February 11:11 - CONCLUSION: 1. The tip of the weighted feeding tube is located in the descending portion of the duodenum. Scar Resendez MD GI Procedure 03/05/16 0000 Signed Impressions: Service Date/Time: Friday, March 04, 2016 23:02 - CONCLUSION: ERCP as above. Vidal Ye MD Gall Bladder Ultrasound 03/04/16 0000 Signed Impressions: Service Date/Time: Friday, March 04, 2016 19:36 - CONCLUSION: 1. Thick-walled gallbladder with some pericholecystic fluid and multiple gallstones in the region of the neck. The findings are suggestive of acute cholecystitis. Clinical correlation is recommended. 2. Fatty liver. 3. Minimal ascites within Polanco's pouch. 4. Poor visualization of the pancreas due to shadowing bowel gas. Odilon Butler MD Cholangiopancreatography MRI 03/04/16 0000 Signed Impressions: Service Date/Time: Friday, March 04, 2016 18:24 - CONCLUSION: 1. Extensive edema throughout the retroperitoneum and pancreas. No abscess or pseudocyst. 2. Tiny layering gallstones within the gallbladder. No discrete common bile duct stone. There is tapering of the common bile duct within the pancreatic head felt to be secondary to the edema within the pancreas. No discrete mass or choledocholithiasis. No intrahepatic or extrahepatic ductal dilatation. Maxwell Hsu Jr., MD Objective Remarks GENERAL: 66-year-old AA female, morbidly obese, critically ill appearing, currently resting in bed in mild respiratory distress SKIN: Warm and dry. No rash HEAD: Atraumatic. Normocephalic. EYES: Pupils equal and round around 3 mm bilaterally and reactive. No scleral icterus. No injection or drainage. ENT: No nasal bleeding or discharge. Mucous membranes pink and moist. [place] fed tube in right nares NECK: Trachea midline. No JVD. Left hemodialysis catheter clean dry and intact. Right IJ CVL clean dry and intact CARDIOVASCULAR: Regular rate and rhythm. S1, S2. No S4. Without murmur RESPIRATORY: Somewhat tachypnea however very few crackles appreciated. Distant breath sounds. Symmetrical excursion. Shallow respirations. GASTROINTESTINAL: Abdomen obese. Tender to palpation in all quadrants with no rebound. Voluntary guarding. No rigidity. Hypoactive bowel sounds MUSCULOSKELETAL: Extremities with 1+ lower extremity pedal edema/anasarca-like improved from yesterday. No obvious deformities. NEUROLOGICAL: Awake and alert to person only. No obvious cranial nerve deficits. Motor grossly within normal limits. Five out of 5 muscle strength in the arms and legs. Able to answer 1 or 2 words to questions PSYCHIATRIC: Depressed mood and affect. Urinary Catheter: Yes Assessment to: Continue Azul insert reason: Prolonged Immobilization Vascular Central Line Catheter: Yes Assessment to: Continue Date of Insertion: Mar 14, 2016 Line: Central Venous Catheter Side: Right Location: Internal, Jugular A/P Problem List: (1) Severe sepsis with acute organ dysfunction ICD Code: A41.9 Status: Acute (2) Cholangitis ICD Code: K83.0 Status: Acute (3) Hypertensive urgency ICD Code: I16.0 Status: Acute Assessment and Plan Neuro/Psych: Pain management for acute necrotizing pancreatitis Acetaminophen for fever [place] 5/325 one every 4 hours/ morphine 2 mg every 3 hours hours when necessary for pain management CV: Severe sepsis from cholangitis/necrotizing pancreatitis Hypertension by history Dyslipidemia Lactic acidosis - resolved - appears fluid overloaded, +18 kg since admission. -11.5 L past 3 dialysis sessions. Plan for 1 additional session today then possibly Sunday/ and Sunday - repeat Lactate 03/07 6 AM normal - Holding home medications lisinopril/HCTZ in light of acute kidney injury. - Noted elevated HDL/LDL/total cholesterol - triglycerides within normal limits Consider statin when appropriate once LFTs normalize - As needed labetalol, hydralazine, Nitropaste for blood pressure control of present - Previously on metoprolol 50 mg twice a day with some SVT during this hospitalization. We'll switch to IV Lopressor 5 milligrams every 6 hours with scheduled Nitropaste 2 inches every 6 hours while nothing by mouth - 2-D echo EF 55 - 60%. Trace MR. ANNIE 39 mmHg Resp: Acute respiratory insufficiency likely secondary to volume overload - Nasal cannula to maintain saturations greater than equal to 92% - Incentive spirometry while awake - Chest x-ray 03/13 after line placement reveals possible right lower lobe effusion/atelectasis GI: Status post ERCP/placement of stenting, bile duct secondary to stenosis Acute necrotizing Pancreatitis Possible pneumatosis intestinalis Transaminitis Hypo-albuminemia CT abdomen/pelvis 03/12 revealed multiple gallstones/worsening pancreatitis and possible pneumatosis intestinalis involving the cecum and the ascending colon Dr. Ceballos/general surgery following Discussed with Dr. Moulton yesterday. Agreed with hemodialysis and attempt to remove extra cellular fluid while maintaining intravascular volume. Difficult situation 14-24 intra-abdominal bladder pressures - Dr. Lucero/GI performed ERCP 03/04 with stent placement, distal common bile duct 8.5 [place] 7 cm secondary to stricture - Ultrasound revealed thickening in the gallbladder with pericholecystic fluid. Tiny gallstones noted. - MRCP revealed retroperitoneal edema, with edema causing potentially narrowing of the distal common bile duct Plan on repeating CT abdomen and pelvis 03/15 with oral contrast Test complete. Awaiting results. Appears to be less pneumatosis intestinalis in the ascending colon/noted and likely colonic ileus - Protonix for GI prophylaxis - Colace/ Senokot/MiraLAX for bowel regimen - Autoimmune pancreatitis - IgG4 pending Discuss with surgery yesterday. Requesting transfer to [facility] for further evaluation by pancreatic specialist. delivery sales worker sent appropriate paperwork to review. I called transfer center. [facility] : Azul if needed for accurate I's and O's in critically ill patient Endo: Hyperglycemia of critical illness Algorithm 3 Levemir 30 units twice a day Resuming TPN initiated Renal: LOI - fluid overload. +16 kg since admission - Creatinine appears to be stabilizing - Avoid nephrotoxic drugs. Noted lisinopril/hctz held - Nephrology consultation. -11.5 L past 3 days -Negative urine eosinophils renal ultrasound - Follow BMP in a.m. Heme/Onc: History of breast cancer status post right mastectomy Leukocytosis Normocytic anemia CBC/coags ordered this a.m. Currently holding Letrozole 2.5 mg daily with elevated LFTs. Resume when clinically indicated ID: Possible necrotizing pancreatitis/pneumatosis intestinalis Day #4 micafungin/Merrem ID consult appreciated Pertinent cultures 03/04 - urine culture - negative 03/04 - blood cultures 2 - negative 03/07 - blood cultures 2 - negative 03/13 - blood cultures 2 -no growth 03/15 - urine culture - pending FEN: Hypokalemia Replace electrolytes as clinically indicated Currently nothing by mouth for general surgery TPN renal mix initiating at 8 PM tonight 20 mEq once KCl IV 1. Recheck in a.m. MSK: Out of bed/PT evaluate and treat Access -Right IJ CVL day 3 placed 03/14 - Left IJ hemodialysis catheter placed 03/13 Prophylaxis - GI - Protonix - DVT - SCD/heparin Critical Care: The total critical care time was 35 minutes. Time to perform other separately billable procedures was not included in the critical care time. Discuss with daughter at bedside.. Care plan discussed. All questions answered. Rosalio Bowie MD Mar 16, 2016 08:08
[2016-03-16] MEDS: SODIUM CHLORIDE 0.9% FLUSH 5 ML FLUSH IV FLUSH SCH ×2 (08:11→20:30)
[2016-03-16] MEDS: PANTOPRAZOLE SODIUM 40 MG VIAL IV SCH (08:11)
[2016-03-16] MEDS: SODIUM CHLORIDE 0.9% FLUSH 5 ML FLUSH IVF SCH (08:11)
[2016-03-16] MEDS: DOCUSATE SODIUM 100 MG CAP PO SCH ×2 (08:11→20:30)
[2016-03-16] MEDS ORDERED: POTASSIUM CHLOR 20 MEQ PREMIX 100 ML IV ONE (08:15)
[2016-03-16] MEDS: POLYETHYLENE GLYCOL 17 GM PKG PO SCH ×2 (08:23→20:31)
[2016-03-16] MEDS: LACTULOSE SYRUP 20 GM/30 ML CUP PO SCH ×4 (08:23→20:30)
[2016-03-16] MEDS: HEPARIN SODIUM - SQ 10,000 UNITS/ML VIAL SQ SCH ×2 (08:23→20:31)
[2016-03-16] MEDS: SENNOSIDES 8.6 MG TAB PO SCH ×2 (08:23→20:30)
--- NOTE | 2016-03-16 08:28 | RADRPT ---
EXAM DATE/TIME: 03/15/2016 15:26 [facility] COMPARISON: CT ABDOMEN & PELVIS W/O CONTRAST, March 12, 2016, 16:59. INDICATIONS : Diffuse abdominal pain; possible pancreatitis. ORAL CONTRAST: No oral contrast ingested. RADIATION DOSE: 22.45 CTDIvol (mGy) MEDICAL HISTORY : Hypertension. Carcinoma, breast. SURGICAL HISTORY : Hysterectomy. ENCOUNTER: Initial ACUITY: 2 weeks PAIN SCALE: 6/10 LOCATION: Diffuse abdomen/pelvis TECHNIQUE: Volumetric scanning of the abdomen and pelvis was performed. Using automated exposure control and ad justment of the mA and/or kV according to patient size, radiation dose was kept as low as reasonably achievable to obtain optimal diagnostic quality images. FINDINGS: LOWER LUNGS: Bibasilar atelectasis, left greater than right. No significant change. LIVER: Homogeneous density without lesion. There is no dilation of the biliary tree. There is a trace of as cites adjacent to the liver. No significant change compared to the prior study. SPLEEN: Normal size without lesion. PANCREAS: There continues to be diffuse inflammatory changes surrounding the entire pancreas characteristic of pancreatitis. No new or significant changes are demonstrated compared to the prior study. KIDNEYS: Normal in size and shape. There is no mass, stone, or hydronephrosis. ADRENAL GLANDS: Within normal limits. VASCULAR: There is no aortic aneurysm. BOWEL/MESENTERY: Bowel gas pattern is within normal limits. There is contrast in the colon. The previously noted gas b ubbles along the wall of the cecum are no longer demonstrated. No free air is seen. There continues t o be some fluid in both paracolic gutters characteristic of a pancreatitis. No loculated fluid collec tions are demonstrated. ABDOMINAL WALL: There continues to be edema in the subcutaneous tissues of the body wall. No significant change. RETROPERITONEUM: There is no lymphadenopathy. BLADDER: Decompressed. Azul catheter. REPRODUCTIVE: No significant change INGUINAL: There is no lymphadenopathy or hernia. MUSCULOSKELETAL: Stable degenerative changes. CONCLUSION: 1. Compared to the prior exam, the previously noted gas bubbles in the wall of the cecum have resolve d. 2. Otherwise, no other new or significant changes compared to the prior study. Wilver Bond MD on March 16, 2016 at 8:18 Board Certified Radiologist. This report was verified electronically.
[2016-03-16] MEDS ORDERED: METHYLNALTREXONE BROMIDE 12 MG/0.6 ML VIAL SQ ONE (08:30)
--- NOTE | 2016-03-16 08:52 | RADRPT ---
EXAM DATE/TIME: 03/16/2016 08:09 [facility] COMPARISON: CT ABDOMEN & PELVIS W/O CONTRAST, March 15, 2016, 15:26. ABDOMEN KUB ONLY, March 09, 2016, 11: 11. INDICATIONS : Abdominal pain, evaluate ileus MEDICAL HISTORY : Hypertension. Carcinoma, breast. Renal failure, chronic. SURGICAL HISTORY : Mastectomy, right. Hysterectomy. ENCOUNTER: Subsequent ACUITY: 2 weeks PAIN SCORE: Non-responsive. LOCATION: Bilateral abdomen FINDINGS: Supine view of the abdomen was performed. The abdominal bowel gas pattern is nonspecific. There are some air filled mildly dilated loops of small bowel. There is an air-filled colon which is nondistend ed. There is a Dobbhoff tube in the proximal duodenum. There is an internal biliary stent in place. T he bowel gas pattern is not significant change compared to the prior examination. CONCLUSION: Nonspecific bowel gas pattern with some air-filled loops of small and large bowel. This can be seen w ith an ileus. This has not significantly changed compared to the prior exam. Wilver Bond MD on March 16, 2016 at 8:48 Board Certified Radiologist. This report was verified electronically.
[2016-03-16] MEDS ORDERED: INSULIN DETEMIR 100 UNITS/ML VIAL SQ SCH (09:00)
[2016-03-16] MEDS: ACETAMINOPHEN/HYDROcodone 325 MG/5 MG TAB PO PRN ×2 (09:58→22:11)
--- NOTE | 2016-03-16 10:05 | HHI.GIFU ---
Subjective Remarks Resting in bed. Getting HD. Nurse reports intraabdominal pressure was 24 this am. S/P Relistor this am with multiple laxatives, good response with less abdominal distention and large liquid stool. Passing large amount of gas. ( Nakita Crowe) Objective Vitals I&O Vital Signs Date Time Temp Pulse Resp B/P Pulse Ox O2 Delivery O2 Flow Rate FiO2 03/16/16 09:00 100 03/16/16 08:44 97 Nasal Cannula 2.00 03/16/16 08:00 98.8 106 35 180/77 97 03/16/16 07:00 97 Nasal Cannula 3.00 03/16/16 06:00 112 03/16/16 04:00 97.9 117 37 178/74 95 03/16/16 04:00 117 03/16/16 02:00 94 03/16/16 00:00 98.6 87 22 164/72 95 03/16/16 00:00 107 03/15/16 22:00 107 03/15/16 20:36 98 Nasal Cannula 2.00 03/15/16 20:00 98.4 112 37 163/77 97 03/15/16 20:00 113 03/15/16 19:00 97 Nasal Cannula 3.00 03/15/16 18:00 95 03/15/16 16:00 118 03/15/16 16:00 99.0 104 29 164/73 99 03/15/16 14:00 88 03/15/16 12:00 106 03/15/16 12:00 100.8 103 35 153/70 95 03/15/16 10:00 107 I/O 03/15/16 03/15/16 03/15/16 03/16/16 03/16/16 03/16/16 07:00 15:00 23:00 07:00 15:00 23:00 Intake Total 447 ml 553 ml 429 ml 1043 ml Output Total 500 ml 3750 ml 275 ml 225 ml Balance -53 ml -3197 ml 154 ml 818 ml IV Total 417 ml 553 ml 346 ml 548 ml TPN/PPN 83 ml 495 ml Tube Irrigant 30 ml Output Urine Total 500 ml 250 ml 275 ml 225 ml Hemodialysis 3500 ml # Bowel Movements 0 Laboratory Laboratory Tests Test 03/16/16 04:15 White Blood Count 17.9 Red Blood Count 3.10 Hemoglobin 8.7 Hematocrit 27.8 Mean Corpuscular Volume 89.6 Mean Corpuscular Hemoglobin 28.2 Mean Corpuscular Hemoglobin 31.5 Concent Red Cell Distribution Width 15.5 Platelet Count 424 Mean Platelet Volume 9.4 Neutrophils (%) (Auto) 87.6 Lymphocytes (%) (Auto) 2.6 Monocytes (%) (Auto) 8.7 Eosinophils (%) (Auto) 0.7 Basophils (%) (Auto) 0.4 Neutrophils # (Auto) 15.7 Lymphocytes # (Auto) 0.5 Monocytes # (Auto) 1.6 Eosinophils # (Auto) 0.1 Basophils # (Auto) 0.1 CBC Comment AUTO DIFF Differential Total Cells 100 Counted Neutrophils % (Manual) 78 Band Neutrophils % 3 Lymphocytes % 4 Monocytes % 4 Basophils % 3 Neutrophils # (Manual) 15.9 Metamyelocytes 3 Myelocytes 5 Differential Comment FINAL DIFF MANUAL Platelet Estimate HIGH Platelet Morphology Comment NORMAL Keratocytes OCC Prothrombin Time 12.7 Prothromb Time International 1.1 Ratio Activated Partial 23.0 Thromboplast Time Fibrinogen 259 Sodium Level 140 Potassium Level 3.6 Chloride Level 103 Carbon Dioxide Level 24.7 Anion Gap 12 Blood Urea Nitrogen 63 Creatinine 2.30 Estimat Glomerular Filtration 26 Rate Random Glucose 546 Lactic Acid Level 1.2 Calcium Level 9.7 Phosphorus Level 3.7 Magnesium Level 2.2 Total Bilirubin 0.8 Aspartate Amino Transf 30 (AST/SGOT) Alanine Aminotransferase 23 (ALT/SGPT) Alkaline Phosphatase 99 Total Protein 6.9 Albumin 2.5 Amylase Level 42 Lipase 263 Date/Time Procedure Status Source Growth 03/15/16 09:30 Urine Culture Received Urine Clean Catch Pending 03/13/16 11:25 Aerobic Blood Culture - Preliminary Resulted Blood Other NO GROWTH IN 2 DAYS 03/13/16 11:25 Anaerobic Blood Culture - Final Resulted Blood Other QNS - SEE AEROBE REPORT Imaging Last Impressions Abdomen X-Ray 03/16/16 0000 Signed Impressions: Service Date/Time: February 08:09 - CONCLUSION: Nonspecific bowel gas pattern with some air-filled loops of small and large bowel. This can be seen with an ileus. This has not significantly changed compared to the prior exam. Wilver Bond MD Abdomen/Pelvis CT 03/15/16 0000 Signed Impressions: Service Date/Time: Tuesday, March 15, 2016 15:26 - CONCLUSION: 1. Compared to the prior exam, the previously noted gas bubbles in the wall of the cecum have resolved. 2. Otherwise, no other new or significant changes compared to the prior study. Wilver Bond MD Chest X-Ray 03/14/16 1159 Signed Impressions: Service Date/Time: Monday, March 14, 2016 12:22 - CONCLUSION: 1. Right-sided central line in place. 2. No pneumothorax. Wilver Bond MD Head CT 03/14/16 0000 Signed Impressions: Service Date/Time: Monday, March 14, 2016 16:13 - CONCLUSION: Normal examination. Jere Toro MD Renal Ultrasound 03/13/16 0000 Signed Impressions: Service Date/Time: Sunday, March 13, 2016 16:39 - CONCLUSION: Unremarkable renal ultrasound. KSamuel Lundy MD GI Procedure 03/05/16 0000 Signed Impressions: Service Date/Time: Friday, March 04, 2016 23:02 - CONCLUSION: ERCP as above. Vidal Ye MD Gall Bladder Ultrasound 03/04/16 0000 Signed Impressions: Service Date/Time: Friday, March 04, 2016 19:36 - CONCLUSION: 1. Thick-walled gallbladder with some pericholecystic fluid and multiple gallstones in the region of the neck. The findings are suggestive of acute cholecystitis. Clinical correlation is recommended. 2. Fatty liver. 3. Minimal ascites within Polanco's pouch. 4. Poor visualization of the pancreas due to shadowing bowel gas. Odilon Butler MD Cholangiopancreatography MRI 03/04/16 0000 Signed Impressions: Service Date/Time: Friday, March 04, 2016 18:24 - CONCLUSION: 1. Extensive edema throughout the retroperitoneum and pancreas. No abscess or pseudocyst. 2. Tiny layering gallstones within the gallbladder. No discrete common bile duct stone. There is tapering of the common bile duct within the pancreatic head felt to be secondary to the edema within the pancreas. No discrete mass or choledocholithiasis. No intrahepatic or extrahepatic ductal dilatation. Maxwell Hsu Jr., MD Physical Exam NECK: Neck is supple, no JVD, no lymphadenopathy. CHEST: Resp. shallow, mildly tachypneic. CARDIAC: ST ABDOMEN: Soft, distended, hypoactive bowel sounds. Large liquid stool, passing large amount of flatus EXTREMITIES: Generalized edema. SKIN: Lethargic. (Nakita Crowe) Assessment and Plan Plan ASSESSMENT: - Severe diffuse ileus. Abdomen/Pelvis CT (03/15/16)-----> 1. Compared to the prior exam, the previously noted gas bubbles in the wall of the cecum have resolved. 2. Otherwise, no other new or significant changes compared to the prior study. Abdomen X-Ray (03/16/16)-----> Nonspecific bowel gas pattern with some air-filled loops of small and large bowel. This can be seen with an ileus. This has not significantly changed compared to the prior exam. Intraabdominal pressure was 24 this am. S/P Relistor today along with colace, miralax, lactulose, senokot with excellent response- passing large amount of flatus and liquid stool. Abdominal pressure still 23, but clinically, she is much less distended, and is passing large amount of flatus and stool. Will start trickle feeds via dobhoff to see if this helps stimulate her bowel, if worsening distention will place back on hold and change dobhoff to NGT to LIWS. Add Reglan at renal dose. cont. bowel regimen. - Severe acute gallstone pancreatitis. S/P ERCP (03/04/16)-----> stricture in the distal common bile duct, normal intrahepatic ducts, normal pancreatic ducts , patent cystic duct. S/P stent placement. Dobhoff, but clamped. Triglycerides 117. IgG [address] scan 03/15 with diffuse inflammatory changes surrounding the entire pancreas characteristic of pancreatitis. No new or significant changes are demonstrated compared to the prior study. TPN. IVF. - Biliary obstruction/cholangitis secondary to pancreatic head edema. S/P ERCP (03/04/16)-----> stricture in the distal common bile duct, normal intrahepatic ducts, normal pancreatic ducts, patent cystic duct. S/P stent placement. Abx per ID. - Acute cholecystitis. GS following. ? cholecystostomy tube. - Acute sepsis, Leukocytosis. Abx per ID. - Acute renal failure. HD per renal. - Resp. Insuff. Resp. shallow/tachypneic. Diminished breath sounds. On N/C, O2 90%. - Anemia. H/H 8.7/27.8. - Elevated Glucose, insulin gtt per primary Recommendations - NPO - Rectal tube to LIWS - Abx per ID - Await IgG 4 level - GS following for acute cholecystitis - Add Reglan 5mg IV q8h - Cont. Miralax, Lactulose, Senokot - S/P Relistor (03/16/16), excellent response - KUB in am - Supportive care - D/W Dr. Bowie - D/W Dr. Ceballos - Further recommendations to follow - Patient seen and examined by Dr. Stroud and myself and this note is written on his behalf. (Nakita Crowe) Physician Comments Seen and examined, plan as above, further recommendations to follow. (Dottie Stroud MD) Nakita Crowe Mar 16, 2016 10:05 Dottie Stroud MD Mar 16, 2016 10:56
[2016-03-16] MEDS: MICAFUNGIN INJ 150 MG in SODIUM CHLORIDE 0.9% INJ 100 ML IV SCH (10:17)
--- NOTE | 2016-03-16 10:37 | HHI.PR ---
Subjective Subjective Notes WBC improving. She is now on TPN. She does not have any complaints. Currently undergoing dialysis. Objective Vitals/I&O Vital Signs Date Time Temp Pulse Resp B/P Pulse Ox O2 Delivery O2 Flow Rate FiO2 03/16/16 10:00 106 03/16/16 08:44 97 Nasal Cannula 2.00 03/16/16 08:00 98.8 35 180/77 Labs Laboratory Tests Test 03/16/16 04:15 White Blood Count 17.9 Red Blood Count 3.10 Hemoglobin 8.7 Hematocrit 27.8 Mean Corpuscular Volume 89.6 Mean Corpuscular Hemoglobin 28.2 Mean Corpuscular Hemoglobin 31.5 Concent Red Cell Distribution Width 15.5 Platelet Count 424 Mean Platelet Volume 9.4 Neutrophils (%) (Auto) 87.6 Lymphocytes (%) (Auto) 2.6 Monocytes (%) (Auto) 8.7 Eosinophils (%) (Auto) 0.7 Basophils (%) (Auto) 0.4 Neutrophils # (Auto) 15.7 Lymphocytes # (Auto) 0.5 Monocytes # (Auto) 1.6 Eosinophils # (Auto) 0.1 Basophils # (Auto) 0.1 CBC Comment AUTO DIFF Differential Total Cells 100 Counted Neutrophils % (Manual) 78 Band Neutrophils % 3 Lymphocytes % 4 Monocytes % 4 Basophils % 3 Neutrophils # (Manual) 15.9 Metamyelocytes 3 Myelocytes 5 Differential Comment FINAL DIFF MANUAL Platelet Estimate HIGH Platelet Morphology Comment NORMAL Keratocytes OCC Prothrombin Time 12.7 Prothromb Time International 1.1 Ratio Activated Partial 23.0 Thromboplast Time Fibrinogen 259 Sodium Level 140 Potassium Level 3.6 Chloride Level 103 Carbon Dioxide Level 24.7 Anion Gap 12 Blood Urea Nitrogen 63 Creatinine 2.30 Estimat Glomerular Filtration 26 Rate Random Glucose 546 Lactic Acid Level 1.2 Calcium Level 9.7 Phosphorus Level 3.7 Magnesium Level 2.2 Total Bilirubin 0.8 Aspartate Amino Transf 30 (AST/SGOT) Alanine Aminotransferase 23 (ALT/SGPT) Alkaline Phosphatase 99 Total Protein 6.9 Albumin 2.5 Amylase Level 42 Lipase 263 Date/Time Procedure Status Source Growth 03/15/16 09:30 Urine Culture Received Urine Clean Catch Pending 03/13/16 11:25 Aerobic Blood Culture - Preliminary Resulted Blood Other NO GROWTH IN 2 DAYS 03/13/16 11:25 Anaerobic Blood Culture - Final Resulted Blood Other QNS - SEE AEROBE REPORT Radiology Last Impressions GI Procedure 03/05/16 0000 Signed Impressions: Service Date/Time: Friday, March 04, 2016 23:02 - CONCLUSION: ERCP as above. Vidal Ye MD Chest X-Ray 03/04/16 1626 Signed Impressions: Service Date/Time: Friday, March 04, 2016 16:52 - CONCLUSION: 1. Mild cardiomegaly. 2. No acute focal pulmonary infiltrate or pulmonary vascular congestion. 3. Mild elevation of right hemidiaphragm. Odilon Butler MD Gall Bladder Ultrasound 03/04/16 0000 Signed Impressions: Service Date/Time: Friday, March 04, 2016 19:36 - CONCLUSION: 1. Thick-walled gallbladder with some pericholecystic fluid and multiple gallstones in the region of the neck. The findings are suggestive of acute cholecystitis. Clinical correlation is recommended. 2. Fatty liver. 3. Minimal ascites within Polanco's pouch. 4. Poor visualization of the pancreas due to shadowing bowel gas. Odilon Butler MD Cholangiopancreatography MRI 03/04/16 0000 Signed Impressions: Service Date/Time: Friday, March 04, 2016 18:24 - CONCLUSION: 1. Extensive edema throughout the retroperitoneum and pancreas. No abscess or pseudocyst. 2. Tiny layering gallstones within the gallbladder. No discrete common bile duct stone. There is tapering of the common bile duct within the pancreatic head felt to be secondary to the edema within the pancreas. No discrete mass or choledocholithiasis. No intrahepatic or extrahepatic ductal dilatation. Maxwell Hsu Jr., MD Narrative Exam Awake and alert, no distress CV: RRR Abd: Soft, moderate upper abdominal ttp A/P Assessment and Plan 66 yo F with biliary obstruction secondary to pancreatic head edema s/p ERCP with stent, gallstone pancreatitis, acute cholecystitis. Recent CT a/p shows possible pneumatosis of right colon to have resolved. WBC is improving. She is stooling. Bladder pressures most recently 23-24 improved from high 20s. I would hold off on tube feeds and place rectal tube as she appears to still have ileus especially colonic. Most likely ARF is multifactorial and the morbidity of decompression of her abdomen for presumed abdominal compartment syndrome at this point would be worse than current tx. She appears to have necrotizing pancreatitis. WBC much better on new antibiotic regimen. For now would continue current treatment. If WBC goes back up she needs aspiration of pancreatic fluid for gram stain and culture, and if infected transfer to tertiary center for possible debridement. Case d/w Dr. Bowie, Nakita CORONADO, and bedside nurse. Tucker,Brian EDWARDS Mar 16, 2016 10:37
[2016-03-16] MEDS: NITROGLYCERIN 2% OINT 1 GM PACKET TOPICAL SCH ×2 (11:33→17:15)
[2016-03-16] MEDS: MORPHINE SULFATE 4 MG/ML INJ IV PUSH PRN ×3 (11:59→17:14)
[2016-03-16] MEDS: LABETALOL HCL 100 MG/20 ML VIAL IV PUSH PRN (12:51)
[2016-03-16] MEDS: METOCLOPRAMIDE HCL 10 MG/2 ML VIAL IV PUSH SCH ×2 (13:14→22:10)
[2016-03-16] MEDS ORDERED: INSULIN HUMAN REGULAR 1,000 UNITS/10 ML VIAL SQ ONE (13:15)
--- NOTE | 2016-03-16 14:39 | HHI.IDPN ---
Subjective Subjective Remarks Delayed entry. is a 66-year-old woman who was admitted to the hospital with nausea and vomiting with severe abdominal pain and no po intake on admission.She also reports diarrhea prior to arrival. Patient reported chills on admission. No prior h/o gallstones or pancreatic issues. Being treated acute pancreatitis and acute cholangitis. Overnight events reviewed No fevers UO low. Undergoing HD per Nephro. WBC better. Clinically overall slightly better. No rash No diarrhea Antibiotics Meropenem IV Micafungin IV Lines Line sites with no e/o infection Past Medical History reviewed. Allergies: Coded Allergies: No Known Allergies (Verified , 02/18/15) Objective . Vital Signs Date Time Temp Pulse Resp B/P Pulse Ox O2 Delivery O2 Flow Rate FiO2 03/16/16 14:00 103 03/16/16 13:45 28 03/16/16 12:00 103 03/16/16 12:00 98.0 103 32 179/85 97 03/16/16 10:00 106 03/16/16 09:00 100 03/16/16 08:44 97 Nasal Cannula 2.00 03/16/16 08:00 98.8 106 35 180/77 97 03/16/16 07:00 97 Nasal Cannula 3.00 03/16/16 06:00 112 03/16/16 04:00 97.9 117 37 178/74 95 03/16/16 04:00 117 03/16/16 02:00 94 03/16/16 00:00 98.6 87 22 164/72 95 03/16/16 00:00 107 03/15/16 22:00 107 03/15/16 20:36 98 Nasal Cannula 2.00 03/15/16 20:00 98.4 112 37 163/77 97 03/15/16 20:00 113 03/15/16 19:00 97 Nasal Cannula 3.00 03/15/16 18:00 95 03/15/16 16:00 118 03/15/16 16:00 99.0 104 29 164/73 99 03/15/16 03/15/16 03/16/16 14:59 22:59 06:59 Intake Total 553 ml 429 ml 1043 ml Output Total 3750 ml 275 ml 225 ml Balance -3197 ml 154 ml 818 ml IV Total 553 ml 346 ml 548 ml TPN/PPN 83 ml 495 ml Output Urine Total 250 ml 275 ml 225 ml Hemodialysis 3500 ml # Bowel Movements 0 . Laboratory Tests Test 03/15/16 03/16/16 03:53 04:15 White Blood Count 23.6 TH/MM3 17.9 TH/MM3 Red Blood Count 2.96 MIL/MM3 3.10 MIL/MM3 Hemoglobin 8.4 GM/DL 8.7 GM/DL Hematocrit 25.6 % 27.8 % Mean Corpuscular Volume 86.5 FL 89.6 FL Mean Corpuscular Hemoglobin 28.3 PG 28.2 PG Mean Corpuscular Hemoglobin 32.8 % 31.5 % Concent Red Cell Distribution Width 15.5 % 15.5 % Platelet Count 390 TH/MM3 424 TH/MM3 Mean Platelet Volume 9.0 FL 9.4 FL Neutrophils (%) (Auto) 86.4 % 87.6 % Lymphocytes (%) (Auto) 3.3 % 2.6 % Monocytes (%) (Auto) 9.2 % 8.7 % Eosinophils (%) (Auto) 0.9 % 0.7 % Basophils (%) (Auto) 0.2 % 0.4 % Neutrophils # (Auto) 20.4 TH/MM3 15.7 TH/MM3 Lymphocytes # (Auto) 0.8 TH/MM3 0.5 TH/MM3 Monocytes # (Auto) 2.2 TH/MM3 1.6 TH/MM3 Eosinophils # (Auto) 0.2 TH/MM3 0.1 TH/MM3 Basophils # (Auto) 0.0 TH/MM3 0.1 TH/MM3 CBC Comment AUTO DIFF AUTO DIFF Differential Total Cells 100 100 Counted Neutrophils % (Manual) 74 % 78 % Band Neutrophils % 18 % 3 % Lymphocytes % 1 % 4 % Monocytes % 1 % 4 % Eosinophils % 2 % Neutrophils # (Manual) 22.4 TH/MM3 15.9 TH/MM3 Metamyelocytes 2 % 3 % Myelocytes 1 % 5 % Differential Comment FINAL DIFF FINAL DIFF MANUAL MANUAL Plasma Cells 1 % Toxic Granulation 2+ Platelet Estimate NORMAL HIGH Platelet Morphology Comment NORMAL NORMAL Basophils % 3 % Keratocytes OCC Laboratory Tests Test 03/14/16 03/15/16 03/16/16 17:17 03:53 04:15 Ammonia 21 MCMOL/L Sodium Level 144 MEQ/L 140 MEQ/L Potassium Level 3.4 MEQ/L 3.6 MEQ/L Chloride Level 106 MEQ/L 103 MEQ/L Carbon Dioxide Level 24.7 MEQ/L 24.7 MEQ/L Anion Gap 13 MEQ/L 12 MEQ/L Blood Urea Nitrogen 56 MG/DL 63 MG/DL Creatinine 2.04 MG/DL 2.30 MG/DL Estimat Glomerular Filtration 30 ML/MIN 26 ML/MIN Rate Random Glucose 259 MG/DL 546 MG/DL Lactic Acid Level 1.1 mmol/L 1.2 mmol/L Calcium Level 9.9 MG/DL 9.7 MG/DL Phosphorus Level 3.9 MG/DL 3.7 MG/DL Magnesium Level 2.1 MG/DL 2.2 MG/DL Total Bilirubin 0.8 MG/DL 0.8 MG/DL Aspartate Amino Transf 28 U/L 30 U/L (AST/SGOT) Alanine Aminotransferase 24 U/L 23 U/L (ALT/SGPT) Alkaline Phosphatase 98 U/L 99 U/L Total Protein 7.2 GM/DL 6.9 GM/DL Albumin 2.8 GM/DL 2.5 GM/DL Amylase Level 42 U/L Lipase 263 U/L Microbiology Date/Time Procedure Status Source Growth 03/15/16 09:30 Urine Culture - Preliminary Resulted Urine Clean Catch NO GROWTH IN 24 HOURS. Imaging Last Impressions Chest X-Ray 03/09/16 0000 Signed Impressions: Service Date/Time: February 13:11 - CONCLUSION: Left lower lobe atelectasis versus infiltrate is unchanged. Maxwell Hsu Jr., MD Abdomen X-Ray 03/09/16 0000 Signed Impressions: Service Date/Time: February 11:11 - CONCLUSION: 1. The tip of the weighted feeding tube is located in the descending portion of the duodenum. Scar Resendez MD Abdomen/Pelvis CT 03/08/16 0000 Signed Impressions: Service Date/Time: Tuesday, March 08, 2016 15:28 - CONCLUSION: Severe changes of pancreatitis, potentially with areas of hemorrhagic conversion. Darrian Engel MD GI Procedure 03/05/16 0000 Signed Impressions: Service Date/Time: Friday, March 04, 2016 23:02 - CONCLUSION: ERCP as above. Vidal Ye MD Gall Bladder Ultrasound 03/04/16 0000 Signed Impressions: Service Date/Time: Friday, March 04, 2016 19:36 - CONCLUSION: 1. Thick-walled gallbladder with some pericholecystic fluid and multiple gallstones in the region of the neck. The findings are suggestive of acute cholecystitis. Clinical correlation is recommended. 2. Fatty liver. 3. Minimal ascites within Polanco's pouch. 4. Poor visualization of the pancreas due to shadowing bowel gas. Odilon Butler MD Cholangiopancreatography MRI 03/04/16 0000 Signed Impressions: Service Date/Time: Friday, March 04, 2016 18:24 - CONCLUSION: 1. Extensive edema throughout the retroperitoneum and pancreas. No abscess or pseudocyst. 2. Tiny layering gallstones within the gallbladder. No discrete common bile duct stone. There is tapering of the common bile duct within the pancreatic head felt to be secondary to the edema within the pancreas. No discrete mass or choledocholithiasis. No intrahepatic or extrahepatic ductal dilatation. Maxwell Hsu Jr., MD Physical Exam GENERAL: Obese AAF patient, in no apparent distress. SKIN: No rashes, ecchymoses or lesions. Cool and dry. HEAD: Atraumatic. Normocephalic. No temporal or scalp tenderness. EYES: Pupils equal round and reactive. Extraocular motions intact. No scleral icterus. No injection or drainage. ENT: Nose without bleeding, purulent drainage or septal hematoma. Throat without erythema, tonsillar hypertrophy or exudate. Uvula midline. Airway patent. NECK: Trachea midline. Supple, nontender, no meningeal signs. CARDIOVASCULAR: HS audible. No murmur. RESPIRATORY: Clear to auscultation. Breath sounds equal bilaterally but decreased in the bases. GASTROINTESTINAL: Abdomen soft, tenderness in RUQ and epigastric region, distended, abd wall edema noted. MUSCULOSKELETAL: Generalized anasarca noted. NEUROLOGICAL: Awake and alert. Grossly non focal Psych: cooperative IV line sites with no e/o infection. Assessment & Plan Remarks SIRS possible Sepsis Acute Severe Pancreatitis with hemorrhage. Acute Pneumatosis Intestinalis (vs anasarca related bowel edema, cdiff) Acute cholangitis Recs: Continue Meropenem IV Continue Micafungin IV D/w Follow cultures Follow clinically. D.w RN and patient. I will be OOT from 03/17/16 to 04/05/2016. Other ID MDs covering for me. Cely Ayers MD Mar 16, 2016 14:38
--- NOTE | 2016-03-16 15:06 | HHI.NPPN ---
Subjective Renal Failure: Acute History of Present Illness 66 year old with Gall stone Pancreatitis Objective Data Data 03/15/16 03/16/16 18:59 06:59 Intake Total 553 ml 1472 ml Output Total 3750 ml 500 ml Balance -3197 ml 972 ml IV Total 553 ml 894 ml TPN/PPN 578 ml Output Urine Total 250 ml 500 ml Hemodialysis 3500 ml # Bowel Movements 0 Vital Signs Date Time Temp Pulse Resp B/P Pulse Ox O2 Delivery O2 Flow Rate FiO2 03/16/16 14:00 103 03/16/16 13:45 28 03/16/16 12:00 103 03/16/16 12:00 98.0 103 32 179/85 97 03/16/16 10:00 106 03/16/16 09:00 100 03/16/16 08:44 97 Nasal Cannula 2.00 03/16/16 08:00 98.8 106 35 180/77 97 03/16/16 07:00 97 Nasal Cannula 3.00 03/16/16 06:00 112 03/16/16 04:00 97.9 117 37 178/74 95 03/16/16 04:00 117 03/16/16 02:00 94 03/16/16 00:00 98.6 87 22 164/72 95 03/16/16 00:00 107 03/15/16 22:00 107 03/15/16 20:36 98 Nasal Cannula 2.00 03/15/16 20:00 98.4 112 37 163/77 97 03/15/16 20:00 113 03/15/16 19:00 97 Nasal Cannula 3.00 03/15/16 18:00 95 03/15/16 16:00 118 03/15/16 16:00 99.0 104 29 164/73 99 -: 03/16/16 0415 03/16/16 0415 Physical Exam General Appearance: Well Developed Neck Neck Exam: Neck Supple Pulmonary Resp Exam: Decreased Bases Cardiology CV Exam: Tachycardia Gastrointestinal/Abdomen GI Exam: Soft, Distended Extremeties Extremities Exam: Moderate Edema, Pitting Edema Neurologic Neuro Exam: Alert, Awake Assessment/Plan Problem List: (1) Acute renal failure Plan: patient received hemodialysis UF 2 L today , be on T,T,S shift stable CT scan gas bubble in cecal wall disappeared continue supportive care for now (2) Anasarca Plan: improving with hemodialysis (3) Pancreatitis, acute Plan: She will be observed (4) Severe sepsis with acute organ dysfunction Plan: ID is following on Meropenem, and micafungin (5) Cholangitis Plan: As above Problem Qualifiers (1) Acute renal failure: Qualified Code: N17.0 - Acute renal failure with tubular necrosis (2) Pancreatitis, acute: Estela Lares MD Mar 16, 2016 15:06
[2016-03-16] MEDS ORDERED: GLUCAGON 1 MG/ML VIAL OTHER PRN (16:00)
[2016-03-16] MEDS: INSULIN REGULAR (IV INFUSION) 100 UNITS in SODIUM CHLORIDE 0.9% INJ 99 ML IV SCH ×3 (17:15→23:03)
[2016-03-16] MEDS: CLINIMIX 4.25/25 (Cust.Renal Central) 2000 mL- >42 mls/hr IV-CENTRAL SCH ×8 (20:29)
[2016-03-16] MEDS: INSULIN DETEMIR 100 UNITS/ML VIAL SQ SCH (20:32)
[2016-03-17] VITALS (13 sets, daily range): BP systolic 105–181; BP diastolic 52–73; PULSE 79–120; RESP 22–30; TEMP 97.5–99.7; O2SAT 94–100
[2016-03-17] MEDS: MEROPENEM INJ 1,000 MG in SODIUM CHLORIDE 0.9% INJ 100 ML IV SCH ×2 (00:49→12:58)
[2016-03-17] MEDS: METOPROLOL TARTRATE 5 MG/5 ML VIAL IV PUSH SCH ×5 (00:49→19:56)
[2016-03-17] MEDS: NITROGLYCERIN 2% OINT 1 GM PACKET TOPICAL SCH ×4 (01:04→17:30)
[2016-03-17 03:51] LABS: IGG SUBCLASSES 4 28.4 mg/dL (4-86)
[2016-03-17] MEDS: CHLORHEXIDINE GLUCONATE 2 % 1 PACK (2 CLOTHS) TOP SCH (04:00)
[2016-03-17 04:37] LABS: AUTOMATED NEUTROPHIL # 14.3 TH/MM3 (1.8-7.7); BASOPHIL # 0.1 TH/MM3 (0-0.2); BASOPHIL % 0.3 % (0.0-2.0); EOSINOPHIL # 0.2 TH/MM3 (0-0.4); EOSINOPHIL % 1.2 % (0.0-4.0); HEMATOCRIT 25.4 % (35.0-46.0); LYMPH % 5.3 % (9.0-44.0); LYMPHOCYTE # 0.9 TH/MM3 (1.0-4.8); MEAN CELL VOLUME 86.6 FL (80.0-100.0); MEAN CORPUSCULAR HEMOGLOBIN 27.7 PG (27.0-34.0); NEUT % 82.2 % (16.0-70.0); PLATELET COUNT 388 TH/MM3 (150-450); RED BLOOD COUNT 2.93 MIL/MM3 (4.00-5.30); RED CELL DISTRIBUTION WIDTH 15.2 % (11.6-17.2); WHITE BLOOD COUNT 17.5 TH/MM3 (4.0-11.0)
[2016-03-17 04:58] LABS: HEMO FLAGS AUTO DIFF
[2016-03-17 05:00] LABS: ALKALINE PHOSPHATASE 100 U/L (45-117); ALT (GPT) 20 U/L (10-53); ANION GAP 8 MEQ/L (5-15); AST (GOT) 27 U/L (15-37); BICARBONATE 29.5 MEQ/L (21.0-32.0); BLOOD UREA NITROGEN 61 MG/DL (7-18); CHLORIDE 109 MEQ/L (98-107); GLOMERULAR FILTRATION RATE 31 ML/MIN (>89); MAGNESIUM 2.1 MG/DL (1.5-2.5); POTASSIUM 3.4 MEQ/L (3.5-5.1); SODIUM (NA) 146 MEQ/L (136-145); TOTAL BILIRUBIN ADULT 0.5 MG/DL (0.2-1.0)
[2016-03-17 05:04] LABS: CREATINE KINASE 24 U/L (26-192)
[2016-03-17] MEDS: METOCLOPRAMIDE HCL 10 MG/2 ML VIAL IV PUSH SCH ×3 (05:38→21:14)
--- NOTE | 2016-03-17 06:36 | RADRPT ---
EXAM DATE/TIME: 03/17/2016 05:14 [facility] COMPARISON: ABDOMEN KUB ONLY, March 16, 2016, 8:09. INDICATIONS : Evaluate for ileus. MEDICAL HISTORY : Hypertension. Carcinoma, breast. Renal failure, chronic. SURGICAL HISTORY : Mastectomy, right. Hysterectomy ENCOUNTER: Subsequent ACUITY: 1 week PAIN SCORE: Non-responsive. LOCATION: Bilateral abdomen FINDINGS: Supine view of the abdomen was performed. Mild distention of bowel loop within the right abdomen is u nchanged. Dobbhoff tube noted with tip in the distal duodenum. Biliary stent noted. No abnormal aden s, calcifications, or organomegaly is seen. Large catheter overlies the pelvis may be related to re ctal tube. Severe osteoarthritis of both hips greater on the left. CONCLUSION: Mild distention of bowel loop in the right abdomen is likely related to mild gaseous distention of th e cecum/ascending colon. There is left distention on current study. Wilian Rojas MD on March 17, 2016 at 6:30 Board Certified Radiologist. This report was verified electronically.
[2016-03-17] MEDS: INSULIN REGULAR (IV INFUSION) 100 UNITS in SODIUM CHLORIDE 0.9% INJ 99 ML IV SCH (07:29)
[2016-03-17] MEDS: POLYETHYLENE GLYCOL 17 GM PKG PO SCH ×2 (08:01→20:08)
[2016-03-17] MEDS: DOCUSATE SODIUM 100 MG CAP PO SCH ×2 (08:01→20:07)
[2016-03-17] MEDS: LACTULOSE SYRUP 20 GM/30 ML CUP PO SCH ×4 (08:01→20:07)
[2016-03-17] MEDS: PANTOPRAZOLE SODIUM 40 MG VIAL IV SCH (08:01)
[2016-03-17] MEDS: HEPARIN SODIUM - SQ 10,000 UNITS/ML VIAL SQ SCH ×2 (08:01→20:09)
[2016-03-17] MEDS: SENNOSIDES 8.6 MG TAB PO SCH ×2 (08:01→20:08)
[2016-03-17] MEDS: INSULIN DETEMIR 100 UNITS/ML VIAL SQ SCH ×2 (08:02→20:08)
[2016-03-17] MEDS: SODIUM CHLORIDE 0.9% FLUSH 5 ML FLUSH IV FLUSH SCH ×2 (08:02→20:07)
[2016-03-17] MEDS: SODIUM CHLORIDE 0.9% FLUSH 5 ML FLUSH IVF SCH (08:02)
[2016-03-17] MEDS: ACETAMINOPHEN/HYDROcodone 325 MG/5 MG TAB PO PRN ×2 (08:07→13:36)
[2016-03-17 09:12] LABS: BANDS 6 % (0-6); CORRECTED NUCLEATED RBC 1 /100 WBC (0-0); METAMYELOCYTES 1 % (0-1); MYELOCYTES 4 % (0-0); NEUTROPHIL # MANUAL DIFF 15.2 TH/MM3 (1.8-7.7); POLYS (SEG NEUTROPHILS) 76 % (16-70); WBC DIFF SAMPLE 100
[2016-03-17 09:13] LABS: PLATELET ESTIMATE SMEAR NORMAL (NORMAL); PLATELET MORPHOLOGY NORMAL (NORMAL); SCAN/DIFF FINAL DIFF MANUAL
[2016-03-17 09:14] LABS: ACANTHOCYTES OCC (NORMAL); KERATOCYTES OCC (NORMAL)
[2016-03-17] MEDS: MICAFUNGIN INJ 150 MG in SODIUM CHLORIDE 0.9% INJ 100 ML IV SCH (09:57)
--- NOTE | 2016-03-17 10:22 | HHI.CCPN ---
Subjective Remarks/Hospital Course > 48 hour history of epigastric pain, vomiting. GB US reveals cholecystitis with stones in neck. MRCP - pancreatitis, ducts not dilated. Received stent into a bile duct secondary to stricture due to pancreatic head edema. [facility] re -consulted today 03/12 due to patient's tachypnea and abdominal distention. 03/13 - Patient appears significantly more acutely ill since I last saw her . Answers questions in 1-2 word responses. Resting in bed with quite distant added. Diffuse in all 4 quadrants abdominal stated to be Pain 10 out of 10. Tube feeds on hold. Decreased urine output noted. 03/14: Tmax 100. Currently 98.9. Status post -4 L hemodialysis yesterday. Breathing appears intermittently tachypneic and labored however she is more alert today and able to verbally complete sentences today. No bowel movement yesterday. Tube feeds currently off. 03/15: Tmax 102. Currently 100.5. Status post -3.5 L hemodialysis today. More lethargic. TPN to be initiated today. 03/16: Afebrile overnight. Started on TPN with elevated blood sugars. Currently on insulin drip. 2 large bowel movements yesterday. She is making adequate urine output. Pain better controlled today. White cell count has decreased slowly. Clinically appears better. Subjective 03/17: Afebrile. Blood sugars are stabilized. White cell count is stabilized. Positive BM yesterday. Abdomen less distended but abdominal pressure still in the low 20s. Arousable and follows commands. Objective Vital Signs Date Time Temp Pulse Resp B/P Pulse Ox O2 Delivery O2 Flow Rate FiO2 03/17/16 10:00 84 03/17/16 09:43 94 Nasal Cannula 2.00 03/17/16 08:00 98.6 25 152/64 Intake and Output 03/16/16 03/16/16 03/16/16 07:59 15:59 23:59 Intake Total 1043 ml 1341 ml 1370 ml Output Total 225 ml 2425 ml 275 ml Balance 818 ml -1084 ml 1095 ml Result Diagram: 03/17/16 0405 03/17/16 0405 Other Results Microbiology Date/Time Procedure Status Source Growth 03/15/16 09:30 Urine Culture - Final Complete Urine Clean Catch NO GROWTH IN 48 HOURS. 03/13/16 11:25 Aerobic Blood Culture - Preliminary Resulted Blood Other NO GROWTH IN 3 DAYS 03/13/16 11:25 Anaerobic Blood Culture - Final Resulted Blood Other QNS - SEE AEROBE REPORT Imaging Last Impressions Abdomen X-Ray 03/17/16 0600 Signed Impressions: Service Date/Time: Thursday, March 17, 2016 05:14 - CONCLUSION: Mild distention of bowel loop in the right abdomen is likely related to mild gaseous distention of the cecum/ascending colon. There is left distention on current study. Wilian Rojas MD Abdomen/Pelvis CT 03/15/16 0000 Signed Impressions: Service Date/Time: Tuesday, March 15, 2016 15:26 - CONCLUSION: 1. Compared to the prior exam, the previously noted gas bubbles in the wall of the cecum have resolved. 2. Otherwise, no other new or significant changes compared to the prior study. Wilver Bond MD Chest X-Ray 03/14/16 1159 Signed Impressions: Service Date/Time: Monday, March 14, 2016 12:22 - CONCLUSION: 1. Right-sided central line in place. 2. No pneumothorax. Wilver Bond MD Head CT 03/14/16 0000 Signed Impressions: Service Date/Time: Monday, March 14, 2016 16:13 - CONCLUSION: Normal examination. Jere Toro MD Renal Ultrasound 03/13/16 0000 Signed Impressions: Service Date/Time: Sunday, March 13, 2016 16:39 - CONCLUSION: Unremarkable renal ultrasound. K. Stephen Lundy MD GI Procedure 03/05/16 0000 Signed Impressions: Service Date/Time: Friday, March 04, 2016 23:02 - CONCLUSION: ERCP as above. Vidal Ye MD Gall Bladder Ultrasound 03/04/16 0000 Signed Impressions: Service Date/Time: Friday, March 04, 2016 19:36 - CONCLUSION: 1. Thick-walled gallbladder with some pericholecystic fluid and multiple gallstones in the region of the neck. The findings are suggestive of acute cholecystitis. Clinical correlation is recommended. 2. Fatty liver. 3. Minimal ascites within Polanco's pouch. 4. Poor visualization of the pancreas due to shadowing bowel gas. Odilon Butler MD Cholangiopancreatography MRI 03/04/16 0000 Signed Impressions: Service Date/Time: Friday, March 04, 2016 18:24 - CONCLUSION: 1. Extensive edema throughout the retroperitoneum and pancreas. No abscess or pseudocyst. 2. Tiny layering gallstones within the gallbladder. No discrete common bile duct stone. There is tapering of the common bile duct within the pancreatic head felt to be secondary to the edema within the pancreas. No discrete mass or choledocholithiasis. No intrahepatic or extrahepatic ductal dilatation. Maxwell Hsu Jr., MD Objective Remarks GENERAL: 66-year-old AA female, morbidly obese, critically ill appearing, currently resting in bed in mild respiratory distress SKIN: Warm and dry. No rash HEAD: Atraumatic. Normocephalic. EYES: Pupils equal and round around 3 mm bilaterally and reactive. No scleral icterus. No injection or drainage. ENT: No nasal bleeding or discharge. Mucous membranes pink and moist. [place] fed tube in right nares NECK: Trachea midline. No JVD. Left hemodialysis catheter clean dry and intact. Right IJ CVL clean dry and intact CARDIOVASCULAR: Regular rate and rhythm. S1, S2. No S4. Without murmur RESPIRATORY: Distant breath sounds. Symmetrical excursion. Shallow respirations. GASTROINTESTINAL: Abdomen obese. Tender to palpation in all quadrants with no rebound. Voluntary guarding. No rigidity. Hypoactive bowel sounds MUSCULOSKELETAL: Extremities with 1+ lower extremity pedal edema/anasarca-like improved from yesterday. No obvious deformities. NEUROLOGICAL: Awake and alert to person only. No obvious cranial nerve deficits. Motor grossly within normal limits. Five out of 5 muscle strength in the arms and legs. Able to answer 1 or 2 words to questions PSYCHIATRIC: Depressed mood and affect. Urinary Catheter: Yes Assessment to: Continue Azul insert reason: ICU Pt Getting Diuretics Vascular Central Line Catheter: Yes Assessment to: Continue Date of Insertion: Mar 14, 2016 Line: Central Venous Catheter Side: Right Location: Internal, Jugular A/P Problem List: (1) Severe sepsis with acute organ dysfunction ICD Code: A41.9 Status: Acute (2) Cholangitis ICD Code: K83.0 Status: Acute (3) Hypertensive urgency ICD Code: I16.0 Status: Acute Assessment and Plan Neuro/Psych: Pain management for acute pancreatitis Acetaminophen for fever [place] 5/325 one every 4 hours/ morphine 2 mg every 3 hours hours when necessary for pain management CV: Severe sepsis from cholangitis and pancreatitis Hypertension by history Dyslipidemia Lactic acidosis - resolved - appears fluid overloaded, +18 kg since admission. -13.5 L past 4 dialysis sessions. Sunday/ and Sunday - repeat Lactate 03/16 6 AM normal - Holding home medications lisinopril/HCTZ in light of acute kidney injury. - Noted elevated HDL/LDL/total cholesterol - triglycerides within normal limits Consider statin when appropriate once LFTs normalize - As needed labetalol, hydralazine, Nitropaste for blood pressure control of present - Previously on metoprolol 50 mg twice a day with some SVT during this hospitalization. We'll switch to IV Lopressor 5 milligrams every 4 hours with scheduled Nitropaste 2 inches every 6 hours while nothing by mouth - 2-D echo EF 55 - 60%. Trace ANNIE 39 mmHg Resp: Acute respiratory insufficiency likely secondary to volume overload - Nasal cannula to maintain saturations greater than equal to 92% - Incentive spirometry while awake - Chest x-ray 03/13 after line placement reveals possible right lower lobe effusion/atelectasis GI: Status post ERCP/placement of stenting, bile duct secondary to stenosis Acute necrotizing Pancreatitis Possible pneumatosis intestinalis Transaminitis Hypo-albuminemia CT abdomen/pelvis 03/12 revealed multiple gallstones/worsening pancreatitis and possible pneumatosis intestinalis involving the cecum and the ascending colon Dr. Ceballos/general surgery following Discussed with Dr. Moulton yesterday. Agreed with hemodialysis and attempt to remove extra cellular fluid while maintaining intravascular volume. Difficult situation 14-24 intra-abdominal bladder pressures - Dr. Lucero/GI performed ERCP 03/04 with stent placement, distal common bile duct 8.5 Irish 7 cm secondary to stricture - Ultrasound revealed thickening in the gallbladder with pericholecystic fluid. Tiny gallstones noted. - MRCP revealed retroperitoneal edema, with edema causing potentially narrowing of the distal common bile duct Plan on repeating CT abdomen and pelvis 03/15 with oral contrast Test complete. Awaiting results. 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 I called transfer center. If unavailable will contact [facility] for another option. Discussed with surgery 03/16. Currently sinus watchful waiting. He will contact specialist pancreatic [facility] at [facility]. : Latha if needed for accurate I's and O's in critically ill patient Endo: Hyperglycemia of critical illness Algorithm 4 Levemir 60 units twice a day Resuming TPN initiated Renal: LOI - fluid overload. +16 kg since admission - Creatinine appears to be stabilizing - Avoid nephrotoxic drugs. Noted lisinopril/hctz held - Nephrology consultation. -13.5 L past 4 days -Negative urine eosinophils renal ultrasound - Follow BMP in a.m. Heme/Onc: History of breast cancer status post right mastectomy Leukocytosis Normocytic anemia CBC/coags ordered this a.m. Currently holding Letrozole 2.5 mg daily with elevated LFTs. Resume when clinically indicated ID: Possible necrotizing pancreatitis/pneumatosis intestinalis Day #5 micafungin/Merrem ID consult appreciated Pertinent cultures 03/04 - urine culture - negative 03/04 - blood cultures 2 - negative 03/07 - blood cultures 2 - negative 03/13 - blood cultures 2 -no growth 03/15 - urine culture -no growth FEN: Hypokalemia Hypophosphatemia Replace electrolytes as clinically indicated Currently nothing by mouth for general surgery TPN renal mix to be continued 30 mmol K-Phos IV 1. Recheck in a.m. MSK: Out of bed/PT evaluate and treat Access -Right IJ CVL day 4 placed 03/14 - Left IJ hemodialysis catheter placed 03/13 Prophylaxis - GI - Protonix - DVT - SCD/heparin Critical Care: The total critical care time was 35 minutes. Time to perform other separately billable procedures was not included in the critical care time. Discuss with daughter at bedside.. Care plan discussed. All questions answered. Rosalio Bowie MD Mar 17, 2016 10:22
[2016-03-17] MEDS ORDERED: POTASSIUM PHOSPHATE INJ 30 MMOL in SODIUM CHLOR 0.9% 250 ML INJ 250 ML IV ONE (11:00)
--- NOTE | 2016-03-17 11:57 | HHI.PR ---
Subjective Subjective Notes No major issues. Abd pressures recently around 13. Rectal tube in place with 500cc output overnight. Am KUB with mild colonic ileus. Objective Vitals/I&O Vital Signs Date Time Temp Pulse Resp B/P Pulse Ox O2 Delivery O2 Flow Rate FiO2 03/17/16 10:00 84 03/17/16 09:43 94 Nasal Cannula 2.00 03/17/16 08:00 98.6 25 152/64 Labs Laboratory Tests Test 03/16/16 03/17/16 16:22 04:05 Potassium Level 3.4 3.4 White Blood Count 17.5 Red Blood Count 2.93 Hemoglobin 8.1 Hematocrit 25.4 Mean Corpuscular Volume 86.6 Mean Corpuscular Hemoglobin 27.7 Mean Corpuscular Hemoglobin 32.0 Concent Red Cell Distribution Width 15.2 Platelet Count 388 Mean Platelet Volume 8.9 Neutrophils (%) (Auto) 82.2 Lymphocytes (%) (Auto) 5.3 Monocytes (%) (Auto) 11.0 Eosinophils (%) (Auto) 1.2 Basophils (%) (Auto) 0.3 Neutrophils # (Auto) 14.3 Lymphocytes # (Auto) 0.9 Monocytes # (Auto) 1.9 Eosinophils # (Auto) 0.2 Basophils # (Auto) 0.1 CBC Comment AUTO DIFF Differential Total Cells 100 Counted Neutrophils % (Manual) 76 Band Neutrophils % 6 Lymphocytes % 6 Monocytes % 7 Neutrophils # (Manual) 15.2 Metamyelocytes 1 Myelocytes 4 Nucleated Red Blood Cells 1 Differential Comment FINAL DIFF MANUAL Platelet Estimate NORMAL Platelet Morphology Comment NORMAL Acanthocytes OCC Keratocytes OCC Sodium Level 146 Chloride Level 109 Carbon Dioxide Level 29.5 Anion Gap 8 Blood Urea Nitrogen 61 Creatinine 1.97 Estimat Glomerular Filtration 31 Rate Random Glucose 217 Lactic Acid Level 1.3 Calcium Level 10.2 Phosphorus Level 2.1 Magnesium Level 2.1 Total Bilirubin 0.5 Aspartate Amino Transf 27 (AST/SGOT) Alanine Aminotransferase 20 (ALT/SGPT) Alkaline Phosphatase 100 Total Creatine Kinase 24 Total Protein 7.0 Albumin 2.3 Date/Time Procedure Status Source Growth 03/15/16 09:30 Urine Culture - Final Complete Urine Clean Catch NO GROWTH IN 48 HOURS. 03/13/16 11:25 Aerobic Blood Culture - Preliminary Resulted Blood Other NO GROWTH IN 4 DAYS 03/13/16 11:25 Anaerobic Blood Culture - Final Resulted Blood Other QNS - SEE AEROBE REPORT Radiology Last Impressions GI Procedure 03/05/16 0000 Signed Impressions: Service Date/Time: Friday, March 04, 2016 23:02 - CONCLUSION: ERCP as above. Vidal Ye MD Chest X-Ray 03/04/16 1626 Signed Impressions: Service Date/Time: Friday, March 04, 2016 16:52 - CONCLUSION: 1. Mild cardiomegaly. 2. No acute focal pulmonary infiltrate or pulmonary vascular congestion. 3. Mild elevation of right hemidiaphragm. Odilon Butler MD Gall Bladder Ultrasound 03/04/16 0000 Signed Impressions: Service Date/Time: Friday, March 04, 2016 19:36 - CONCLUSION: 1. Thick-walled gallbladder with some pericholecystic fluid and multiple gallstones in the region of the neck. The findings are suggestive of acute cholecystitis. Clinical correlation is recommended. 2. Fatty liver. 3. Minimal ascites within Polanco's pouch. 4. Poor visualization of the pancreas due to shadowing bowel gas. Odlion Butler MD Cholangiopancreatography MRI 03/04/16 0000 Signed Impressions: Service Date/Time: Friday, March 04, 2016 18:24 - CONCLUSION: 1. Extensive edema throughout the retroperitoneum and pancreas. No abscess or pseudocyst. 2. Tiny layering gallstones within the gallbladder. No discrete common bile duct stone. There is tapering of the common bile duct within the pancreatic head felt to be secondary to the edema within the pancreas. No discrete mass or choledocholithiasis. No intrahepatic or extrahepatic ductal dilatation. Maxwell Hsu Jr., MD Narrative Exam Awake and alert, no distress CV: RRR Abd: Soft, moderate upper abdominal ttp A/P Assessment and Plan 66 yo F with biliary obstruction secondary to pancreatic head edema s/p ERCP with stent, gallstone pancreatitis, acute cholecystitis. Bladder pressures better. I think ok now to restart low rate enteral feeding. Necrotizing pancreatitis- WBC stable. For now would continue current treatment. If WBC goes back up she needs aspiration of pancreatic fluid for gram stain and culture, and if infected transfer to tertiary center for possible debridement. Will not plan transfer today or over the weekend unless she were to worsen. Case d/w Dr. Bowie and bedside nurse. TuckerBrian MD Mar 17, 2016 11:57
--- NOTE | 2016-03-17 12:53 | HHI.NPPN ---
Subjective Renal Failure: Acute History of Present Illness 66 year old with Gall stone Pancreatitis Objective Data Data 03/16/16 03/17/16 19:00 07:00 Intake Total 1341 ml 2323 ml Output Total 2425 ml 975 ml Balance -1084 ml 1348 ml IV Total 597 ml 1064 ml TPN/PPN 604 ml 1199 ml Tube Irrigant 100 ml 30 ml Other 40 ml 30 ml Output Urine Total 425 ml 425 ml Stool Total 550 ml Gastric Drainage Total 0 ml Hemodialysis 2000 ml # Bowel Movements 2 Vital Signs Date Time Temp Pulse Resp B/P Pulse Ox O2 Delivery O2 Flow Rate FiO2 03/17/16 12:00 84 03/17/16 12:00 99.7 84 24 145/67 100 03/17/16 10:00 84 03/17/16 09:43 94 Nasal Cannula 2.00 03/17/16 08:00 98.6 97 25 152/64 97 03/17/16 08:00 82 03/17/16 07:00 98 Nasal Cannula 3.00 03/17/16 06:00 84 03/17/16 04:00 101 03/17/16 04:00 97.6 101 30 138/65 96 03/17/16 02:00 93 03/17/16 00:00 101 03/17/16 00:00 97.5 100 22 105/52 96 03/16/16 22:00 101 03/16/16 20:55 95 Nasal Cannula 2.00 03/16/16 20:00 101 03/16/16 20:00 97.3 102 32 132/61 95 03/16/16 19:00 95 Nasal Cannula 3.00 03/16/16 18:00 96 03/16/16 16:00 104 03/16/16 16:00 99.9 104 26 130/60 95 03/16/16 14:00 103 03/16/16 13:45 28 -: 03/17/16 0405 03/17/16 0405 Physical Exam General Appearance: Well Developed Neck Neck Exam: Neck Supple Pulmonary Resp Exam: Decreased Bases Cardiology CV Exam: Tachycardia Gastrointestinal/Abdomen GI Exam: Soft, Distended Extremeties Extremities Exam: Moderate Edema, Pitting Edema Neurologic Neuro Exam: Alert, Awake Assessment/Plan Problem List: (1) Acute renal failure Plan: patient is on HD , To be on T,T,S shift K/PO4 replaced continue supportive care for now (2) Anasarca Plan: improving with hemodialysis (3) Pancreatitis, acute Plan: She will be observed (4) Severe sepsis with acute organ dysfunction Plan: ID is following on Meropenem, and micafungin (5) Cholangitis Plan: As above Problem Qualifiers (1) Acute renal failure: Qualified Code: N17.0 - Acute renal failure with tubular necrosis (2) Pancreatitis, acute: Estela Lares MD Mar 17, 2016 12:53
--- NOTE | 2016-03-17 15:08 | HHI.GIFU ---
Subjective Remarks Resting in bed. No distress. Nurse reports that TF was started this morning and that she is tolerating this so far. 700cc liquid stool from rectal tube. Pt is quite lethargic, but she denies nausea, vomiting, abdominal pain. (Nakita Crowe) Objective Vitals I&O Vital Signs Date Time Temp Pulse Resp B/P Pulse Ox O2 Delivery O2 Flow Rate FiO2 03/17/16 12:00 84 03/17/16 12:00 99.7 84 24 145/67 100 03/17/16 10:00 84 03/17/16 09:43 94 Nasal Cannula 2.00 03/17/16 08:00 98.6 97 25 152/64 97 03/17/16 08:00 82 03/17/16 07:00 98 Nasal Cannula 3.00 03/17/16 06:00 84 03/17/16 04:00 101 03/17/16 04:00 97.6 101 30 138/65 96 03/17/16 02:00 93 03/17/16 00:00 101 03/17/16 00:00 97.5 100 22 105/52 96 03/16/16 22:00 101 03/16/16 20:55 95 Nasal Cannula 2.00 03/16/16 20:00 101 03/16/16 20:00 97.3 102 32 132/61 95 03/16/16 19:00 95 Nasal Cannula 3.00 03/16/16 18:00 96 03/16/16 16:00 104 03/16/16 16:00 99.9 104 26 130/60 95 I/O 03/16/16 03/16/16 03/16/16 03/17/16 03/17/16 03/17/16 07:00 15:00 23:00 07:00 15:00 23:00 Intake Total 1043 ml 1341 ml 1370 ml 953 ml Output Total 225 ml 2425 ml 275 ml 700 ml Balance 818 ml -1084 ml 1095 ml 253 ml IV Total 548 ml 597 ml 648 ml 416 ml TPN/PPN 495 ml 604 ml 662 ml 537 ml Tube Irrigant 100 ml 30 ml Other 40 ml 30 ml Output Urine Total 225 ml 425 ml 275 ml 150 ml Stool Total 550 ml Gastric Drainage Total 0 ml Hemodialysis 2000 ml # Bowel Movements 2 Laboratory Laboratory Tests Test 03/16/16 03/17/16 16:22 04:05 Potassium Level 3.4 3.4 White Blood Count 17.5 Red Blood Count 2.93 Hemoglobin 8.1 Hematocrit 25.4 Mean Corpuscular Volume 86.6 Mean Corpuscular Hemoglobin 27.7 Mean Corpuscular Hemoglobin 32.0 Concent Red Cell Distribution Width 15.2 Platelet Count 388 Mean Platelet Volume 8.9 Neutrophils (%) (Auto) 82.2 Lymphocytes (%) (Auto) 5.3 Monocytes (%) (Auto) 11.0 Eosinophils (%) (Auto) 1.2 Basophils (%) (Auto) 0.3 Neutrophils # (Auto) 14.3 Lymphocytes # (Auto) 0.9 Monocytes # (Auto) 1.9 Eosinophils # (Auto) 0.2 Basophils # (Auto) 0.1 CBC Comment AUTO DIFF Differential Total Cells 100 Counted Neutrophils % (Manual) 76 Band Neutrophils % 6 Lymphocytes % 6 Monocytes % 7 Neutrophils # (Manual) 15.2 Metamyelocytes 1 Myelocytes 4 Nucleated Red Blood Cells 1 Differential Comment FINAL DIFF MANUAL Platelet Estimate NORMAL Platelet Morphology Comment NORMAL Acanthocytes OCC Keratocytes OCC Sodium Level 146 Chloride Level 109 Carbon Dioxide Level 29.5 Anion Gap 8 Blood Urea Nitrogen 61 Creatinine 1.97 Estimat Glomerular Filtration 31 Rate Random Glucose 217 Lactic Acid Level 1.3 Calcium Level 10.2 Phosphorus Level 2.1 Magnesium Level 2.1 Total Bilirubin 0.5 Aspartate Amino Transf 27 (AST/SGOT) Alanine Aminotransferase 20 (ALT/SGPT) Alkaline Phosphatase 100 Total Creatine Kinase 24 Total Protein 7.0 Albumin 2.3 Date/Time Procedure Status Source Growth 03/15/16 09:30 Urine Culture - Final Complete Urine Clean Catch NO GROWTH IN 48 HOURS. 03/13/16 11:25 Aerobic Blood Culture - Preliminary Resulted Blood Other NO GROWTH IN 4 DAYS 03/13/16 11:25 Anaerobic Blood Culture - Final Resulted Blood Other QNS - SEE AEROBE REPORT Imaging Last Impressions Abdomen X-Ray 03/17/16 0600 Signed Impressions: Service Date/Time: Thursday, March 17, 2016 05:14 - CONCLUSION: Mild distention of bowel loop in the right abdomen is likely related to mild gaseous distention of the cecum/ascending colon. There is left distention on current study. Wilian Rojas MD Abdomen/Pelvis CT 03/15/16 0000 Signed Impressions: Service Date/Time: Tuesday, March 15, 2016 15:26 - CONCLUSION: 1. Compared to the prior exam, the previously noted gas bubbles in the wall of the cecum have resolved. 2. Otherwise, no other new or significant changes compared to the prior study. Wilver Bond MD Chest X-Ray 03/14/16 1159 Signed Impressions: Service Date/Time: Monday, March 14, 2016 12:22 - CONCLUSION: 1. Right-sided central line in place. 2. No pneumothorax. Wilver Bond MD Head CT 03/14/16 0000 Signed Impressions: Service Date/Time: Monday, March 14, 2016 16:13 - CONCLUSION: Normal examination. Jere Toro MD Renal Ultrasound 03/13/16 0000 Signed Impressions: Service Date/Time: Sunday, March 13, 2016 16:39 - CONCLUSION: Unremarkable renal ultrasound. KSamuel Lundy MD GI Procedure 03/05/16 0000 Signed Impressions: Service Date/Time: Friday, March 04, 2016 23:02 - CONCLUSION: ERCP as above. Vidal Ye MD Gall Bladder Ultrasound 03/04/16 0000 Signed Impressions: Service Date/Time: Friday, March 04, 2016 19:36 - CONCLUSION: 1. Thick-walled gallbladder with some pericholecystic fluid and multiple gallstones in the region of the neck. The findings are suggestive of acute cholecystitis. Clinical correlation is recommended. 2. Fatty liver. 3. Minimal ascites within Polanco's pouch. 4. Poor visualization of the pancreas due to shadowing bowel gas. Odilon Butler MD Cholangiopancreatography MRI 03/04/16 0000 Signed Impressions: Service Date/Time: Friday, March 04, 2016 18:24 - CONCLUSION: 1. Extensive edema throughout the retroperitoneum and pancreas. No abscess or pseudocyst. 2. Tiny layering gallstones within the gallbladder. No discrete common bile duct stone. There is tapering of the common bile duct within the pancreatic head felt to be secondary to the edema within the pancreas. No discrete mass or choledocholithiasis. No intrahepatic or extrahepatic ductal dilatation. Maxwell Hsu Jr., MD Physical Exam NECK: Neck is supple, no JVD, no lymphadenopathy. CHEST: Resp. shallow, mildly tachypneic. CARDIAC: RRR ABDOMEN: Soft, distended, hypoactive bowel sounds. Rectal tube with liquid stool- 700cc this shift so far EXTREMITIES: Generalized edema. SKIN: Lethargic. (Nakita Crowe) Assessment and Plan Plan ASSESSMENT: - Severe diffuse ileus. Abdomen/Pelvis CT (03/15/16)-----> 1. Compared to the prior exam, the previously noted gas bubbles in the wall of the cecum have resolved. 2. Otherwise, no other new or significant changes compared to the prior study. S/P Relistor (03/16), colace, miralax, lactulose, senokot, reglan with good results. Abdomen X-Ray (03/17/16)----> Mild distention of bowel loop in the right abdomen is likely related to mild gaseous distention of the cecum/ascending colon. There is left distention on current study. Rectal tube to LIWS- 700cc on this shift. Abdomen distended, but soft. Trickle feeds were started via dobhoff and so far she is tolerating this. - Severe acute gallstone pancreatitis. S/P ERCP (03/04/16)-----> stricture in the distal common bile duct, normal intrahepatic ducts, normal pancreatic ducts , patent cystic duct. S/P stent placement. Dobhoff, but clamped. Triglycerides 117. IgG [address] scan 03/15 with diffuse inflammatory changes surrounding the entire pancreas characteristic of pancreatitis. No new or significant changes are demonstrated compared to the prior study. TPN. IVF. Started on trickle feeds , so far tolerating. If worsening leukocytosis, plan is to rescan and take fluid sample to see if this is infected. If so, she will need to be transferred to tertiary for possible debridement. At this time, Her WBC is slowly improving. - Biliary obstruction/cholangitis secondary to pancreatic head edema. S/P ERCP (03/04/16)-----> stricture in the distal common bile duct, normal intrahepatic ducts, normal pancreatic ducts, patent cystic duct. S/P stent placement. Abx per ID. - Acute cholecystitis. GS following. - Acute sepsis, Leukocytosis. Abx per ID. - Acute renal failure. HD per renal. - Resp. Insuff. Resp. shallow/tachypneic. Diminished breath sounds. - Anemia. H/H 8.1/25.4 - Elevated Glucose, insulin gtt per primary Recommendations - Trickle feeds at 20cc/hr - Cont. TPN - Cont. Reglan - Cont. Miralax, Lactulose, Senokot - Rectal tube to LIWS - Abx per ID - S/P Relistor (03/16/16) - KUB in am - GS following - CCM following - Supportive care - Further recommendations to follow - Patient seen and examined by Dr. Stroud and myself and this note is written on his behalf. (Nakita Crowe) Physician Comments Seen and examined, plan as above, further recommendations to follow. (Dottie Stroud MD) Nakita Crowe Mar 17, 2016 15:08 Dottie Stroud MD Mar 17, 2016 15:41
[2016-03-17] MEDS: hydrALAZINE HCL 20 MG/ML VIAL IV PUSH PRN ×2 (18:41→21:14)
[2016-03-17] MEDS: CLINIMIX 4.25/25 (Cust.Renal Central) 2000 mL- >42 mls/hr IV-CENTRAL SCH ×8 (19:57)
--- NOTE | 2016-03-17 21:00 | HHI.IDPN ---
Subjective Subjective Remarks ID Xcover for Dr Ayers chart reviewed is a 66-year-old woman who was admitted to the hospital with nausea and vomiting with severe abdominal pain and no po intake on admission.She also reports diarrhea prior to arrival. Patient reported chills on admission. No prior h/o gallstones or pancreatic issues. Being treated acute pancreatitis and acute cholangitis. Dw RN at b/s Overnight events reviewed No fevers UO low. + liquid stool, diarrhea 700cc Antibiotics Meropenem IV Micafungin IV Lines Line sites with no e/o infection Past Medical History reviewed. Allergies: Coded Allergies: No Known Allergies (Verified , 02/18/15) Objective . Vital Signs Date Time Temp Pulse Resp B/P Pulse Ox O2 Delivery O2 Flow Rate FiO2 03/17/16 19:00 97 Nasal Cannula 3.00 03/17/16 18:00 106 03/17/16 16:00 91 03/17/16 16:00 99.4 91 23 141/65 97 03/17/16 14:00 79 03/17/16 12:00 84 03/17/16 12:00 99.7 84 24 145/67 100 03/17/16 10:00 84 03/17/16 09:43 94 Nasal Cannula 2.00 03/17/16 08:00 98.6 97 25 152/64 97 03/17/16 08:00 82 03/17/16 07:00 98 Nasal Cannula 3.00 03/17/16 06:00 84 03/17/16 04:00 101 03/17/16 04:00 97.6 101 30 138/65 96 03/17/16 02:00 93 03/17/16 00:00 101 03/17/16 00:00 97.5 100 22 105/52 96 03/16/16 22:00 101 03/16/16 20:55 95 Nasal Cannula 2.00 03/16/16 03/16/16 03/17/16 14:59 22:59 06:59 Intake Total 1341 ml 1370 ml 953 ml Output Total 2425 ml 275 ml 700 ml Balance -1084 ml 1095 ml 253 ml IV Total 597 ml 648 ml 416 ml TPN/PPN 604 ml 662 ml 537 ml Tube Irrigant 100 ml 30 ml Other 40 ml 30 ml Output Urine Total 425 ml 275 ml 150 ml Stool Total 550 ml Gastric Drainage Total 0 ml Hemodialysis 2000 ml # Bowel Movements 2 . Laboratory Tests Test 03/16/16 03/17/16 04:15 04:05 White Blood Count 17.9 TH/MM3 17.5 TH/MM3 Red Blood Count 3.10 MIL/MM3 2.93 MIL/MM3 Hemoglobin 8.7 GM/DL 8.1 GM/DL Hematocrit 27.8 % 25.4 % Mean Corpuscular Volume 89.6 FL 86.6 FL Mean Corpuscular Hemoglobin 28.2 PG 27.7 PG Mean Corpuscular Hemoglobin 31.5 % 32.0 % Concent Red Cell Distribution Width 15.5 % 15.2 % Platelet Count 424 TH/MM3 388 TH/MM3 Mean Platelet Volume 9.4 FL 8.9 FL Neutrophils (%) (Auto) 87.6 % 82.2 % Lymphocytes (%) (Auto) 2.6 % 5.3 % Monocytes (%) (Auto) 8.7 % 11.0 % Eosinophils (%) (Auto) 0.7 % 1.2 % Basophils (%) (Auto) 0.4 % 0.3 % Neutrophils # (Auto) 15.7 TH/MM3 14.3 TH/MM3 Lymphocytes # (Auto) 0.5 TH/MM3 0.9 TH/MM3 Monocytes # (Auto) 1.6 TH/MM3 1.9 TH/MM3 Eosinophils # (Auto) 0.1 TH/MM3 0.2 TH/MM3 Basophils # (Auto) 0.1 TH/MM3 0.1 TH/MM3 CBC Comment AUTO DIFF AUTO DIFF Differential Total Cells 100 100 Counted Neutrophils % (Manual) 78 % 76 % Band Neutrophils % 3 % 6 % Lymphocytes % 4 % 6 % Monocytes % 4 % 7 % Basophils % 3 % Neutrophils # (Manual) 15.9 TH/MM3 15.2 TH/MM3 Metamyelocytes 3 % 1 % Myelocytes 5 % 4 % Differential Comment FINAL DIFF FINAL DIFF MANUAL MANUAL Platelet Estimate HIGH NORMAL Platelet Morphology Comment NORMAL NORMAL Keratocytes OCC OCC Nucleated Red Blood Cells 1 /100 WBC Acanthocytes OCC Laboratory Tests Test 03/16/16 03/16/16 03/17/16 04:15 16:22 04:05 Sodium Level 140 MEQ/L 146 MEQ/L Potassium Level 3.6 MEQ/L 3.4 MEQ/L 3.4 MEQ/L Chloride Level 103 MEQ/L 109 MEQ/L Carbon Dioxide Level 24.7 MEQ/L 29.5 MEQ/L Anion Gap 12 MEQ/L 8 MEQ/L Blood Urea Nitrogen 63 MG/DL 61 MG/DL Creatinine 2.30 MG/DL 1.97 MG/DL Estimat Glomerular Filtration 26 ML/MIN 31 ML/MIN Rate Random Glucose 546 MG/DL 217 MG/DL Lactic Acid Level 1.2 mmol/L 1.3 mmol/L Calcium Level 9.7 MG/DL 10.2 MG/DL Phosphorus Level 3.7 MG/DL 2.1 MG/DL Magnesium Level 2.2 MG/DL 2.1 MG/DL Total Bilirubin 0.8 MG/DL 0.5 MG/DL Aspartate Amino Transf 30 U/L 27 U/L (AST/SGOT) Alanine Aminotransferase 23 U/L 20 U/L (ALT/SGPT) Alkaline Phosphatase 99 U/L 100 U/L Total Protein 6.9 GM/DL 7.0 GM/DL Albumin 2.5 GM/DL 2.3 GM/DL Amylase Level 42 U/L Lipase 263 U/L Total Creatine Kinase 24 U/L Microbiology Date/Time Procedure Status Source Growth 03/15/16 09:30 Urine Culture - Final Complete Urine Clean Catch NO GROWTH IN 48 HOURS. Imaging Last Impressions Abdomen X-Ray 03/17/16 0600 Signed Impressions: Service Date/Time: Thursday, March 17, 2016 05:14 - CONCLUSION: Mild distention of bowel loop in the right abdomen is likely related to mild gaseous distention of the cecum/ascending colon. There is left distention on current study. Wilian Rojas MD Abdomen/Pelvis CT 03/15/16 0000 Signed Impressions: Service Date/Time: Tuesday, March 15, 2016 15:26 - CONCLUSION: 1. Compared to the prior exam, the previously noted gas bubbles in the wall of the cecum have resolved. 2. Otherwise, no other new or significant changes compared to the prior study. Wilver Bond MD Chest X-Ray 03/14/16 1159 Signed Impressions: Service Date/Time: Monday, March 14, 2016 12:22 - CONCLUSION: 1. Right-sided central line in place. 2. No pneumothorax. Wilver Bond MD Head CT 03/14/16 0000 Signed Impressions: Service Date/Time: Monday, March 14, 2016 16:13 - CONCLUSION: Normal examination. Jere Toro MD Renal Ultrasound 03/13/16 0000 Signed Impressions: Service Date/Time: Sunday, March 13, 2016 16:39 - CONCLUSION: Unremarkable renal ultrasound. Abisai Lundy MD GI Procedure 03/05/16 0000 Signed Impressions: Service Date/Time: Friday, March 04, 2016 23:02 - CONCLUSION: ERCP as above. Vidal Ye MD Gall Bladder Ultrasound 03/04/16 0000 Signed Impressions: Service Date/Time: Friday, March 04, 2016 19:36 - CONCLUSION: 1. Thick-walled gallbladder with some pericholecystic fluid and multiple gallstones in the region of the neck. The findings are suggestive of acute cholecystitis. Clinical correlation is recommended. 2. Fatty liver. 3. Minimal ascites within Polanco's pouch. 4. Poor visualization of the pancreas due to shadowing bowel gas. Odilon Butler MD Cholangiopancreatography MRI 03/04/16 0000 Signed Impressions: Service Date/Time: Friday, March 04, 2016 18:24 - CONCLUSION: 1. Extensive edema throughout the retroperitoneum and pancreas. No abscess or pseudocyst. 2. Tiny layering gallstones within the gallbladder. No discrete common bile duct stone. There is tapering of the common bile duct within the pancreatic head felt to be secondary to the edema within the pancreas. No discrete mass or choledocholithiasis. No intrahepatic or extrahepatic ductal dilatation. Maxwell Hsu Jr., MD Physical Exam GENERAL: Obese AAF patient, in mild resp distress. SKIN: No rashes, ecchymoses or lesions. Cool and dry. HEAD: Atraumatic. Normocephalic. No temporal or scalp tenderness. EYES: Pupils equal round and reactive. Extraocular motions intact. No scleral icterus. No injection or drainage. ENT: Nose without bleeding, purulent drainage or septal hematoma. Throat without erythema, tonsillar hypertrophy or exudate. Uvula midline. Airway patent. NECK: Trachea midline. Supple, nontender, no meningeal signs. CARDIOVASCULAR: HS audible. No murmur. Well perfused extremeties RESPIRATORY: Clear to auscultation. Breath sounds equal bilaterally but decreased in the bases. GASTROINTESTINAL: Abdomen tense , tenderness in RUQ and epigastric region, distended, abd wall edema noted. BS hyperactive MUSCULOSKELETAL: Generalized anasarca noted. NEUROLOGICAL: Awake and alert. Grossly non focal Psych: cooperative IV line sites with no e/o infection. Assessment & Plan Remarks SIRS possible Sepsis Acute Severe Pancreatitis with hemorrhage. Acute Pneumatosis Intestinalis (vs anasarca related bowel edema, cdiff) - repeat CT showed resolution of gas bubbles Acute cholangitis Clinicaly appears to be more stable with a trend to improvement Recs: Continue Meropenem IV Continue Micafungin IV D/w RN Follow cultures Follow clinically. Sanjana Flores MD Mar 17, 2016 20:59
[2016-03-17] MEDS: MORPHINE SULFATE 4 MG/ML INJ IV PUSH PRN (22:20)
[2016-03-18] VITALS (14 sets, daily range): BP systolic 143–167; BP diastolic 6–76; PULSE 84–122; RESP 22–26; TEMP 99.2–100.1; O2SAT 95–99
[2016-03-18] MEDS: METOPROLOL TARTRATE 5 MG/5 ML VIAL IV PUSH SCH ×6 (00:27→20:56)
[2016-03-18] MEDS: MEROPENEM INJ 1,000 MG in SODIUM CHLORIDE 0.9% INJ 100 ML IV SCH ×2 (00:27→11:41)
[2016-03-18] MEDS: NITROGLYCERIN 2% OINT 1 GM PACKET TOPICAL SCH ×4 (00:27→17:44)
[2016-03-18] MEDS: CHLORHEXIDINE GLUCONATE 2 % 1 PACK (2 CLOTHS) TOP SCH (04:00)
[2016-03-18] MEDS: hydrALAZINE HCL 20 MG/ML VIAL IV PUSH PRN ×2 (04:14→06:14)
[2016-03-18 04:22] LABS: HEMATOCRIT 25.5 % (35.0-46.0); MEAN CELL VOLUME 87.2 FL (80.0-100.0); MEAN CORPUSCULAR HEMOGLOBIN 28.3 PG (27.0-34.0); MEAN CORPUSCULAR HGB CONC 32.4 % (32.0-36.0); PLATELET COUNT 372 TH/MM3 (150-450); RED BLOOD COUNT 2.92 MIL/MM3 (4.00-5.30); RED CELL DISTRIBUTION WIDTH 15.5 % (11.6-17.2); WHITE BLOOD COUNT 13.5 TH/MM3 (4.0-11.0)
[2016-03-18 04:32] LABS: HEMO FLAGS AUTO DIFF
[2016-03-18 04:45] LABS: ALKALINE PHOSPHATASE 107 U/L (45-117); ALT (GPT) 25 U/L (10-53); ANION GAP 8 MEQ/L (5-15); AST (GOT) 56 U/L (15-37); BICARBONATE 30.3 MEQ/L (21.0-32.0); BLOOD UREA NITROGEN 62 MG/DL (7-18); CHLORIDE 111 MEQ/L (98-107); GLOMERULAR FILTRATION RATE 48 ML/MIN (>89); MAGNESIUM 2.1 MG/DL (1.5-2.5); POTASSIUM 3.4 MEQ/L (3.5-5.1); SODIUM (NA) 149 MEQ/L (136-145); TOTAL BILIRUBIN ADULT 0.4 MG/DL (0.2-1.0)
[2016-03-18 05:14] LABS: BANDS 19 % (0-6); BASOPHILS 1 % (0-2); CORRECTED NUCLEATED RBC 1 /100 WBC (0-0); EOSINOPHILS 4 % (0-4); METAMYELOCYTES 2 % (0-1); NEUTROPHIL # MANUAL DIFF 11.5 TH/MM3 (1.8-7.7); POLYS (SEG NEUTROPHILS) 63 % (16-70); PROMYELOCYTES 1 % (0-0); WBC DIFF SAMPLE 100
[2016-03-18 05:15] LABS: PLATELET ESTIMATE SMEAR NORMAL (NORMAL); PLATELET MORPHOLOGY NORMAL (NORMAL); SCAN/DIFF FINAL DIFF MANUAL
[2016-03-18 05:18] LABS: KERATOCYTES OCC (NORMAL)
[2016-03-18] MEDS: METOCLOPRAMIDE HCL 10 MG/2 ML VIAL IV PUSH SCH ×3 (05:40→20:58)
[2016-03-18] MEDS: ACETAMINOPHEN/HYDROcodone 325 MG/5 MG TAB PO PRN ×2 (05:55→14:48)
--- NOTE | 2016-03-18 06:05 | RADRPT ---
EXAM DATE/TIME: 03/18/2016 04:13 [place] COMPARISON: ABDOMEN KUB ONLY, March 17, 2016, 5:14. INDICATIONS : Please evaluate for ileus. MEDICAL HISTORY : Hypertension. Carcinoma, breast. Renal failure, chronic. SURGICAL HISTORY : Mastectomy, right. Hysterectomy. ENCOUNTER: Subsequent ACUITY: 1week PAIN SCORE: Non-responsive. LOCATION: Bilateral abdomen FINDINGS: Supine view of the abdomen was performed. Gaseous distention of multiple bowel loops appear unchange d. Rectal tube noted. The Dobbhoff tube with tip in the second/third portion of the duodenum. Biliary stent unchanged. The osseous structures are unremarkable. CONCLUSION: Gaseous distention of multiple bowel loops unchanged. Wilian Rojas MD on March 18, 2016 at 6:03 Board Certified Radiologist. This report was verified electronically.
[2016-03-18] MEDS: SODIUM CHLORIDE 0.9% FLUSH 5 ML FLUSH IV FLUSH SCH ×2 (07:52→20:57)
[2016-03-18] MEDS: SODIUM CHLORIDE 0.9% FLUSH 5 ML FLUSH IVF SCH (07:52)
[2016-03-18] MEDS ORDERED: POTASSIUM CHLOR 20 MEQ PREMIX 100 ML IV ONE (08:45)
--- NOTE | 2016-03-18 08:46 | HHI.CCPN ---
Subjective Remarks/Hospital Course > 48 hour history of epigastric pain, vomiting. GB US reveals cholecystitis with stones in neck. MRCP - pancreatitis, ducts not dilated. Received stent into a bile duct secondary to stricture due to pancreatic head edema. [facility] re -consulted today 03/12 due to patient's tachypnea and abdominal distention. 03/13 - Patient appears significantly more acutely ill since I last saw her . Answers questions in 1-2 word responses. Resting in bed with quite distant added. Diffuse in all 4 quadrants abdominal stated to be Pain 10 out of 10. Tube feeds on hold. Decreased urine output noted. 03/14: Tmax 100. Currently 98.9. Status post -4 L hemodialysis yesterday. Breathing appears intermittently tachypneic and labored however she is more alert today and able to verbally complete sentences today. No bowel movement yesterday. Tube feeds currently off. 03/15: Tmax 102. Currently 100.5. Status post -3.5 L hemodialysis today. More lethargic. TPN to be initiated today. 03/16: Afebrile overnight. Started on TPN with elevated blood sugars. Currently on insulin drip. 2 large bowel movements yesterday. She is making adequate urine output. Pain better controlled today. White cell count has decreased slowly. Clinically appears better. 03/17: Afebrile. Blood sugars are stabilized. White cell count is stabilized. Positive BM yesterday. Abdomen less distended but abdominal pressure still in the low 20s. Arousable and follows commands. Subjective 03/18: Tmax 100.1. 2 BMs yesterday. Currently resting in bed. Abdominal pressures 17-19 overnight. Arousable and will follow commands. Objective Vital Signs Date Time Temp Pulse Resp B/P Pulse Ox O2 Delivery O2 Flow Rate FiO2 03/18/16 08:18 95 Nasal Cannula 3.00 03/18/16 06:00 102 03/18/16 04:00 100.1 26 167/70 Intake and Output 03/17/16 03/17/16 03/18/16 08:00 16:00 00:00 Intake Total 953 ml 1169 ml 1204 ml Output Total 700 ml 1100 ml 725 ml Balance 253 ml 69 ml 479 ml Result Diagram: 03/18/16 0400 03/18/16 0400 Other Results Microbiology Date/Time Procedure Status Source Growth 03/15/16 09:30 Urine Culture - Final Complete Urine Clean Catch NO GROWTH IN 48 HOURS. 03/13/16 11:25 Aerobic Blood Culture - Preliminary Resulted Blood Other NO GROWTH IN 4 DAYS 03/13/16 11:25 Anaerobic Blood Culture - Final Resulted Blood Other QNS - SEE AEROBE REPORT Imaging Last Impressions Abdomen X-Ray 03/17/16 0600 Signed Impressions: Service Date/Time: Thursday, March 17, 2016 05:14 - CONCLUSION: Mild distention of bowel loop in the right abdomen is likely related to mild gaseous distention of the cecum/ascending colon. There is left distention on current study. Wilian Rojas MD Abdomen/Pelvis CT 03/15/16 0000 Signed Impressions: Service Date/Time: Tuesday, March 15, 2016 15:26 - CONCLUSION: 1. Compared to the prior exam, the previously noted gas bubbles in the wall of the cecum have resolved. 2. Otherwise, no other new or significant changes compared to the prior study. Wilver Bond MD Chest X-Ray 03/14/16 1159 Signed Impressions: Service Date/Time: Monday, March 14, 2016 12:22 - CONCLUSION: 1. Right-sided central line in place. 2. No pneumothorax. Wilver Bond MD Head CT 03/14/16 0000 Signed Impressions: Service Date/Time: Monday, March 14, 2016 16:13 - CONCLUSION: Normal examination. Jere Toro MD Renal Ultrasound 03/13/16 0000 Signed Impressions: Service Date/Time: Sunday, March 13, 2016 16:39 - CONCLUSION: Unremarkable renal ultrasound. K. Stephen Lundy MD GI Procedure 03/05/16 0000 Signed Impressions: Service Date/Time: Friday, March 04, 2016 23:02 - CONCLUSION: ERCP as above. Vidal Ye MD Gall Bladder Ultrasound 03/04/16 0000 Signed Impressions: Service Date/Time: Friday, March 04, 2016 19:36 - CONCLUSION: 1. Thick-walled gallbladder with some pericholecystic fluid and multiple gallstones in the region of the neck. The findings are suggestive of acute cholecystitis. Clinical correlation is recommended. 2. Fatty liver. 3. Minimal ascites within Polanco's pouch. 4. Poor visualization of the pancreas due to shadowing bowel gas. Odilon Butler MD Cholangiopancreatography MRI 03/04/16 0000 Signed Impressions: Service Date/Time: Friday, March 04, 2016 18:24 - CONCLUSION: 1. Extensive edema throughout the retroperitoneum and pancreas. No abscess or pseudocyst. 2. Tiny layering gallstones within the gallbladder. No discrete common bile duct stone. There is tapering of the common bile duct within the pancreatic head felt to be secondary to the edema within the pancreas. No discrete mass or choledocholithiasis. No intrahepatic or extrahepatic ductal dilatation. Maxwell Hsu Jr., MD Objective Remarks GENERAL: 66-year-old AA female, morbidly obese, critically ill appearing, currently resting in bed in mild respiratory distress SKIN: Warm and dry. No rash HEAD: Atraumatic. Normocephalic. EYES: Pupils equal and round around 3 mm bilaterally and reactive. No scleral icterus. No injection or drainage. ENT: No nasal bleeding or discharge. Mucous membranes pink and moist. Cliff fed tube in right nares NECK: Trachea midline. No JVD. Left hemodialysis catheter clean dry and intact. Right IJ CVL clean dry and intact CARDIOVASCULAR: Regular rate and rhythm. S1, S2. No S4. Without murmur RESPIRATORY: Distant breath sounds. Symmetrical excursion. Shallow respirations. GASTROINTESTINAL: Abdomen obese. Tender to palpation in all quadrants with no rebound. Voluntary guarding. No rigidity. Hypoactive bowel sounds MUSCULOSKELETAL: Extremities with 1+ lower extremity pedal edema/anasarca-like improved from yesterday. No obvious deformities. NEUROLOGICAL: Awake and alert to person only. No obvious cranial nerve deficits. Motor grossly within normal limits. Five out of 5 muscle strength in the arms and legs. Able to answer 1 or 2 words to questions PSYCHIATRIC: Depressed mood and affect. Date of Insertion: Mar 14, 2016 Line: Central Venous Catheter Side: Right Location: Internal, Jugular A/P Problem List: (1) Severe sepsis with acute organ dysfunction ICD Code: A41.9 Status: Acute (2) Cholangitis ICD Code: K83.0 Status: Acute (3) Hypertensive urgency ICD Code: I16.0 Status: Acute Assessment and Plan Neuro/Psych: Pain management for acute pancreatitis Acetaminophen for fever [place] 5/325 one every 4 hours/ morphine 2 mg every 3 hours hours when necessary for pain management CV: Severe sepsis from cholangitis and pancreatitis Hypertension by history Dyslipidemia Lactic acidosis - resolved - appears fluid overloaded, +18 kg since admission. -13.5 L past 4 dialysis sessions. Sunday/ and Sunday schedule - repeat Lactate 03/18 6 AM normal at 1.2 - Holding home medications lisinopril/HCTZ in light of acute kidney injury. - Noted elevated HDL/LDL/total cholesterol - triglycerides within normal limits Consider statin when appropriate once LFTs normalize - As needed labetalol, hydralazine, Nitropaste for blood pressure control of present - Previously on metoprolol 50 mg twice a day with some SVT during this hospitalization. We'll switch to IV Lopressor 5 milligrams every 4 hours with scheduled Nitropaste 2 inches every 6 hours while nothing by mouth - 2-D echo EF 55 - 60%. Trace ANNIE 39 mmHg Resp: Acute respiratory insufficiency likely secondary to volume overload - Nasal cannula to maintain saturations greater than equal to 92% - Incentive spirometry while awake - Chest x-ray 03/13 after line placement reveals possible right lower lobe effusion/atelectasis GI: Status post ERCP/placement of stenting, bile duct secondary to stenosis Acute necrotizing Pancreatitis Possible pneumatosis intestinalis Transaminitis Hypo-albuminemia CT abdomen/pelvis 03/12 revealed multiple gallstones/worsening pancreatitis and possible pneumatosis intestinalis involving the cecum and the ascending colon Dr. Ceballos/general surgery following Discussed with Dr. Moulton yesterday. Agreed with hemodialysis and attempt to remove extra cellular fluid while maintaining intravascular volume. Difficult situation -24 intra-abdominal bladder pressures - Dr. Lucero/GI performed ERCP 03/04 with stent placement, distal common bile duct 8.5 Bengali 7 cm secondary to stricture - Ultrasound revealed thickening in the gallbladder with pericholecystic fluid. Tiny gallstones noted. - MRCP revealed retroperitoneal edema, with edema causing potentially narrowing of the distal common bile duct Plan on repeating CT abdomen and pelvis 03/15 with oral contrast Test complete. Awaiting results. 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 pupil personnel worker sent appropriate paperwork to review. I called transfer center. If unavailable will contact [facility] for another option. Discussed with surgery 03/18. Currently with watchful waiting. He will contact specialist pancreatic surgeons at [facility] and [facility] to see if transfer appropriate at this time. Continue with rectal tube to LIWS Adjusting TPN see orders. Tube feeds with Nepro at 20 cc an hour per general surgery : Azul if needed for accurate I's and O's in critically ill patient Endo: Hyperglycemia of critical illness Algorithm 4 Levemir 60 units twice a day Continue TPN initiated Renal: LOI - fluid overload. +16 kg since admission - Creatinine appears to be stabilizing - Avoid nephrotoxic drugs. Noted lisinopril/hctz held - Nephrology consultation. -12 L past 4 days -Negative urine eosinophils renal ultrasound - Follow BMP in a.m. Heme/Onc: History of breast cancer status post right mastectomy Leukocytosis Normocytic anemia CBC/coags ordered this a.m. Currently holding Letrozole 2.5 mg daily with elevated LFTs. Resume when clinically indicated ID: Possible necrotizing pancreatitis/pneumatosis intestinalis Day #6 micafungin/Merrem ID consult appreciated Pertinent cultures 03/04 - urine culture - negative 03/04 - blood cultures 2 - negative 03/07 - blood cultures 2 - negative 03/13 - blood cultures 2 -no growth 03/15 - urine culture -no growth FEN: Hypokalemia Hypophosphatemia Replace electrolytes as clinically indicated Currently on Nepro at 20 cc an hour general surgery TPN renal mix to be adjusted see orders 30 mmol K-Phos IV 1. Recheck in a.m. MSK: Out of bed/PT evaluate and treat Access -Right IJ CVL day 5 placed 03/14 - Left IJ hemodialysis catheter placed 03/13 Prophylaxis - GI - Protonix - DVT - SCD/heparin Critical Care: The total critical care time was 35 minutes. Time to perform other separately billable procedures was not included in the critical care time. Discuss with daughter at bedside.. Care plan discussed. All questions answered. Rosalio Bowie MD Mar 18, 2016 08:46
[2016-03-18] MEDS: POLYETHYLENE GLYCOL 17 GM PKG PO SCH ×2 (08:57→20:57)
[2016-03-18] MEDS: LACTULOSE SYRUP 20 GM/30 ML CUP PO SCH ×4 (08:58→20:57)
[2016-03-18] MEDS: SENNOSIDES 8.6 MG TAB PO SCH ×2 (08:58→20:58)
[2016-03-18] MEDS: DOCUSATE SODIUM 100 MG CAP PO SCH ×2 (09:00→20:57)
[2016-03-18] MEDS: INSULIN DETEMIR 100 UNITS/ML VIAL SQ SCH ×2 (09:00→20:58)
[2016-03-18] MEDS: HEPARIN SODIUM - SQ 10,000 UNITS/ML VIAL SQ SCH ×2 (09:01→20:58)
[2016-03-18] MEDS: PANTOPRAZOLE SODIUM 40 MG VIAL IV SCH (09:02)
[2016-03-18] MEDS: INSULIN REGULAR (IV INFUSION) 100 UNITS in SODIUM CHLORIDE 0.9% INJ 99 ML IV SCH ×2 (09:30→21:20)
[2016-03-18] MEDS ORDERED: POTASSIUM PHOSPHATE INJ 30 MMOL in SODIUM CHLOR 0.9% 250 ML INJ 250 ML IV ONE (10:00)
[2016-03-18] MEDS: MICAFUNGIN INJ 150 MG in SODIUM CHLORIDE 0.9% INJ 100 ML IV SCH (11:37)
--- NOTE | 2016-03-18 13:01 | HHI.PR ---
Subjective Subjective Notes Breathing fairly well. Minimally arousable. Denies pain today. Objective Vitals/I&O Vital Signs Date Time Temp Pulse Resp B/P Pulse Ox O2 Delivery O2 Flow Rate FiO2 03/18/16 10:00 104 03/18/16 08:18 95 Nasal Cannula 3.00 03/18/16 08:00 99.9 25 162/60 Labs Laboratory Tests Test 03/18/16 04:00 White Blood Count 13.5 Red Blood Count 2.92 Hemoglobin 8.3 Hematocrit 25.5 Mean Corpuscular Volume 87.2 Mean Corpuscular Hemoglobin 28.3 Mean Corpuscular Hemoglobin 32.4 Concent Red Cell Distribution Width 15.5 Platelet Count 372 Mean Platelet Volume 8.8 Neutrophils (%) (Auto) Lymphocytes (%) (Auto) Monocytes (%) (Auto) Eosinophils (%) (Auto) Basophils (%) (Auto) Neutrophils # (Auto) Lymphocytes # (Auto) Monocytes # (Auto) Eosinophils # (Auto) Basophils # (Auto) CBC Comment AUTO DIFF Differential Total Cells 100 Counted Neutrophils % (Manual) 63 Band Neutrophils % 19 Lymphocytes % 6 Monocytes % 4 Eosinophils % 4 Basophils % 1 Neutrophils # (Manual) 11.5 Metamyelocytes 2 Promyelocytes 1 Nucleated Red Blood Cells 1 Differential Comment FINAL DIFF MANUAL Platelet Estimate NORMAL Platelet Morphology Comment NORMAL Keratocytes OCC Sodium Level 149 Potassium Level 3.4 Chloride Level 111 Carbon Dioxide Level 30.3 Anion Gap 8 Blood Urea Nitrogen 62 Creatinine 1.35 Estimat Glomerular Filtration 48 Rate Random Glucose 194 Lactic Acid Level 1.2 Calcium Level 10.2 Phosphorus Level 1.7 Magnesium Level 2.1 Total Bilirubin 0.4 Aspartate Amino Transf 56 (AST/SGOT) Alanine Aminotransferase 25 (ALT/SGPT) Alkaline Phosphatase 107 Total Protein 6.6 Albumin 2.1 Date/Time Procedure Status Source Growth 03/15/16 09:30 Urine Culture - Final Complete Urine Clean Catch NO GROWTH IN 48 HOURS. Radiology Last Impressions GI Procedure 03/05/16 0000 Signed Impressions: Service Date/Time: Friday, March 04, 2016 23:02 - CONCLUSION: ERCP as above. Vidal Ye MD Chest X-Ray 03/04/16 1626 Signed Impressions: Service Date/Time: Friday, March 04, 2016 16:52 - CONCLUSION: 1. Mild cardiomegaly. 2. No acute focal pulmonary infiltrate or pulmonary vascular congestion. 3. Mild elevation of right hemidiaphragm. Odilon Butler MD Gall Bladder Ultrasound 03/04/16 0000 Signed Impressions: Service Date/Time: Friday, March 04, 2016 19:36 - CONCLUSION: 1. Thick-walled gallbladder with some pericholecystic fluid and multiple gallstones in the region of the neck. The findings are suggestive of acute cholecystitis. Clinical correlation is recommended. 2. Fatty liver. 3. Minimal ascites within Polanco's pouch. 4. Poor visualization of the pancreas due to shadowing bowel gas. Odilon Butler MD Cholangiopancreatography MRI 03/04/16 0000 Signed Impressions: Service Date/Time: Friday, March 04, 2016 18:24 - CONCLUSION: 1. Extensive edema throughout the retroperitoneum and pancreas. No abscess or pseudocyst. 2. Tiny layering gallstones within the gallbladder. No discrete common bile duct stone. There is tapering of the common bile duct within the pancreatic head felt to be secondary to the edema within the pancreas. No discrete mass or choledocholithiasis. No intrahepatic or extrahepatic ductal dilatation. Maxwell Hsu Jr., MD Cardiovascular: Regular Narrative Exam Abdomen distended; moderately tender, but also relatively soft. No peritoneal signs. A/P Assessment and Plan Severe pancreatitis. Overall hemodynamically stable. Don't anticipate surgical intervention at this time. Molina Mancilla MD Mar 18, 2016 13:01
[2016-03-18] MEDS: HEPARIN SODIUM - IV 10,000 UNITS/10 ML VIAL PRN (14:09)
[2016-03-18] MEDS: GENTAMICIN SULFATE (DIALYSIS USE ONLY) 20 MG/2 ML VIAL IV PRN (14:09)
[2016-03-18] MEDS: EPOETIN ALFA 10,000 UNITS/ML VIAL IV PRN (14:09)
[2016-03-18] MEDS: SODIUM CHLOR 0.9% 1000 ML INJ 1,000 ML IV PRN (14:09)
--- NOTE | 2016-03-18 14:33 | HHI.NPPN ---
Subjective Renal Failure: Acute History of Present Illness 66 year old with Gall stone Pancreatitis Objective Data Data 03/17/16 03/18/16 19:00 07:00 Intake Total 1169 ml 2135 ml Output Total 1100 ml 725 ml Balance 69 ml 1410 ml IV Total 450 ml 481 ml Tube Feeding 46 ml 314 ml TPN/PPN 553 ml 1250 ml Tube Irrigant 120 ml 90 ml Output Urine Total 450 ml 550 ml Stool Total 650 ml 175 ml Vital Signs Date Time Temp Pulse Resp B/P Pulse Ox O2 Delivery O2 Flow Rate FiO2 03/18/16 14:00 122 03/18/16 12:00 84 03/18/16 12:00 99.5 84 26 148/65 99 03/18/16 10:00 104 03/18/16 08:18 95 Nasal Cannula 3.00 03/18/16 08:00 108 03/18/16 08:00 99.9 108 25 162/60 95 03/18/16 07:00 95 Nasal Cannula 3.00 03/18/16 06:00 102 03/18/16 04:00 100.1 97 26 167/70 96 03/18/16 04:00 97 03/18/16 03:00 93 03/18/16 00:00 108 03/18/16 00:00 99.2 108 23 148/63 95 03/17/16 22:00 107 03/17/16 20:00 99.7 115 30 181/73 96 03/17/16 20:00 120 03/17/16 19:00 97 Nasal Cannula 3.00 03/17/16 18:00 106 03/17/16 16:00 91 03/17/16 16:00 99.4 91 23 141/65 97 -: 03/18/16 0400 03/18/16 0400 Physical Exam General Appearance: Well Developed Neck Neck Exam: Neck Supple Pulmonary Resp Exam: Decreased Bases Cardiology CV Exam: Tachycardia Gastrointestinal/Abdomen GI Exam: Soft, Distended Extremeties Extremities Exam: Moderate Edema, Pitting Edema Neurologic Neuro Exam: Alert, Awake Assessment/Plan Problem List: (1) Acute renal failure Plan: patient is on HD ,seen during hemodialysis 4K/HCO3, 4 L UF tolerating it well continue supportive care for now (2) Anasarca Plan: improving with hemodialysis (3) Pancreatitis, acute Plan: She will be observed (4) Severe sepsis with acute organ dysfunction Plan: ID is following on Meropenem, and micafungin (5) Cholangitis Plan: As above Problem Qualifiers (1) Acute renal failure: Qualified Code: N17.0 - Acute renal failure with tubular necrosis (2) Pancreatitis, acute: Estela Lares MD Mar 18, 2016 14:33
[2016-03-18] MEDS ORDERED: SODIUM ACETATE IV-CENTRAL SCH ×9 (20:00)
[2016-03-18] MEDS ORDERED: [UNRECOGNIZED DRUG - OTHER] IV-CENTRAL SCH ×9 (20:00)
[2016-03-18] MEDS ORDERED: SODIUM CHLORIDE IV-CENTRAL SCH ×9 (20:00)
[2016-03-18 21:03] LABS: POTASSIUM 3.8 MEQ/L (3.5-5.1)
[2016-03-19] VITALS (13 sets, daily range): BP systolic 125–174; BP diastolic 58–80; PULSE 71–92; RESP 19–23; TEMP 99.5–101.1; O2SAT 95–100
[2016-03-19] MEDS: MEROPENEM INJ 1,000 MG in SODIUM CHLORIDE 0.9% INJ 100 ML IV SCH ×3 (01:31→18:11)
[2016-03-19] MEDS: NITROGLYCERIN 2% OINT 1 GM PACKET TOPICAL SCH ×4 (01:32→17:11)
[2016-03-19] MEDS: METOPROLOL TARTRATE 5 MG/5 ML VIAL IV PUSH SCH ×6 (01:32→22:18)
[2016-03-19] MEDS: CHLORHEXIDINE GLUCONATE 2 % 1 PACK (2 CLOTHS) TOP SCH (04:00)
[2016-03-19 05:16] LABS: AUTOMATED NEUTROPHIL # 11.1 TH/MM3 (1.8-7.7); BASOPHIL # 0.1 TH/MM3 (0-0.2); BASOPHIL % 0.5 % (0.0-2.0); EOSINOPHIL # 0.2 TH/MM3 (0-0.4); EOSINOPHIL % 1.4 % (0.0-4.0); LYMPH % 8.3 % (9.0-44.0); LYMPHOCYTE # 1.2 TH/MM3 (1.0-4.8); MEAN CORPUSCULAR HEMOGLOBIN 28.7 PG (27.0-34.0); MEAN CORPUSCULAR HGB CONC 32.6 % (32.0-36.0); MONO % 12.8 % (0.0-8.0); PLATELET COUNT 306 TH/MM3 (150-450); RED BLOOD COUNT 2.84 MIL/MM3 (4.00-5.30); RED CELL DISTRIBUTION WIDTH 15.7 % (11.6-17.2); WHITE BLOOD COUNT 14.4 TH/MM3 (4.0-11.0)
[2016-03-19 05:32] LABS: HEMO FLAGS AUTO DIFF
[2016-03-19 05:35] LABS: ALKALINE PHOSPHATASE 137 U/L (45-117); ALT (GPT) 31 U/L (10-53); ANION GAP 6 MEQ/L (5-15); AST (GOT) 61 U/L (15-37); BICARBONATE 30.2 MEQ/L (21.0-32.0); BLOOD UREA NITROGEN 50 MG/DL (7-18); CHLORIDE 114 MEQ/L (98-107); GLOMERULAR FILTRATION RATE 65 ML/MIN (>89); MAGNESIUM 2.1 MG/DL (1.5-2.5); POTASSIUM 3.9 MEQ/L (3.5-5.1); SODIUM (NA) 150 MEQ/L (136-145); TOTAL BILIRUBIN ADULT 0.3 MG/DL (0.2-1.0)
[2016-03-19] MEDS: METOCLOPRAMIDE HCL 10 MG/2 ML VIAL IV PUSH SCH ×3 (06:37→22:18)
[2016-03-19] MEDS: HEPARIN SODIUM - SQ 10,000 UNITS/ML VIAL SQ SCH ×2 (08:50→22:16)
[2016-03-19] MEDS: LACTULOSE SYRUP 20 GM/30 ML CUP PO SCH (08:50)
[2016-03-19] MEDS: PANTOPRAZOLE SODIUM 40 MG VIAL IV SCH (08:50)
[2016-03-19] MEDS: INSULIN DETEMIR 100 UNITS/ML VIAL SQ SCH (08:50)
[2016-03-19] MEDS: POLYETHYLENE GLYCOL 17 GM PKG PO SCH (08:50)
[2016-03-19] MEDS: SODIUM CHLORIDE 0.9% FLUSH 5 ML FLUSH IVF SCH (08:51)
[2016-03-19] MEDS: ACETAMINOPHEN/HYDROcodone 325 MG/5 MG TAB PO PRN ×2 (08:51→17:11)
[2016-03-19] MEDS: DOCUSATE SODIUM 100 MG CAP PO SCH ×2 (08:51→22:16)
[2016-03-19] MEDS: SENNOSIDES 8.6 MG TAB PO SCH ×2 (08:51→22:17)
[2016-03-19] MEDS: SODIUM CHLORIDE 0.9% FLUSH 5 ML FLUSH IV FLUSH SCH ×2 (08:51→22:16)
--- NOTE | 2016-03-19 09:50 | HHI.CCPN ---
Subjective Remarks/Hospital Course > 48 hour history of epigastric pain, vomiting. GB US reveals cholecystitis with stones in neck. MRCP - pancreatitis, ducts not dilated. Received stent into a bile duct secondary to stricture due to pancreatic head edema. [facility] re -consulted today 03/12 due to patient's tachypnea and abdominal distention. 03/13 - Patient appears significantly more acutely ill since I last saw her . Answers questions in 1-2 word responses. Resting in bed with quite distant added. Diffuse in all 4 quadrants abdominal stated to be Pain 10 out of 10. Tube feeds on hold. Decreased urine output noted. 03/14: Tmax 100. Currently 98.9. Status post -4 L hemodialysis yesterday. Breathing appears intermittently tachypneic and labored however she is more alert today and able to verbally complete sentences today. No bowel movement yesterday. Tube feeds currently off. 03/15: Tmax 102. Currently 100.5. Status post -3.5 L hemodialysis today. More lethargic. TPN to be initiated today. 03/16: Afebrile overnight. Started on TPN with elevated blood sugars. Currently on insulin drip. 2 large bowel movements yesterday. She is making adequate urine output. Pain better controlled today. White cell count has decreased slowly. Clinically appears better. 03/17: Afebrile. Blood sugars are stabilized. White cell count is stabilized. Positive BM yesterday. Abdomen less distended but abdominal pressure still in the low 20s. Arousable and follows commands. 03/18: Tmax 100.1. 2 BMs yesterday. Currently resting in bed. Abdominal pressures 17-19 overnight. Arousable and will follow commands. Subjective 03/19/16: Tmax 100.2. Positive BM. -3 L hemodialysis yesterday. Patient agitated overnight. Currently received [place] and sedated. Complains of abdominal pain. Abdomen appears much less distended than previously. Objective Vital Signs Date Time Temp Pulse Resp B/P Pulse Ox O2 Delivery O2 Flow Rate FiO2 03/19/16 08:03 99 Nasal Cannula 3.00 03/19/16 06:00 88 03/19/16 04:00 100.2 21 157/70 Intake and Output 03/18/16 03/18/16 03/19/16 08:00 16:00 00:00 Intake Total 931 ml 1264 ml 984 ml Output Total 4000 ml 1375 ml Balance 931 ml -2736 ml -391 ml Result Diagram: 03/19/16 0430 03/19/16 0430 Other Results Microbiology Date/Time Procedure Status Source Growth 03/15/16 09:30 Urine Culture - Final Complete Urine Clean Catch NO GROWTH IN 48 HOURS. Imaging Last Impressions Abdomen X-Ray 03/18/16 0600 Signed Impressions: Service Date/Time: Friday, March 18, 2016 04:13 - CONCLUSION: Gaseous distention of multiple bowel loops unchanged. Wilian Rojas MD Abdomen/Pelvis CT 03/15/16 0000 Signed Impressions: Service Date/Time: Tuesday, March 15, 2016 15:26 - CONCLUSION: 1. Compared to the prior exam, the previously noted gas bubbles in the wall of the cecum have resolved. 2. Otherwise, no other new or significant changes compared to the prior study. Wilver Bond MD Chest X-Ray 03/14/16 1159 Signed Impressions: Service Date/Time: Monday, March 14, 2016 12:22 - CONCLUSION: 1. Right-sided central line in place. 2. No pneumothorax. Wilver Bond MD Head CT 03/14/16 0000 Signed Impressions: Service Date/Time: Monday, March 14, 2016 16:13 - CONCLUSION: Normal examination. Jere Toro MD Renal Ultrasound 03/13/16 0000 Signed Impressions: Service Date/Time: Sunday, March 13, 2016 16:39 - CONCLUSION: Unremarkable renal ultrasound. K. Stephen Lundy MD GI Procedure 03/05/16 0000 Signed Impressions: Service Date/Time: Friday, March 04, 2016 23:02 - CONCLUSION: ERCP as above. Vidal Ye MD Gall Bladder Ultrasound 03/04/16 0000 Signed Impressions: Service Date/Time: Friday, March 04, 2016 19:36 - CONCLUSION: 1. Thick-walled gallbladder with some pericholecystic fluid and multiple gallstones in the region of the neck. The findings are suggestive of acute cholecystitis. Clinical correlation is recommended. 2. Fatty liver. 3. Minimal ascites within Polanco's pouch. 4. Poor visualization of the pancreas due to shadowing bowel gas. Odilon Butler MD Cholangiopancreatography MRI 03/04/16 0000 Signed Impressions: Service Date/Time: Friday, March 04, 2016 18:24 - CONCLUSION: 1. Extensive edema throughout the retroperitoneum and pancreas. No abscess or pseudocyst. 2. Tiny layering gallstones within the gallbladder. No discrete common bile duct stone. There is tapering of the common bile duct within the pancreatic head felt to be secondary to the edema within the pancreas. No discrete mass or choledocholithiasis. No intrahepatic or extrahepatic ductal dilatation. Maxwell Hsu Jr., MD Objective Remarks GENERAL: 66-year-old AA female, morbidly obese, critically ill appearing, currently resting in bed in no acute distress SKIN: Warm and dry. No rash HEAD: Atraumatic. Normocephalic. EYES: Pupils equal and round around 3 mm bilaterally and reactive. No scleral icterus. No injection or drainage. ENT: No nasal bleeding or discharge. Mucous membranes pink and moist. [place] fed tube in right nares NECK: Trachea midline. No JVD. Left hemodialysis catheter clean dry and intact. Right IJ CVL clean dry and intact CARDIOVASCULAR: Regular rate and rhythm. S1, S2. No S4. Without murmur RESPIRATORY: Distant breath sounds. Symmetrical excursion. Shallow respirations. GASTROINTESTINAL: Abdomen obese. Tender to palpation in all quadrants with no rebound. Voluntary guarding. No rigidity. Hypoactive bowel sounds MUSCULOSKELETAL: Extremities with 1+ lower extremity pedal edema/anasarca-like improved from yesterday. No obvious deformities. NEUROLOGICAL: Awake and alert to person only. No obvious cranial nerve deficits. Motor grossly within normal limits. Five out of 5 muscle strength in the arms and legs. Currently mumbling this morning PSYCHIATRIC: Depressed mood and affect. Vascular Central Line Catheter: Yes Assessment to: Continue Date of Insertion: Mar 14, 2016 Line: Central Venous Catheter Side: Right Location: Internal, Jugular A/P Problem List: (1) Severe sepsis with acute organ dysfunction ICD Code: A41.9 Status: Acute (2) Cholangitis ICD Code: K83.0 Status: Acute (3) Hypertensive urgency ICD Code: I16.0 Status: Acute Assessment and Plan Neuro/Psych: Pain management for acute pancreatitis Acetaminophen for fever [place] 5/325 one every 4 hours/ morphine 2 mg every 3 hours hours when necessary for pain management CV: Severe sepsis from cholangitis and pancreatitis Hypertension by history Dyslipidemia Lactic acidosis - resolved - appears fluid overloaded, +18 kg since admission. -16.5 L past 5 dialysis sessions. Sunday/ and Sunday schedule - repeat Lactate 03/18 6 AM normal at 1.2 - Holding home medications lisinopril/HCTZ in light of acute kidney injury. - Noted elevated HDL/LDL/total cholesterol - triglycerides within normal limits Consider statin when appropriate once LFTs normalize - As needed labetalol, hydralazine, Nitropaste for blood pressure control of present - Previously on metoprolol 50 mg twice a day with some SVT during this hospitalization. We'll switch to IV Lopressor 5 milligrams every 4 hours with scheduled Nitropaste 2 inches every 6 hours while nothing by mouth - 2-D echo EF 55 - 60%. Trace MR. ANNIE 39 mmHg Resp: Acute respiratory insufficiency likely secondary to volume overload - Nasal cannula to maintain saturations greater than equal to 92% - Incentive spirometry while awake - Chest x-ray 03/14 after line placement reveals possible right lower lobe effusion/atelectasis. Chest x-ray ordered for a.m. GI: Status post ERCP/placement of stenting, bile duct secondary to stenosis Acute necrotizing Pancreatitis Possible pneumatosis intestinalis Transaminitis Hypo-albuminemia CT abdomen/pelvis 03/12 revealed multiple gallstones/worsening pancreatitis and possible pneumatosis intestinalis involving the cecum and the ascending colon Dr. Ceballos/general surgery following Discussed with Dr. Moulton yesterday. Agreed with hemodialysis and attempt to remove extra cellular fluid while maintaining intravascular volume. Difficult situation 14-24 intra-abdominal bladder pressures - Dr. Lucero/GI performed ERCP 03/04 with stent placement, distal common bile duct 8.5 [place] 7 cm secondary to stricture - Ultrasound revealed thickening in the gallbladder with pericholecystic fluid. Tiny gallstones noted. - MRCP revealed retroperitoneal edema, with edema causing potentially narrowing of the distal common bile duct Plan on repeating CT abdomen and pelvis 03/15 with oral contrast Test complete. Awaiting results. 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 [employer]worker [employer] sent appropriate paperwork to review. I called transfer center. If unavailable will contact [facility] for another option. Discussed with surgery 03/18. Currently with watchful waiting. He will contact specialist pancreatic surgeons at [facility] and [facility] to see if transfer appropriate at this time. Continue with rectal tube to LIWS Adjusting TPN see orders. Tube feeds with Nepro at 20 cc an hour per general surgery : Azul if needed for accurate I's and O's in critically ill patient Endo: Hyperglycemia of critical illness Algorithm 4. Currently at 5 units an hour Levemir 60 units twice a day . Increased to 90 units twice daily Continue TPN initiated Renal: LOI - fluid overload. +16 kg since admission - Creatinine appears to be stabilizing - Avoid nephrotoxic drugs. Noted lisinopril/hctz held - Nephrology consultation. -Negative urine eosinophils renal ultrasound - Follow BMP in a.m. Heme/Onc: History of breast cancer status post right mastectomy Leukocytosis Normocytic anemia CBC/coags ordered this a.m. Currently holding Letrozole 2.5 mg daily with elevated LFTs. Resume when clinically indicated ID: Possible necrotizing pancreatitis/pneumatosis intestinalis Day #7 micafungin/Merrem ID consult appreciated Pertinent cultures 03/04 - urine culture - negative 03/04 - blood cultures 2 - negative 03/07 - blood cultures 2 - negative 03/13 - blood cultures 2 -no growth 03/15 - urine culture -no growth FEN: Hypercalcemia Hypernatremia Hypophosphatemia Replace electrolytes as clinically indicated Currently on Nepro at 20 cc an hour general surgery TPN renal mix to be adjusted see orders 15 mmol K-Phos IV 1. Recheck in a.m. Removing calcium from TPN. Lowering sodium TPN. See orders MSK: Out of bed/PT evaluate and treat Access -Right IJ CVL day 6 placed 03/14 - Left IJ hemodialysis catheter placed 03/13 Prophylaxis - GI - Protonix - DVT - SCD/heparin Critical Care: The total critical care time was 35 minutes. Time to perform other separately billable procedures was not included in the critical care time. Discuss with daughter at bedside.. Care plan discussed. All questions answered. Rosalio Bowie MD Mar 19, 2016 09:50
[2016-03-19] MEDS ORDERED: POTASSIUM PHOSPHATE INJ 15 MMOL in SODIUM CHLORIDE 0.9% INJ 150 ML IV ONE (11:00)
[2016-03-19] MEDS: MICAFUNGIN INJ 150 MG in SODIUM CHLORIDE 0.9% INJ 100 ML IV SCH (11:16)
[2016-03-19 11:28] LABS: BANDS 9 % (0-6); BASOPHILS 1 % (0-2); CORRECTED NUCLEATED RBC 1 /100 WBC (0-0); MYELOCYTES 1 % (0-0); NEUTROPHIL # MANUAL DIFF 12.1 TH/MM3 (1.8-7.7); POLYS (SEG NEUTROPHILS) 74 % (16-70); WBC DIFF SAMPLE 100
[2016-03-19 11:29] LABS: OVALOCYTES 1+ (NORMAL); PLATELET ESTIMATE SMEAR NORMAL (NORMAL); PLATELET MORPHOLOGY NORMAL (NORMAL); POLYCHROMASIA 2.5 % (0.0-1.9); SCAN/DIFF FINAL DIFF MANUAL
--- NOTE | 2016-03-19 12:30 | HHI.PR ---
Subjective Subjective Notes More alert today; denies pain; no other complaints. Tolerating TF. Objective Vitals/I&O Vital Signs Date Time Temp Pulse Resp B/P Pulse Ox O2 Delivery O2 Flow Rate FiO2 03/19/16 08:03 99 Nasal Cannula 3.00 03/19/16 06:00 88 03/19/16 04:00 100.2 21 157/70 Labs Laboratory Tests Test 03/18/16 03/19/16 19:57 04:30 Potassium Level 3.8 3.9 Phosphorus Level 1.9 2.0 White Blood Count 14.4 Red Blood Count 2.84 Hemoglobin 8.2 Hematocrit 25.0 Mean Corpuscular Volume 88.0 Mean Corpuscular Hemoglobin 28.7 Mean Corpuscular Hemoglobin 32.6 Concent Red Cell Distribution Width 15.7 Platelet Count 306 Mean Platelet Volume 8.9 Neutrophils (%) (Auto) 77.0 Lymphocytes (%) (Auto) 8.3 Monocytes (%) (Auto) 12.8 Eosinophils (%) (Auto) 1.4 Basophils (%) (Auto) 0.5 Neutrophils # (Auto) 11.1 Lymphocytes # (Auto) 1.2 Monocytes # (Auto) 1.8 Eosinophils # (Auto) 0.2 Basophils # (Auto) 0.1 CBC Comment AUTO DIFF Differential Total Cells 100 Counted Neutrophils % (Manual) 74 Band Neutrophils % 9 Lymphocytes % 7 Monocytes % 8 Basophils % 1 Neutrophils # (Manual) 12.1 Myelocytes 1 Nucleated Red Blood Cells 1 Differential Comment FINAL DIFF MANUAL Platelet Estimate NORMAL Platelet Morphology Comment NORMAL Polychromasia 2.5 Ovalocytes 1+ Sodium Level 150 Chloride Level 114 Carbon Dioxide Level 30.2 Anion Gap 6 Blood Urea Nitrogen 50 Creatinine 1.03 Estimat Glomerular Filtration 65 Rate Random Glucose 160 Calcium Level 10.9 Magnesium Level 2.1 Total Bilirubin 0.3 Aspartate Amino Transf 61 (AST/SGOT) Alanine Aminotransferase 31 (ALT/SGPT) Alkaline Phosphatase 137 Total Protein 6.9 Albumin 2.1 Date/Time Procedure Status Source Growth 03/15/16 09:30 Urine Culture - Final Complete Urine Clean Catch NO GROWTH IN 48 HOURS. Radiology Last Impressions GI Procedure 03/05/16 0000 Signed Impressions: Service Date/Time: Friday, March 04, 2016 23:02 - CONCLUSION: ERCP as above. Vidal Ye MD Chest X-Ray 03/04/16 6016 Signed Impressions: Service Date/Time: Friday, March 04, 2016 16:52 - CONCLUSION: 1. Mild cardiomegaly. 2. No acute focal pulmonary infiltrate or pulmonary vascular congestion. 3. Mild elevation of right hemidiaphragm. Odilon Butler MD Gall Bladder Ultrasound 03/04/16 0000 Signed Impressions: Service Date/Time: Friday, March 04, 2016 19:36 - CONCLUSION: 1. Thick-walled gallbladder with some pericholecystic fluid and multiple gallstones in the region of the neck. The findings are suggestive of acute cholecystitis. Clinical correlation is recommended. 2. Fatty liver. 3. Minimal ascites within Polanco's pouch. 4. Poor visualization of the pancreas due to shadowing bowel gas. Odilon Butler MD Cholangiopancreatography MRI 03/04/16 0000 Signed Impressions: Service Date/Time: Friday, March 04, 2016 18:24 - CONCLUSION: 1. Extensive edema throughout the retroperitoneum and pancreas. No abscess or pseudocyst. 2. Tiny layering gallstones within the gallbladder. No discrete common bile duct stone. There is tapering of the common bile duct within the pancreatic head felt to be secondary to the edema within the pancreas. No discrete mass or choledocholithiasis. No intrahepatic or extrahepatic ductal dilatation. Maxwell Hsu Jr., MD Cardiovascular: Regular Lungs: Clear Narrative Exam Abdomen distended; moderately tender, but also relatively soft. No peritoneal signs. A/P Assessment and Plan Severe pancreatitis. Overall hemodynamically stable. Don't anticipate surgical intervention at this time. Molina Mancilla MD Mar 19, 2016 12:29
--- NOTE | 2016-03-19 14:49 | HHI.NPPN ---
Subjective Renal Failure: Acute History of Present Illness 66 year old with Gall stone Pancreatitis Objective Data Data 03/18/16 03/19/16 19:00 07:00 Intake Total 1264 ml 1942 ml Output Total 4000 ml 2425 ml Balance -2736 ml -483 ml IV Total 463 ml 432 ml Tube Feeding 163 ml 298 ml TPN/PPN 578 ml 1212 ml Tube Irrigant 60 ml Output Urine Total 750 ml 1275 ml Stool Total 250 ml 1150 ml Hemodialysis 3000 ml Vital Signs Date Time Temp Pulse Resp B/P Pulse Ox O2 Delivery O2 Flow Rate FiO2 03/19/16 12:00 80 03/19/16 12:00 99.6 80 20 127/58 97 03/19/16 10:00 82 03/19/16 08:03 99 Nasal Cannula 3.00 03/19/16 08:00 101.1 88 19 174/72 100 03/19/16 08:00 88 03/19/16 07:00 99 Nasal Cannula 3.00 03/19/16 06:00 88 03/19/16 04:00 100.2 90 21 157/70 99 03/19/16 04:00 90 03/19/16 02:00 71 03/19/16 00:00 99.8 87 21 125/59 97 03/19/16 00:00 87 03/18/16 22:00 86 03/18/16 20:04 96 Nasal Cannula 3.00 03/18/16 20:00 89 03/18/16 20:00 99.6 91 22 143/6 96 03/18/16 19:00 97 Nasal Cannula 3.00 03/18/16 18:00 97 03/18/16 16:00 99.9 95 22 154/76 97 03/18/16 16:00 95 -: 03/19/16 0430 03/19/16 0430 Physical Exam General Appearance: Well Developed Neck Neck Exam: Neck Supple Pulmonary Resp Exam: Decreased Bases Cardiology CV Exam: Tachycardia Gastrointestinal/Abdomen GI Exam: Soft, Distended Extremeties Extremities Exam: Moderate Edema, Pitting Edema Neurologic Neuro Exam: Alert, Awake Assessment/Plan Problem List: (1) Acute renal failure Plan: patient has hemodialysis yesterday 3 L UF She is maintaining good urine output creatinine has declined Will monitor and decide about further dialysis (2) Anasarca Plan: improving with hemodialysis (3) Pancreatitis, acute Plan: She will be observed (4) Severe sepsis with acute organ dysfunction Plan: ID is following on Meropenem, and micafungin (5) Cholangitis Plan: As above Problem Qualifiers (1) Acute renal failure: Qualified Code: N17.0 - Acute renal failure with tubular necrosis (2) Pancreatitis, acute: Estela Lares MD Mar 19, 2016 14:49
[2016-03-19] MEDS ORDERED: ALTEPLASE RECOMBINANT 2 MG VIAL IV FLUSH ONE (17:00)
[2016-03-19] MEDS ORDERED: [UNRECOGNIZED DRUG - OTHER] IV-CENTRAL SCH ×7 (20:00)
[2016-03-19] MEDS ORDERED: SODIUM CHLORIDE IV-CENTRAL SCH ×7 (20:00)
[2016-03-19] MEDS ORDERED: SODIUM ACETATE IV-CENTRAL SCH ×7 (20:00)
[2016-03-19] MEDS ORDERED: INSULIN DETEMIR 100 UNITS/ML VIAL SQ SCH (21:00)
[2016-03-20] VITALS (14 sets, daily range): BP systolic 102–172; BP diastolic 56–72; PULSE 76–96; RESP 14–25; TEMP 99.1–101; O2SAT 95–100
[2016-03-20] MEDS: METOPROLOL TARTRATE 5 MG/5 ML VIAL IV PUSH SCH ×7 (00:02→23:33)
[2016-03-20] MEDS: NITROGLYCERIN 2% OINT 1 GM PACKET TOPICAL SCH ×5 (00:02→23:34)
[2016-03-20] MEDS: MORPHINE SULFATE 4 MG/ML INJ IV PUSH PRN ×2 (00:03→20:20)
[2016-03-20] MEDS: INSULIN REGULAR (IV INFUSION) 100 UNITS in SODIUM CHLORIDE 0.9% INJ 99 ML IV SCH (00:59)
[2016-03-20] MEDS: MEROPENEM INJ 1,000 MG in SODIUM CHLORIDE 0.9% INJ 100 ML IV SCH ×3 (03:37→19:36)
[2016-03-20] MEDS: CHLORHEXIDINE GLUCONATE 2 % 1 PACK (2 CLOTHS) TOP SCH (04:00)
[2016-03-20] MEDS: ACETAMINOPHEN 325 MG TAB PO PRN ×2 (04:33→20:19)
--- NOTE | 2016-03-20 06:00 | RADRPT ---
EXAM DATE/TIME: 03/20/2016 05:05 [facility] COMPARISON: CHEST SINGLE AP, March 14, 2016, 12:22. INDICATIONS : Patient short of breath. MEDICAL HISTORY : Hypertension. Carcinoma, breast. Renal failure, chronic. SURGICAL HISTORY : Mastectomy, right. Hysterectomy. ENCOUNTER: Subsequent ACUITY: 1 week PAIN SCORE: Non-responsive. LOCATION: Bilateral chest FINDINGS: A single portable frontal view of the chest is blurred by motion artifact. Bilateral central lines an d weighted feeding tube noted. No pneumothorax. Lungs are grossly clear. No effusions. Heart is at th e upper limits of normal in terms of size. Scoliotic curvature. CONCLUSION: Limited study by breathing motion artifact. Lungs are grossly clear. Maxwell Hsu Jr., MD on March 20, 2016 at 5:58 Board Certified Radiologist. This report was verified electronically.
--- NOTE | 2016-03-20 06:01 | RADRPT ---
EXAM DATE/TIME: 03/20/2016 05:08 [facility] COMPARISON: ABDOMEN KUB ONLY, March 18, 2016, 4:13. INDICATIONS : Please evaluate for ileus. MEDICAL HISTORY : Hypertension. Carcinoma, breast. Renal failure, chronic. SURGICAL HISTORY : Mastectomy, right. Hysterectomy. ENCOUNTER: Subsequent ACUITY: 2 weeks PAIN SCORE: Non-responsive. LOCATION: Bilateral abdomen FINDINGS: 2 supine frontal views of the abdomen show a weighted feeding tube with the tip in the third portion of the duodenum. A Silastic biliary stent noted. Gas filled loops of nondilated large and small bowel . A catheter overlies the pelvis. No gross organomegaly. Scoliotic and degenerative spine. CONCLUSION: Feeding tube tip within the duodenum. No dilated loops of bowel. Maxwell Hsu Jr., MD on March 20, 2016 at 5:58 Board Certified Radiologist. This report was verified electronically.
[2016-03-20] MEDS: METOCLOPRAMIDE HCL 10 MG/2 ML VIAL IV PUSH SCH ×3 (06:03→22:24)
[2016-03-20 06:48] LABS: AUTOMATED NEUTROPHIL # 9.6 TH/MM3 (1.8-7.7); BASOPHIL # 0.1 TH/MM3 (0-0.2); BASOPHIL % 0.7 % (0.0-2.0); EOSINOPHIL # 0.3 TH/MM3 (0-0.4); HEMATOCRIT 24.4 % (35.0-46.0); LYMPH % 8.7 % (9.0-44.0); LYMPHOCYTE # 1.1 TH/MM3 (1.0-4.8); MEAN CELL VOLUME 89.1 FL (80.0-100.0); MEAN CORPUSCULAR HEMOGLOBIN 28.2 PG (27.0-34.0); MEAN CORPUSCULAR HGB CONC 31.6 % (32.0-36.0); MONO % 13.6 % (0.0-8.0); PLATELET COUNT 286 TH/MM3 (150-450); RED BLOOD COUNT 2.74 MIL/MM3 (4.00-5.30); RED CELL DISTRIBUTION WIDTH 16.4 % (11.6-17.2); WHITE BLOOD COUNT 12.8 TH/MM3 (4.0-11.0)
[2016-03-20 06:53] LABS: HEMO FLAGS AUTO DIFF
--- NOTE | 2016-03-20 07:08 | HHI.CCPN ---
Subjective Remarks/Hospital Course > 48 hour history of epigastric pain, vomiting. GB US reveals cholecystitis with stones in neck. MRCP - pancreatitis, ducts not dilated. Received stent into a bile duct secondary to stricture due to pancreatic head edema. [facility] re -consulted today 03/12 due to patient's tachypnea and abdominal distention. 03/13 - Patient appears significantly more acutely ill since I last saw her . Answers questions in 1-2 word responses. Resting in bed with quite distant added. Diffuse in all 4 quadrants abdominal stated to be Pain 10 out of 10. Tube feeds on hold. Decreased urine output noted. 03/14: Tmax 100. Currently 98.9. Status post -4 L hemodialysis yesterday. Breathing appears intermittently tachypneic and labored however she is more alert today and able to verbally complete sentences today. No bowel movement yesterday. Tube feeds currently off. 03/15: Tmax 102. Currently 100.5. Status post -3.5 L hemodialysis today. More lethargic. TPN to be initiated today. 03/16: Afebrile overnight. Started on TPN with elevated blood sugars. Currently on insulin drip. 2 large bowel movements yesterday. She is making adequate urine output. Pain better controlled today. White cell count has decreased slowly. Clinically appears better. 03/17: Afebrile. Blood sugars are stabilized. White cell count is stabilized. Positive BM yesterday. Abdomen less distended but abdominal pressure still in the low 20s. Arousable and follows commands. 03/18: Tmax 100.1. 2 BMs yesterday. Currently resting in bed. Abdominal pressures 17-19 overnight. Arousable and will follow commands. 03/19/16: Tmax 100.2. Positive BM. -3 L hemodialysis yesterday. Patient agitated overnight. Currently received [place] and sedated. Complains of abdominal pain. Abdomen appears much less distended than previously. Subjective 03/20/16: Tmax 101.1. Currently 101. More lethargic this a.m. likely secondary to fevers. White cell count continues to trend downward. A.m. labs pending. Tolerating tube feed. Positive BM. Objective Vital Signs Date Time Temp Pulse Resp B/P Pulse Ox O2 Delivery O2 Flow Rate FiO2 03/20/16 06:00 84 03/20/16 04:00 101.0 18 161/68 96 03/19/16 19:00 Nasal Cannula 2.00 Intake and Output 03/19/16 03/19/16 03/20/16 08:00 16:00 00:00 Intake Total 958 ml 1361 ml 983 ml Output Total 1050 ml 675 ml 1260 ml Balance -92 ml 686 ml -277 ml Result Diagram: 03/20/16 0630 03/19/16 0430 Other Results Microbiology Date/Time Procedure Status Source Growth 03/15/16 09:30 Urine Culture - Final Complete Urine Clean Catch NO GROWTH IN 48 HOURS. Imaging Last Impressions Abdomen X-Ray 03/18/16 0600 Signed Impressions: Service Date/Time: Friday, March 18, 2016 04:13 - CONCLUSION: Gaseous distention of multiple bowel loops unchanged. Wilian Rojas MD Abdomen/Pelvis CT 03/15/16 0000 Signed Impressions: Service Date/Time: Tuesday, March 15, 2016 15:26 - CONCLUSION: 1. Compared to the prior exam, the previously noted gas bubbles in the wall of the cecum have resolved. 2. Otherwise, no other new or significant changes compared to the prior study. Wilver Bond MD Chest X-Ray 03/14/16 1159 Signed Impressions: Service Date/Time: Monday, March 14, 2016 12:22 - CONCLUSION: 1. Right-sided central line in place. 2. No pneumothorax. Wilver Bond MD Head CT 03/14/16 0000 Signed Impressions: Service Date/Time: Monday, March 14, 2016 16:13 - CONCLUSION: Normal examination. Jere Toro MD Renal Ultrasound 03/13/16 0000 Signed Impressions: Service Date/Time: Sunday, March 13, 2016 16:39 - CONCLUSION: Unremarkable renal ultrasound. K. Stephen Lundy MD GI Procedure 03/05/16 0000 Signed Impressions: Service Date/Time: Friday, March 04, 2016 23:02 - CONCLUSION: ERCP as above. Vidal Ye MD Gall Bladder Ultrasound 03/04/16 0000 Signed Impressions: Service Date/Time: Friday, March 04, 2016 19:36 - CONCLUSION: 1. Thick-walled gallbladder with some pericholecystic fluid and multiple gallstones in the region of the neck. The findings are suggestive of acute cholecystitis. Clinical correlation is recommended. 2. Fatty liver. 3. Minimal ascites within Polanco's pouch. 4. Poor visualization of the pancreas due to shadowing bowel gas. Odilon Butler MD Cholangiopancreatography MRI 03/04/16 0000 Signed Impressions: Service Date/Time: Friday, March 04, 2016 18:24 - CONCLUSION: 1. Extensive edema throughout the retroperitoneum and pancreas. No abscess or pseudocyst. 2. Tiny layering gallstones within the gallbladder. No discrete common bile duct stone. There is tapering of the common bile duct within the pancreatic head felt to be secondary to the edema within the pancreas. No discrete mass or choledocholithiasis. No intrahepatic or extrahepatic ductal dilatation. Maxwell Hsu Jr., MD Objective Remarks GENERAL: 66-year-old AA female, morbidly obese, critically ill appearing, currently resting in bed in no acute distress SKIN: Warm and dry. No rash HEAD: Atraumatic. Normocephalic. EYES: Pupils equal and round around 3 mm bilaterally and reactive. No scleral icterus. No injection or drainage. ENT: No nasal bleeding or discharge. Mucous membranes pink and moist. Sherman fed tube in right nares NECK: Trachea midline. No JVD. Left hemodialysis catheter clean dry and intact. Right IJ CVL clean dry and intact CARDIOVASCULAR: Regular rate and rhythm. S1, S2. No S4. Without murmur RESPIRATORY: Distant breath sounds. Symmetrical excursion. Shallow respirations. Occasional grunting. GASTROINTESTINAL: Abdomen obese. Tender to palpation in all quadrants with no rebound. Voluntary guarding. No rigidity. Hypoactive bowel sounds MUSCULOSKELETAL: Extremities with trace bilateral lower extremity pedal edema/ anasarca-like improved from yesterday. No obvious deformities. NEUROLOGICAL: Awake and alert to person only. No obvious cranial nerve deficits. Motor grossly within normal limits. Five out of 5 muscle strength in the arms and legs. Currently mumbling this morning PSYCHIATRIC: Depressed mood and affect. Urinary Catheter: Yes Assessment to: Continue Azul insert reason: ICU Pt Getting Diuretics Vascular Central Line Catheter: Yes Assessment to: Continue Date of Insertion: Mar 14, 2016 Line: Central Venous Catheter Side: Right Location: Internal, Jugular A/P Problem List: (1) Severe sepsis with acute organ dysfunction ICD Code: A41.9 Status: Acute (2) Cholangitis ICD Code: K83.0 Status: Acute (3) Hypertensive urgency ICD Code: I16.0 Status: Acute Assessment and Plan Neuro/Psych: Pain management for acute pancreatitis Acetaminophen for fever [place] 5/325 one every 4 hours/ morphine 2 mg every 3 hours hours when necessary for pain management CV: Severe sepsis from cholangitis and pancreatitis Hypertension by history Dyslipidemia Lactic acidosis - resolved - appears fluid overloaded, +18 kg since admission. -16.5 L past 5 dialysis sessions. Sunday/ and Sunday schedule - repeat Lactate 03/18 6 AM normal at 1.2 - Holding home medications lisinopril/HCTZ in light of acute kidney injury. - Noted elevated HDL/LDL/total cholesterol - triglycerides within normal limits Consider statin when appropriate once LFTs normalize - As needed labetalol, hydralazine, Nitropaste for blood pressure control of present - Previously on metoprolol 50 mg twice a day with some SVT during this hospitalization. Continue IV Lopressor 5 milligrams every 4 hours with scheduled Nitropaste 2 inches every 6 hours while nothing by mouth - 2-D echo EF 55 - 60%. Trace ANNIE 39 mmHg Resp: Acute respiratory insufficiency likely secondary to volume overload - Nasal cannula to maintain saturations greater than equal to 92% - Incentive spirometry while awake - Chest x-ray 03/14 after line placement reveals possible right lower lobe effusion/atelectasis. Chest x-ray 03/20 essentially clear with no acute cardiopulmonary findings GI: Status post ERCP/placement of stenting, bile duct secondary to stenosis Acute necrotizing Pancreatitis Possible pneumatosis intestinalis Transaminitis Hypo-albuminemia CT abdomen/pelvis 03/12 revealed multiple gallstones/worsening pancreatitis and possible pneumatosis intestinalis involving the cecum and the ascending colon Dr. Ceballos/general surgery following Discussed with Dr. Moulton yesterday. Agreed with hemodialysis and attempt to remove extra cellular fluid while maintaining intravascular volume. Difficult situation 14-24 intra-abdominal bladder pressures - Dr. Lucero/GI performed ERCP 03/04 with stent placement, distal common bile duct 8.5 Filipino 7 cm secondary to stricture - Ultrasound revealed thickening in the gallbladder with pericholecystic fluid. Tiny gallstones noted. - MRCP revealed retroperitoneal edema, with edema causing potentially narrowing of the distal common bile duct Plan on repeating CT abdomen and pelvis 03/15 with oral contrast Test complete. Awaiting results. 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 auto body worker sent appropriate paperwork to review. I called transfer center. If unavailable will contact [facility] for another option. Discussed with surgery 03/18. Currently with watchful waiting. He will contact specialist pancreatic surgeons at [facility] and [facility] to see if transfer appropriate at this time. Continue with rectal tube to LIWS Adjusting TPN see orders. Tube feeds with Nepro at 20 cc an hour per general surgery advanced per general surgery : Azul if needed for accurate I's and O's in critically ill patient Endo: Hyperglycemia of critical illness Algorithm 4. Currently at 5 units an hour Levemir increased 120 units twice a day Continue TPN initiated Renal: LOI - fluid overload. +16 kg since admission - Creatinine appears to be stabilizing - Avoid nephrotoxic drugs. Noted lisinopril/hctz held - Nephrology consultation. -Negative urine eosinophils renal ultrasound without obstruction - Follow BMP in a.m. Heme/Onc: History of breast cancer status post right mastectomy Leukocytosis Normocytic anemia CBC/coags ordered this a.m. Currently holding Letrozole 2.5 mg daily with elevated LFTs. Resume when clinically indicated ID: Possible necrotizing pancreatitis/pneumatosis intestinalis Day #8 micafungin/Merrem ID consult appreciated Pertinent cultures 03/04 - urine culture - negative 03/04 - blood cultures 2 - negative 03/07 - blood cultures 2 - negative 03/13 - blood cultures 2 -no growth 03/15 - urine culture -no growth Replete urine/blood cultures 2 ordered for today with persistent fevers. Hopefully we can remove hemodialysis catheter/central line soon FEN: Hypercalcemia Hypernatremia Hypophosphatemia Replace electrolytes as clinically indicated Currently on Nepro at 20 cc an hour general surgery TPN renal mix to be adjusted see orders MSK: Out of bed/PT evaluate and treat Access -Right IJ CVL day 7 placed 03/14 - Left IJ hemodialysis catheter placed 03/13 Prophylaxis - GI - Protonix - DVT - SCD/heparin Critical Care: The total critical care time was 35 minutes. Time to perform other separately billable procedures was not included in the critical care time. Rosalio Bowie MD Mar 20, 2016 07:08
[2016-03-20 07:15] LABS: ALT (GPT) 30 U/L (10-53); ANION GAP 5 MEQ/L (5-15); AST (GOT) 59 U/L (15-37); BICARBONATE 30.5 MEQ/L (21.0-32.0); BLOOD UREA NITROGEN 47 MG/DL (7-18); CHLORIDE 118 MEQ/L (98-107); GLOMERULAR FILTRATION RATE 75 ML/MIN (>89); MAGNESIUM 2.1 MG/DL (1.5-2.5); POTASSIUM 4.2 MEQ/L (3.5-5.1); SODIUM (NA) 153 MEQ/L (136-145)
[2016-03-20 07:17] LABS: ALKALINE PHOSPHATASE 162 U/L (45-117); TOTAL BILIRUBIN ADULT 0.3 MG/DL (0.2-1.0)
[2016-03-20 08:12] LABS: BANDS 1 % (0-6); CORRECTED NUCLEATED RBC 1 /100 WBC (0-0); EOSINOPHILS 1 % (0-4); METAMYELOCYTES 1 % (0-1); NEUTROPHIL # MANUAL DIFF 11.3 TH/MM3 (1.8-7.7); POLYS (SEG NEUTROPHILS) 86 % (16-70); WBC DIFF SAMPLE 100
[2016-03-20 08:13] LABS: KERATOCYTES OCC (NORMAL); PLATELET ESTIMATE SMEAR NORMAL (NORMAL); PLATELET MORPHOLOGY NORMAL (NORMAL); SCAN/DIFF FINAL DIFF MANUAL
[2016-03-20] MEDS: SODIUM CHLORIDE 0.9% FLUSH 5 ML FLUSH IVF SCH (09:00)
[2016-03-20] MEDS: DOCUSATE SODIUM 100 MG CAP PO SCH ×2 (09:03→19:42)
[2016-03-20] MEDS: PANTOPRAZOLE SODIUM 40 MG VIAL IV SCH (09:03)
[2016-03-20] MEDS: SENNOSIDES 8.6 MG TAB PO SCH ×2 (09:03→19:41)
[2016-03-20] MEDS: INSULIN DETEMIR 100 UNITS/ML VIAL SQ SCH ×2 (09:04→19:41)
[2016-03-20] MEDS: SODIUM CHLORIDE 0.9% FLUSH 5 ML FLUSH IV FLUSH SCH ×2 (09:11→19:42)
[2016-03-20] MEDS: HEPARIN SODIUM - SQ 10,000 UNITS/ML VIAL SQ SCH ×3 (09:11→22:25)
[2016-03-20] MEDS: FREE WATER G-TUBE SCH ×4 (09:19→23:33)
[2016-03-20 09:21] LABS: BACTERIA, URINE FEW /hpf; BLOOD, URINE SMALL (NEG); COMMENT (UR) CATH-CULTURE IND; CULTURE IF INDICATED CATH CULTURE IND; GLUCOSE,URINE NEG (NEG); KETONE, URINE NEG (NEG); MUCUS URINE FEW /lpf (OCC); NITRITE,URINE NEG (NEG); PH, URINE 5.5 (5.0-8.5); SQUAMOUS EPITHELIAL CELL URINE <1 /hpf (0-5); URINE COLOR YELLOW (YELLW/STRAW)
[2016-03-20] MEDS: MICAFUNGIN IV SCH ×2 (11:04)
[2016-03-20] MEDS: DEXTROSE 5% IV SCH ×2 (11:04)
[2016-03-20] MEDS: WATER IV SCH ×2 (11:04)
[2016-03-20] MEDS: ACETAMINOPHEN/HYDROcodone 325 MG/5 MG TAB PO PRN (14:38)
--- NOTE | 2016-03-20 14:59 | HHI.NPPN ---
Subjective Renal Failure: Acute History of Present Illness 66 year old with Gall stone Pancreatitis Objective Data Data 03/19/16 03/20/16 19:00 07:00 Intake Total 1361 ml 1899 ml Output Total 675 ml 2360 ml Balance 686 ml -461 ml Intake Oral 120 ml IV Total 387 ml 332 ml Tube Feeding 155 ml 308 ml TPN/PPN 579 ml 1198 ml Tube Irrigant 120 ml Other 61 ml Output Urine Total 675 ml 1660 ml Stool Total 0 ml 700 ml Gastric Drainage Total 0 ml Vital Signs Date Time Temp Pulse Resp B/P Pulse Ox O2 Delivery O2 Flow Rate FiO2 03/20/16 12:00 99.3 84 25 149/65 98 03/20/16 12:00 78 03/20/16 10:00 76 03/20/16 09:42 100 Nasal Cannula 2.00 03/20/16 08:00 99.4 76 21 115/56 96 03/20/16 08:00 88 03/20/16 07:00 95 Nasal Cannula 2.00 03/20/16 06:00 84 03/20/16 04:00 101.0 89 18 161/68 96 03/20/16 04:00 89 03/20/16 02:00 90 03/20/16 00:08 20 03/20/16 00:00 99.1 96 23 172/72 96 03/19/16 22:00 86 03/19/16 20:00 88 03/19/16 20:00 99.6 88 21 136/61 95 03/19/16 19:00 95 Nasal Cannula 2.00 03/19/16 18:00 84 03/19/16 16:00 99.5 92 23 165/80 98 03/19/16 16:00 92 -: 03/20/16 0630 03/20/16 0630 Microbiology 03/20/16 Urine Culture, Received Pending 03/20/16 Aerobic Blood Culture, Received Pending 03/20/16 Anaerobic Blood Culture, Received Pending 03/20/16 Aerobic Blood Culture, Received Pending 03/20/16 Anaerobic Blood Culture, Received Pending Physical Exam General Appearance: Well Developed Neck Neck Exam: Neck Supple Pulmonary Resp Exam: Decreased Bases Cardiology CV Exam: Tachycardia Gastrointestinal/Abdomen GI Exam: Soft, Distended Extremeties Extremities Exam: Moderate Edema, Pitting Edema Neurologic Neuro Exam: Alert, Awake Assessment/Plan Problem List: (1) Acute renal failure Plan: ARF resolved Cr 0.9, Na 153 getting free water, TF started tolerating it may dc Vascath D/W Dr. Bowie She is maintaining good urine output creatinine has declined Nephrology to follow PRN bases (2) Anasarca Plan: improving with hemodialysis (3) Pancreatitis, acute Plan: She has improved (4) Severe sepsis with acute organ dysfunction Plan: ID is following on Meropenem (5) Cholangitis Plan: As above Problem Qualifiers (1) Acute renal failure: Qualified Code: N17.0 - Acute renal failure with tubular necrosis (2) Pancreatitis, acute: Estela Lares MD Mar 20, 2016 14:59
--- NOTE | 2016-03-20 16:17 | RADRPT ---
EXAM DATE/TIME: 03/20/2016 14:32 [place] COMPARISON: No previous studies available for comparison. INDICATIONS : Edema. MEDICAL HISTORY : Hypertension. Pancreatitis. Dyspnea. Gallstones. Right breast cancer. Nausea. Vomiting. Anxiety.. SURGICAL HISTORY : Hysterectomy.Mastectomy, right. ENCOUNTER: Initial ACUITY: 1 day PAIN SCORE: 9/10 LOCATION: Bilateral leg TECHNIQUE: Venous ultrasound of the left and right leg was performed from the inguinal ligament to the proximal calf. Real-time, color Doppler and spectral tracing, compression and augmentation techniques were us ed. FINDINGS: RIGHT LEG: There is normal compressibility of the deep venous system from the inguinal region to the proximal ca lf. No echogenic clot is seen in the lumen of the common femoral, femoral, popliteal, and posterior tibial veins. There is a normal response of the venous system to proximal and distal augmentation an d respiration. LEFT LEG: There is normal compressibility of the deep venous system from the inguinal region to the proximal ca lf. No echogenic clot is seen in the lumen of the common femoral, femoral, popliteal, and posterior tibial veins. There is a normal response of the venous system to proximal and distal augmentation an d respiration. CONCLUSION: No DVT of either lower extremity. Darrian Leary MD on March 20, 2016 at 16:16 Board Certified Radiologist. This report was verified electronically.
[2016-03-20] MEDS ORDERED: [UNRECOGNIZED DRUG - OTHER] IV-CENTRAL SCH ×8 (20:00)
[2016-03-20] MEDS ORDERED: POTASSIUM ACETATE IV-CENTRAL SCH ×8 (20:00)
[2016-03-20] MEDS ORDERED: SODIUM CHLORIDE IV-CENTRAL SCH ×8 (20:00)
[2016-03-20] MEDS ORDERED: GLUCAGON 1 MG/ML VIAL OTHER PRN (21:30)
[2016-03-20] MEDS ORDERED: DEXTROSE 50% IN WATER 50 ML VIAL(D50) IV PUSH PRN (21:30)
[2016-03-20] MEDS: INSULIN NovoLIN REGULAR SUPPLEMENTAL SCALE SQ SCH (23:33)
[2016-03-21] VITALS (13 sets, daily range): BP systolic 132–165; BP diastolic 61–71; PULSE 80–116; RESP 14–28; TEMP 99.8–101.5; O2SAT 92–100
[2016-03-21] MEDS: MEROPENEM INJ 1,000 MG in SODIUM CHLORIDE 0.9% INJ 100 ML IV SCH ×3 (02:09→17:51)
[2016-03-21] MEDS: CHLORHEXIDINE GLUCONATE 2 % 1 PACK (2 CLOTHS) TOP SCH (04:00)
[2016-03-21] MEDS: INSULIN NovoLIN REGULAR SUPPLEMENTAL SCALE SQ SCH ×5 (04:00→20:00)
[2016-03-21] MEDS: METOPROLOL TARTRATE 5 MG/5 ML VIAL IV PUSH SCH ×5 (04:23→20:07)
[2016-03-21] MEDS: MORPHINE SULFATE 4 MG/ML INJ IV PUSH PRN ×2 (04:25→20:07)
[2016-03-21 04:39] LABS: AUTOMATED NEUTROPHIL # 8.5 TH/MM3 (1.8-7.7); BASOPHIL # 0.1 TH/MM3 (0-0.2); BASOPHIL % 0.7 % (0.0-2.0); EOSINOPHIL # 0.3 TH/MM3 (0-0.4); EOSINOPHIL % 2.4 % (0.0-4.0); HEMATOCRIT 24.5 % (35.0-46.0); HEMO FLAGS DIFF FINAL; LYMPH % 9.6 % (9.0-44.0); LYMPHOCYTE # 1.1 TH/MM3 (1.0-4.8); MEAN CELL VOLUME 89.3 FL (80.0-100.0); MEAN CORPUSCULAR HEMOGLOBIN 28.1 PG (27.0-34.0); MEAN CORPUSCULAR HGB CONC 31.5 % (32.0-36.0); NEUT % 77.3 % (16.0-70.0); PLATELET COUNT 277 TH/MM3 (150-450); RED BLOOD COUNT 2.75 MIL/MM3 (4.00-5.30); RED CELL DISTRIBUTION WIDTH 16.3 % (11.6-17.2)
[2016-03-21 05:12] LABS: BICARBONATE 30.9 MEQ/L (21.0-32.0); MAGNESIUM 2.1 MG/DL (1.5-2.5); POTASSIUM 4.2 MEQ/L (3.5-5.1); TOTAL BILIRUBIN ADULT 0.3 MG/DL (0.2-1.0)
[2016-03-21] MEDS: FREE WATER G-TUBE SCH ×4 (05:14→20:00)
[2016-03-21] MEDS: NITROGLYCERIN 2% OINT 1 GM PACKET TOPICAL SCH ×3 (05:15→17:51)
[2016-03-21] MEDS: HEPARIN SODIUM - SQ 10,000 UNITS/ML VIAL SQ SCH ×3 (05:15→22:32)
[2016-03-21] MEDS: METOCLOPRAMIDE HCL 10 MG/2 ML VIAL IV PUSH SCH ×3 (05:15→22:31)
[2016-03-21 05:38] LABS: CALCIUM-PROTEIN CORRECTED 11.7 MG/DL (8.5-10.1)
[2016-03-21] MEDS: SODIUM CHLORIDE 0.9% FLUSH 5 ML FLUSH IV FLUSH SCH ×2 (08:37→20:08)
[2016-03-21] MEDS: SENNOSIDES 8.6 MG TAB PO SCH ×2 (08:37→20:08)
[2016-03-21] MEDS: PANTOPRAZOLE SODIUM 40 MG VIAL IV SCH (08:37)
[2016-03-21] MEDS: SODIUM CHLORIDE 0.9% FLUSH 5 ML FLUSH IVF SCH (08:38)
[2016-03-21] MEDS: INSULIN DETEMIR 100 UNITS/ML VIAL SQ SCH ×2 (08:38→20:10)
[2016-03-21] MEDS: DOCUSATE SODIUM 100 MG CAP PO SCH ×2 (08:38→20:08)
[2016-03-21] MEDS: WATER IV SCH ×2 (10:41)
[2016-03-21] MEDS: MICAFUNGIN IV SCH ×2 (10:41)
[2016-03-21] MEDS: DEXTROSE 5% IV SCH ×2 (10:41)
--- NOTE | 2016-03-21 14:48 | HHI.CCPN ---
Subjective Remarks/Hospital Course > 48 hour history of epigastric pain, vomiting. GB US reveals cholecystitis with stones in neck. MRCP - pancreatitis, ducts not dilated. Received stent into a bile duct secondary to stricture due to pancreatic head edema. [facility] re -consulted today 03/12 due to patient's tachypnea and abdominal distention. 03/13 - Patient appears significantly more acutely ill since I last saw her . Answers questions in 1-2 word responses. Resting in bed with quite distant added. Diffuse in all 4 quadrants abdominal stated to be Pain 10 out of 10. Tube feeds on hold. Decreased urine output noted. 03/14: Tmax 100. Currently 98.9. Status post -4 L hemodialysis yesterday. Breathing appears intermittently tachypneic and labored however she is more alert today and able to verbally complete sentences today. No bowel movement yesterday. Tube feeds currently off. 03/15: Tmax 102. Currently 100.5. Status post -3.5 L hemodialysis today. More lethargic. TPN to be initiated today. 03/16: Afebrile overnight. Started on TPN with elevated blood sugars. Currently on insulin drip. 2 large bowel movements yesterday. She is making adequate urine output. Pain better controlled today. White cell count has decreased slowly. Clinically appears better. 03/17: Afebrile. Blood sugars are stabilized. White cell count is stabilized. Positive BM yesterday. Abdomen less distended but abdominal pressure still in the low 20s. Arousable and follows commands. 03/18: Tmax 100.1. 2 BMs yesterday. Currently resting in bed. Abdominal pressures 17-19 overnight. Arousable and will follow commands. 03/19/16: Tmax 100.2. Positive BM. -3 L hemodialysis yesterday. Patient agitated overnight. Currently received Elliott and sedated. Complains of abdominal pain. Abdomen appears much less distended than previously. 03/20/16: Tmax 101.1. Currently 101. More lethargic this a.m. likely secondary to fevers. White cell count continues to trend downward. A.m. labs pending. Tolerating tube feed. Positive BM. Subjective 03/21/16: Tmax 101.1. Currently 101. White cell count has normalized. Tolerating tube feeding. Positive BM. Hemodialysis catheter removed yesterday. Objective Vital Signs Date Time Temp Pulse Resp B/P Pulse Ox O2 Delivery O2 Flow Rate FiO2 03/21/16 12:00 85 03/21/16 08:00 101.0 21 145/63 95 03/21/16 07:00 Nasal Cannula 2.00 Intake and Output 03/20/16 03/20/16 03/21/16 08:00 16:00 00:00 Intake Total 916 ml 1331 ml 1061 ml Output Total 1100 ml 950 ml 700 ml Balance -184 ml 381 ml 361 ml Result Diagram: 03/21/16 0400 03/21/16 0400 Other Results Microbiology Date/Time Procedure Status Source Growth 03/20/16 10:10 Aerobic Blood Culture - Preliminary Resulted Blood Peripheral NO GROWTH IN 1 DAY 03/20/16 10:10 Anaerobic Blood Culture - Preliminary Resulted Blood Peripheral NO GROWTH IN 1 DAY 03/20/16 09:00 Urine Culture - Preliminary Resulted Urine Catheterized Urine NO GROWTH IN 24 HOURS. Imaging Last Impressions Chest X-Ray 03/20/16 0600 Signed Impressions: Service Date/Time: Sunday, March 20, 2016 05:05 - CONCLUSION: Limited study by breathing motion artifact. Lungs are grossly clear. Maxwell Hsu Jr., MD Abdomen X-Ray 03/20/16 0600 Signed Impressions: Service Date/Time: Sunday, March 20, 2016 05:08 - CONCLUSION: Feeding tube tip within the duodenum. No dilated loops of bowel. Maxwell Hsu Jr., MD Lower Extremity Ultrasound 03/20/16 0000 Signed Impressions: Service Date/Time: Sunday, March 20, 2016 14:32 - CONCLUSION: No DVT of either lower extremity. Darrian Leary MD Abdomen/Pelvis CT 03/15/16 0000 Signed Impressions: Service Date/Time: Tuesday, March 15, 2016 15:26 - CONCLUSION: 1. Compared to the prior exam, the previously noted gas bubbles in the wall of the cecum have resolved. 2. Otherwise, no other new or significant changes compared to the prior study. Wilver Bond MD Head CT 03/14/16 0000 Signed Impressions: Service Date/Time: Monday, March 14, 2016 16:13 - CONCLUSION: Normal examination. Jere Toro MD Renal Ultrasound 03/13/16 0000 Signed Impressions: Service Date/Time: Sunday, March 13, 2016 16:39 - CONCLUSION: Unremarkable renal ultrasound. KSamuel Lundy MD GI Procedure 03/05/16 0000 Signed Impressions: Service Date/Time: Friday, March 04, 2016 23:02 - CONCLUSION: ERCP as above. Vidal Ye MD Gall Bladder Ultrasound 03/04/16 0000 Signed Impressions: Service Date/Time: Friday, March 04, 2016 19:36 - CONCLUSION: 1. Thick-walled gallbladder with some pericholecystic fluid and multiple gallstones in the region of the neck. The findings are suggestive of acute cholecystitis. Clinical correlation is recommended. 2. Fatty liver. 3. Minimal ascites within Polanco's pouch. 4. Poor visualization of the pancreas due to shadowing bowel gas. Odilon Butler MD Cholangiopancreatography MRI 03/04/16 0000 Signed Impressions: Service Date/Time: Friday, March 04, 2016 18:24 - CONCLUSION: 1. Extensive edema throughout the retroperitoneum and pancreas. No abscess or pseudocyst. 2. Tiny layering gallstones within the gallbladder. No discrete common bile duct stone. There is tapering of the common bile duct within the pancreatic head felt to be secondary to the edema within the pancreas. No discrete mass or choledocholithiasis. No intrahepatic or extrahepatic ductal dilatation. Maxwell Hsu Jr., MD Objective Remarks GENERAL: 66-year-old AA female, morbidly obese, critically ill appearing, currently resting in bed in no acute distress SKIN: Warm and dry. No rash HEAD: Atraumatic. Normocephalic. EYES: Pupils equal and round around 3 mm bilaterally and reactive. No scleral icterus. No injection or drainage. ENT: No nasal bleeding or discharge. Mucous membranes pink and moist. [place] fed tube in right nares NECK: Trachea midline. No JVD. Left hemodialysis catheter clean dry and intact. Right IJ CVL clean dry and intact CARDIOVASCULAR: Regular rate and rhythm. S1, S2. No S4. Without murmur RESPIRATORY: Distant breath sounds. Symmetrical excursion. Shallow respirations. Occasional grunting. GASTROINTESTINAL: Abdomen obese. Tender to palpation in all quadrants with no rebound. Voluntary guarding. No rigidity. Hypoactive bowel sounds MUSCULOSKELETAL: Extremities with trace bilateral lower extremity pedal edema/ anasarca-like improved from yesterday. No obvious deformities. NEUROLOGICAL: Awake and alert to person only. No obvious cranial nerve deficits. Motor grossly within normal limits. Five out of 5 muscle strength in the arms and legs. Currently mumbling this morning PSYCHIATRIC: Depressed mood and affect. Urinary Catheter: Yes Assessment to: Continue Azul insert reason: ICU Pt Getting Diuretics Vascular Central Line Catheter: Yes Assessment to: Continue Date of Insertion: Mar 14, 2016 Line: Central Venous Catheter Side: Right Location: Internal, Jugular A/P Problem List: (1) Severe sepsis with acute organ dysfunction ICD Code: A41.9 Status: Acute (2) Cholangitis ICD Code: K83.0 Status: Acute (3) Hypertensive urgency ICD Code: I16.0 Status: Acute Assessment and Plan Neuro/Psych: Pain management for acute pancreatitis Acetaminophen for fever Elliott 5/325 one every 4 hours/ morphine 2 mg every 3 hours hours when necessary for pain management CV: Severe sepsis from cholangitis and pancreatitis Hypertension by history Dyslipidemia Lactic acidosis - resolved - appears fluid overloaded, +18 kg since admission. -16.5 L past 5 dialysis sessions. Sunday/ and Sunday schedule - repeat Lactate 03/18 6 AM normal at 1.2 - Holding home medications lisinopril/HCTZ in light of acute kidney injury. - Noted elevated HDL/LDL/total cholesterol - triglycerides within normal limits Consider statin when appropriate once LFTs normalize - As needed labetalol, hydralazine, Nitropaste for blood pressure control of present - Previously on metoprolol 50 mg twice a day with some SVT during this hospitalization. Continue IV Lopressor 5 milligrams every 4 hours with scheduled Nitropaste 2 inches every 6 hours while nothing by mouth - 2-D echo EF 55 - 60%. Trace MRSamuel ANNIE 39 mmHg Resp: Acute respiratory insufficiency likely secondary to volume overload - Nasal cannula to maintain saturations greater than equal to 92% - Incentive spirometry while awake - Chest x-ray 03/14 after line placement reveals possible right lower lobe effusion/atelectasis. Chest x-ray 03/20 essentially clear with no acute cardiopulmonary findings GI: Status post ERCP/placement of stenting, bile duct secondary to stenosis Acute necrotizing Pancreatitis Possible pneumatosis intestinalis Transaminitis Hypo-albuminemia CT abdomen/pelvis 03/12 revealed multiple gallstones/worsening pancreatitis and possible pneumatosis intestinalis involving the cecum and the ascending colon Dr. Ceballos/general surgery following Discussed with Dr. Moulton yesterday. Agreed with hemodialysis and attempt to remove extra cellular fluid while maintaining intravascular volume. Difficult situation 14-24 intra-abdominal bladder pressures - Dr. Lucero/GI performed ERCP 03/04 with stent placement, distal common bile duct 8.5 Yi 7 cm secondary to stricture - Ultrasound revealed thickening in the gallbladder with pericholecystic fluid. Tiny gallstones noted. - MRCP revealed retroperitoneal edema, with edema causing potentially narrowing of the distal common bile duct Plan on repeating CT abdomen and pelvis 03/15 with oral contrast Test complete. Awaiting results. 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 lead worker of housekeeping and laundry sent appropriate paperwork to review. I called transfer center. If unavailable will contact [facility] for another option. Discussed with surgery 03/18. Currently with watchful waiting. He will contact specialist pancreatic surgeons at [facility] and [facility] to see if transfer appropriate at this time. Continue with rectal tube to LIWS Adjusting TPN see orders. Tube feeds with Nepro at 20 cc an hour per general surgery advanced per general surgery : Azul if needed for accurate I's and O's in critically ill patient Endo: Hyperglycemia of critical illness Algorithm 4. Currently at 5 units an hour Levemir increased 120 units twice a day Continue TPN initiated Renal: LOI - fluid overload. +16 kg since admission - Creatinine appears to be stabilizing - Avoid nephrotoxic drugs. Noted lisinopril/hctz held - Nephrology consultation. -Negative urine eosinophils renal ultrasound without obstruction - Follow BMP in a.m. Heme/Onc: History of breast cancer status post right mastectomy Leukocytosis Normocytic anemia CBC/coags ordered this a.m. Currently holding Letrozole 2.5 mg daily with elevated LFTs. Resume when clinically indicated ID: Possible necrotizing pancreatitis/pneumatosis intestinalis Day #8 micafungin/Merrem ID consult appreciated Pertinent cultures 03/04 - urine culture - negative 03/04 - blood cultures 2 - negative 03/07 - blood cultures 2 - negative 03/13 - blood cultures 2 -no growth 03/15 - urine culture -no growth Replete urine/blood cultures 2 ordered for today with persistent fevers. Hopefully we can remove hemodialysis catheter/central line soon FEN: Hypercalcemia Hypernatremia Hypophosphatemia Replace electrolytes as clinically indicated Currently on Nepro at 20 cc an hour general surgery TPN renal mix to be adjusted see orders MSK: Out of bed/PT evaluate and treat Access -Right IJ CVL day 7 placed 03/14 - Left IJ hemodialysis catheter placed 03/13 Prophylaxis - GI - Protonix - DVT - SCD/heparin Critical Care: The total critical care time was 35 minutes. Time to perform other separately billable procedures was not included in the critical care time. Rosalio Bowie MD Mar 21, 2016 14:48
[2016-03-21] MEDS: POTASSIUM CHLORIDE IV-CENTRAL SCH ×14 (15:15→20:09)
[2016-03-21] MEDS: [UNRECOGNIZED DRUG - OTHER] IV-CENTRAL SCH ×14 (15:15→20:09)
[2016-03-21] MEDS: POTASSIUM ACETATE IV-CENTRAL SCH ×14 (15:15→20:09)
--- NOTE | 2016-03-21 15:48 | HHI.PR ---
Subjective Subjective Notes She c/o abdominal pain. Has been having elevated temps. WBC improving. HD catheter removed. Objective Vitals/I&O Vital Signs Date Time Temp Pulse Resp B/P Pulse Ox O2 Delivery O2 Flow Rate FiO2 03/21/16 12:00 85 03/21/16 08:00 101.0 21 145/63 95 03/21/16 07:00 Nasal Cannula 2.00 Labs Laboratory Tests Test 03/21/16 04:00 White Blood Count 11.0 Red Blood Count 2.75 Hemoglobin 7.7 Hematocrit 24.5 Mean Corpuscular Volume 89.3 Mean Corpuscular Hemoglobin 28.1 Mean Corpuscular Hemoglobin 31.5 Concent Red Cell Distribution Width 16.3 Platelet Count 277 Mean Platelet Volume 9.3 Neutrophils (%) (Auto) 77.3 Lymphocytes (%) (Auto) 9.6 Monocytes (%) (Auto) 10.0 Eosinophils (%) (Auto) 2.4 Basophils (%) (Auto) 0.7 Neutrophils # (Auto) 8.5 Lymphocytes # (Auto) 1.1 Monocytes # (Auto) 1.1 Eosinophils # (Auto) 0.3 Basophils # (Auto) 0.1 CBC Comment DIFF FINAL Differential Comment Sodium Level 153 Potassium Level 4.2 Chloride Level 118 Carbon Dioxide Level 30.9 Anion Gap 4 Blood Urea Nitrogen 43 Creatinine 0.85 Estimat Glomerular Filtration 81 Rate Random Glucose 120 Calcium Level 11.6 Protein Corrected Calcium 11.7 Phosphorus Level 2.1 Magnesium Level 2.1 Total Bilirubin 0.3 Aspartate Amino Transf 84 (AST/SGOT) Alanine Aminotransferase 41 (ALT/SGPT) Alkaline Phosphatase 195 Total Protein 7.0 Albumin 2.0 Date/Time Procedure Status Source Growth 03/20/16 10:10 Aerobic Blood Culture - Preliminary Resulted Blood Peripheral NO GROWTH IN 1 DAY 03/20/16 10:10 Anaerobic Blood Culture - Preliminary Resulted Blood Peripheral NO GROWTH IN 1 DAY 03/20/16 09:00 Urine Culture - Preliminary Resulted Urine Catheterized Urine NO GROWTH IN 24 HOURS. Radiology Last Impressions GI Procedure 03/05/16 0000 Signed Impressions: Service Date/Time: Friday, March 04, 2016 23:02 - CONCLUSION: ERCP as above. Vidal Ye MD Chest X-Ray 03/04/16 1626 Signed Impressions: Service Date/Time: Friday, March 04, 2016 16:52 - CONCLUSION: 1. Mild cardiomegaly. 2. No acute focal pulmonary infiltrate or pulmonary vascular congestion. 3. Mild elevation of right hemidiaphragm. Odilon Butler MD Gall Bladder Ultrasound 03/04/16 0000 Signed Impressions: Service Date/Time: Friday, March 04, 2016 19:36 - CONCLUSION: 1. Thick-walled gallbladder with some pericholecystic fluid and multiple gallstones in the region of the neck. The findings are suggestive of acute cholecystitis. Clinical correlation is recommended. 2. Fatty liver. 3. Minimal ascites within Polanco's pouch. 4. Poor visualization of the pancreas due to shadowing bowel gas. Odilon Butler MD Cholangiopancreatography MRI 03/04/16 0000 Signed Impressions: Service Date/Time: Friday, March 04, 2016 18:24 - CONCLUSION: 1. Extensive edema throughout the retroperitoneum and pancreas. No abscess or pseudocyst. 2. Tiny layering gallstones within the gallbladder. No discrete common bile duct stone. There is tapering of the common bile duct within the pancreatic head felt to be secondary to the edema within the pancreas. No discrete mass or choledocholithiasis. No intrahepatic or extrahepatic ductal dilatation. Maxwell Hsu Jr., MD Narrative Exam Lethargic but awakes Abd: Soft, moderate upper abdominal ttp and RUQ ttp. Dobhoff in place tube feeds at 20cc/h. A/P Assessment and Plan 66 yo F with biliary obstruction secondary to pancreatic head edema s/p ERCP with stent, gallstone pancreatitis, acute cholecystitis. Necrotizing pancreatitis- stable. WBC improved. Increase tube feeds to 40cc/h. Cont rectal tube for now. Now having fevers. Cultures sent yesterday. HD cath removed. Monitor. Case d/w Dr. Bowie and bedside nurse. Tucker,Brian EDWARDS Mar 21, 2016 15:48
[2016-03-21] MEDS ORDERED: CALCITONIN SALMON INJ 400 UNITS/2 ML VIAL SQ ONE (16:00)
--- NOTE | 2016-03-21 17:09 | HHI.GIFU ---
Subjective Remarks Resting in bed. Having fevers of 101. Tolerating TF. + Stool. Still with significant abdominal tenderness. (Nakita Crowe) Objective Vitals I&O Vital Signs Date Time Temp Pulse Resp B/P Pulse Ox O2 Delivery O2 Flow Rate FiO2 03/21/16 16:00 101.0 101 21 160/71 95 03/21/16 16:00 111 03/21/16 14:00 90 03/21/16 12:00 99.8 91 16 132/61 94 03/21/16 12:00 85 03/21/16 10:00 90 03/21/16 08:00 101.0 103 21 145/63 95 03/21/16 08:00 103 03/21/16 07:00 95 Nasal Cannula 2.00 03/21/16 06:00 89 03/21/16 04:30 18 03/21/16 04:00 80 03/21/16 04:00 100.3 80 14 144/65 95 03/21/16 02:00 89 03/21/16 00:00 101.4 81 16 136/63 100 03/21/16 00:00 81 03/20/16 22:00 81 03/20/16 20:05 98 Nasal Cannula 2.00 03/20/16 20:00 100.4 87 14 155/68 100 03/20/16 20:00 87 03/20/16 19:00 100 Nasal Cannula 2.00 03/20/16 18:00 80 I/O 03/20/16 03/20/16 03/20/16 03/21/16 03/21/16 03/21/16 07:00 15:00 23:00 07:00 15:00 23:00 Intake Total 916 ml 1331 ml 1061 ml 1148 ml 1196 ml Output Total 1100 ml 950 ml 700 ml 750 ml 1100 ml Balance -184 ml 381 ml 361 ml 398 ml 96 ml IV Total 173 ml 293 ml 190 ml 273 ml 100 ml Tube Feeding 144 ml 166 ml 138 ml 137 ml 179 ml TPN/PPN 570 ml 672 ml 533 ml 538 ml 697 ml Other 29 ml 200 ml 200 ml 200 ml 220 ml Output Urine Total 800 ml 800 ml 600 ml 750 ml 1100 ml Stool Total 300 ml 0 ml Gastric Drainage Total 150 ml 100 ml 0 ml # Bowel Movements 0 Laboratory Laboratory Tests Test 03/21/16 04:00 White Blood Count 11.0 Red Blood Count 2.75 Hemoglobin 7.7 Hematocrit 24.5 Mean Corpuscular Volume 89.3 Mean Corpuscular Hemoglobin 28.1 Mean Corpuscular Hemoglobin 31.5 Concent Red Cell Distribution Width 16.3 Platelet Count 277 Mean Platelet Volume 9.3 Neutrophils (%) (Auto) 77.3 Lymphocytes (%) (Auto) 9.6 Monocytes (%) (Auto) 10.0 Eosinophils (%) (Auto) 2.4 Basophils (%) (Auto) 0.7 Neutrophils # (Auto) 8.5 Lymphocytes # (Auto) 1.1 Monocytes # (Auto) 1.1 Eosinophils # (Auto) 0.3 Basophils # (Auto) 0.1 CBC Comment DIFF FINAL Differential Comment Sodium Level 153 Potassium Level 4.2 Chloride Level 118 Carbon Dioxide Level 30.9 Anion Gap 4 Blood Urea Nitrogen 43 Creatinine 0.85 Estimat Glomerular Filtration 81 Rate Random Glucose 120 Calcium Level 11.6 Protein Corrected Calcium 11.7 Phosphorus Level 2.1 Magnesium Level 2.1 Total Bilirubin 0.3 Aspartate Amino Transf 84 (AST/SGOT) Alanine Aminotransferase 41 (ALT/SGPT) Alkaline Phosphatase 195 Total Protein 7.0 Albumin 2.0 Date/Time Procedure Status Source Growth 03/20/16 10:10 Aerobic Blood Culture - Preliminary Resulted Blood Peripheral NO GROWTH IN 1 DAY 03/20/16 10:10 Anaerobic Blood Culture - Preliminary Resulted Blood Peripheral NO GROWTH IN 1 DAY 03/20/16 09:00 Urine Culture - Preliminary Resulted Urine Catheterized Urine NO GROWTH IN 24 HOURS. Imaging Last Impressions Chest X-Ray 03/20/16 0600 Signed Impressions: Service Date/Time: Sunday, March 20, 2016 05:05 - CONCLUSION: Limited study by breathing motion artifact. Lungs are grossly clear. Maxwell Hsu Jr., MD Abdomen X-Ray 03/20/16 0600 Signed Impressions: Service Date/Time: Sunday, March 20, 2016 05:08 - CONCLUSION: Feeding tube tip within the duodenum. No dilated loops of bowel. Maxwell Hsu Jr., MD Lower Extremity Ultrasound 03/20/16 0000 Signed Impressions: Service Date/Time: Sunday, March 20, 2016 14:32 - CONCLUSION: No DVT of either lower extremity. Darrian Leary MD Abdomen/Pelvis CT 03/15/16 0000 Signed Impressions: Service Date/Time: Tuesday, March 15, 2016 15:26 - CONCLUSION: 1. Compared to the prior exam, the previously noted gas bubbles in the wall of the cecum have resolved. 2. Otherwise, no other new or significant changes compared to the prior study. Wilver Bond MD Head CT 03/14/16 0000 Signed Impressions: Service Date/Time: Monday, March 14, 2016 16:13 - CONCLUSION: Normal examination. Jere Toro MD Renal Ultrasound 03/13/16 0000 Signed Impressions: Service Date/Time: Sunday, March 13, 2016 16:39 - CONCLUSION: Unremarkable renal ultrasound. KSamuel Lundy MD GI Procedure 03/05/16 0000 Signed Impressions: Service Date/Time: Friday, March 04, 2016 23:02 - CONCLUSION: ERCP as above. Vidal Ye MD Gall Bladder Ultrasound 03/04/16 0000 Signed Impressions: Service Date/Time: Friday, March 04, 2016 19:36 - CONCLUSION: 1. Thick-walled gallbladder with some pericholecystic fluid and multiple gallstones in the region of the neck. The findings are suggestive of acute cholecystitis. Clinical correlation is recommended. 2. Fatty liver. 3. Minimal ascites within Polanco's pouch. 4. Poor visualization of the pancreas due to shadowing bowel gas. Odilon Butler MD Cholangiopancreatography MRI 03/04/16 0000 Signed Impressions: Service Date/Time: Friday, March 04, 2016 18:24 - CONCLUSION: 1. Extensive edema throughout the retroperitoneum and pancreas. No abscess or pseudocyst. 2. Tiny layering gallstones within the gallbladder. No discrete common bile duct stone. There is tapering of the common bile duct within the pancreatic head felt to be secondary to the edema within the pancreas. No discrete mass or choledocholithiasis. No intrahepatic or extrahepatic ductal dilatation. Maxwell Hsu Jr., MD Physical Exam NECK: Neck is supple, no JVD, no lymphadenopathy. CHEST: Resp. shallow, mildly tachypneic. CARDIAC: ST ABDOMEN: Soft, distended, diffuse tenderness, hypoactive bowel sounds. Rectal tube with liquid stool EXTREMITIES: Generalized edema. SKIN: Lethargic. (Nakita Crowe) Assessment and Plan Plan ASSESSMENT: - Severe diffuse ileus. Abdomen/Pelvis CT (03/15/16)-----> 1. Compared to the prior exam, the previously noted gas bubbles in the wall of the cecum have resolved. 2. Otherwise, no other new or significant changes compared to the prior study. S/P Relistor (03/16), colace, miralax, lactulose, senokot, reglan with good results. KUB (03/20/16)------> feeding tube in tip within the duodenum, no dilated loops of bowel. Rectal tube to LIWS, Abdomen distended, but soft. Tolerating TF so far and this is to be increased to 40cc/hr. Currently on Reglan, Senokot, Colace. - Severe acute gallstone pancreatitis. S/P ERCP (03/04/16)-----> stricture in the distal common bile duct, normal intrahepatic ducts, normal pancreatic ducts , patent cystic duct. S/P stent placement. Dobhoff, but clamped. Triglycerides 117. IgG [address] scan 03/15 with diffuse inflammatory changes surrounding the entire pancreas characteristic of pancreatitis. No new or significant changes are demonstrated compared to the prior study. TPN. IVF. Started on trickle feeds , so far tolerating. If worsening leukocytosis, plan is to rescan and take fluid sample to see if this is infected. If so, she will need to be transferred to tertiary for possible debridement. She is having persistent fevers up to 101.4, but her white count continues to improve. - Biliary obstruction/cholangitis secondary to pancreatic head edema. S/P ERCP (03/04/16)-----> stricture in the distal common bile duct, normal intrahepatic ducts, normal pancreatic ducts, patent cystic duct. S/P stent placement. Abx per ID. - Acute cholecystitis. GS following. - Acute sepsis, Leukocytosis. Abx per ID. - Acute renal failure. HD per renal. - Resp. Insuff. Resp. shallow/tachypneic. Diminished breath sounds. - Anemia. H/H 7.7/24.5. Recommendations - Post pyloric feedings, TF to be increased to 40cc/hr - [employer] recommends Glucerna 1.5 at GR of 50cc/hr - Wean tpn once tolerating tf - Cont. Reglan - Cont. Senokot - Cont. Colace - Rectal tube to LIWS - Abx per ID - S/P Relistor (03/16/16) - KUB in am - GS following - CCM following - Supportive care - Further recommendations to follow - Patient seen and examined by Dr. Gusman and myself and this note is written on his behalf. (Nakita Crowe) Physician Comments Patient was seen and examined, agree with above note. we will check labs, continue supportive care. KUB in am (Eli Gusman MD) Nakita Crowe Mar 21, 2016 17:09 Eli Gusman MD Mar 21, 2016 22:00
[2016-03-21] MEDS: ACETAMINOPHEN 325 MG TAB PO PRN (20:08)
[2016-03-22] VITALS (12 sets, daily range): BP systolic 119–203; BP diastolic 59–91; PULSE 68–118; RESP 18–36; TEMP 98.2–100.4; O2SAT 93–100
[2016-03-22] MEDS: NITROGLYCERIN 2% OINT 1 GM PACKET TOPICAL SCH ×4 (00:14→18:28)
[2016-03-22] MEDS: INSULIN NovoLIN REGULAR SUPPLEMENTAL SCALE SQ SCH ×5 (00:15→20:00)
[2016-03-22] MEDS: METOPROLOL TARTRATE 5 MG/5 ML VIAL IV PUSH SCH ×6 (00:15→21:07)
[2016-03-22] MEDS: MEROPENEM INJ 1,000 MG in SODIUM CHLORIDE 0.9% INJ 100 ML IV SCH ×3 (01:58→18:28)
[2016-03-22] MEDS: FREE WATER G-TUBE SCH ×6 (04:00→21:26)
[2016-03-22] MEDS: CHLORHEXIDINE GLUCONATE 2 % 1 PACK (2 CLOTHS) TOP SCH (04:00)
[2016-03-22 05:07] LABS: AUTOMATED NEUTROPHIL # 6.3 TH/MM3 (1.8-7.7); BASOPHIL # 0.1 TH/MM3 (0-0.2); BASOPHIL % 0.8 % (0.0-2.0); EOSINOPHIL # 0.1 TH/MM3 (0-0.4); EOSINOPHIL % 1.2 % (0.0-4.0); HEMATOCRIT 22.9 % (35.0-46.0); HEMO FLAGS DIFF FINAL; LYMPH % 15.7 % (9.0-44.0); LYMPHOCYTE # 1.4 TH/MM3 (1.0-4.8); MEAN CELL VOLUME 89.3 FL (80.0-100.0); MEAN CORPUSCULAR HEMOGLOBIN 28.5 PG (27.0-34.0); MEAN CORPUSCULAR HGB CONC 31.9 % (32.0-36.0); MONO % 12.8 % (0.0-8.0); NEUT % 69.5 % (16.0-70.0); PLATELET COUNT 232 TH/MM3 (150-450); RED BLOOD COUNT 2.57 MIL/MM3 (4.00-5.30); RED CELL DISTRIBUTION WIDTH 16.6 % (11.6-17.2)
[2016-03-22] MEDS: HEPARIN SODIUM - SQ 10,000 UNITS/ML VIAL SQ SCH ×3 (05:30→21:09)
[2016-03-22] MEDS: METOCLOPRAMIDE HCL 10 MG/2 ML VIAL IV PUSH SCH ×3 (05:30→21:09)
[2016-03-22 05:35] LABS: ALT (GPT) 41 U/L (10-53); ANION GAP 4 MEQ/L (5-15); AST (GOT) 79 U/L (15-37); BICARBONATE 30.7 MEQ/L (21.0-32.0); BLOOD UREA NITROGEN 36 MG/DL (7-18); CHLORIDE 118 MEQ/L (98-107); GLOMERULAR FILTRATION RATE 98 ML/MIN (>89); POTASSIUM 3.7 MEQ/L (3.5-5.1); SODIUM (NA) 153 MEQ/L (136-145)
[2016-03-22 05:37] LABS: ALKALINE PHOSPHATASE 198 U/L (45-117); TOTAL BILIRUBIN ADULT 0.3 MG/DL (0.2-1.0)
[2016-03-22] MEDS: SENNOSIDES 8.6 MG TAB PO SCH ×2 (08:32→21:00)
[2016-03-22] MEDS: INSULIN DETEMIR 100 UNITS/ML VIAL SQ SCH ×2 (08:32→21:08)
[2016-03-22] MEDS: PANTOPRAZOLE SODIUM 40 MG VIAL IV SCH (08:33)
[2016-03-22] MEDS: SODIUM CHLORIDE 0.9% FLUSH 5 ML FLUSH IVF SCH (08:34)
[2016-03-22] MEDS: SODIUM CHLORIDE 0.9% FLUSH 5 ML FLUSH IV FLUSH SCH ×2 (08:34→21:07)
[2016-03-22] MEDS: DOCUSATE SODIUM 100 MG CAP PO SCH ×2 (08:34→21:00)
[2016-03-22] MEDS: DEXTROSE 5% IV SCH ×2 (11:14)
[2016-03-22] MEDS: WATER IV SCH ×2 (11:14)
[2016-03-22] MEDS: MICAFUNGIN IV SCH ×2 (11:14)
[2016-03-22] MEDS ORDERED: POLYETHYLENE GLYCOL 17 GM PKG PO ONE (14:15)
--- NOTE | 2016-03-22 14:17 | HHI.CCPN ---
Subjective Remarks/Hospital Course > 48 hour history of epigastric pain, vomiting. GB US reveals cholecystitis with stones in neck. MRCP - pancreatitis, ducts not dilated. Received stent into a bile duct secondary to stricture due to pancreatic head edema. [facility] re -consulted today 03/12 due to patient's tachypnea and abdominal distention. 03/13 - Patient appears significantly more acutely ill since I last saw her . Answers questions in 1-2 word responses. Resting in bed with quite distant added. Diffuse in all 4 quadrants abdominal stated to be Pain 10 out of 10. Tube feeds on hold. Decreased urine output noted. 03/14: Tmax 100. Currently 98.9. Status post -4 L hemodialysis yesterday. Breathing appears intermittently tachypneic and labored however she is more alert today and able to verbally complete sentences today. No bowel movement yesterday. Tube feeds currently off. 03/15: Tmax 102. Currently 100.5. Status post -3.5 L hemodialysis today. More lethargic. TPN to be initiated today. 03/16: Afebrile overnight. Started on TPN with elevated blood sugars. Currently on insulin drip. 2 large bowel movements yesterday. She is making adequate urine output. Pain better controlled today. White cell count has decreased slowly. Clinically appears better. 03/17: Afebrile. Blood sugars are stabilized. White cell count is stabilized. Positive BM yesterday. Abdomen less distended but abdominal pressure still in the low 20s. Arousable and follows commands. 03/18: Tmax 100.1. 2 BMs yesterday. Currently resting in bed. Abdominal pressures 17-19 overnight. Arousable and will follow commands. 03/19/16: Tmax 100.2. Positive BM. -3 L hemodialysis yesterday. Patient agitated overnight. Currently received Staley and sedated. Complains of abdominal pain. Abdomen appears much less distended than previously. 03/20/16: Tmax 101.1. Currently 101. More lethargic this a.m. likely secondary to fevers. White cell count continues to trend downward. A.m. labs pending. Tolerating tube feed. Positive BM. 03/21/16: Tmax 101.1. Currently 101. White cell count has normalized. Tolerating tube feeding. Positive BM. Hemodialysis catheter removed yesterday. Subjective 03/22/16: Tmax 101.5. Currently 99. Currently out of bed to chair. White cell count is stabilized. Tolerating tube feeding as been increased to 40 cc an hour. No bowel movement 2 days Objective Vital Signs Date Time Temp Pulse Resp B/P Pulse Ox O2 Delivery O2 Flow Rate FiO2 03/22/16 10:00 68 03/22/16 08:00 99.0 18 137/65 99 03/22/16 07:00 Nasal Cannula 2.00 Intake and Output 03/21/16 03/21/16 03/21/16 07:59 15:59 23:59 Intake Total 1148 ml 1196 ml 1339 ml Output Total 750 ml 1100 ml 1350 ml Balance 398 ml 96 ml -11 ml Result Diagram: 03/22/16 0440 03/22/16 0440 Other Results Microbiology Date/Time Procedure Status Source Growth 03/20/16 10:10 Aerobic Blood Culture - Preliminary Resulted Blood Peripheral NO GROWTH IN 2 DAYS 03/20/16 10:10 Anaerobic Blood Culture - Preliminary Resulted Blood Peripheral NO GROWTH IN 2 DAYS 03/20/16 09:00 Urine Culture - Final Complete Urine Catheterized Urine NO GROWTH IN 48 HOURS. Imaging Last Impressions Chest X-Ray 03/20/16 0600 Signed Impressions: Service Date/Time: Sunday, March 20, 2016 05:05 - CONCLUSION: Limited study by breathing motion artifact. Lungs are grossly clear. Maxwell Hsu Jr., MD Abdomen X-Ray 03/20/16 0600 Signed Impressions: Service Date/Time: Sunday, March 20, 2016 05:08 - CONCLUSION: Feeding tube tip within the duodenum. No dilated loops of bowel. Maxwell Hsu Jr., MD Lower Extremity Ultrasound 03/20/16 0000 Signed Impressions: Service Date/Time: Sunday, March 20, 2016 14:32 - CONCLUSION: No DVT of either lower extremity. Darrian Leary MD Abdomen/Pelvis CT 03/15/16 0000 Signed Impressions: Service Date/Time: Tuesday, March 15, 2016 15:26 - CONCLUSION: 1. Compared to the prior exam, the previously noted gas bubbles in the wall of the cecum have resolved. 2. Otherwise, no other new or significant changes compared to the prior study. Wilver Bond MD Head CT 03/14/16 0000 Signed Impressions: Service Date/Time: Monday, March 14, 2016 16:13 - CONCLUSION: Normal examination. Jere Toro MD Renal Ultrasound 03/13/16 0000 Signed Impressions: Service Date/Time: Sunday, March 13, 2016 16:39 - CONCLUSION: Unremarkable renal ultrasound. Abisai Lundy MD GI Procedure 03/05/16 0000 Signed Impressions: Service Date/Time: Friday, March 04, 2016 23:02 - CONCLUSION: ERCP as above. Vidal Ye MD Gall Bladder Ultrasound 03/04/16 0000 Signed Impressions: Service Date/Time: Friday, March 04, 2016 19:36 - CONCLUSION: 1. Thick-walled gallbladder with some pericholecystic fluid and multiple gallstones in the region of the neck. The findings are suggestive of acute cholecystitis. Clinical correlation is recommended. 2. Fatty liver. 3. Minimal ascites within Polanco's pouch. 4. Poor visualization of the pancreas due to shadowing bowel gas. Odilon Butler MD Cholangiopancreatography MRI 03/04/16 0000 Signed Impressions: Service Date/Time: Friday, March 04, 2016 18:24 - CONCLUSION: 1. Extensive edema throughout the retroperitoneum and pancreas. No abscess or pseudocyst. 2. Tiny layering gallstones within the gallbladder. No discrete common bile duct stone. There is tapering of the common bile duct within the pancreatic head felt to be secondary to the edema within the pancreas. No discrete mass or choledocholithiasis. No intrahepatic or extrahepatic ductal dilatation. Maxwell Hsu Jr., MD Objective Remarks GENERAL: 66-year-old AA female, morbidly obese, critically ill appearing, currently resting in bed in no acute distress SKIN: Warm and dry. No rash HEAD: Atraumatic. Normocephalic. EYES: Pupils equal and round around 3 mm bilaterally and reactive. No scleral icterus. No injection or drainage. ENT: No nasal bleeding or discharge. Mucous membranes pink and moist. Keofed tube in right nares NECK: Trachea midline. No JVD. Right IJ CVL clean dry and intact CARDIOVASCULAR: Regular rate and rhythm. S1, S2. No S4. Without murmur RESPIRATORY: Distant breath sounds. Symmetrical excursion. Shallow respirations. Occasional grunting. GASTROINTESTINAL: Abdomen obese. Less tender to palpation in all quadrants. Hypoactive bowel sounds MUSCULOSKELETAL: Extremities with trace bilateral lower extremity pedal edema/ anasarca-like improved since admission. No obvious deformities. NEUROLOGICAL: Awake and alert to person and place. No obvious cranial nerve deficits. Motor grossly within normal limits. Five out of 5 muscle strength in the arms and legs. Currently annunciating better today PSYCHIATRIC: Depressed mood and affect. Urinary Catheter: Yes Assessment to: Continue Azul insert reason: ICU Pt Getting Diuretics Vascular Central Line Catheter: Yes Assessment to: Continue Date of Insertion: Mar 14, 2016 Line: Central Venous Catheter Side: Right Location: Internal, Jugular A/P Problem List: (1) Severe sepsis with acute organ dysfunction ICD Code: A41.9 Status: Acute (2) Cholangitis ICD Code: K83.0 Status: Acute (3) Hypertensive urgency ICD Code: I16.0 Status: Acute Assessment and Plan Neuro/Psych: Pain management for acute pancreatitis Acetaminophen for fever Staley 5/325 one every 4 hours/ morphine 2 mg every 3 hours hours when necessary for pain management CV: Severe sepsis from cholangitis and pancreatitis Hypertension by history Dyslipidemia - Holding home medications lisinopril/HCTZ in light of acute kidney injury. - Noted elevated HDL/LDL/total cholesterol - triglycerides within normal limits Consider statin when appropriate once LFTs normalize - As needed labetalol, hydralazine, Nitropaste for blood pressure control of present - Previously on metoprolol 50 mg twice a day with some SVT during this hospitalization. Continue IV Lopressor 5 milligrams every 4 hours with scheduled Nitropaste 2 inches every 6 hours while nothing by mouth - 2-D echo EF 55 - 60%. Trace MRSamuel ANNIE 39 mmHg Resp: Acute respiratory insufficiency likely secondary to volume overload - Nasal cannula to maintain saturations greater than equal to 92% - Incentive spirometry while awake - Chest x-ray 03/14 after line placement reveals possible right lower lobe effusion/atelectasis. Chest x-ray 03/20 essentially clear with no acute cardiopulmonary findings GI: Status post ERCP/placement of stenting, bile duct secondary to stenosis Acute necrotizing Pancreatitis Possible pneumatosis intestinalis Transaminitis Hypo-albuminemia CT abdomen/pelvis 03/12 revealed multiple gallstones/worsening pancreatitis and possible pneumatosis intestinalis involving the cecum and the ascending colon Dr. Ceballos/general surgery following Discussed with Dr. Moulton yesterday. Agreed with hemodialysis and attempt to remove extra cellular fluid while maintaining intravascular volume. Difficult situation 14-24 intra-abdominal bladder pressures - Dr. Lucero/GI performed ERCP 03/04 with stent placement, distal common bile duct 8.5 Peruvian 7 cm secondary to stricture - Ultrasound revealed thickening in the gallbladder with pericholecystic fluid. Tiny gallstones noted. 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 mission worker sent appropriate paperwork to review. I called transfer center. If unavailable will contact [facility] for another option. Discussed with surgery 03/18. Currently with watchful waiting. He will contact specialist pancreatic surgeons at [facility] and [facility] to see if transfer appropriate at this time. Continue with rectal tube to LIWS Adjusting TPN see orders. Tube feeds with Nepro at 40 cc an hour per general surgery advanced per general surgery : Azul if needed for accurate I's and O's in critically ill patient Endo: Hyperglycemia of critical illness Sliding-scale insulin/high with Accu-Cheks every 4 hours. Levemir 100 units twice a day Continue TPN initiated Renal: LOI - resolved - Creatinine appears to be stabilizing - Avoid nephrotoxic drugs. Noted lisinopril/hctz held - Nephrology consultation following when necessary as needed -Negative urine eosinophils renal ultrasound without obstruction - Follow BMP in a.m. Heme/Onc: History of breast cancer status post right mastectomy Leukocytosis Normocytic anemia CBC/coags ordered this a.m. Currently holding Letrozole 2.5 mg daily with elevated LFTs. Resume when clinically indicated ID: Possible necrotizing pancreatitis/pneumatosis intestinalis Day #9 micafungin/Merrem ID consult appreciated Pertinent cultures 03/04 - urine culture - negative 03/04 - blood cultures 2 - negative 03/07 - blood cultures 2 - negative 03/13 - blood cultures 2 -no growth 03/15 - urine culture -no growth 1/2 - blood cultures 2 - no growth 1/2 - urine cultures - negative Hopefully we can remove central line tomorrow FEN: Hypercalcemia Hypernatremia Hypophosphatemia Replace electrolytes as clinically indicated 30 mmol K-Phos 1. 1 dose of calcitonin for elevated calcium. Daily calcium is removed from TPN. Currently on Nepro at 40 cc an hour general surgery TPN renal mix to be adjusted see orders MSK: Out of bed/PT evaluate and treat Access -Right IJ CVL day placed 03/14 - Left IJ hemodialysis catheter placed 03/13 and removed 03/20 Prophylaxis - GI - Protonix - DVT - SCD/heparin Critical Care: The total critical care time was 35 minutes. Time to perform other separately billable procedures was not included in the critical care time. Rosalio Bowie MD Mar 22, 2016 14:17
[2016-03-22] MEDS: ACETAMINOPHEN/HYDROcodone 325 MG/5 MG TAB PO PRN (14:35)
[2016-03-22] MEDS ORDERED: CALCITONIN SALMON INJ 400 UNITS/2 ML VIAL SQ ONE (15:00)
[2016-03-22] MEDS: [UNRECOGNIZED DRUG - OTHER] IV-CENTRAL SCH ×14 (15:15→17:07)
[2016-03-22] MEDS: POTASSIUM ACETATE IV-CENTRAL SCH ×14 (15:15→17:07)
[2016-03-22] MEDS: POTASSIUM CHLORIDE IV-CENTRAL SCH ×14 (15:15→17:07)
--- NOTE | 2016-03-22 15:17 | HHI.PR ---
Subjective Subjective Notes She appears weak and ill. Tolerating enteral feeding at 40cc/h. No fevers since last night. Objective Vitals/I&O Vital Signs Date Time Temp Pulse Resp B/P Pulse Ox O2 Delivery O2 Flow Rate FiO2 03/22/16 10:00 68 03/22/16 08:00 99.0 18 137/65 99 03/22/16 07:00 Nasal Cannula 2.00 Labs Laboratory Tests Test 03/22/16 04:40 White Blood Count 9.0 Red Blood Count 2.57 Hemoglobin 7.3 Hematocrit 22.9 Mean Corpuscular Volume 89.3 Mean Corpuscular Hemoglobin 28.5 Mean Corpuscular Hemoglobin 31.9 Concent Red Cell Distribution Width 16.6 Platelet Count 232 Mean Platelet Volume 9.2 Neutrophils (%) (Auto) 69.5 Lymphocytes (%) (Auto) 15.7 Monocytes (%) (Auto) 12.8 Eosinophils (%) (Auto) 1.2 Basophils (%) (Auto) 0.8 Neutrophils # (Auto) 6.3 Lymphocytes # (Auto) 1.4 Monocytes # (Auto) 1.2 Eosinophils # (Auto) 0.1 Basophils # (Auto) 0.1 CBC Comment DIFF FINAL Differential Comment Sodium Level 153 Potassium Level 3.7 Chloride Level 118 Carbon Dioxide Level 30.7 Anion Gap 4 Blood Urea Nitrogen 36 Creatinine 0.72 Estimat Glomerular Filtration 98 Rate Random Glucose 159 Calcium Level 10.9 Phosphorus Level 1.8 Magnesium Level 2.0 Total Bilirubin 0.3 Aspartate Amino Transf 79 (AST/SGOT) Alanine Aminotransferase 41 (ALT/SGPT) Alkaline Phosphatase 198 Total Protein 7.0 Albumin 1.9 Date/Time Procedure Status Source Growth 03/20/16 10:10 Aerobic Blood Culture - Preliminary Resulted Blood Peripheral NO GROWTH IN 2 DAYS 03/20/16 10:10 Anaerobic Blood Culture - Preliminary Resulted Blood Peripheral NO GROWTH IN 2 DAYS 03/20/16 09:00 Urine Culture - Final Complete Urine Catheterized Urine NO GROWTH IN 48 HOURS. Radiology Last Impressions GI Procedure 03/05/16 0000 Signed Impressions: Service Date/Time: Friday, March 04, 2016 23:02 - CONCLUSION: ERCP as above. Vidal Ye MD Chest X-Ray 03/04/16 1626 Signed Impressions: Service Date/Time: Friday, March 04, 2016 16:52 - CONCLUSION: 1. Mild cardiomegaly. 2. No acute focal pulmonary infiltrate or pulmonary vascular congestion. 3. Mild elevation of right hemidiaphragm. Odilon Butler MD Gall Bladder Ultrasound 03/04/16 0000 Signed Impressions: Service Date/Time: Friday, March 04, 2016 19:36 - CONCLUSION: 1. Thick-walled gallbladder with some pericholecystic fluid and multiple gallstones in the region of the neck. The findings are suggestive of acute cholecystitis. Clinical correlation is recommended. 2. Fatty liver. 3. Minimal ascites within Polanco's pouch. 4. Poor visualization of the pancreas due to shadowing bowel gas. Odilon Butler MD Cholangiopancreatography MRI 03/04/16 0000 Signed Impressions: Service Date/Time: Friday, March 04, 2016 18:24 - CONCLUSION: 1. Extensive edema throughout the retroperitoneum and pancreas. No abscess or pseudocyst. 2. Tiny layering gallstones within the gallbladder. No discrete common bile duct stone. There is tapering of the common bile duct within the pancreatic head felt to be secondary to the edema within the pancreas. No discrete mass or choledocholithiasis. No intrahepatic or extrahepatic ductal dilatation. Maxwell Hsu Jr., MD Narrative Exam Lethargic but awakes Abd: Soft, moderate upper abdominal ttp and RUQ ttp. Dobhoff in place tube feeds at 40cc/h. A/P Assessment and Plan 66 yo F with biliary obstruction secondary to pancreatic head edema s/p ERCP with stent, gallstone pancreatitis, acute cholecystitis. Necrotizing pancreatitis- stable. WBC continues to improve. Tolerating enteral feeding- slowly advance to goal. Recent fevers- blood and urine cx from two days ago neg thus far. No fevers since last night. Brian Ceballos MD Mar 22, 2016 15:17
[2016-03-22] MEDS ORDERED: POTASSIUM PHOSPHATE INJ 30 MMOL in SODIUM CHLOR 0.9% 250 ML INJ 250 ML IV ONE (16:00)
--- NOTE | 2016-03-22 16:28 | HHI.GIFU ---
Subjective Remarks Resting in bed. Lethargic. Low grade fevers- 99. Tolerating TF. (Nakita Crowe) Objective Vitals I&O Vital Signs Date Time Temp Pulse Resp B/P Pulse Ox O2 Delivery O2 Flow Rate FiO2 03/22/16 10:00 68 03/22/16 08:00 80 03/22/16 08:00 99.0 80 18 137/65 99 03/22/16 07:00 98 Nasal Cannula 2.00 03/22/16 06:00 85 03/22/16 04:00 78 03/22/16 04:00 99.5 78 20 129/60 100 03/22/16 02:00 87 03/22/16 00:00 84 03/22/16 00:00 100.4 84 18 119/59 96 03/21/16 22:00 86 03/21/16 20:36 93 Nasal Cannula 3.00 03/21/16 20:10 91 Nasal Cannula 3.00 03/21/16 20:00 116 03/21/16 20:00 101.5 116 28 165/69 92 03/21/16 19:00 91 Nasal Cannula 2.00 03/21/16 18:00 115 I/O 03/21/16 03/21/16 03/21/16 03/22/16 03/22/16 03/22/16 06:59 14:59 22:59 06:59 14:59 22:59 Intake Total 1148 ml 1196 ml 1339 ml 1260 ml Output Total 750 ml 1100 ml 1350 ml 700 ml Balance 398 ml 96 ml -11 ml 560 ml IV Total 273 ml 100 ml 173 ml 159 ml Tube Feeding 137 ml 179 ml 387 ml 218 ml TPN/PPN 538 ml 697 ml 579 ml 483 ml Other 200 ml 220 ml 200 ml 400 ml Output Urine Total 750 ml 1100 ml 1350 ml 700 ml Stool Total 0 ml 0 ml 0 ml Gastric Drainage Total 0 ml # Bowel Movements 0 Laboratory Laboratory Tests Test 03/22/16 04:40 White Blood Count 9.0 Red Blood Count 2.57 Hemoglobin 7.3 Hematocrit 22.9 Mean Corpuscular Volume 89.3 Mean Corpuscular Hemoglobin 28.5 Mean Corpuscular Hemoglobin 31.9 Concent Red Cell Distribution Width 16.6 Platelet Count 232 Mean Platelet Volume 9.2 Neutrophils (%) (Auto) 69.5 Lymphocytes (%) (Auto) 15.7 Monocytes (%) (Auto) 12.8 Eosinophils (%) (Auto) 1.2 Basophils (%) (Auto) 0.8 Neutrophils # (Auto) 6.3 Lymphocytes # (Auto) 1.4 Monocytes # (Auto) 1.2 Eosinophils # (Auto) 0.1 Basophils # (Auto) 0.1 CBC Comment DIFF FINAL Differential Comment Sodium Level 153 Potassium Level 3.7 Chloride Level 118 Carbon Dioxide Level 30.7 Anion Gap 4 Blood Urea Nitrogen 36 Creatinine 0.72 Estimat Glomerular Filtration 98 Rate Random Glucose 159 Calcium Level 10.9 Phosphorus Level 1.8 Magnesium Level 2.0 Total Bilirubin 0.3 Aspartate Amino Transf 79 (AST/SGOT) Alanine Aminotransferase 41 (ALT/SGPT) Alkaline Phosphatase 198 Total Protein 7.0 Albumin 1.9 Date/Time Procedure Status Source Growth 03/20/16 10:10 Aerobic Blood Culture - Preliminary Resulted Blood Peripheral NO GROWTH IN 2 DAYS 03/20/16 10:10 Anaerobic Blood Culture - Preliminary Resulted Blood Peripheral NO GROWTH IN 2 DAYS 03/20/16 09:00 Urine Culture - Final Complete Urine Catheterized Urine NO GROWTH IN 48 HOURS. Imaging Last Impressions Chest X-Ray 03/20/16 0600 Signed Impressions: Service Date/Time: Sunday, March 20, 2016 05:05 - CONCLUSION: Limited study by breathing motion artifact. Lungs are grossly clear. Maxwell Hsu Jr., MD Abdomen X-Ray 03/20/16 0600 Signed Impressions: Service Date/Time: Sunday, March 20, 2016 05:08 - CONCLUSION: Feeding tube tip within the duodenum. No dilated loops of bowel. Maxwell Hsu Jr., MD Lower Extremity Ultrasound 03/20/16 0000 Signed Impressions: Service Date/Time: Sunday, March 20, 2016 14:32 - CONCLUSION: No DVT of either lower extremity. Darrian Leary MD Abdomen/Pelvis CT 03/15/16 0000 Signed Impressions: Service Date/Time: Tuesday, March 15, 2016 15:26 - CONCLUSION: 1. Compared to the prior exam, the previously noted gas bubbles in the wall of the cecum have resolved. 2. Otherwise, no other new or significant changes compared to the prior study. Wilver Bond MD Head CT 03/14/16 0000 Signed Impressions: Service Date/Time: Monday, March 14, 2016 16:13 - CONCLUSION: Normal examination. Jere Toro MD Renal Ultrasound 03/13/16 0000 Signed Impressions: Service Date/Time: Sunday, March 13, 2016 16:39 - CONCLUSION: Unremarkable renal ultrasound. Abisai Lundy MD GI Procedure 03/05/16 0000 Signed Impressions: Service Date/Time: Friday, March 04, 2016 23:02 - CONCLUSION: ERCP as above. Vidal Ye MD Gall Bladder Ultrasound 03/04/16 0000 Signed Impressions: Service Date/Time: Friday, March 04, 2016 19:36 - CONCLUSION: 1. Thick-walled gallbladder with some pericholecystic fluid and multiple gallstones in the region of the neck. The findings are suggestive of acute cholecystitis. Clinical correlation is recommended. 2. Fatty liver. 3. Minimal ascites within Polanco's pouch. 4. Poor visualization of the pancreas due to shadowing bowel gas. Odilon Butler MD Cholangiopancreatography MRI 03/04/16 0000 Signed Impressions: Service Date/Time: Friday, March 04, 2016 18:24 - CONCLUSION: 1. Extensive edema throughout the retroperitoneum and pancreas. No abscess or pseudocyst. 2. Tiny layering gallstones within the gallbladder. No discrete common bile duct stone. There is tapering of the common bile duct within the pancreatic head felt to be secondary to the edema within the pancreas. No discrete mass or choledocholithiasis. No intrahepatic or extrahepatic ductal dilatation. Maxwell Hsu Jr., MD Physical Exam NECK: Neck is supple, no JVD, no lymphadenopathy. CHEST: Resp. shallow, mildly tachypneic. CARDIAC: ST ABDOMEN: Soft, distended, diffuse tenderness, hypoactive bowel sounds. Rectal tube with liquid stool EXTREMITIES: Generalized edema. SKIN: Lethargic. (Nakita CroweP) Assessment and Plan Plan ASSESSMENT: - Severe diffuse ileus. Abdomen/Pelvis CT (03/15/16)-----> 1. Compared to the prior exam, the previously noted gas bubbles in the wall of the cecum have resolved. 2. Otherwise, no other new or significant changes compared to the prior study. S/P Relistor (03/16), colace, miralax, lactulose, senokot, reglan with good results. KUB (03/20/16)------> feeding tube in tip within the duodenum, no dilated loops of bowel. Rectal tube to LIWS, Abdomen distended, but soft. Tolerating TF so far and this is to be increased to 40cc/hr. Currently on Reglan, Senokot, Colace. Will d/c rectal tube and see how she does with this. Tolerating TF, will start to wean TPN. - Severe acute gallstone pancreatitis. S/P ERCP (03/04/16)-----> stricture in the distal common bile duct, normal intrahepatic ducts, normal pancreatic ducts , patent cystic duct. S/P stent placement. Dobhoff, but clamped. Triglycerides 117. IgG [address] scan 03/15 with diffuse inflammatory changes surrounding the entire pancreas characteristic of pancreatitis. No new or significant changes are demonstrated compared to the prior study. Improving. WBC improving. Fevers improving. Tolerating post pyloric feedings at GR, will start to wean TPN. IVF. - Biliary obstruction/cholangitis secondary to pancreatic head edema. S/P ERCP (03/04/16)-----> stricture in the distal common bile duct, normal intrahepatic ducts, normal pancreatic ducts, patent cystic duct. S/P stent placement. Abx per ID. - Acute cholecystitis. S/P GS evaluation. - Acute sepsis, Leukocytosis. Abx per ID. Improving. - Acute renal failure. Resolved. Off HD. - Resp. Insuff. Resp. shallow/tachypneic. Diminished breath sounds. - Anemia. H/H 7.3/22.9 Recommendations - Nepro at 40cc/hr - Decrease TPN to 40cc/hr - D/C rectal tube - Cont. Reglan - Cont. Senokot - Cont. Colace - Abx per ID - S/P Relistor (03/16/16) - GS following - [facility] following - Supportive care - Further recommendations to follow - Patient seen and examined by Dr. Gusman and myself and this note is written on his behalf. (Nakita Crowe) Physician Comments Patient was seen and examined, agree with above note and plan, labs for AM ( Eli Gusman MD) Nakita Crowe Mar 22, 2016 16:28 Eli Gusman MD Mar 22, 2016 20:56
[2016-03-22] MEDS: MORPHINE SULFATE 4 MG/ML INJ IV PUSH PRN (21:10)
[2016-03-23] VITALS (14 sets, daily range): BP systolic 115–146; BP diastolic 55–66; PULSE 74–98; RESP 18–32; TEMP 98.7–101.2; O2SAT 96–100
[2016-03-23] MEDS: NITROGLYCERIN 2% OINT 1 GM PACKET TOPICAL SCH ×5 (01:40→23:43)
[2016-03-23] MEDS: MEROPENEM INJ 1,000 MG in SODIUM CHLORIDE 0.9% INJ 100 ML IV SCH ×3 (01:40→18:17)
[2016-03-23] MEDS: FREE WATER G-TUBE SCH ×7 (01:40→23:43)
[2016-03-23] MEDS: METOPROLOL TARTRATE 5 MG/5 ML VIAL IV PUSH SCH ×7 (01:40→23:43)
[2016-03-23] MEDS: MORPHINE SULFATE 4 MG/ML INJ IV PUSH PRN ×2 (01:41→21:54)
[2016-03-23] MEDS: CHLORHEXIDINE GLUCONATE 2 % 1 PACK (2 CLOTHS) TOP SCH (04:00)
[2016-03-23] MEDS: METOCLOPRAMIDE HCL 10 MG/2 ML VIAL IV PUSH SCH ×3 (05:17→21:16)
[2016-03-23] MEDS: HEPARIN SODIUM - SQ 10,000 UNITS/ML VIAL SQ SCH ×3 (05:17→21:16)
[2016-03-23 05:28] LABS: HEMATOCRIT 24.7 % (35.0-46.0); MEAN CELL VOLUME 90.1 FL (80.0-100.0); MEAN CORPUSCULAR HEMOGLOBIN 28.1 PG (27.0-34.0); MEAN CORPUSCULAR HGB CONC 31.2 % (32.0-36.0); PLATELET COUNT 232 TH/MM3 (150-450); RED BLOOD COUNT 2.74 MIL/MM3 (4.00-5.30); RED CELL DISTRIBUTION WIDTH 16.9 % (11.6-17.2); WHITE BLOOD COUNT 9.8 TH/MM3 (4.0-11.0)
[2016-03-23 05:39] LABS: HEMO FLAGS AUTO DIFF
[2016-03-23 05:53] LABS: ALKALINE PHOSPHATASE 202 U/L (45-117); ALT (GPT) 46 U/L (10-53); ANION GAP 3 MEQ/L (5-15); AST (GOT) 82 U/L (15-37); BICARBONATE 32.4 MEQ/L (21.0-32.0); BLOOD UREA NITROGEN 33 MG/DL (7-18); CHLORIDE 121 MEQ/L (98-107); GLOMERULAR FILTRATION RATE 113 ML/MIN (>89); MAGNESIUM 2.1 MG/DL (1.5-2.5); POTASSIUM 4.6 MEQ/L (3.5-5.1); TOTAL BILIRUBIN ADULT 0.3 MG/DL (0.2-1.0)
[2016-03-23 06:01] LABS: SODIUM (NA) 156 MEQ/L (136-145)
[2016-03-23] MEDS: INSULIN NovoLIN REGULAR SUPPLEMENTAL SCALE SQ SCH ×7 (06:07→23:28)
[2016-03-23] MEDS: ACETAMINOPHEN/HYDROcodone 325 MG/5 MG TAB PO PRN (07:23)
[2016-03-23 07:24] LABS: BANDS 10 % (0-6); BASOPHILS 1 % (0-2); EOSINOPHILS 1 % (0-4); NEUTROPHIL # MANUAL DIFF 8.3 TH/MM3 (1.8-7.7); PLATELET ESTIMATE SMEAR NORMAL (NORMAL); PLATELET MORPHOLOGY NORMAL (NORMAL); POLYS (SEG NEUTROPHILS) 75 % (16-70); SCAN/DIFF FINAL DIFF MANUAL; WBC DIFF SAMPLE 100
[2016-03-23 07:25] LABS: KERATOCYTES OCC (NORMAL)
[2016-03-23] MEDS: SODIUM CHLORIDE 0.9% FLUSH 5 ML FLUSH IVF SCH (09:00)
[2016-03-23] MEDS: SODIUM CHLORIDE 0.9% FLUSH 5 ML FLUSH IV FLUSH SCH ×2 (09:00→20:38)
[2016-03-23] MEDS: DOCUSATE SODIUM 100 MG CAP PO SCH ×2 (10:03→20:38)
[2016-03-23] MEDS: SENNOSIDES 8.6 MG TAB PO SCH ×2 (10:03→20:39)
[2016-03-23] MEDS: LACTULOSE SYRUP 20 GM/30 ML CUP PO SCH (10:04)
[2016-03-23] MEDS: INSULIN DETEMIR 100 UNITS/ML VIAL SQ SCH ×2 (10:05→20:39)
[2016-03-23] MEDS: PANTOPRAZOLE SODIUM 40 MG VIAL IV SCH (10:05)
--- NOTE | 2016-03-23 10:45 | HHI.CCPN ---
Subjective Remarks/Hospital Course > 48 hour history of epigastric pain, vomiting. GB US reveals cholecystitis with stones in neck. MRCP - pancreatitis, ducts not dilated. Received stent into a bile duct secondary to stricture due to pancreatic head edema. [facility] re -consulted today 03/12 due to patient's tachypnea and abdominal distention. 03/13 - Patient appears significantly more acutely ill since I last saw her . Answers questions in 1-2 word responses. Resting in bed with quite distant added. Diffuse in all 4 quadrants abdominal stated to be Pain 10 out of 10. Tube feeds on hold. Decreased urine output noted. 03/14: Tmax 100. Currently 98.9. Status post -4 L hemodialysis yesterday. Breathing appears intermittently tachypneic and labored however she is more alert today and able to verbally complete sentences today. No bowel movement yesterday. Tube feeds currently off. 03/15: Tmax 102. Currently 100.5. Status post -3.5 L hemodialysis today. More lethargic. TPN to be initiated today. 03/16: Afebrile overnight. Started on TPN with elevated blood sugars. Currently on insulin drip. 2 large bowel movements yesterday. She is making adequate urine output. Pain better controlled today. White cell count has decreased slowly. Clinically appears better. 03/17: Afebrile. Blood sugars are stabilized. White cell count is stabilized. Positive BM yesterday. Abdomen less distended but abdominal pressure still in the low 20s. Arousable and follows commands. 03/18: Tmax 100.1. 2 BMs yesterday. Currently resting in bed. Abdominal pressures 17-19 overnight. Arousable and will follow commands. 03/19/16: Tmax 100.2. Positive BM. -3 L hemodialysis yesterday. Patient agitated overnight. Currently received [place] and sedated. Complains of abdominal pain. Abdomen appears much less distended than previously. 03/20/16: Tmax 101.1. Currently 101. More lethargic this a.m. likely secondary to fevers. White cell count continues to trend downward. A.m. labs pending. Tolerating tube feed. Positive BM. 03/21/16: Tmax 101.1. Currently 101. White cell count has normalized. Tolerating tube feeding. Positive BM. Hemodialysis catheter removed yesterday. 03/22/16: Tmax 101.5. Currently 99. Currently out of bed to chair. White cell count is stabilized. Tolerating tube feeding as been increased to 40 cc an hour. No bowel movement 2 days Subjective 03/23/16: Tmax 101.2. Currently afebrile. Resting in bed. Tube feeds are stable at 40 cc an hour. Positive BM. More awake and alert today. Objective Vital Signs Date Time Temp Pulse Resp B/P Pulse Ox O2 Delivery O2 Flow Rate FiO2 03/23/16 10:00 89 03/23/16 07:00 96 Nasal Cannula 6.00 03/23/16 04:00 100.0 19 115/56 Intake and Output 03/22/16 03/22/16 03/23/16 08:00 16:00 00:00 Intake Total 1260 ml 1612 ml 1280 ml Output Total 700 ml 1290 ml 1050 ml Balance 560 ml 322 ml 230 ml Result Diagram: 03/23/16 0515 03/23/16 0515 Other Results Microbiology Date/Time Procedure Status Source Growth 03/20/16 10:10 Aerobic Blood Culture - Preliminary Resulted Blood Peripheral NO GROWTH IN 2 DAYS 03/20/16 10:10 Anaerobic Blood Culture - Preliminary Resulted Blood Peripheral NO GROWTH IN 2 DAYS 03/20/16 09:00 Urine Culture - Final Complete Urine Catheterized Urine NO GROWTH IN 48 HOURS. Imaging Last Impressions Chest X-Ray 03/20/16 0600 Signed Impressions: Service Date/Time: Sunday, March 20, 2016 05:05 - CONCLUSION: Limited study by breathing motion artifact. Lungs are grossly clear. Maxwlel Hsu Jr., MD Abdomen X-Ray 03/20/16 0600 Signed Impressions: Service Date/Time: Sunday, March 20, 2016 05:08 - CONCLUSION: Feeding tube tip within the duodenum. No dilated loops of bowel. Maxwell Hsu Jr., MD Lower Extremity Ultrasound 03/20/16 0000 Signed Impressions: Service Date/Time: Sunday, March 20, 2016 14:32 - CONCLUSION: No DVT of either lower extremity. Darrian Leary MD Abdomen/Pelvis CT 03/15/16 0000 Signed Impressions: Service Date/Time: Tuesday, March 15, 2016 15:26 - CONCLUSION: 1. Compared to the prior exam, the previously noted gas bubbles in the wall of the cecum have resolved. 2. Otherwise, no other new or significant changes compared to the prior study. Wilver Bond MD Head CT 03/14/16 0000 Signed Impressions: Service Date/Time: Monday, March 14, 2016 16:13 - CONCLUSION: Normal examination. Jere Toro MD Renal Ultrasound 03/13/16 0000 Signed Impressions: Service Date/Time: Sunday, March 13, 2016 16:39 - CONCLUSION: Unremarkable renal ultrasound. K. Stephen Lundy MD GI Procedure 03/05/16 0000 Signed Impressions: Service Date/Time: Friday, March 04, 2016 23:02 - CONCLUSION: ERCP as above. Vidal Ye MD Gall Bladder Ultrasound 03/04/16 0000 Signed Impressions: Service Date/Time: Friday, March 04, 2016 19:36 - CONCLUSION: 1. Thick-walled gallbladder with some pericholecystic fluid and multiple gallstones in the region of the neck. The findings are suggestive of acute cholecystitis. Clinical correlation is recommended. 2. Fatty liver. 3. Minimal ascites within Polanco's pouch. 4. Poor visualization of the pancreas due to shadowing bowel gas. Odilon Butler MD Cholangiopancreatography MRI 03/04/16 0000 Signed Impressions: Service Date/Time: Friday, March 04, 2016 18:24 - CONCLUSION: 1. Extensive edema throughout the retroperitoneum and pancreas. No abscess or pseudocyst. 2. Tiny layering gallstones within the gallbladder. No discrete common bile duct stone. There is tapering of the common bile duct within the pancreatic head felt to be secondary to the edema within the pancreas. No discrete mass or choledocholithiasis. No intrahepatic or extrahepatic ductal dilatation. Maxwell Hsu Jr., MD Objective Remarks GENERAL: 66-year-old AA female, morbidly obese, critically ill appearing, currently resting in bed in no acute distress SKIN: Warm and dry. No rash HEAD: Atraumatic. Normocephalic. EYES: Pupils equal and round around 3 mm bilaterally and reactive. No scleral icterus. No injection or drainage. ENT: No nasal bleeding or discharge. Mucous membranes pink and moist. Keofed tube in right nares NECK: Trachea midline. No JVD. Right IJ CVL clean dry and intact CARDIOVASCULAR: Regular rate and rhythm. S1, S2. No S4. Without murmur RESPIRATORY: Distant breath sounds. Symmetrical excursion. Essentially clear to auscultation GASTROINTESTINAL: Abdomen obese. Less tender to palpation in all quadrants. Hypoactive bowel sounds rectal tube has been removed MUSCULOSKELETAL: Extremities with trace bilateral lower extremity pedal edema/ anasarca-like improved since admission. No obvious deformities. NEUROLOGICAL: Awake and alert to person and place. No obvious cranial nerve deficits. Motor grossly within normal limits. Five out of 5 muscle strength in the arms and legs. Currently annunciating better today PSYCHIATRIC: Depressed mood and affect. Urinary Catheter: No Assessment to: Continue Vascular Central Line Catheter: Yes Assessment to: Continue Date of Insertion: Mar 14, 2016 Line: Central Venous Catheter Side: Right Location: Internal, Jugular A/P Problem List: (1) Severe sepsis with acute organ dysfunction ICD Code: A41.9 Status: Acute (2) Cholangitis ICD Code: K83.0 Status: Acute (3) Hypertensive urgency ICD Code: I16.0 Status: Acute Assessment and Plan Neuro/Psych: Pain management for acute pancreatitis Acetaminophen for fever [place] 5/325 one every 4 hours/ morphine 2 mg every 3 hours hours when necessary for pain management CV: Severe sepsis from cholangitis and pancreatitis Hypertension by history Dyslipidemia - Holding home medications lisinopril/HCTZ in light of acute kidney injury. - Noted elevated HDL/LDL/total cholesterol - triglycerides within normal limits Consider statin when appropriate once LFTs normalize - As needed labetalol, hydralazine, Nitropaste for blood pressure control of present - Previously on metoprolol 50 mg twice a day with some SVT during this hospitalization. Continue IV Lopressor 5 milligrams every 4 hours with scheduled Nitropaste 2 inches every 6 hours while nothing by mouth - 2-D echo EF 55 - 60%. Trace MRSamuel ANNIE 39 mmHg Resp: Acute respiratory insufficiency likely secondary to volume overload - Nasal cannula to maintain saturations greater than equal to 92%. Currently on 2 L - Incentive spirometry while awake - Chest x-ray 03/14 after line placement reveals possible right lower lobe effusion/atelectasis. Chest x-ray 03/20 essentially clear with no acute cardiopulmonary findings GI: Status post ERCP/placement of stenting, bile duct secondary to stenosis Acute necrotizing Pancreatitis Possible pneumatosis intestinalis Transaminitis Hypo-albuminemia CT abdomen/pelvis 03/12 revealed multiple gallstones/worsening pancreatitis and possible pneumatosis intestinalis involving the cecum and the ascending colon Dr. Ceballos/general surgery following Discussed with Dr. Moulton yesterday. Agreed with hemodialysis and attempt to remove extra cellular fluid while maintaining intravascular volume. Difficult situation 14-24 intra-abdominal bladder pressures - Dr. Lucero/GI performed ERCP 03/04 with stent placement, distal common bile duct 8.5 [place] 7 cm secondary to stricture - Ultrasound revealed thickening in the gallbladder with pericholecystic fluid. Tiny gallstones noted. 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 storage brine worker sent appropriate paperwork to review. I called transfer center. If unavailable will contact [facility] for another option. Discussed with surgery 03/18. Currently with watchful waiting. He will contact specialist pancreatic surgeons at [facility] and [facility] if appropriate. Surgery signed off as a 03/22. Reconsult if necessary Continue with rectal tube to LIWS Adjusting TPN see orders. Tube feeds with Nepro at 40 cc an hour per general surgery advanced per general surgery : Azul if needed for accurate I's and O's in critically ill patient Endo: Hyperglycemia of critical illness Sliding-scale insulin/high with Accu-Cheks every 4 hours. Levemir to be decreased to 50 units twice a day has TPNdecreased Continue TPN initiated Renal: LOI - resolved - Creatinine appears to be stabilizing - Avoid nephrotoxic drugs. Noted lisinopril/hctz held - Nephrology consultation following when necessary as needed -Negative urine eosinophils renal ultrasound without obstruction - Follow BMP in a.m. Heme/Onc: History of breast cancer status post right mastectomy Leukocytosis Normocytic anemia CBC/coags ordered this a.m. Currently holding Letrozole 2.5 mg daily with elevated LFTs. Resume when clinically indicated ID: Possible necrotizing pancreatitis/pneumatosis intestinalis Day #10 micafungin/Merrem ID consult appreciated Pertinent cultures 03/04 - urine culture - negative 03/04 - blood cultures 2 - negative 03/07 - blood cultures 2 - negative 03/13 - blood cultures 2 -no growth 03/15 - urine culture -no growth /2 - blood cultures 2 - no growth /2 - urine cultures - negative Hopefully we can remove central line tomorrow FEN: Hypercalcemia Hypernatremia Replace electrolytes as clinically indicated 30 mmol K-Phos 1. 1 dose of calcitonin for elevated calcium. Daily calcium is removed from TPN. Currently on Nepro at 40 cc an hour general surgery TPN renal mix to be adjusted see orders MSK: Out of bed/PT evaluate and treat Access -Right IJ CVL day placed 03/14 - Left IJ hemodialysis catheter placed 03/13 and removed 03/20 Prophylaxis - GI - Protonix - DVT - SCD/heparin Critical Care: The total critical care time was 35 minutes. Time to perform other separately billable procedures was not included in the critical care time. Rosalio Bowie MD Mar 23, 2016 10:45
--- NOTE | 2016-03-23 12:27 | RADRPT ---
EXAM DATE/TIME: 03/23/2016 11:56 [place] COMPARISON: CHEST SINGLE AP, March 20, 2016, 5:05. INDICATIONS : Picc line verification. MEDICAL HISTORY : Carcinoma, breast. anxiety SURGICAL HISTORY : Hysterectomy. ENCOUNTER: Initial ACUITY: 3 weeks PAIN SCORE: 0/10 LOCATION: Bilateral chest FINDINGS: Central line and left PICC line are present in good position. A feeding tube traverses the esophagus into the stomach. There is consolidation at the left lung base obscuring the left diaphragm and patch y bilateral perihilar infiltrate. Accounting for slight rotation, the cardiac contours are stable. CONCLUSION: Slight interval worsening in aeration Darrian Engel MD on March 23, 2016 at 12:24 Board Certified Radiologist. This report was verified electronically.
[2016-03-23] MEDS: WATER IV SCH ×2 (12:50)
[2016-03-23] MEDS: DEXTROSE 5% IV SCH ×2 (12:50)
[2016-03-23] MEDS: MICAFUNGIN IV SCH ×2 (12:50)
[2016-03-23] MEDS: POTASSIUM ACETATE IV-CENTRAL SCH ×7 (15:15)
[2016-03-23] MEDS: [UNRECOGNIZED DRUG - OTHER] IV-CENTRAL SCH ×7 (15:15)
[2016-03-23] MEDS: POTASSIUM CHLORIDE IV-CENTRAL SCH ×7 (15:15)
--- NOTE | 2016-03-23 16:52 | HHI.GIFU ---
Subjective Remarks Pt resting in bed in no distress. Still lethargic, but improved from past few days. Not quite as tender. No vomiting. Tolerating TF. + BM (Nakita Crowe) Objective Vitals I&O Vital Signs Date Time Temp Pulse Resp B/P Pulse Ox O2 Delivery O2 Flow Rate FiO2 03/23/16 14:00 90 03/23/16 12:00 83 03/23/16 10:00 89 03/23/16 08:00 74 03/23/16 07:00 96 Nasal Cannula 6.00 03/23/16 06:00 78 03/23/16 04:00 100.0 92 19 115/56 100 03/23/16 04:00 92 03/23/16 02:00 90 03/23/16 02:00 100.8 116/55 03/23/16 00:00 101.2 98 23 146/66 99 03/23/16 00:00 98 03/22/16 22:00 91 03/22/16 20:00 84 03/22/16 20:00 100.1 118 36 203/91 93 03/22/16 19:05 94 Nasal Cannula 4.00 03/22/16 19:00 93 Nasal Cannula 3.00 03/22/16 19:00 90 Nasal Cannula 2.00 03/22/16 18:00 84 I/O 03/22/16 03/22/16 03/22/16 03/23/16 03/23/16 03/23/16 07:00 15:00 23:00 07:00 15:00 23:00 Intake Total 1260 ml 1612 ml 1280 ml 1598 ml 1517 ml Output Total 700 ml 1290 ml 1050 ml 600 ml 650 ml Balance 560 ml 322 ml 230 ml 998 ml 867 ml IV Total 159 ml 275 ml 188 ml 251 ml 276 ml Tube Feeding 218 ml 360 ml 302 ml 289 ml 257 ml TPN/PPN 483 ml 677 ml 590 ml 558 ml 684 ml Tube Irrigant 100 ml 100 ml Other 400 ml 300 ml 200 ml 400 ml 200 ml Output Urine Total 700 ml 1290 ml 1050 ml 600 ml 650 ml Stool Total 0 ml 0 ml # Bowel Movements 1 0 1 Laboratory Laboratory Tests Test 03/23/16 05:15 White Blood Count 9.8 Red Blood Count 2.74 Hemoglobin 7.7 Hematocrit 24.7 Mean Corpuscular Volume 90.1 Mean Corpuscular Hemoglobin 28.1 Mean Corpuscular Hemoglobin 31.2 Concent Red Cell Distribution Width 16.9 Platelet Count 232 Mean Platelet Volume 9.4 Neutrophils (%) (Auto) Lymphocytes (%) (Auto) Monocytes (%) (Auto) Eosinophils (%) (Auto) Basophils (%) (Auto) Neutrophils # (Auto) Lymphocytes # (Auto) Monocytes # (Auto) Eosinophils # (Auto) Basophils # (Auto) CBC Comment AUTO DIFF Differential Total Cells 100 Counted Neutrophils % (Manual) 75 Band Neutrophils % 10 Lymphocytes % 10 Monocytes % 3 Eosinophils % 1 Basophils % 1 Neutrophils # (Manual) 8.3 Differential Comment FINAL DIFF MANUAL Platelet Estimate NORMAL Platelet Morphology Comment NORMAL Keratocytes OCC Sodium Level 156 Potassium Level 4.6 Chloride Level 121 Carbon Dioxide Level 32.4 Anion Gap 3 Blood Urea Nitrogen 33 Creatinine 0.64 Estimat Glomerular Filtration 113 Rate Random Glucose 169 Calcium Level 10.3 Phosphorus Level 2.7 Magnesium Level 2.1 Total Bilirubin 0.3 Aspartate Amino Transf 82 (AST/SGOT) Alanine Aminotransferase 46 (ALT/SGPT) Alkaline Phosphatase 202 Total Protein 7.2 Albumin 1.8 Date/Time Procedure Status Source Growth 03/20/16 10:10 Aerobic Blood Culture - Preliminary Resulted Blood Peripheral NO GROWTH IN 3 DAYS 03/20/16 10:10 Anaerobic Blood Culture - Preliminary Resulted Blood Peripheral NO GROWTH IN 3 DAYS 03/20/16 09:00 Urine Culture - Final Complete Urine Catheterized Urine NO GROWTH IN 48 HOURS. Imaging Last Impressions Chest X-Ray 03/23/16 0000 Signed Impressions: Service Date/Time: March 11:56 - CONCLUSION: Slight interval worsening in aeration Darrian Engel MD Abdomen X-Ray 03/20/16 0600 Signed Impressions: Service Date/Time: Sunday, March 20, 2016 05:08 - CONCLUSION: Feeding tube tip within the duodenum. No dilated loops of bowel. Maxwell Hsu Jr., MD Lower Extremity Ultrasound 03/20/16 0000 Signed Impressions: Service Date/Time: Sunday, March 20, 2016 14:32 - CONCLUSION: No DVT of either lower extremity. Darrian Leary MD Abdomen/Pelvis CT 03/15/16 0000 Signed Impressions: Service Date/Time: Tuesday, March 15, 2016 15:26 - CONCLUSION: 1. Compared to the prior exam, the previously noted gas bubbles in the wall of the cecum have resolved. 2. Otherwise, no other new or significant changes compared to the prior study. Wilver Bond MD Head CT 03/14/16 0000 Signed Impressions: Service Date/Time: Monday, March 14, 2016 16:13 - CONCLUSION: Normal examination. Jere Toro MD Renal Ultrasound 03/13/16 0000 Signed Impressions: Service Date/Time: Sunday, March 13, 2016 16:39 - CONCLUSION: Unremarkable renal ultrasound. Abisai Lundy MD GI Procedure 03/05/16 0000 Signed Impressions: Service Date/Time: Friday, March 04, 2016 23:02 - CONCLUSION: ERCP as above. Vidal Ye MD Gall Bladder Ultrasound 03/04/16 0000 Signed Impressions: Service Date/Time: Friday, March 04, 2016 19:36 - CONCLUSION: 1. Thick-walled gallbladder with some pericholecystic fluid and multiple gallstones in the region of the neck. The findings are suggestive of acute cholecystitis. Clinical correlation is recommended. 2. Fatty liver. 3. Minimal ascites within Polanco's pouch. 4. Poor visualization of the pancreas due to shadowing bowel gas. Odilon Butler MD Cholangiopancreatography MRI 03/04/16 0000 Signed Impressions: Service Date/Time: Friday, March 04, 2016 18:24 - CONCLUSION: 1. Extensive edema throughout the retroperitoneum and pancreas. No abscess or pseudocyst. 2. Tiny layering gallstones within the gallbladder. No discrete common bile duct stone. There is tapering of the common bile duct within the pancreatic head felt to be secondary to the edema within the pancreas. No discrete mass or choledocholithiasis. No intrahepatic or extrahepatic ductal dilatation. Maxwell Hsu Jr., MD Physical Exam NECK: Neck is supple, no JVD, no lymphadenopathy. CHEST: Resp. shallow, mildly tachypneic. CARDIAC: ST ABDOMEN: Soft, distended, diffuse tenderness, hypoactive bowel sounds. EXTREMITIES: Generalized edema. SKIN: Lethargic, but improved from yesterday. (Nakita CrwoeP) Assessment and Plan Plan ASSESSMENT: - Severe diffuse ileus. Abdomen/Pelvis CT (03/15/16)-----> 1. Compared to the prior exam, the previously noted gas bubbles in the wall of the cecum have resolved. 2. Otherwise, no other new or significant changes compared to the prior study. S/P Relistor (03/16), colace, miralax, lactulose, senokot, reglan with good results. KUB (03/20/16)------> feeding tube in tip within the duodenum, no dilated loops of bowel. Rectal tube to LIWS, Abdomen distended, but soft. Tolerating TF so far and this is to be increased to 40cc/hr. Currently on Reglan, Senokot, Colace. Rectal tube d/c'd, + BM. Tolerating TF, TPN being weaned. - Severe acute gallstone pancreatitis. S/P ERCP (03/04/16)-----> stricture in the distal common bile duct, normal intrahepatic ducts, normal pancreatic ducts , patent cystic duct. S/P stent placement. [place], but clamped. Triglycerides 117. IgG [address] scan 03/15 with diffuse inflammatory changes surrounding the entire pancreas characteristic of pancreatitis. No new or significant changes are demonstrated compared to the prior study. Improving. WBC improving. Fevers improving. Tolerating post pyloric feedings at GR, TPN being weaned. IVF. - Biliary obstruction/cholangitis secondary to pancreatic head edema. S/P ERCP (03/04/16)-----> stricture in the distal common bile duct, normal intrahepatic ducts, normal pancreatic ducts, patent cystic duct. S/P stent placement. Abx per ID. - Acute cholecystitis. S/P GS evaluation. - Acute sepsis, Leukocytosis. Abx per ID. Improving. - Acute renal failure. Resolved. Off HD. - Resp. Insuff. Resp. shallow/tachypneic. Diminished breath sounds. - Anemia. H/H 7.7/24.7 Recommendations - Nepro at 40cc/hr - TPN decreased to 45cc/hr- d/c tomorrow - Cont. Reglan - Cont. Senokot - Cont. Colace - Abx per ID - S/P Relistor (03/16/16) - CCM following - Supportive care - Further recommendations to follow - Patient seen and examined by Dr. Gusman and myself and this note is written on his behalf. (Nakita Crowe) Physician Comments Patient was seen and examined, agree with above note and plan, continue current care. (Eli Gusman MD) Nakita Crowe Mar 23, 2016 16:52 Eli Gusman MD Mar 23, 2016 20:45
[2016-03-23] MEDS ORDERED: [UNRECOGNIZED DRUG - OTHER] IV-CENTRAL SCH ×7 (20:00)
[2016-03-23] MEDS ORDERED: POTASSIUM ACETATE IV-CENTRAL SCH ×7 (20:00)
[2016-03-23] MEDS ORDERED: POTASSIUM CHLORIDE IV-CENTRAL SCH ×7 (20:00)
[2016-03-24] VITALS (12 sets, daily range): BP systolic 116–189; BP diastolic 56–80; PULSE 65–104; RESP 13–34; TEMP 98.4–99.9; O2SAT 88–97
[2016-03-24] MEDS: MEROPENEM INJ 1,000 MG in SODIUM CHLORIDE 0.9% INJ 100 ML IV SCH ×3 (01:18→17:36)
[2016-03-24] MEDS: MORPHINE SULFATE 4 MG/ML INJ IV PUSH PRN ×2 (01:19→19:17)
[2016-03-24] MEDS: INSULIN NovoLIN REGULAR SUPPLEMENTAL SCALE SQ SCH ×5 (04:00→20:33)
[2016-03-24] MEDS: CHLORHEXIDINE GLUCONATE 2 % 1 PACK (2 CLOTHS) TOP SCH (04:00)
[2016-03-24] MEDS: FREE WATER G-TUBE SCH ×5 (04:35→20:00)
[2016-03-24] MEDS: METOPROLOL TARTRATE 5 MG/5 ML VIAL IV PUSH SCH ×3 (04:36→12:37)
[2016-03-24 04:46] LABS: AUTOMATED NEUTROPHIL # 5.5 TH/MM3 (1.8-7.7); BASOPHIL # 0.1 TH/MM3 (0-0.2); BASOPHIL % 0.9 % (0.0-2.0); EOSINOPHIL # 0.2 TH/MM3 (0-0.4); HEMATOCRIT 22.4 % (35.0-46.0); LYMPHOCYTE # 1.9 TH/MM3 (1.0-4.8); MEAN CELL VOLUME 89.8 FL (80.0-100.0); MEAN CORPUSCULAR HEMOGLOBIN 28.4 PG (27.0-34.0); MEAN CORPUSCULAR HGB CONC 31.7 % (32.0-36.0); MONO % 10.2 % (0.0-8.0); NEUT % 64.9 % (16.0-70.0); PLATELET COUNT 220 TH/MM3 (150-450); RED BLOOD COUNT 2.49 MIL/MM3 (4.00-5.30); RED CELL DISTRIBUTION WIDTH 17.1 % (11.6-17.2); WHITE BLOOD COUNT 8.4 TH/MM3 (4.0-11.0)
[2016-03-24 04:50] LABS: HEMO FLAGS AUTO DIFF
[2016-03-24 05:18] LABS: ALKALINE PHOSPHATASE 191 U/L (45-117); ALT (GPT) 45 U/L (10-53); ANION GAP 3 MEQ/L (5-15); AST (GOT) 71 U/L (15-37); BICARBONATE 32.8 MEQ/L (21.0-32.0); BLOOD UREA NITROGEN 38 MG/DL (7-18); CHLORIDE 122 MEQ/L (98-107); GLOMERULAR FILTRATION RATE 95 ML/MIN (>89); TOTAL BILIRUBIN ADULT 0.3 MG/DL (0.2-1.0)
[2016-03-24] MEDS: METOCLOPRAMIDE HCL 10 MG/2 ML VIAL IV PUSH SCH ×3 (05:31→21:14)
[2016-03-24] MEDS: HEPARIN SODIUM - SQ 10,000 UNITS/ML VIAL SQ SCH ×3 (05:31→21:14)
[2016-03-24] MEDS: NITROGLYCERIN 2% OINT 1 GM PACKET TOPICAL SCH ×2 (05:32→12:37)
[2016-03-24 05:40] LABS: SODIUM (NA) 158 MEQ/L (136-145)
[2016-03-24 07:28] LABS: PLATELET ESTIMATE SMEAR NORMAL (NORMAL); PLATELET MORPHOLOGY NORMAL (NORMAL); SCAN/DIFF AUTO DIFF CONFIRMED
--- NOTE | 2016-03-24 08:38 | HHI.GIFU ---
Subjective Remarks Pt resting in bed in no distress. Nurse reports that dobhoff was dislodged overnight and this was replaced. Xray up to confirm placement- although the tube is long and likely needs to be advanced. Asked the nurse to advance this prior to xray. 2 bms overnight. (Nakita Crowe) Objective Vitals I&O Vital Signs Date Time Temp Pulse Resp B/P Pulse Ox O2 Delivery O2 Flow Rate FiO2 03/24/16 06:00 87 03/24/16 04:00 79 03/24/16 04:00 99.4 79 17 116/57 96 03/24/16 02:00 86 03/24/16 00:00 99.2 65 13 116/56 97 03/24/16 00:00 65 03/23/16 22:00 78 03/23/16 20:00 77 03/23/16 20:00 99.2 77 18 141/64 97 03/23/16 19:00 100 Nasal Cannula 6.00 03/23/16 18:00 89 03/23/16 16:00 98.9 85 22 133/65 100 03/23/16 16:00 81 03/23/16 14:00 90 03/23/16 12:00 83 03/23/16 12:00 98.7 74 20 137/65 97 03/23/16 10:00 89 I/O 03/23/16 03/23/16 03/23/16 03/24/16 03/24/16 03/24/16 07:00 15:00 23:00 07:00 15:00 23:00 Intake Total 1598 ml 1517 ml 933 ml 1208 ml Output Total 600 ml 650 ml 650 ml 425 ml Balance 998 ml 867 ml 283 ml 783 ml IV Total 251 ml 276 ml 165 ml 172 ml Tube Feeding 289 ml 257 ml 263 ml 318 ml TPN/PPN 558 ml 684 ml 305 ml 318 ml Tube Irrigant 100 ml 100 ml 0 ml 0 ml Other 400 ml 200 ml 200 ml 400 ml Output Urine Total 600 ml 650 ml 650 ml 425 ml # Bowel Movements 0 1 0 1 Laboratory Laboratory Tests Test 03/24/16 04:29 White Blood Count 8.4 Red Blood Count 2.49 Hemoglobin 7.1 Hematocrit 22.4 Mean Corpuscular Volume 89.8 Mean Corpuscular Hemoglobin 28.4 Mean Corpuscular Hemoglobin 31.7 Concent Red Cell Distribution Width 17.1 Platelet Count 220 Mean Platelet Volume 9.3 Neutrophils (%) (Auto) 64.9 Lymphocytes (%) (Auto) 22.0 Monocytes (%) (Auto) 10.2 Eosinophils (%) (Auto) 2.0 Basophils (%) (Auto) 0.9 Neutrophils # (Auto) 5.5 Lymphocytes # (Auto) 1.9 Monocytes # (Auto) 0.9 Eosinophils # (Auto) 0.2 Basophils # (Auto) 0.1 CBC Comment AUTO DIFF Differential Comment AUTO DIFF CONFIRMED Platelet Estimate NORMAL Platelet Morphology Comment NORMAL Sodium Level 158 Potassium Level 4.0 Chloride Level 122 Carbon Dioxide Level 32.8 Anion Gap 3 Blood Urea Nitrogen 38 Creatinine 0.74 Estimat Glomerular Filtration 95 Rate Random Glucose 99 Calcium Level 11.4 Phosphorus Level 2.8 Magnesium Level 2.0 Total Bilirubin 0.3 Aspartate Amino Transf 71 (AST/SGOT) Alanine Aminotransferase 45 (ALT/SGPT) Alkaline Phosphatase 191 Total Protein 7.0 Albumin 1.8 Date/Time Procedure Status Source Growth 03/20/16 10:10 Aerobic Blood Culture - Preliminary Resulted Blood Peripheral NO GROWTH IN 3 DAYS 03/20/16 10:10 Anaerobic Blood Culture - Preliminary Resulted Blood Peripheral NO GROWTH IN 3 DAYS 03/20/16 09:00 Urine Culture - Final Complete Urine Catheterized Urine NO GROWTH IN 48 HOURS. Imaging Last Impressions Chest X-Ray 03/23/16 0000 Signed Impressions: Service Date/Time: March 11:56 - CONCLUSION: Slight interval worsening in aeration Darrian Engel MD Abdomen X-Ray 03/20/16 0600 Signed Impressions: Service Date/Time: Sunday, March 20, 2016 05:08 - CONCLUSION: Feeding tube tip within the duodenum. No dilated loops of bowel. Maxwell Hsu Jr., MD Lower Extremity Ultrasound 03/20/16 0000 Signed Impressions: Service Date/Time: Sunday, March 20, 2016 14:32 - CONCLUSION: No DVT of either lower extremity. Darrian Leary MD Abdomen/Pelvis CT 03/15/16 0000 Signed Impressions: Service Date/Time: Tuesday, March 15, 2016 15:26 - CONCLUSION: 1. Compared to the prior exam, the previously noted gas bubbles in the wall of the cecum have resolved. 2. Otherwise, no other new or significant changes compared to the prior study. Wilver Bond MD Head CT 03/14/16 0000 Signed Impressions: Service Date/Time: Monday, March 14, 2016 16:13 - CONCLUSION: Normal examination. Jere Toro MD Renal Ultrasound 03/13/16 0000 Signed Impressions: Service Date/Time: Sunday, March 13, 2016 16:39 - CONCLUSION: Unremarkable renal ultrasound. K. Stephen Lundy MD GI Procedure 03/05/16 0000 Signed Impressions: Service Date/Time: Friday, March 04, 2016 23:02 - CONCLUSION: ERCP as above. Vidal Ye MD Gall Bladder Ultrasound 03/04/16 0000 Signed Impressions: Service Date/Time: Friday, March 04, 2016 19:36 - CONCLUSION: 1. Thick-walled gallbladder with some pericholecystic fluid and multiple gallstones in the region of the neck. The findings are suggestive of acute cholecystitis. Clinical correlation is recommended. 2. Fatty liver. 3. Minimal ascites within Polanco's pouch. 4. Poor visualization of the pancreas due to shadowing bowel gas. Odilon Butler MD Cholangiopancreatography MRI 03/04/16 0000 Signed Impressions: Service Date/Time: Friday, March 04, 2016 18:24 - CONCLUSION: 1. Extensive edema throughout the retroperitoneum and pancreas. No abscess or pseudocyst. 2. Tiny layering gallstones within the gallbladder. No discrete common bile duct stone. There is tapering of the common bile duct within the pancreatic head felt to be secondary to the edema within the pancreas. No discrete mass or choledocholithiasis. No intrahepatic or extrahepatic ductal dilatation. Maxwell Hsu Jr., MD Physical Exam NECK: Neck is supple, no JVD, no lymphadenopathy. CHEST: Resp. shallow, mildly tachypneic. CARDIAC: ST ABDOMEN: Soft, distended, diffuse tenderness, hypoactive bowel sounds. EXTREMITIES: Generalized edema. SKIN: Lethargic, but slowly improving. (Nakita Crowe [facility]) Assessment and Plan Plan ASSESSMENT: - Severe acute gallstone pancreatitis. S/P ERCP (03/04/16)-----> stricture in the distal common bile duct, normal intrahepatic ducts, normal pancreatic ducts , patent cystic duct. S/P stent placement. Dobhoff, but clamped. Triglycerides 117. IgG [address] scan 03/15 with diffuse inflammatory changes surrounding the entire pancreas characteristic of pancreatitis. No new or significant changes are demonstrated compared to the prior study. Improving. WBC improving. Had been tolerating post pyloric feedings at [facility], but her dobhoff was dislodged and had to be replaced this morning. Xray up to confirm placement. TPN being weaned- this can be discontinued once dobhoff placement confirmed and she is back on TF at [facility]. - Severe diffuse ileus. Abdomen/Pelvis CT (03/15/16)-----> 1. Compared to the prior exam, the previously noted gas bubbles in the wall of the cecum have resolved. 2. Otherwise, no other new or significant changes compared to the prior study. S/P Relistor (03/16), colace, miralax, lactulose, senokot, reglan with good results. KUB (03/20/16)------> feeding tube in tip within the duodenum, no dilated loops of bowel. Abdomen is distended, but soft, slowly improving. Currently on Reglan, Senokot, Colace. Rectal tube d/c'd, + BM. Had been tolerating TF, but her dobhoff was dislodged. - Biliary obstruction/cholangitis secondary to pancreatic head edema. S/P ERCP (03/04/16)-----> stricture in the distal common bile duct, normal intrahepatic ducts, normal pancreatic ducts, patent cystic duct. S/P stent placement. LFTs are stable. T. Bili 0.3, AST 71, ALT 45, Alk Phosph 191. Abx per ID. - Acute cholecystitis. S/P GS evaluation. - Acute sepsis, Leukocytosis. Abx per ID. Improving. - Acute renal failure. Resolved. Off HD. - Resp. Insuff. Resp. shallow/tachypneic. Diminished breath sounds. - Anemia. H/H 7.1/22.4. Recommendations - Resume TF once dobhoff placement confirmed - Nepro at 40cc/hr - TPN can be discontinued once dobhoff placement confirmed and back on TF at [facility] - Cont. Reglan - Cont. Senokot - Cont. Colace - Abx per ID - S/P Relistor (03/16/16) - CCM following - Supportive care - Further recommendations to follow - Patient seen and examined by Dr. Gusman and myself and this note is written on his behalf. (Nakita Crowe) Physician Comments Patient was seen and examined, agree with above note and plan. (Eli Gusman MD) Nakita Crowe Mar 24, 2016 08:38 Eli Gusman MD Mar 25, 2016 07:21
[2016-03-24] MEDS: INSULIN DETEMIR 100 UNITS/ML VIAL SQ SCH (09:00)
[2016-03-24] MEDS: SODIUM CHLORIDE 0.9% FLUSH 5 ML FLUSH IV FLUSH SCH ×2 (09:00→20:33)
[2016-03-24] MEDS: SODIUM CHLORIDE 0.9% FLUSH 5 ML FLUSH IVF SCH (09:00)
[2016-03-24] MEDS: LACTULOSE SYRUP 20 GM/30 ML CUP PO SCH (09:00)
--- NOTE | 2016-03-24 09:18 | RADRPT ---
EXAM DATE/TIME: 03/24/2016 08:12 [place] COMPARISON: ABDOMEN KUB ONLY, March 20, 2016, 5:08. INDICATIONS : Confirm NG tube placement MEDICAL HISTORY : Carcinoma, breast. Renal failure, chronic. Hypertension. SURGICAL HISTORY : Mastectomy, right. Hysterectomy. ENCOUNTER: Subsequent ACUITY: 2 weeks PAIN SCORE: Non-responsive. LOCATION: Bilateral chest FINDINGS: Weighted feeding tube coils into the stomach. A biliary stent is noted. There is prominent gaseous di stention of the believe is the colon. This is worse than on previous exam CONCLUSION: Weighted feeding tube tip is in the stomach. Prominent gaseous distention of the colon Darrian Engel MD on March 24, 2016 at 9:15 Board Certified Radiologist. This report was verified electronically.
[2016-03-24] MEDS: PANTOPRAZOLE SODIUM 40 MG VIAL IV SCH (09:45)
[2016-03-24] MEDS: DOCUSATE SODIUM 100 MG CAP PO SCH ×2 (09:46→20:33)
[2016-03-24] MEDS: SENNOSIDES 8.6 MG TAB PO SCH ×2 (09:48→20:33)
[2016-03-24] MEDS: DEXTROSE 5% IV SCH ×2 (12:36)
[2016-03-24] MEDS: MICAFUNGIN IV SCH ×2 (12:36)
[2016-03-24] MEDS: WATER IV SCH ×2 (12:36)
[2016-03-24] MEDS ORDERED: NITROGLYCERIN 2% OINT 1 GM PACKET TOPICAL PRN (14:15)
[2016-03-24] MEDS: DEXTROSE 5%-NACL 0.225% INJ 1,000 ML IV SCH (14:15)
--- NOTE | 2016-03-24 14:21 | HHI.CCPN ---
Subjective Remarks/Hospital Course > 48 hour history of epigastric pain, vomiting. GB US reveals cholecystitis with stones in neck. MRCP - pancreatitis, ducts not dilated. Received stent into a bile duct secondary to stricture due to pancreatic head edema. [facility] re -consulted today 03/12 due to patient's tachypnea and abdominal distention. 03/13 - Patient appears significantly more acutely ill since I last saw her . Answers questions in 1-2 word responses. Resting in bed with quite distant added. Diffuse in all 4 quadrants abdominal stated to be Pain 10 out of 10. Tube feeds on hold. Decreased urine output noted. 03/14: Tmax 100. Currently 98.9. Status post -4 L hemodialysis yesterday. Breathing appears intermittently tachypneic and labored however she is more alert today and able to verbally complete sentences today. No bowel movement yesterday. Tube feeds currently off. 03/15: Tmax 102. Currently 100.5. Status post -3.5 L hemodialysis today. More lethargic. TPN to be initiated today. 03/16: Afebrile overnight. Started on TPN with elevated blood sugars. Currently on insulin drip. 2 large bowel movements yesterday. She is making adequate urine output. Pain better controlled today. White cell count has decreased slowly. Clinically appears better. 03/17: Afebrile. Blood sugars are stabilized. White cell count is stabilized. Positive BM yesterday. Abdomen less distended but abdominal pressure still in the low 20s. Arousable and follows commands. 03/18: Tmax 100.1. 2 BMs yesterday. Currently resting in bed. Abdominal pressures 17-19 overnight. Arousable and will follow commands. 03/19/16: Tmax 100.2. Positive BM. -3 L hemodialysis yesterday. Patient agitated overnight. Currently received Adams and sedated. Complains of abdominal pain. Abdomen appears much less distended than previously. 03/20/16: Tmax 101.1. Currently 101. More lethargic this a.m. likely secondary to fevers. White cell count continues to trend downward. A.m. labs pending. Tolerating tube feed. Positive BM. 03/21/16: Tmax 101.1. Currently 101. White cell count has normalized. Tolerating tube feeding. Positive BM. Hemodialysis catheter removed yesterday. 03/22/16: Tmax 101.5. Currently 99. Currently out of bed to chair. White cell count is stabilized. Tolerating tube feeding as been increased to 40 cc an hour. No bowel movement 2 days 03/23/16: Tmax 101.2. Currently afebrile. Resting in bed. Tube feeds are stable at 40 cc an hour. Positive BM. More awake and alert today. Subjective 03/24: Afebrile. Tolerating tube feeds at 40 cc an hour. Positive BM. Will initiate oral diet. TPN is discontinued. Objective Vital Signs Date Time Temp Pulse Resp B/P Pulse Ox O2 Delivery O2 Flow Rate FiO2 03/24/16 12:00 99.4 75 21 03/24/16 08:00 138/66 93 03/24/16 07:00 Room Air 03/24/16 07:00 2.00 Intake and Output 03/23/16 03/23/16 03/24/16 08:00 16:00 00:00 Intake Total 1598 ml 1517 ml 933 ml Output Total 600 ml 650 ml 650 ml Balance 998 ml 867 ml 283 ml Result Diagram: 03/24/16 0429 03/24/16 0429 Other Results Microbiology Date/Time Procedure Status Source Growth 03/20/16 10:10 Aerobic Blood Culture - Preliminary Resulted Blood Peripheral NO GROWTH IN 4 DAYS 03/20/16 10:10 Anaerobic Blood Culture - Preliminary Resulted Blood Peripheral NO GROWTH IN 4 DAYS 03/20/16 09:00 Urine Culture - Final Complete Urine Catheterized Urine NO GROWTH IN 48 HOURS. Imaging Last Impressions Abdomen X-Ray 03/24/16 0000 Signed Impressions: Service Date/Time: Thursday, March 24, 2016 08:12 - CONCLUSION: Weighted feeding tube tip is in the stomach. Prominent gaseous distention of the colon Darrian Engel MD Chest X-Ray 03/23/16 0000 Signed Impressions: Service Date/Time: March 11:56 - CONCLUSION: Slight interval worsening in aeration Darrian Engel MD Lower Extremity Ultrasound 03/20/16 0000 Signed Impressions: Service Date/Time: Sunday, March 20, 2016 14:32 - CONCLUSION: No DVT of either lower extremity. Darrian Leary MD Abdomen/Pelvis CT 03/15/16 0000 Signed Impressions: Service Date/Time: Tuesday, March 15, 2016 15:26 - CONCLUSION: 1. Compared to the prior exam, the previously noted gas bubbles in the wall of the cecum have resolved. 2. Otherwise, no other new or significant changes compared to the prior study. Wilver Bond MD Head CT 03/14/16 0000 Signed Impressions: Service Date/Time: Monday, March 14, 2016 16:13 - CONCLUSION: Normal examination. Jere Toro MD Renal Ultrasound 03/13/16 0000 Signed Impressions: Service Date/Time: Sunday, March 13, 2016 16:39 - CONCLUSION: Unremarkable renal ultrasound. Abisai Lundy MD GI Procedure 03/05/16 0000 Signed Impressions: Service Date/Time: Friday, March 04, 2016 23:02 - CONCLUSION: ERCP as above. Vidal Ye MD Gall Bladder Ultrasound 03/04/16 0000 Signed Impressions: Service Date/Time: Friday, March 04, 2016 19:36 - CONCLUSION: 1. Thick-walled gallbladder with some pericholecystic fluid and multiple gallstones in the region of the neck. The findings are suggestive of acute cholecystitis. Clinical correlation is recommended. 2. Fatty liver. 3. Minimal ascites within Polanco's pouch. 4. Poor visualization of the pancreas due to shadowing bowel gas. Odilon Butler MD Cholangiopancreatography MRI 03/04/16 0000 Signed Impressions: Service Date/Time: Friday, March 04, 2016 18:24 - CONCLUSION: 1. Extensive edema throughout the retroperitoneum and pancreas. No abscess or pseudocyst. 2. Tiny layering gallstones within the gallbladder. No discrete common bile duct stone. There is tapering of the common bile duct within the pancreatic head felt to be secondary to the edema within the pancreas. No discrete mass or choledocholithiasis. No intrahepatic or extrahepatic ductal dilatation. Maxwell Hsu Jr., MD Objective Remarks GENERAL: 66-year-old AA female, morbidly obese, critically ill appearing, currently resting in bed in no acute distress SKIN: Warm and dry. No rash HEAD: Atraumatic. Normocephalic. EYES: Pupils equal and round around 3 mm bilaterally and reactive. No scleral icterus. No injection or drainage. ENT: No nasal bleeding or discharge. Mucous membranes pink and moist. Keofed tube in right nares NECK: Trachea midline. No JVD. Right IJ CVL clean dry and intact CARDIOVASCULAR: Regular rate and rhythm. S1, S2. No S4. Without murmur RESPIRATORY: Distant breath sounds. Symmetrical excursion. Essentially clear to auscultation GASTROINTESTINAL: Abdomen obese. Less tender to palpation in all quadrants. Hypoactive bowel sounds rectal tube has been removed MUSCULOSKELETAL: Extremities with trace bilateral lower extremity pedal edema/ anasarca-like improved since admission. No obvious deformities. NEUROLOGICAL: Awake and alert to person and place. No obvious cranial nerve deficits. Motor grossly within normal limits. Five out of 5 muscle strength in the arms and legs. Currently annunciating better today PSYCHIATRIC: Depressed mood and affect. Date of Insertion: Mar 14, 2016 Line: Central Venous Catheter Side: Right Location: Internal, Jugular A/P Problem List: (1) Severe sepsis with acute organ dysfunction ICD Code: A41.9 Status: Acute (2) Cholangitis ICD Code: K83.0 Status: Acute (3) Hypertensive urgency ICD Code: I16.0 Status: Acute Assessment and Plan Neuro/Psych: Pain management for acute pancreatitis Acetaminophen for fever Adams 5/325 one every 4 hours/ morphine 2 mg every 3 hours hours when necessary for pain management CV: Severe sepsis from cholangitis and pancreatitis Hypertension by history Dyslipidemia - Holding home medications lisinopril/HCTZ in light of acute kidney injury. - Noted elevated HDL/LDL/total cholesterol - triglycerides within normal limits Consider statin when appropriate once LFTs normalize - As needed labetalol, hydralazine, Nitropaste for blood pressure control of present - Previously on metoprolol 50 mg twice a day with some SVT during this hospitalization. Continue IV Lopressor 5 milligrams every 4 hours with scheduled Nitropaste 2 inches every 6 hours while nothing by mouth - 2-D echo EF 55 - 60%. Trace MR. ANNIE 39 mmHg Resp: Acute respiratory insufficiency likely secondary to volume overload - Nasal cannula to maintain saturations greater than equal to 92%. Currently on 2 L - Incentive spirometry while awake - Chest x-ray 03/14 after line placement reveals possible right lower lobe effusion/atelectasis. Chest x-ray 03/20 essentially clear with no acute cardiopulmonary findings GI: Status post ERCP/placement of stenting, bile duct secondary to stenosis Acute necrotizing Pancreatitis Possible pneumatosis intestinalis Transaminitis Hypo-albuminemia CT abdomen/pelvis 03/12 revealed multiple gallstones/worsening pancreatitis and possible pneumatosis intestinalis involving the cecum and the ascending colon Dr. Ceballos/general surgery following Discussed with Dr. Moulton yesterday. Agreed with hemodialysis and attempt to remove extra cellular fluid while maintaining intravascular volume. Difficult situation 14-24 intra-abdominal bladder pressures - Dr. Lucero/GI performed ERCP 03/04 with stent placement, distal common bile duct 8.5 Estonian 7 cm secondary to stricture - Ultrasound revealed thickening in the gallbladder with pericholecystic fluid. Tiny gallstones noted. 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 drug worker sent appropriate paperwork to review. I called transfer center. If unavailable will contact [facility] for another option. Discussed with surgery 03/18. Currently with watchful waiting. He will contact specialist pancreatic surgeons at [facility] and [facility] if appropriate. Surgery signed off as a 03/22. Reconsult if necessary Continue with rectal tube to LIWS TPN was discontinued Tube feeds with Nepro at 40 cc an hour per general surgery advanced per general surgery Starting. Diet per speech therapy today : Azul if needed for accurate I's and O's in critically ill patient Endo: Hyperglycemia of critical illness Sliding-scale insulin/high with Accu-Cheks every 4 hours. Levemir to be discontinued today Continue TPN initiated Renal: LOI - resolved - Creatinine appears to be stabilizing - Avoid nephrotoxic drugs. Noted lisinopril/hctz held - Nephrology consultation following when necessary as needed -Negative urine eosinophils renal ultrasound without obstruction - Follow BMP in a.m. Heme/Onc: History of breast cancer status post right mastectomy Leukocytosis Normocytic anemia CBC/coags ordered this a.m. Currently holding Letrozole 2.5 mg daily with elevated LFTs. Resume when clinically indicated ID: Possible necrotizing pancreatitis/pneumatosis intestinalis Day #11 micafungin/Merrem ID consult appreciated Pertinent cultures 03/04 - urine culture - negative 03/04 - blood cultures 2 - negative 03/07 - blood cultures 2 - negative 03/13 - blood cultures 2 -no growth 03/15 - urine culture -no growth 03/20 - blood cultures 2 - no growth 03/20 - urine cultures - negative FEN: Hypercalcemia Hypernatremia Replace electrolytes as clinically indicated 1 dose of calcitonin for elevated calcium. Daily calcium is removed from TPN. Currently on Nepro at 40 cc an hour general surgery Currently on free water 250 cc every 4 hours MSK: Out of bed/PT evaluate and treat Access PICC line day #2 -Right IJ CVL day 10 placed 03/14 and removed / - Left IJ hemodialysis catheter placed 03/13 and removed 03/20 Prophylaxis - GI - Protonix - DVT - SCD/heparin Critical Care: The total critical care time was 35 minutes. Time to perform other separately billable procedures was not included in the critical care time. Rosalio Bowie MD Mar 24, 2016 14:20
[2016-03-24] MEDS ORDERED: CALCITONIN SALMON INJ 400 UNITS/2 ML VIAL SQ ONE (14:30)
[2016-03-24] MEDS: METOPROLOL TARTRATE 25 MG TAB PO SCH ×2 (15:30→21:14)
[2016-03-24] MEDS: ISOSORBIDE DINITRATE 10 MG TAB PO SCH ×2 (15:30→21:15)
[2016-03-24] MEDS: hydrALAZINE HCL 20 MG/ML VIAL IV PUSH PRN (17:43)
[2016-03-25] VITALS (16 sets, daily range): BP systolic 136–155; BP diastolic 62–70; PULSE 70–81; RESP 18–27; TEMP 97.7–99; O2SAT 96–98
[2016-03-25] MEDS: INSULIN NovoLIN REGULAR SUPPLEMENTAL SCALE SQ SCH ×6 (00:11→20:27)
[2016-03-25] MEDS: DEXTROSE 5%-NACL 0.225% INJ 1,000 ML IV SCH (00:11)
[2016-03-25] MEDS: MEROPENEM INJ 1,000 MG in SODIUM CHLORIDE 0.9% INJ 100 ML IV SCH ×3 (01:20→17:36)
[2016-03-25] MEDS: CHLORHEXIDINE GLUCONATE 2 % 1 PACK (2 CLOTHS) TOP SCH (04:00)
[2016-03-25] MEDS: FREE WATER G-TUBE SCH ×6 (04:00→19:56)
[2016-03-25] MEDS: METOCLOPRAMIDE HCL 10 MG/2 ML VIAL IV PUSH SCH ×3 (05:08→20:27)
[2016-03-25] MEDS: METOPROLOL TARTRATE 25 MG TAB PO SCH ×3 (05:08→19:56)
[2016-03-25] MEDS: HEPARIN SODIUM - SQ 10,000 UNITS/ML VIAL SQ SCH ×3 (05:08→19:56)
[2016-03-25] MEDS: ISOSORBIDE DINITRATE 10 MG TAB PO SCH ×3 (05:08→19:56)
[2016-03-25] MEDS: SODIUM CHLORIDE 0.9% FLUSH 5 ML FLUSH IV FLUSH SCH ×2 (09:00→19:57)
[2016-03-25] MEDS: SODIUM CHLORIDE 0.9% FLUSH 5 ML FLUSH IVF SCH (09:00)
[2016-03-25] MEDS: PANTOPRAZOLE SODIUM 40 MG VIAL IV SCH (09:01)
[2016-03-25] MEDS: LACTULOSE SYRUP 20 GM/30 ML CUP PO SCH (09:01)
[2016-03-25] MEDS: SENNOSIDES 8.6 MG TAB PO SCH ×2 (09:02→19:57)
[2016-03-25] MEDS: DOCUSATE SODIUM 100 MG CAP PO SCH ×2 (09:03→19:57)
[2016-03-25] MEDS: WATER IV SCH ×2 (10:57)
[2016-03-25] MEDS: MICAFUNGIN IV SCH ×2 (10:57)
[2016-03-25] MEDS: DEXTROSE 5% IV SCH ×2 (10:57)
--- NOTE | 2016-03-25 15:42 | HHI.GIFU ---
Subjective Remarks Pt lethargic, resting in bed in no distress. Mild tenderness on exam. Tolerating TF at this time. + BM (Nakita Crowe) Objective Vitals I&O Vital Signs Date Time Temp Pulse Resp B/P Pulse Ox O2 Delivery O2 Flow Rate FiO2 03/25/16 14:00 76 03/25/16 12:00 75 03/25/16 12:00 98.3 74 26 150/66 97 03/25/16 10:00 75 03/25/16 10:00 75 03/25/16 08:56 96 Nasal Cannula 2.50 03/25/16 08:42 97 Nasal Cannula 2.00 03/25/16 08:00 81 03/25/16 08:00 97.7 74 27 136/64 97 03/25/16 07:00 96 Nasal Cannula 3.00 03/25/16 06:00 71 03/25/16 04:00 70 03/25/16 04:00 98.5 70 19 155/70 96 03/25/16 02:00 78 03/25/16 01:32 98 Nasal Cannula 2.00 03/25/16 00:00 99.0 73 18 151/69 98 03/25/16 00:00 73 03/24/16 22:00 78 03/24/16 21:40 99.0 80 20 151/67 97 03/24/16 20:00 104 03/24/16 20:00 99.0 77 34 189/80 88 03/24/16 20:00 88 Nasal Cannula 3.00 03/24/16 18:00 90 03/24/16 16:00 98.4 77 20 189/76 96 I/O 03/24/16 03/24/16 03/24/16 03/25/16 03/25/16 03/25/16 07:00 15:00 23:00 07:00 15:00 23:00 Intake Total 1208 ml 1102 ml 1675 ml 1315 ml 1755 ml Output Total 425 ml 1000 ml 700 ml 450 ml 700 ml Balance 783 ml 102 ml 975 ml 865 ml 1055 ml IV Total 172 ml 400 ml 625 ml 421 ml 914 ml Tube Feeding 318 ml 202 ml 453 ml 233 ml 341 ml TPN/PPN 318 ml Packed Cells 97 ml 161 ml Tube Irrigant 0 ml Other 400 ml 500 ml 500 ml 500 ml 500 ml Output Urine Total 425 ml 1000 ml 700 ml 450 ml 700 ml # Bowel Movements 1 1 0 1 Laboratory Laboratory Tests Test 03/24/16 03/24/16 17:10 17:47 Blood Type O POSITIVE O POSITIVE Antibody Screen NEGATIVE Crossmatch Leukocyte-Reduced Red Blood Cells Blood Bank Comment Imaging Last Impressions Abdomen X-Ray 03/24/16 0000 Signed Impressions: Service Date/Time: Thursday, March 24, 2016 08:12 - CONCLUSION: Weighted feeding tube tip is in the stomach. Prominent gaseous distention of the colon Darrian Engel MD Chest X-Ray 03/23/16 0000 Signed Impressions: Service Date/Time: March 11:56 - CONCLUSION: Slight interval worsening in aeration Darrian Engel MD Lower Extremity Ultrasound 03/20/16 0000 Signed Impressions: Service Date/Time: Sunday, March 20, 2016 14:32 - CONCLUSION: No DVT of either lower extremity. Darrian Leary MD Abdomen/Pelvis CT 03/15/16 0000 Signed Impressions: Service Date/Time: Tuesday, March 15, 2016 15:26 - CONCLUSION: 1. Compared to the prior exam, the previously noted gas bubbles in the wall of the cecum have resolved. 2. Otherwise, no other new or significant changes compared to the prior study. Wilver Bond MD Head CT 03/14/16 0000 Signed Impressions: Service Date/Time: Monday, March 14, 2016 16:13 - CONCLUSION: Normal examination. Jere Toro MD Renal Ultrasound 03/13/16 0000 Signed Impressions: Service Date/Time: Sunday, March 13, 2016 16:39 - CONCLUSION: Unremarkable renal ultrasound. K. Stephen Lundy MD GI Procedure 03/05/16 0000 Signed Impressions: Service Date/Time: Friday, March 04, 2016 23:02 - CONCLUSION: ERCP as above. Vidal Ye MD Gall Bladder Ultrasound 03/04/16 0000 Signed Impressions: Service Date/Time: Friday, March 04, 2016 19:36 - CONCLUSION: 1. Thick-walled gallbladder with some pericholecystic fluid and multiple gallstones in the region of the neck. The findings are suggestive of acute cholecystitis. Clinical correlation is recommended. 2. Fatty liver. 3. Minimal ascites within Polanco's pouch. 4. Poor visualization of the pancreas due to shadowing bowel gas. Odilon Butler MD Cholangiopancreatography MRI 03/04/16 0000 Signed Impressions: Service Date/Time: Friday, March 04, 2016 18:24 - CONCLUSION: 1. Extensive edema throughout the retroperitoneum and pancreas. No abscess or pseudocyst. 2. Tiny layering gallstones within the gallbladder. No discrete common bile duct stone. There is tapering of the common bile duct within the pancreatic head felt to be secondary to the edema within the pancreas. No discrete mass or choledocholithiasis. No intrahepatic or extrahepatic ductal dilatation. Maxwell Hsu Jr., MD Physical Exam NECK: Neck is supple, no JVD, no lymphadenopathy. CHEST: Resp. shallow, mildly tachypneic. CARDIAC: ST ABDOMEN: Soft, distended, diffuse tenderness, hypoactive bowel sounds. EXTREMITIES: Generalized edema. SKIN: Lethargic, but slowly improving. (Nakita Crowe) Assessment and Plan Plan ASSESSMENT: - Severe acute gallstone pancreatitis. S/P ERCP (03/04/16)-----> stricture in the distal common bile duct, normal intrahepatic ducts, normal pancreatic ducts , patent cystic duct. S/P stent placement. Dobhoff, but clamped. Triglycerides 117. IgG [address] scan 03/15 with diffuse inflammatory changes surrounding the entire pancreas characteristic of pancreatitis. No new or significant changes are demonstrated compared to the prior study. Improving. WBC improving. TPN off. Tolerating TF via dobhoff, of note, this was in abdomen on 03/24/16 xray. Will get KUB in am , if this has not advanced with peristalsis, then it will need to be advanced by diagnostic radiology for post pyloric feedings. - Severe diffuse ileus. RESOLVED. Abdomen/Pelvis CT (03/15/16)-----> 1. Compared to the prior exam, the previously noted gas bubbles in the wall of the cecum have resolved. 2. Otherwise, no other new or significant changes compared to the prior study. S/P Relistor (03/16), colace, miralax, lactulose, senokot, reglan with good results. KUB (03/20/16)------> feeding tube in tip within the duodenum, no dilated loops of bowel. Abdomen is distended, but soft, slowly improving. Currently on Reglan, Senokot, Colace. + BM. Tolerating TF. Lactulose added - Biliary obstruction/cholangitis secondary to pancreatic head edema. S/P ERCP (03/04/16)-----> stricture in the distal common bile duct, normal intrahepatic ducts, normal pancreatic ducts, patent cystic duct. S/P stent placement. LFTs are stable. - Acute cholecystitis. S/P GS evaluation. - Acute sepsis, Leukocytosis. Abx per ID. Improving. - Acute renal failure. Resolved. Off HD. - Resp. Insuff. Resp. shallow/tachypneic. Diminished breath sounds. - Anemia. H/H 7.1/22.4. Recommendations - Nepro at 40cc/hr - Abdominal xray. If Dobhoff is still in the stomach tomorrow, then will need to be advanced by diagnostic radiology for post pyloric feedings - Cont. Reglan - Cont. Senokot - Cont. Colace - Lactulose added - Abx per ID - S/P Relistor (03/16/16) - CCM following - Supportive care - Further recommendations to follow - Patient seen and examined by Dr. Gusman and myself and this note is written on his behalf. (Nakita Crowe) Physician Comments Patient was seen and examined, agree with above note, continue current care. ( Eli Gusman MD) Nakita Crowe Mar 25, 2016 15:42 Eli Gusman MD Mar 25, 2016 17:02
[2016-03-25] MEDS ORDERED: CALCITONIN SALMON INJ 400 UNITS/2 ML VIAL SQ ONE (16:15)
[2016-03-25 16:48] LABS: HEMATOCRIT 24.8 % (35.0-46.0); MEAN CELL VOLUME 88.1 FL (80.0-100.0); MEAN CORPUSCULAR HEMOGLOBIN 28.6 PG (27.0-34.0); MEAN CORPUSCULAR HGB CONC 32.5 % (32.0-36.0); PLATELET COUNT 217 TH/MM3 (150-450); RED BLOOD COUNT 2.82 MIL/MM3 (4.00-5.30); RED CELL DISTRIBUTION WIDTH 16.5 % (11.6-17.2); REVIEW FLAG FINAL; WHITE BLOOD COUNT 8.3 TH/MM3 (4.0-11.0)
--- NOTE | 2016-03-25 16:56 | HHI.CCPN ---
Subjective Remarks/Hospital Course > 48 hour history of epigastric pain, vomiting. GB US reveals cholecystitis with stones in neck. MRCP - pancreatitis, ducts not dilated. Received stent into a bile duct secondary to stricture due to pancreatic head edema. [facility] [place] re -consulted today 03/12 due to patient's tachypnea and abdominal distention. 03/13 - Patient appears significantly more acutely ill since I last saw her . Answers questions in 1-2 word responses. Resting in bed with quite distant added. Diffuse in all 4 quadrants abdominal stated to be Pain 10 out of 10. Tube feeds on hold. Decreased urine output noted. 03/14: Tmax 100. Currently 98.9. Status post -4 L hemodialysis yesterday. Breathing appears intermittently tachypneic and labored however she is more alert today and able to verbally complete sentences today. No bowel movement yesterday. Tube feeds currently off. 03/15: Tmax 102. Currently 100.5. Status post -3.5 L hemodialysis today. More lethargic. TPN to be initiated today. 03/16: Afebrile overnight. Started on TPN with elevated blood sugars. Currently on insulin drip. 2 large bowel movements yesterday. She is making adequate urine output. Pain better controlled today. White cell count has decreased slowly. Clinically appears better. 03/17: Afebrile. Blood sugars are stabilized. White cell count is stabilized. Positive BM yesterday. Abdomen less distended but abdominal pressure still in the low 20s. Arousable and follows commands. 03/18: Tmax 100.1. 2 BMs yesterday. Currently resting in bed. Abdominal pressures 17-19 overnight. Arousable and will follow commands. 03/19/16: Tmax 100.2. Positive BM. -3 L hemodialysis yesterday. Patient agitated overnight. Currently received Henderson and sedated. Complains of abdominal pain. Abdomen appears much less distended than previously. 03/20/16: Tmax 101.1. Currently 101. More lethargic this a.m. likely secondary to fevers. White cell count continues to trend downward. A.m. labs pending. Tolerating tube feed. Positive BM. 03/21/16: Tmax 101.1. Currently 101. White cell count has normalized. Tolerating tube feeding. Positive BM. Hemodialysis catheter removed yesterday. 03/22/16: Tmax 101.5. Currently 99. Currently out of bed to chair. White cell count is stabilized. Tolerating tube feeding as been increased to 40 cc an hour. No bowel movement 2 days 03/23/16: Tmax 101.2. Currently afebrile. Resting in bed. Tube feeds are stable at 40 cc an hour. Positive BM. More awake and alert today. 03/24: Afebrile. Tolerating tube feeds at 40 cc an hour. Positive BM. Will initiate oral diet. TPN is discontinued. Subjective 03/25: Afebrile. Tolerating tube feeding. Positive BM. Tolerating nectar thick liquid diet. Currently resting in chair in no acute distress. Objective Vital Signs Date Time Temp Pulse Resp B/P Pulse Ox O2 Delivery O2 Flow Rate FiO2 03/25/16 14:00 76 03/25/16 12:00 98.3 26 150/66 97 03/25/16 08:56 Nasal Cannula 2.50 Intake and Output 03/24/16 03/24/16 03/25/16 08:00 16:00 00:00 Intake Total 1208 ml 1102 ml 1675 ml Output Total 425 ml 1000 ml 700 ml Balance 783 ml 102 ml 975 ml Result Diagram: 03/25/16 1630 03/24/16 0429 Imaging Last Impressions Abdomen X-Ray 03/24/16 0000 Signed Impressions: Service Date/Time: Thursday, March 24, 2016 08:12 - CONCLUSION: Weighted feeding tube tip is in the stomach. Prominent gaseous distention of the colon Darrian Engel MD Chest X-Ray 03/23/16 0000 Signed Impressions: Service Date/Time: March 11:56 - CONCLUSION: Slight interval worsening in aeration Darrian Engel MD Lower Extremity Ultrasound 03/20/16 0000 Signed Impressions: Service Date/Time: Sunday, March 20, 2016 14:32 - CONCLUSION: No DVT of either lower extremity. Darrian Leary MD Abdomen/Pelvis CT 03/15/16 0000 Signed Impressions: Service Date/Time: Tuesday, March 15, 2016 15:26 - CONCLUSION: 1. Compared to the prior exam, the previously noted gas bubbles in the wall of the cecum have resolved. 2. Otherwise, no other new or significant changes compared to the prior study. Wliver Bond MD Head CT 03/14/16 0000 Signed Impressions: Service Date/Time: Monday, March 14, 2016 16:13 - CONCLUSION: Normal examination. Jere Toro MD Renal Ultrasound 03/13/16 0000 Signed Impressions: Service Date/Time: Sunday, March 13, 2016 16:39 - CONCLUSION: Unremarkable renal ultrasound. Abisai Lundy MD GI Procedure 03/05/16 0000 Signed Impressions: Service Date/Time: Friday, March 04, 2016 23:02 - CONCLUSION: ERCP as above. Vidal Ye MD Gall Bladder Ultrasound 03/04/16 0000 Signed Impressions: Service Date/Time: Friday, March 04, 2016 19:36 - CONCLUSION: 1. Thick-walled gallbladder with some pericholecystic fluid and multiple gallstones in the region of the neck. The findings are suggestive of acute cholecystitis. Clinical correlation is recommended. 2. Fatty liver. 3. Minimal ascites within Polanco's pouch. 4. Poor visualization of the pancreas due to shadowing bowel gas. Odilon Butler MD Cholangiopancreatography MRI 03/04/16 0000 Signed Impressions: Service Date/Time: Friday, March 04, 2016 18:24 - CONCLUSION: 1. Extensive edema throughout the retroperitoneum and pancreas. No abscess or pseudocyst. 2. Tiny layering gallstones within the gallbladder. No discrete common bile duct stone. There is tapering of the common bile duct within the pancreatic head felt to be secondary to the edema within the pancreas. No discrete mass or choledocholithiasis. No intrahepatic or extrahepatic ductal dilatation. Maxwell Hsu Jr., MD Objective Remarks GENERAL: 66-year-old AA female, morbidly obese, critically ill appearing, currently sitting in bariatric chair in no acute distress SKIN: Warm and dry. No rash HEAD: Atraumatic. Normocephalic. EYES: Pupils equal and round around 3 mm bilaterally and reactive. No scleral icterus. No injection or drainage. ENT: No nasal bleeding or discharge. Mucous membranes pink and moist. Keofed tube in right nares NECK: Trachea midline. No JVD. CARDIOVASCULAR: Regular rate and rhythm. S1, S2. No S4. Without murmur RESPIRATORY: Distant breath sounds. Symmetrical excursion. Essentially clear to auscultation GASTROINTESTINAL: Abdomen obese. Less tender to palpation in all quadrants. Hypoactive bowel sounds rectal tube has been removed MUSCULOSKELETAL: Extremities with trace bilateral lower extremity pedal edema/ anasarca-like improved since admission. No obvious deformities. NEUROLOGICAL: Awake and alert to person and place. No obvious cranial nerve deficits. Motor grossly within normal limits. Five out of 5 muscle strength in the arms and legs. Currently annunciating better today PSYCHIATRIC: Depressed mood and affect. Urinary Catheter: Yes Assessment to: Continue Azul insert reason: ICU Pt Getting Diuretics Vascular Central Line Catheter: Yes Assessment to: Continue Date of Insertion: Mar 22, 2016 Line: PICC Side: Left Location: Antecubital A/P Problem List: (1) Severe sepsis with acute organ dysfunction ICD Code: A41.9 Status: Acute (2) Cholangitis ICD Code: K83.0 Status: Acute (3) Hypertensive urgency ICD Code: I16.0 Status: Acute Assessment and Plan Neuro/Psych: Pain management for acute pancreatitis Acetaminophen for fever Henderson 5/325 one every 4 hours/ morphine 2 mg every 3 hours hours when necessary for pain management CV: Severe sepsis from cholangitis and pancreatitis Hypertension by history Dyslipidemia - Holding home medications lisinopril/HCTZ in light of acute kidney injury. - Noted elevated HDL/LDL/total cholesterol - triglycerides within normal limits Consider statin when appropriate once LFTs normalize - As needed labetalol, hydralazine, Nitropaste for blood pressure control of present - Previously on metoprolol 50 mg twice a day with some SVT during this hospitalization. Continue IV Lopressor 5 milligrams every 4 hours with scheduled Nitropaste 2 inches every 6 hours while nothing by mouth - 2-D echo EF 55 - 60%. Trace ANNIE 39 mmHg Resp: Acute respiratory insufficiency likely secondary to volume overload - Nasal cannula to maintain saturations greater than equal to 92%. Currently on 2 L - Incentive spirometry while awake - Chest x-ray 03/14 after line placement reveals possible right lower lobe effusion/atelectasis. Chest x-ray 03/20 essentially clear with no acute cardiopulmonary findings GI: Status post ERCP/placement of stenting, bile duct secondary to stenosis Acute necrotizing Pancreatitis Possible pneumatosis intestinalis Transaminitis Hypo-albuminemia CT abdomen/pelvis 03/12 revealed multiple gallstones/worsening pancreatitis and possible pneumatosis intestinalis involving the cecum and the ascending colon Dr. Ceballos/general surgery following Discussed with Dr. Moulton yesterday. Agreed with hemodialysis and attempt to remove extra cellular fluid while maintaining intravascular volume. Difficult situation 14-24 intra-abdominal bladder pressures - Dr. Lucero/GI performed ERCP 03/04 with stent placement, distal common bile duct 8.5 Nep[place] 7 cm secondary to stricture - Ultrasound revealed thickening in the gallbladder with pericholecystic fluid. Tiny gallstones noted. 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 manager workers compensation sent appropriate paperwork to review. I called transfer center. If unavailable will contact [facility] for another option. Discussed with surgery 03/18. Currently with watchful waiting. He will contact specialist pancreatic surgeons at [facility] and [facility] if appropriate. Surgery signed off as a 03/22. Reconsult if necessary Continue with rectal tube to LIWS TPN was discontinued Tube feeds with Nepro at 40 cc an hour per general surgery advanced per general surgery [place] thickened liquid diet per speech therapy : Azul if needed for accurate I's and O's in critically ill patient Endo: Hyperglycemia of critical illness Sliding-scale insulin/high with Accu-Cheks every 4 hours. Renal: LOI - resolved - Creatinine appears to be stabilizing - Avoid nephrotoxic drugs. Noted lisinopril/hctz held - Nephrology consultation following when necessary as needed -Negative urine eosinophils renal ultrasound without obstruction - Follow BMP in a.m. Heme/Onc: History of breast cancer status post right mastectomy Leukocytosis Normocytic anemia CBC/coags ordered this a.m. Currently holding Letrozole 2.5 mg daily with elevated LFTs. Resume when clinically indicated ID: Possible necrotizing pancreatitis/pneumatosis intestinalis Day #12 micafungin/Merrem ID consult appreciated Pertinent cultures 03/04 - urine culture - negative 03/04 - blood cultures 2 - negative 03/07 - blood cultures 2 - negative 03/13 - blood cultures 2 -no growth 03/15 - urine culture -no growth 1/2 - blood cultures 2 - no growth 1/2 - urine cultures - negative FEN: Hypercalcemia Hypernatremia Replace electrolytes as clinically indicated 1 dose of calcitonin for elevated calcium. Daily calcium is removed from TPN. Currently on Nepro at 40 cc an hour general surgery Currently on free water 250 cc every 4 hours MSK: Out of bed/PT evaluate and treat Access PICC line day #3 -Right IJ CVL day 10 placed 03/14 and removed 1/ - Left IJ hemodialysis catheter placed 03/13 and removed 1/ Prophylaxis - GI - Protonix - DVT - SCD/heparin Critical Care: The total critical care time was 35 minutes. Time to perform other separately billable procedures was not included in the critical care time. Rosalio Bowie MD Mar 25, 2016 16:56
[2016-03-25 17:06] LABS: BICARBONATE 29.7 MEQ/L (21.0-32.0); MAGNESIUM 1.8 MG/DL (1.5-2.5); POTASSIUM 3.2 MEQ/L (3.5-5.1); TOTAL PROTEIN SPE 7.2 GM/DL (6.0-7.6)
[2016-03-25] MEDS ORDERED: POTASSIUM CL 40 MEQ/30 ML LIQ UDC PO ONE (17:45)
[2016-03-25] MEDS: MAGNESIUM SULFATE 1 GM PREMIX 100 ML IV SCH ×2 (18:29→19:56)
[2016-03-26] VITALS (14 sets, daily range): BP systolic 145–171; BP diastolic 64–76; PULSE 64–95; RESP 22–28; TEMP 98.1–99.2; O2SAT 95–98
[2016-03-26] MEDS: INSULIN NovoLIN REGULAR SUPPLEMENTAL SCALE SQ SCH ×6 (00:32→20:47)
[2016-03-26] MEDS: MEROPENEM INJ 1,000 MG in SODIUM CHLORIDE 0.9% INJ 100 ML IV SCH ×3 (02:00→18:00)
[2016-03-26] MEDS: CHLORHEXIDINE GLUCONATE 2 % 1 PACK (2 CLOTHS) TOP SCH (03:55)
[2016-03-26] MEDS: FREE WATER G-TUBE SCH ×6 (04:00→20:00)
[2016-03-26 05:40] LABS: AUTOMATED NEUTROPHIL # 5.3 TH/MM3 (1.8-7.7); BASOPHIL # 0.1 TH/MM3 (0-0.2); BASOPHIL % 0.6 % (0.0-2.0); EOSINOPHIL # 0.2 TH/MM3 (0-0.4); EOSINOPHIL % 2.3 % (0.0-4.0); HEMATOCRIT 24.1 % (35.0-46.0); HEMO FLAGS DIFF FINAL; LYMPH % 27.1 % (9.0-44.0); LYMPHOCYTE # 2.3 TH/MM3 (1.0-4.8); MEAN CELL VOLUME 87.9 FL (80.0-100.0); MEAN CORPUSCULAR HEMOGLOBIN 29.2 PG (27.0-34.0); MEAN CORPUSCULAR HGB CONC 33.2 % (32.0-36.0); MONO % 6.5 % (0.0-8.0); NEUT % 63.5 % (16.0-70.0); PLATELET COUNT 202 TH/MM3 (150-450); RED BLOOD COUNT 2.75 MIL/MM3 (4.00-5.30); RED CELL DISTRIBUTION WIDTH 15.7 % (11.6-17.2); WHITE BLOOD COUNT 8.4 TH/MM3 (4.0-11.0)
[2016-03-26] MEDS: HEPARIN SODIUM - SQ 10,000 UNITS/ML VIAL SQ SCH ×3 (05:49→20:48)
[2016-03-26] MEDS: METOPROLOL TARTRATE 25 MG TAB PO SCH ×2 (05:50→14:32)
[2016-03-26] MEDS: ISOSORBIDE DINITRATE 10 MG TAB PO SCH ×3 (05:50→20:12)
[2016-03-26] MEDS: METOCLOPRAMIDE HCL 10 MG/2 ML VIAL IV PUSH SCH ×3 (05:51→20:11)
[2016-03-26 06:20] LABS: ALKALINE PHOSPHATASE 188 U/L (45-117); ALT (GPT) 45 U/L (10-53); ANION GAP 5 MEQ/L (5-15); AST (GOT) 60 U/L (15-37); BICARBONATE 30.5 MEQ/L (21.0-32.0); BLOOD UREA NITROGEN 29 MG/DL (7-18); CHLORIDE 116 MEQ/L (98-107); GLOMERULAR FILTRATION RATE 126 ML/MIN (>89); POTASSIUM 3.2 MEQ/L (3.5-5.1); SODIUM (NA) 151 MEQ/L (136-145); TOTAL BILIRUBIN ADULT 0.4 MG/DL (0.2-1.0)
--- NOTE | 2016-03-26 07:02 | RADRPT ---
EXAM DATE/TIME: 03/26/2016 05:15 [facility] COMPARISON: CHEST SINGLE AP, March 23, 2016, 11:56. INDICATIONS : Evaluate after respiratory failure MEDICAL HISTORY : Hypertension. Carcinoma, breast. SURGICAL HISTORY : Hysterectomy. Mastectomy, right. ENCOUNTER: Subsequent ACUITY: 2 weeks PAIN SCORE: Non-responsive. LOCATION: Bilateral chest FINDINGS: Metallic tip feeding tube projects over the stomach. Left PICC line catheter MID superior vena cava. There is persistent consolidation in left lower lung with loss of delineation of the entire left he midiaphragm. Partial consolidative infiltrates in the perihilar region bilaterally is stable in appe arance. CONCLUSION: Stable bilateral perihilar infiltrates and left lower lobe consolidation. Maxwell Choi MD on March 26, 2016 at 7:00 Board Certified Radiologist. This report was verified electronically.
--- NOTE | 2016-03-26 07:04 | RADRPT ---
EXAM DATE/TIME: 03/26/2016 05:18 [facility] COMPARISON: ABDOMEN SINGLE VIEW, March 24, 2016, 8:12. INDICATIONS : Evaluate and follow-up ileus. MEDICAL HISTORY : Hypertension. Renal failure, chronic. Carcinoma, breast. SURGICAL HISTORY : Mastectomy, right. Hysterectomy. ENCOUNTER: Subsequent ACUITY: 2 weeks PAIN SCORE: Non-responsive. LOCATION: Bilateral Abdomen FINDINGS: The metallic tip of the feeding tube has changed in position and now projects over the stomach (previ ously projected over the duodenum or gastric antrum). There is consolidation medial left lower lung with loss of delineation of the left hemidiaphragm. Biliary stent in place. There are some scattere d gas-containing loops of bowel which are less prominent and less distended when compared to KUB on . The largest loop measures 6.5 cm in width today. CONCLUSION: Improving distended loops of bowel. The metallic tip feeding tube has changed position and is now pr ojected in the stomach. Maxwell Choi MD on March 26, 2016 at 7:01 Board Certified Radiologist. This report was verified electronically.
[2016-03-26] MEDS: PANTOPRAZOLE SODIUM 40 MG VIAL IV SCH (08:01)
[2016-03-26] MEDS: DOCUSATE SODIUM 100 MG CAP PO SCH ×2 (08:02→20:11)
[2016-03-26] MEDS: SODIUM CHLORIDE 0.9% FLUSH 5 ML FLUSH IVF SCH (08:02)
[2016-03-26] MEDS: SODIUM CHLORIDE 0.9% FLUSH 5 ML FLUSH IV FLUSH SCH ×2 (08:02→20:11)
[2016-03-26] MEDS: LACTULOSE SYRUP 20 GM/30 ML CUP PO SCH (08:03)
[2016-03-26] MEDS: SENNOSIDES 8.6 MG TAB PO SCH ×2 (08:03→20:11)
[2016-03-26] MEDS: MICAFUNGIN IV SCH ×2 (11:11)
[2016-03-26] MEDS: WATER IV SCH ×2 (11:11)
[2016-03-26] MEDS: DEXTROSE 5% IV SCH ×2 (11:11)
[2016-03-26] MEDS ORDERED: POTASSIUM CHLOR 20 MEQ PREMIX 100 ML IV PRN ×2 (16:00)
[2016-03-26] MEDS ORDERED: POTASSIUM PHOSPHATE MONOBASIC 500 MG TAB PO PRN (16:00)
[2016-03-26] MEDS ORDERED: MAGNESIUM SULFATE INJ 2 GM in SODIUM CHLORIDE 0.9% INJ 96 ML IV PRN (16:00)
[2016-03-26] MEDS ORDERED: POTASSIUM PHOSPHATE INJ 30 MMOL in SODIUM CHLOR 0.9% 250 ML INJ 250 ML IV PRN (16:00)
[2016-03-26] MEDS ORDERED: MAGNESIUM SULFATE INJ 4 GM in SODIUM CHLORIDE 0.9% INJ 92 ML IV PRN (16:00)
[2016-03-26] MEDS ORDERED: POTASSIUM PHOSPHATE MONOBASIC 500 MG TAB PO/TUBE PRN (16:00)
[2016-03-26] MEDS ORDERED: POTASSIUM CHLOR 40 MEQ PREMIX 100 ML IV ONE (16:00)
[2016-03-26] MEDS ORDERED: POTASSIUM CL 40 MEQ/30 ML LIQ UDC PO ONE (16:00)
[2016-03-26] MEDS ORDERED: SODIUM PHOSPHATE INJ 30 MMOL in SODIUM CHLOR 0.9% 250 ML INJ 240 ML IV PRN (16:00)
[2016-03-26] MEDS ORDERED: MAGNESIUM OXIDE 400 MG TAB PO PRN (16:00)
[2016-03-26] MEDS ORDERED: POTASSIUM CL 40 MEQ/30 ML LIQ UDC PO/TUBE PRN ×2 (16:00)
[2016-03-26] MEDS ORDERED: POTASSIUM CHLOR 40 MEQ PREMIX 100 ML IV PRN ×2 (16:00)
[2016-03-26] MEDS ORDERED: CALCITONIN SALMON INJ 400 UNITS/2 ML VIAL SQ ONE (18:45)
--- NOTE | 2016-03-26 19:21 | HHI.CCPN ---
Subjective Remarks/Hospital Course > 48 hour history of epigastric pain, vomiting. GB US reveals cholecystitis with stones in neck. MRCP - pancreatitis, ducts not dilated. Received stent into a bile duct secondary to stricture due to pancreatic head edema. [facility] re -consulted today 03/12 due to patient's tachypnea and abdominal distention. 03/13 - Patient appears significantly more acutely ill since I last saw her . Answers questions in 1-2 word responses. Resting in bed with quite distant added. Diffuse in all 4 quadrants abdominal stated to be Pain 10 out of 10. Tube feeds on hold. Decreased urine output noted. 03/14: Tmax 100. Currently 98.9. Status post -4 L hemodialysis yesterday. Breathing appears intermittently tachypneic and labored however she is more alert today and able to verbally complete sentences today. No bowel movement yesterday. Tube feeds currently off. 03/15: Tmax 102. Currently 100.5. Status post -3.5 L hemodialysis today. More lethargic. TPN to be initiated today. 03/16: Afebrile overnight. Started on TPN with elevated blood sugars. Currently on insulin drip. 2 large bowel movements yesterday. She is making adequate urine output. Pain better controlled today. White cell count has decreased slowly. Clinically appears better. 03/17: Afebrile. Blood sugars are stabilized. White cell count is stabilized. Positive BM yesterday. Abdomen less distended but abdominal pressure still in the low 20s. Arousable and follows commands. 03/18: Tmax 100.1. 2 BMs yesterday. Currently resting in bed. Abdominal pressures 17-19 overnight. Arousable and will follow commands. 03/19/16: Tmax 100.2. Positive BM. -3 L hemodialysis yesterday. Patient agitated overnight. Currently received [place] and sedated. Complains of abdominal pain. Abdomen appears much less distended than previously. 03/20/16: Tmax 101.1. Currently 101. More lethargic this a.m. likely secondary to fevers. White cell count continues to trend downward. A.m. labs pending. Tolerating tube feed. Positive BM. 03/21/16: Tmax 101.1. Currently 101. White cell count has normalized. Tolerating tube feeding. Positive BM. Hemodialysis catheter removed yesterday. 03/22/16: Tmax 101.5. Currently 99. Currently out of bed to chair. White cell count is stabilized. Tolerating tube feeding as been increased to 40 cc an hour. No bowel movement 2 days 03/23/16: Tmax 101.2. Currently afebrile. Resting in bed. Tube feeds are stable at 40 cc an hour. Positive BM. More awake and alert today. 03/24: Afebrile. Tolerating tube feeds at 40 cc an hour. Positive BM. Will initiate oral diet. TPN is discontinued. 03/25: Afebrile. Tolerating tube feeding. Positive BM. Tolerating nectar thick liquid diet. Currently resting in chair in no acute distress. Subjective 03/26: Afebrile. One episode of dysrhythmia. No potassium is below 3.2. Replace with 80 mEq potassium chloride IV half by mouth. Recheck later this evening. Currently resting in bed in no acute distress. Intermittently tachypnea. Pain appears controlled Objective Vital Signs Date Time Temp Pulse Resp B/P Pulse Ox O2 Delivery O2 Flow Rate FiO2 03/26/16 18:00 77 03/26/16 16:00 98.1 25 171/76 95 03/26/16 09:00 Nasal Cannula 2.00 Intake and Output 03/25/16 03/25/16 03/26/16 08:00 16:00 00:00 Intake Total 1315 ml 1755 ml 1752 ml Output Total 450 ml 700 ml 900 ml Balance 865 ml 1055 ml 852 ml Result Diagram: 03/26/16 0430 03/26/16 0430 Imaging Last Impressions Chest X-Ray 03/26/16 0600 Signed Impressions: Service Date/Time: Saturday, March 26, 2016 05:15 - CONCLUSION: Stable bilateral perihilar infiltrates and left lower lobe consolidation. Maxwell Choi MD Abdomen X-Ray 03/26/16 0600 Signed Impressions: Service Date/Time: Saturday, March 26, 2016 05:18 - CONCLUSION: Improving distended loops of bowel. The metallic tip feeding tube has changed position and is now projected in the stomach. Maxwell Choi MD Lower Extremity Ultrasound 03/20/16 0000 Signed Impressions: Service Date/Time: Sunday, March 20, 2016 14:32 - CONCLUSION: No DVT of either lower extremity. Darrian Leary MD Abdomen/Pelvis CT 03/15/16 0000 Signed Impressions: Service Date/Time: Tuesday, March 15, 2016 15:26 - CONCLUSION: 1. Compared to the prior exam, the previously noted gas bubbles in the wall of the cecum have resolved. 2. Otherwise, no other new or significant changes compared to the prior study. Wilver Bond MD Head CT 03/14/16 0000 Signed Impressions: Service Date/Time: Monday, March 14, 2016 16:13 - CONCLUSION: Normal examination. Jere Toro MD Renal Ultrasound 03/13/16 0000 Signed Impressions: Service Date/Time: Sunday, March 13, 2016 16:39 - CONCLUSION: Unremarkable renal ultrasound. K. Stephen Lundy MD GI Procedure 03/05/16 0000 Signed Impressions: Service Date/Time: Friday, March 04, 2016 23:02 - CONCLUSION: ERCP as above. Vidal Ye MD Gall Bladder Ultrasound 03/04/16 0000 Signed Impressions: Service Date/Time: Friday, March 04, 2016 19:36 - CONCLUSION: 1. Thick-walled gallbladder with some pericholecystic fluid and multiple gallstones in the region of the neck. The findings are suggestive of acute cholecystitis. Clinical correlation is recommended. 2. Fatty liver. 3. Minimal ascites within Polanco's pouch. 4. Poor visualization of the pancreas due to shadowing bowel gas. Odilon Butler MD Cholangiopancreatography MRI 03/04/16 0000 Signed Impressions: Service Date/Time: Friday, March 04, 2016 18:24 - CONCLUSION: 1. Extensive edema throughout the retroperitoneum and pancreas. No abscess or pseudocyst. 2. Tiny layering gallstones within the gallbladder. No discrete common bile duct stone. There is tapering of the common bile duct within the pancreatic head felt to be secondary to the edema within the pancreas. No discrete mass or choledocholithiasis. No intrahepatic or extrahepatic ductal dilatation. Maxwell Hsu Jr., MD Objective Remarks GENERAL: 66-year-old AA female, morbidly obese, critically ill appearing, currently resting in bed in no acute distress SKIN: Warm and dry. No rash HEAD: Atraumatic. Normocephalic. EYES: Pupils equal and round around 3 mm bilaterally and reactive. No scleral icterus. No injection or drainage. ENT: No nasal bleeding or discharge. Mucous membranes pink and moist. Keofed tube in right nares NECK: Trachea midline. No JVD. CARDIOVASCULAR: Regular rate and rhythm. S1, S2. No S4. Without murmur RESPIRATORY: Distant breath sounds. Symmetrical excursion. Essentially clear to auscultation GASTROINTESTINAL: Abdomen obese. Less tender to palpation in all quadrants. Hypoactive bowel sounds. MUSCULOSKELETAL: Extremities with trace bilateral lower extremity pedal edema/ anasarca-like improved since admission. No obvious deformities. NEUROLOGICAL: Awake and alert to person and place. No obvious cranial nerve deficits. Motor grossly within normal limits. Five out of 5 muscle strength in the arms and legs. Urinary Catheter: Yes Assessment to: Continue Azul insert reason: Prolonged Immobilization Vascular Central Line Catheter: Yes Assessment to: Continue Date of Insertion: Mar 22, 2016 Line: PICC Side: Left Location: Antecubital A/P Problem List: (1) Severe sepsis with acute organ dysfunction ICD Code: A41.9 Status: Acute (2) Cholangitis ICD Code: K83.0 Status: Acute (3) Hypertensive urgency ICD Code: I16.0 Status: Acute Assessment and Plan Neuro/Psych: Pain management for acute pancreatitis Acetaminophen for fever [place] 5/325 one every 4 hours/ morphine 2 mg every 3 hours hours when necessary for pain management CV: Severe sepsis from cholangitis and pancreatitis Hypertension by history Dyslipidemia - Holding home medications lisinopril/HCTZ 20/25 in light of acute kidney injury. - Noted elevated HDL/LDL/total cholesterol - triglycerides within normal limits Consider statin when appropriate once LFTs normalize - As needed labetalol, hydralazine, Nitropaste for blood pressure control of present - Previously on metoprolol 50 mg twice a day with some SVT during this hospitalization. Continue 50 mg every 8 hours with Imdur 10 every 8 and hydralazine 25 every 8 - 2-D echo EF 55 - 60%. Trace ANNIE 39 mmHg Resp: Acute respiratory insufficiency likely secondary to volume overload - Nasal cannula to maintain saturations greater than equal to 92%. Currently on 2 L - Incentive spirometry while awake - Chest x-ray 03/14 after line placement reveals possible right lower lobe effusion/atelectasis. --Chest x-ray 03/26 with left lower lobe infiltrate GI: Status post ERCP/placement of stenting, bile duct secondary to stenosis Acute necrotizing Pancreatitis Possible pneumatosis intestinalis Transaminitis Hypo-albuminemia CT abdomen/pelvis 03/12 revealed multiple gallstones/worsening pancreatitis and possible pneumatosis intestinalis involving the cecum and the ascending colon Dr. Ceballos/general surgery following Discussed with Dr. Moulton yesterday. Agreed with hemodialysis and attempt to remove extra cellular fluid while maintaining intravascular volume. Difficult situation 14-24 intra-abdominal bladder pressures - Dr. Lucero/GI performed ERCP 03/04 with stent placement, distal common bile duct 8.5 [place] 7 cm secondary to stricture - Ultrasound revealed thickening in the gallbladder with pericholecystic fluid. Tiny gallstones noted. 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 precast worker sent appropriate paperwork to review. I called transfer center. If unavailable will contact [facility] for another option. Discussed with surgery 03/18. Currently with watchful waiting. He will contact specialist pancreatic surgeons at [facility] and [facility] if appropriate. Surgery signed off as a 03/22. Reconsult if necessary Continue with rectal tube to LIWS TPN was discontinued Tube feeds with Nepro at 40 cc an hour per general surgery advanced per general surgery [place] thickened liquid diet per speech therapy : Azul if needed for accurate I's and O's in critically ill patient Endo: Hyperglycemia of critical illness Sliding-scale insulin/high with Accu-Cheks every 4 hours. Renal: LOI - resolved - Creatinine appears to be stabilizing - Avoid nephrotoxic drugs. Noted lisinopril/hctz held - Nephrology consultation following when necessary as needed -Negative urine eosinophils renal ultrasound without obstruction - Follow BMP in a.m. Heme/Onc: History of breast cancer status post right mastectomy Leukocytosis Normocytic anemia CBC stable around 8 Currently holding Letrozole 2.5 mg daily with elevated LFTs. Resume when clinically indicated ID: Possible necrotizing pancreatitis/pneumatosis intestinalis Day #13 micafungin/Merrem ID consult appreciated Pertinent cultures 03/04 - urine culture - negative 03/04 - blood cultures 2 - negative 03/07 - blood cultures 2 - negative 03/13 - blood cultures 2 -no growth 03/15 - urine culture -no growth 03/20 - blood cultures 2 - no growth / - urine cultures - negative FEN: Hypercalcemia Hypopotassemia Hypernatremia Replace electrolytes as clinically indicated 80 mEq potassium chloride 1. Recheck Currently on Nepro at 40 cc an hour general surgery Currently on free water 250 cc every 4 hours Checking PTH, PTH RP, and vitamin D analogs and SPEP. 1 dose of calcitonin salmon today. MSK: Out of bed/PT evaluate and treat Access PICC line day #5 -Right IJ CVL day 10 placed 03/14 and removed 03/23 - Left IJ hemodialysis catheter placed 03/13 and removed 03/20 Prophylaxis - GI - Protonix - DVT - SCD/heparin Critical Care: The total critical care time was 35 minutes. Time to perform other separately billable procedures was not included in the critical care time. Rosalio Bowie MD Mar 26, 2016 19:20
[2016-03-26] MEDS: METOPROLOL TARTRATE 50 MG TAB PO SCH (20:16)
[2016-03-26] MEDS: hydrALAZINE HCL 10 MG TAB PO SCH (20:16)
[2016-03-26] MEDS: POTASSIUM PHOSPHATE/SODIUM PHOSPHATE 250 MG TAB PO SCH (20:48)
[2016-03-27] VITALS (14 sets, daily range): BP systolic 116–169; BP diastolic 65–83; PULSE 61–85; RESP 22–29; TEMP 97–99.3; O2SAT 96–100
[2016-03-27] MEDS: INSULIN NovoLIN REGULAR SUPPLEMENTAL SCALE SQ SCH ×6 (00:04→20:00)
[2016-03-27] MEDS: MEROPENEM INJ 1,000 MG in SODIUM CHLORIDE 0.9% INJ 100 ML IV SCH ×3 (02:14→17:25)
[2016-03-27] MEDS: FREE WATER G-TUBE SCH ×6 (04:00→20:08)
[2016-03-27] MEDS: CHLORHEXIDINE GLUCONATE 2 % 1 PACK (2 CLOTHS) TOP SCH (04:00)
[2016-03-27 05:00] LABS: AUTOMATED NEUTROPHIL # 4.8 TH/MM3 (1.8-7.7); BASOPHIL % 0.7 % (0.0-2.0); EOSINOPHIL # 0.1 TH/MM3 (0-0.4); EOSINOPHIL % 1.1 % (0.0-4.0); HEMATOCRIT 26.7 % (35.0-46.0); LYMPH % 25.5 % (9.0-44.0); LYMPHOCYTE # 1.9 TH/MM3 (1.0-4.8); MEAN CELL VOLUME 87.7 FL (80.0-100.0); MEAN CORPUSCULAR HEMOGLOBIN 27.5 PG (27.0-34.0); MEAN CORPUSCULAR HGB CONC 31.4 % (32.0-36.0); MONO % 7.3 % (0.0-8.0); NEUT % 65.4 % (16.0-70.0); PLATELET COUNT 221 TH/MM3 (150-450); RED BLOOD COUNT 3.04 MIL/MM3 (4.00-5.30); RED CELL DISTRIBUTION WIDTH 15.9 % (11.6-17.2); WHITE BLOOD COUNT 7.3 TH/MM3 (4.0-11.0)
[2016-03-27 05:05] LABS: HEMO FLAGS AUTO DIFF
[2016-03-27] MEDS: METOCLOPRAMIDE HCL 10 MG/2 ML VIAL IV PUSH SCH ×3 (05:25→21:50)
[2016-03-27] MEDS: METOPROLOL TARTRATE 50 MG TAB PO SCH ×3 (05:25→21:53)
[2016-03-27] MEDS: HEPARIN SODIUM - SQ 10,000 UNITS/ML VIAL SQ SCH ×3 (05:25→21:54)
[2016-03-27] MEDS: ISOSORBIDE DINITRATE 10 MG TAB PO SCH ×3 (05:25→21:53)
[2016-03-27] MEDS: hydrALAZINE HCL 10 MG TAB PO SCH ×3 (05:25→21:51)
[2016-03-27] MEDS: POTASSIUM PHOSPHATE/SODIUM PHOSPHATE 250 MG TAB PO SCH ×2 (05:26→13:17)
[2016-03-27 05:32] LABS: ALKALINE PHOSPHATASE 201 U/L (45-117); ALT (GPT) 44 U/L (10-53); ANION GAP 4 MEQ/L (5-15); AST (GOT) 53 U/L (15-37); BICARBONATE 31.7 MEQ/L (21.0-32.0); BLOOD UREA NITROGEN 23 MG/DL (7-18); CHLORIDE 119 MEQ/L (98-107); GLOMERULAR FILTRATION RATE 153 ML/MIN (>89); MAGNESIUM 1.8 MG/DL (1.5-2.5); POTASSIUM 3.5 MEQ/L (3.5-5.1); SODIUM (NA) 155 MEQ/L (136-145); TOTAL BILIRUBIN ADULT 0.4 MG/DL (0.2-1.0)
[2016-03-27 07:48] LABS: PLATELET ESTIMATE SMEAR NORMAL (NORMAL); PLATELET MORPHOLOGY NORMAL (NORMAL); SCAN/DIFF AUTO DIFF CONFIRMED
[2016-03-27] MEDS: SENNOSIDES 8.6 MG TAB PO SCH ×2 (08:14→20:08)
[2016-03-27] MEDS: SODIUM CHLORIDE 0.9% FLUSH 5 ML FLUSH IV FLUSH SCH ×2 (08:14→20:08)
[2016-03-27] MEDS: LACTULOSE SYRUP 20 GM/30 ML CUP PO SCH (08:14)
[2016-03-27] MEDS: DOCUSATE SODIUM 100 MG CAP PO SCH ×2 (08:15→20:08)
[2016-03-27] MEDS: PANTOPRAZOLE SODIUM 40 MG VIAL IV SCH (09:13)
[2016-03-27] MEDS: SODIUM CHLORIDE 0.9% FLUSH 5 ML FLUSH IVF SCH (09:14)
[2016-03-27 10:44] LABS: ALBUMIN SPE 2.28 GM/DL (3.50-5.00); ALPHA 1 GLOBULIN 0.38 GM/DL (0.11-0.29); ALPHA 2 GLOBULIN 0.96 GM/DL (0.22-1.00)
[2016-03-27 10:45] LABS: BETA GLOBULINS (SPE) 0.92 GM/DL (0.53-1.03)
[2016-03-27] MEDS: DEXTROSE 5% IV SCH ×2 (10:50)
[2016-03-27] MEDS: MICAFUNGIN IV SCH ×2 (10:50)
[2016-03-27] MEDS: WATER IV SCH ×2 (10:50)
--- NOTE | 2016-03-27 12:56 | HHI.CCPN ---
Subjective Remarks/Hospital Course > 48 hour history of epigastric pain, vomiting. GB US reveals cholecystitis with stones in neck. MRCP - pancreatitis, ducts not dilated. Received stent into a bile duct secondary to stricture due to pancreatic head edema. [facility] re -consulted today 03/12 due to patient's tachypnea and abdominal distention. 03/13 - Patient appears significantly more acutely ill since I last saw her . Answers questions in 1-2 word responses. Resting in bed with quite distant added. Diffuse in all 4 quadrants abdominal stated to be Pain 10 out of 10. Tube feeds on hold. Decreased urine output noted. 03/14: Tmax 100. Currently 98.9. Status post -4 L hemodialysis yesterday. Breathing appears intermittently tachypneic and labored however she is more alert today and able to verbally complete sentences today. No bowel movement yesterday. Tube feeds currently off. 03/15: Tmax 102. Currently 100.5. Status post -3.5 L hemodialysis today. More lethargic. TPN to be initiated today. 03/16: Afebrile overnight. Started on TPN with elevated blood sugars. Currently on insulin drip. 2 large bowel movements yesterday. She is making adequate urine output. Pain better controlled today. White cell count has decreased slowly. Clinically appears better. 03/17: Afebrile. Blood sugars are stabilized. White cell count is stabilized. Positive BM yesterday. Abdomen less distended but abdominal pressure still in the low 20s. Arousable and follows commands. 03/18: Tmax 100.1. 2 BMs yesterday. Currently resting in bed. Abdominal pressures 17-19 overnight. Arousable and will follow commands. 03/19/16: Tmax 100.2. Positive BM. -3 L hemodialysis yesterday. Patient agitated overnight. Currently received [place] and sedated. Complains of abdominal pain. Abdomen appears much less distended than previously. 03/20/16: Tmax 101.1. Currently 101. More lethargic this a.m. likely secondary to fevers. White cell count continues to trend downward. A.m. labs pending. Tolerating tube feed. Positive BM. 03/21/16: Tmax 101.1. Currently 101. White cell count has normalized. Tolerating tube feeding. Positive BM. Hemodialysis catheter removed yesterday. 03/22/16: Tmax 101.5. Currently 99. Currently out of bed to chair. White cell count is stabilized. Tolerating tube feeding as been increased to 40 cc an hour. No bowel movement 2 days 03/23/16: Tmax 101.2. Currently afebrile. Resting in bed. Tube feeds are stable at 40 cc an hour. Positive BM. More awake and alert today. 03/24: Afebrile. Tolerating tube feeds at 40 cc an hour. Positive BM. Will initiate oral diet. TPN is discontinued. 03/25: Afebrile. Tolerating tube feeding. Positive BM. Tolerating nectar thick liquid diet. Currently resting in chair in no acute distress. 03/26: Afebrile. One episode of dysrhythmia. No potassium is below 3.2. Replace with 80 mEq potassium chloride IV half by mouth. Recheck later this evening. Currently resting in bed in no acute distress. Intermittently tachypnea. Pain appears controlled Subjective 03/27: Afebrile. Potassium 3.5. Resting in bed in no acute distress. Intermittently tachypnea. Pain control. Positive BM. Objective Vital Signs Date Time Temp Pulse Resp B/P Pulse Ox O2 Delivery O2 Flow Rate FiO2 03/27/16 12:00 80 03/27/16 12:00 98.3 24 163/65 99 03/27/16 08:12 Nasal Cannula 3.00 Intake and Output 03/26/16 03/26/16 03/27/16 08:00 16:00 00:00 Intake Total 1101 ml 1171 ml 1056 ml Output Total 550 ml 950 ml 800 ml Balance 551 ml 221 ml 256 ml Result Diagram: 03/27/16 0445 03/27/16 0445 Imaging Last Impressions Chest X-Ray 03/26/16 06 Signed Impressions: Service Date/Time: Saturday, March 26, 2016 05:15 - CONCLUSION: Stable bilateral perihilar infiltrates and left lower lobe consolidation. Maxwell Choi MD Abdomen X-Ray 03/26/16 0600 Signed Impressions: Service Date/Time: Saturday, March 26, 2016 05:18 - CONCLUSION: Improving distended loops of bowel. The metallic tip feeding tube has changed position and is now projected in the stomach. Maxwell Choi MD Lower Extremity Ultrasound 03/20/16 0000 Signed Impressions: Service Date/Time: Sunday, March 20, 2016 14:32 - CONCLUSION: No DVT of either lower extremity. Darrian Leary MD Abdomen/Pelvis CT 03/15/16 0000 Signed Impressions: Service Date/Time: Tuesday, March 15, 2016 15:26 - CONCLUSION: 1. Compared to the prior exam, the previously noted gas bubbles in the wall of the cecum have resolved. 2. Otherwise, no other new or significant changes compared to the prior study. Wilver Bond MD Head CT 03/14/16 0000 Signed Impressions: Service Date/Time: Monday, March 14, 2016 16:13 - CONCLUSION: Normal examination. Jere Toro MD Renal Ultrasound 03/13/16 0000 Signed Impressions: Service Date/Time: Sunday, March 13, 2016 16:39 - CONCLUSION: Unremarkable renal ultrasound. Abisai Lundy MD GI Procedure 03/05/16 0000 Signed Impressions: Service Date/Time: Friday, March 04, 2016 23:02 - CONCLUSION: ERCP as above. Vidal Ye MD Gall Bladder Ultrasound 03/04/16 0000 Signed Impressions: Service Date/Time: Friday, March 04, 2016 19:36 - CONCLUSION: 1. Thick-walled gallbladder with some pericholecystic fluid and multiple gallstones in the region of the neck. The findings are suggestive of acute cholecystitis. Clinical correlation is recommended. 2. Fatty liver. 3. Minimal ascites within Polanco's pouch. 4. Poor visualization of the pancreas due to shadowing bowel gas. Odilon Butler MD Cholangiopancreatography MRI 03/04/16 0000 Signed Impressions: Service Date/Time: Friday, March 04, 2016 18:24 - CONCLUSION: 1. Extensive edema throughout the retroperitoneum and pancreas. No abscess or pseudocyst. 2. Tiny layering gallstones within the gallbladder. No discrete common bile duct stone. There is tapering of the common bile duct within the pancreatic head felt to be secondary to the edema within the pancreas. No discrete mass or choledocholithiasis. No intrahepatic or extrahepatic ductal dilatation. Maxwell Hsu Jr., MD Objective Remarks GENERAL: 66-year-old AA female, morbidly obese, critically ill appearing, currently resting in bed in no acute distress SKIN: Warm and dry. No rash HEAD: Atraumatic. Normocephalic. EYES: Pupils equal and round around 3 mm bilaterally and reactive. No scleral icterus. No injection or drainage. ENT: No nasal bleeding or discharge. Mucous membranes pink and moist. Keofed tube in right nares NECK: Trachea midline. No JVD. CARDIOVASCULAR: Regular rate and rhythm. S1, S2. No S4. Without murmur RESPIRATORY: Distant breath sounds. Symmetrical excursion. Essentially clear to auscultation GASTROINTESTINAL: Abdomen obese. Less tender to palpation in all quadrants. Hypoactive bowel sounds. MUSCULOSKELETAL: Extremities with trace bilateral lower extremity pedal edema/ anasarca-like improved since admission. No obvious deformities. NEUROLOGICAL: Awake and alert to person and place. No obvious cranial nerve deficits. Motor grossly within normal limits. Five out of 5 muscle strength in the arms and legs. Vascular Central Line Catheter: Yes Assessment to: Continue Date of Insertion: Mar 22, 2016 Line: PICC Side: Left Location: Antecubital A/P Problem List: (1) Severe sepsis with acute organ dysfunction ICD Code: A41.9 Status: Acute (2) Cholangitis ICD Code: K83.0 Status: Acute (3) Hypertensive urgency ICD Code: I16.0 Status: Acute Assessment and Plan Neuro/Psych: Pain management for acute pancreatitis Acetaminophen for fever [place] 5/325 one every 4 hours/ morphine 2 mg every 3 hours hours when necessary for pain management CV: Severe sepsis from cholangitis and pancreatitis Hypertension by history Dyslipidemia - Holding home medications lisinopril/HCTZ 20/25 in light of acute kidney injury. - Noted elevated HDL/LDL/total cholesterol - triglycerides within normal limits Consider statin when appropriate once LFTs normalize - As needed labetalol, hydralazine, Nitropaste for blood pressure control of present - Previously on metoprolol 50 mg twice a day with some SVT during this hospitalization. Continue 50 mg every 8 hours with Imdur 10 every 8 and hydralazine 25 every 8 - 2-D echo EF 55 - 60%. Trace ANNIE 39 mmHg Resp: Acute respiratory insufficiency likely secondary to volume overload - Nasal cannula to maintain saturations greater than equal to 92%. Currently on 2 L - Incentive spirometry while awake - Chest x-ray 03/14 after line placement reveals possible right lower lobe effusion/atelectasis. --Chest x-ray 03/26 with left lower lobe infiltrate GI: Status post ERCP/placement of stenting, bile duct secondary to stenosis Acute necrotizing Pancreatitis Possible pneumatosis intestinalis Transaminitis Hypo-albuminemia CT abdomen/pelvis 03/12 revealed multiple gallstones/worsening pancreatitis and possible pneumatosis intestinalis involving the cecum and the ascending colon Dr. Ceballos/general surgery following Discussed with Dr. Moulton yesterday. Agreed with hemodialysis and attempt to remove extra cellular fluid while maintaining intravascular volume. Difficult situation 14-24 intra-abdominal bladder pressures - Dr. Lucero/GI performed ERCP 03/04 with stent placement, distal common bile duct 8.5 [place] 7 cm secondary to stricture - Ultrasound revealed thickening in the gallbladder with pericholecystic fluid. Tiny gallstones noted. 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 turn out worker sent appropriate paperwork to review. I called transfer center. If unavailable will contact [facility] for another option. Discussed with surgery 03/18. Currently with watchful waiting. He will contact specialist pancreatic surgeons at [facility] and [facility] if appropriate. Surgery signed off as a 03/22. Reconsult if necessary Continue with rectal tube to LIWS TPN was discontinued Tube feeds with Nepro at 40 cc an hour per general surgery advanced per general surgery [place] thickened liquid diet per speech therapy : Azul if needed for accurate I's and O's in critically ill patient Endo: Hyperglycemia of critical illness Sliding-scale insulin/high with Accu-Cheks every 4 hours. Renal: LOI - resolved - Creatinine appears to be stabilizing - Avoid nephrotoxic drugs. Noted lisinopril/hctz held - Nephrology consultation following when necessary as needed -Negative urine eosinophils renal ultrasound without obstruction - Follow BMP in a.m. Heme/Onc: History of breast cancer status post right mastectomy Leukocytosis Normocytic anemia CBC stable around 8 Currently holding Letrozole 2.5 mg daily with elevated LFTs. Resume when clinically indicated ID: Possible necrotizing pancreatitis/pneumatosis intestinalis Day #14 micafungin/Merrem ID consult appreciated to see today Pertinent cultures 03/04 - urine culture - negative 03/04 - blood cultures 2 - negative 03/07 - blood cultures 2 - negative 03/13 - blood cultures 2 -no growth 03/15 - urine culture -no growth 1/2 - blood cultures 2 - no growth 1/2 - urine cultures - negative FEN: Hypercalcemia Hypopotassemia Hypernatremia Replace electrolytes as clinically indicated 40 mEq potassium chloride 1. Recheck Currently on Nepro at 40 cc an hour general surgery Currently on free water 250 cc every 4 hours Checking PTH, PTH RP, and vitamin D analogs and SPEP. 1 dose of calcitonin salmon today. MSK: Out of bed/PT evaluate and treat Access PICC line day #6 -Right IJ CVL day 10 placed 03/14 and removed 1/5 - Left IJ hemodialysis catheter placed 03/13 and removed 1/ Prophylaxis - GI - Protonix - DVT - SCD/heparin Critical Care: The total critical care time was 35 minutes. Time to perform other separately billable procedures was not included in the critical care time. Rosalio Bowie MD Mar 27, 2016 12:56
[2016-03-27] MEDS ORDERED: POTASSIUM CL 40 MEQ/30 ML LIQ UDC PO ONE (13:00)
[2016-03-27] MEDS: MAGNESIUM SULFATE 1 GM PREMIX 100 ML IV SCH ×2 (13:16→13:47)
[2016-03-27] MEDS: ACETAMINOPHEN/HYDROcodone 325 MG/5 MG TAB PO PRN (20:11)
[2016-03-28] VITALS (13 sets, daily range): BP systolic 120–187; BP diastolic 57–86; PULSE 71–92; RESP 23–27; TEMP 98.3–99; O2SAT 93–100
[2016-03-28] MEDS: FREE WATER G-TUBE SCH ×6 (01:20→20:00)
[2016-03-28] MEDS: INSULIN NovoLIN REGULAR SUPPLEMENTAL SCALE SQ SCH ×6 (01:20→20:00)
[2016-03-28] MEDS: MEROPENEM INJ 1,000 MG in SODIUM CHLORIDE 0.9% INJ 100 ML IV SCH ×3 (02:27→17:30)
[2016-03-28 02:49] LABS: C. DIFF EPI 027 PRESUMPTIVE NEGATIVE (NEGATIVE); C. DIFF TOXIN PCR NEGATIVE (NEGATIVE)
[2016-03-28] MEDS: CHLORHEXIDINE GLUCONATE 2 % 1 PACK (2 CLOTHS) TOP SCH (05:03)
[2016-03-28] MEDS: ACETAMINOPHEN/HYDROcodone 325 MG/5 MG TAB PO PRN ×2 (05:04→20:50)
[2016-03-28 05:25] LABS: AUTOMATED NEUTROPHIL # 4.6 TH/MM3 (1.8-7.7); BASOPHIL # 0.1 TH/MM3 (0-0.2); BASOPHIL % 0.7 % (0.0-2.0); EOSINOPHIL # 0.1 TH/MM3 (0-0.4); EOSINOPHIL % 1.9 % (0.0-4.0); HEMATOCRIT 26.4 % (35.0-46.0); HEMO FLAGS DIFF FINAL; LYMPH % 29.4 % (9.0-44.0); LYMPHOCYTE # 2.2 TH/MM3 (1.0-4.8); MEAN CELL VOLUME 89.8 FL (80.0-100.0); MEAN CORPUSCULAR HGB CONC 31.2 % (32.0-36.0); MONO % 7.3 % (0.0-8.0); NEUT % 60.7 % (16.0-70.0); PLATELET COUNT 212 TH/MM3 (150-450); RED BLOOD COUNT 2.94 MIL/MM3 (4.00-5.30); RED CELL DISTRIBUTION WIDTH 17.1 % (11.6-17.2); WHITE BLOOD COUNT 7.6 TH/MM3 (4.0-11.0)
[2016-03-28 05:33] LABS: ALKALINE PHOSPHATASE 196 U/L (45-117); ALT (GPT) 41 U/L (10-53); ANION GAP 3 MEQ/L (5-15); AST (GOT) 51 U/L (15-37); BICARBONATE 32.9 MEQ/L (21.0-32.0); BLOOD UREA NITROGEN 23 MG/DL (7-18); CHLORIDE 119 MEQ/L (98-107); GLOMERULAR FILTRATION RATE 126 ML/MIN (>89); MAGNESIUM 2.1 MG/DL (1.5-2.5); POTASSIUM 3.9 MEQ/L (3.5-5.1); SODIUM (NA) 155 MEQ/L (136-145); TOTAL BILIRUBIN ADULT 0.3 MG/DL (0.2-1.0)
[2016-03-28] MEDS: METOCLOPRAMIDE HCL 10 MG/2 ML VIAL IV PUSH SCH ×3 (06:09→20:23)
[2016-03-28] MEDS: hydrALAZINE HCL 10 MG TAB PO SCH ×3 (06:09→20:22)
[2016-03-28] MEDS: METOPROLOL TARTRATE 50 MG TAB PO SCH ×3 (06:10→20:22)
[2016-03-28] MEDS: ISOSORBIDE DINITRATE 10 MG TAB PO SCH ×3 (06:10→20:23)
[2016-03-28] MEDS: HEPARIN SODIUM - SQ 10,000 UNITS/ML VIAL SQ SCH ×3 (06:10→20:23)
--- NOTE | 2016-03-28 06:23 | RADRPT ---
EXAM DATE/TIME: 03/28/2016 05:19 [place] COMPARISON: CHEST SINGLE AP, March 26, 2016, 5:15. INDICATIONS : Shortness of breath. MEDICAL HISTORY : Chronic obstructive pulmonary disease. Carcinoma, breast. Hypertension. SURGICAL HISTORY : Mastectomy, right. ENCOUNTER: Subsequent ACUITY: 2 weeks PAIN SCORE: Non-responsive. LOCATION: Bilateral chest FINDINGS: A single view of the chest demonstrates cardiomegaly with bilateral perihilar opacities and left lowe r lobe density. Feeding tube appears unchanged in position. Left-sided PICC line also unchanged. The cardiomediastinal contours are unremarkable. Osseous structures are intact. CONCLUSION: Cardiomegaly with bilateral perihilar opacities and left lower lobe density. Wilian Rojas MD on March 28, 2016 at 6:20 Board Certified Radiologist. This report was verified electronically.
[2016-03-28] MEDS: SODIUM CHLORIDE 0.9% FLUSH 5 ML FLUSH IV FLUSH SCH ×2 (07:57→20:23)
[2016-03-28] MEDS: PANTOPRAZOLE SODIUM 40 MG VIAL IV SCH (07:58)
[2016-03-28] MEDS: SODIUM CHLORIDE 0.9% FLUSH 5 ML FLUSH IVF SCH (09:00)
[2016-03-28] MEDS: DOCUSATE SODIUM 100 MG CAP PO SCH ×2 (09:00→20:22)
[2016-03-28] MEDS: LACTULOSE SYRUP 20 GM/30 ML CUP PO SCH (09:00)
[2016-03-28] MEDS: SENNOSIDES 8.6 MG TAB PO SCH ×2 (09:00→20:22)
[2016-03-28] MEDS: DEXTROSE 5% IV SCH ×2 (11:05)
[2016-03-28] MEDS: MICAFUNGIN IV SCH ×2 (11:05)
[2016-03-28] MEDS: WATER IV SCH ×2 (11:05)
[2016-03-28] MEDS: RESP: ALBUTEROL 2.5 MG/IPRATROPIUM 0.5 MG NEB (PRN) INH ×2 (13:59→19:30)
--- NOTE | 2016-03-28 16:36 | HHI.GIFU ---
Subjective Remarks Dobhoff clamped. Tolerating puree diet. No distress. (Nakita Crowe) Objective Vitals I&O Vital Signs Date Time Temp Pulse Resp B/P Pulse Ox O2 Delivery O2 Flow Rate FiO2 03/28/16 14:48 94 Nasal Cannula 3.00 03/28/16 12:39 82 03/28/16 12:00 98.4 80 23 136/65 100 03/28/16 08:00 98.8 77 24 122/57 98 03/28/16 07:55 98 Nasal Cannula 3.00 03/28/16 06:00 71 03/28/16 04:00 99.0 82 23 143/67 98 03/28/16 04:00 82 03/28/16 02:00 83 03/28/16 00:00 78 03/28/16 00:00 98.3 78 27 142/63 96 03/27/16 22:43 96 Nasal Cannula 3.00 03/27/16 22:00 77 03/27/16 20:00 99.3 78 29 155/79 96 03/27/16 20:00 84 03/27/16 19:00 95 Nasal Cannula 3.00 03/27/16 18:00 77 I/O 03/27/16 03/27/16 03/27/16 03/28/16 03/28/16 03/28/16 07:00 15:00 23:00 07:00 15:00 23:00 Intake Total 799 ml 1431 ml 690 ml 931 ml 780 ml Output Total 650 ml 800 ml 525 ml 350 ml 800 ml Balance 149 ml 631 ml 165 ml 581 ml -20 ml Intake Oral 320 ml IV Total 179 ml 495 ml 267 ml 165 ml 260 ml Tube Feeding 120 ml 376 ml 123 ml 266 ml Tube Irrigant 60 ml 50 ml Other 500 ml 500 ml 250 ml 500 ml 200 ml Output Urine Total 650 ml 800 ml 525 ml 350 ml 800 ml # Bowel Movements 1 2 0 1 Laboratory Laboratory Tests Test 03/28/16 03/28/16 03/28/16 00:45 04:35 04:38 Stool C. difficile Toxin (PCR) NEGATIVE Stl C. difficile Toxin PRESUMPTIVE Epiderm 027 NEGATIVE White Blood Count 7.6 Red Blood Count 2.94 Hemoglobin 8.2 Hematocrit 26.4 Mean Corpuscular Volume 89.8 Mean Corpuscular Hemoglobin 28.0 Mean Corpuscular Hemoglobin 31.2 Concent Red Cell Distribution Width 17.1 Platelet Count 212 Mean Platelet Volume 10.3 Neutrophils (%) (Auto) 60.7 Lymphocytes (%) (Auto) 29.4 Monocytes (%) (Auto) 7.3 Eosinophils (%) (Auto) 1.9 Basophils (%) (Auto) 0.7 Neutrophils # (Auto) 4.6 Lymphocytes # (Auto) 2.2 Monocytes # (Auto) 0.6 Eosinophils # (Auto) 0.1 Basophils # (Auto) 0.1 CBC Comment DIFF FINAL Differential Comment Sodium Level 155 Potassium Level 3.9 Chloride Level 119 Carbon Dioxide Level 32.9 Anion Gap 3 Blood Urea Nitrogen 23 Creatinine 0.58 Estimat Glomerular Filtration 126 Rate Random Glucose 170 Calcium Level 10.3 Phosphorus Level 2.8 Magnesium Level 2.1 Total Bilirubin 0.3 Aspartate Amino Transf 51 (AST/SGOT) Alanine Aminotransferase 41 (ALT/SGPT) Alkaline Phosphatase 196 Total Protein 7.1 Albumin 1.9 Imaging Last Impressions Chest X-Ray 03/28/16 0600 Signed Impressions: Service Date/Time: Monday, March 28, 2016 05:19 - CONCLUSION: Cardiomegaly with bilateral perihilar opacities and left lower lobe density. Wilian Rojas MD Abdomen X-Ray 03/26/16 0600 Signed Impressions: Service Date/Time: Saturday, March 26, 2016 05:18 - CONCLUSION: Improving distended loops of bowel. The metallic tip feeding tube has changed position and is now projected in the stomach. Maxwell Choi MD Lower Extremity Ultrasound 03/20/16 0000 Signed Impressions: Service Date/Time: Sunday, March 20, 2016 14:32 - CONCLUSION: No DVT of either lower extremity. Darrian Leary MD Abdomen/Pelvis CT 03/15/16 0000 Signed Impressions: Service Date/Time: Tuesday, March 15, 2016 15:26 - CONCLUSION: 1. Compared to the prior exam, the previously noted gas bubbles in the wall of the cecum have resolved. 2. Otherwise, no other new or significant changes compared to the prior study. Wilver oBnd MD Head CT 03/14/16 0000 Signed Impressions: Service Date/Time: Monday, March 14, 2016 16:13 - CONCLUSION: Normal examination. Jere Toro MD Renal Ultrasound 03/13/16 0000 Signed Impressions: Service Date/Time: Sunday, March 13, 2016 16:39 - CONCLUSION: Unremarkable renal ultrasound. Abisai Lundy MD GI Procedure 03/05/16 0000 Signed Impressions: Service Date/Time: Friday, March 04, 2016 23:02 - CONCLUSION: ERCP as above. Vidal Ye MD Gall Bladder Ultrasound 03/04/16 0000 Signed Impressions: Service Date/Time: Friday, March 04, 2016 19:36 - CONCLUSION: 1. Thick-walled gallbladder with some pericholecystic fluid and multiple gallstones in the region of the neck. The findings are suggestive of acute cholecystitis. Clinical correlation is recommended. 2. Fatty liver. 3. Minimal ascites within Polanco's pouch. 4. Poor visualization of the pancreas due to shadowing bowel gas. Odilon Butler MD Cholangiopancreatography MRI 03/04/16 0000 Signed Impressions: Service Date/Time: Friday, March 04, 2016 18:24 - CONCLUSION: 1. Extensive edema throughout the retroperitoneum and pancreas. No abscess or pseudocyst. 2. Tiny layering gallstones within the gallbladder. No discrete common bile duct stone. There is tapering of the common bile duct within the pancreatic head felt to be secondary to the edema within the pancreas. No discrete mass or choledocholithiasis. No intrahepatic or extrahepatic ductal dilatation. Maxwell Hsu Jr., MD Physical Exam NECK: Neck is supple, no JVD, no lymphadenopathy. CHEST: Resp. shallow, mildly tachypneic. CARDIAC: RRR ABDOMEN: Soft, distended, diffuse tenderness, hypoactive bowel sounds. EXTREMITIES: Generalized edema. SKIN: Lethargic, but slowly improving. (Nakita Crowe [facility]) Assessment and Plan Plan ASSESSMENT: - Severe acute gallstone pancreatitis. S/P ERCP (03/04/16)-----> stricture in the distal common bile duct, normal intrahepatic ducts, normal pancreatic ducts , patent cystic duct. S/P stent placement. [place], but clamped. Triglycerides 117. IgG [address] scan 03/15 with diffuse inflammatory changes surrounding the entire pancreas characteristic of pancreatitis. No new or significant changes are demonstrated compared to the prior study. Improving. WBC improving. TPN off. Tolerating puree diet. - Severe diffuse ileus. RESOLVED. Abdomen/Pelvis CT (03/15/16)-----> 1. Compared to the prior exam, the previously noted gas bubbles in the wall of the cecum have resolved. 2. Otherwise, no other new or significant changes compared to the prior study. S/P Relistor (03/16), colace, miralax, lactulose, senokot, reglan with good results. KUB (03/20/16)------> feeding tube in tip within the duodenum, no dilated loops of bowel. Abdomen is distended, but soft, slowly improving. Currently on Reglan, Senokot, Colace. + BM. Tolerating diet. - Biliary obstruction/cholangitis secondary to pancreatic head edema. S/P ERCP (03/04/16)-----> stricture in the distal common bile duct, normal intrahepatic ducts, normal pancreatic ducts, patent cystic duct. S/P stent placement. LFTs are stable. - Acute cholecystitis. S/P GS evaluation. - Acute sepsis, Leukocytosis. Abx per ID. Improving. - Acute renal failure. Resolved. Off HD. - Resp. Insuff. Resp. shallow/tachypneic. Diminished breath sounds. - Anemia. H/H 8.2/26.4. Recommendations - Puree diet with nectar thickened liquids - Cont. Senokot - Cont. Colace - Cont. Lactulose - Abx per ID - S/P Relistor (03/16/16) - CCM following - Supportive care - Further recommendations to follow - Patient seen and examined by Dr. Kraft and myself and this note is written on his behalf. (Nakita Crowe) Physician Comments Patient seen and examined Agree with above Continue with current supportive care Monitor labs (Rob Kraft MD) Nakita Crowe Mar 28, 2016 16:36 Rob Kraft MD Mar 28, 2016 21:39
--- NOTE | 2016-03-28 20:41 | HHI.PR ---
Subjective Remarks NO NEW events overnight Objective Vitals lethargic. but responsive ate breakfast with assist heart reg lung diminished josé miguel abd s/nt/bs ext anasarca. worse hands picc. esparza Vital Signs Date Time Temp Pulse Resp B/P Pulse Ox O2 Delivery O2 Flow Rate FiO2 03/28/16 19:31 99 Nasal Cannula 4.00 03/28/16 17:00 76 03/28/16 16:00 98.7 73 26 120/59 100 03/28/16 14:48 94 Nasal Cannula 3.00 03/28/16 12:39 82 03/28/16 12:00 98.4 80 23 136/65 100 03/28/16 08:00 98.8 77 24 122/57 98 03/28/16 07:55 98 Nasal Cannula 3.00 03/28/16 06:00 71 03/28/16 04:00 99.0 82 23 143/67 98 03/28/16 04:00 82 03/28/16 02:00 83 03/28/16 00:00 78 03/28/16 00:00 98.3 78 27 142/63 96 03/27/16 22:43 96 Nasal Cannula 3.00 03/27/16 22:00 77 03/27/16 03/27/16 03/28/16 15:00 23:00 07:00 Intake Total 1431 ml 690 ml 931 ml Output Total 800 ml 525 ml 350 ml Balance 631 ml 165 ml 581 ml IV Total 495 ml 267 ml 165 ml Tube Feeding 376 ml 123 ml 266 ml Tube Irrigant 60 ml 50 ml Other 500 ml 250 ml 500 ml Output Urine Total 800 ml 525 ml 350 ml # Bowel Movements 2 0 1 Result Diagram: 03/28/16 0435 03/28/16 0438 Imaging Last Impressions Chest X-Ray 03/09/16 0000 Signed Impressions: Service Date/Time: February 13:11 - CONCLUSION: Left lower lobe atelectasis versus infiltrate is unchanged. Maxwell Hsu Jr., MD Abdomen X-Ray 03/09/16 0000 Signed Impressions: Service Date/Time: February 11:11 - CONCLUSION: 1. The tip of the weighted feeding tube is located in the descending portion of the duodenum. Scar Resnedez MD Abdomen/Pelvis CT 03/08/16 0000 Signed Impressions: Service Date/Time: Tuesday, March 08, 2016 15:28 - CONCLUSION: Severe changes of pancreatitis, potentially with areas of hemorrhagic conversion. Darrian Engel MD GI Procedure 03/05/16 0000 Signed Impressions: Service Date/Time: Friday, March 04, 2016 23:02 - CONCLUSION: ERCP as above. Vidal Ye MD Gall Bladder Ultrasound 03/04/16 0000 Signed Impressions: Service Date/Time: Friday, March 04, 2016 19:36 - CONCLUSION: 1. Thick-walled gallbladder with some pericholecystic fluid and multiple gallstones in the region of the neck. The findings are suggestive of acute cholecystitis. Clinical correlation is recommended. 2. Fatty liver. 3. Minimal ascites within Polanco's pouch. 4. Poor visualization of the pancreas due to shadowing bowel gas. Odilon Butler MD Cholangiopancreatography MRI 03/04/16 0000 Signed Impressions: Service Date/Time: Friday, March 04, 2016 18:24 - CONCLUSION: 1. Extensive edema throughout the retroperitoneum and pancreas. No abscess or pseudocyst. 2. Tiny layering gallstones within the gallbladder. No discrete common bile duct stone. There is tapering of the common bile duct within the pancreatic head felt to be secondary to the edema within the pancreas. No discrete mass or choledocholithiasis. No intrahepatic or extrahepatic ductal dilatation. Maxwell Hsu Jr., MD Date of Insertion: Mar 22, 2016 Line: PICC Side: Left Location: Antecubital A/P Problem List: (1) Severe sepsis with acute organ dysfunction Status: Acute Plan: - Pt admitted with sudden onset of abd pain, nausea/vomiting on 03/04/16 - LFTs were elevated at TBili 4.0, AST 472, ALT 378, AlkPhos 154 with Lipase of 7635 - Also noted to have an elevated Lactic acid of 4.5 and was admitted to ICU - MRCP (03/04) --> Extensive edema throughout the retroperitoneum and pancreas. No abscess or pseudocyst. Tiny layering gallstones within the gallbladder. No discrete common bile duct stone. There is tapering of the common bile duct within the pancreatic head felt to be secondary to the edema within the pancreas. No discrete mass or choledocholithiasis. No intrahepatic or extrahepatic ductal dilatation. - GB US (03/04) --> Thick-walled gallbladder with some pericholecystic fluid and multiple gallstones in the region of the neck. The findings are suggestive of acute cholecystitis. Fatty liver. Minimal ascites within Polanco's pouch. - Pt was seen by GI and underwent ERCP with stent placement in the CBD on - repeat CT Abd/pelvis (03/08/16) severe pancreatitis, potentially with areas of hemorrhagic conversion. -CT abdomen and pelvis 03/15 appears to be less pneumatosis intestinalis in the ascending colon/noted and likely colonic ileus admitted with cholangitis. 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 cont free water flush. recheck na level PT daily dvt prophylaxis cont abx per ID d/c laxatives and reglan cont ppi transfer to med/surg soon will need snf (2) Pancreatitis, acute Status: Acute Plan: - See above. (3) Cholangitis Status: Acute Plan: - See above (4) Ventricular tachycardia (paroxysmal) Status: Acute Plan: - Cardiology consulted on 03/08 due to pt having a two runs of ventricular tachycardia on 03/07 which was felt to be secondary to her acute illness. - Pt was started on Metoprolol 50mg Q12H - No further issues with dysrhythmia noted - 2D echo (03/08) - Estimated EF 55-60% - Mild tricuspid regurgitation - PA peak pressure 39mmHg (5) HTN (hypertension) Status: Chronic Plan: - Cont. Metoprolol 50mg BID - Cont. Lisinopril 10mg BID (6) Renal insufficiency Status: Acute Plan: -see above Problem Qualifiers (1) Pancreatitis, acute: Saleem Rolon MD Mar 28, 2016 20:41 Problem Qualifiers (1) Pancreatitis, acute: Saleem Rolon MD Mar 28, 2016 20:41
[2016-03-29] VITALS (15 sets, daily range): BP systolic 106–154; BP diastolic 52–72; PULSE 72–85; RESP 16–25; TEMP 98–99.4; O2SAT 96–100
[2016-03-29] MEDS: MEROPENEM INJ 1,000 MG in SODIUM CHLORIDE 0.9% INJ 100 ML IV SCH ×3 (02:16→17:49)
[2016-03-29] MEDS: FREE WATER G-TUBE SCH ×7 (04:00→23:52)
[2016-03-29] MEDS: CHLORHEXIDINE GLUCONATE 2 % 1 PACK (2 CLOTHS) TOP SCH (04:00)
[2016-03-29] MEDS: INSULIN NovoLIN REGULAR SUPPLEMENTAL SCALE SQ SCH ×7 (04:00→23:52)
[2016-03-29] MEDS: HEPARIN SODIUM - SQ 10,000 UNITS/ML VIAL SQ SCH ×3 (05:23→20:36)
[2016-03-29] MEDS: METOPROLOL TARTRATE 50 MG TAB PO SCH ×3 (05:23→20:35)
[2016-03-29] MEDS: hydrALAZINE HCL 10 MG TAB PO SCH ×3 (05:24→20:35)
[2016-03-29] MEDS: ISOSORBIDE DINITRATE 10 MG TAB PO SCH ×3 (05:24→20:35)
[2016-03-29] MEDS: DOCUSATE SODIUM 100 MG CAP PO SCH ×2 (09:00→19:49)
[2016-03-29] MEDS ORDERED: FUROSEMIDE 20 MG TAB PO ONE (09:30)
--- NOTE | 2016-03-29 09:41 | HHI.PR ---
Subjective Remarks pt seems encephalopathic. Objective Vitals encephalopathic eyes open follows some commands nonverbal heart reg lung cta abd s/nt heent..ngt ext anasarca esparza. picc Vital Signs Date Time Temp Pulse Resp B/P Pulse Ox O2 Delivery O2 Flow Rate FiO2 03/29/16 06:00 78 03/29/16 04:00 78 03/29/16 04:00 98.8 78 21 115/56 100 03/29/16 02:00 76 03/29/16 00:00 98.0 75 16 106/52 97 03/29/16 00:00 75 03/28/16 22:00 76 03/28/16 20:00 99.0 92 23 187/86 93 03/28/16 20:00 92 03/28/16 19:31 99 Nasal Cannula 4.00 03/28/16 19:00 93 Nasal Cannula 5.00 03/28/16 17:00 76 03/28/16 16:00 98.7 73 26 120/59 100 03/28/16 14:48 94 Nasal Cannula 3.00 03/28/16 12:39 82 03/28/16 12:00 98.4 80 23 136/65 100 03/28/16 03/28/16 03/29/16 15:00 23:00 07:00 Intake Total 780 ml 705 ml 1210 ml Output Total 800 ml 500 ml 375 ml Balance -20 ml 205 ml 835 ml Intake Oral 320 ml 200 ml 200 ml IV Total 260 ml 155 ml 175 ml Tube Feeding 40 ml 315 ml Tube Irrigant 60 ml 20 ml Other 200 ml 250 ml 500 ml Output Urine Total 800 ml 500 ml 375 ml # Bowel Movements 1 1 Result Diagram: 03/28/16 0435 03/28/16 0438 Imaging Last Impressions Chest X-Ray 03/09/16 0000 Signed Impressions: Service Date/Time: February 13:11 - CONCLUSION: Left lower lobe atelectasis versus infiltrate is unchanged. Maxwell Hsu Jr., MD Abdomen X-Ray 03/09/16 0000 Signed Impressions: Service Date/Time: February 11:11 - CONCLUSION: 1. The tip of the weighted feeding tube is located in the descending portion of the duodenum. Scar Resendez MD Abdomen/Pelvis CT 03/08/16 0000 Signed Impressions: Service Date/Time: Tuesday, March 08, 2016 15:28 - CONCLUSION: Severe changes of pancreatitis, potentially with areas of hemorrhagic conversion. Darrian Engel MD GI Procedure 03/05/16 0000 Signed Impressions: Service Date/Time: Friday, March 04, 2016 23:02 - CONCLUSION: ERCP as above. Vidal Ye MD Gall Bladder Ultrasound 03/04/16 0000 Signed Impressions: Service Date/Time: Friday, March 04, 2016 19:36 - CONCLUSION: 1. Thick-walled gallbladder with some pericholecystic fluid and multiple gallstones in the region of the neck. The findings are suggestive of acute cholecystitis. Clinical correlation is recommended. 2. Fatty liver. 3. Minimal ascites within Polanco's pouch. 4. Poor visualization of the pancreas due to shadowing bowel gas. Odilon Butler MD Cholangiopancreatography MRI 03/04/16 0000 Signed Impressions: Service Date/Time: Friday, March 04, 2016 18:24 - CONCLUSION: 1. Extensive edema throughout the retroperitoneum and pancreas. No abscess or pseudocyst. 2. Tiny layering gallstones within the gallbladder. No discrete common bile duct stone. There is tapering of the common bile duct within the pancreatic head felt to be secondary to the edema within the pancreas. No discrete mass or choledocholithiasis. No intrahepatic or extrahepatic ductal dilatation. Maxwell Hsu Jr., MD Date of Insertion: Mar 22, 2016 Line: PICC Side: Left Location: Antecubital A/P Problem List: (1) Severe sepsis with acute organ dysfunction Status: Acute Plan: - Pt admitted with sudden onset of abd pain, nausea/vomiting on 03/04/16 - LFTs were elevated at TBili 4.0, AST 472, ALT 378, AlkPhos 154 with Lipase of 7635 - Also noted to have an elevated Lactic acid of 4.5 and was admitted to ICU - MRCP (03/04) --> Extensive edema throughout the retroperitoneum and pancreas. No abscess or pseudocyst. Tiny layering gallstones within the gallbladder. No discrete common bile duct stone. There is tapering of the common bile duct within the pancreatic head felt to be secondary to the edema within the pancreas. No discrete mass or choledocholithiasis. No intrahepatic or extrahepatic ductal dilatation. - GB US (03/04) --> Thick-walled gallbladder with some pericholecystic fluid and multiple gallstones in the region of the neck. The findings are suggestive of acute cholecystitis. Fatty liver. Minimal ascites within Polanco's pouch. - Pt was seen by GI and underwent ERCP with stent placement in the CBD on - repeat CT Abd/pelvis (03/08/16) severe pancreatitis, potentially with areas of hemorrhagic conversion. -CT abdomen and pelvis 03/15 appears to be less pneumatosis intestinalis in the ascending colon/noted and likely colonic ileus admitted with cholangitis. 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 seems to correct to about 11.9. w/up in progress. encephalopathy. could be metabolic related to na/ca anasarca. 20 kg weight gain since admission cont tube feeding and po. cont free water flush. add gentl d5w and lasix. calcitonin trial. recheck na and ca level PT daily dvt prophylaxis cont abx per ID d/c laxatives and reglan cont ppi transfer to med/surg soon will need snf discussed with nursing and charge nurse. mental status is same for quite some time. no acute change today. (2) Pancreatitis, acute Status: Acute Plan: - See above. (3) Cholangitis Status: Acute Plan: - See above (4) Ventricular tachycardia (paroxysmal) Status: Acute Plan: - Cardiology consulted on 03/08 due to pt having a two runs of ventricular tachycardia on 03/07 which was felt to be secondary to her acute illness. - Pt was started on Metoprolol 50mg Q12H - No further issues with dysrhythmia noted - 2D echo (03/08) - Estimated EF 55-60% - Mild tricuspid regurgitation - PA peak pressure 39mmHg (5) HTN (hypertension) Status: Chronic Plan: - Cont. Metoprolol 50mg BID - Cont. Lisinopril 10mg BID (6) Renal insufficiency Status: Acute Plan: -see above Problem Qualifiers (1) Pancreatitis, acute: Saleem Rolon MD Mar 29, 2016 09:41
[2016-03-29] MEDS: SODIUM CHLORIDE 0.9% FLUSH 5 ML FLUSH IV FLUSH SCH ×2 (09:49→20:35)
[2016-03-29] MEDS: PANTOPRAZOLE SODIUM 40 MG VIAL IV SCH (09:49)
[2016-03-29] MEDS: SODIUM CHLORIDE 0.9% FLUSH 5 ML FLUSH IVF SCH (09:50)
[2016-03-29] MEDS ORDERED: FUROSEMIDE 20 MG/2 ML VIAL IV PUSH ONE (11:00)
[2016-03-29] MEDS: DEXTROSE 5% IN WATE 1000ML INJ 1,000 ML IV SCH (11:09)
[2016-03-29] MEDS ORDERED: CALCITONIN SALMON INJ 400 UNITS/2 ML VIAL SQ ONE (11:30)
[2016-03-29] MEDS: MICAFUNGIN IV SCH ×2 (11:54)
[2016-03-29] MEDS: WATER IV SCH ×2 (11:54)
[2016-03-29] MEDS: DEXTROSE 5% IV SCH ×2 (11:54)
[2016-03-29 14:57] LABS: PTH RELATED PEPTIDE 0.6 pmol/L (<2.0)
[2016-03-29] MEDS ORDERED: FUROSEMIDE 20 MG/2 ML VIAL IV PUSH SCH (18:00)
[2016-03-29] MEDS ORDERED: FUROSEMIDE 20 MG TAB PO SCH (18:00)
--- NOTE | 2016-03-29 18:16 | HHI.GIFU ---
Subjective Remarks Pt more lethargic today. Did not eat anything by mouth today. TF being restarted. Large bowel movement. (Nakita Crowe) Objective Vitals I&O Vital Signs Date Time Temp Pulse Resp B/P Pulse Ox O2 Delivery O2 Flow Rate FiO2 03/29/16 11:42 100 Nasal Cannula 3.00 03/29/16 07:15 72 03/29/16 07:00 100 Nasal Cannula 3.00 03/29/16 06:00 78 03/29/16 04:00 78 03/29/16 04:00 98.8 78 21 115/56 100 03/29/16 02:00 76 03/29/16 00:00 98.0 75 16 106/52 97 03/29/16 00:00 75 03/28/16 22:00 76 03/28/16 20:00 99.0 92 23 187/86 93 03/28/16 20:00 92 03/28/16 19:31 99 Nasal Cannula 4.00 03/28/16 19:00 93 Nasal Cannula 5.00 I/O 03/28/16 03/28/16 03/28/16 03/29/16 03/29/16 03/29/16 07:00 15:00 23:00 07:00 15:00 23:00 Intake Total 931 ml 780 ml 705 ml 1210 ml 922 ml Output Total 350 ml 800 ml 500 ml 375 ml 1700 ml Balance 581 ml -20 ml 205 ml 835 ml -778 ml Intake Oral 320 ml 200 ml 200 ml 0 ml IV Total 165 ml 260 ml 155 ml 175 ml 223 ml Tube Feeding 266 ml 40 ml 315 ml 99 ml Tube Irrigant 60 ml 20 ml 100 ml Other 500 ml 200 ml 250 ml 500 ml 500 ml Output Urine Total 350 ml 800 ml 500 ml 375 ml 1700 ml # Bowel Movements 1 1 1 4 Imaging Last Impressions Chest X-Ray 03/28/16 0600 Signed Impressions: Service Date/Time: Monday, March 28, 2016 05:19 - CONCLUSION: Cardiomegaly with bilateral perihilar opacities and left lower lobe density. Wilian Rojas MD Abdomen X-Ray 03/26/16 0600 Signed Impressions: Service Date/Time: Saturday, March 26, 2016 05:18 - CONCLUSION: Improving distended loops of bowel. The metallic tip feeding tube has changed position and is now projected in the stomach. Maxwell Choi MD Lower Extremity Ultrasound 03/20/16 0000 Signed Impressions: Service Date/Time: Sunday, March 20, 2016 14:32 - CONCLUSION: No DVT of either lower extremity. Darrian Leary MD Abdomen/Pelvis CT 03/15/16 0000 Signed Impressions: Service Date/Time: Tuesday, March 15, 2016 15:26 - CONCLUSION: 1. Compared to the prior exam, the previously noted gas bubbles in the wall of the cecum have resolved. 2. Otherwise, no other new or significant changes compared to the prior study. Wilver Bond MD Head CT 03/14/16 0000 Signed Impressions: Service Date/Time: Monday, March 14, 2016 16:13 - CONCLUSION: Normal examination. Jere Toro MD Renal Ultrasound 03/13/16 0000 Signed Impressions: Service Date/Time: Sunday, March 13, 2016 16:39 - CONCLUSION: Unremarkable renal ultrasound. K. Stephen Lundy MD GI Procedure 03/05/16 0000 Signed Impressions: Service Date/Time: Friday, March 04, 2016 23:02 - CONCLUSION: ERCP as above. Vidal Ye MD Gall Bladder Ultrasound 03/04/16 0000 Signed Impressions: Service Date/Time: Friday, March 04, 2016 19:36 - CONCLUSION: 1. Thick-walled gallbladder with some pericholecystic fluid and multiple gallstones in the region of the neck. The findings are suggestive of acute cholecystitis. Clinical correlation is recommended. 2. Fatty liver. 3. Minimal ascites within Polanco's pouch. 4. Poor visualization of the pancreas due to shadowing bowel gas. Odilon Butler MD Cholangiopancreatography MRI 03/04/16 0000 Signed Impressions: Service Date/Time: Friday, March 04, 2016 18:24 - CONCLUSION: 1. Extensive edema throughout the retroperitoneum and pancreas. No abscess or pseudocyst. 2. Tiny layering gallstones within the gallbladder. No discrete common bile duct stone. There is tapering of the common bile duct within the pancreatic head felt to be secondary to the edema within the pancreas. No discrete mass or choledocholithiasis. No intrahepatic or extrahepatic ductal dilatation. Maxwell Hsu Jr., MD Physical Exam NECK: Neck is supple, no JVD, no lymphadenopathy. CHEST: Resp. shallow, mildly tachypneic. CARDIAC: RRR ABDOMEN: Soft, distended, diffuse tenderness, hypoactive bowel sounds. EXTREMITIES: Generalized edema. SKIN: Lethargic, more today than yesterday (Nakita Crowe) Assessment and Plan Plan ASSESSMENT: - Severe acute gallstone pancreatitis. S/P ERCP (03/04/16)-----> stricture in the distal common bile duct, normal intrahepatic ducts, normal pancreatic ducts , patent cystic duct. S/P stent placement. Dobhoff, but clamped. Triglycerides 117. IgG [address] scan 03/15 with diffuse inflammatory changes surrounding the entire pancreas characteristic of pancreatitis. No new or significant changes are demonstrated compared to the prior study. Improving. WBC improving. TPN off. Tolerating puree diet yesterday, but did not take po today. TF being restarted. - Severe diffuse ileus. RESOLVED. Currently on Reglan, Senokot, Colace. + BM. Tolerating diet. - Biliary obstruction/cholangitis secondary to pancreatic head edema. S/P ERCP (03/04/16)-----> stricture in the distal common bile duct, normal intrahepatic ducts, normal pancreatic ducts, patent cystic duct. S/P stent placement. LFTs are stable. - Acute cholecystitis. S/P GS evaluation. - Acute sepsis, Leukocytosis. Abx per ID. Improving. - Acute renal failure. Resolved. Off HD. - Resp. Insuff. Resp. shallow/tachypneic. Diminished breath sounds. - Anemia. H/H 8.2/26.4. Recommendations - Puree diet with nectar thickened liquids, TF at night - Cont. Senokot - Cont. Colace - Cont. Lactulose - Abx per ID - S/P Relistor (03/16/16) - CCM following - Supportive care - Further recommendations to follow - Patient seen and examined by Dr. Kraft and myself and this note is written on his behalf. (Nakita Crowe) Physician Comments Patient seen and examined Agree with above Continue with current supportive care Monitor labs (Rob Kraft MD) Nakita Crowe Mar 29, 2016 18:16 Rob Kraft MD Mar 29, 2016 20:24
[2016-03-30] VITALS (15 sets, daily range): BP systolic 128–169; BP diastolic 69–86; PULSE 75–107; RESP 18–28; TEMP 98.7–100.6; O2SAT 94–100
[2016-03-30] MEDS: MEROPENEM INJ 1,000 MG in SODIUM CHLORIDE 0.9% INJ 100 ML IV SCH ×3 (02:00→17:48)
[2016-03-30] MEDS: hydrALAZINE HCL 20 MG/ML VIAL IV PUSH PRN (03:08)
[2016-03-30] MEDS: ACETAMINOPHEN/HYDROcodone 325 MG/5 MG TAB PO PRN ×2 (03:29→20:13)
[2016-03-30] MEDS: LABETALOL HCL 100 MG/20 ML VIAL IV PUSH PRN (03:29)
[2016-03-30] MEDS: FREE WATER G-TUBE SCH ×5 (04:00→20:00)
[2016-03-30] MEDS: CHLORHEXIDINE GLUCONATE 2 % 1 PACK (2 CLOTHS) TOP SCH (04:00)
[2016-03-30] MEDS: INSULIN NovoLIN REGULAR SUPPLEMENTAL SCALE SQ SCH ×5 (04:00→20:00)
[2016-03-30] MEDS: ISOSORBIDE DINITRATE 10 MG TAB PO SCH ×3 (06:14→20:13)
[2016-03-30] MEDS: METOPROLOL TARTRATE 50 MG TAB PO SCH ×3 (06:14→20:14)
[2016-03-30] MEDS: hydrALAZINE HCL 10 MG TAB PO SCH ×3 (06:14→20:14)
[2016-03-30] MEDS: HEPARIN SODIUM - SQ 10,000 UNITS/ML VIAL SQ SCH ×3 (06:14→20:14)
[2016-03-30 06:34] LABS: POTASSIUM 2.9 MEQ/L (3.5-5.1)
[2016-03-30] MEDS ORDERED: POTASSIUM CHLOR 20 MEQ PREMIX 100 ML IV ONE (07:30)
[2016-03-30] MEDS ORDERED: POTASSIUM CHLOR 40 MEQ PREMIX 100 ML IV ONE (08:00)
[2016-03-30] MEDS ORDERED: POTASSIUM CHLORIDE 20 MEQ CONTROLLED RELEASE TAB PO ONE (08:00)
[2016-03-30] MEDS: SODIUM CHLORIDE 0.9% FLUSH 5 ML FLUSH IV FLUSH SCH ×2 (09:00→20:14)
[2016-03-30] MEDS: SODIUM CHLORIDE 0.9% FLUSH 5 ML FLUSH IVF SCH (09:00)
[2016-03-30] MEDS: DOCUSATE SODIUM 100 MG CAP PO SCH ×2 (09:20→20:14)
[2016-03-30] MEDS: POTASSIUM CHLORIDE 20 MEQ CONTROLLED RELEASE TAB PO SCH ×3 (09:20→17:50)
[2016-03-30] MEDS: PANTOPRAZOLE SODIUM 40 MG VIAL IV SCH (09:21)
[2016-03-30] MEDS: DEXTROSE 5% IN WATE 1000ML INJ 1,000 ML IV SCH (10:34)
--- NOTE | 2016-03-30 10:44 | HHI.PR ---
Subjective Remarks mostly. minimal verbal. followed commands Objective Vitals in chair position mostly nonverbal simple commands anasarca esparza. picc line lue ngt. clamped heart reg lung no wheeze/crackles abd bs/nd Vital Signs Date Time Temp Pulse Resp B/P Pulse Ox O2 Delivery O2 Flow Rate FiO2 03/30/16 08:46 94 Nasal Cannula 4.00 03/30/16 06:00 97 03/30/16 04:00 96 03/30/16 04:00 98.9 96 18 153/69 96 03/30/16 02:00 86 03/30/16 00:30 98.7 80 27 155/73 98 03/30/16 00:00 80 03/29/16 22:00 74 03/29/16 20:55 96 3.00 03/29/16 20:00 98.8 85 25 154/72 96 03/29/16 20:00 85 03/29/16 20:00 96 Nasal Cannula 3.00 03/29/16 18:00 78 03/29/16 16:00 74 03/29/16 16:00 98.9 74 21 150/70 97 03/29/16 14:00 80 03/29/16 12:00 99.4 84 24 140/67 96 03/29/16 12:00 84 03/29/16 11:42 100 Nasal Cannula 3.00 03/29/16 03/29/16 03/30/16 15:00 23:00 07:00 Intake Total 922 ml 844 ml 1230 ml Output Total 1700 ml 1650 ml 500 ml Balance -778 ml -806 ml 730 ml Intake Oral 0 ml 0 ml 0 ml IV Total 223 ml 403 ml 396 ml Tube Feeding 99 ml 131 ml 284 ml Tube Irrigant 100 ml 60 ml 50 ml Other 500 ml 250 ml 500 ml Output Urine Total 1700 ml 1650 ml 500 ml # Bowel Movements 4 0 1 Result Diagram: 03/28/16 0435 03/30/16 0526 Imaging Last Impressions Chest X-Ray 03/09/16 0000 Signed Impressions: Service Date/Time: February 13:11 - CONCLUSION: Left lower lobe atelectasis versus infiltrate is unchanged. Maxwell Hsu Jr., MD Abdomen X-Ray 03/09/16 0000 Signed Impressions: Service Date/Time: February 11:11 - CONCLUSION: 1. The tip of the weighted feeding tube is located in the descending portion of the duodenum. Scar Resendez MD Abdomen/Pelvis CT 03/08/16 0000 Signed Impressions: Service Date/Time: Tuesday, March 08, 2016 15:28 - CONCLUSION: Severe changes of pancreatitis, potentially with areas of hemorrhagic conversion. Darrian Engel MD GI Procedure 03/05/16 0000 Signed Impressions: Service Date/Time: Friday, March 04, 2016 23:02 - CONCLUSION: ERCP as above. Vidal Ye MD Gall Bladder Ultrasound 03/04/16 0000 Signed Impressions: Service Date/Time: Friday, March 04, 2016 19:36 - CONCLUSION: 1. Thick-walled gallbladder with some pericholecystic fluid and multiple gallstones in the region of the neck. The findings are suggestive of acute cholecystitis. Clinical correlation is recommended. 2. Fatty liver. 3. Minimal ascites within Polanco's pouch. 4. Poor visualization of the pancreas due to shadowing bowel gas. Odilon Butler MD Cholangiopancreatography MRI 03/04/16 0000 Signed Impressions: Service Date/Time: Friday, March 04, 2016 18:24 - CONCLUSION: 1. Extensive edema throughout the retroperitoneum and pancreas. No abscess or pseudocyst. 2. Tiny layering gallstones within the gallbladder. No discrete common bile duct stone. There is tapering of the common bile duct within the pancreatic head felt to be secondary to the edema within the pancreas. No discrete mass or choledocholithiasis. No intrahepatic or extrahepatic ductal dilatation. Maxwell Hsu Jr., MD Date of Insertion: Mar 22, 2016 Line: PICC Side: Left Location: Antecubital A/P Problem List: (1) Severe sepsis with acute organ dysfunction Status: Acute Plan: - Pt admitted with sudden onset of abd pain, nausea/vomiting on 03/04/16 - LFTs were elevated at TBili 4.0, AST 472, ALT 378, AlkPhos 154 with Lipase of 7635 - Also noted to have an elevated Lactic acid of 4.5 and was admitted to ICU - MRCP (03/04) --> Extensive edema throughout the retroperitoneum and pancreas. No abscess or pseudocyst. Tiny layering gallstones within the gallbladder. No discrete common bile duct stone. There is tapering of the common bile duct within the pancreatic head felt to be secondary to the edema within the pancreas. No discrete mass or choledocholithiasis. No intrahepatic or extrahepatic ductal dilatation. - GB US (03/04) --> Thick-walled gallbladder with some pericholecystic fluid and multiple gallstones in the region of the neck. The findings are suggestive of acute cholecystitis. Fatty liver. Minimal ascites within Polanco's pouch. - Pt was seen by GI and underwent ERCP with stent placement in the CBD on - repeat CT Abd/pelvis (03/08/16) severe pancreatitis, potentially with areas of hemorrhagic conversion. -CT abdomen and pelvis 03/15 appears to be less pneumatosis intestinalis in the ascending colon/noted and likely colonic ileus admitted with cholangitis. 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 seems to correct to about 11.9. w/up in progress. encephalopathy. could be metabolic related to na/ca anasarca. 20 kg weight gain since admission hypokalemia related to diuretic cont tube feeding and po. cont free water flush. added gentle d5w and lasix. calcitonin trial. need kcl replacement. recheck na and ca level and monitor for cognitive improvement PT daily dvt prophylaxis cont abx per ID laxatives and reglan stopped cont ppi discussed with nursing and charge nurse. mental status is same for quite some time. no acute change today. (2) Pancreatitis, acute Status: Acute Plan: - See above. (3) Cholangitis Status: Acute Plan: - See above (4) Ventricular tachycardia (paroxysmal) Status: Acute Plan: - Cardiology consulted on 03/08 due to pt having a two runs of ventricular tachycardia on 03/07 which was felt to be secondary to her acute illness. - Pt was started on Metoprolol 50mg Q12H - No further issues with dysrhythmia noted - 2D echo (03/08) - Estimated EF 55-60% - Mild tricuspid regurgitation - PA peak pressure 39mmHg (5) HTN (hypertension) Status: Chronic Plan: - Cont. Metoprolol 50mg BID - Cont. Lisinopril 10mg BID (6) Renal insufficiency Status: Acute Plan: -see above Problem Qualifiers (1) Pancreatitis, acute: Saleem Rloon MD Mar 30, 2016 10:44
[2016-03-30] MEDS: WATER IV SCH ×2 (11:28)
[2016-03-30] MEDS: MICAFUNGIN IV SCH ×2 (11:28)
[2016-03-30] MEDS: DEXTROSE 5% IV SCH ×2 (11:28)
[2016-03-30] MEDS: CALCITONIN SALMON INJ 400 UNITS/2 ML VIAL SQ SCH (11:29)
--- NOTE | 2016-03-30 12:11 | HHI.GIFU ---
Subjective Remarks Up in chair. Denies abdominal pain. Does not know if she had a bowel movement. States she did eat breakfast today, but this is not documented. She is getting night time feedings. (Nakita Crowe) Objective Vitals I&O Vital Signs Date Time Temp Pulse Resp B/P Pulse Ox O2 Delivery O2 Flow Rate FiO2 03/30/16 08:46 94 Nasal Cannula 4.00 03/30/16 06:00 97 03/30/16 04:00 96 03/30/16 04:00 98.9 96 18 153/69 96 03/30/16 02:00 86 03/30/16 00:30 98.7 80 27 155/73 98 03/30/16 00:00 80 03/29/16 22:00 74 03/29/16 20:55 96 3.00 03/29/16 20:00 98.8 85 25 154/72 96 03/29/16 20:00 85 03/29/16 20:00 96 Nasal Cannula 3.00 03/29/16 18:00 78 03/29/16 16:00 74 03/29/16 16:00 98.9 74 21 150/70 97 03/29/16 14:00 80 I/O 03/29/16 03/29/16 03/29/16 03/30/16 03/30/16 03/30/16 07:00 15:00 23:00 07:00 15:00 23:00 Intake Total 1210 ml 922 ml 844 ml 1230 ml Output Total 375 ml 1700 ml 1650 ml 500 ml Balance 835 ml -778 ml -806 ml 730 ml Intake Oral 200 ml 0 ml 0 ml 0 ml IV Total 175 ml 223 ml 403 ml 396 ml Tube Feeding 315 ml 99 ml 131 ml 284 ml Tube Irrigant 20 ml 100 ml 60 ml 50 ml Other 500 ml 500 ml 250 ml 500 ml Output Urine Total 375 ml 1700 ml 1650 ml 500 ml # Bowel Movements 1 4 0 1 Laboratory Laboratory Tests Test 03/30/16 05:26 Sodium Level 151 Potassium Level 2.9 Chloride Level 112 Carbon Dioxide Level 32.0 Anion Gap 7 Blood Urea Nitrogen 22 Creatinine 0.53 Estimat Glomerular Filtration 140 Rate Random Glucose 156 Calcium Level 10.1 Protein Corrected Calcium 10.0 Total Protein 7.3 Imaging Last Impressions Chest X-Ray 03/28/16 0600 Signed Impressions: Service Date/Time: Monday, March 28, 2016 05:19 - CONCLUSION: Cardiomegaly with bilateral perihilar opacities and left lower lobe density. Wilian Rojas MD Abdomen X-Ray 03/26/16 0600 Signed Impressions: Service Date/Time: Saturday, March 26, 2016 05:18 - CONCLUSION: Improving distended loops of bowel. The metallic tip feeding tube has changed position and is now projected in the stomach. Maxwell Choi MD Lower Extremity Ultrasound 03/20/16 0000 Signed Impressions: Service Date/Time: Sunday, March 20, 2016 14:32 - CONCLUSION: No DVT of either lower extremity. Darrian Leary MD Abdomen/Pelvis CT 03/15/16 0000 Signed Impressions: Service Date/Time: Tuesday, March 15, 2016 15:26 - CONCLUSION: 1. Compared to the prior exam, the previously noted gas bubbles in the wall of the cecum have resolved. 2. Otherwise, no other new or significant changes compared to the prior study. Wilver Bond MD Head CT 03/14/16 0000 Signed Impressions: Service Date/Time: Monday, March 14, 2016 16:13 - CONCLUSION: Normal examination. Jere Toro MD Renal Ultrasound 03/13/16 0000 Signed Impressions: Service Date/Time: Sunday, March 13, 2016 16:39 - CONCLUSION: Unremarkable renal ultrasound. Abisai Lundy MD GI Procedure 03/05/16 0000 Signed Impressions: Service Date/Time: Friday, March 04, 2016 23:02 - CONCLUSION: ERCP as above. Vidal Ye MD Gall Bladder Ultrasound 03/04/16 0000 Signed Impressions: Service Date/Time: Friday, March 04, 2016 19:36 - CONCLUSION: 1. Thick-walled gallbladder with some pericholecystic fluid and multiple gallstones in the region of the neck. The findings are suggestive of acute cholecystitis. Clinical correlation is recommended. 2. Fatty liver. 3. Minimal ascites within Polanco's pouch. 4. Poor visualization of the pancreas due to shadowing bowel gas. Odilon Butler MD Cholangiopancreatography MRI 03/04/16 0000 Signed Impressions: Service Date/Time: Friday, March 04, 2016 18:24 - CONCLUSION: 1. Extensive edema throughout the retroperitoneum and pancreas. No abscess or pseudocyst. 2. Tiny layering gallstones within the gallbladder. No discrete common bile duct stone. There is tapering of the common bile duct within the pancreatic head felt to be secondary to the edema within the pancreas. No discrete mass or choledocholithiasis. No intrahepatic or extrahepatic ductal dilatation. Maxwell Hsu Jr., MD Physical Exam NECK: Neck is supple, no JVD, no lymphadenopathy. CHEST: Resp. shallow, mildly tachypneic. CARDIAC: RRR ABDOMEN: Soft, distended, diffuse tenderness, hypoactive bowel sounds. EXTREMITIES: Generalized edema. SKIN: Lethargic, more today than yesterday (Nakita Crowe) Assessment and Plan Plan ASSESSMENT: - Severe acute gallstone pancreatitis. S/P ERCP (03/04/16)-----> stricture in the distal common bile duct, normal intrahepatic ducts, normal pancreatic ducts , patent cystic duct. S/P stent placement. Dobhoff, but clamped. Triglycerides 117. IgG [address] scan 03/15 with diffuse inflammatory changes surrounding the entire pancreas characteristic of pancreatitis. No new or significant changes are demonstrated compared to the prior study. Improving. WBC improving. TPN off. Has puree diet but has poor po intake. Getting TF at hs. - Severe diffuse ileus. RESOLVED. Currently on Reglan, Senokot, Colace. + BM. - Biliary obstruction/cholangitis secondary to pancreatic head edema. S/P ERCP (03/04/16)-----> stricture in the distal common bile duct, normal intrahepatic ducts, normal pancreatic ducts, patent cystic duct. S/P stent placement. LFTs are stable. - Acute cholecystitis. S/P GS evaluation. - Acute sepsis, Leukocytosis. Abx per ID. Improving. - Acute renal failure. Resolved. Off HD. - Resp. Insuff. Resp. shallow/tachypneic. Diminished breath sounds. - Anemia. H/H 8.2/26.4. Recommendations - Puree diet with nectar thickened liquids, TF at night - Cont. Senokot - Cont. Colace - Cont. Lactulose - Abx per ID - S/P Relistor (03/16/16) - CCM following - Supportive care - Further recommendations to follow - Patient seen and examined by Dr. Kraft and myself and this note is written on his behalf. (Nakita Crowe) Physician Comments Patient was seen and examined Agree with above Continue with current supportive care Monitor labs (Rob Kraft MD) Nakita Crowe Mar 30, 2016 12:11 Rob Kraft MD Mar 30, 2016 19:24
[2016-03-30] MEDS: FUROSEMIDE 20 MG/2 ML VIAL IV PUSH SCH (17:48)
[2016-03-31] VITALS (13 sets, daily range): BP systolic 137–164; BP diastolic 60–72; PULSE 72–114; RESP 19–32; TEMP 98.3–99.5; O2SAT 92–99
[2016-03-31] MEDS: MEROPENEM INJ 1,000 MG in SODIUM CHLORIDE 0.9% INJ 100 ML IV SCH ×3 (03:02→17:08)
[2016-03-31] MEDS: INSULIN NovoLIN REGULAR SUPPLEMENTAL SCALE SQ SCH ×7 (04:00→23:52)
[2016-03-31] MEDS: CHLORHEXIDINE GLUCONATE 2 % 1 PACK (2 CLOTHS) TOP SCH (04:00)
[2016-03-31] MEDS: FREE WATER G-TUBE SCH ×7 (04:00→23:49)
[2016-03-31] MEDS: ISOSORBIDE DINITRATE 10 MG TAB PO SCH ×3 (05:25→21:35)
[2016-03-31] MEDS: HEPARIN SODIUM - SQ 10,000 UNITS/ML VIAL SQ SCH ×3 (05:25→21:35)
[2016-03-31] MEDS: METOPROLOL TARTRATE 50 MG TAB PO SCH ×3 (05:25→21:38)
[2016-03-31] MEDS: hydrALAZINE HCL 10 MG TAB PO SCH ×3 (05:25→21:35)
[2016-03-31] MEDS: FUROSEMIDE 20 MG/2 ML VIAL IV PUSH SCH ×2 (07:54→17:08)
[2016-03-31] MEDS: PANTOPRAZOLE SODIUM 40 MG VIAL IV SCH (08:31)
[2016-03-31] MEDS: SODIUM CHLORIDE 0.9% FLUSH 5 ML FLUSH IVF SCH (08:32)
[2016-03-31] MEDS: DOCUSATE SODIUM 100 MG CAP PO SCH ×2 (08:32→20:49)
[2016-03-31] MEDS: SODIUM CHLORIDE 0.9% FLUSH 5 ML FLUSH IV FLUSH SCH ×2 (08:32→20:49)
[2016-03-31] MEDS: POTASSIUM CHLORIDE 20 MEQ CONTROLLED RELEASE TAB PO SCH ×3 (08:32→17:08)
[2016-03-31 08:35] LABS: BICARBONATE 34.8 MEQ/L (21.0-32.0); MAGNESIUM 1.8 MG/DL (1.5-2.5)
[2016-03-31 08:38] LABS: POTASSIUM 2.9 MEQ/L (3.5-5.1)
[2016-03-31] MEDS: hydrALAZINE HCL 20 MG/ML VIAL IV PUSH PRN ×3 (08:45→17:09)
--- NOTE | 2016-03-31 08:49 | HHI.PR ---
Subjective Remarks lethargic. opens eyes Objective Vitals lethargic. opens eyes minimal verbalization anasarca heart reg lung cta abd bs/nd ext anasarca vilma, ngt,picc Vital Signs Date Time Temp Pulse Resp B/P Pulse Ox O2 Delivery O2 Flow Rate FiO2 03/31/16 06:00 78 03/31/16 04:00 92 03/31/16 04:00 99.2 92 23 162/72 92 03/31/16 02:00 78 03/31/16 00:00 98.9 84 21 152/69 93 03/31/16 00:00 72 03/30/16 22:00 75 03/30/16 21:05 94 Nasal Cannula 4.00 03/30/16 20:00 78 03/30/16 20:00 100.6 92 25 169/73 96 03/30/16 19:00 97 Nasal Cannula 3.00 03/30/16 18:00 87 03/30/16 16:00 94 03/30/16 16:00 99.4 94 28 159/86 95 03/30/16 14:00 107 03/30/16 12:00 100.0 101 20 145/84 97 03/30/16 12:00 101 03/30/16 10:00 92 03/30/16 03/30/16 03/31/16 15:00 23:00 07:00 Intake Total 900 ml 1221 ml 1201 ml Output Total 1700 ml 1450 ml 450 ml Balance -800 ml -229 ml 751 ml Intake Oral 50 ml IV Total 650 ml 527 ml 377 ml Tube Feeding 444 ml 274 ml Other 250 ml 250 ml 500 ml Output Urine Total 700 ml 1450 ml 450 ml Stool Total 1000 ml # Bowel Movements 0 2 Result Diagram: 03/28/16 0435 03/31/16 0749 Imaging Last Impressions Chest X-Ray 03/09/16 0000 Signed Impressions: Service Date/Time: February 13:11 - CONCLUSION: Left lower lobe atelectasis versus infiltrate is unchanged. Maxwell Hsu Jr., MD Abdomen X-Ray 03/09/16 0000 Signed Impressions: Service Date/Time: February 11:11 - CONCLUSION: 1. The tip of the weighted feeding tube is located in the descending portion of the duodenum. Scar Resendez MD Abdomen/Pelvis CT 03/08/16 0000 Signed Impressions: Service Date/Time: Tuesday, March 08, 2016 15:28 - CONCLUSION: Severe changes of pancreatitis, potentially with areas of hemorrhagic conversion. Darrian Engel MD GI Procedure 03/05/16 0000 Signed Impressions: Service Date/Time: Friday, March 04, 2016 23:02 - CONCLUSION: ERCP as above. Vidal Ye MD Gall Bladder Ultrasound 03/04/16 0000 Signed Impressions: Service Date/Time: Friday, March 04, 2016 19:36 - CONCLUSION: 1. Thick-walled gallbladder with some pericholecystic fluid and multiple gallstones in the region of the neck. The findings are suggestive of acute cholecystitis. Clinical correlation is recommended. 2. Fatty liver. 3. Minimal ascites within Polanco's pouch. 4. Poor visualization of the pancreas due to shadowing bowel gas. Odilon Butler MD Cholangiopancreatography MRI 03/04/16 0000 Signed Impressions: Service Date/Time: Friday, March 04, 2016 18:24 - CONCLUSION: 1. Extensive edema throughout the retroperitoneum and pancreas. No abscess or pseudocyst. 2. Tiny layering gallstones within the gallbladder. No discrete common bile duct stone. There is tapering of the common bile duct within the pancreatic head felt to be secondary to the edema within the pancreas. No discrete mass or choledocholithiasis. No intrahepatic or extrahepatic ductal dilatation. Maxwell Hsu Jr., MD Date of Insertion: Mar 22, 2016 Line: PICC Side: Left Location: Antecubital A/P Problem List: (1) Severe sepsis with acute organ dysfunction Status: Acute Plan: - Pt admitted with sudden onset of abd pain, nausea/vomiting on 03/04/16 - LFTs were elevated at TBili 4.0, AST 472, ALT 378, AlkPhos 154 with Lipase of 7635 - Also noted to have an elevated Lactic acid of 4.5 and was admitted to ICU - MRCP (03/04) --> Extensive edema throughout the retroperitoneum and pancreas. No abscess or pseudocyst. Tiny layering gallstones within the gallbladder. No discrete common bile duct stone. There is tapering of the common bile duct within the pancreatic head felt to be secondary to the edema within the pancreas. No discrete mass or choledocholithiasis. No intrahepatic or extrahepatic ductal dilatation. - GB US (03/04) --> Thick-walled gallbladder with some pericholecystic fluid and multiple gallstones in the region of the neck. The findings are suggestive of acute cholecystitis. Fatty liver. Minimal ascites within Polanco's pouch. - Pt was seen by GI and underwent ERCP with stent placement in the CBD on - repeat CT Abd/pelvis (03/08/16) severe pancreatitis, potentially with areas of hemorrhagic conversion. -CT abdomen and pelvis 03/15 appears to be less pneumatosis intestinalis in the ascending colon/noted and likely colonic ileus admitted with cholangitis. 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 seems to correct to about 11.9. w/up in progress. encephalopathy. could be metabolic related to na/ca anasarca. 20 kg weight gain since admission hypokalemia related to diuretic cont tube feeding and po. cont free water flush. added gentle d5w and lasix. calcitonin trial. aggressive kcl replacement. recheck na and ca level and monitor for cognitive improvement PT daily dvt prophylaxis cont abx per ID laxatives and reglan stopped cont ppi discussed with nursing and charge nurse. mental status is same for quite some time. no acute change today. (2) Pancreatitis, acute Status: Acute Plan: - See above. (3) Cholangitis Status: Acute Plan: - See above (4) Ventricular tachycardia (paroxysmal) Status: Acute Plan: - Cardiology consulted on 03/08 due to pt having a two runs of ventricular tachycardia on 03/07 which was felt to be secondary to her acute illness. - Pt was started on Metoprolol 50mg Q12H - No further issues with dysrhythmia noted - 2D echo (03/08) - Estimated EF 55-60% - Mild tricuspid regurgitation - PA peak pressure 39mmHg (5) HTN (hypertension) Status: Chronic Plan: - Cont. Metoprolol 50mg BID - Cont. Lisinopril 10mg BID (6) Renal insufficiency Status: Acute Plan: -see above Problem Qualifiers (1) Pancreatitis, acute: Saleem Rolon MD Mar 31, 2016 08:48
[2016-03-31] MEDS: CALCITONIN SALMON INJ 400 UNITS/2 ML VIAL SQ SCH (08:57)
[2016-03-31] MEDS: RESP: ALBUTEROL 2.5 MG/IPRATROPIUM 0.5 MG NEB (PRN) INH (09:29)
[2016-03-31] MEDS: POTASSIUM CHLOR 40 MEQ PREMIX 100 ML IV SCH ×2 (09:31→15:44)
[2016-03-31] MEDS: DEXTROSE 5% IN WATE 1000ML INJ 1,000 ML IV SCH (09:36)
[2016-03-31] MEDS: MICAFUNGIN IV SCH ×2 (11:13)
[2016-03-31] MEDS: WATER IV SCH ×2 (11:13)
[2016-03-31] MEDS: DEXTROSE 5% IV SCH ×2 (11:13)
--- NOTE | 2016-03-31 17:34 | HHI.IDPN ---
Subjective Subjective Remarks ID [email or web address] for Dr Ayers chart reviewed afebrile today, but had low grade fever yday off pressors tolerating tube feeds + watery diarrhea, C.diff negative Antibiotics Meropenem IV Micafungin IV Lines Line sites with no e/o infection Past Medical History reviewed. Allergies: Coded Allergies: No Known Allergies (Verified , 02/18/15) Objective . Vital Signs Date Time Temp Pulse Resp B/P Pulse Ox O2 Delivery O2 Flow Rate FiO2 03/31/16 16:00 114 03/31/16 16:00 98.3 114 29 149/65 95 03/31/16 14:00 114 03/31/16 12:00 92 03/31/16 12:00 98.9 100 19 137/65 95 03/31/16 10:00 81 03/31/16 09:31 92 Nasal Cannula 4.00 03/31/16 08:00 74 03/31/16 08:00 98.6 74 24 164/71 99 03/31/16 07:00 96 Nasal Cannula 4.00 03/31/16 06:00 78 03/31/16 04:00 92 03/31/16 04:00 99.2 92 23 162/72 92 03/31/16 02:00 78 03/31/16 00:00 98.9 84 21 152/69 93 03/31/16 00:00 72 03/30/16 22:00 75 03/30/16 21:05 94 Nasal Cannula 4.00 03/30/16 20:00 78 03/30/16 20:00 100.6 92 25 169/73 96 03/30/16 19:00 97 Nasal Cannula 3.00 03/30/16 18:00 87 03/30/16 03/30/16 03/31/16 14:59 22:59 06:59 Intake Total 900 ml 1221 ml 1201 ml Output Total 1700 ml 1450 ml 450 ml Balance -800 ml -229 ml 751 ml Intake Oral 50 ml IV Total 650 ml 527 ml 377 ml Tube Feeding 444 ml 274 ml Other 250 ml 250 ml 500 ml Output Urine Total 700 ml 1450 ml 450 ml Stool Total 1000 ml # Bowel Movements 0 2 . Laboratory Tests Test 03/30/16 03/30/16 03/31/16 05:26 14:13 07:49 Sodium Level 151 MEQ/L 149 MEQ/L Potassium Level 2.9 MEQ/L 3.4 MEQ/L 2.9 MEQ/L Chloride Level 112 MEQ/L 110 MEQ/L Carbon Dioxide Level 32.0 MEQ/L 34.8 MEQ/L Anion Gap 7 MEQ/L 4 MEQ/L Blood Urea Nitrogen 22 MG/DL 19 MG/DL Creatinine 0.53 MG/DL 0.50 MG/DL Estimat Glomerular Filtration 140 ML/MIN 150 ML/MIN Rate Random Glucose 156 MG/DL 135 MG/DL Calcium Level 10.1 MG/DL 10.5 MG/DL Protein Corrected Calcium 10.0 MG/DL Total Protein 7.3 GM/DL Magnesium Level 1.8 MG/DL Imaging Last Impressions Chest X-Ray 03/28/16 0600 Signed Impressions: Service Date/Time: Monday, March 28, 2016 05:19 - CONCLUSION: Cardiomegaly with bilateral perihilar opacities and left lower lobe density. Wilian Rojas MD Abdomen X-Ray 03/26/16 0600 Signed Impressions: Service Date/Time: Saturday, March 26, 2016 05:18 - CONCLUSION: Improving distended loops of bowel. The metallic tip feeding tube has changed position and is now projected in the stomach. Maxwell Choi MD Lower Extremity Ultrasound 03/20/16 0000 Signed Impressions: Service Date/Time: Sunday, March 20, 2016 14:32 - CONCLUSION: No DVT of either lower extremity. Darrian Leary MD Abdomen/Pelvis CT 03/15/16 0000 Signed Impressions: Service Date/Time: Tuesday, March 15, 2016 15:26 - CONCLUSION: 1. Compared to the prior exam, the previously noted gas bubbles in the wall of the cecum have resolved. 2. Otherwise, no other new or significant changes compared to the prior study. Wilver Bond MD Head CT 03/14/16 0000 Signed Impressions: Service Date/Time: Monday, March 14, 2016 16:13 - CONCLUSION: Normal examination. Jere Toro MD Renal Ultrasound 03/13/16 0000 Signed Impressions: Service Date/Time: Sunday, March 13, 2016 16:39 - CONCLUSION: Unremarkable renal ultrasound. Abisai Lundy MD GI Procedure 03/05/16 0000 Signed Impressions: Service Date/Time: Friday, March 04, 2016 23:02 - CONCLUSION: ERCP as above. Vidal Ye MD Gall Bladder Ultrasound 03/04/16 0000 Signed Impressions: Service Date/Time: Friday, March 04, 2016 19:36 - CONCLUSION: 1. Thick-walled gallbladder with some pericholecystic fluid and multiple gallstones in the region of the neck. The findings are suggestive of acute cholecystitis. Clinical correlation is recommended. 2. Fatty liver. 3. Minimal ascites within Polanco's pouch. 4. Poor visualization of the pancreas due to shadowing bowel gas. Odilon Butler MD Cholangiopancreatography MRI 03/04/16 0000 Signed Impressions: Service Date/Time: Friday, March 04, 2016 18:24 - CONCLUSION: 1. Extensive edema throughout the retroperitoneum and pancreas. No abscess or pseudocyst. 2. Tiny layering gallstones within the gallbladder. No discrete common bile duct stone. There is tapering of the common bile duct within the pancreatic head felt to be secondary to the edema within the pancreas. No discrete mass or choledocholithiasis. No intrahepatic or extrahepatic ductal dilatation. Maxwell Hsu Jr., MD Physical Exam GENERAL: Obese AAF patient, in no distress. SKIN: No rashes, ecchymoses or lesions. Cool and dry. HEAD: Atraumatic. Normocephalic. No temporal or scalp tenderness. EYES: Pupils equal round and reactive. No scleral icterus. ENT: Oral mucosae moist NECK: Trachea midline. Supple, nontender, no meningeal signs. CARDIOVASCULAR: HS audible. No murmur. Well perfused extremeties RESPIRATORY: Clear to auscultation. Breath sounds equal bilaterally but decreased in the bases. GASTROINTESTINAL: Abdomenless tense , + tenderness in RUQ and epigastric region , distended, abd wall edema noted. BS audible MUSCULOSKELETAL: Generalized anasarca noted, improved NEUROLOGICAL: Lethargic Assessment & Plan Remarks SIRS possible Sepsis Acute Severe Pancreatitis with hemorrhage. Acute Pneumatosis Intestinalis (vs anasarca related bowel edema, cdiff) - repeat CT showed resolution of gas bubbles Acute cholangitis Clinicaly appears to have slow improvement All blood clx remain negative Leukocytosis - resolved Diarrhea , C.diff negative Recs: Continue Meropenem IV Continue Micafungin IV repeat blood clx if cont to have fever Sanjana Sen RN, MD Mar 31, 2016 17:34
[2016-03-31] MEDS ORDERED: POTASSIUM CHLORIDE 20 MEQ CONTROLLED RELEASE TAB PO ONE (23:00)
[2016-03-31] MEDS: ACETAMINOPHEN 325 MG TAB PO PRN (23:37)
[2016-03-31] MEDS ORDERED: POTASSIUM CL 40 MEQ/30 ML LIQ UDC PO ONE (23:45)
[2016-04-01] VITALS (10 sets, daily range): BP systolic 146–168; BP diastolic 66–74; PULSE 76–92; RESP 28–37; TEMP 98–100.2; O2SAT 94–96
[2016-04-01] MEDS: MEROPENEM INJ 1,000 MG in SODIUM CHLORIDE 0.9% INJ 100 ML IV SCH ×3 (01:18→17:54)
[2016-04-01] MEDS: CHLORHEXIDINE GLUCONATE 2 % 1 PACK (2 CLOTHS) TOP SCH (01:28)
[2016-04-01] MEDS: FREE WATER G-TUBE SCH ×4 (04:00→20:00)
[2016-04-01 04:15] LABS: BICARBONATE 35.4 MEQ/L (21.0-32.0); POTASSIUM 3.6 MEQ/L (3.5-5.1)
[2016-04-01] MEDS: INSULIN NovoLIN REGULAR SUPPLEMENTAL SCALE SQ SCH ×5 (04:27→20:00)
[2016-04-01] MEDS: ISOSORBIDE DINITRATE 10 MG TAB PO SCH ×3 (05:28→20:24)
[2016-04-01] MEDS: METOPROLOL TARTRATE 50 MG TAB PO SCH ×3 (05:28→20:24)
[2016-04-01] MEDS: HEPARIN SODIUM - SQ 10,000 UNITS/ML VIAL SQ SCH ×3 (05:28→20:26)
[2016-04-01] MEDS: hydrALAZINE HCL 10 MG TAB PO SCH ×3 (05:28→20:24)
[2016-04-01] MEDS: ACETAMINOPHEN/HYDROcodone 325 MG/5 MG TAB PO PRN ×2 (07:49→20:24)
[2016-04-01] MEDS: PANTOPRAZOLE SODIUM 40 MG VIAL IV SCH (08:22)
[2016-04-01] MEDS: FUROSEMIDE 20 MG/2 ML VIAL IV PUSH SCH (08:22)
[2016-04-01] MEDS: SODIUM CHLORIDE 0.9% FLUSH 5 ML FLUSH IV FLUSH SCH ×2 (08:23→20:24)
[2016-04-01] MEDS: SODIUM CHLORIDE 0.9% FLUSH 5 ML FLUSH IVF SCH (08:23)
[2016-04-01] MEDS: DOCUSATE SODIUM 100 MG CAP PO SCH ×2 (08:23→20:24)
[2016-04-01] MEDS ORDERED: POTASSIUM CL 40 MEQ/30 ML LIQ UDC PO SCH (09:00)
--- NOTE | 2016-04-01 09:36 | HHI.PR ---
Subjective Remarks talking a little more not hungry Objective Vitals mild labored breathing follows commands oriented and more verbal heart reg lung diminished abd s/nt ext anasarca heent ngt esparza. picc. Vital Signs Date Time Temp Pulse Resp B/P Pulse Ox O2 Delivery O2 Flow Rate FiO2 04/01/16 08:49 37 04/01/16 08:00 94 Nasal Cannula 2.00 04/01/16 08:00 98.1 91 36 162/73 94 04/01/16 08:00 91 04/01/16 06:00 86 04/01/16 04:00 89 04/01/16 04:00 99.5 89 34 165/74 95 04/01/16 02:00 82 04/01/16 00:02 Nasal Cannula 2.00 04/01/16 00:00 89 04/01/16 00:00 100.2 89 32 146/66 96 03/31/16 22:00 97 03/31/16 20:00 99.5 93 32 139/60 96 03/31/16 20:00 93 03/31/16 19:00 Nasal Cannula 3.00 03/31/16 18:00 94 03/31/16 16:00 114 03/31/16 16:00 98.3 114 29 149/65 95 03/31/16 14:00 114 03/31/16 12:00 92 03/31/16 12:00 98.9 100 19 137/65 95 03/31/16 10:00 81 03/31/16 03/31/16 04/01/16 15:00 23:00 07:00 Intake Total 1336 ml 737 ml 1183 ml Output Total 940 ml 625 ml 350 ml Balance 396 ml 112 ml 833 ml IV Total 586 ml 340 ml 398 ml Tube Feeding 0 ml 147 ml 285 ml Other 750 ml 250 ml 500 ml Output Urine Total 940 ml 625 ml 350 ml # Bowel Movements 2 0 1 Result Diagram: 03/28/16 0435 04/01/16 0335 Imaging Last Impressions Chest X-Ray 03/09/16 0000 Signed Impressions: Service Date/Time: February 13:11 - CONCLUSION: Left lower lobe atelectasis versus infiltrate is unchanged. Maxwell Hsu Jr., MD Abdomen X-Ray 03/09/16 0000 Signed Impressions: Service Date/Time: February 11:11 - CONCLUSION: 1. The tip of the weighted feeding tube is located in the descending portion of the duodenum. Scar Resendez MD Abdomen/Pelvis CT 03/08/16 0000 Signed Impressions: Service Date/Time: Tuesday, March 08, 2016 15:28 - CONCLUSION: Severe changes of pancreatitis, potentially with areas of hemorrhagic conversion. Darrian Engel MD GI Procedure 03/05/16 0000 Signed Impressions: Service Date/Time: Friday, March 04, 2016 23:02 - CONCLUSION: ERCP as above. Vidal Ye MD Gall Bladder Ultrasound 03/04/16 0000 Signed Impressions: Service Date/Time: Friday, March 04, 2016 19:36 - CONCLUSION: 1. Thick-walled gallbladder with some pericholecystic fluid and multiple gallstones in the region of the neck. The findings are suggestive of acute cholecystitis. Clinical correlation is recommended. 2. Fatty liver. 3. Minimal ascites within Polanco's pouch. 4. Poor visualization of the pancreas due to shadowing bowel gas. Odilon Butler MD Cholangiopancreatography MRI 03/04/16 0000 Signed Impressions: Service Date/Time: Friday, March 04, 2016 18:24 - CONCLUSION: 1. Extensive edema throughout the retroperitoneum and pancreas. No abscess or pseudocyst. 2. Tiny layering gallstones within the gallbladder. No discrete common bile duct stone. There is tapering of the common bile duct within the pancreatic head felt to be secondary to the edema within the pancreas. No discrete mass or choledocholithiasis. No intrahepatic or extrahepatic ductal dilatation. Maxwell Hsu Jr., MD Date of Insertion: Mar 22, 2016 Line: PICC Side: Left Location: Antecubital A/P Problem List: (1) Severe sepsis with acute organ dysfunction Status: Acute Plan: - Pt admitted with sudden onset of abd pain, nausea/vomiting on 03/04/16 - LFTs were elevated at TBili 4.0, AST 472, ALT 378, AlkPhos 154 with Lipase of 7635 - Also noted to have an elevated Lactic acid of 4.5 and was admitted to ICU - MRCP (03/04) --> Extensive edema throughout the retroperitoneum and pancreas. No abscess or pseudocyst. Tiny layering gallstones within the gallbladder. No discrete common bile duct stone. There is tapering of the common bile duct within the pancreatic head felt to be secondary to the edema within the pancreas. No discrete mass or choledocholithiasis. No intrahepatic or extrahepatic ductal dilatation. - GB US (03/04) --> Thick-walled gallbladder with some pericholecystic fluid and multiple gallstones in the region of the neck. The findings are suggestive of acute cholecystitis. Fatty liver. Minimal ascites within Polanco's pouch. - Pt was seen by GI and underwent ERCP with stent placement in the CBD on - repeat CT Abd/pelvis (03/08/16) severe pancreatitis, potentially with areas of hemorrhagic conversion. -CT abdomen and pelvis 03/15 appears to be less pneumatosis intestinalis in the ascending colon/noted and likely colonic ileus admitted with cholangitis. 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 seems to correct to about 11.9. w/up in progress. encephalopathy. could be metabolic related to na/ca anasarca. 20 kg weight gain since admission hypokalemia related to diuretic cont tube feeding and po. cont free water flush. added gentle d5w and lasix.increase lasix and kcl consider pamidronate check kub for ngt placement recheck na and ca level and monitor for cognitive improvement PT daily dvt prophylaxis cont abx per ID laxatives and reglan stopped cont ppi discussed with nursing and charge nurse. mental status is same for quite some time. no acute change today. (2) Pancreatitis, acute Status: Acute Plan: - See above. (3) Cholangitis Status: Acute Plan: - See above (4) Ventricular tachycardia (paroxysmal) Status: Acute Plan: - Cardiology consulted on 03/08 due to pt having a two runs of ventricular tachycardia on 03/07 which was felt to be secondary to her acute illness. - Pt was started on Metoprolol 50mg Q12H - No further issues with dysrhythmia noted - 2D echo (03/08) - Estimated EF 55-60% - Mild tricuspid regurgitation - PA peak pressure 39mmHg (5) HTN (hypertension) Status: Chronic Plan: - Cont. Metoprolol 50mg BID - Cont. Lisinopril 10mg BID (6) Renal insufficiency Status: Acute Plan: -see above Problem Qualifiers (1) Pancreatitis, acute: Saleem Rolon MD Apr 01, 2016 09:36
--- NOTE | 2016-04-01 10:15 | RADRPT ---
EXAM DATE/TIME: 04/01/2016 10:02 [facility] COMPARISON: No previous studies available for comparison. INDICATIONS : Evaluate for dobhoff placement. MEDICAL HISTORY : Chronic obstructive pulmonary disease. Carcinoma, breast. Hypertension. SURGICAL HISTORY : Mastectomy, right. Hysterectomy. ENCOUNTER: Subsequent ACUITY: 1 day PAIN SCORE: Non-responsive. LOCATION: Abdomen FINDINGS: Examination of the abdomen demonstrates a normal bowel gas pattern. No free air is identified. No o rganomegaly is evident. Osseous structures are intact. CONCLUSION: No evidence of obstruction. A feeding tube is in place. Its tip is in the distal stomach and a likely advanced into the duodenum if advanced further Thai Reno MD on April 01, 2016 at 10:14 Board Certified Radiologist. This report was verified electronically.
--- NOTE | 2016-04-01 10:15 | RADRPT ---
EXAM DATE/TIME: 04/01/2016 09:58 [place] COMPARISON: CHEST SINGLE AP, March 28, 2016, 5:19. INDICATIONS : Shortness of breath. MEDICAL HISTORY : Chronic obstructive pulmonary disease. Carcinoma, breast. Hypertension. SURGICAL HISTORY : Mastectomy, right. ENCOUNTER: Subsequent ACUITY: 2 months PAIN SCORE: Non-responsive. LOCATION: chest FINDINGS: A single view of the chest demonstrates persistent perihilar vascular congestion with borderline card iomegaly. Small lung volumes. Left-sided PICC line and feeding tube both in good position. Ossific fr agment adjacent to the glenohumeral joint likely loose body. Osseous structures are intact. CONCLUSION: Persistent perihilar vascular congestion with small lung volumes. Thai Reno MD on April 01, 2016 at 10:13 Board Certified Radiologist. This report was verified electronically.
[2016-04-01] MEDS: hydrALAZINE HCL 20 MG/ML VIAL IV PUSH PRN ×3 (10:20→17:05)
[2016-04-01] MEDS: WATER IV SCH ×2 (11:24)
[2016-04-01] MEDS: MICAFUNGIN IV SCH ×2 (11:24)
[2016-04-01] MEDS: DEXTROSE 5% IV SCH ×2 (11:24)
[2016-04-01] MEDS: POTASSIUM CL 40 MEQ/30 ML LIQ UDC PO SCH ×2 (14:00→17:54)
--- NOTE | 2016-04-01 14:57 | HHI.GIFU ---
Subjective Remarks Patient with labor respiration, not verbal, answers yes or no. Denies abd pain. Per nurse, she wasn't able to eat by mouth, she would hold the food in her mouth , so she has been only TF. She is having liquid stools, negative for C-diff. ( Otis Barreto IVONNE) Objective Vitals I&O Vital Signs Date Time Temp Pulse Resp B/P Pulse Ox O2 Delivery O2 Flow Rate FiO2 04/01/16 12:00 90 04/01/16 12:00 99.1 88 36 160/71 95 04/01/16 10:38 94 Nasal Cannula 2.00 04/01/16 08:49 37 04/01/16 08:00 94 Nasal Cannula 2.00 04/01/16 08:00 98.1 91 36 162/73 94 04/01/16 08:00 91 04/01/16 06:00 86 04/01/16 04:00 89 04/01/16 04:00 99.5 89 34 165/74 95 04/01/16 02:00 82 04/01/16 00:02 Nasal Cannula 2.00 04/01/16 00:00 89 04/01/16 00:00 100.2 89 32 146/66 96 03/31/16 22:00 97 03/31/16 20:00 99.5 93 32 139/60 96 03/31/16 20:00 93 03/31/16 19:00 Nasal Cannula 3.00 03/31/16 18:00 94 03/31/16 16:00 114 03/31/16 16:00 98.3 114 29 149/65 95 I/O 03/31/16 03/31/16 03/31/16 04/01/16 04/01/16 04/01/16 07:00 15:00 23:00 07:00 15:00 23:00 Intake Total 1201 ml 1336 ml 737 ml 1183 ml 577 ml Output Total 450 ml 940 ml 625 ml 350 ml 650 ml Balance 751 ml 396 ml 112 ml 833 ml -73 ml Intake Oral 50 ml 0 ml IV Total 377 ml 586 ml 340 ml 398 ml 327 ml Tube Feeding 274 ml 0 ml 147 ml 285 ml Other 500 ml 750 ml 250 ml 500 ml 250 ml Output Urine Total 450 ml 940 ml 625 ml 350 ml 650 ml Gastric Drainage Total 0 ml # Bowel Movements 2 2 0 1 0 Laboratory Laboratory Tests Test 03/31/16 04/01/16 21:52 03:35 Potassium Level 3.3 3.6 Sodium Level 150 Chloride Level 111 Carbon Dioxide Level 35.4 Anion Gap 4 Blood Urea Nitrogen 20 Creatinine 0.61 Estimat Glomerular Filtration 119 Rate Random Glucose 183 Calcium Level 10.5 Imaging Last Impressions Chest X-Ray 04/01/16 0000 Signed Impressions: Service Date/Time: Friday, April 01, 2016 09:58 - CONCLUSION: Persistent perihilar vascular congestion with small lung volumes. Thai Reno MD Abdomen X-Ray 04/01/16 0000 Signed Impressions: Service Date/Time: Friday, April 01, 2016 10:02 - CONCLUSION: No evidence of obstruction. A feeding tube is in place. Its tip is in the distal stomach and a likely advanced into the duodenum if advanced further Thai Reno MD Lower Extremity Ultrasound 03/20/16 0000 Signed Impressions: Service Date/Time: Sunday, March 20, 2016 14:32 - CONCLUSION: No DVT of either lower extremity. Darrian Leary MD Abdomen/Pelvis CT 03/15/16 0000 Signed Impressions: Service Date/Time: Tuesday, March 15, 2016 15:26 - CONCLUSION: 1. Compared to the prior exam, the previously noted gas bubbles in the wall of the cecum have resolved. 2. Otherwise, no other new or significant changes compared to the prior study. Wilver Bond MD Head CT 03/14/16 0000 Signed Impressions: Service Date/Time: Monday, March 14, 2016 16:13 - CONCLUSION: Normal examination. Jere Toro MD Renal Ultrasound 03/13/16 0000 Signed Impressions: Service Date/Time: Sunday, March 13, 2016 16:39 - CONCLUSION: Unremarkable renal ultrasound. Jesús. Stephen Lundy MD GI Procedure 03/05/16 0000 Signed Impressions: Service Date/Time: Friday, March 04, 2016 23:02 - CONCLUSION: ERCP as above. Vidal Ye MD Gall Bladder Ultrasound 03/04/16 0000 Signed Impressions: Service Date/Time: Friday, March 04, 2016 19:36 - CONCLUSION: 1. Thick-walled gallbladder with some pericholecystic fluid and multiple gallstones in the region of the neck. The findings are suggestive of acute cholecystitis. Clinical correlation is recommended. 2. Fatty liver. 3. Minimal ascites within Polanco's pouch. 4. Poor visualization of the pancreas due to shadowing bowel gas. Odilon Butler MD Cholangiopancreatography MRI 03/04/16 0000 Signed Impressions: Service Date/Time: Sunday, March 04, 2016 18:24 - CONCLUSION: 1. Extensive edema throughout the retroperitoneum and pancreas. No abscess or pseudocyst. 2. Tiny layering gallstones within the gallbladder. No discrete common bile duct stone. There is tapering of the common bile duct within the pancreatic head felt to be secondary to the edema within the pancreas. No discrete mass or choledocholithiasis. No intrahepatic or extrahepatic ductal dilatation. Maxwell Hsu Jr., MD Physical Exam NECK: Neck is supple, no JVD, no lymphadenopathy. CHEST: ,tachypneic, labored CARDIAC: RRR ABDOMEN: Soft, distended, diffuse tenderness, hypoactive bowel sounds. EXTREMITIES: Generalized edema. SKIN: Lethargic, non verbal (Amawi,Khawla [employer]) Assessment and Plan Plan ASSESSMENT: - Severe acute gallstone pancreatitis. S/P ERCP (03/04/16)-----> stricture in the distal common bile duct, normal intrahepatic ducts, normal pancreatic ducts , patent cystic duct. S/P stent placement. Dobhoff, but clamped. Triglycerides 117. IgG [address] scan 03/15 with diffuse inflammatory changes surrounding the entire pancreas characteristic of pancreatitis. No new or significant changes are demonstrated compared to the prior study. Improving. WBC improving. TPN off. Has puree diet but has poor po intake. Getting TF at hs. - Severe diffuse ileus. RESOLVED. Currently on Reglan, Senokot, Colace. + BM. - Biliary obstruction/cholangitis secondary to pancreatic head edema. S/P ERCP (03/04/16)-----> stricture in the distal common bile duct, normal intrahepatic ducts, normal pancreatic ducts, patent cystic duct. S/P stent placement. LFTs are stable. - Acute cholecystitis. S/P GS evaluation. - Acute sepsis, Leukocytosis. Abx per ID. Improving. - Acute renal failure. Resolved. Off HD. - Resp. Insuff. Resp. shallow/tachypneic. Diminished breath sounds. - Anemia. H/H 8.2/26.4. 04/01/16 she wasn't able to eat by mouth, she would hold the food in her mouth, so she has been only TF. She is having liquid stools, negative for C-diff. Recommendations - Puree diet with nectar thickened liquids per recommendations, but not able to tolerate, - Cont. TF - Abx per ID - Supportive care - Further recommendations to follow - Patient seen and examined by Dr. Kraft and myself and this note is written on his behalf. (Otis Barreto) Physician Comments Patient seen and examined Agree with above Continue with current supportive care Monitor labs (Rob Kraft MD) Otis Barreto Apr 01, 2016 14:57 Rob Kraft MD Apr 01, 2016 19:47
[2016-04-01] MEDS: LABETALOL HCL 100 MG/20 ML VIAL IV PUSH PRN ×2 (16:15→19:08)
[2016-04-01] MEDS: ACETAMINOPHEN 325 MG TAB PO PRN (16:55)
[2016-04-01] MEDS: FUROSEMIDE 40 MG/4 ML VIAL IV PUSH SCH (17:54)
[2016-04-01] MEDS: DEXTROSE 5% IN WATE 1000ML INJ 1,000 ML IV SCH (18:09)
[2016-04-02] VITALS (14 sets, daily range): BP systolic 120–168; BP diastolic 58–77; PULSE 63–108; RESP 23–33; TEMP 97.6–99; O2SAT 91–98
[2016-04-02] MEDS: INSULIN NovoLIN REGULAR SUPPLEMENTAL SCALE SQ SCH ×6 (00:07→20:00)
[2016-04-02] MEDS: FREE WATER G-TUBE SCH ×6 (00:07→21:20)
[2016-04-02] MEDS: MEROPENEM INJ 1,000 MG in SODIUM CHLORIDE 0.9% INJ 100 ML IV SCH ×3 (01:36→18:27)
[2016-04-02] MEDS: CHLORHEXIDINE GLUCONATE 2 % 1 PACK (2 CLOTHS) TOP SCH (04:00)
[2016-04-02 05:14] LABS: MEAN CELL VOLUME 87.5 FL (80.0-100.0); MEAN CORPUSCULAR HEMOGLOBIN 27.1 PG (27.0-34.0); PLATELET COUNT 264 TH/MM3 (150-450); RED BLOOD COUNT 3.09 MIL/MM3 (4.00-5.30); RED CELL DISTRIBUTION WIDTH 16.8 % (11.6-17.2); REVIEW FLAG FINAL; WHITE BLOOD COUNT 7.5 TH/MM3 (4.0-11.0)
[2016-04-02] MEDS: ISOSORBIDE DINITRATE 10 MG TAB PO SCH ×3 (05:24→21:19)
[2016-04-02] MEDS: hydrALAZINE HCL 10 MG TAB PO SCH ×3 (05:24→21:19)
[2016-04-02] MEDS: METOPROLOL TARTRATE 50 MG TAB PO SCH ×3 (05:25→21:19)
[2016-04-02] MEDS: HEPARIN SODIUM - SQ 10,000 UNITS/ML VIAL SQ SCH ×3 (05:25→21:19)
[2016-04-02] MEDS: ACETAMINOPHEN/HYDROcodone 325 MG/5 MG TAB PO PRN ×2 (05:27→21:19)
[2016-04-02 05:40] LABS: ALKALINE PHOSPHATASE 133 U/L (45-117); ALT (GPT) 24 U/L (10-53); ANION GAP 5 MEQ/L (5-15); AST (GOT) 22 U/L (15-37); BICARBONATE 34.4 MEQ/L (21.0-32.0); BLOOD UREA NITROGEN 19 MG/DL (7-18); CHLORIDE 108 MEQ/L (98-107); GLOMERULAR FILTRATION RATE 131 ML/MIN (>89); POTASSIUM 4.2 MEQ/L (3.5-5.1); SODIUM (NA) 147 MEQ/L (136-145); TOTAL BILIRUBIN ADULT 0.4 MG/DL (0.2-1.0)
[2016-04-02] MEDS: DOCUSATE SODIUM 100 MG CAP PO SCH ×2 (08:10→21:00)
[2016-04-02] MEDS: POTASSIUM CL 40 MEQ/30 ML LIQ UDC PO SCH ×4 (08:10→21:20)
[2016-04-02] MEDS: FUROSEMIDE 40 MG/4 ML VIAL IV PUSH SCH ×2 (08:10→16:12)
[2016-04-02] MEDS: PANTOPRAZOLE SODIUM 40 MG VIAL IV SCH (08:10)
[2016-04-02] MEDS: SODIUM CHLORIDE 0.9% FLUSH 5 ML FLUSH IV FLUSH SCH ×2 (08:11→21:00)
[2016-04-02] MEDS: SODIUM CHLORIDE 0.9% FLUSH 5 ML FLUSH IVF SCH (08:11)
[2016-04-02] MEDS: DEXTROSE 5% IN WATE 1000ML INJ 1,000 ML IV SCH (10:01)
--- NOTE | 2016-04-02 10:30 | HHI.PR ---
Subjective Remarks lethargic brother present pt not eating. Objective Vitals encephalopathic Vital Signs Date Time Temp Pulse Resp B/P Pulse Ox O2 Delivery O2 Flow Rate FiO2 04/02/16 10:00 80 04/02/16 08:00 98.7 80 27 120/58 96 04/02/16 08:00 80 04/02/16 07:00 100 Nasal Cannula 3.00 04/02/16 06:00 65 04/02/16 04:00 84 04/02/16 04:00 98.7 84 30 131/69 97 04/02/16 02:00 80 04/02/16 00:00 97.6 79 27 126/62 98 04/02/16 00:00 74 04/01/16 22:00 76 04/01/16 20:00 92 04/01/16 20:00 98.0 92 28 165/71 95 04/01/16 19:14 96 Nasal Cannula 2.00 04/01/16 18:30 92 Nasal Cannula 3.00 04/01/16 16:00 100.0 90 37 168/74 95 04/01/16 16:00 90 04/01/16 12:00 90 04/01/16 12:00 99.1 88 36 160/71 95 04/01/16 10:38 94 Nasal Cannula 2.00 04/01/16 04/01/16 04/02/16 15:00 23:00 07:00 Intake Total 577 ml 870 ml 902 ml Output Total 650 ml 1350 ml 325 ml Balance -73 ml -480 ml 577 ml Intake Oral 0 ml IV Total 327 ml 382 ml 438 ml Tube Feeding 188 ml 314 ml Other 250 ml 300 ml 150 ml Output Urine Total 650 ml 1350 ml 325 ml Gastric Drainage Total 0 ml # Bowel Movements 0 1 1 Result Diagram: 04/02/16 0439 04/02/16 0439 Imaging Last Impressions Chest X-Ray 03/09/16 0000 Signed Impressions: Service Date/Time: February 13:11 - CONCLUSION: Left lower lobe atelectasis versus infiltrate is unchanged. Maxwell Hsu Jr., MD Abdomen X-Ray 03/09/16 0000 Signed Impressions: Service Date/Time: February 11:11 - CONCLUSION: 1. The tip of the weighted feeding tube is located in the descending portion of the duodenum. Scar Resendez MD Abdomen/Pelvis CT 03/08/16 0000 Signed Impressions: Service Date/Time: Tuesday, March 08, 2016 15:28 - CONCLUSION: Severe changes of pancreatitis, potentially with areas of hemorrhagic conversion. Darrian Engel MD GI Procedure 03/05/16 0000 Signed Impressions: Service Date/Time: Friday, March 04, 2016 23:02 - CONCLUSION: ERCP as above. Vidal Ye MD Gall Bladder Ultrasound 03/04/16 0000 Signed Impressions: Service Date/Time: Friday, March 04, 2016 19:36 - CONCLUSION: 1. Thick-walled gallbladder with some pericholecystic fluid and multiple gallstones in the region of the neck. The findings are suggestive of acute cholecystitis. Clinical correlation is recommended. 2. Fatty liver. 3. Minimal ascites within Polanco's pouch. 4. Poor visualization of the pancreas due to shadowing bowel gas. Odilon Butler MD Cholangiopancreatography MRI 03/04/16 0000 Signed Impressions: Service Date/Time: Friday, March 04, 2016 18:24 - CONCLUSION: 1. Extensive edema throughout the retroperitoneum and pancreas. No abscess or pseudocyst. 2. Tiny layering gallstones within the gallbladder. No discrete common bile duct stone. There is tapering of the common bile duct within the pancreatic head felt to be secondary to the edema within the pancreas. No discrete mass or choledocholithiasis. No intrahepatic or extrahepatic ductal dilatation. Maxwell Hsu Jr., MD Date of Insertion: Mar 22, 2016 Line: PICC Side: Left Location: Antecubital A/P Problem List: (1) Severe sepsis with acute organ dysfunction Status: Acute Plan: - Pt admitted with sudden onset of abd pain, nausea/vomiting on 03/04/16 - LFTs were elevated at TBili 4.0, AST 472, ALT 378, AlkPhos 154 with Lipase of 7635 - Also noted to have an elevated Lactic acid of 4.5 and was admitted to ICU - MRCP (03/04) --> Extensive edema throughout the retroperitoneum and pancreas. No abscess or pseudocyst. Tiny layering gallstones within the gallbladder. No discrete common bile duct stone. There is tapering of the common bile duct within the pancreatic head felt to be secondary to the edema within the pancreas. No discrete mass or choledocholithiasis. No intrahepatic or extrahepatic ductal dilatation. - GB US (03/04) --> Thick-walled gallbladder with some pericholecystic fluid and multiple gallstones in the region of the neck. The findings are suggestive of acute cholecystitis. Fatty liver. Minimal ascites within Polanco's pouch. - Pt was seen by GI and underwent ERCP with stent placement in the CBD on - repeat CT Abd/pelvis (03/08/16) severe pancreatitis, potentially with areas of hemorrhagic conversion. -CT abdomen and pelvis 03/15 appears to be less pneumatosis intestinalis in the ascending colon/noted and likely colonic ileus admitted with cholangitis. 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 seems to correct to over 13. ?prim. hyperparathyroidism encephalopathy. could be metabolic related to na/ca anasarca. 20 kg weight gain since admission hypokalemia related to diuretic cont tube feeding. increase as not taking po. lower free flush added gentle d5w and lasix.increase lasix and kcl pamidronate as ca corrects to 13.1 and pt with encephalopathy recheck na and ca level and monitor for cognitive improvement PT daily dvt prophylaxis cont abx per ID...length of rx to be decided by Dr Ayers laxatives and reglan stopped cont ppi discussed with nursing and charge nurse. mental status is same for quite some time. no acute change today. discussed with brother at bedside. gaurded prognosis. (2) Pancreatitis, acute Status: Acute Plan: - See above. (3) Cholangitis Status: Acute Plan: - See above (4) Ventricular tachycardia (paroxysmal) Status: Acute Plan: - Cardiology consulted on 03/08 due to pt having a two runs of ventricular tachycardia on 03/07 which was felt to be secondary to her acute illness. - Pt was started on Metoprolol 50mg Q12H - No further issues with dysrhythmia noted - 2D echo (03/08) - Estimated EF 55-60% - Mild tricuspid regurgitation - PA peak pressure 39mmHg (5) HTN (hypertension) Status: Chronic Plan: - Cont. Metoprolol 50mg BID - Cont. Lisinopril 10mg BID (6) Renal insufficiency Status: Acute Plan: -see above Problem Qualifiers (1) Pancreatitis, acute: Saleem Rolon MD Apr 02, 2016 10:30
[2016-04-02] MEDS ORDERED: PAMIDRONATE INJ 60 MG in SODIUM CHLORID 0.9% 500 ML INJ 500 ML IV ONE (12:00)
[2016-04-02] MEDS: WATER IV SCH ×2 (12:46)
[2016-04-02] MEDS: DEXTROSE 5% IV SCH ×2 (12:46)
[2016-04-02] MEDS: MICAFUNGIN IV SCH ×2 (12:46)
--- NOTE | 2016-04-02 19:33 | HHI.GIFU ---
Subjective Remarks Appears to be comfortable in bed nonverbal in no acute distress Objective Vitals I&O Vital Signs Date Time Temp Pulse Resp B/P Pulse Ox O2 Delivery O2 Flow Rate FiO2 04/02/16 18:00 63 04/02/16 16:00 82 04/02/16 16:00 98.4 82 25 145/67 95 04/02/16 14:00 75 04/02/16 13:55 96 Nasal Cannula 3.00 04/02/16 12:00 90 04/02/16 12:00 98.8 89 23 168/77 96 04/02/16 10:00 80 04/02/16 08:00 98.7 80 27 120/58 96 04/02/16 08:00 80 04/02/16 07:00 100 Nasal Cannula 3.00 04/02/16 06:00 65 04/02/16 04:00 84 04/02/16 04:00 98.7 84 30 131/69 97 04/02/16 02:00 80 04/02/16 00:00 97.6 79 27 126/62 98 04/02/16 00:00 74 04/01/16 22:00 76 04/01/16 20:00 92 04/01/16 20:00 98.0 92 28 165/71 95 I/O 04/01/16 04/01/16 04/01/16 04/02/16 04/02/16 04/02/16 07:00 15:00 23:00 07:00 15:00 23:00 Intake Total 1183 ml 577 ml 870 ml 902 ml 1084 ml Output Total 350 ml 650 ml 1350 ml 325 ml 1225 ml Balance 833 ml -73 ml -480 ml 577 ml -141 ml Intake Oral 0 ml IV Total 398 ml 327 ml 382 ml 438 ml 528 ml Tube Feeding 285 ml 188 ml 314 ml 356 ml Other 500 ml 250 ml 300 ml 150 ml 200 ml Output Urine Total 350 ml 650 ml 1350 ml 325 ml 1225 ml Gastric Drainage Total 0 ml # Bowel Movements 1 0 1 1 Laboratory Laboratory Tests Test 04/02/16 04/02/16 04:39 17:53 White Blood Count 7.5 Red Blood Count 3.09 Hemoglobin 8.4 Hematocrit 27.0 Mean Corpuscular Volume 87.5 Mean Corpuscular Hemoglobin 27.1 Mean Corpuscular Hemoglobin 31.0 Concent Red Cell Distribution Width 16.8 Platelet Count 264 Mean Platelet Volume 10.4 Sodium Level 147 Potassium Level 4.2 4.6 Chloride Level 108 Carbon Dioxide Level 34.4 Anion Gap 5 Blood Urea Nitrogen 19 Creatinine 0.56 Estimat Glomerular Filtration 131 Rate Random Glucose 161 Calcium Level 11.5 Total Bilirubin 0.4 Aspartate Amino Transf 22 (AST/SGOT) Alanine Aminotransferase 24 (ALT/SGPT) Alkaline Phosphatase 133 Total Protein 7.6 Albumin 1.9 Lipase 84 Imaging Last 48 hours Impressions Chest X-Ray 04/01/16 0000 Signed Impressions: Service Date/Time: Friday, April 01, 2016 09:58 - CONCLUSION: Persistent perihilar vascular congestion with small lung volumes. Thai Reno MD Abdomen X-Ray 04/01/16 0000 Signed Impressions: Service Date/Time: Friday, April 01, 2016 10:02 - CONCLUSION: No evidence of obstruction. A feeding tube is in place. Its tip is in the distal stomach and a likely advanced into the duodenum if advanced further Thai Reno MD Physical Exam NECK: Neck is supple, no JVD, no lymphadenopathy. CHEST: ,tachypneic, labored CARDIAC: RRR ABDOMEN: Soft, distended, diffuse tenderness, hypoactive bowel sounds. EXTREMITIES: Generalized edema. SKIN: Lethargic, non verbal Assessment and Plan Plan ASSESSMENT: - Severe acute gallstone pancreatitis. S/P ERCP (03/04/16)-----> stricture in the distal common bile duct, normal intrahepatic ducts, normal pancreatic ducts , patent cystic duct. S/P stent placement. Dobhoff, but clamped. Triglycerides 117. IgG [address] scan 03/15 with diffuse inflammatory changes surrounding the entire pancreas characteristic of pancreatitis. No new or significant changes are demonstrated compared to the prior study. Improving. WBC improving. TPN off. Has puree diet but has poor po intake. Getting TF at hs. - Severe diffuse ileus. RESOLVED. Currently on Reglan, Senokot, Colace. + BM. - Biliary obstruction/cholangitis secondary to pancreatic head edema. S/P ERCP (03/04/16)-----> stricture in the distal common bile duct, normal intrahepatic ducts, normal pancreatic ducts, patent cystic duct. S/P stent placement. LFTs are stable. - Acute cholecystitis. S/P GS evaluation. - Acute sepsis, Leukocytosis. Abx per ID. Improving. - Acute renal failure. Resolved. Off HD. - Resp. Insuff. Resp. shallow/tachypneic. Diminished breath sounds. - Anemia. H/H 8.2/.4. 04/01/16 she wasn't able to eat by mouth, she would hold the food in her mouth, so she has been only TF. She is having liquid stools, negative for C-diff. Recommendations - Puree diet with nectar thickened liquids per recommendations, but not able to tolerate, - Cont. TF - Abx per ID - Supportive care - Further recommendations to follow Rob Kraft MD Apr 02, 2016 19:33
[2016-04-03] VITALS (15 sets, daily range): BP systolic 125–171; BP diastolic 60–85; PULSE 74–98; RESP 21–29; TEMP 97.9–99.5; O2SAT 93–99
[2016-04-03] MEDS: MEROPENEM INJ 1,000 MG in SODIUM CHLORIDE 0.9% INJ 100 ML IV SCH ×3 (02:00→17:46)
[2016-04-03] MEDS: FREE WATER G-TUBE SCH ×6 (04:00→20:00)
[2016-04-03] MEDS: INSULIN NovoLIN REGULAR SUPPLEMENTAL SCALE SQ SCH ×6 (04:00→20:00)
[2016-04-03] MEDS: CHLORHEXIDINE GLUCONATE 2 % 1 PACK (2 CLOTHS) TOP SCH (04:00)
[2016-04-03] MEDS: hydrALAZINE HCL 10 MG TAB PO SCH ×3 (05:09→20:37)
[2016-04-03] MEDS: ISOSORBIDE DINITRATE 10 MG TAB PO SCH ×3 (05:09→20:37)
[2016-04-03] MEDS: METOPROLOL TARTRATE 50 MG TAB PO SCH ×3 (05:09→20:37)
[2016-04-03] MEDS: HEPARIN SODIUM - SQ 10,000 UNITS/ML VIAL SQ SCH ×3 (05:09→20:38)
[2016-04-03 05:21] LABS: MAGNESIUM 1.5 MG/DL (1.5-2.5); POTASSIUM 4.1 MEQ/L (3.5-5.1)
[2016-04-03 05:37] LABS: CALCIUM-PROTEIN CORRECTED 11.4 MG/DL (8.5-10.1)
[2016-04-03] MEDS: PANTOPRAZOLE SODIUM 40 MG VIAL IV SCH (08:37)
[2016-04-03] MEDS: SODIUM CHLORIDE 0.9% FLUSH 5 ML FLUSH IV FLUSH SCH ×2 (08:37→20:38)
[2016-04-03] MEDS: FUROSEMIDE 40 MG/4 ML VIAL IV PUSH SCH ×2 (08:37→17:46)
[2016-04-03] MEDS: POTASSIUM CL 40 MEQ/30 ML LIQ UDC PO SCH ×2 (08:37→20:37)
[2016-04-03] MEDS: DOCUSATE SODIUM 100 MG CAP PO SCH ×2 (08:38→20:38)
[2016-04-03] MEDS: SODIUM CHLORIDE 0.9% FLUSH 5 ML FLUSH IVF SCH (08:38)
[2016-04-03] MEDS: DEXTROSE 5% IN WATE 1000ML INJ 1,000 ML IV SCH (09:50)
--- NOTE | 2016-04-03 10:16 | HHI.GIFU ---
Subjective Remarks Patient is resting in bed, brother be bed side, patient remains lethargic, nonverbal, tolerating TF okay, having loose stools, no bleeding, no nausea, no vomiting or abd pain. (Otis Barreto) Objective Vitals I&O Vital Signs Date Time Temp Pulse Resp B/P Pulse Ox O2 Delivery O2 Flow Rate FiO2 04/03/16 06:00 94 04/03/16 04:00 98.5 88 28 164/74 93 04/03/16 04:00 88 04/03/16 02:38 93 Nasal Cannula 3.00 04/03/16 02:00 80 04/03/16 00:00 98.5 78 21 125/85 96 04/03/16 00:00 78 04/02/16 22:00 108 04/02/16 21:01 96 Nasal Cannula 3.00 04/02/16 20:00 99.0 90 33 160/71 91 04/02/16 20:00 90 04/02/16 19:00 95 Nasal Cannula 3.00 04/02/16 18:00 63 04/02/16 16:00 82 04/02/16 16:00 98.4 82 25 145/67 95 04/02/16 14:00 75 04/02/16 13:55 96 Nasal Cannula 3.00 04/02/16 12:00 90 04/02/16 12:00 98.8 89 23 168/77 96 I/O 04/02/16 04/02/16 04/02/16 04/03/16 04/03/16 04/03/16 07:00 15:00 23:00 07:00 15:00 23:00 Intake Total 902 ml 1084 ml 986 ml 808 ml Output Total 325 ml 1225 ml 2450 ml 550 ml Balance 577 ml -141 ml -1464 ml 258 ml IV Total 438 ml 528 ml 647 ml 448 ml Tube Feeding 314 ml 356 ml 239 ml 260 ml Other 150 ml 200 ml 100 ml 100 ml Output Urine Total 325 ml 1225 ml 2450 ml 550 ml # Bowel Movements 1 2 2 Laboratory Laboratory Tests Test 04/02/16 04/03/16 17:53 04:22 Potassium Level 4.6 4.1 Sodium Level 146 Chloride Level 107 Carbon Dioxide Level 35.0 Anion Gap 4 Blood Urea Nitrogen 20 Creatinine 0.53 Estimat Glomerular Filtration 140 Rate Random Glucose 145 Calcium Level 11.6 Protein Corrected Calcium 11.4 Magnesium Level 1.5 Total Protein 7.5 Imaging Last Impressions Chest X-Ray 04/01/16 0000 Signed Impressions: Service Date/Time: Friday, April 01, 2016 09:58 - CONCLUSION: Persistent perihilar vascular congestion with small lung volumes. Thai Reno MD Abdomen X-Ray 04/01/16 0000 Signed Impressions: Service Date/Time: Friday, April 01, 2016 10:02 - CONCLUSION: No evidence of obstruction. A feeding tube is in place. Its tip is in the distal stomach and a likely advanced into the duodenum if advanced further Thai Reno MD Lower Extremity Ultrasound 03/20/16 0000 Signed Impressions: Service Date/Time: Sunday, March 20, 2016 14:32 - CONCLUSION: No DVT of either lower extremity. Darrian Leary MD Abdomen/Pelvis CT 03/15/16 0000 Signed Impressions: Service Date/Time: Tuesday, March 15, 2016 15:26 - CONCLUSION: 1. Compared to the prior exam, the previously noted gas bubbles in the wall of the cecum have resolved. 2. Otherwise, no other new or significant changes compared to the prior study. Wilver Bond MD Head CT 03/14/16 0000 Signed Impressions: Service Date/Time: Monday, March 14, 2016 16:13 - CONCLUSION: Normal examination. Jere Toro MD Renal Ultrasound 03/13/16 0000 Signed Impressions: Service Date/Time: Sunday, March 13, 2016 16:39 - CONCLUSION: Unremarkable renal ultrasound. K. Stephen Lundy MD GI Procedure 03/05/16 0000 Signed Impressions: Service Date/Time: Friday, March 04, 2016 23:02 - CONCLUSION: ERCP as above. Vidal Ye MD Gall Bladder Ultrasound 03/04/16 0000 Signed Impressions: Service Date/Time: Friday, March 04, 2016 19:36 - CONCLUSION: 1. Thick-walled gallbladder with some pericholecystic fluid and multiple gallstones in the region of the neck. The findings are suggestive of acute cholecystitis. Clinical correlation is recommended. 2. Fatty liver. 3. Minimal ascites within Polanco's pouch. 4. Poor visualization of the pancreas due to shadowing bowel gas. Odilon Butler MD Cholangiopancreatography MRI 03/04/16 0000 Signed Impressions: Service Date/Time: Friday, March 04, 2016 18:24 - CONCLUSION: 1. Extensive edema throughout the retroperitoneum and pancreas. No abscess or pseudocyst. 2. Tiny layering gallstones within the gallbladder. No discrete common bile duct stone. There is tapering of the common bile duct within the pancreatic head felt to be secondary to the edema within the pancreas. No discrete mass or choledocholithiasis. No intrahepatic or extrahepatic ductal dilatation. Maxwell Hsu Jr., MD Physical Exam NECK: Neck is supple, no JVD, no lymphadenopathy. CHEST: ,tachypneic, labored CARDIAC: RRR ABDOMEN: Soft, distended, diffuse tenderness, hypoactive bowel sounds. EXTREMITIES: Generalized edema. SKIN: Lethargic, non verbal (Ne[employer]up[employer] A[employer]) Assessment and Plan Plan ASSESSMENT: - Severe acute gallstone pancreatitis. S/P ERCP (03/04/16)-----> stricture in the distal common bile duct, normal intrahepatic ducts, normal pancreatic ducts , patent cystic duct. S/P stent placement. Dobhoff, but clamped. Triglycerides 117. IgG [address] scan 03/15 with diffuse inflammatory changes surrounding the entire pancreas characteristic of pancreatitis. No new or significant changes are demonstrated compared to the prior study. Improving. WBC improving. TPN off. Has puree diet but has poor po intake. Getting TF at hs. - Severe diffuse ileus. RESOLVED. Currently on Reglan, Senokot, Colace. + BM. - Biliary obstruction/cholangitis secondary to pancreatic head edema. S/P ERCP (03/04/16)-----> stricture in the distal common bile duct, normal intrahepatic ducts, normal pancreatic ducts, patent cystic duct. S/P stent placement. LFTs are stable. - Acute cholecystitis. S/P GS evaluation. - Acute sepsis, Leukocytosis. Abx per ID. Improving. - Acute renal failure. Resolved. Off HD. - Resp. Insuff. Resp. shallow/tachypneic. Diminished breath sounds. - Anemia. H/H 8.2/26.4. 04/01/16 she wasn't able to eat by mouth, she would hold the food in her mouth, so she has been only TF. She is having liquid stools, negative for C-diff. 04/03/16- patient remains lethargic, nonverbal, tolerating TF okay, having loose stools, no bleeding, no nausea, no vomiting or abd pain. Hgb stable 8.4, WBC normal, lipase normal Recommendations - Puree diet with nectar thickened liquids per recommendations, but not able to tolerate, - Cont. TF - Abx per ID - S/P GS eval - Supportive care - Poor prognosis - Patient seen and examined by Dr. Lucero and myself and this note is written on his behalf. (Otis Barreto) Physician Comments Seen and examined in the presence of family. S/p ercp and stent placement for biliary pancreatitis. GS on case for possible cholecystitis. Low fat diet as tolerated. (Oscar Lucero MD) Otis Barreto Apr 03, 2016 10:16 Oscar Lucero MD Apr 03, 2016 14:21
[2016-04-03] MEDS: WATER IV SCH ×2 (11:46)
[2016-04-03] MEDS: DEXTROSE 5% IV SCH ×2 (11:46)
[2016-04-03] MEDS: MICAFUNGIN IV SCH ×2 (11:46)
--- NOTE | 2016-04-03 18:16 | HHI.PR ---
Subjective Remarks No new complaints. Objective Vitals Vital Signs Date Time Temp Pulse Resp B/P Pulse Ox O2 Delivery O2 Flow Rate FiO2 04/03/16 18:00 81 04/03/16 16:00 99.0 82 25 129/60 97 04/03/16 16:00 82 04/03/16 14:00 91 04/03/16 12:00 88 04/03/16 12:00 99.5 88 29 125/64 99 04/03/16 10:58 96 Nasal Cannula 3.00 04/03/16 10:00 86 04/03/16 08:00 96 04/03/16 08:00 99.2 96 27 157/67 95 04/03/16 07:00 96 Nasal Cannula 3.00 04/03/16 06:00 94 04/03/16 04:00 98.5 88 28 164/74 93 04/03/16 04:00 88 04/03/16 02:38 93 Nasal Cannula 3.00 04/03/16 02:00 80 04/03/16 00:00 98.5 78 21 125/85 96 04/03/16 00:00 78 04/02/16 22:00 108 04/02/16 21:01 96 Nasal Cannula 3.00 04/02/16 20:00 99.0 90 33 160/71 91 04/02/16 20:00 90 04/02/16 19:00 95 Nasal Cannula 3.00 04/02/16 04/02/16 04/03/16 15:00 23:00 07:00 Intake Total 1084 ml 986 ml 808 ml Output Total 1225 ml 2450 ml 550 ml Balance -141 ml -1464 ml 258 ml IV Total 528 ml 647 ml 448 ml Tube Feeding 356 ml 239 ml 260 ml Other 200 ml 100 ml 100 ml Output Urine Total 1225 ml 2450 ml 550 ml # Bowel Movements 2 2 Result Diagram: 04/02/16 0439 04/03/16 0422 Imaging Last Impressions Chest X-Ray 03/09/16 0000 Signed Impressions: Service Date/Time: February 13:11 - CONCLUSION: Left lower lobe atelectasis versus infiltrate is unchanged. Maxwell Hsu Jr., MD Abdomen X-Ray 03/09/16 0000 Signed Impressions: Service Date/Time: February 11:11 - CONCLUSION: 1. The tip of the weighted feeding tube is located in the descending portion of the duodenum. Scar Resendez MD Abdomen/Pelvis CT 03/08/16 0000 Signed Impressions: Service Date/Time: Tuesday, March 08, 2016 15:28 - CONCLUSION: Severe changes of pancreatitis, potentially with areas of hemorrhagic conversion. Darrian Engel MD GI Procedure 03/05/16 0000 Signed Impressions: Service Date/Time: Friday, March 04, 2016 23:02 - CONCLUSION: ERCP as above. Vidal Ye MD Gall Bladder Ultrasound 03/04/16 0000 Signed Impressions: Service Date/Time: Friday, March 04, 2016 19:36 - CONCLUSION: 1. Thick-walled gallbladder with some pericholecystic fluid and multiple gallstones in the region of the neck. The findings are suggestive of acute cholecystitis. Clinical correlation is recommended. 2. Fatty liver. 3. Minimal ascites within Polanco's pouch. 4. Poor visualization of the pancreas due to shadowing bowel gas. Odilon Butler MD Cholangiopancreatography MRI 03/04/16 0000 Signed Impressions: Service Date/Time: Friday, March 04, 2016 18:24 - CONCLUSION: 1. Extensive edema throughout the retroperitoneum and pancreas. No abscess or pseudocyst. 2. Tiny layering gallstones within the gallbladder. No discrete common bile duct stone. There is tapering of the common bile duct within the pancreatic head felt to be secondary to the edema within the pancreas. No discrete mass or choledocholithiasis. No intrahepatic or extrahepatic ductal dilatation. Maxwell Hsu Jr., MD Objective Remarks GENERAL: This is a well-nourished, well-developed patient, in no apparent distress. CARDIOVASCULAR: Regular rate and rhythm without murmurs, gallops, or rubs. RESPIRATORY: Clear to auscultation. Breath sounds equal bilaterally. No wheezes , rales, or rhonchi. GASTROINTESTINAL: Abdomen soft, non-tender, nondistended. Normal active bowel sounds MUSCULOSKELETAL: Extremities without clubbing, cyanosis, or edema. NEURO: Alert & Oriented x4 to person, place, time, situation. Moves all ext x4 Date of Insertion: Mar 22, 2016 Line: PICC Side: Left Location: Antecubital A/P Problem List: (1) Severe sepsis with acute organ dysfunction Status: Acute Plan: - Pt admitted with sudden onset of abd pain, nausea/vomiting on 03/04/16 - LFTs were elevated at TBili 4.0, AST 472, ALT 378, AlkPhos 154 with Lipase of 7635 - Also noted to have an elevated Lactic acid of 4.5 and was admitted to ICU - MRCP (03/04) --> Extensive edema throughout the retroperitoneum and pancreas. No abscess or pseudocyst. Tiny layering gallstones within the gallbladder. No discrete common bile duct stone. There is tapering of the common bile duct within the pancreatic head felt to be secondary to the edema within the pancreas. No discrete mass or choledocholithiasis. No intrahepatic or extrahepatic ductal dilatation. - GB US (03/04) --> Thick-walled gallbladder with some pericholecystic fluid and multiple gallstones in the region of the neck. The findings are suggestive of acute cholecystitis. Fatty liver. Minimal ascites within Polanco's pouch. - Pt was seen by GI and underwent ERCP with stent placement in the CBD on - repeat CT Abd/pelvis (03/08/16) severe pancreatitis, potentially with areas of hemorrhagic conversion. -CT abdomen and pelvis 03/15 appears to be less pneumatosis intestinalis in the ascending colon/noted and likely colonic ileus admitted with cholangitis. 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 seems to correct to over 13. ?prim. hyperparathyroidism encephalopathy. could be metabolic related to na/ca anasarca. 20 kg weight gain since admission hypokalemia related to diuretic cont tube feeding. increase as not taking po. lower free flush added gentle d5w and lasix.increase lasix and kcl pamidronate as ca corrects to 13.1 and pt with encephalopathy recheck na and ca level and monitor for cognitive improvement PT daily dvt prophylaxis cont abx per ID...length of rx to be decided by Dr Ayers laxatives and reglan stopped cont ppi discussed with nursing and charge nurse. mental status is same for quite some time. no acute change today. discussed with brother at bedside. gaurded prognosis. 04/03/16 - no change in clinical status - poor prognosis - consult palliative medicine for clarification of goals - pt with hypercalcemia. Pt received bisphosphonate yesterday 04/02. Repeat BMP/ calcium level in AM (2) Pancreatitis, acute Status: Acute Plan: - See above. (3) Cholangitis Status: Acute Plan: - See above (4) Ventricular tachycardia (paroxysmal) Status: Acute Plan: - Cardiology consulted on 03/08 due to pt having a two runs of ventricular tachycardia on 03/07 which was felt to be secondary to her acute illness. - Pt was started on Metoprolol 50mg Q12H - No further issues with dysrhythmia noted - 2D echo (03/08) - Estimated EF 55-60% - Mild tricuspid regurgitation - PA peak pressure 39mmHg (5) HTN (hypertension) Status: Chronic Plan: - Cont. Metoprolol 50mg BID - Cont. Lisinopril 10mg BID (6) Renal insufficiency Status: Acute Plan: -see above Problem Qualifiers (1) Pancreatitis, acute: Yandel Stewart DO Apr 03, 2016 18:16
[2016-04-03] MEDS: ACETAMINOPHEN/HYDROcodone 325 MG/5 MG TAB PO PRN (20:38)
[2016-04-04] VITALS (14 sets, daily range): BP systolic 125–171; BP diastolic 60–80; PULSE 80–94; RESP 22–30; TEMP 98.3–99.5; O2SAT 95–98
[2016-04-04] MEDS: FREE WATER G-TUBE SCH ×7 (00:41→23:22)
[2016-04-04] MEDS: INSULIN NovoLIN REGULAR SUPPLEMENTAL SCALE SQ SCH ×7 (00:41→23:37)
[2016-04-04] MEDS: MEROPENEM INJ 1,000 MG in SODIUM CHLORIDE 0.9% INJ 100 ML IV SCH ×3 (01:35→18:51)
[2016-04-04] MEDS: CHLORHEXIDINE GLUCONATE 2 % 1 PACK (2 CLOTHS) TOP SCH (04:00)
[2016-04-04 04:42] LABS: AUTOMATED NEUTROPHIL # 5.1 TH/MM3 (1.8-7.7); BASOPHIL % 0.4 % (0.0-2.0); EOSINOPHIL # 0.1 TH/MM3 (0-0.4); HEMATOCRIT 25.7 % (35.0-46.0); HEMO FLAGS DIFF FINAL; LYMPH % 25.6 % (9.0-44.0); LYMPHOCYTE # 2.3 TH/MM3 (1.0-4.8); MEAN CELL VOLUME 87.8 FL (80.0-100.0); MEAN CORPUSCULAR HEMOGLOBIN 27.2 PG (27.0-34.0); MONO % 16.4 % (0.0-8.0); NEUT % 56.6 % (16.0-70.0); PLATELET COUNT 260 TH/MM3 (150-450); RED BLOOD COUNT 2.93 MIL/MM3 (4.00-5.30)
[2016-04-04] MEDS: ISOSORBIDE DINITRATE 10 MG TAB PO SCH ×3 (05:11→21:24)
[2016-04-04] MEDS: hydrALAZINE HCL 10 MG TAB PO SCH ×3 (05:11→21:24)
[2016-04-04] MEDS: HEPARIN SODIUM - SQ 10,000 UNITS/ML VIAL SQ SCH ×3 (05:12→21:24)
[2016-04-04] MEDS: METOPROLOL TARTRATE 50 MG TAB PO SCH ×3 (05:12→21:24)
[2016-04-04 05:18] LABS: BICARBONATE 37.6 MEQ/L (21.0-32.0); MAGNESIUM 1.6 MG/DL (1.5-2.5); POTASSIUM 3.6 MEQ/L (3.5-5.1)
[2016-04-04] MEDS: DOCUSATE SODIUM 100 MG CAP PO SCH ×2 (09:00→21:23)
[2016-04-04] MEDS: SODIUM CHLORIDE 0.9% FLUSH 5 ML FLUSH IV FLUSH SCH ×2 (09:00→21:23)
[2016-04-04] MEDS: PANTOPRAZOLE SODIUM 40 MG VIAL IV SCH (09:50)
[2016-04-04] MEDS: FUROSEMIDE 40 MG/4 ML VIAL IV PUSH SCH ×2 (09:51→18:51)
[2016-04-04] MEDS: SODIUM CHLORIDE 0.9% FLUSH 5 ML FLUSH IVF SCH (09:51)
[2016-04-04] MEDS: POTASSIUM CL 40 MEQ/30 ML LIQ UDC PO SCH ×2 (09:52→21:23)
[2016-04-04] MEDS: DEXTROSE 5% IN WATE 1000ML INJ 1,000 ML IV SCH (10:42)
[2016-04-04] MEDS: WATER IV SCH ×2 (10:42)
[2016-04-04] MEDS: DEXTROSE 5% IV SCH ×2 (10:42)
[2016-04-04] MEDS: MICAFUNGIN IV SCH ×2 (10:42)
--- NOTE | 2016-04-04 12:00 | HHI.GIFU ---
Subjective Remarks Patient continue to be ill, not taking any PO, tolerating TF okay, not very verbal, no nausea or vomiting or abdominal pain. Lots of thick secretions per nurse (Otis Barreto) Objective Vitals I&O Vital Signs Date Time Temp Pulse Resp B/P Pulse Ox O2 Delivery O2 Flow Rate FiO2 04/04/16 06:00 86 04/04/16 04:00 98.8 86 26 144/68 97 04/04/16 04:00 86 04/04/16 02:00 80 04/04/16 00:00 82 04/04/16 00:00 99.5 82 22 125/60 96 04/03/16 22:00 74 04/03/16 20:24 95 Nasal Cannula 4.00 04/03/16 20:00 97 Nasal Cannula 3.00 04/03/16 20:00 97.9 98 23 171/76 93 04/03/16 20:00 98 04/03/16 19:00 95 Nasal Cannula 3.00 04/03/16 18:00 81 04/03/16 16:00 99.0 82 25 129/60 97 04/03/16 16:00 82 04/03/16 14:00 91 04/03/16 12:00 88 04/03/16 12:00 99.5 88 29 125/64 99 I/O 04/03/16 04/03/16 04/03/16 04/04/16 04/04/16 04/04/16 07:00 15:00 23:00 07:00 15:00 23:00 Intake Total 808 ml 898 ml 765 ml 933 ml Output Total 550 ml 1800 ml 1025 ml 350 ml Balance 258 ml -902 ml -260 ml 583 ml IV Total 448 ml 482 ml 392 ml 485 ml Tube Feeding 260 ml 316 ml 273 ml 348 ml Other 100 ml 100 ml 100 ml 100 ml Output Urine Total 550 ml 1800 ml 1025 ml 350 ml # Bowel Movements 2 1 3 0 Laboratory Laboratory Tests Test 04/04/16 04:35 White Blood Count 9.0 Red Blood Count 2.93 Hemoglobin 7.9 Hematocrit 25.7 Mean Corpuscular Volume 87.8 Mean Corpuscular Hemoglobin 27.2 Mean Corpuscular Hemoglobin 31.0 Concent Red Cell Distribution Width 16.0 Platelet Count 260 Mean Platelet Volume 9.6 Neutrophils (%) (Auto) 56.6 Lymphocytes (%) (Auto) 25.6 Monocytes (%) (Auto) 16.4 Eosinophils (%) (Auto) 1.0 Basophils (%) (Auto) 0.4 Neutrophils # (Auto) 5.1 Lymphocytes # (Auto) 2.3 Monocytes # (Auto) 1.5 Eosinophils # (Auto) 0.1 Basophils # (Auto) 0.0 CBC Comment DIFF FINAL Differential Comment Sodium Level 144 Potassium Level 3.6 Chloride Level 102 Carbon Dioxide Level 37.6 Anion Gap 4 Blood Urea Nitrogen 21 Creatinine 0.56 Estimat Glomerular Filtration 131 Rate Random Glucose 257 Calcium Level 10.8 Magnesium Level 1.6 Imaging Last Impressions Chest X-Ray 04/01/16 0000 Signed Impressions: Service Date/Time: Friday, April 01, 2016 09:58 - CONCLUSION: Persistent perihilar vascular congestion with small lung volumes. Thai Reno MD Abdomen X-Ray 04/01/16 0000 Signed Impressions: Service Date/Time: Friday, April 01, 2016 10:02 - CONCLUSION: No evidence of obstruction. A feeding tube is in place. Its tip is in the distal stomach and a likely advanced into the duodenum if advanced further Thai Reno MD Lower Extremity Ultrasound 03/20/16 0000 Signed Impressions: Service Date/Time: Sunday, March 20, 2016 14:32 - CONCLUSION: No DVT of either lower extremity. Darrian Leary MD Abdomen/Pelvis CT 03/15/16 0000 Signed Impressions: Service Date/Time: Tuesday, March 15, 2016 15:26 - CONCLUSION: 1. Compared to the prior exam, the previously noted gas bubbles in the wall of the cecum have resolved. 2. Otherwise, no other new or significant changes compared to the prior study. Wilver Bond MD Head CT 03/14/16 0000 Signed Impressions: Service Date/Time: Monday, March 14, 2016 16:13 - CONCLUSION: Normal examination. Jere Troo MD Renal Ultrasound 03/13/16 0000 Signed Impressions: Service Date/Time: Sunday, March 13, 2016 16:39 - CONCLUSION: Unremarkable renal ultrasound. Abisai Lundy MD GI Procedure 03/05/16 0000 Signed Impressions: Service Date/Time: Friday, March 04, 2016 23:02 - CONCLUSION: ERCP as above. Vidal Ye MD Gall Bladder Ultrasound 03/04/16 0000 Signed Impressions: Service Date/Time: Friday, March 04, 2016 19:36 - CONCLUSION: 1. Thick-walled gallbladder with some pericholecystic fluid and multiple gallstones in the region of the neck. The findings are suggestive of acute cholecystitis. Clinical correlation is recommended. 2. Fatty liver. 3. Minimal ascites within Polanco's pouch. 4. Poor visualization of the pancreas due to shadowing bowel gas. Odilon Butler MD Cholangiopancreatography MRI 03/04/16 0000 Signed Impressions: Service Date/Time: Friday, March 04, 2016 18:24 - CONCLUSION: 1. Extensive edema throughout the retroperitoneum and pancreas. No abscess or pseudocyst. 2. Tiny layering gallstones within the gallbladder. No discrete common bile duct stone. There is tapering of the common bile duct within the pancreatic head felt to be secondary to the edema within the pancreas. No discrete mass or choledocholithiasis. No intrahepatic or extrahepatic ductal dilatation. Maxwell Hsu Jr., MD Physical Exam NECK: Neck is supple, no JVD, no lymphadenopathy. CHEST: ,tachypneic, labored CARDIAC: RRR ABDOMEN: Soft, distended, diffuse tenderness, hypoactive bowel sounds. EXTREMITIES: Generalized edema. SKIN: Lethargic, non verbal ([employer]) Assessment and Plan Plan ASSESSMENT: - Severe acute gallstone pancreatitis. S/P ERCP (03/04/16)-----> stricture in the distal common bile duct, normal intrahepatic ducts, normal pancreatic ducts , patent cystic duct. S/P stent placement. Dobhoff, but clamped. Triglycerides 117. IgG [address] scan 03/15 with diffuse inflammatory changes surrounding the entire pancreas characteristic of pancreatitis. No new or significant changes are demonstrated compared to the prior study. Improving. WBC improving. TPN off. Has puree diet but has poor po intake. Getting TF at hs. - Severe diffuse ileus. RESOLVED. Currently on Reglan, Senokot, Colace. + BM. - Biliary obstruction/cholangitis secondary to pancreatic head edema. S/P ERCP (03/04/16)-----> stricture in the distal common bile duct, normal intrahepatic ducts, normal pancreatic ducts, patent cystic duct. S/P stent placement. LFTs are stable. - Acute cholecystitis. S/P GS evaluation. - Acute sepsis, Leukocytosis. Resolved, Abx per ID. - Acute renal failure. Resolved. Off HD. - Resp. Insuff. Resp. shallow. Diminished breath sounds. - Anemia. H/H 8.2/26.4. 04/01/16 she wasn't able to eat by mouth, she would hold the food in her mouth, so she has been only TF. She is having liquid stools, negative for C-diff. 04/03/16- patient remains lethargic, nonverbal, tolerating TF okay, having loose stools, no bleeding, no nausea, no vomiting or abd pain. Hgb stable 8.4, WBC normal, lipase normal 04/04/16 patient continue to be ill, not taking any PO intake, lots of secretions per nurse, tolerating TF okay, no nausea or vomiting or abdominal pain, St therapy on the case Recommendations - Puree diet with nectar thickened liquids per recommendations, but not able to tolerate, - Cont ST - Cont. TF - Abx per ID - S/P GS eval - Supportive care - Poor prognosis - Patient seen and examined by Dr. Lucero and myself and this note is written on his behalf. (Otis Barreto) Physician Comments Seen and examined with IVONNE, slow improvement. Not tolerating po diet, on DBT feedings. Repeat CT abd ordered to follow up on pancreatitis. (Oscar Lucero MD) Otis Barreto Apr 04, 2016 11:59 Oscar Lucero MD Apr 04, 2016 12:30
--- NOTE | 2016-04-04 12:13 | PD.CONS ---
Consult Service Palliative Care . Consult Requested By Dr. Yandel Stewart . Primary Care Physician Vic Diaz DO . Reason for Consultation a. To assist with evaluation and management of symptoms including: pain; encephalopathy; dyspnea b. To assist medical decision maker(s) with: better understanding of current medical conditions; weighing benefits/burdens of medical treatment options; making medical treatment decisions. . HPI History of Present Illness Ms. Dalton is a 66-year-old female with a past medical history notable for breast cancer and hypertension who presented to the [facility] Emergency Department on 03/04/16 with a 1-2 day history of severe and unrelenting nausea/ vomiting. There was also abdominal pain/tenderness. She had been unable to keep anything down on the day of presentation. The patient denied fevers, chills, dysuria, or hematuria. She had had a loose stool the day prior to presentation. Vital signs in the emergency room revealed the following: Temperature 97.8; pulse 70; respiratory rate 14; blood pressure 204/90; pulse oximetry 96% on O2 at 2 L a minute. Initial examination by the emergency department provider showed the following: Patient was ill-appearing. Cardiovascular and respiratory exams were unremarkable. The abdomen was soft but diffusely tender to palpation. Tenderness was most pronounced in the upper abdomen but there was no rebound or guarding. The remainder of the exam was unremarkable. Initial diagnostic testing in the emergency department revealed the following: * Arterial blood gases showed pH 7.42; PCO2 35; PCO2 63; bicarbonate 23; base excess -1.1 on room air. * Urinalysis showed trace glucose; small occult blood; moderate bilirubin; 33 WBCs; rare bacteria; moderate mucus * CBC showed WBC 16.8; hemoglobin 14.5; platelets 246 * Coag profile showed PT 12.0; INR 1.1; PTT 24.3 * Serum chemistry panel showed sodium 138; potassium 3.1; chloride 100; CO2 25.4 ; anion gap 13; BUN 14; creatinine 1.2; glucose 207; lactic acid 4.5; calcium 10.5 * Liver function studies show total bilirubin 4.0; AST 472; ALT 378; alkaline phosphatase 154; total protein 8.5; albumin 3.7 * Lipase was 7635 * Troponin was less than 0.02 * Upright plain films revealed no free air in the abdomen. In the emergency department, differential diagnosis included perforated ulcer, cholecystitis, colitis, cholangitis, sepsis, and ischemic bowel. The patient was given 2 L of IV fluid. Cultures were obtained. She was empirically started on intravenous Zosyn. Gastroenterology was consulted and the GI physician ordered MRCP. Critical care was consulted for admission to the medical intensive care unit. Abdominal ultrasound showed a thick-walled gallbladder with some pericholecystic fluid and multiple gallstones in the region of the neck. The findings were felt to be suggestive of acute cholecystitis. The study also revealed a fatty liver and minimal ascites. MRCP showed extensive edema throughout the retroperitoneum and pancreas with no abscess or pseudocyst. The MRCP confirmed tiny layering gallstones within the gallbladde but no discrete common bile duct stone. The patient underwent ERCP. 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 There was good flow of bile following the procedure. The patient initially improved, but she had a persistent leukocytosis and began having low-grade elevated temperatures. The patient also developed some short runs of ventricular tachycardia. Repeat CT imaging on 03/08/16 showed severe changes of pancreatitis potentially with areas of hemorrhagic conversion. Cardiology consultation took place for the ventricular tachycardia and the patient was placed on beta blockers. An echocardiogram was ordered which was relatively normal. With some worsening of abdominal pain, decreased urine output, increasing creatinine, and an increasing white blood count, critical care was reconsulted and the patient was transferred back to the intensive care unit. Renal decompensation continued and the patient required hemodialysis beginning . She became more lethargic. TPN was initiated on 03/15/16. An insulin drip was started to control blood sugars. The patient continued to have elevated temperatures but showed other signs of improvement. She was transitioned from TPN to tube feedings. She was able to get out of bed to chair. Her white blood count stabilized. Hemodialysis was stopped. the patient , however, has declined again -- she is now quite lethargic and minimally interactive. Her picture has become one of severe pancreatitis. I have spoken at length with Drs. Stewart and Nic. Dr. Stewart is quite concerned given the patient's course , that the prognosis is poor and that the patient may not survive the hospitalization or might survive in a debilitated condition for which she will never be able to fully recover. Dr. Lucero felt that although her healing/recovery was taking longer than expected, that it was still quite possible that by providing good supportive care for a while longer she will be able to turn the corner and get better. . . Review of Systems Constitutional: COMPLAINS OF: Fatigue, Fever, Weight gain, Weight loss, Change in appetite, Pain, Generalized weakness Eyes: DENIES: Eye pain Ears, nose, mouth, throat: DENIES: Hearing loss, Oral lesions Respiratory: COMPLAINS OF: Shortness of breath, DENIES: Cough, Hemoptysis Cardiovascular: COMPLAINS OF: Dyspnea on Exertion, DENIES: Chest pain, Palpitations Gastrointestinal: COMPLAINS OF: Abdominal pain, Nausea, Vomiting, Difficulty Swallowing, Anorexia Integumentary: DENIES: Pruritus Neurologic: DENIES: Seizures, Tremor Psychiatric: COMPLAINS OF: Anxiety Past Family Social History Coded Allergies: No Known Allergies (Verified , 02/18/15) Past Medical History * Breast cancer * Hypertension . Past Surgical History * Bilateral mastectomy * Hysterectomy . Reported Medications Pre-hospitalization medications included the following: Letrozole 2.5 Mg Tab 1 Tab PO DAILY Lisinopril-Hctz 20-25 Mg Tab 1 Tab PO DAILY . Current Medications Medications (Trade) Dose Ordered Sig/Zonia Route Start Time Stop Time Status Last Admin (Protonix Inj) 40 mg DAILY IV 03/04/16 18:15 04/04/16 09:50 ([place] 5-325 Mg) 1 tab Q4H PRN PO 03/05/16 07:00 04/03/16 20:38 (NS Flush) 2 ml UNSCH PRN IV FLUSH 03/05/16 07:00 03/13/16 18:11 (NS Flush) 2 ml BID IV FLUSH 03/05/16 09:00 04/03/16 20:38 (Tylenol) 650 mg Q6H PRN PO 03/05/16 07:00 04/01/16 16:55 (Zofran Inj) 4 mg Q6H PRN IV 03/05/16 07:00 03/05/16 19:35 (Colace) 100 mg BID PO 03/05/16 09:00 04/02/16 08:10 Miscellaneous Information 1 Q361D XX 03/05/16 07:00 03/05/16 20:52 (Chlorhexidine 2% Cloth) Taper DAILY@04 TOP 03/06/16 04:00 03/02/17 03:59 04/03/16 04:00 (Chlorhexidine 2% Cloth) 3 pack UNSCH PRN TOP 03/05/16 07:00 (NS Flush) DAILY IVF 03/14/16 12:00 04/04/16 09:51 (NS Flush) UNSCH PRN IVF 03/14/16 12:00 Heparin Sodium (Porcine) 5000 units 5,000 units Q8HR SQ 03/20/16 07:15 04/04/16 05:12 Micafungin Sodium 150 mg/Dextrose 100 ml @ 100 mls/hr Q24H IV 03/20/16 11:00 04/04/16 10:42 (Merrem Inj/NS Inj) 100 ml @ 200 mls/hr Q8H IV 03/21/16 02:00 04/04/16 09:52 (D50w (Vial) Inj) 25 ml UNSCH PRN IV PUSH 03/20/16 21:30 03/23/16 23:40 (Glucagon Inj) 1 mg UNSCH PRN OTHER 03/20/16 21:30 (NovoLIN R SUPPLEMENTAL SCALE) 1 Q4HR SQ 03/21/16 00:00 04/04/16 08:00 (NS Flush) See Protocol DAILY IVF 03/24/16 09:00 04/04/16 09:51 (NS Flush) See Protocol UNSCH PRN IVF 03/23/16 12:00 (Heparin Central Flush) See Protocol DAILY IVF 03/24/16 09:00 04/04/16 09:51 (Heparin Central Flush) See Protocol UNSCH PRN IVF 03/23/16 12:00 03/27/16 05:26 (NS Flush) See Protocol UNSCH PRN IVF 03/23/16 12:00 (Isordil) 10 mg Q8HR PO 03/24/16 14:15 04/04/16 05:11 (Nitroglycerin 2% Oint) 2 inch Q6HR PRN TOPICAL 03/24/16 14:15 (Trandate Inj) 10 mg Q1HR PRN IV PUSH 03/24/16 14:15 04/01/16 19:08 (Apresoline Inj) 10 mg Q1HR PRN IV PUSH 03/24/16 14:15 04/01/16 17:05 (Lopressor) 50 mg Q8HR PO 03/26/16 22:00 04/04/16 05:12 Hydralazine HCl 10 mg 10 mg Q8HR PO 03/26/16 22:00 04/04/16 05:11 (D5W 1000 ml Inj) 1,000 ml @ 42 mls/hr [id number] IV 03/29/16 10:45 04/04/16 10:42 (Free Water) VOLUME OF WATER: ( 50) ML Q4HR G-TUBE 04/01/16 16:00 04/04/16 08:00 (Lasix Inj) 60 mg BID@09,18 IV PUSH 04/02/16 18:00 04/04/16 09:51 (KCl 40 Meq/30 ml Liq) 40 meq BID PO 04/02/16 21:00 04/04/16 09:52 . Family History * Patient's father of a staph infection. * Patient's mother is alive and lives in [place]. Her health status is unknown. * 2 brothers are . One of complications of diabetes. The other of unknown causes. * The patient has 4 siblings who remain alive. . Substance Use Tobacco: Non-smoker Alcohol: Non-drinker Prescription med abuse: No known abuse Illicits: No known use of illicits. . Psychosocial History Ms. Meza was born and raised in the [facility]. She moved to the [facility] in the early . The patient was once. She is . There is one daughter--Mariposa Dalton -- who lives in [place]. Two of Mariposa's daughters and a granddaughter normally live with the patient. The patient is very close to one of her sisters -- Ashley Taylor. 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 . . Spiritual/Cultural Factors Voodoo and spirituality play a very important role in this patient's life. The patient identifies as Amish. Members of her jehovah's witness and her own sleeping car porter have been providing spiritual support while in the hospital. . Living Will: Never completed Health Care Surrogate: Never completed Durable Power of Bending Shed Worker: Never completed Date completed: Never completed . Health Care Surrogate(s): No written designation of health care surrogate . Documented care wishes: No written documentation of health care goals/preferences. . Today's verbally stated goals: Patient is currently incapacitated to verbally state her own goals/preferences. It is still quite possible that she will regain capacity and be able to do so . . Family/friends goals: The patient's daughter tells me that her mother is a "survivor" and would certainly want ongoing aggressive care including resuscitation attempts. . Ethical and Legal Issues Patient is incapacitated to make her own health care decisions. It is possible she will re-gain capacity to do so. As there is no written designation of health care surrogacy, her daughter would be the appropriate legal proxy under the [place] Statutes hierarchy. . . Physical Exam Vital Signs Date Time Temp Pulse Resp B/P Pulse Ox O2 Delivery O2 Flow Rate FiO2 04/04/16 06:00 86 04/04/16 04:00 98.8 86 26 144/68 97 04/04/16 04:00 86 04/04/16 02:00 80 04/04/16 00:00 82 04/04/16 00:00 99.5 82 22 125/60 96 04/03/16 22:00 74 04/03/16 20:24 95 Nasal Cannula 4.00 04/03/16 20:00 97 Nasal Cannula 3.00 04/03/16 20:00 97.9 98 23 171/76 93 04/03/16 20:00 98 04/03/16 19:00 95 Nasal Cannula 3.00 04/03/16 18:00 81 04/03/16 16:00 99.0 82 25 129/60 97 04/03/16 16:00 82 04/03/16 14:00 91 04/03/16 12:00 88 04/03/16 12:00 99.5 88 29 125/64 99 . 04/03/16 04/04/16 19:00 07:00 Intake Total 898 ml 1698 ml Output Total 1800 ml 1375 ml Balance -902 ml 323 ml IV Total 482 ml 877 ml Tube Feeding 316 ml 621 ml Other 100 ml 200 ml Output Urine Total 1800 ml 1375 ml # Bowel Movements 1 3 . Exam CONSTITUTIONAL/GENERAL: This is an obese patient minimally responsive in an SICU bed. Eyes are open but she rarely tracks, does not follow commands for me or answer any questions. There is some periodic shivering. TUBES/LINES/DRAINS: PICC line LUE; esparza catheter; nasal cannula 02; SCDs; SKIN: No jaundice, rashes. No wounds seen anteriorly. Skin temperature appropriate. Not diaphoretic. HEAD: Atraumatic. Normocephalic. EYES: Pupils equal and round. Extraocular motions intact though rarely tracks. No scleral icterus. No injection or drainage. Fundi not examined. ENT: Unable to evaluate hearing. Nose without bleeding or purulent drainage. Throat without visible erythema, exudates, masses, or lesions. NECK: Trachea midline. No palpable thyroid enlargement or nodularity though neck difficult to assess due to obesity. CARDIOVASCULAR: Regular rate and rhythm without murmurs, gallops, or rubs. No JVD. Peripheral pulses symmetri but faint. RESPIRATORY/CHEST: Symmetric, unlabored respirations. Clear to auscultation. Breath sounds equal bilaterally. No wheezes, rales, or rhonchi. GASTROINTESTINAL: Abdomen soft, slightly distended. No grimacing with palpation. No hepato-splenomegaly, or palpable masses. No guarding. Bowel sounds present. GENITOURINARY: Without palpable bladder distension. Esparza catheter in place. MUSCULOSKELETAL: Extremities without clubbing, cyanosis. 1-2+ edema in extremities. No joint tenderness or effusion noted. No calf tenderness-- SCDs in place. No mottling or clubbing. LYMPHATICS: No palpable cervical or supraclavicular adenopathy. NEUROLOGICAL: Eyes open but unable to follow commands. Tracks me rarely and erratically. No purposeful movements seen. Intermittent trembling vs shivering. PSYCHIATRIC: Unable to evaluate due to level of responsiveness. . Diagnostic Tests Laboratory Laboratory Tests Test 04/02/16 04/02/16 04/03/16 04/04/16 04:39 17:53 04:22 04:35 White Blood Count 7.5 TH/MM3 9.0 TH/MM3 (4.0-11.0) (4.0-11.0) Red Blood Count 3.09 MIL/MM3 2.93 MIL/MM3 (4.00-5.30) (4.00-5.30) Hemoglobin 8.4 GM/DL 7.9 GM/DL (11.6-15.3) (11.6-15.3) Hematocrit 27.0 % 25.7 % (35.0-46.0) (35.0-46.0) Mean Corpuscular Volume 87.5 FL 87.8 FL (80.0-100.0) (80.0-100.0) Mean Corpuscular Hemoglobin 27.1 PG 27.2 PG (27.0-34.0) (27.0-34.0) Mean Corpuscular Hemoglobin 31.0 % 31.0 % Concent (32.0-36.0) (32.0-36.0) Red Cell Distribution Width 16.8 % 16.0 % (11.6-17.2) (11.6-17.2) Platelet Count 264 TH/MM3 260 TH/MM3 (150-450) (150-450) Mean Platelet Volume 10.4 FL 9.6 FL (7.0-11.0) (7.0-11.0) Sodium Level 147 MEQ/L 146 MEQ/L 144 MEQ/L (136-145) (136-145) (136-145) Potassium Level 4.2 MEQ/L 4.6 MEQ/L 4.1 MEQ/L 3.6 MEQ/L (3.5-5.1) (3.5-5.1) (3.5-5.1) (3.5-5.1) Chloride Level 108 MEQ/L 107 MEQ/L 102 MEQ/L (98-107) (98-107) (98-107) Carbon Dioxide Level 34.4 MEQ/L 35.0 MEQ/L 37.6 MEQ/L (21.0-32.0) (21.0-32.0) (21.0-32.0) Anion Gap 5 MEQ/L (5-15) 4 MEQ/L (5-15) 4 MEQ/L (5-15) Blood Urea Nitrogen 19 MG/DL (7-18) 20 MG/DL (7-18) 21 MG/DL (7-18) Creatinine 0.56 MG/DL 0.53 MG/DL 0.56 MG/DL (0.50-1.00) (0.50-1.00) (0.50-1.00) Estimat Glomerular Filtration 131 ML/MIN 140 ML/MIN 131 ML/MIN Rate (>89) (>89) (>89) Random Glucose 161 MG/DL 145 MG/DL 257 MG/DL (74-106) (74-106) (74-106) Calcium Level 11.5 MG/DL 11.6 MG/DL 10.8 MG/DL (8.5-10.1) (8.5-10.1) (8.5-10.1) Total Bilirubin 0.4 MG/DL (0.2-1.0) Aspartate Amino Transf 22 U/L (15-37) (AST/SGOT) Alanine Aminotransferase 24 U/L (10-53) (ALT/SGPT) Alkaline Phosphatase 133 U/L (45-117) Total Protein 7.6 GM/DL 7.5 GM/DL (6.4-8.2) (6.4-8.2) Albumin 1.9 GM/DL (3.4-5.0) Lipase 84 U/L (73-393) Protein Corrected Calcium 11.4 MG/DL (8.5-10.1) Magnesium Level 1.5 MG/DL 1.6 MG/DL (1.5-2.5) (1.5-2.5) Neutrophils (%) (Auto) 56.6 % (16.0-70.0) Lymphocytes (%) (Auto) 25.6 % (9.0-44.0) Monocytes (%) (Auto) 16.4 % (0.0-8.0) Eosinophils (%) (Auto) 1.0 % (0.0-4.0) Basophils (%) (Auto) 0.4 % (0.0-2.0) Neutrophils # (Auto) 5.1 TH/MM3 (1.8-7.7) Lymphocytes # (Auto) 2.3 TH/MM3 (1.0-4.8) Monocytes # (Auto) 1.5 TH/MM3 (0-0.9) Eosinophils # (Auto) 0.1 TH/MM3 (0-0.4) Basophils # (Auto) 0.0 TH/MM3 (0-0.2) CBC Comment DIFF FINAL Differential Comment . Result Diagram: 04/04/16 0435 04/04/16 0435 Microbiology == Multiple urine and blood cultures over the course of her hospital stay have shown no growth. . Imaging Last Impressions Chest X-Ray 04/01/16 0000 Signed Impressions: Service Date/Time: Friday, April 01, 2016 09:58 - CONCLUSION: Persistent perihilar vascular congestion with small lung volumes. Thai Reno MD Abdomen X-Ray 04/01/16 0000 Signed Impressions: Service Date/Time: Friday, April 01, 2016 10:02 - CONCLUSION: No evidence of obstruction. A feeding tube is in place. Its tip is in the distal stomach and a likely advanced into the duodenum if advanced further Thai Reno MD Lower Extremity Ultrasound 03/20/16 0000 Signed Impressions: Service Date/Time: Sunday, March 20, 2016 14:32 - CONCLUSION: No DVT of either lower extremity. Darrian Leary MD Abdomen/Pelvis CT 03/15/16 0000 Signed Impressions: Service Date/Time: Tuesday, March 15, 2016 15:26 - CONCLUSION: 1. Compared to the prior exam, the previously noted gas bubbles in the wall of the cecum have resolved. 2. Otherwise, no other new or significant changes compared to the prior study. Wilver Bond MD Head CT 03/14/16 0000 Signed Impressions: Service Date/Time: Monday, March 14, 2016 16:13 - CONCLUSION: Normal examination. Jere Toro MD Renal Ultrasound 03/13/16 0000 Signed Impressions: Service Date/Time: Sunday, March 13, 2016 16:39 - CONCLUSION: Unremarkable renal ultrasound. Abisai Lundy MD GI Procedure 03/05/16 0000 Signed Impressions: Service Date/Time: Friday, March 04, 2016 23:02 - CONCLUSION: ERCP as above. Vidal Ye MD Gall Bladder Ultrasound 03/04/16 0000 Signed Impressions: Service Date/Time: Friday, March 04, 2016 19:36 - CONCLUSION: 1. Thick-walled gallbladder with some pericholecystic fluid and multiple gallstones in the region of the neck. The findings are suggestive of acute cholecystitis. Clinical correlation is recommended. 2. Fatty liver. 3. Minimal ascites within Polanco's pouch. 4. Poor visualization of the pancreas due to shadowing bowel gas. Odilon Butler MD Cholangiopancreatography MRI 03/04/16 0000 Signed Impressions: Service Date/Time: Saturday, March 04, 2016 18:24 - CONCLUSION: 1. Extensive edema throughout the retroperitoneum and pancreas. No abscess or pseudocyst. 2. Tiny layering gallstones within the gallbladder. No discrete common bile duct stone. There is tapering of the common bile duct within the pancreatic head felt to be secondary to the edema within the pancreas. No discrete mass or choledocholithiasis. No intrahepatic or extrahepatic ductal dilatation. Maxwell Hsu Jr., MD . Procedures * MRCP * ERCP * PICC line . Patient/Family Conference Present at Family Conference: Patient's daughter -- Lazara Dalton . . Family Conference Time (mins): 25 Family Conference Location: Telephone Issues Discussed: * Palliative care role, purpose, approach * Additional medical, psychosocial, and spiritual history * Patients general health, functional status, and cognitive changes in the months leading up to the current hospitalization * Family understanding of the current medical problems * Family understanding of prognosis * Patients goals of care as best understood from conversations and/or values * Current medical treatment options and benefits/burdens of those options * Questions answered to the best of my ability . Assessment and Plan Disease Oriented Problem List: (1) Cholangitis (2) Pancreatitis, acute (3) Ventricular tachycardia (paroxysmal) (4) Severe sepsis with acute organ dysfunction Comment: cultures have been negative. . (5) HTN (hypertension) (6) Anasarca (7) Acute renal failure Comment: improving. . Symptom Scale: (1) Pain 0-10 Scale: Unable to quantify Comment: Patient is nonverbal at time of my visit and unable to quantify / qualify pain. Nursing pain intensity levels mostly between 4 and 8. Pain has mostly been abdominal when she has been able to verbalize. . (2) Encephalopathy 0-10 Scale: Unable to quantify Comment: Nursing staff reports encephalopathy waxes and wanes. Patient was non -interactive with me but was verbal later on with nurse. Encephalopathy is probably multi-factorial but mostly metabolic. . Pertinent Non-Medical Issues Psychosocial: Spiritual: Legal: Ethical issues impacting care: Important Contacts * Mariposa Dalton (daughter) -- [phone] * Ashley Taylor (sister) [phone] * Luz Maria Chavarria H: [phone]; C: [phone] Prognosis Per the GI design and sales consultant, in spite of this patient's illness severity and delayed recovery, it is still quite feasible that with ongoing supportive care she will improve and return to quality life. . Code Status: Full Code Plan == Code status: FULL CODE == Decision making: Patient has some waxing and waning capacity but at time of my visit was certainly not able to make her own health care decisions. While incapacitated, her daughter -- Mariposa Dalton -- is the proxy health care decision maker. == Goals of medical treatment: Family has told me that the patient's goals/ preferences are aggressive. She would want everything done to try and get better including resuscitation attempts if necessary. == Pain: Patient is unable to quantify / qualify pain at time of my visit. When verbal, pain has mostly been abdominal. Nursing pain assessments show most pain levels in the 4-8 range. Her only opiate analgesic is currently [place] 5- 325. Per nursing assessments, is appears to be adequate in reducing pain levels most of the time. No further recommendations at this time. == Encephalopathy: The cause of her waxing/waning mental status is unclear. Possibly delirium vs metabolic encephalopathy. Treating the underlying medical problem is the most important approach, but may want to consider low dose haloperidol (e.g. 0.5 mg per feeding tube q 8 hours ATC) if this appears to be an agitated delirium. == Dyspnea: Currently responding to nasal cannula 02 and prn nebs. No further recommendations at this time. == Palliative care will follow to assit with symptom management and to further clarify goals of medical treatment as the clinical course evolves. . Time Spent Total Floor Time (mins): 80 (Total floor time included chart review; patient exam; collaboration with primary nurse; in-person discussion with Dr. Stewart; telephone conversation with Dr. Lucero; and above referenced telephone conversation with the patient's daughter.) Face to Face Time (mins): 10 >50% Counseling/Coord of Care: Yes Thank you for the opportunity to participate in the care of Ms. Dalton. Attestation To help prompt me to consider important information that might be impacting today's encounter and assessment, information from prior notes written by myself or my colleagues may have been "brought forward" into today's note. My signature on this note, however, is an attestation that I personally performed the exam, history, and/or decision-making noted today, and, unless otherwise indicated, the interactions with patient, family, and staff as well as the review of records all occurred today. I also attest that the listed assessment and stated plan reflect my best clinical judgment today based on the combination of historical information, prior notes, and today's exam/ interactions. When time spent is documented, it refers only to time spent today by the signer, or if indicated, combined time spent today by collaborating physician/nurse practitioner. . Samuel Reid MD Apr 04, 2016 12:13
[2016-04-04] MEDS ORDERED: DIATRIZOATE MEGLUM/DIATRIZOATE SOD 9 ML CUP PO ONE (13:15)
--- NOTE | 2016-04-04 16:32 | HHI.PR ---
Subjective Remarks more alert today. Objective Vitals Vital Signs Date Time Temp Pulse Resp B/P Pulse Ox O2 Delivery O2 Flow Rate FiO2 04/04/16 07:00 98 Nasal Cannula 3.00 04/04/16 06:00 86 04/04/16 04:00 98.8 86 26 144/68 97 04/04/16 04:00 86 04/04/16 02:00 80 04/04/16 00:00 82 04/04/16 00:00 99.5 82 22 125/60 96 04/03/16 22:00 74 04/03/16 20:24 95 Nasal Cannula 4.00 04/03/16 20:00 97 Nasal Cannula 3.00 04/03/16 20:00 97.9 98 23 171/76 93 04/03/16 20:00 98 04/03/16 19:00 95 Nasal Cannula 3.00 04/03/16 18:00 81 04/03/16 04/03/16 04/04/16 15:00 23:00 07:00 Intake Total 898 ml 765 ml 933 ml Output Total 1800 ml 1025 ml 350 ml Balance -902 ml -260 ml 583 ml IV Total 482 ml 392 ml 485 ml Tube Feeding 316 ml 273 ml 348 ml Other 100 ml 100 ml 100 ml Output Urine Total 1800 ml 1025 ml 350 ml # Bowel Movements 1 3 0 Result Diagram: 04/04/16 0435 04/04/16 0435 Imaging Last Impressions Chest X-Ray 03/09/16 0000 Signed Impressions: Service Date/Time: February 13:11 - CONCLUSION: Left lower lobe atelectasis versus infiltrate is unchanged. Maxwell Hsu Jr., MD Abdomen X-Ray 03/09/16 0000 Signed Impressions: Service Date/Time: February 11:11 - CONCLUSION: 1. The tip of the weighted feeding tube is located in the descending portion of the duodenum. Scar Resendez MD Abdomen/Pelvis CT 03/08/16 0000 Signed Impressions: Service Date/Time: Tuesday, March 08, 2016 15:28 - CONCLUSION: Severe changes of pancreatitis, potentially with areas of hemorrhagic conversion. Darrian Engel MD GI Procedure 03/05/16 0000 Signed Impressions: Service Date/Time: Friday, March 04, 2016 23:02 - CONCLUSION: ERCP as above. Vidal Ye MD Gall Bladder Ultrasound 03/04/16 0000 Signed Impressions: Service Date/Time: Friday, March 04, 2016 19:36 - CONCLUSION: 1. Thick-walled gallbladder with some pericholecystic fluid and multiple gallstones in the region of the neck. The findings are suggestive of acute cholecystitis. Clinical correlation is recommended. 2. Fatty liver. 3. Minimal ascites within Polanco's pouch. 4. Poor visualization of the pancreas due to shadowing bowel gas. Odilon Butler MD Cholangiopancreatography MRI 03/04/16 0000 Signed Impressions: Service Date/Time: Friday, March 04, 2016 18:24 - CONCLUSION: 1. Extensive edema throughout the retroperitoneum and pancreas. No abscess or pseudocyst. 2. Tiny layering gallstones within the gallbladder. No discrete common bile duct stone. There is tapering of the common bile duct within the pancreatic head felt to be secondary to the edema within the pancreas. No discrete mass or choledocholithiasis. No intrahepatic or extrahepatic ductal dilatation. Maxwell Hsu Jr., MD Objective Remarks GENERAL: This is a well-nourished, well-developed patient, in no apparent distress. CARDIOVASCULAR: Regular rate and rhythm without murmurs, gallops, or rubs. RESPIRATORY: Clear to auscultation. Breath sounds equal bilaterally. No wheezes , rales, or rhonchi. GASTROINTESTINAL: Abdomen soft, non-tender, nondistended. Normal active bowel sounds MUSCULOSKELETAL: Extremities without clubbing, cyanosis, or edema. NEURO: Alert & Oriented x4 to person, place, time, situation. Moves all ext x4 Date of Insertion: Mar 22, 2016 Line: PICC Side: Left Location: Antecubital A/P Problem List: (1) Severe sepsis with acute organ dysfunction Status: Acute Plan: - Pt admitted with sudden onset of abd pain, nausea/vomiting on 03/04/16 - LFTs were elevated at TBili 4.0, AST 472, ALT 378, AlkPhos 154 with Lipase of 7635 - Also noted to have an elevated Lactic acid of 4.5 and was admitted to ICU - MRCP (03/04) --> Extensive edema throughout the retroperitoneum and pancreas. No abscess or pseudocyst. Tiny layering gallstones within the gallbladder. No discrete common bile duct stone. There is tapering of the common bile duct within the pancreatic head felt to be secondary to the edema within the pancreas. No discrete mass or choledocholithiasis. No intrahepatic or extrahepatic ductal dilatation. - GB US (03/04) --> Thick-walled gallbladder with some pericholecystic fluid and multiple gallstones in the region of the neck. The findings are suggestive of acute cholecystitis. Fatty liver. Minimal ascites within Polanco's pouch. - Pt was seen by GI and underwent ERCP with stent placement in the CBD on - repeat CT Abd/pelvis (03/08/16) severe pancreatitis, potentially with areas of hemorrhagic conversion. -CT abdomen and pelvis 03/15 appears to be less pneumatosis intestinalis in the ascending colon/noted and likely colonic ileus admitted with cholangitis. 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 seems to correct to over 13. ?prim. hyperparathyroidism encephalopathy. could be metabolic related to na/ca anasarca. 20 kg weight gain since admission hypokalemia related to diuretic cont tube feeding. increase as not taking po. lower free flush added gentle d5w and lasix.increase lasix and kcl pamidronate as ca corrects to 13.1 and pt with encephalopathy recheck na and ca level and monitor for cognitive improvement PT daily dvt prophylaxis cont abx per ID...length of rx to be decided by Dr Ayers laxatives and reglan stopped cont ppi discussed with nursing and charge nurse. mental status is same for quite some time. no acute change today. discussed with brother at bedside. gaurded prognosis. 04/04/16 - no change in clinical status - poor prognosis - appreciate input from palliative - hypercalcemia improving. Pt received bisphosphonate 04/02, observe - worsening hyperpnea? obtain ABG - request ID to review ABX regimen - request consult from [facility] (2) Pancreatitis, acute Status: Acute Plan: - See above. (3) Cholangitis Status: Acute Plan: - See above (4) Ventricular tachycardia (paroxysmal) Status: Acute Plan: - Cardiology consulted on 03/08 due to pt having a two runs of ventricular tachycardia on 03/07 which was felt to be secondary to her acute illness. - Pt was started on Metoprolol 50mg Q12H - No further issues with dysrhythmia noted - 2D echo (03/08) - Estimated EF 55-60% - Mild tricuspid regurgitation - PA peak pressure 39mmHg (5) HTN (hypertension) Status: Chronic Plan: - Cont. Metoprolol 50mg BID - Cont. Lisinopril 10mg BID (6) Renal insufficiency Status: Acute Plan: -see above Problem Qualifiers (1) Pancreatitis, acute: Yandel Stewart DO Apr 04, 2016 16:32
[2016-04-04] MEDS ORDERED: IOHEXOL 350 MG/ML 10 ML VIAL (for RAD DIAG) IV ONE (18:01)
--- NOTE | 2016-04-04 18:50 | HHI.CCPN ---
Subjective Remarks/Hospital Course > 48 hour history of epigastric pain, vomiting. GB US reveals cholecystitis with stones in neck. MRCP - pancreatitis, ducts not dilated. Received stent into a bile duct secondary to stricture due to pancreatic head edema. [facility] re -consulted today 03/12 due to patient's tachypnea and abdominal distention. Reconsulted 04/04: Continued lack of improvement. Appears to have developed contraction alkalosis from chronic loop diuretics. CT shows massive pancreatic pseudocyst which will require drainage. Objective Vital Signs Date Time Temp Pulse Resp B/P Pulse Ox O2 Delivery O2 Flow Rate FiO2 04/04/16 16:00 99.1 80 25 155/72 97 04/04/16 07:00 Nasal Cannula 3.00 Intake and Output 04/03/16 04/03/16 04/04/16 08:00 16:00 00:00 Intake Total 808 ml 898 ml 765 ml Output Total 550 ml 1800 ml 1025 ml Balance 258 ml -902 ml -260 ml Result Diagram: 04/04/16 0435 04/04/16 0435 Imaging Last Impressions Chest X-Ray 03/26/16 06 Signed Impressions: Service Date/Time: Saturday, March 26, 2016 05:15 - CONCLUSION: Stable bilateral perihilar infiltrates and left lower lobe consolidation. Maxwell Choi MD Abdomen X-Ray 03/26/16 06 Signed Impressions: Service Date/Time: Saturday, March 26, 2016 05:18 - CONCLUSION: Improving distended loops of bowel. The metallic tip feeding tube has changed position and is now projected in the stomach. Maxwell Choi MD Lower Extremity Ultrasound 03/20/16 0000 Signed Impressions: Service Date/Time: Sunday, March 20, 2016 14:32 - CONCLUSION: No DVT of either lower extremity. Darrian Leary MD Abdomen/Pelvis CT 03/15/16 0000 Signed Impressions: Service Date/Time: Tuesday, March 15, 2016 15:26 - CONCLUSION: 1. Compared to the prior exam, the previously noted gas bubbles in the wall of the cecum have resolved. 2. Otherwise, no other new or significant changes compared to the prior study. Wilver Bond MD Head CT 03/14/16 0000 Signed Impressions: Service Date/Time: Monday, March 14, 2016 16:13 - CONCLUSION: Normal examination. Jere Toro MD Renal Ultrasound 03/13/16 0000 Signed Impressions: Service Date/Time: Sunday, March 13, 2016 16:39 - CONCLUSION: Unremarkable renal ultrasound. Abisai Lundy MD GI Procedure 03/05/16 0000 Signed Impressions: Service Date/Time: Friday, March 04, 2016 23:02 - CONCLUSION: ERCP as above. Vidal Ye MD Gall Bladder Ultrasound 03/04/16 0000 Signed Impressions: Service Date/Time: Friday, March 04, 2016 19:36 - CONCLUSION: 1. Thick-walled gallbladder with some pericholecystic fluid and multiple gallstones in the region of the neck. The findings are suggestive of acute cholecystitis. Clinical correlation is recommended. 2. Fatty liver. 3. Minimal ascites within Polanco's pouch. 4. Poor visualization of the pancreas due to shadowing bowel gas. Odilon Butler MD Cholangiopancreatography MRI 03/04/16 0000 Signed Impressions: Service Date/Time: Friday, March 04, 2016 18:24 - CONCLUSION: 1. Extensive edema throughout the retroperitoneum and pancreas. No abscess or pseudocyst. 2. Tiny layering gallstones within the gallbladder. No discrete common bile duct stone. There is tapering of the common bile duct within the pancreatic head felt to be secondary to the edema within the pancreas. No discrete mass or choledocholithiasis. No intrahepatic or extrahepatic ductal dilatation. Maxwell Hsu Jr., MD Objective Remarks GENERAL: 66-year-old AA female, morbidly obese, critically ill appearing, currently resting in bed in no acute distress SKIN: Warm and dry. No rash HEAD: Atraumatic. Normocephalic. NECK: Trachea midline. Airway widely patent CARDIOVASCULAR: Regular rate and rhythm. S1, S2. No S4. Without murmur. No JVD. RESPIRATORY: Distant breath sounds. Good bilateral BS. Generally clear. GASTROINTESTINAL: Abdomen obese. Less tender to palpation in all quadrants. Hypoactive bowel sounds. MUSCULOSKELETAL: Extremities with 1+ bilateral lower extremity pedal edema/ anasarca-like improved since admission. NEUROLOGICAL: Tracks with eyes. Nodes head. Date of Insertion: Mar 22, 2016 Line: PICC Side: Left Location: Antecubital A/P Problem List: (1) Severe sepsis with acute organ dysfunction ICD Code: A41.9 Status: Acute (2) Cholangitis ICD Code: K83.0 Status: Acute (3) Hypertensive urgency ICD Code: I16.0 Status: Acute Assessment and Plan Neuro/Psych: Pain management for acute pancreatitis Acetaminophen for fever [place] 5/325 one every 4 hours/ morphine 2 mg every 3 hours hours when necessary for pain management CV: Severe sepsis from cholangitis and pancreatitis Hypertension by history Dyslipidemia - Noted elevated HDL/LDL/total cholesterol - triglycerides within normal limits Consider statin when appropriate once LFTs normalize - 2-D echo EF 55 - 60%. Trace ANNIE 39 mmHg Resp: Acute respiratory insufficiency likely secondary to volume overload - Nasal cannula to maintain saturations greater than equal to 92%. - Incentive spirometry while awake --Chest x-ray 03/26 with left lower lobe infiltrate GI: Status post ERCP/placement of stenting, bile duct secondary to stenosis Acute necrotizing Pancreatitis Possible pneumatosis intestinalis Transaminitis Hypo-albuminemia CT abdomen/pelvis 03/12 revealed multiple gallstones/worsening pancreatitis and possible pneumatosis intestinalis involving the cecum and the ascending colon Dr. Ceballos/general surgery following Discussed with Dr. Moulton yesterday. Agreed with hemodialysis and attempt to remove extra cellular fluid while maintaining intravascular volume. Difficult situation 14-24 intra-abdominal bladder pressures - Dr. Lucero/GI performed ERCP 03/04 with stent placement, distal common bile duct 8.5 Pashto 7 cm secondary to stricture - Ultrasound revealed thickening in the gallbladder with pericholecystic fluid. Tiny gallstones noted. 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 Renal: LOI - resolved - Creatinine appears to be stabilizing - Avoid nephrotoxic drugs. Noted lisinopril/hctz held - Nephrology consultation following when necessary as needed -Negative urine eosinophils renal ultrasound without obstruction - Follow BMP in a.m. Heme/Onc: History of breast cancer status post right mastectomy Leukocytosis Normocytic anemia CBC stable around 8 Currently holding Letrozole 2.5 mg daily with elevated LFTs. Resume when clinically indicated ID: Possible necrotizing pancreatitis/pneumatosis intestinalis ID consult appreciated to see today Pertinent cultures 03/04 - urine culture - negative 03/04 - blood cultures 2 - negative 03/07 - blood cultures 2 - negative 03/13 - blood cultures 2 -no growth 03/15 - urine culture -no growth / - blood cultures 2 - no growth 1/2 - urine cultures - negative FEN: Hypercalcemia Hypopotassemia Hypernatremia Replace electrolytes as clinically indicated 40 mEq potassium chloride 1. Recheck Currently on Nepro at 40 cc an hour general surgery Currently on free water 250 cc every 4 hours Checking PTH, PTH RP, and vitamin D analogs and SPEP. MSK: Access -PICC Prophylaxis - GI - Protonix - DVT - SCD/heparin Overall impression: Nutritionally depleted, large pseudocyst. May improve clinically after drainage. Carl Maxwell MD Apr 04, 2016 18:50 40 mEq potassium chloride 1. Recheck Currently on Nepro at 40 cc an hour general surgery Currently on free water 250 cc every 4 hours Checking PTH, PTH RP, and vitamin D analogs and SPEP. 1 dose of calcitonin salmon today. MSK: Out of bed/PT evaluate and treat Access PICC line day #6 -Right IJ CVL day 10 placed 03/14 and removed 1/5 - Left IJ hemodialysis catheter placed 03/13 and removed 1/ Prophylaxis - GI - Protonix - DVT - SCD/heparin Critical Care: The total critical care time was 35 minutes. Time to perform other separately billable procedures was not included in the critical care time. Carl Maxwell MD Apr 04, 2016 18:50
--- NOTE | 2016-04-04 19:00 | RADRPT ---
EXAM DATE/TIME: 04/04/2016 17:57 [place] COMPARISON: CT ABDOMEN & PELVIS W/O CONTRAST, March 15, 2016, 15:26. CT ABDOMEN & PEL VIS W CONTRAST, March 08, 2016, 15:28. INDICATIONS : Abdominal pain , history of pancreatitis . IV CONTRAST: 65 cc Omnipaque 350 (iohexol) IV ORAL CONTRAST: Prescribed oral contrast ingested. RADIATION DOSE: 25.49 CTDIvol (mGy) MEDICAL HISTORY : Metastatic, breast. SURGICAL HISTORY : Hysterectomy. Mastectomy, right. ENCOUNTER: Initial ACUITY: 3 weeks PAIN SCALE: Non-responsive LOCATION: Abdomen TECHNIQUE: Volumetric scanning of the abdomen and pelvis was performed. Using automated exposure control and adjustment of the mA and/or kV according to patient size, radiation dose was kept as low as reasonably achievable to obtain optimal diagnostic quality images. FINDINGS: Minimal bibasilar consolidative changes are noted. The feeding tube is across the GE j unction. There is no intrahepatic biliary ductal dilatation. The pancreas for the most part has been replaced by a large pseudocyst occupying most of the pancreat ic bed measuring 19.6 cm x 4.8 cm. This pseudocyst still has a very thin imperceptible wall. This i s bilobed and does extend deep into the abdomen measuring 19.8 cm. There is a biliary stent in place. This is causing significant compression on the stomach. There is induration in both pericolic gutters extending down along the iliopsoas on the left. Pelvic contents are otherwise unremarkable. There is induration in the subcutaneous tissues bilaterally, more so on the right than the left. CONCLUSION: 1. Large pseudocyst as described above, given its size probably best treated with a cyst gastrostomy. Percutaneous drainage of the inferior portion of this may be necessary if this all doesn't drain th rough the cyst gastrostomy. 2. There is very little pancreatic tissue remaining. 3. Biliary stent is noted without intrahepatic biliary ductal dilatation. Mark Anthony Resendez MD FACR on April 04, 2016 at 18:19 Board Certified Radiologist. This report was verified electronically.
[2016-04-04 19:30] LABS: BLOOD GAS BASE EXCESS 12.3 mmol/L (-2-2); BLOOD GAS CARBOXYHEMOGLOBIN 1.9 % (0-4); BLOOD GAS HCO3 38 mmol/L (22-26); BLOOD GAS METHEMOGLOBIN 0.8 % (0-2); BLOOD GAS O2 HGB SATURATION 96 % (90-100); BLOOD GAS OXYGEN CONTENT 11.7 Vol % (12.0-20.0); BLOOD GAS PCO2 60 mmHg (38-42); BLOOD GAS PO2 103 mmHg (61-120); BLOOD GAS TOTAL HGB 8.6 G/DL (12.0-16.0); CRITICAL VALUE YES; DRAW SITE LT RADIAL; LITER FLOW 4 L/M; NUMBER OF ARTERIAL PUNCTURES 1; OXYGEN DEVICE NASAL CANNULA; STAT NO; TEMP CORR TO 98.6; ULNAR PULSE PRESENT
[2016-04-05] VITALS (13 sets, daily range): BP systolic 140–158; BP diastolic 62–71; PULSE 78–98; RESP 18–27; TEMP 98–99.3; O2SAT 93–98
[2016-04-05] MEDS: MEROPENEM INJ 1,000 MG in SODIUM CHLORIDE 0.9% INJ 100 ML IV SCH ×3 (02:15→18:00)
[2016-04-05] MEDS: FREE WATER G-TUBE SCH ×5 (04:00→21:21)
[2016-04-05] MEDS: CHLORHEXIDINE GLUCONATE 2 % 1 PACK (2 CLOTHS) TOP SCH (04:00)
[2016-04-05] MEDS: INSULIN NovoLIN REGULAR SUPPLEMENTAL SCALE SQ SCH ×5 (04:41→22:38)
[2016-04-05] MEDS: HEPARIN SODIUM - SQ 10,000 UNITS/ML VIAL SQ SCH ×3 (05:03→21:36)
[2016-04-05] MEDS: hydrALAZINE HCL 10 MG TAB PO SCH ×3 (05:03→21:35)
[2016-04-05] MEDS: METOPROLOL TARTRATE 50 MG TAB PO SCH ×3 (05:03→21:35)
[2016-04-05] MEDS: ISOSORBIDE DINITRATE 10 MG TAB PO SCH ×3 (05:03→21:35)
[2016-04-05 06:15] LABS: BASOPHIL % 0.4 % (0.0-2.0); EOSINOPHIL # 0.1 TH/MM3 (0-0.4); EOSINOPHIL % 1.4 % (0.0-4.0); HEMATOCRIT 26.3 % (35.0-46.0); HEMO FLAGS DIFF FINAL; LYMPH % 25.9 % (9.0-44.0); LYMPHOCYTE # 2.6 TH/MM3 (1.0-4.8); MEAN CORPUSCULAR HEMOGLOBIN 26.8 PG (27.0-34.0); MEAN CORPUSCULAR HGB CONC 30.1 % (32.0-36.0); NEUT % 59.3 % (16.0-70.0); PLATELET COUNT 293 TH/MM3 (150-450); RED BLOOD COUNT 2.95 MIL/MM3 (4.00-5.30); RED CELL DISTRIBUTION WIDTH 15.7 % (11.6-17.2); WHITE BLOOD COUNT 10.1 TH/MM3 (4.0-11.0)
[2016-04-05 06:35] LABS: BICARBONATE 38.3 MEQ/L (21.0-32.0); MAGNESIUM 1.5 MG/DL (1.5-2.5); POTASSIUM 3.1 MEQ/L (3.5-5.1)
[2016-04-05] MEDS: PANTOPRAZOLE SODIUM 40 MG VIAL IV SCH (07:42)
[2016-04-05] MEDS: DOCUSATE SODIUM 100 MG CAP PO SCH ×2 (07:43→21:00)
[2016-04-05] MEDS: POTASSIUM CL 40 MEQ/30 ML LIQ UDC PO SCH ×2 (07:43→21:35)
[2016-04-05] MEDS: SODIUM CHLORIDE 0.9% FLUSH 5 ML FLUSH IV FLUSH SCH ×2 (07:43→21:21)
[2016-04-05] MEDS: FUROSEMIDE 40 MG/4 ML VIAL IV PUSH SCH ×2 (07:43→18:00)
[2016-04-05] MEDS: DEXTROSE 5% IN WATE 1000ML INJ 1,000 ML IV SCH (09:28)
[2016-04-05] MEDS: DEXTROSE 5% IV SCH ×2 (11:10)
[2016-04-05] MEDS: MICAFUNGIN IV SCH ×2 (11:10)
[2016-04-05] MEDS: WATER IV SCH ×2 (11:10)
[2016-04-05 12:13] LABS: APTT (PATIENT) 23.6 SEC (24.3-30.1); INTERNATIONAL NORMALIZED RATIO 1.2 RATIO; PROTHROMBIN TIME - PATIENT 13.4 SEC (9.8-11.6)
--- NOTE | 2016-04-05 13:28 | HHI.HCPN ---
Reason for visit a. To assist with evaluation and management of symptoms including: pain; encephalopathy; dyspnea b. To assist medical decision maker(s) with: better understanding of current medical conditions; weighing benefits/burdens of medical treatment options; making medical treatment decisions. . Subjective/Interval History No significant change overnight. CT of late yesterday revealed a very large pancreatic pseudocyst. Patient scheduled for interventional radiology today for possible drainage. Patient is mostly non-interactive when I am in the room -- staring straight ahead and not answering any of my questions. When I asked her to squeeze my finger if she was able to understand me I got a barely perceptible squeeze. Surprisingly, just before I left the room , I place my hand on her forehead and she said, "Ooooh, that's a cold hand." I tried to get her to speak with me some more and she would not cooperate. The nurse said she seemed able to speak on the phone earlier. Patient has some mild head bobbing with respirations, but there is no obvious grimacing and no moaning. There has been no use of opiate analgesics in the last 24 hours. Afebrile. VSS stable. 02 sats in upper 90s on 02 via N/C. Good urine output with about 4500 cc negative fluid balance over last 3 days. Large volume loose stool today per nurse. WBC 10.1; Hg 7.9; Plt 293 K 3.1; GFR 129; Ca 10.5. Albumin 1.[address] abd/pelvis from yesterday evening shows the large pseudocyst. . From Dr. Reid's initial palliative care consultation note of 04/04/16... Ms. Dalton is a 66-year-old female with a past medical history notable for breast cancer and hypertension who presented to the [facility] Emergency Department on 03/04/16 with a 1-2 day history of severe and unrelenting nausea/ vomiting. There was also abdominal pain/tenderness. She had been unable to keep anything down on the day of presentation. The patient denied fevers, chills, dysuria, or hematuria. She had had a loose stool the day prior to presentation. Vital signs in the emergency room revealed the following: Temperature 97.8; pulse 70; respiratory rate 14; blood pressure 204/90; pulse oximetry 96% on O2 at 2 L a minute. Initial examination by the emergency department provider showed the following: Patient was ill-appearing. Cardiovascular and respiratory exams were unremarkable. The abdomen was soft but diffusely tender to palpation. Tenderness was most pronounced in the upper abdomen but there was no rebound or guarding. The remainder of the exam was unremarkable. Initial diagnostic testing in the emergency department revealed the following: * Arterial blood gases showed pH 7.42; PCO2 35; PCO2 63; bicarbonate 23; base excess -1.1 on room air. * Urinalysis showed trace glucose; small occult blood; moderate bilirubin; 33 WBCs; rare bacteria; moderate mucus * CBC showed WBC 16.8; hemoglobin 14.5; platelets 246 * Coag profile showed PT 12.0; INR 1.1; PTT 24.3 * Serum chemistry panel showed sodium 138; potassium 3.1; chloride 100; CO2 25.4 ; anion gap 13; BUN 14; creatinine 1.2; glucose 207; lactic acid 4.5; calcium 10.5 * Liver function studies show total bilirubin 4.0; AST 472; ALT 378; alkaline phosphatase 154; total protein 8.5; albumin 3.7 * Lipase was 7635 * Troponin was less than 0.02 * Upright plain films revealed no free air in the abdomen. In the emergency department, differential diagnosis included perforated ulcer, cholecystitis, colitis, cholangitis, sepsis, and ischemic bowel. The patient was given 2 L of IV fluid. Cultures were obtained. She was empirically started on intravenous Zosyn. Gastroenterology was consulted and the GI physician ordered MRCP. Critical care was consulted for admission to the medical intensive care unit. Abdominal ultrasound showed a thick-walled gallbladder with some pericholecystic fluid and multiple gallstones in the region of the neck. The findings were felt to be suggestive of acute cholecystitis. The study also revealed a fatty liver and minimal ascites. MRCP showed extensive edema throughout the retroperitoneum and pancreas with no abscess or pseudocyst. The MRCP confirmed tiny layering gallstones within the gallbladde but no discrete common bile duct stone. The patient underwent ERCP. 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 There was good flow of bile following the procedure. The patient initially improved, but she had a persistent leukocytosis and began having low-grade elevated temperatures. The patient also developed some short runs of ventricular tachycardia. Repeat CT imaging on 03/08/16 showed severe changes of pancreatitis potentially with areas of hemorrhagic conversion. Cardiology consultation took place for the ventricular tachycardia and the patient was placed on beta blockers. An echocardiogram was ordered which was relatively normal. With some worsening of abdominal pain, decreased urine output, increasing creatinine, and an increasing white blood count, critical care was reconsulted and the patient was transferred back to the intensive care unit. Renal decompensation continued and the patient required hemodialysis beginning . She became more lethargic. TPN was initiated on 03/15/16. An insulin drip was started to control blood sugars. The patient continued to have elevated temperatures but showed other signs of improvement. She was transitioned from TPN to tube feedings. She was able to get out of bed to chair. Her white blood count stabilized. Hemodialysis was stopped. the patient , however, has declined again -- she is now quite lethargic and minimally interactive. Her picture has become one of severe pancreatitis. I have spoken at length with Drs. Stewart and Nic. Dr. Stewart is quite concerned given the patient's course , that the prognosis is poor and that the patient may not survive the hospitalization or might survive in a debilitated condition for which she will never be able to fully recover. Dr. Lucero felt that although her healing/recovery was taking longer than expected, that it was still quite possible that by providing good supportive care for a while longer she will be able to turn the corner and get better. . . Family/friend interactions Nurse reports she spoke on the phone with a sister of the patient who claims to be the designated health care surrogate. She indicated that she had paperwork that other family members were supposed to put on the chart. When told that it was not there, she indicated that she would have to drive here personally to make sure this was done. . Advance Directives Living Will: Never completed Health Care Surrogate: Never completed Durable Power of Manual Arts Teacher: Never completed Advance Directive Specifics Date completed: Never completed per daughter. One of the patient's sisters told a nurse on that she had been appointed the surrogate, had paperwork to prove it, and that she was going to drive here personally to get copies of the legal forms on the chart. . Health Care Surrogate(s): No written designation of health care surrogate available at this time. One of the patient's sisters told a nurse on 04/05/16 that she had been appointed the surrogate, had paperwork to prove it, and that she was going to drive here personally to get copies of the legal forms on the chart. . . Documented care wishes: No written documentation of health care goals/preferences. . Objective Vital Signs Date Time Temp Pulse Resp B/P Pulse Ox O2 Delivery O2 Flow Rate FiO2 04/05/16 12:00 89 04/05/16 10:00 81 04/05/16 08:15 97 Nasal Cannula 2.00 04/05/16 08:00 79 04/05/16 08:00 98.0 79 18 143/65 97 04/05/16 07:00 Nasal Cannula 3.00 04/05/16 06:00 78 04/05/16 04:00 93 04/05/16 04:00 99.1 91 22 140/62 95 04/05/16 02:00 90 04/05/16 00:00 85 04/05/16 00:00 99.3 93 23 149/67 95 04/04/16 22:00 90 04/04/16 20:35 96 Nasal Cannula 2.00 04/04/16 20:00 87 04/04/16 20:00 99.0 87 25 148/65 98 04/04/16 19:00 98 Nasal Cannula 3.00 04/04/16 18:00 90 04/04/16 16:00 99.1 80 25 155/72 97 04/04/16 16:00 80 04/04/16 14:00 94 Intake & Output 04/05/16 04/05/16 07:00 19:00 Intake Total 1414 ml Output Total 2800 ml Balance -1386 ml IV Total 659 ml Tube Feeding 655 ml Other 100 ml Output Urine Total 2200 ml Stool Total 600 ml # Bowel Movements 2 . Physical Exam CONSTITUTIONAL/GENERAL: This is an obese patient in an SICU bed. Initially she appeared minimally responsive as she doesn't track me, doesn't answer questions, and does not follow commands. However, just before the end of my visit, I place a hand on her forehead and she said , "OOh, that's a cold hand." TUBES/LINES/DRAINS: PICC line LUE; esparza catheter; nasal cannula 02; SCDs; NG tube SKIN: No jaundice, rashes. No wounds seen anteriorly. Skin temperature appropriate. Not diaphoretic. HEAD: Atraumatic. Normocephalic. EYES: Pupils equal and round. Extraocular motions intact though rarely tracks. No scleral icterus. No injection or drainage. Fundi not examined. ENT: Unable to evaluate hearing. Nose without bleeding or purulent drainage. NECK: Trachea midline. CARDIOVASCULAR: Regular rate and rhythm without murmurs, gallops, or rubs. No JVD. RESPIRATORY/CHEST: Symmetric, slighlty labored respirations with mild head- bobbing. Clear to auscultation. Breath sounds equal bilaterally. No wheezes, rales, or rhonchi. GASTROINTESTINAL: Abdomen soft, slightly distended. No grimacing with palpation. No hepato-splenomegaly, or palpable masses. No guarding. Bowel sounds present. GENITOURINARY: Without palpable bladder distension. Esparza catheter in place. MUSCULOSKELETAL: Extremities without clubbing, cyanosis. 1-2+ edema in extremities. No joint tenderness or effusion noted. No calf tenderness-- SCDs in place. No mottling or clubbing. LYMPHATICS: Not examined. NEUROLOGICAL: Eyes open but rarely tracks me and rarely follows commands. Able to speak , however. No purposeful movements seen. PSYCHIATRIC: Unable to evaluate due to level of responsiveness. . Diagnostic Tests Laboratory Laboratory Tests Test 04/02/16 04/03/16 04/04/16 04/04/16 17:53 04:22 04:35 19:18 Potassium Level 4.6 MEQ/L 4.1 MEQ/L 3.6 MEQ/L (3.5-5.1) (3.5-5.1) (3.5-5.1) Sodium Level 146 MEQ/L 144 MEQ/L (136-145) (136-145) Chloride Level 107 MEQ/L 102 MEQ/L (98-107) (98-107) Carbon Dioxide Level 35.0 MEQ/L 37.6 MEQ/L (21.0-32.0) (21.0-32.0) Anion Gap 4 MEQ/L (5-15) 4 MEQ/L (5-15) Blood Urea Nitrogen 20 MG/DL (7-18) 21 MG/DL (7-18) Creatinine 0.53 MG/DL 0.56 MG/DL (0.50-1.00) (0.50-1.00) Estimat Glomerular Filtration 140 ML/MIN 131 ML/MIN Rate (>89) (>89) Random Glucose 145 MG/DL 257 MG/DL (74-106) (74-106) Calcium Level 11.6 MG/DL 10.8 MG/DL (8.5-10.1) (8.5-10.1) Protein Corrected Calcium 11.4 MG/DL (8.5-10.1) Magnesium Level 1.5 MG/DL 1.6 MG/DL (1.5-2.5) (1.5-2.5) Total Protein 7.5 GM/DL (6.4-8.2) White Blood Count 9.0 TH/MM3 (4.0-11.0) Red Blood Count 2.93 MIL/MM3 (4.00-5.30) Hemoglobin 7.9 GM/DL (11.6-15.3) Hematocrit 25.7 % (35.0-46.0) Mean Corpuscular Volume 87.8 FL (80.0-100.0) Mean Corpuscular Hemoglobin 27.2 PG (27.0-34.0) Mean Corpuscular Hemoglobin 31.0 % Concent (32.0-36.0) Red Cell Distribution Width 16.0 % (11.6-17.2) Platelet Count 260 TH/MM3 (150-450) Mean Platelet Volume 9.6 FL (7.0-11.0) Neutrophils (%) (Auto) 56.6 % (16.0-70.0) Lymphocytes (%) (Auto) 25.6 % (9.0-44.0) Monocytes (%) (Auto) 16.4 % (0.0-8.0) Eosinophils (%) (Auto) 1.0 % (0.0-4.0) Basophils (%) (Auto) 0.4 % (0.0-2.0) Neutrophils # (Auto) 5.1 TH/MM3 (1.8-7.7) Lymphocytes # (Auto) 2.3 TH/MM3 (1.0-4.8) Monocytes # (Auto) 1.5 TH/MM3 (0-0.9) Eosinophils # (Auto) 0.1 TH/MM3 (0-0.4) Basophils # (Auto) 0.0 TH/MM3 (0-0.2) CBC Comment DIFF FINAL Differential Comment Blood Gas Puncture Site LT RADIAL Blood Gas Patient Temperature 98.6 Blood Gas HCO3 38 mmol/L (22-26) Blood Gas Base Excess 12.3 mmol/L (-2-2) Blood Gas Oxygen Saturation 96 % (90-100) Arterial Blood pH 7.41 (7.380-7.420) Arterial Blood Partial 60 mmHg (38-42) Pressure CO2 Arterial Blood Partial 103 mmHg Pressure O2 (61-120) Arterial Blood Oxygen Content 11.7 Vol % (12.0-20.0) Arterial Blood 1.9 % (0-4) Carboxyhemoglobin Arterial Blood Methemoglobin 0.8 % (0-2) Blood Gas Hemoglobin 8.6 G/DL (12.0-16.0) Oxygen Delivery Device NASAL CANNULA Blood Gas Liter Flow 4 L/M Test 04/05/16 04/05/16 05:45 11:55 White Blood Count 10.1 TH/MM3 (4.0-11.0) Red Blood Count 2.95 MIL/MM3 (4.00-5.30) Hemoglobin 7.9 GM/DL (11.6-15.3) Hematocrit 26.3 % (35.0-46.0) Mean Corpuscular Volume 89.0 FL (80.0-100.0) Mean Corpuscular Hemoglobin 26.8 PG (27.0-34.0) Mean Corpuscular Hemoglobin 30.1 % Concent (32.0-36.0) Red Cell Distribution Width 15.7 % (11.6-17.2) Platelet Count 293 TH/MM3 (150-450) Mean Platelet Volume 10.5 FL (7.0-11.0) Neutrophils (%) (Auto) 59.3 % (16.0-70.0) Lymphocytes (%) (Auto) 25.9 % (9.0-44.0) Monocytes (%) (Auto) 13.0 % (0.0-8.0) Eosinophils (%) (Auto) 1.4 % (0.0-4.0) Basophils (%) (Auto) 0.4 % (0.0-2.0) Neutrophils # (Auto) 6.0 TH/MM3 (1.8-7.7) Lymphocytes # (Auto) 2.6 TH/MM3 (1.0-4.8) Monocytes # (Auto) 1.3 TH/MM3 (0-0.9) Eosinophils # (Auto) 0.1 TH/MM3 (0-0.4) Basophils # (Auto) 0.0 TH/MM3 (0-0.2) CBC Comment DIFF FINAL Differential Comment Sodium Level 143 MEQ/L (136-145) Potassium Level 3.1 MEQ/L (3.5-5.1) Chloride Level 100 MEQ/L (98-107) Carbon Dioxide Level 38.3 MEQ/L (21.0-32.0) Anion Gap 5 MEQ/L (5-15) Blood Urea Nitrogen 19 MG/DL (7-18) Creatinine 0.57 MG/DL (0.50-1.00) Estimat Glomerular Filtration 129 ML/MIN Rate (>89) Random Glucose 198 MG/DL (74-106) Calcium Level 10.5 MG/DL (8.5-10.1) Magnesium Level 1.5 MG/DL (1.5-2.5) Prothrombin Time 13.4 SEC (9.8-11.6) Prothromb Time International 1.2 RATIO Ratio Activated Partial 23.6 SEC Thromboplast Time (24.3-30.1) . Result Diagram: 04/05/16 0545 04/05/16 0545 Microbiology * No positive cultures since admission. . Imaging Last Impressions Abdomen/Pelvis CT 04/04/16 0000 Signed Impressions: Service Date/Time: Monday, April 04, 2016 17:57 - CONCLUSION: 1. Large pseudocyst as described above, given its size probably best treated with a cyst gastrostomy. Percutaneous drainage of the inferior portion of this may be necessary if this all doesn't drain through the cyst gastrostomy. 2. There is very little pancreatic tissue remaining. 3. Biliary stent is noted without intrahepatic biliary ductal dilatation. Mark Anthony Resendez MD FACR Chest X-Ray 04/01/16 0000 Signed Impressions: Service Date/Time: Friday, April 01, 2016 09:58 - CONCLUSION: Persistent perihilar vascular congestion with small lung volumes. Thai Reno MD Abdomen X-Ray 04/01/16 0000 Signed Impressions: Service Date/Time: Friday, April 01, 2016 10:02 - CONCLUSION: No evidence of obstruction. A feeding tube is in place. Its tip is in the distal stomach and a likely advanced into the duodenum if advanced further Thai Reno MD Lower Extremity Ultrasound 03/20/16 0000 Signed Impressions: Service Date/Time: Sunday, March 20, 2016 14:32 - CONCLUSION: No DVT of either lower extremity. Darrian Leary MD Head CT 03/14/16 0000 Signed Impressions: Service Date/Time: Monday, March 14, 2016 16:13 - CONCLUSION: Normal examination. Jere Toro MD Renal Ultrasound 03/13/16 0000 Signed Impressions: Service Date/Time: Sunday, March 13, 2016 16:39 - CONCLUSION: Unremarkable renal ultrasound. KSamuel Lundy MD GI Procedure 03/05/16 0000 Signed Impressions: Service Date/Time: Friday, March 04, 2016 23:02 - CONCLUSION: ERCP as above. Vidal Ye MD Gall Bladder Ultrasound 03/04/16 0000 Signed Impressions: Service Date/Time: Friday, March 04, 2016 19:36 - CONCLUSION: 1. Thick-walled gallbladder with some pericholecystic fluid and multiple gallstones in the region of the neck. The findings are suggestive of acute cholecystitis. Clinical correlation is recommended. 2. Fatty liver. 3. Minimal ascites within Polanco's pouch. 4. Poor visualization of the pancreas due to shadowing bowel gas. Odilon Butler MD Cholangiopancreatography MRI 03/04/16 0000 Signed Impressions: Service Date/Time: Friday, March 04, 2016 18:24 - CONCLUSION: 1. Extensive edema throughout the retroperitoneum and pancreas. No abscess or pseudocyst. 2. Tiny layering gallstones within the gallbladder. No discrete common bile duct stone. There is tapering of the common bile duct within the pancreatic head felt to be secondary to the edema within the pancreas. No discrete mass or choledocholithiasis. No intrahepatic or extrahepatic ductal dilatation. Maxwell Hsu Jr., MD . Procedures * MRCP * ERCP * PICC line . Assessment and Plan Disease Oriented Problem List: (1) Cholangitis Comment: Multiple gallstones. . (2) Pancreatitis, acute (3) Pseudocyst of pancreas Comment: Very large pseudocyst per CT of 04/04/16. . (4) Ventricular tachycardia (paroxysmal) (5) Severe sepsis with acute organ dysfunction Comment: cultures have been negative. . (6) HTN (hypertension) (7) Anasarca (8) Acute renal failure Comment: improving. . Symptom Scale: (1) Pain 0-10 Scale: Unable to quantify Comment: Patient is mostly nonverbal at time of my visit and unable to quantify / qualify pain. Nursing pain intensity levels mostly between 4 and 8. Pain has mostly been abdominal when she has been able to verbalize. . (2) Encephalopathy 0-10 Scale: Unable to quantify Comment: Nursing staff reports encephalopathy waxes and wanes. Patient was initially non-interactive with me but was able to say a few words at the end of my visit. Encephalopathy is probably multi-factorial but mostly metabolic. . Pertinent Non-Medical Issues Psychosocial: Normally lives with two granddaughters and a great-granddaughter. 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 Spiritual: Methodist. Sabianist/spirituality are a VERY important part of her life. Legal: Daughter says there are no advance directives. A sister claims she is the designated health care surrogate and says she has documentation. She indicated on 04/05/16 that she would be driving down with those documents. Ethical issues impacting care: Patient is currently incapacitated to make her own health care decision. Unclear whether she will regain capacity to make those decisions. . Important Contacts * Mariposa Dalton (daughter) -- [phone] * Ashley Taylor (sister) [phone] * Luz Maria Deon (granddaughter) H: [phone]; C: [phone] . Prognosis Patient's functional status prior to this hospitalization was good. 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 She has had a difficult hospital course with her cholangitis and pancreatitis and has not been able to turn the corner and improve. The CT of 04/04 revealed a very large pancreatic pseudocyst that is probably hindering recovery. She also appears to have a multi-factor encephalopathy. If there is successful pseudocyst drainage and patient is then able to improve , we may ultimately see return to home. If drainage cannot be done or there are further complications , prognosis may not be good. Even with improvement, the patient is already very deconditioned and debilitated and will face a challenging rehab with risk for infection and other complications. . . Code Status: Full Code Plan == Code status: FULL CODE == Decision making: Patient has some waxing and waning capacity but at time of my visit was certainly not able to make her own health care decisions. While incapacitated, her daughter -- Mariposa Dalton -- is the proxy health care decision maker. Nursing staff heard on 04/05/16 that a sister had called indicating that she was the designated health care surrogate and had paperwork to prove it and that she was personally going to bring in the paperwork. == Goals of medical treatment: Daughter has told me that the patient's goals/ preferences are aggressive. She would want everything done to try and get better including resuscitation attempts if necessary. == Pain: Patient is unable to quantify / qualify pain at time of my visit. When verbal, pain has mostly been abdominal. She also has some chonic bilateral hip pain s/p bilateral hip replacements. Nursing pain assessments show most pain levels in the 4-8 range. Her only opiate analgesic is currently Premier 5-325. Per nursing assessments, is appears to be adequate in reducing pain levels most of the time. No further recommendations at this time. == Encephalopathy: The cause of her waxing/waning mental status is unclear. Possibly delirium vs multi-factorial encephalopathy. Treating the underlying medical problem is the most important approach, but may want to consider low dose haloperidol (e.g. 0.5 mg per feeding tube q 8 hours ATC) if this appears to be an agitated delirium. == Dyspnea: Currently responding to nasal cannula 02 and prn nebs. No further recommendations at this time. == Palliative care will follow to assist with symptom management and to further clarify goals of medical treatment as the clinical course evolves. . Attestation To help prompt me to consider important information that might be impacting today's encounter and assessment, information from prior notes written by myself or my colleagues may have been "brought forward" into today's note. My signature on this note, however, is an attestation that I personally performed the exam, history, and/or decision-making noted today, and, unless otherwise indicated, the interactions with patient, family, and staff as well as the review of records all occurred today. I also attest that the listed assessment and stated plan reflect my best clinical judgment today based on the combination of historical information, prior notes, and today's exam/ interactions. When time spent is documented, it refers only to time spent today by the signer, or if indicated, combined time spent today by collaborating physician/nurse practitioner. . Samuel Reid MD Apr 05, 2016 13:28
[2016-04-05] MEDS ORDERED: POTASSIUM CL 40 MEQ/30 ML LIQ UDC DOB ONE (13:45)
--- NOTE | 2016-04-05 14:22 | HHI.GIFU ---
Subjective Remarks Resting in bed. Very lethargic. When asked if she has abdominal pain, she states yes, but does not further elaborate, she does not seem to have significant tenderness. (Nakita Crowe) Objective Vitals I&O Vital Signs Date Time Temp Pulse Resp B/P Pulse Ox O2 Delivery O2 Flow Rate FiO2 04/05/16 14:00 89 04/05/16 12:00 98.0 82 27 150/68 94 04/05/16 12:00 89 04/05/16 10:00 81 04/05/16 08:15 97 Nasal Cannula 2.00 04/05/16 08:00 79 04/05/16 08:00 98.0 79 18 143/65 97 04/05/16 07:00 Nasal Cannula 3.00 04/05/16 06:00 78 04/05/16 04:00 93 04/05/16 04:00 99.1 91 22 140/62 95 04/05/16 02:00 90 04/05/16 00:00 85 04/05/16 00:00 99.3 93 23 149/67 95 04/04/16 22:00 90 04/04/16 20:35 96 Nasal Cannula 2.00 04/04/16 20:00 87 04/04/16 20:00 99.0 87 25 148/65 98 04/04/16 19:00 98 Nasal Cannula 3.00 04/04/16 18:00 90 04/04/16 16:00 99.1 80 25 155/72 97 04/04/16 16:00 80 I/O 04/04/16 04/04/16 04/04/16 04/05/16 04/05/16 04/05/16 07:00 15:00 23:00 07:00 15:00 23:00 Intake Total 933 ml 439 ml 755 ml 659 ml 1083 ml Output Total 350 ml 1750 ml 1700 ml 1100 ml 1700 ml Balance 583 ml -1311 ml -945 ml -441 ml -617 ml IV Total 485 ml 439 ml 335 ml 324 ml 654 ml Tube Feeding 348 ml 320 ml 335 ml 329 ml Other 100 ml 100 ml 100 ml Output Urine Total 350 ml 1750 ml 1300 ml 900 ml 1400 ml Stool Total 400 ml 200 ml 300 ml # Bowel Movements 0 2 2 2 Laboratory Laboratory Tests Test 04/04/16 04/05/16 04/05/16 19:18 05:45 11:55 Blood Gas Puncture Site LT RADIAL Blood Gas Patient Temperature 98.6 Blood Gas HCO3 38 Blood Gas Base Excess 12.3 Blood Gas Oxygen Saturation 96 Arterial Blood pH 7.41 Arterial Blood Partial 60 Pressure CO2 Arterial Blood Partial 103 Pressure O2 Arterial Blood Oxygen Content 11.7 Arterial Blood 1.9 Carboxyhemoglobin Arterial Blood Methemoglobin 0.8 Blood Gas Hemoglobin 8.6 Oxygen Delivery Device NASAL CANNULA Blood Gas Liter Flow 4 White Blood Count 10.1 Red Blood Count 2.95 Hemoglobin 7.9 Hematocrit 26.3 Mean Corpuscular Volume 89.0 Mean Corpuscular Hemoglobin 26.8 Mean Corpuscular Hemoglobin 30.1 Concent Red Cell Distribution Width 15.7 Platelet Count 293 Mean Platelet Volume 10.5 Neutrophils (%) (Auto) 59.3 Lymphocytes (%) (Auto) 25.9 Monocytes (%) (Auto) 13.0 Eosinophils (%) (Auto) 1.4 Basophils (%) (Auto) 0.4 Neutrophils # (Auto) 6.0 Lymphocytes # (Auto) 2.6 Monocytes # (Auto) 1.3 Eosinophils # (Auto) 0.1 Basophils # (Auto) 0.0 CBC Comment DIFF FINAL Differential Comment Sodium Level 143 Potassium Level 3.1 Chloride Level 100 Carbon Dioxide Level 38.3 Anion Gap 5 Blood Urea Nitrogen 19 Creatinine 0.57 Estimat Glomerular Filtration 129 Rate Random Glucose 198 Calcium Level 10.5 Magnesium Level 1.5 Prothrombin Time 13.4 Prothromb Time International 1.2 Ratio Activated Partial 23.6 Thromboplast Time Imaging Last Impressions Abdomen/Pelvis CT 04/04/16 0000 Signed Impressions: Service Date/Time: Monday, April 04, 2016 17:57 - CONCLUSION: 1. Large pseudocyst as described above, given its size probably best treated with a cyst gastrostomy. Percutaneous drainage of the inferior portion of this may be necessary if this all doesn't drain through the cyst gastrostomy. 2. There is very little pancreatic tissue remaining. 3. Biliary stent is noted without intrahepatic biliary ductal dilatation. Mark Anthony Resendez MD FACR Chest X-Ray 04/01/16 0000 Signed Impressions: Service Date/Time: Friday, April 01, 2016 09:58 - CONCLUSION: Persistent perihilar vascular congestion with small lung volumes. Thai Reno MD Abdomen X-Ray 04/01/16 0000 Signed Impressions: Service Date/Time: Friday, April 01, 2016 10:02 - CONCLUSION: No evidence of obstruction. A feeding tube is in place. Its tip is in the distal stomach and a likely advanced into the duodenum if advanced further Thai Reno MD Lower Extremity Ultrasound 03/20/16 0000 Signed Impressions: Service Date/Time: Sunday, March 20, 2016 14:32 - CONCLUSION: No DVT of either lower extremity. Darrian Leary MD Head CT 03/14/16 0000 Signed Impressions: Service Date/Time: Monday, March 14, 2016 16:13 - CONCLUSION: Normal examination. Jere Toro MD Renal Ultrasound 03/13/16 0000 Signed Impressions: Service Date/Time: Sunday, March 13, 2016 16:39 - CONCLUSION: Unremarkable renal ultrasound. KSamuel Lundy MD GI Procedure 03/05/16 0000 Signed Impressions: Service Date/Time: Friday, March 04, 2016 23:02 - CONCLUSION: ERCP as above. Vidal Ye MD Gall Bladder Ultrasound 03/04/16 0000 Signed Impressions: Service Date/Time: Friday, March 04, 2016 19:36 - CONCLUSION: 1. Thick-walled gallbladder with some pericholecystic fluid and multiple gallstones in the region of the neck. The findings are suggestive of acute cholecystitis. Clinical correlation is recommended. 2. Fatty liver. 3. Minimal ascites within Polanco's pouch. 4. Poor visualization of the pancreas due to shadowing bowel gas. Odilon Butler MD Cholangiopancreatography MRI 03/04/16 0000 Signed Impressions: Service Date/Time: Friday, March 04, 2016 18:24 - CONCLUSION: 1. Extensive edema throughout the retroperitoneum and pancreas. No abscess or pseudocyst. 2. Tiny layering gallstones within the gallbladder. No discrete common bile duct stone. There is tapering of the common bile duct within the pancreatic head felt to be secondary to the edema within the pancreas. No discrete mass or choledocholithiasis. No intrahepatic or extrahepatic ductal dilatation. Maxwell Hsu Jr., MD Physical Exam NECK: Neck is supple, no JVD, no lymphadenopathy. CHEST: Tachypneic, labored CARDIAC: RRR ABDOMEN: Soft, distended, diffuse tenderness, hypoactive bowel sounds. EXTREMITIES: Generalized edema. SKIN: Lethargic, non verbal (Nakita Crowe) Assessment and Plan Plan ASSESSMENT: - Severe acute gallstone pancreatitis. S/P ERCP (03/04/16)-----> stricture in the distal common bile duct, normal intrahepatic ducts, normal pancreatic ducts , patent cystic duct. S/P stent placement. Triglycerides 117. IgG [address] scan ()-----> 1. Large pseudocyst as described above, given its size probably best treated with a cyst gastrostomy. Percutaneous drainage of the inferior portion of this may be necessary if this all doesn't drain through the cyst gastrostomy. 2. There is very little pancreatic tissue remaining. 3. Biliary stent is noted without intrahepatic biliary ductal dilatation. CT scan 03/15 with diffuse inflammatory changes surrounding the entire pancreas characteristic of pancreatitis. No new or significant changes are demonstrated compared to the prior study. Improving. WBC improving. TPN off. Has puree diet but has poor po intake. Rpt CT scan with large pseudocyst 19.6 x 4.8 cm. EUS not available at this facility for marsupialization. D/W Dr. Perez/Chandra , they feel that this cyst is mature and will attempt drainage by IR. Will make NPO. - Severe diffuse ileus. RESOLVED. Currently on Colace. + BM. - Biliary obstruction/cholangitis secondary to pancreatic head edema. S/P ERCP (03/04/16)-----> stricture in the distal common bile duct, normal intrahepatic ducts, normal pancreatic ducts, patent cystic duct. S/P stent placement. LFTs are stable. - Acute cholecystitis. S/P GS evaluation. - Acute sepsis, Leukocytosis. Resolved, Abx per ID. - Acute renal failure. Resolved. Off HD. - Resp. Insuff. Resp. shallow. Diminished breath sounds. - Anemia. H/H 7.9/26.3 Recommendations - NPO - Abx per ID - S/P GS eval - IR consult for drainage of large pseudocyst- d/w Dr. Perez/Chandra- feel this is mature and will attempt drainage - Supportive care - Poor prognosis - Patient seen and examined by Dr. Lucero and myself and this note is written on his behalf. (Nakita Crowe) Physician Comments Seen and examined with Ms. Sebastien CORONADO, Ct reviewed with pt. AFter much discussion between drs. Lowe/Andria/madina and myself , the pt. will be transferred to [facility] for EUS guided drainage of Pseudocyst on sunday. IR drainage cancelled.. (Oscar Lucero MD) Nakita Crowe Apr 05, 2016 14:22 Oscar Lucero MD Apr 05, 2016 16:23
--- NOTE | 2016-04-05 16:34 | HHI.CCPN ---
Subjective Remarks/Hospital Course > 48 hour history of epigastric pain, vomiting. GB US reveals cholecystitis with stones in neck. MRCP - pancreatitis, ducts not dilated. Received stent into a bile duct secondary to stricture due to pancreatic head edema. [facility] re -consulted today 03/12 due to patient's tachypnea and abdominal distention. Reconsulted 04/04: Continued lack of improvement. Appears to have developed contraction alkalosis from chronic loop diuretics. CT shows massive pancreatic pseudocyst which will require drainage. 04/05: GI evaluating options for drainage of pancreatic pseudocyst. Typically pseudocyst will be scarred to the posterior wall of the stomach - IR will attempt to drain endoscopically. Objective Vital Signs Date Time Temp Pulse Resp B/P Pulse Ox O2 Delivery O2 Flow Rate FiO2 04/05/16 14:00 89 04/05/16 12:00 98.0 27 150/68 94 04/05/16 08:15 Nasal Cannula 2.00 Intake and Output 04/04/16 04/04/16 04/05/16 08:00 16:00 00:00 Intake Total 933 ml 439 ml 755 ml Output Total 350 ml 1750 ml 1700 ml Balance 583 ml -1311 ml -945 ml Result Diagram: 04/05/16 0545 04/05/16 0545 Other Results Laboratory Tests Test 04/04/16 19:18 Blood Gas Puncture Site LT RADIAL Blood Gas Patient Temperature 98.6 Blood Gas HCO3 38 mmol/L (22-26) Blood Gas Base Excess 12.3 mmol/L (-2-2) Blood Gas Oxygen Saturation 96 % (90-100) Arterial Blood pH 7.41 (7.380-7.420) Arterial Blood Partial 60 mmHg (38-42) Pressure CO2 Arterial Blood Partial 103 mmHg Pressure O2 (61-120) Arterial Blood Oxygen Content 11.7 Vol % (12.0-20.0) Arterial Blood 1.9 % (0-4) Carboxyhemoglobin Arterial Blood Methemoglobin 0.8 % (0-2) Blood Gas Hemoglobin 8.6 G/DL (12.0-16.0) Oxygen Delivery Device NASAL CANNULA Blood Gas Liter Flow 4 L/M Imaging Last Impressions Chest X-Ray 03/26/16 0600 Signed Impressions: Service Date/Time: Saturday, March 26, 2016 05:15 - CONCLUSION: Stable bilateral perihilar infiltrates and left lower lobe consolidation. Maxwell Choi MD Abdomen X-Ray 03/26/16 0600 Signed Impressions: Service Date/Time: Saturday, March 26, 2016 05:18 - CONCLUSION: Improving distended loops of bowel. The metallic tip feeding tube has changed position and is now projected in the stomach. Maxwell Choi MD Lower Extremity Ultrasound 03/20/16 0000 Signed Impressions: Service Date/Time: Sunday, March 20, 2016 14:32 - CONCLUSION: No DVT of either lower extremity. Darrian Leary MD Abdomen/Pelvis CT 03/15/16 0000 Signed Impressions: Service Date/Time: Tuesday, March 15, 2016 15:26 - CONCLUSION: 1. Compared to the prior exam, the previously noted gas bubbles in the wall of the cecum have resolved. 2. Otherwise, no other new or significant changes compared to the prior study. Wilver Bond MD Head CT 03/14/16 0000 Signed Impressions: Service Date/Time: Monday, March 14, 2016 16:13 - CONCLUSION: Normal examination. Jere Toro MD Renal Ultrasound 03/13/16 0000 Signed Impressions: Service Date/Time: Sunday, March 13, 2016 16:39 - CONCLUSION: Unremarkable renal ultrasound. K. Stephen Lundy MD GI Procedure 03/05/16 0000 Signed Impressions: Service Date/Time: Friday, March 04, 2016 23:02 - CONCLUSION: ERCP as above. Vidal Ye MD Gall Bladder Ultrasound 03/04/16 0000 Signed Impressions: Service Date/Time: Friday, March 04, 2016 19:36 - CONCLUSION: 1. Thick-walled gallbladder with some pericholecystic fluid and multiple gallstones in the region of the neck. The findings are suggestive of acute cholecystitis. Clinical correlation is recommended. 2. Fatty liver. 3. Minimal ascites within Polanco's pouch. 4. Poor visualization of the pancreas due to shadowing bowel gas. Odilon Butler MD Cholangiopancreatography MRI 03/04/16 0000 Signed Impressions: Service Date/Time: Friday, March 04, 2016 18:24 - CONCLUSION: 1. Extensive edema throughout the retroperitoneum and pancreas. No abscess or pseudocyst. 2. Tiny layering gallstones within the gallbladder. No discrete common bile duct stone. There is tapering of the common bile duct within the pancreatic head felt to be secondary to the edema within the pancreas. No discrete mass or choledocholithiasis. No intrahepatic or extrahepatic ductal dilatation. Maxwell Hsu Jr., MD Objective Remarks GENERAL: 66-year-old AA female, morbidly obese, currently resting in bed in no acute distress SKIN: Warm and dry. No rash HEAD: Atraumatic. Normocephalic. NECK: Trachea midline. Airway widely patent CARDIOVASCULAR: Regular rate and rhythm. NL S1, S2. Without murmur. No JVD. RESPIRATORY: Distant breath sounds. Good bilateral BS. Generally clear. GASTROINTESTINAL: Abdomen obese. Minimally tender to palpation in all quadrants. Active bowel sounds. MUSCULOSKELETAL: Extremities with 1+ bilateral lower extremity pedal edema/ anasarca-like improved since admission. NEUROLOGICAL: Tracks with eyes. Nods head. Date of Insertion: Mar 22, 2016 Line: PICC Side: Left Location: Antecubital A/P Problem List: (1) Severe sepsis with acute organ dysfunction ICD Code: A41.9 Status: Acute (2) Cholangitis ICD Code: K83.0 Status: Acute (3) Hypertensive urgency ICD Code: I16.0 Status: Acute Assessment and Plan Neuro/Psych: Pain management for acute pancreatitis Acetaminophen for fever [place] 5/325 one every 4 hours/ morphine 2 mg every 3 hours hours when necessary for pain management CV: Severe sepsis from cholangitis and pancreatitis Hypertension by history Dyslipidemia - Noted elevated HDL/LDL/total cholesterol - triglycerides within normal limits Consider statin when appropriate once LFTs normalize - 2-D echo EF 55 - 60%. Trace MR. ANNIE 39 mmHg Resp: Acute respiratory insufficiency likely secondary to volume overload - Nasal cannula to maintain saturations greater than equal to 92%. - Incentive spirometry while awake --Chest x-ray 03/26 with left lower lobe infiltrate GI: Status post ERCP/placement of stenting, bile duct secondary to stenosis Acute necrotizing Pancreatitis Possible pneumatosis intestinalis Transaminitis Hypo-albuminemia CT abdomen/pelvis 03/12 revealed multiple gallstones/worsening pancreatitis and possible pneumatosis intestinalis involving the cecum and the ascending colon Dr. Ceballos/general surgery following Discussed with Dr. Moulton yesterday. Agreed with hemodialysis and attempt to remove extra cellular fluid while maintaining intravascular volume. Difficult situation 14-24 intra-abdominal bladder pressures - Dr. Lucero/GI performed ERCP 03/04 with stent placement, distal common bile duct 8.5 [place]ian 7 cm secondary to stricture - Ultrasound revealed thickening in the gallbladder with pericholecystic fluid. Tiny gallstones noted. 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 Renal: LOI - resolved - Creatinine appears to be stabilizing - Avoid nephrotoxic drugs. Noted lisinopril/hctz held - Nephrology consultation following when necessary as needed -Negative urine eosinophils renal ultrasound without obstruction - Follow BMP in a.m. Heme/Onc: History of breast cancer status post right mastectomy Leukocytosis Normocytic anemia CBC stable around 8 Currently holding Letrozole 2.5 mg daily with elevated LFTs. Resume when clinically indicated ID: Possible necrotizing pancreatitis/pneumatosis intestinalis ID consult appreciated to see today Pertinent cultures 03/04 - urine culture - negative 03/04 - blood cultures 2 - negative 03/07 - blood cultures 2 - negative 03/13 - blood cultures 2 -no growth 03/15 - urine culture -no growth /2 - blood cultures 2 - no growth 1/2 - urine cultures - negative FEN: Hypercalcemia Hypopotassemia Hypernatremia Replace electrolytes as clinically indicated 40 mEq potassium chloride 1. Recheck Currently on Nepro at 40 cc an hour general surgery Currently on free water 250 cc every 4 hours Checking PTH, PTH RP, and vitamin D analogs and SPEP. Access -PICC Prophylaxis - GI - Protonix - DVT - SCD/heparin Overall impression: Nutritionally depleted, large pseudocyst. May improve clinically after drainage. Plan for IR approach in a.m. Carl Maxwell MD Apr 05, 2016 16:34 Carl Maxwell MD Apr 05, 2016 16:34
--- NOTE | 2016-04-05 18:44 | HHI.IDPN ---
Subjective Subjective Remarks Patient known to me. Reviewed chart. Now off Hemodialysis and pressors. Still appears sick Less anasarca. UO better. No fever Normal WBC. Diarrhea x 1 episode per RN. Cdiff negative on 03/28/16. If persistent positive diarrhea will consider repeating Cdiff PCR. d/w Antibiotics Meropenem IV Micafungin IV Lines Line sites with no e/o infection Past Medical History reviewed. Allergies: Coded Allergies: No Known Allergies (Verified , 02/18/15) Objective . Vital Signs Date Time Temp Pulse Resp B/P Pulse Ox O2 Delivery O2 Flow Rate FiO2 04/05/16 18:00 89 04/05/16 16:00 98 04/05/16 16:00 98.0 84 22 144/64 98 04/05/16 14:00 89 04/05/16 12:00 98.0 82 27 150/68 94 04/05/16 12:00 89 04/05/16 10:00 81 04/05/16 08:15 97 Nasal Cannula 2.00 04/05/16 08:00 79 04/05/16 08:00 98.0 79 18 143/65 97 04/05/16 07:00 Nasal Cannula 3.00 04/05/16 06:00 78 04/05/16 04:00 93 04/05/16 04:00 99.1 91 22 140/62 95 04/05/16 02:00 90 04/05/16 00:00 85 04/05/16 00:00 99.3 93 23 149/67 95 04/04/16 22:00 90 04/04/16 20:35 96 Nasal Cannula 2.00 04/04/16 20:00 87 04/04/16 20:00 99.0 87 25 148/65 98 04/04/16 19:00 98 Nasal Cannula 3.00 04/04/16 04/04/16 04/05/16 15:00 23:00 07:00 Intake Total 439 ml 755 ml 659 ml Output Total 1750 ml 1700 ml 1100 ml Balance -1311 ml -945 ml -441 ml IV Total 439 ml 335 ml 324 ml Tube Feeding 320 ml 335 ml Other 100 ml Output Urine Total 1750 ml 1300 ml 900 ml Stool Total 400 ml 200 ml # Bowel Movements 2 2 . Laboratory Tests Test 04/04/16 04/05/16 04:35 05:45 White Blood Count 9.0 TH/MM3 10.1 TH/MM3 Red Blood Count 2.93 MIL/MM3 2.95 MIL/MM3 Hemoglobin 7.9 GM/DL 7.9 GM/DL Hematocrit 25.7 % 26.3 % Mean Corpuscular Volume 87.8 FL 89.0 FL Mean Corpuscular Hemoglobin 27.2 PG 26.8 PG Mean Corpuscular Hemoglobin 31.0 % 30.1 % Concent Red Cell Distribution Width 16.0 % 15.7 % Platelet Count 260 TH/MM3 293 TH/MM3 Mean Platelet Volume 9.6 FL 10.5 FL Neutrophils (%) (Auto) 56.6 % 59.3 % Lymphocytes (%) (Auto) 25.6 % 25.9 % Monocytes (%) (Auto) 16.4 % 13.0 % Eosinophils (%) (Auto) 1.0 % 1.4 % Basophils (%) (Auto) 0.4 % 0.4 % Neutrophils # (Auto) 5.1 TH/MM3 6.0 TH/MM3 Lymphocytes # (Auto) 2.3 TH/MM3 2.6 TH/MM3 Monocytes # (Auto) 1.5 TH/MM3 1.3 TH/MM3 Eosinophils # (Auto) 0.1 TH/MM3 0.1 TH/MM3 Basophils # (Auto) 0.0 TH/MM3 0.0 TH/MM3 CBC Comment DIFF FINAL DIFF FINAL Differential Comment Laboratory Tests Test 04/04/16 04/05/16 04:35 05:45 Sodium Level 144 MEQ/L 143 MEQ/L Potassium Level 3.6 MEQ/L 3.1 MEQ/L Chloride Level 102 MEQ/L 100 MEQ/L Carbon Dioxide Level 37.6 MEQ/L 38.3 MEQ/L Anion Gap 4 MEQ/L 5 MEQ/L Blood Urea Nitrogen 21 MG/DL 19 MG/DL Creatinine 0.56 MG/DL 0.57 MG/DL Estimat Glomerular Filtration 131 ML/MIN 129 ML/MIN Rate Random Glucose 257 MG/DL 198 MG/DL Calcium Level 10.8 MG/DL 10.5 MG/DL Magnesium Level 1.6 MG/DL 1.5 MG/DL Microbiology Date/Time Procedure Status Source Growth 04/05/16 14:10 Gram Stain Received Fluid Pancreatic Fluid Pending 04/05/16 14:10 Body Fluid Culture Received Fluid Pancreatic Fluid Pending 04/05/16 14:10 Acid Fast Stain Ordered Fluid Pancreatic Fluid Pending 04/05/16 14:10 Mycobacterial Culture Ordered Fluid Pancreatic Fluid Pending 04/05/16 14:10 Fungal Smear Ordered Fluid Pancreatic Fluid Pending 04/05/16 14:10 Fungal Culture Ordered Fluid Pancreatic Fluid Pending Imaging Last Impressions Chest X-Ray 03/28/16 0600 Signed Impressions: Service Date/Time: Monday, March 28, 2016 05:19 - CONCLUSION: Cardiomegaly with bilateral perihilar opacities and left lower lobe density. Wilian Rojas MD Abdomen X-Ray 03/26/16 0600 Signed Impressions: Service Date/Time: Saturday, March 26, 2016 05:18 - CONCLUSION: Improving distended loops of bowel. The metallic tip feeding tube has changed position and is now projected in the stomach. Maxwell Choi MD Lower Extremity Ultrasound 03/20/16 0000 Signed Impressions: Service Date/Time: Sunday, March 20, 2016 14:32 - CONCLUSION: No DVT of either lower extremity. Darrian Leary MD Abdomen/Pelvis CT 03/15/16 0000 Signed Impressions: Service Date/Time: Tuesday, March 15, 2016 15:26 - CONCLUSION: 1. Compared to the prior exam, the previously noted gas bubbles in the wall of the cecum have resolved. 2. Otherwise, no other new or significant changes compared to the prior study. Wilver Bond MD Head CT 03/14/16 0000 Signed Impressions: Service Date/Time: Monday, March 14, 2016 16:13 - CONCLUSION: Normal examination. Jere Toro MD Renal Ultrasound 03/13/16 0000 Signed Impressions: Service Date/Time: Sunday, March 13, 2016 16:39 - CONCLUSION: Unremarkable renal ultrasound. K. Stephen Lundy MD GI Procedure 03/05/16 0000 Signed Impressions: Service Date/Time: Friday, March 04, 2016 23:02 - CONCLUSION: ERCP as above. Vidal Ye MD Gall Bladder Ultrasound 03/04/16 0000 Signed Impressions: Service Date/Time: Friday, March 04, 2016 19:36 - CONCLUSION: 1. Thick-walled gallbladder with some pericholecystic fluid and multiple gallstones in the region of the neck. The findings are suggestive of acute cholecystitis. Clinical correlation is recommended. 2. Fatty liver. 3. Minimal ascites within Polanco's pouch. 4. Poor visualization of the pancreas due to shadowing bowel gas. Odilon Butler MD Cholangiopancreatography MRI 03/04/16 0000 Signed Impressions: Service Date/Time: Friday, March 04, 2016 18:24 - CONCLUSION: 1. Extensive edema throughout the retroperitoneum and pancreas. No abscess or pseudocyst. 2. Tiny layering gallstones within the gallbladder. No discrete common bile duct stone. There is tapering of the common bile duct within the pancreatic head felt to be secondary to the edema within the pancreas. No discrete mass or choledocholithiasis. No intrahepatic or extrahepatic ductal dilatation. Maxwell Hsu Jr., MD Physical Exam GENERAL: Obese AAF patient, in no distress. SKIN: No rashes, ecchymoses or lesions. Cool and dry. HEAD: Atraumatic. Normocephalic. No temporal or scalp tenderness. EYES: Pupils equal round and reactive. No scleral icterus. ENT: Oral mucosae moist NECK: Trachea midline. Supple, nontender, no meningeal signs. CARDIOVASCULAR: HS audible. No murmur. Well perfused extremities RESPIRATORY: Clear to auscultation. Breath sounds equal bilaterally but decreased in the bases. GASTROINTESTINAL: Abdomen less tense , + tenderness in RUQ and epigastric region , distended, abd wall edema noted. BS audible MUSCULOSKELETAL: Generalized anasarca noted, improved NEUROLOGICAL: Lethargic Assessment & Plan Remarks Acute Severe Pancreatitis with hemorrhage. Pancreatic Pseudocyst. Acute Pneumatosis Intestinalis vs anasarca related. Better. Acute cholangitis Clinically appears to have slow improvement All blood clx remain negative Leukocytosis - resolved Diarrhea , C.diff negative Recs: Continue Meropenem IV for now. Will revisit after EUS procedure decisions made. DC Micafungin IV repeat blood clx if cont to have fever d/w Radiologist , and : multiple discussions. Agree that EUS guided gastrocystostomy would be a better approach than percutaneous drainage if cyst wall deemed close enough or thick enough for this procedure. Dw and . dSamuelw . Attempts being made to see if this is possible at this stage and if she needs transfer to [facility] or other centers where this is performed. Entered orders for cyst cultures if this is attempted. Time spent in excess of 40 mins, critical thinking and decision making. Cely Ayers MD Apr 05, 2016 18:44
[2016-04-05 20:06] LABS: C. DIFF EPI 027 PRESUMPTIVE NEGATIVE (NEGATIVE); C. DIFF TOXIN PCR NEGATIVE (NEGATIVE)
[2016-04-05] MEDS: LOPERAMIDE HCL SOLN 2 MG/10 ML UDC PO SCH (21:35)
[2016-04-06] VITALS (10 sets, daily range): BP systolic 126–167; BP diastolic 61–75; PULSE 75–98; RESP 19–32; TEMP 98.4–100.2; O2SAT 95–99
[2016-04-06] MEDS: FREE WATER G-TUBE SCH ×5 (01:54→16:00)
[2016-04-06] MEDS: INSULIN NovoLIN REGULAR SUPPLEMENTAL SCALE SQ SCH ×5 (01:54→17:30)
[2016-04-06] MEDS: MEROPENEM INJ 1,000 MG in SODIUM CHLORIDE 0.9% INJ 100 ML IV SCH ×3 (02:00→17:43)
--- NOTE | 2016-04-06 03:44 | RADRPT ---
EXAM DATE/TIME: 04/06/2016 03:13 [place] COMPARISON: CHEST SINGLE AP, April 01, 2016, 9:58. INDICATIONS : Shortness of breath. MEDICAL HISTORY : Hypertension. Chronic obstructive pulmonary disease. Carcinoma, breast. SURGICAL HISTORY : Mastectomy, right. ENCOUNTER: Subsequent ACUITY: 2 months PAIN SCORE: Non-responsive. LOCATION: Bilateral chest FINDINGS: Weighted feeding tube descends to the stomach. Left arm PICC line is present in satisfactory position . There has been improvement in aeration with decrease in right lung infiltrate. There is persistent consolidative change at the left lung base. CONCLUSION: Slight interval improvement in aeration Darrian Engel MD on April 06, 2016 at 3:42 Board Certified Radiologist. This report was verified electronically.
[2016-04-06] MEDS: HEPARIN SODIUM - SQ 10,000 UNITS/ML VIAL SQ SCH ×2 (06:00→12:54)
[2016-04-06] MEDS: ISOSORBIDE DINITRATE 10 MG TAB PO SCH ×2 (06:44→12:54)
[2016-04-06] MEDS: CHLORHEXIDINE GLUCONATE 2 % 1 PACK (2 CLOTHS) TOP SCH (06:44)
[2016-04-06] MEDS: hydrALAZINE HCL 10 MG TAB PO SCH ×2 (06:44→12:54)
[2016-04-06] MEDS: METOPROLOL TARTRATE 50 MG TAB PO SCH ×2 (06:45→12:54)
[2016-04-06 07:01] LABS: POTASSIUM 3.5 MEQ/L (3.5-5.1)
[2016-04-06] MEDS: DOCUSATE SODIUM 100 MG CAP PO SCH (09:00)
[2016-04-06] MEDS: SODIUM CHLORIDE 0.9% FLUSH 5 ML FLUSH IV FLUSH SCH (09:00)
[2016-04-06] MEDS: SODIUM CHLORIDE 0.9% FLUSH 5 ML FLUSH IVF SCH ×2 (09:00→09:08)
[2016-04-06] MEDS: LOPERAMIDE HCL SOLN 2 MG/10 ML UDC PO SCH (09:00)
[2016-04-06] MEDS: FUROSEMIDE 40 MG/4 ML VIAL IV PUSH SCH ×2 (09:09→17:43)
[2016-04-06] MEDS: DEXTROSE 5% IN WATE 1000ML INJ 1,000 ML IV SCH (09:17)
[2016-04-06] MEDS: PANTOPRAZOLE SODIUM 40 MG VIAL IV SCH (09:21)
[2016-04-06] MEDS: POTASSIUM CL 40 MEQ/30 ML LIQ UDC PO SCH (09:22)
--- NOTE | 2016-04-06 11:02 | HHI.GIFU ---
Subjective Remarks Patient is resting in bed, still non verbal, she is NPO for possible drainage of large pseudocyst by IR (Otis Barreto) Objective Vitals I&O Vital Signs Date Time Temp Pulse Resp B/P Pulse Ox O2 Delivery O2 Flow Rate FiO2 04/06/16 10:00 80 04/06/16 08:00 96 Nasal Cannula 3.00 04/06/16 08:00 78 04/06/16 08:00 98.4 78 19 126/61 97 04/06/16 06:00 78 04/06/16 04:00 98.5 84 22 167/73 99 04/06/16 04:00 84 04/06/16 02:00 86 04/06/16 00:00 98 04/06/16 00:00 100.2 98 32 166/75 95 04/05/16 22:00 93 Nasal Cannula 2.00 04/05/16 22:00 90 04/05/16 20:00 98.4 90 25 158/71 96 04/05/16 20:00 90 04/05/16 19:00 96 Nasal Cannula 3.00 04/05/16 18:00 89 04/05/16 16:00 98 04/05/16 16:00 98.0 84 22 144/64 98 04/05/16 14:00 89 04/05/16 12:00 98.0 82 27 150/68 94 04/05/16 12:00 89 I/O 04/05/16 04/05/16 04/05/16 04/06/16 04/06/16 04/06/16 07:00 15:00 23:00 07:00 15:00 23:00 Intake Total 659 ml 1083 ml 100 ml 525 ml Output Total 1100 ml 1700 ml 1350 ml 450 ml Balance -441 ml -617 ml -1250 ml 75 ml IV Total 324 ml 654 ml 425 ml Tube Feeding 335 ml 329 ml 0 ml 0 ml Tube Irrigant 50 ml Other 100 ml 50 ml 100 ml Output Urine Total 900 ml 1400 ml 1350 ml 450 ml Stool Total 200 ml 300 ml # Bowel Movements 2 1 0 Laboratory Laboratory Tests Test 04/05/16 04/05/16 04/06/16 11:55 17:00 05:53 Prothrombin Time 13.4 Prothromb Time International 1.2 Ratio Activated Partial 23.6 Thromboplast Time Stool C. difficile Toxin (PCR) NEGATIVE Stl C. difficile Toxin PRESUMPTIVE Epiderm 027 NEGATIVE Sodium Level 143 Potassium Level 3.5 Chloride Level 102 Carbon Dioxide Level 36.0 Anion Gap 5 Blood Urea Nitrogen 16 Creatinine 0.44 Estimat Glomerular Filtration 174 Rate Random Glucose 128 Calcium Level 10.4 Date/Time Procedure Status Source Growth 04/05/16 14:10 Cancelled Fluid Pancreatic Fluid 04/05/16 14:10 Cancelled Fluid Pancreatic Fluid 04/05/16 14:10 Cancelled Fluid Pancreatic Fluid Imaging Last Impressions Chest X-Ray 04/06/16 0800 Signed Impressions: Service Date/Time: March 03:13 - CONCLUSION: Slight interval improvement in aeration Darrian Engel MD Abdomen/Pelvis CT 04/04/16 0000 Signed Impressions: Service Date/Time: Monday, April 04, 2016 17:57 - CONCLUSION: 1. Large pseudocyst as described above, given its size probably best treated with a cyst gastrostomy. Percutaneous drainage of the inferior portion of this may be necessary if this all doesn't drain through the cyst gastrostomy. 2. There is very little pancreatic tissue remaining. 3. Biliary stent is noted without intrahepatic biliary ductal dilatation. Mark Anthony Resendez MD FACR Abdomen X-Ray 04/01/16 0000 Signed Impressions: Service Date/Time: Friday, April 01, 2016 10:02 - CONCLUSION: No evidence of obstruction. A feeding tube is in place. Its tip is in the distal stomach and a likely advanced into the duodenum if advanced further Thai Reno MD Lower Extremity Ultrasound 03/20/16 0000 Signed Impressions: Service Date/Time: Sunday, March 20, 2016 14:32 - CONCLUSION: No DVT of either lower extremity. Darrian Leary MD Head CT 03/14/16 0000 Signed Impressions: Service Date/Time: Monday, March 14, 2016 16:13 - CONCLUSION: Normal examination. Jere Toro MD Renal Ultrasound 03/13/16 0000 Signed Impressions: Service Date/Time: Sunday, March 13, 2016 16:39 - CONCLUSION: Unremarkable renal ultrasound. Abisai Lundy MD GI Procedure 03/05/16 0000 Signed Impressions: Service Date/Time: Friday, March 04, 2016 23:02 - CONCLUSION: ERCP as above. Vidal Ye MD Gall Bladder Ultrasound 03/04/16 0000 Signed Impressions: Service Date/Time: Friday, March 04, 2016 19:36 - CONCLUSION: 1. Thick-walled gallbladder with some pericholecystic fluid and multiple gallstones in the region of the neck. The findings are suggestive of acute cholecystitis. Clinical correlation is recommended. 2. Fatty liver. 3. Minimal ascites within Polanco's pouch. 4. Poor visualization of the pancreas due to shadowing bowel gas. Odilon Butler MD Cholangiopancreatography MRI 03/04/16 0000 Signed Impressions: Service Date/Time: Friday, March 04, 2016 18:24 - CONCLUSION: 1. Extensive edema throughout the retroperitoneum and pancreas. No abscess or pseudocyst. 2. Tiny layering gallstones within the gallbladder. No discrete common bile duct stone. There is tapering of the common bile duct within the pancreatic head felt to be secondary to the edema within the pancreas. No discrete mass or choledocholithiasis. No intrahepatic or extrahepatic ductal dilatation. Maxwell Hsu Jr., MD Physical Exam NECK: Neck is supple, no JVD, no lymphadenopathy. CHEST: Tachypneic, labored CARDIAC: RRR ABDOMEN: Soft, distended, diffuse tenderness, hypoactive bowel sounds. EXTREMITIES: Generalized edema. SKIN: Lethargic, non verbal (Amawi,Khawla RACK LOADER) Assessment and Plan Plan ASSESSMENT: - Severe acute gallstone pancreatitis. S/P ERCP (03/04/16)-----> stricture in the distal common bile duct, normal intrahepatic ducts, normal pancreatic ducts , patent cystic duct. S/P stent placement. Triglycerides 117. IgG [address] scan ()-----> 1. Large pseudocyst as described above, given its size probably best treated with a cyst gastrostomy. Percutaneous drainage of the inferior portion of this may be necessary if this all doesn't drain through the cyst gastrostomy. 2. There is very little pancreatic tissue remaining. 3. Biliary stent is noted without intrahepatic biliary ductal dilatation. CT scan 03/15 with diffuse inflammatory changes surrounding the entire pancreas characteristic of pancreatitis. No new or significant changes are demonstrated compared to the prior study. Improving. WBC improving. TPN off. Has puree diet but has poor po intake. Rpt CT scan with large pseudocyst 19.6 x 4.8 cm. EUS not available at this facility for marsupialization. There were plans by Dr. Lucero to transfer to [facility] for EUS - Severe diffuse ileus. RESOLVED. Currently on Colace. + BM. - Biliary obstruction/cholangitis secondary to pancreatic head edema. S/P ERCP (03/04/16)-----> stricture in the distal common bile duct, normal intrahepatic ducts, normal pancreatic ducts, patent cystic duct. S/P stent placement. LFTs are stable. - Acute cholecystitis. S/P GS evaluation. - Acute sepsis, Leukocytosis. Resolved, Abx per ID. - Acute renal failure. Resolved. Off HD. - Resp. Insuff. Resp. shallow. Diminished breath sounds. - Anemia. H/H 7.9/26.3 Recommendations - Can resume TF - Case management working on transferring the patient to [facility] for EUS guided drainage of the pseudocyst. - Abx per ID - S/P GS eval - Cancel IR consult - Supportive care - Poor prognosis - Patient seen and examined by Dr. Lucero and myself and this note is written on his behalf. (Otis Barreto) Physician Comments Seen and examined with IVONNE, original plan was to have IR drain large pseudocyst , this was changed to possible transfer to [facility] and endoscopic drainage under EUS. Now the current plan according to Dr. Stewart appears to be to transfer pt. to [facility] for drainage and further management. Will sign off. Thank you (Oscar Lucero MD) Otis Barreto Apr 06, 2016 11:02 Oscar Lucero MD Apr 06, 2016 16:41
--- NOTE | 2016-04-06 14:28 | HHI.IDPN ---
Subjective Subjective Remarks Still appears sick Less anasarca. UO better. No fever Normal WBC. Antibiotics Meropenem IV Lines Line sites with no e/o infection Past Medical History reviewed. Allergies: Coded Allergies: No Known Allergies (Verified , 02/18/15) Objective . Vital Signs Date Time Temp Pulse Resp B/P Pulse Ox O2 Delivery O2 Flow Rate FiO2 04/06/16 14:00 80 04/06/16 12:00 98.9 91 19 135/63 96 04/06/16 12:00 91 04/06/16 10:00 80 04/06/16 08:00 96 Nasal Cannula 3.00 04/06/16 08:00 78 04/06/16 08:00 98.4 78 19 126/61 97 04/06/16 06:00 78 04/06/16 04:00 98.5 84 22 167/73 99 04/06/16 04:00 84 04/06/16 02:00 86 04/06/16 00:00 98 04/06/16 00:00 100.2 98 32 166/75 95 04/05/16 22:00 93 Nasal Cannula 2.00 04/05/16 22:00 90 04/05/16 20:00 98.4 90 25 158/71 96 04/05/16 20:00 90 04/05/16 19:00 96 Nasal Cannula 3.00 04/05/16 18:00 89 04/05/16 16:00 98 04/05/16 16:00 98.0 84 22 144/64 98 04/05/16 04/05/16 04/06/16 15:00 23:00 07:00 Intake Total 1083 ml 100 ml 525 ml Output Total 1700 ml 1350 ml 450 ml Balance -617 ml -1250 ml 75 ml IV Total 654 ml 425 ml Tube Feeding 329 ml 0 ml 0 ml Tube Irrigant 50 ml Other 100 ml 50 ml 100 ml Output Urine Total 1400 ml 1350 ml 450 ml Stool Total 300 ml # Bowel Movements 2 1 0 . Laboratory Tests Test 04/05/16 05:45 White Blood Count 10.1 TH/MM3 Red Blood Count 2.95 MIL/MM3 Hemoglobin 7.9 GM/DL Hematocrit 26.3 % Mean Corpuscular Volume 89.0 FL Mean Corpuscular Hemoglobin 26.8 PG Mean Corpuscular Hemoglobin 30.1 % Concent Red Cell Distribution Width 15.7 % Platelet Count 293 TH/MM3 Mean Platelet Volume 10.5 FL Neutrophils (%) (Auto) 59.3 % Lymphocytes (%) (Auto) 25.9 % Monocytes (%) (Auto) 13.0 % Eosinophils (%) (Auto) 1.4 % Basophils (%) (Auto) 0.4 % Neutrophils # (Auto) 6.0 TH/MM3 Lymphocytes # (Auto) 2.6 TH/MM3 Monocytes # (Auto) 1.3 TH/MM3 Eosinophils # (Auto) 0.1 TH/MM3 Basophils # (Auto) 0.0 TH/MM3 CBC Comment DIFF FINAL Differential Comment Laboratory Tests Test 04/05/16 04/06/16 05:45 05:53 Sodium Level 143 MEQ/L 143 MEQ/L Potassium Level 3.1 MEQ/L 3.5 MEQ/L Chloride Level 100 MEQ/L 102 MEQ/L Carbon Dioxide Level 38.3 MEQ/L 36.0 MEQ/L Anion Gap 5 MEQ/L 5 MEQ/L Blood Urea Nitrogen 19 MG/DL 16 MG/DL Creatinine 0.57 MG/DL 0.44 MG/DL Estimat Glomerular Filtration 129 ML/MIN 174 ML/MIN Rate Random Glucose 198 MG/DL 128 MG/DL Calcium Level 10.5 MG/DL 10.4 MG/DL Magnesium Level 1.5 MG/DL Microbiology Date/Time Procedure Status Source Growth 04/05/16 14:10 Cancelled Fluid Pancreatic Fluid 04/05/16 14:10 Cancelled Fluid Pancreatic Fluid 04/05/16 14:10 Cancelled Fluid Pancreatic Fluid Imaging Last Impressions Chest X-Ray 03/28/16 0600 Signed Impressions: Service Date/Time: Monday, March 28, 2016 05:19 - CONCLUSION: Cardiomegaly with bilateral perihilar opacities and left lower lobe density. Wilian Rojas MD Abdomen X-Ray 03/26/16 0600 Signed Impressions: Service Date/Time: Saturday, March 26, 2016 05:18 - CONCLUSION: Improving distended loops of bowel. The metallic tip feeding tube has changed position and is now projected in the stomach. Maxwell Choi MD Lower Extremity Ultrasound 03/20/16 0000 Signed Impressions: Service Date/Time: Sunday, March 20, 2016 14:32 - CONCLUSION: No DVT of either lower extremity. Darrian Leary MD Abdomen/Pelvis CT 03/15/16 0000 Signed Impressions: Service Date/Time: Tuesday, March 15, 2016 15:26 - CONCLUSION: 1. Compared to the prior exam, the previously noted gas bubbles in the wall of the cecum have resolved. 2. Otherwise, no other new or significant changes compared to the prior study. Wilver Bond MD Head CT 03/14/16 0000 Signed Impressions: Service Date/Time: Monday, March 14, 2016 16:13 - CONCLUSION: Normal examination. Jere Toro MD Renal Ultrasound 03/13/16 0000 Signed Impressions: Service Date/Time: Sunday, March 13, 2016 16:39 - CONCLUSION: Unremarkable renal ultrasound. K. Stephen Lundy MD GI Procedure 03/05/16 0000 Signed Impressions: Service Date/Time: Friday, March 04, 2016 23:02 - CONCLUSION: ERCP as above. Vidal Ye MD Gall Bladder Ultrasound 03/04/16 0000 Signed Impressions: Service Date/Time: Friday, March 04, 2016 19:36 - CONCLUSION: 1. Thick-walled gallbladder with some pericholecystic fluid and multiple gallstones in the region of the neck. The findings are suggestive of acute cholecystitis. Clinical correlation is recommended. 2. Fatty liver. 3. Minimal ascites within Polanco's pouch. 4. Poor visualization of the pancreas due to shadowing bowel gas. Odilon Butler MD Cholangiopancreatography MRI 03/04/16 0000 Signed Impressions: Service Date/Time: Friday, March 04, 2016 18:24 - CONCLUSION: 1. Extensive edema throughout the retroperitoneum and pancreas. No abscess or pseudocyst. 2. Tiny layering gallstones within the gallbladder. No discrete common bile duct stone. There is tapering of the common bile duct within the pancreatic head felt to be secondary to the edema within the pancreas. No discrete mass or choledocholithiasis. No intrahepatic or extrahepatic ductal dilatation. Maxwell Hsu Jr., MD Physical Exam GENERAL: Obese AAF patient, in no distress. SKIN: No rashes, ecchymoses or lesions. Cool and dry. HEAD: Atraumatic. Normocephalic. No temporal or scalp tenderness. EYES: Pupils equal round and reactive. No scleral icterus. ENT: Oral mucosae moist NECK: Trachea midline. Supple, nontender, no meningeal signs. CARDIOVASCULAR: HS audible. No murmur. Well perfused extremities RESPIRATORY: Clear to auscultation. Breath sounds equal bilaterally but decreased in the bases. GASTROINTESTINAL: Abdomen less tense , + tenderness in RUQ and epigastric region , distended, abd wall edema noted. BS audible MUSCULOSKELETAL: Generalized anasarca noted, improved NEUROLOGICAL: Lethargic Assessment & Plan Remarks Acute Severe Pancreatitis with hemorrhage. Pancreatic Pseudocyst. Acute Pneumatosis Intestinalis vs anasarca related. Better. Acute cholangitis Clinically appears to have slow improvement All blood clx remain negative Leukocytosis - resolved Diarrhea , C.diff negative Recs: Continue Meropenem IV for now. repeat blood clx if cont to have fever Await transfer to [facility] for EUS guided gastrocystostomy. Follow clinically. dion Ryan. eCly Ayers MD Apr 06, 2016 14:28
[2016-04-06] MEDS ORDERED: HEPA10003 SQ (15:56)
[2016-04-06] MEDS ORDERED: HYDR10TA23 PO (15:56)
[2016-04-06] MEDS ORDERED: ISOS10TA PO (15:56)
[2016-04-06] MEDS ORDERED: FURO10IN IV PUSH (15:56)
[2016-04-06] MEDS ORDERED: Potassium Cl 40 Meq/30 Ml Liq PO (15:56)
[2016-04-06] MEDS ORDERED: NOVORP2 SQ (15:56)
[2016-04-06] MEDS ORDERED: LOPE1LIQ3 PO (15:56)
[2016-04-06] MEDS ORDERED: METO-309 PO (15:56)
--- NOTE | 2016-04-06 16:00 | HHI.PR ---
Subjective Remarks continued abdominal pain and distension. Objective Vitals Vital Signs Date Time Temp Pulse Resp B/P Pulse Ox O2 Delivery O2 Flow Rate FiO2 04/06/16 14:00 80 04/06/16 12:00 98.9 91 19 135/63 96 04/06/16 12:00 91 04/06/16 10:00 80 04/06/16 08:00 96 Nasal Cannula 3.00 04/06/16 08:00 78 04/06/16 08:00 98.4 78 19 126/61 97 04/06/16 06:00 78 04/06/16 04:00 98.5 84 22 167/73 99 04/06/16 04:00 84 04/06/16 02:00 86 04/06/16 00:00 98 04/06/16 00:00 100.2 98 32 166/75 95 04/05/16 22:00 93 Nasal Cannula 2.00 04/05/16 22:00 90 04/05/16 20:00 98.4 90 25 158/71 96 04/05/16 20:00 90 04/05/16 19:00 96 Nasal Cannula 3.00 04/05/16 18:00 89 04/05/16 16:00 98 04/05/16 16:00 98.0 84 22 144/64 98 04/05/16 04/05/16 04/06/16 15:00 23:00 07:00 Intake Total 1083 ml 100 ml 525 ml Output Total 1700 ml 1350 ml 450 ml Balance -617 ml -1250 ml 75 ml IV Total 654 ml 425 ml Tube Feeding 329 ml 0 ml 0 ml Tube Irrigant 50 ml Other 100 ml 50 ml 100 ml Output Urine Total 1400 ml 1350 ml 450 ml Stool Total 300 ml # Bowel Movements 2 1 0 Result Diagram: 04/05/16 0545 04/06/16 0553 Imaging Last Impressions Chest X-Ray 03/09/16 0000 Signed Impressions: Service Date/Time: February 13:11 - CONCLUSION: Left lower lobe atelectasis versus infiltrate is unchanged. Maxwell Hsu Jr., MD Abdomen X-Ray 03/09/16 0000 Signed Impressions: Service Date/Time: February 11:11 - CONCLUSION: 1. The tip of the weighted feeding tube is located in the descending portion of the duodenum. Scar Resendez MD Abdomen/Pelvis CT 03/08/16 0000 Signed Impressions: Service Date/Time: Tuesday, March 08, 2016 15:28 - CONCLUSION: Severe changes of pancreatitis, potentially with areas of hemorrhagic conversion. Darrian Engel MD GI Procedure 03/05/16 0000 Signed Impressions: Service Date/Time: Friday, March 04, 2016 23:02 - CONCLUSION: ERCP as above. Vidal Ye MD Gall Bladder Ultrasound 03/04/16 0000 Signed Impressions: Service Date/Time: Friday, March 04, 2016 19:36 - CONCLUSION: 1. Thick-walled gallbladder with some pericholecystic fluid and multiple gallstones in the region of the neck. The findings are suggestive of acute cholecystitis. Clinical correlation is recommended. 2. Fatty liver. 3. Minimal ascites within Polanco's pouch. 4. Poor visualization of the pancreas due to shadowing bowel gas. Odilon Butler MD Cholangiopancreatography MRI 03/04/16 0000 Signed Impressions: Service Date/Time: Friday, March 04, 2016 18:24 - CONCLUSION: 1. Extensive edema throughout the retroperitoneum and pancreas. No abscess or pseudocyst. 2. Tiny layering gallstones within the gallbladder. No discrete common bile duct stone. There is tapering of the common bile duct within the pancreatic head felt to be secondary to the edema within the pancreas. No discrete mass or choledocholithiasis. No intrahepatic or extrahepatic ductal dilatation. Maxwell Hsu Jr., MD Objective Remarks GENERAL: This is a well-nourished, well-developed patient, in no apparent distress. CARDIOVASCULAR: Regular rate and rhythm without murmurs, gallops, or rubs. RESPIRATORY: Clear to auscultation. Breath sounds equal bilaterally. No wheezes , rales, or rhonchi. GASTROINTESTINAL: Abdomen soft, non-tender, nondistended. Normal active bowel sounds MUSCULOSKELETAL: Extremities without clubbing, cyanosis, or edema. NEURO: Alert & Oriented x4 to person, place, time, situation. Moves all ext x4 Date of Insertion: Mar 22, 2016 Line: PICC Side: Left Location: Antecubital A/P Problem List: (1) Severe sepsis with acute organ dysfunction Status: Acute Plan: - Pt admitted with sudden onset of abd pain, nausea/vomiting on 03/04/16 - LFTs were elevated at TBili 4.0, AST 472, ALT 378, AlkPhos 154 with Lipase of 7635 - Also noted to have an elevated Lactic acid of 4.5 and was admitted to ICU - MRCP (03/04) --> Extensive edema throughout the retroperitoneum and pancreas. No abscess or pseudocyst. Tiny layering gallstones within the gallbladder. No discrete common bile duct stone. There is tapering of the common bile duct within the pancreatic head felt to be secondary to the edema within the pancreas. No discrete mass or choledocholithiasis. No intrahepatic or extrahepatic ductal dilatation. - GB US (03/04) --> Thick-walled gallbladder with some pericholecystic fluid and multiple gallstones in the region of the neck. The findings are suggestive of acute cholecystitis. Fatty liver. Minimal ascites within Polanco's pouch. - Pt was seen by GI and underwent ERCP with stent placement in the CBD on - repeat CT Abd/pelvis (03/08/16) severe pancreatitis, potentially with areas of hemorrhagic conversion. -CT abdomen and pelvis 03/15 appears to be less pneumatosis intestinalis in the ascending colon/noted and likely colonic ileus admitted with cholangitis. 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 seems to correct to over 13. ?prim. hyperparathyroidism encephalopathy. could be metabolic related to na/ca anasarca. 20 kg weight gain since admission hypokalemia related to diuretic cont tube feeding. increase as not taking po. lower free flush added gentle d5w and lasix.increase lasix and kcl pamidronate as ca corrects to 13.1 and pt with encephalopathy recheck na and ca level and monitor for cognitive improvement PT daily dvt prophylaxis cont abx per ID...length of rx to be decided by Dr Ayers laxatives and reglan stopped cont ppi discussed with nursing and charge nurse. mental status is same for quite some time. no acute change today. discussed with brother at bedside. gaurded prognosis. 04/05/16 - no change in clinical status - guarded prognosis - pt needs endoscopic drainage of pancreatic pseudocyst - case d/w Dr. Mark Anthony Sharp, Chief of General Surgery at [facility] - pt will be transferred to [facility] today for above service not available at [facility] (2) Pancreatitis, acute Status: Acute Plan: - See above. (3) Cholangitis Status: Acute Plan: - See above (4) Ventricular tachycardia (paroxysmal) Status: Acute Plan: - Cardiology consulted on 03/08 due to pt having a two runs of ventricular tachycardia on 03/07 which was felt to be secondary to her acute illness. - Pt was started on Metoprolol 50mg Q12H - No further issues with dysrhythmia noted - 2D echo (03/08) - Estimated EF 55-60% - Mild tricuspid regurgitation - PA peak pressure 39mmHg (5) HTN (hypertension) Status: Chronic Plan: - Cont. Metoprolol 50mg BID - Cont. Lisinopril 10mg BID (6) Renal insufficiency Status: Acute Plan: -see above Problem Qualifiers (1) Pancreatitis, acute: Yandel Stewart DO Apr 06, 2016 16:00
--- NOTE | 2016-04-06 19:11 | HHI.HCPN ---
Reason for visit a. To assist with evaluation and management of symptoms including: pain; encephalopathy; dyspnea b. To assist medical decision maker(s) with: better understanding of current medical conditions; weighing benefits/burdens of medical treatment options; making medical treatment decisions. . Subjective/Interval History Patient is awake and alert at time of my visit. Daughter and two granddaughters are at bedside. Interventional radiology has determined they cannot drain the pseudocyst. Arrangements have been made to transfer the [facility] to under go drainage via endoscopic ultrasound. Patient denies pain,sob, nausea. Daughter and granddaughter had multiple questions which I attempted to answer. Patient indicated she wanted to be present for the discussion but she did not have any questions. No significant clinical change overnight. Afebrile. VSS stable. 02 sats in upper 90s on 02 via N/C. Good urine output with negative fluid balance over last 4 days. Multiple bowel movements today. . From Dr. Reid's initial palliative care consultation note of 04/04/16... Ms. Dalton is a 66-year-old female with a past medical history notable for breast cancer and hypertension who presented to the [facility] Emergency Department on 03/04/16 with a 1-2 day history of severe and unrelenting nausea/ vomiting. There was also abdominal pain/tenderness. She had been unable to keep anything down on the day of presentation. The patient denied fevers, chills, dysuria, or hematuria. She had had a loose stool the day prior to presentation. Vital signs in the emergency room revealed the following: Temperature 97.8; pulse 70; respiratory rate 14; blood pressure 204/90; pulse oximetry 96% on O2 at 2 L a minute. Initial examination by the emergency department provider showed the following: Patient was ill-appearing. Cardiovascular and respiratory exams were unremarkable. The abdomen was soft but diffusely tender to palpation. Tenderness was most pronounced in the upper abdomen but there was no rebound or guarding. The remainder of the exam was unremarkable. Initial diagnostic testing in the emergency department revealed the following: * Arterial blood gases showed pH 7.42; PCO2 35; PCO2 63; bicarbonate 23; base excess -1.1 on room air. * Urinalysis showed trace glucose; small occult blood; moderate bilirubin; 33 WBCs; rare bacteria; moderate mucus * CBC showed WBC 16.8; hemoglobin 14.5; platelets 246 * Coag profile showed PT 12.0; INR 1.1; PTT 24.3 * Serum chemistry panel showed sodium 138; potassium 3.1; chloride 100; CO2 25.4 ; anion gap 13; BUN 14; creatinine 1.2; glucose 207; lactic acid 4.5; calcium 10.5 * Liver function studies show total bilirubin 4.0; AST 472; ALT 378; alkaline phosphatase 154; total protein 8.5; albumin 3.7 * Lipase was 7635 * Troponin was less than 0.02 * Upright plain films revealed no free air in the abdomen. In the emergency department, differential diagnosis included perforated ulcer, cholecystitis, colitis, cholangitis, sepsis, and ischemic bowel. The patient was given 2 L of IV fluid. Cultures were obtained. She was empirically started on intravenous Zosyn. Gastroenterology was consulted and the GI physician ordered MRCP. Critical care was consulted for admission to the medical intensive care unit. Abdominal ultrasound showed a thick-walled gallbladder with some pericholecystic fluid and multiple gallstones in the region of the neck. The findings were felt to be suggestive of acute cholecystitis. The study also revealed a fatty liver and minimal ascites. MRCP showed extensive edema throughout the retroperitoneum and pancreas with no abscess or pseudocyst. The MRCP confirmed tiny layering gallstones within the gallbladde but no discrete common bile duct stone. The patient underwent ERCP. 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 There was good flow of bile following the procedure. The patient initially improved, but she had a persistent leukocytosis and began having low-grade elevated temperatures. The patient also developed some short runs of ventricular tachycardia. Repeat CT imaging on 03/08/16 showed severe changes of pancreatitis potentially with areas of hemorrhagic conversion. Cardiology consultation took place for the ventricular tachycardia and the patient was placed on beta blockers. An echocardiogram was ordered which was relatively normal. With some worsening of abdominal pain, decreased urine output, increasing creatinine, and an increasing white blood count, critical care was reconsulted and the patient was transferred back to the intensive care unit. Renal decompensation continued and the patient required hemodialysis beginning . She became more lethargic. TPN was initiated on 03/15/16. An insulin drip was started to control blood sugars. The patient continued to have elevated temperatures but showed other signs of improvement. She was transitioned from TPN to tube feedings. She was able to get out of bed to chair. Her white blood count stabilized. Hemodialysis was stopped. the patient , however, has declined again -- she is now quite lethargic and minimally interactive. Her picture has become one of severe pancreatitis. I have spoken at length with Drs. Stewart and Nic. Dr. Stewart is quite concerned given the patient's course , that the prognosis is poor and that the patient may not survive the hospitalization or might survive in a debilitated condition for which she will never be able to fully recover. Dr. Lucero felt that although her healing/recovery was taking longer than expected, that it was still quite possible that by providing good supportive care for a while longer she will be able to turn the corner and get better. . . Family/friend interactions Met initially with daughter and two granddaughters as noted above. Spoke for about 20 minutes answering questions about her current condition and discussing the procedure for which she was being transferred. We also discussed the plan to return the patient here post procedure once stable. Later, I was notified that the patient's two sisters had arrived from [place]. One claimed to have paperwork indicating she was the health care surrogate , but I did not see the paperwork. She will be going to [place] with the patient and will bring copies with her. The daughter provided permission for me to speak with the sisters and as one of them might be the designated health care surrogate, I discussed the case from presentation until now and what was to be expected going forward. We spent some time on the challenges that lie ahead. Family knows the patient remains critically ill. They are aware that even if she improves from the pancreatitis, she is quite weak and deconditioned and will remain vulnerable to infections and other setbacks for some time. Rehab will be challenging given she has two arthritic hips that need to be replaced and ultimately she will need gall bladder surgery. It is still unclear how much pancreatic function she will have if / when the inflammation resolves. Sisters agree with daughter that the patient would want aggressive care for now and would want "full code" status. . Advance Directives Living Will: Never completed Health Care Surrogate: Never completed Durable Power of Adjunct Philosophy Faculty: Never completed Advance Directive Specifics Date completed: Never completed per daughter. One of the patient's sisters told a nurse on that she had been appointed the surrogate, had paperwork to prove it, and that she was going to drive here personally to get copies of the legal forms on the chart. . Health Care Surrogate(s): No written designation of health care surrogate available at this time. One of the patient's sisters told a nurse on 04/05/16 that she had been appointed the surrogate, had paperwork to prove it, and that she was going to drive here personally to get copies of the legal forms on the chart. . . Documented care wishes: No written documentation of health care goals/preferences. . Objective Vital Signs Date Time Temp Pulse Resp B/P Pulse Ox O2 Delivery O2 Flow Rate FiO2 04/06/16 18:00 79 04/06/16 16:00 75 04/06/16 16:00 98.9 75 26 144/68 96 04/06/16 14:00 80 04/06/16 12:00 98.9 91 19 135/63 96 04/06/16 12:00 91 04/06/16 10:00 80 04/06/16 08:00 96 Nasal Cannula 3.00 04/06/16 08:00 78 04/06/16 08:00 98.4 78 19 126/61 97 04/06/16 06:00 78 04/06/16 04:00 98.5 84 22 167/73 99 04/06/16 04:00 84 04/06/16 02:00 86 04/06/16 00:00 98 04/06/16 00:00 100.2 98 32 166/75 95 04/05/16 22:00 93 Nasal Cannula 2.00 04/05/16 22:00 90 04/05/16 20:00 98.4 90 25 158/71 96 04/05/16 20:00 90 04/05/16 19:00 96 Nasal Cannula 3.00 Intake & Output 04/06/16 04/06/16 07:00 19:00 Intake Total 625 ml 452 ml Output Total 1800 ml 800 ml Balance -1175 ml -348 ml IV Total 425 ml 352 ml Tube Feeding 0 ml Tube Irrigant 50 ml Other 150 ml 100 ml Output Urine Total 1800 ml 800 ml # Bowel Movements 1 0 . Physical Exam CONSTITUTIONAL/GENERAL: This is an obese patient in an SICU bed. Her eyes are open. She denies pain. She answers a few of my questions with very terse answers. TUBES/LINES/DRAINS: PICC line LUE; esparza catheter; nasal cannula 02; SCDs; NG tube SKIN: No jaundice, rashes. No wounds seen anteriorly. Skin temperature appropriate. Not diaphoretic. HEAD: Atraumatic. Normocephalic. EYES: Pupils equal and round. Extraocular motions intact though rarely tracks. No scleral icterus. No injection or drainage. Fundi not examined. ENT: Hearing grossly normal. Nose without bleeding or purulent drainage. NECK: Trachea midline. CARDIOVASCULAR: Regular rate and rhythm without murmurs, gallops, or rubs. No JVD. RESPIRATORY/CHEST: Symmetric, unlabored respirations. Clear to auscultation. Breath sounds equal bilaterally. No wheezes, rales, or rhonchi. GASTROINTESTINAL: Abdomen soft, slightly distended. No grimacing with gentle palpation. No hepato-splenomegaly, or palpable masses. No guarding. Bowel sounds present. GENITOURINARY: Without palpable bladder distension. Esparza catheter in place. MUSCULOSKELETAL: Extremities without clubbing, cyanosis. 1-2+ edema in extremities. No joint tenderness or effusion noted. No calf tenderness-- SCDs in place. No mottling or clubbing. LYMPHATICS: Not examined. NEUROLOGICAL: Eyes open , follows simple commands, answers simple questions tersely. Moves all extremities. PSYCHIATRIC: Unable to evaluate due to level of responsiveness. . Diagnostic Tests Laboratory Laboratory Tests Test 04/04/16 04/04/16 04/05/16 04/05/16 04:35 19:18 05:45 11:55 White Blood Count 9.0 TH/MM3 10.1 TH/MM3 (4.0-11.0) (4.0-11.0) Red Blood Count 2.93 MIL/MM3 2.95 MIL/MM3 (4.00-5.30) (4.00-5.30) Hemoglobin 7.9 GM/DL 7.9 GM/DL (11.6-15.3) (11.6-15.3) Hematocrit 25.7 % 26.3 % (35.0-46.0) (35.0-46.0) Mean Corpuscular Volume 87.8 FL 89.0 FL (80.0-100.0) (80.0-100.0) Mean Corpuscular Hemoglobin 27.2 PG 26.8 PG (27.0-34.0) (27.0-34.0) Mean Corpuscular Hemoglobin 31.0 % 30.1 % Concent (32.0-36.0) (32.0-36.0) Red Cell Distribution Width 16.0 % 15.7 % (11.6-17.2) (11.6-17.2) Platelet Count 260 TH/MM3 293 TH/MM3 (150-450) (150-450) Mean Platelet Volume 9.6 FL 10.5 FL (7.0-11.0) (7.0-11.0) Neutrophils (%) (Auto) 56.6 % 59.3 % (16.0-70.0) (16.0-70.0) Lymphocytes (%) (Auto) 25.6 % 25.9 % (9.0-44.0) (9.0-44.0) Monocytes (%) (Auto) 16.4 % 13.0 % (0.0-8.0) (0.0-8.0) Eosinophils (%) (Auto) 1.0 % (0.0-4.0) 1.4 % (0.0-4.0) Basophils (%) (Auto) 0.4 % (0.0-2.0) 0.4 % (0.0-2.0) Neutrophils # (Auto) 5.1 TH/MM3 6.0 TH/MM3 (1.8-7.7) (1.8-7.7) Lymphocytes # (Auto) 2.3 TH/MM3 2.6 TH/MM3 (1.0-4.8) (1.0-4.8) Monocytes # (Auto) 1.5 TH/MM3 1.3 TH/MM3 (0-0.9) (0-0.9) Eosinophils # (Auto) 0.1 TH/MM3 0.1 TH/MM3 (0-0.4) (0-0.4) Basophils # (Auto) 0.0 TH/MM3 0.0 TH/MM3 (0-0.2) (0-0.2) CBC Comment DIFF FINAL DIFF FINAL Differential Comment Sodium Level 144 MEQ/L 143 MEQ/L (136-145) (136-145) Potassium Level 3.6 MEQ/L 3.1 MEQ/L (3.5-5.1) (3.5-5.1) Chloride Level 102 MEQ/L 100 MEQ/L (98-107) (98-107) Carbon Dioxide Level 37.6 MEQ/L 38.3 MEQ/L (21.0-32.0) (21.0-32.0) Anion Gap 4 MEQ/L (5-15) 5 MEQ/L (5-15) Blood Urea Nitrogen 21 MG/DL (7-18) 19 MG/DL (7-18) Creatinine 0.56 MG/DL 0.57 MG/DL (0.50-1.00) (0.50-1.00) Estimat Glomerular Filtration 131 ML/MIN 129 ML/MIN Rate (>89) (>89) Random Glucose 257 MG/DL 198 MG/DL (74-106) (74-106) Calcium Level 10.8 MG/DL 10.5 MG/DL (8.5-10.1) (8.5-10.1) Magnesium Level 1.6 MG/DL 1.5 MG/DL (1.5-2.5) (1.5-2.5) Blood Gas Puncture Site LT RADIAL Blood Gas Patient Temperature 98.6 Blood Gas HCO3 38 mmol/L (22-26) Blood Gas Base Excess 12.3 mmol/L (-2-2) Blood Gas Oxygen Saturation 96 % (90-100) Arterial Blood pH 7.41 (7.380-7.420) Arterial Blood Partial 60 mmHg (38-42) Pressure CO2 Arterial Blood Partial 103 mmHg Pressure O2 (61-120) Arterial Blood Oxygen Content 11.7 Vol % (12.0-20.0) Arterial Blood 1.9 % (0-4) Carboxyhemoglobin Arterial Blood Methemoglobin 0.8 % (0-2) Blood Gas Hemoglobin 8.6 G/DL (12.0-16.0) Oxygen Delivery Device NASAL CANNULA Blood Gas Liter Flow 4 L/M Prothrombin Time 13.4 SEC (9.8-11.6) Prothromb Time International 1.2 RATIO Ratio Activated Partial 23.6 SEC Thromboplast Time (24.3-30.1) Test 04/05/16 04/06/16 17:00 05:53 Stool C. difficile Toxin (PCR) NEGATIVE (NEGATIVE) Stl C. difficile Toxin PRESUMPTIVE Epiderm 027 NEGATIVE (NEGATIVE) Sodium Level 143 MEQ/L (136-145) Potassium Level 3.5 MEQ/L (3.5-5.1) Chloride Level 102 MEQ/L (98-107) Carbon Dioxide Level 36.0 MEQ/L (21.0-32.0) Anion Gap 5 MEQ/L (5-15) Blood Urea Nitrogen 16 MG/DL (7-18) Creatinine 0.44 MG/DL (0.50-1.00) Estimat Glomerular Filtration 174 ML/MIN Rate (>89) Random Glucose 128 MG/DL (74-106) Calcium Level 10.4 MG/DL (8.5-10.1) . Result Diagram: 04/05/16 0545 04/06/16 0553 Microbiology Microbiology Date/Time Procedure Status Source Growth 04/05/16 14:10 Cancelled Fluid Pancreatic Fluid 04/05/16 14:10 Cancelled Fluid Pancreatic Fluid 04/05/16 14:10 Cancelled Fluid Pancreatic Fluid Imaging Last Impressions Chest X-Ray 04/06/16 0800 Signed Impressions: Service Date/Time: March 03:13 - CONCLUSION: Slight interval improvement in aeration Darrian Engel MD Abdomen/Pelvis CT 04/04/16 0000 Signed Impressions: Service Date/Time: Monday, April 04, 2016 17:57 - CONCLUSION: 1. Large pseudocyst as described above, given its size probably best treated with a cyst gastrostomy. Percutaneous drainage of the inferior portion of this may be necessary if this all doesn't drain through the cyst gastrostomy. 2. There is very little pancreatic tissue remaining. 3. Biliary stent is noted without intrahepatic biliary ductal dilatation. Mark Anthony Resendez MD FACR Abdomen X-Ray 04/01/16 0000 Signed Impressions: Service Date/Time: Friday, April 01, 2016 10:02 - CONCLUSION: No evidence of obstruction. A feeding tube is in place. Its tip is in the distal stomach and a likely advanced into the duodenum if advanced further Thai Reno MD Lower Extremity Ultrasound 03/20/16 0000 Signed Impressions: Service Date/Time: Sunday, March 20, 2016 14:32 - CONCLUSION: No DVT of either lower extremity. Darrian Leary MD Head CT 03/14/16 0000 Signed Impressions: Service Date/Time: Monday, March 14, 2016 16:13 - CONCLUSION: Normal examination. Jere Toro MD Renal Ultrasound 03/13/16 0000 Signed Impressions: Service Date/Time: Sunday, March 13, 2016 16:39 - CONCLUSION: Unremarkable renal ultrasound. K. Stephen Lundy MD GI Procedure 03/05/16 0000 Signed Impressions: Service Date/Time: Friday, March 04, 2016 23:02 - CONCLUSION: ERCP as above. Vidal Ye MD Gall Bladder Ultrasound 03/04/16 0000 Signed Impressions: Service Date/Time: Friday, March 04, 2016 19:36 - CONCLUSION: 1. Thick-walled gallbladder with some pericholecystic fluid and multiple gallstones in the region of the neck. The findings are suggestive of acute cholecystitis. Clinical correlation is recommended. 2. Fatty liver. 3. Minimal ascites within Polanco's pouch. 4. Poor visualization of the pancreas due to shadowing bowel gas. Odilon Butler MD Cholangiopancreatography MRI 03/04/16 0000 Signed Impressions: Service Date/Time: Friday, March 04, 2016 18:24 - CONCLUSION: 1. Extensive edema throughout the retroperitoneum and pancreas. No abscess or pseudocyst. 2. Tiny layering gallstones within the gallbladder. No discrete common bile duct stone. There is tapering of the common bile duct within the pancreatic head felt to be secondary to the edema within the pancreas. No discrete mass or choledocholithiasis. No intrahepatic or extrahepatic ductal dilatation. Maxwell Hsu Jr., MD . Procedures * MRCP * ERCP * PICC line . Assessment and Plan Disease Oriented Problem List: (1) Cholangitis Comment: Multiple gallstones. . (2) Pancreatitis, acute (3) Pseudocyst of pancreas Comment: Very large pseudocyst per CT of 04/04/16. . (4) Ventricular tachycardia (paroxysmal) (5) Severe sepsis with acute organ dysfunction Comment: cultures have been negative. . (6) HTN (hypertension) (7) Anasarca (8) Acute renal failure Comment: improving. . Symptom Scale: (1) Pain 0-10 Scale: Unable to quantify Comment: Patient has been mostly nonverbal during my visits. When verbal, she has denied pain. Nursing pain intensity levels mostly between 4 and 8. Pain has mostly been abdominal when she has been able to verbalize. Rare use of opiate analgesics. Most likely source of pain is currently her pancreatitis. . (2) Encephalopathy 0-10 Scale: Unable to quantify Comment: Nursing staff reports encephalopathy waxes and wanes. Encephalopathy is probably multi-factorial but mostly metabolic. . Pertinent Non-Medical Issues Psychosocial: Normally lives with two granddaughters and a great-granddaughter. 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 Spiritual: Adventism. Jainism/spirituality are a VERY important part of her life. Legal: Daughter says there are no advance directives. A sister claims she is the designated health care surrogate and says she has documentation. She indicated on 04/05/16 that she would be driving down with those documents. Ethical issues impacting care: Patient is currently incapacitated to make her own health care decision. Unclear whether she will regain capacity to make those decisions. . Important Contacts * Mariposa Dalton (daughter) -- [phone] * Ashley Taylor (sister) [phone] * Luz Maria Chavarria (granddaughter) H: [phone]; C: [phone] . Prognosis Patient's functional status prior to this hospitalization was good. 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 She has had a difficult hospital course with her cholangitis and pancreatitis and has not been able to turn the corner and improve. The CT of 04/04 revealed a very large pancreatic pseudocyst that is probably hindering recovery. She also appears to have a multi-factor encephalopathy. If there is successful pseudocyst drainage and patient is then able to improve , we may ultimately see return to home. If drainage cannot be done or there are further complications , prognosis may not be good. Even with improvement, the patient is already very deconditioned and debilitated and will face a challenging rehab with risk for infection and other complications. Rehab will be challenging delivery engineer her arthritic hips and ultimately, she will probably need her gall bladder removed. . Code Status: Full Code Plan == Code status: FULL CODE == Decision making: Patient has some waxing and waning capacity but at time of my visit was certainly not able to make her own health care decisions. While incapacitated, her daughter -- Mariposa Dalton -- is the proxy health care decision maker. Nursing staff heard on 04/05/16 that a sister had called indicating that she was the designated health care surrogate and had paperwork to prove it and that she was personally going to bring in the paperwork. I have not seen this paperwork. Will need to confirm appropriate health care decision maker if/ when patient returns. == Goals of medical treatment: Daughter has told me that the patient's goals/ preferences are aggressive. She would want everything done to try and get better including resuscitation attempts if necessary. Patient's sisters agree with this. == Pain: Patient denies pain at time of my vist. Pain has mostly been abdominal likely due to her pancreatitis. Even when verbal patient is not able to quantify/qualify pain well. She also has some chonic bilateral hip pain from osteoarthritis that is deteriorated to the point of requiring hip replacements. Nursing pain assessments show most pain levels in the 4-8 range. Her only opiate analgesic is currently [place] 5-325. Per nursing assessments, is appears to be adequate in reducing pain levels most of the time. No further recommendations at this time. == Encephalopathy: The cause of her waxing/waning mental status is unclear. Possibly delirium vs multi-factorial encephalopathy. Treating the underlying medical problem is the most important approach, but may want to consider low dose haloperidol (e.g. 0.5 mg per feeding tube q 8 hours ATC) if this appears to be an agitated delirium. == Dyspnea: Currently responding to nasal cannula 02 and prn nebs. No further recommendations at this time. == Patient is being transferred today to [facility] for endoscopic ultrasound drainage of the pancreatic pseudocyst. Will likely return to this facility once stable post-procedure. == Palliative care will follow to assist with symptom management and to further clarify goals of medical treatment as the clinical course evolves. . Time Spent Total Floor Time (mins): 80 (Total floor time includes chart review, patient exam, collaboration with primary nurse, and the above referenced conferences with family members. ) Face to Face Time (mins): 20 >50% Counseling/Coord of Care: Yes Attestation To help prompt me to consider important information that might be impacting today's encounter and assessment, information from prior notes written by myself or my colleagues may have been "brought forward" into today's note. My signature on this note, however, is an attestation that I personally performed the exam, history, and/or decision-making noted today, and, unless otherwise indicated, the interactions with patient, family, and staff as well as the review of records all occurred today. I also attest that the listed assessment and stated plan reflect my best clinical judgment today based on the combination of historical information, prior notes, and today's exam/ interactions. When time spent is documented, it refers only to time spent today by the signer, or if indicated, combined time spent today by collaborating physician/nurse practitioner. . Samuel Reid MD Apr 06, 2016 19:11
--- NOTE | 2016-04-14 22:27 | HHI.DS ---
Discharge Summary Admission Date Mar 04, 2016 at 18:03 Discharge Date: Apr 06, 2016 Admitting Diagnosis cholangitis (1) Severe sepsis with acute organ dysfunction Diagnosis: Principal (2) Pancreatitis, acute Diagnosis: Principal (3) Cholangitis Diagnosis: Principal (4) Ventricular tachycardia (paroxysmal) Diagnosis: Secondary (5) HTN (hypertension) Diagnosis: Secondary (6) Renal insufficiency Diagnosis: Secondary Consultants Dr. Cara Fairchild, Gastroenterology Dr. Brian Ceballos, General Surgery Dr. Estela Lares, Nephrology Dr. Samuel Reid, Palliative Medicine Dr. Star Cao, Cardiology Procedures ERCP with stent placement in the CBD on 03/04/16 Brief History This is a 66-year-old female who presents to the emergency department having had onset of vomiting starting yesterday evening, severe, constant, unable to keep anything down today. She did have a loose stool yesterday prior to the onset of her symptoms. She denies any fevers or chills. She denies any dysuria or hematuria. She's never had symptoms like this before. Patient is quite lethargic and most of her history is obtained through her family member. The patient does deny any headache or chest pain. She's never had surgery on her abdomen. Imaging Last Impressions Chest X-Ray 04/06/16 0800 Signed Impressions: Service Date/Time: March 03:13 - CONCLUSION: Slight interval improvement in aeration Darrian Engel MD Abdomen/Pelvis CT 04/04/16 0000 Signed Impressions: Service Date/Time: Monday, April 04, 2016 17:57 - CONCLUSION: 1. Large pseudocyst as described above, given its size probably best treated with a cyst gastrostomy. Percutaneous drainage of the inferior portion of this may be necessary if this all doesn't drain through the cyst gastrostomy. 2. There is very little pancreatic tissue remaining. 3. Biliary stent is noted without intrahepatic biliary ductal dilatation. Mark Anthony Resendez MD FACR Abdomen X-Ray 04/01/16 0000 Signed Impressions: Service Date/Time: Friday, April 01, 2016 10:02 - CONCLUSION: No evidence of obstruction. A feeding tube is in place. Its tip is in the distal stomach and a likely advanced into the duodenum if advanced further Thai Reno MD Lower Extremity Ultrasound 03/20/16 0000 Signed Impressions: Service Date/Time: Sunday, March 20, 2016 14:32 - CONCLUSION: No DVT of either lower extremity. Darrian Leary MD Head CT 03/14/16 0000 Signed Impressions: Service Date/Time: Monday, March 14, 2016 16:13 - CONCLUSION: Normal examination. Jere Toro MD Renal Ultrasound 03/13/16 0000 Signed Impressions: Service Date/Time: Sunday, March 13, 2016 16:39 - CONCLUSION: Unremarkable renal ultrasound. Abisai Lundy MD GI Procedure 03/05/16 0000 Signed Impressions: Service Date/Time: Friday, March 04, 2016 23:02 - CONCLUSION: ERCP as above. Vidal Ye MD Gall Bladder Ultrasound 03/04/16 0000 Signed Impressions: Service Date/Time: Friday, March 04, 2016 19:36 - CONCLUSION: 1. Thick-walled gallbladder with some pericholecystic fluid and multiple gallstones in the region of the neck. The findings are suggestive of acute cholecystitis. Clinical correlation is recommended. 2. Fatty liver. 3. Minimal ascites within Polanco's pouch. 4. Poor visualization of the pancreas due to shadowing bowel gas. Odilon Butler MD Cholangiopancreatography MRI 03/04/16 0000 Signed Impressions: Service Date/Time: Friday, March 04, 2016 18:24 - CONCLUSION: 1. Extensive edema throughout the retroperitoneum and pancreas. No abscess or pseudocyst. 2. Tiny layering gallstones within the gallbladder. No discrete common bile duct stone. There is tapering of the common bile duct within the pancreatic head felt to be secondary to the edema within the pancreas. No discrete mass or choledocholithiasis. No intrahepatic or extrahepatic ductal dilatation. Maxwell Hsu Jr., MD PE at Discharge GENERAL: This is a well-nourished, well-developed patient, in no apparent distress. CARDIOVASCULAR: Regular rate and rhythm without murmurs, gallops, or rubs. RESPIRATORY: Clear to auscultation. Breath sounds equal bilaterally. No wheezes , rales, or rhonchi. GASTROINTESTINAL: Abdomen soft, non-tender, nondistended. Normal active bowel sounds MUSCULOSKELETAL: Extremities without clubbing, cyanosis, or edema. NEURO: Alert & Oriented x4 to person, place, time, situation. Moves all ext x4 Hospital Course (1) Severe sepsis with acute organ dysfunction Status: Acute Plan: - Pt admitted with sudden onset of abd pain, nausea/vomiting on 03/04/16 - LFTs were elevated at TBili 4.0, AST 472, ALT 378, AlkPhos 154 with Lipase of 7635 - Also noted to have an elevated Lactic acid of 4.5 and was admitted to ICU - MRCP (03/04) --> Extensive edema throughout the retroperitoneum and pancreas. No abscess or pseudocyst. Tiny layering gallstones within the gallbladder. No discrete common bile duct stone. There is tapering of the common bile duct within the pancreatic head felt to be secondary to the edema within the pancreas. No discrete mass or choledocholithiasis. No intrahepatic or extrahepatic ductal dilatation. - GB US (03/04) --> Thick-walled gallbladder with some pericholecystic fluid and multiple gallstones in the region of the neck. The findings are suggestive of acute cholecystitis. Fatty liver. Minimal ascites within Polanco's pouch. - Pt was seen by GI and underwent ERCP with stent placement in the CBD on - repeat CT Abd/pelvis (03/08/16) severe pancreatitis, potentially with areas of hemorrhagic conversion. -CT abdomen and pelvis 03/15 appears to be less pneumatosis intestinalis in the ascending colon/noted and likely colonic ileus admitted with cholangitis. 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 seems to correct to over 13. ?prim. hyperparathyroidism encephalopathy. could be metabolic related to na/ca anasarca. 20 kg weight gain since admission hypokalemia related to diuretic cont tube feeding. increase as not taking po. lower free flush added gentle d5w and lasix.increase lasix and kcl pamidronate as ca corrects to 13.1 and pt with encephalopathy recheck na and ca level and monitor for cognitive improvement PT daily - guarded prognosis - pt needs endoscopic drainage of pancreatic pseudocyst - case d/w Dr. Mark Anthony Sharp, Chief of General Surgery at [facility] - pt will be transferred to [facility] today for above service not available at [facility] (2) Pancreatitis, acute Status: Acute Plan: - See above. (3) Cholangitis Status: Acute Plan: - See above (4) Ventricular tachycardia (paroxysmal) Status: Acute Plan: - Cardiology consulted on 03/08 due to pt having a two runs of ventricular tachycardia on 03/07 which was felt to be secondary to her acute illness. - Pt was started on Metoprolol 50mg Q12H - No further issues with dysrhythmia noted - 2D echo (03/08) - Estimated EF 55-60% - Mild tricuspid regurgitation - PA peak pressure 39mmHg (5) HTN (hypertension) Status: Chronic Plan: - Cont. Metoprolol 50mg BID - Cont. Lisinopril 10mg BID (6) Renal insufficiency Status: Acute Plan: -see above Pt Condition on Discharge: Guarded Discharge Disposition: Trnsfr to Other Facility Discharge Instructions DIET: Follow Instructions for: Nothing By Mouth Activities you can perform: Continue Bedrest New Medications: Furosemide Inj (Furosemide Inj) 10 Mg/Ml Inj 40 MG IV PUSH BID@,18 volume overload Days 7 INJECTION Heparin Sodium (Porcine) (Heparin Sodium) 10,000 Unit/Ml Inj 5000 UNITS SQ Q8HR anticoagulation Days 7 INJECTION Hydralazine (Hydralazine) 10 Mg Tab 10 MG PO Q8HR htn Days 30 TAB Insulin Human Regular Inj (Novolin R Inj) 1,000 Unit/10 Ml Vial 1 UNITS SQ Q4HR dm Days 28 INJECTION Isosorbide Dinitrate (Isosorbide Dinitrate) 10 Mg Tab 10 MG PO Q8HR htn Days 30 TAB Loperamide Liq (Loperamide Liq) 1 Mg/5 Ml Liq 2 MG PO BID diarrhea Days 30 ML Metoprolol Tartrate (Lopressor) 50 Mg Tab 50 MG PO Q8HR afib Days 30 TAB ([Potassium Cl 40 Meq/30 Ml Liq]) 40 MEQ/30 ML LIQD 40 MEQ PO BID lasix therapy Days 7 Ref 0 ML Discontinued Medications: Letrozole (Letrozole) 2.5 Mg Tab 1 TAB PO DAILY Lisinopril-Hctz (Lisinopril-Hctz) 20-25 Mg Tab 1 TAB PO DAILY Blood Pressure Management #30 Ref 0 TAB Yandel Stewart DO Apr 14, 2016 22:27
[2016-08-04] MEDS ORDERED: FAMO20TA2 PO (21:57)
[2016-08-04] MEDS ORDERED: ZENP1000 PO (21:57)
[2016-08-04] MEDS ORDERED: AMLO5TAB2 PO (21:57)
[2016-08-04] MEDS ORDERED: THERM PO (21:57)
[2016-08-04] MEDS ORDERED: WARF-20 PO (21:57)
[2016-08-04] MEDS ORDERED: MAGN400T5 (21:57)
[2016-08-04] MEDS ORDERED: OXYC1CAP PO (21:57)
[2016-08-04] MEDS ORDERED: CAPS0.022 TOPICAL (21:57)
[2016-08-04] MEDS ORDERED: GABA100C4 PO (21:57)
[2016-08-04] MEDS ORDERED: MICO1POW14 TOPICAL (21:57)
[2016-08-04] MEDS ORDERED: ACET325T PO (21:57)
[2016-08-21] MEDS ORDERED: WHEEMIS3 (16:02)
[2016-08-21] MEDS ORDERED: Tub Transfer Bench (16:02)
[2016-08-21] MEDS ORDERED: COMMODE PAIL WI1 MIS (16:02)
[2016-08-21] MEDS ORDERED: GETGO ROLLING W1 MI1 (16:02)
[2016-08-21] MEDS ORDERED: HOSP BED1 (16:02)
[2016-08-28] MEDS ORDERED: LEVEMIR SQ (09:18)
[2016-08-28] MEDS ORDERED: FAMO20TA2 PO (09:18)
[2016-08-28] MEDS ORDERED: ZENP1000 PO (09:18)
[2016-08-28] MEDS ORDERED: GABA100C4 PO (09:18)
[2016-08-28] MEDS ORDERED: METO-309 PO (09:18)
[2016-08-28] MEDS ORDERED: COUM5TAB PO (09:18)
[2016-08-28] MEDS ORDERED: AMLO5TAB2 PO (09:18)
[2016-08-28] MEDS ORDERED: MAGN400T3 PO (09:18)
[2016-08-28] MEDS ORDERED: POTA20TA5 PO (09:18)
[2016-08-28] MEDS ORDERED: THERM PO (09:18)
== END 2016-04-06 19:00 | disposition short-term general hospital (02) | DRG 871 ==
LOC: NEPC 16:08 → NEDA 18:03 → N03A 18:59
PROVIDERS: ADMIT Surgery Surgical Critical Care; ATTEND Surgery Surgical Critical Care
PROC: BF111ZZ Fluoroscopy of Biliary and Pancreatic Ducts using Low Osmolar Contrast (ICD-10-PCS; 2016-03-04)
PROC: 0F7D8DZ Dilation of Pancreatic Duct with Intraluminal Device, Via Natural or Artificial Opening Endoscopic (ICD-10-PCS; principal; 2016-03-04 22:25)
PROC: 02HV33Z Insertion of Infusion Device into Superior Vena Cava, Percutaneous Approach (ICD-10-PCS; 2016-03-13)
PROC: 5A1D60Z (ICD-10-PCS; 2016-03-15)
PROC: 30233N1 Transfusion of Nonautologous Red Blood Cells into Peripheral Vein, Percutaneous Approach (ICD-10-PCS; 2016-03-24)
DX: A41.9 Sepsis, unspecified organism (principal); K85.11 Biliary acute pancreatitis with uninfected necrosis; N17.0 Acute kidney failure with tubular necrosis; J96.90 Respiratory failure, unspecified, unspecified whether with hypoxia or hypercapnia; I47.2 Ventricular tachycardia; G93.41 Metabolic encephalopathy; E87.0 Hyperosmolality and hypernatremia; K80.01 Calculus of gallbladder with acute cholecystitis with obstruction; E87.2 Acidosis; E87.3 Alkalosis; K83.0 Cholangitis; K86.3 Pseudocyst of pancreas; I47.1 Supraventricular tachycardia; K56.7 Ileus, unspecified; Z68.42 Body mass index [BMI] 45.0-49.9, adult; R65.20 Severe sepsis without septic shock; I16.0 Hypertensive urgency; E78.5 Hyperlipidemia, unspecified; I10 Essential (primary) hypertension; R73.9 Hyperglycemia, unspecified; E83.52 Hypercalcemia; E87.6 Hypokalemia; R60.1 Generalized edema; R19.7 Diarrhea, unspecified; E83.39 Other disorders of phosphorus metabolism; E86.0 Dehydration; E87.70 Fluid overload, unspecified; T50.2X5A Adverse effect of carbonic-anhydrase inhibitors, benzothiadiazides and other diuretics, initial encounter; D64.9 Anemia, unspecified; E88.09 Other disorders of plasma-protein metabolism, not elsewhere classified; E66.01 Morbid (severe) obesity due to excess calories; K63.89 Other specified diseases of intestine; Z85.3 Personal history of malignant neoplasm of breast
CPT/HCPCS: 36430; 36556; 36569; 36600; 70450; 71010; 74000; 74176; 74177; 74181; 74330; 76377; 76705; 76775; 76937; 80048; 80053; 80061; 80074; 80076; 81001; 82140; 82150; 82248; 82306; 82397; 82550; 82552; 82570; 82652; 82784; 82787; 82805; 82948; 83605; 83690; 83735; 83970; 84100; 84132; 84155; 84165; 84300; 84484; 85007; 85025; 85027; 85384; 85610; 85730; 86850; 86900; 86901; 86920; 87015; 87040; 87070; 87086; 87205; 87493; 87641; 90935; 93005; 93306; 93970; 94150; 94640; 94664; 96361; 96374; 96375; C1769; C2625; C9113; J0171; J0360; J0461; J0610; J0630; J1120; J1170; J1580; J1642; J1644; J1720; J1815; J1817; J1940; J2185; J2212; J2248; J2270; J2370; J2405; J2430; J2543; J2765; J2805; J2997; J3010; J3475; J3480; J7030; J7040; J7050; J7070; J7120; P9016; P9047; Q4081; Q9963; Q9967